=== PATIENT | female | born 1960 | race Caucasian/White ===

== ENCOUNTER 2022-11-22 08:36 | Outpatient (CLI) | payer MEDICARE, BC, SELFPAY | END 2022-11-22 08:37 | disposition home or self-care (01) | PROVIDERS: PCP Nurse Practitioner Family; Visit Provider Nurse Practitioner Family | DX: E78.5 Hyperlipidemia, unspecified (principal); M81.0 Age-related osteoporosis without current pathological fracture; J44.9 Chronic obstructive pulmonary disease, unspecified | CPT/HCPCS: 80053; 80061; 82306; 85025 ==

== ENCOUNTER 2023-01-28 12:53 | Outpatient (CLI) | payer MEDICARE, BC, SELFPAY ==
--- NOTE | 2023-01-28 13:00 | CRLHL7_ITS ---
For Patients: As a result of the Century Cures Act, medical imaging exams and procedure reports are released immediately into your electronic medical record. You may view this report before your referring provider. If you have questions, please contact your health care provider. INDICATION: Lumbar radiculopathy. TECHNIQUE: Multiplanar multisequence noncontrast MR images acquired through the lumbar spine. COMPARISON: Lumbar spine radiographs 01/15/2023. FINDINGS: The lumbar lordosis is maintained. Mild leftward lumbar curvature. Vertebral heights maintained. No acute fracture. No T1 hypointense marrow replacing lesions. Normal conus terminates at L1-2. T12-L1: Mild disc degeneration. Shallow posterior disc bulge. No spinal canal or neural foraminal narrowing. L1-2: Mild disc degeneration. Shallow posterior bulge. No spinal canal or neural foraminal narrowing. L2-3: No spinal canal or neural foraminal narrowing. L3-4: Mild disc degeneration. No spinal canal or neural foraminal narrowing. L4-5: Mild to moderate disc degeneration. Shallow posterior disc bulge. Superiorly migrated left foraminal/far lateral disc extrusion measuring 4 mm in short axis contacts the exiting left L4 nerve root. Mild facet arthropathy. No spinal canal narrowing. Mild left without right neural foraminal narrowing. L5-S1: Moderate disc degeneration. Minimal endplate edema. Annular fissure. Shallow posterior disc bulge. Mild facet arthropathy. No spinal canal or neural foraminal narrowing. T2 hyperintense lesion in the right kidney inferior pole, most typical for a small renal cyst. IMPRESSION: 1. Multilevel lumbar spondylosis without spinal canal or neural foraminal stenosis. 2. At L4-5, superiorly migrated left foraminal/far lateral disc extrusion contacts the exiting left L4 nerve root and mildly narrows the left neural foramen. Dictated by Luciano Lozano MD @ 01/28/2023 2:28:00 PM (Electronically Signed)
== END 2023-01-28 12:54 | disposition home or self-care (01) ==
LOC: MRI 12:56
PROVIDERS: PCP Nurse Practitioner Family; Visit Provider Nurse Practitioner Family
DX: M54.16 Radiculopathy, lumbar region (principal); M47.896 Other spondylosis, lumbar region; M51.26 Other intervertebral disc displacement, lumbar region
CPT/HCPCS: 72148

== ENCOUNTER 2023-04-10 14:07 | Outpatient (CLI) | payer MEDICARE, BC, SELFPAY ==
--- NOTE | 2023-04-10 14:30 | CRLHL7_ITS ---
For Patients: As a result of the Century Cures Act, medical imaging exams and procedure reports are released immediately into your electronic medical record. You may view this report before your referring provider. If you have questions, please contact your health care provider. DXA BONE MINERAL DENSITY STUDY Reason for exam: Osteoporosis. Current height (in): 60. Weight (lb): 108. Menopause age: 40. Ethnicity: White. 1. Have you had a previous hip or vertebral fracture? Yes. 2. Have you had any fractures during your adult life which did not result from significant trauma (e.g., auto accident)? Yes. 3. Did either of your parents have a hip fracture? No. 4. Do you smoke? No. 5. Have you ever taken Glucocorticoids? No. 6. Do you have rheumatoid arthritis? No. 7. Do you have secondary osteoporosis? No. 8. Do you drink 3 or more alcoholic drinks per day? No. 9. Are you being treated for osteoporosis? Yes. 10. Have you ever taken any of the following medications: Actonel, Evista, Fosamax, Miacalcin, Reclast, Boniva, Forteo, HRT (i.e., estrogen/hormone therapy), Protelos, Prolia, Vitamin D, Calcium, other ??? please specify. ANSWER: Yes, Fosamax, vitamin D, and calcium. 11. Do you have any of the following medical conditions: Anorexia or bulimia, asthma or emphysema, end stage renal disease, hyperparathyroidism, any seizure disorders, cancer, inflammatory bowel diseases, hysterectomy, other ??? please specify. ANSWER: Yes, asthma or emphysema and lupus. 12. What was your maximum height (inches)? 60. 13. Do you perform weight bearing exercise regularly? Yes. 14. Do you regularly consume dairy products? Yes. 15. Do you drink caffeinated beverages? Yes. If female: 16. At what age did your period start? 16. 17. Are you premenopausal? No. 18. How many full-term pregnancies have you had? 2. 19. Have you ever missed your period for more than 6 months in a row (not including or menopause)? No. TECHNIQUE: Bone mineral density study was performed using the [employer]. FINDINGS: The results of the study expressed as bone mineral density (BMD) are as follows: Lumbar spine L1 to L4: BMD: 0.679 g/cm2. T-score: -3.3. Z-score: -1.7 Neck Left: BMD: 0.426 g/cm2. T-score: -3.8. Z-score: -2.4 Right: BMD: 0.469 g/cm2. T-score: -3.4. Z-score: -2.0 Total Left: BMD: 0.492 g/cm2. T-score: -3.7. Z-score: -2.6 Right: BMD: 0.515 g/cm2. T-score: -3.5. Z-score: -2.4 IMPRESSION: Osteoporosis. Reginald Harper M.D. Diagnostic Radiologist [email or web address] richmond/Dictated by: Reginald Harper MD @ 04/10/2023 3:22:00 PM (Electronically Signed)
--- NOTE | 2023-04-10 15:00 | CRLHL7_ITS ---
For Patients: As a result of the Century Cures Act, medical imaging exams and procedure reports are released immediately into your electronic medical record. You may view this report before your referring provider. If you have questions, please contact your health care provider. BILATERAL SCREENING MAMMOGRAM WITH COMPUTER-AIDED DETECTION AND TOMOSYNTHESIS TECHNIQUE: CC and MLO views were obtained. These mammographic images have been obtained using full-field digital technique. These mammographic images were interpreted with the benefit of computer-aided detection. Breast Tomosynthesis was used in this interpretation. COMPARISON FILM: Outside images 08/18/20, 04/11/18. FINDINGS: There are scattered areas of fibroglandular density IMPRESSION: There is no radiographic evidence for malignancy. ASSESSMENT: BI-RADS Category 1: Negative RECOMMENDATION: Routine screening mammogram in 1 year. A lay language report of this examination will be provided to the patient. Reginald Harper M.D. Diagnostic Radiologist [email or web address] SLADE/Dictated by: Reginald Harper MD @ 04/12/2023 9:13:00 AM (Electronically Signed)
== END 2023-04-10 14:08 | disposition home or self-care (01) ==
LOC: RAD 14:08
PROVIDERS: PCP Nurse Practitioner Family; Visit Provider Nurse Practitioner Family
DX: Z12.31 Encounter for screening mammogram for malignant neoplasm of breast (principal); M81.0 Age-related osteoporosis without current pathological fracture
CPT/HCPCS: 77063; 77067; 77080

== ENCOUNTER 2023-08-30 12:45 | Outpatient (CLI) | payer MEDICARE, BC, SELFPAY ==
--- OUTSIDE RECORDS SUMMARY | 2023-08-30 12:54 | XMS_ITS | Clinical Summary ---
Author Name Unknown Organization [employer] Address [place], [place] [address] Care Team Providers Care Schedule Checker Name Role Phone [facility] [employer] [facility] Primary Care Provider + [facility] [place] Unavailable Allergies Active Allergy Reactions Criticality Noted Date Comments Warfarin Sodium Itching 05/02/2021 Hydroxychloroquine Itching 06/18/2021 Acetaminophen Hepatic Dysfunction 05/07/2012 Medications Medication Sig Dispensed Refills Start Date End Date Status Nebulizer Accessories For home use. Length of need: 99 1 Kit 0 05/12/2012 Active Nebulizer Nebulizer, neb kit, neb cup and mask. Medication: duoneb For home use. Length of need for Medicare patients: 99 1 Device 0 05/12/2012 Active albuterol-ipratropiu m (DUONEB) (2.5-0.5 mg) in 3 mL NEBULIZATION solution Inhale 1 Neb via a nebulizer 4 times daily. Active fluticasone propion-salmeteroL (Advair Diskus) 500-50 mcg/Dose diskus inhaler Inhale 1 Puff by mouth every 12 hours. Active albuterol HFA (PRO-AIR; VENTOLIN; PROVENTIL) 90 mcg/actuation inhaler Inhale 2 Puffs by mouth every 6 hours if needed for Shortness of Breath 1st choice. Active hydrOXYzine HCL (ATARAX) 25 mg tablet Take 25 mg by mouth 3 times daily if needed for Itching. Active triamcinolone (ARISTOCORT; KENALOG) 0.1 % cream Apply topically to affected area(s) 2 times daily if needed. For up to 2 weeks at a time. Active simvastatin (ZOCOR) 10 mg tablet Take 10 mg by mouth at bedtime. Active tiotropium (spiriva) 18 mcg inhalation capsule Inhale 18 mcg by mouth once daily in the afternoon. Using a SPRIVA HANDIHALER garcia the capsule, then by mouth breathe in the powder. Inhale twice from the same capsule for full dose. Active tiZANidine (ZANAFLEX) 4 mg capsule Take 8 mg by mouth at bedtime. Active albuterol (PROVENTIL) 0.083 % neb solutionIndications: COPD with acute exacerbation (HC) Inhale 3 mL (2.5 mg) via a nebulizer every 2 hours if needed for Shortness of Breath 2nd choice. 180 mL 05/03/2021 Active medication order composer Take 1 Capsule by mouth once daily. Osteo 7 Bone Support Formula supplement Active TURMERIC ORAL Take 1 Capsule by mouth once daily with evening meal. 1800 mg capsule Active cholecalciferol (Vitamin D) 1,000 unit capsule Take 1,000 units by mouth once daily. Active magnesium oxide,aspartate,citr 400 mg magnesium cap Take 1 Capsule by mouth once daily. Active guaiFENesin SR (Mucinex) 1,200 mg Ta12 Take 1,200 mg by mouth every 12 hours if needed for Expectoration. Active oxygen-air delivery systems (HOME OXYGEN)Indications:C hronic obstructive pulmonary disease, unspecified COPD type (HC) Oxygen for home use. Liters per minute: 2 L/min via nasal cannula. Frequency of use: Continuous with portability; Length of need: indefinitely. Requesting an oxygen tank. 1 Each 06/19/2021 Active predniSONE (DELTASONE) 20 mg tabletIndications:Pn eumonia of left upper lobe due to infectious organism Take 1 Tablet (20 mg) by mouth once daily with a meal. Take 2 tablets for 2 days then 1 tablet for 2 days. 6 Tablet 06/19/2021 Active oxygen-air delivery systems (HOME OXYGEN) 1 Each once daily if needed. 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 05/12/2021 Overview: On Xarelto Acute and chronic respiratory failure with hypox ia 05/02/2021 COPD with acute exacerbation 05/02/2021 Community acquired pneumonia of right upper lobe of lung 05/02/2021 Sepsis due to pneumonia 05/02/2021 Antiphospholipid antibody syndrome 11/22/2017 Age-related osteoporosis wit hout current pathological fracture 07/29/2017 Chronic low back pain 05/26/2015 Radicular low back pain 05/26/2015 COPD (chronic obstructive pulmonary disease) Systemic lupus erythematosus 05/16/2012 microscopic Hematuria 05/12/2012 Chronic low blood pressure Overview: per pt Resolved Problems Problem Noted Date Diagnosed Date Resolved Date Acute respiratory failure with hypercapnia 05/07/2012 05/23/2012 steroid induced hyperglycemia 05/07/2012 05/23/2012 Tobacco use 06/25/2013 acute exacerbation of COPD ( chronic obstructive pulmonary disease) 3 Immunizations Name Administration Dates Next Due Influenza RIV4 (Age 18+ Year s) PRESERV FREE 01/26/2021,02/01/2020,05/29/2019,2018 Influenza, IIV3 (Age >=3 years) 05/12/2012 Pneumococcal Poly,23-Valent (Pneumovax) 05/09/2018,05/12/2012 Tdap 07/16/2012 Zoster (Shingrix-RZV, recombinant) 03/10/2021, Family History Medical History Relation Name Comments Cancer-colon Brother 1 alive, older, c olon ca Heart Disease Brother 2 alive, ygr, [place] Diabetes Father dec age 50s jenny betes Stroke Father Unknown Maternal Grandfather Cancer-breast Maternal Grandmother ? age Unknown Maternal Grandmother Diabetes Mother alive, dm, leuk emia Stroke Paternal Grandfather Unknown Paternal Grandmother Good Health Son 1 Good Health Son 2 Relation Name Status Comments Brother 1 Alive Brother 2 Alive Father Maternal Grandfather Maternal Grandmother Mother Alive Paternal Grandfather Paternal Grandmother Alive Son 1 Alive Son 2 Alive Social History Tobacco Use Types Packs/Day Years Used Date Smoking Tobacco: Former Cigarettes Q uit: 05/03/2012 Smokeless Tobacco: Never Alcohol Use Standard Drinks/Week Comments Yes 0 (1 standard drink = 0.6 oz pur e alcohol) rarely PHQ-2 Answer Date Recorded PHQ-2 TOTAL SCORE 2 06/19/2021 Social Connections Answer Date Recorded Frequency of Communication with Friends and Fami ly Not on file 05/12/2021 Financial Resource Strain Answer Date R ecorded Difficulty of Paying Living Expenses Not on file 05/12/2021 Difficulty of Paying Living Expenses Not on file 05/12/2021 Sex and Gender Information Value Date Recorded Sex Assigned at Not on file Gender Identity Not on file Sexual Orientation Not on file Obstetrics History Para Term AB IAB SAB Ectopic Multiple Livin g Live Births 2 2 2 Date Outcome GA Total Labor Labor/2nd/3rd Weight Sex Delivery Anes PTL Rafia A1 A5 Name Cl in Para Vag Para Vag Last Filed Vital Signs Vital Sign Reading Time Taken Comments Blood Pressure 130/90 07/03/2021 1:10 PM HVAC TECH Pulse 80 07/03/2021 1:10 PM HVAC TECH Temperature 36.7 ??C (98 ??F) 07/03/2021 1:10 PM HVAC TECH Respiratory Rate 22 07/03/2021 1:10 PM HVAC TECH Oxygen Saturation 96% 07/03/2021 1:10 PM HVAC TECH Inhaled Oxygen Concentration - - Weight 50.3 kg (111 lb) 06/19/2021 11:00 AM HVAC TECH Height 152.4 cm (5') 06/19/2021 11:00 AM HVAC TECH Body Mass Index 21.68 06/19/2021 11:00 AM HVAC TECH Plan of Treatment Health Maintenance Due Date Last Done Comments Colonoscopy through age 75 1960 HIV for age 15-65 1975 Hepatitis C screening for age 18-79 1978 Pap test for age 21-65 1981 Mammogram for age 45-75 06/25/2014 06/25/2013 Lipids for age 45-75 07/16/2017 07/16/2012 BMI (ht and wt on same day) for age 18+ 06/19/2022 06/19/2021, 05/26/2015 Depression screening for age 12+ 06/21/2022 06/21/2021, 06/19/2021, 06/18/2021, Additional history exists Tetanus booster 07/16/2022 07/16/2012 COVID-19 vaccine series ( season) 2023 01/10/2021, 08/13/2020, 07/16/2020 Influenza for age 50-64 01/05/2024 01/27/20, 02/01/2020, 05/29/2019, Additional history exists Tdap Completed 07/16/2012 Pneumococcal series for age 6-64 Aged Out 05/09/2018, 05/12/2012 No longer eligibl e based on patient's age to complete this topic Zoster (shingles) series for age 50+ Completed 03/10/2021, 12/09/2020 Procedures Procedure Name Priority Date/Time Associated Diagnosis Comments XR MAMMO BILAT SCREEN FFDM (IA) Routine 06/25/2013 12:52 PM HVAC TECH Other screening mammogram LIPID PANEL W REFLEX MEASURED LDL Timed 07/16/2012 4:47 PM CDT Health care maintenance from Last 3 Months or Most Recently Relevant to Health Maintenance Results * XR MAMMO BILAT SCREEN FFDM (06/25/2013 12:52 PM HVAC TECH) Anatomical Region Laterality Modality BREASTS, Breast Left, Breast Right Bilateral Mammography Impressions 07/03/2013 4:02 PM HVAC TECH ??There is no radiographic evidence for malignancy. ??Recommend annual mammograms. A lay language report of this examination will be provided to the patient. MAMMOGRAM ASSESSMENT: ??ACR 1 Negative Narrative 07/03/2013 4:02 PM HVAC TECH XR MAMMO BILAT SCREEN FFDM [G0202.0] CLINICAL HISTORY: ??This is an asymptomatic 53 y.o. patient. INDICATION FOR EXAM: Mammogram Screening. TECHNIQUE: CC & MLO views were obtained. ??This digital study was evaluated with the assistance of Computer-Aided Detection. ?? COMPARISON FILM: Yes 03/06/06 OTHER FACILITY FINDINGS: ??Mammographically, the breast tissue has scattered fibroglandular densities (approximately 25% - 50% glandular). ??There are no dominant masses, suspicious micro calcifications or areas of architectural distortion. Procedure Note Lucas Hernandez MD - 07/03/2013 XR MAMMO BILAT SCREEN FFDM [G0202.0] CLINICAL HISTORY: This is an asymptomatic 53 y.o. patient. INDICATION FOR EXAM: Mammogram Screening. TECHNIQUE: CC & MLO views were obtained. This digital study was evaluatedwith the assistance of Computer-Aided Detection. COMPARISON FILM: Yes 03/06/06 OTHER FACILITY FINDINGS: Mammographically, the breast tissue has scatteredfibroglandular densities (approximately 25% - 50% glandular). There areno dominant masses, suspicious micro calcifications or areas ofarchitectural distortion. IMPRESSION: There is no radiographic evidence for malignancy. Recommendannual mammograms. A lay language report of this examination will be provided to the patient. MAMMOGRAM ASSESSMENT: ACR 1 Negative Lars Langford MD MAMMO * (ABNORMAL) LIPID PANEL W REFLEX MEASURED LDL (07/16/2012 4:47 PM CDT) CHOLESTEROL,TOTAL 232(H) 100 - 199 mg/dL [facility] TRIGLYCERIDES 91 <150 mg/dL [facility] HDL CHOLESTEROL 64 >40 mg/dL [facility] CHOL/HDL RATIO 3.63 <4.50 [facility] NON-HDL CHOLESTEROL 168 Undefined mg/dL [facility] LDL CHOLESTEROL 150(H) <131 mg/dL [facility] PATIENT STATUS Fasting [facility] Blood specimen (specimen) BLOOD SPECIMEN / Unknown 07/16/2012 4:47 PM CDT 07/16/2012 4:39 PM CDT Lars Langford MD CHEMISTRY [facility] [address] [place] [address] from Last 3 Months or Most Recently Relevant to Health Maintenance Advance Directives Documents on File Type Date Recorded Patient Senior Physician Expl anation Healthcare Directive 05/03/2021 021 * Full Code (Latest Code Status on File) Date Activated Date Inactivated Comments 06/14/2021 9:18 AM 06/15/2021 1:46 PM Question Answer Comments Code Status Discussion: Reviewed Preferences * Full Code Date Activated Date Inactivated Comments 06/13/2021 7:29 PM 06/14/2021 9:18 AM Question Answer Comments Code Status Discussion: Unable to Assess Preferences, Provider to review later * Full Code Date Activated Date Inactivated Comments 05/02/2021 7:34 PM 05/03/2021 4:06 PM Question Answer Comments Code Status Discussion: Reviewed Preferences * Full Code Date Activated Date Inactivated Comments 05/07/2012 10:10 PM 05/12/2012 7:13 PM Care Teams Schedule Checker Relationship Specialty Start Date End Date [facility] [address] [place] [address] PCP - General 01/20/20 [facility] [address], [place] [address] 06/16/21
--- OUTSIDE RECORDS SUMMARY | 2023-08-30 12:55 | XMS_ITS | Encounter Summary ---
Author Name Unknown Organization [facility] Address [address] [place] [address]. [place] [address] Care Team Providers Care Medical Physicist Name Role Phone Betty Gupta MD Unavailable [phone] Mehreen Toussaint NP Primary Care Provider Nilton Roach PA-C Unavailable [phone] Reason for Visit * Reason Onset Date Comments Fax 07/11/2023 Encounter Details Date Type Department Care Team (Late st Contact Info) Description 07/11/2023 Telephone [facility] [address] [phone] Jean Guerin MD [address] [place] [address] Fax Social History Tobacco Use Types Packs/Day Years Used Date Smoking Tobacco: Former Cigarettes 1 40 0 06/06/1979 - 06/06/2019 Smokeless Tobacco: Never Comments:Occasional Alcohol Use Standard Drinks/Week Comments No 0 (1 standard drink = 0.6 oz pur e alcohol) PHQ-2 Answer Date Recorded PHQ-2 Score 0 03/07/2023 Adolescent Education Answer Date Record ed Getting School Help Needed Not on file 01/25 Sex and Gender Information Value Date Recorded Sex Assigned at Female 04/23/2018 4:04 PM BONDED STRAND OPERATOR Gender Identity Female 04/23/2018 4:04 PM BONDED STRAND OPERATOR Sexual Orientation Straight 04/23/2018 4: 04 PM BONDED STRAND OPERATOR documented as of this encounter Miscellaneous Notes * Telephone Encounter - Sabina Kwan - 07/11/2023 2:43 PM CST Tubing set up kit order signed and faxed to [employer] at [phone] ED STRAND OPERATOR documented in this encounter Plan of Treatment Upcoming Encounters Date Type Department Care Team (Late st Contact Info) Description 09/13/2023 1:00 PM CDT Office Visit [facility] [place] [address] [facility] [facility] [place] [phone] Saroj Romeo MD [address] [facility] [place], [place] [address] 10/01/2023 2:00 PM CDT Virtual Visit [facility] [address] [place] [phone] Farzana Sabillon MD [address] [place] [address] [address] [place], [place] [address] 11/20/2023 11:00 AM CDT Office Visit [facility] [place] [address] [place] [phone] Jean Guerin MD [address] [place], [place] [id number] documented as of this encounter Visit Diagnoses Not on filedocumented in this encounter Additional Health Concerns Assessment Noted Time PHQ-9 Depression Total Score: 2 09/21/19 20 7:02 AM CDT documented as of this encounter Care Teams Medical Physicist Relationship Specialty Start Date End Date Mehreen Toussaint NP [address] [address] PCP - General 03/07/23 [place] [address] [place] [address] Assigned Rheumatology Provider 02/26/20 Nilton Roach PA-C [address] [facility] [address] [place] [address] Assigned PCP 05/30/23 documented as of this encounter
--- OUTSIDE RECORDS SUMMARY | 2023-08-30 12:55 | XMS_ITS | Clinical Summary ---
Author Name Unknown Organization [facility] Address [address] [place] [address] Care Team Providers Care Social Services Director Name Role Phone Betty Gupta MD Unavailable [phone] Mehreen Toussaint NP Primary Care Provider Nilton Medellin PA-C Unavailable [phone] Farzana Sabillon MD Unavailable [phone] Allergies Active Allergy Reactions Criticality Noted Date Comments Acetaminophen Other (See Comments) 05/07/2012 Patient states she gets very itchy and will not tolerate any acetaminophen product. Warfarin Hives,Itching 12/11/2017 No Clinical Screening - See Comments 05/19/[address] scan- caused itching reaction. Patient cannot recall what this was. Nelida Aragon LPN on 05/19/2019 at 2:53 PM Medications Medication Sig Dispensed Refills Start Date End Date Status MUCINEX 600 MG 12 hr tablet TAKE 2 TABLETS BY MOUTH TWICE A DAY FOR 20 DAYS. 0 02/20/2017 Active Calcium Citrate-Vitamin D (CITRACAL + D PO) Take 1 tablet by mouth 2 times daily Active albuterol (2.5 MG/3ML) 0.083% neb solutionIndications: Simple chronic bronchitis (H) INHALE 3 ML VIA NEBULIZER EVERY 6 HOURS NEEDED FOR WHEEZING. 360 mL 5 07/19/2017 Active rivaroxaban ANTICOAGULANT (XARELTO) 20 MG TABS tabletIndications:An tiphospholipid antibody syndrome (H24),Embolism and thrombosis (H) Take 1 tablet (20 mg) by mouth daily (with dinner) 30 tablet 11 06/14/2020 Active triamcinolone (KENALOG) 0.1 % external creamIndications:Ecz lizzette, unspecified type Apply topically 2 times daily For up to 2 weeks at a time 45 g 1 08/05/2020 Active tiZANidine (ZANAFLEX) 2 MG tabletIndications:Ch ronic bilateral low back pain with bilateral sciatica TAKE 1-2 TABLETS (2-4 MG) BY MOUTH 3 TIMES DAILY NEEDED FOR MUSCLE SPASMS 180 tablet 09/12/2020 Active tiotropium (SPIRIVA HANDIHALER) 18 MCG inhaled capsuleIndications:S imple chronic bronchitis (H) INHALE 1 CAPSULE (18 MCG) INTO THE LUNGS DAILY 90 capsule 1 01/26/2021 Active tiZANidine (ZANAFLEX) 4 MG capsuleIndications:C hronic bilateral low back pain with bilateral sciatica Take 1-2 capsules (4-8 mg) by mouth nightly as needed for muscle spasms 180 capsule 1 01/26/2021 Active budesonide-formotero l (SYMBICORT) 160-4.5 MCG/ACT InhalerIndications:S tage 4 very severe COPD by GOLD classification (H) Inhale 2 puffs into the lungs 2 times daily 10.2 g 11 09/01/2021 Active albuterol (PROVENTIL) (2.5 MG/3ML) 0.083% neb solutionIndications: COPD exacerbation (H) Take 1 vial (2.5 mg) by nebulization every 6 hours as needed for shortness of breath / dyspnea or wheezing 90 mL 12/21/2021 Active UNABLE TO FIND MEDICATION NAME: Tumeric Gummies Active diphenhydrAMINE (BENADRYL) 25 MG capsule Take 25 mg by mouth every 6 hours as needed for itching or allergies Takes at HS for itching Active ipratropium - albuterol 0.5 mg/2.5 mg/3 mL (DUONEB) 0.5-2.5 (3) MG/3ML neb solutionIndications: Simple chronic bronchitis (H) INHALE 1 VIAL VIA NEBULIZER FOUR TIMES DAILY 1080 mL 1 10/09/2022 Active budeson-glycopyrrol- formoterol (BREZTRI AEROSPHERE) 160-9-4.8 MCG/ACT AERO inhalerIndications:S imple chronic bronchitis (H) Inhale 2 puffs into the lungs 2 times daily 32.1 g 11 11/27/2022 Active albuterol (PROAIR HFA/PROVENTIL HFA/VENTOLIN HFA) 108 (90 Base) MCG/ACT inhalerIndications:S imple chronic bronchitis (H) INHALE 2 PUFFS ORAL EVERY 6 HOURS NEED FOR WHEEZE OR SHORTNESS OF BREATH. APPT NEEDED FOR REFILLS 8.5 g 12/18/2022 Active azithromycin (ZITHROMAX) 250 MG tabletIndications:St age 4 very severe COPD by GOLD classification (H) Take 1 tablet (250 mg) by mouth three times a week 36 tablet 11 01/07/2023 Active Belimumab 200 MG/ML SOAJIndications:Syst emic lupus erythematosus, organ or system involvement unspecified (H),Antiphospholipid syndrome (H24),Encounter for screening for other viral diseases Inject 200 mg Subcutaneous every 7 days Hold for signs of infection and seek medical attention. 4 mL 12 03/07/2023 Active tiotropium (SPIRIVA) 18 MCG inhaled capsuleIndications:S tage 4 very severe COPD by GOLD classification (H) Inhale 1 capsule (18 mcg) into the lungs daily 30 capsule 11 05/22/2023 Active budesonide-formotero l (SYMBICORT) 160-4.5 MCG/ACT InhalerIndications:S tage 4 very severe COPD by GOLD classification (H) INHALE 2 PUFFS INTO THE LUNGS TWICE DAILY 30.6 g 3 05/22/2023 Active Active Problems Problem Noted Date Diagnosed Date Cervical cancer screening 06/09/2019 Overview: ??Dx of Lupus, on immunosuppressant medication ?? 05/29/2019 NIL Pap, Neg HPV. Plan cotest in 3 years. Source for guideline: Journal of Lower Genital Tract Disease, Vol 23, # 2, August 2018 Closed fracture of proximal end of right humerus 08/07/2018 DDD (degenerative disc disease), lumbar 04/05/20 18 Long-term (current) use of anticoagulants [Z79.0 1] 11/22/2017 Embolism and thrombosis (H) [I74.9] 11/22/2017 Antiphospholipid antibody syndrome (H24) 018 Age-related osteoporosis wit hout current pathological fracture 07/29/2017 Acute respiratory failure with hypoxia 8 COPD exacerbation 07/10/2017 Sepsis 07/10/2017 Tobacco use 05/29/2017 Osteopenia of right shoulder 05/28/2017 Simple chronic bronchitis 01/04/2017 Chronic bilateral low back pain with bilateral s ciatica 01/04/2017 Systemic lupus erythematosus 01/04/2017 Joint pain SLE (systemic lupus erythematosus related syndro me) Resolved Problems Problem Noted Date Diagnosed Date Resolved Date Influenza B 07/10/2017 01/19/2019 Encounters Date Type Department Care Team Description 08/13/2023 11:30 AM CDT Virtual Visit [place] [address] [place] [phone] Mehreen Toussaint, Farzana Ring MD Age-related osteoporosis without current pathological fracture 08/13/2023 MyC Medical Advice [facility] [address] [facility] [place] [phone] Aranza Morales CMA 08/12/2023 11:00 AM CDT Lab [facility] [address] [place] [address] Systemic lupus erythematosus, organ or system involvement unspecified (H); Antiphospholipid syndrome (H24); Encounter for screening for other viral diseases 08/12/2023 Travel 07/16/2023 Telephone [place] [address] [place] [phone] Betty Gupta MD 07/11/2023 Telephone [facility] [address] [phone] Jean Guerin MD Fax 07/01/2023 MyC Medical Advice [place] [address] [place] [phone] Betty Gupta MD 06/14/2023 Telephone [facility] [address] [phone] Jean Guerin MD 06/13/2023 MyC Medical Advice [facility] [address] [phone] Jean Guerin MD 06/10/2023 12:30 PM FOREIGN AGENT Office Visit [facility] [address] 3rd [place] [phone] Jean Guerin MD Stage 4 very severe COPD by GOLD classification (H) 06/10/2023 Travel 06/07/2023 Orders Only [facility] [address] [phone] Marcelle Hopson RN Stage 4 very severe COPD by GOLD classification (H) (Primary Dx) 06/06/[address] [phone] Jean Guerin MD Call To Schedule Appointment 06/06/2023 Orders Only [facility] [address] [phone] Marcelle Hopson, RN Stage 4 very severe COPD by GOLD classification (H) (Primary Dx) 06/06/2023 Telephone [facility] [address] [phone] Marcelle Hopson, RN 06/06/2023 Telephone [facility] [address] [phone] Jean Guerin MD from Last 3 Months Immunizations Name Administration Dates Next Due COVID-19 Bivalent 18+ (Moderna) 05/02/2022 COVID-19 Monovalent 18+ (Moderna) 01/10/2021,02/2021,07/16/2020 COVID-19 Monovalent Booster 18+ (Moderna) 06/30/2021 Influenza (IIV3) PF 05/12/2012 Influenza Vaccine 18-64 (Flublok) 2020,02/01/2020,05/29/2019,2018 Influenza Vaccine 65+ (Fluzone HD) 02/20/2022 Pneumococcal 20 valent Conju gate (Prevnar 20) 02/20/2022 Pneumococcal 23 valent 05/09/2018,05/12/2012 TDAP Vaccine (Adacel) 07/16/2012 Zoster recombinant adjuvante d (SHINGRIX) 03/10/2021,12/09/2020 Family History Medical History Relation Comments Coronary Artery Disease Brother Diabetes Type 2 Father Kidney Disease Father Diabetes Mother Heart Failure Mother Leukemia Mother Relation Status Comments Brother Father Mother Social History Tobacco Use Types Packs/Day Years Used Date Smoking Tobacco: Former Cigarettes 1 40 0 06/06/1979 - 06/06/2019 Smokeless Tobacco: Never Tobacco Cessation:Counseling Given: Not Answered Comments:Occasional Alcohol Use Standard Drinks/Week Comments No 0 (1 standard drink = 0.6 oz pur e alcohol) PHQ-2 Answer Date Recorded PHQ-2 Score 0 08/13/2023 Adolescent Education Answer Date Record ed Getting School Help Needed Not on file 01/25 Sex and Gender Information Value Date Recorded Sex Assigned at Female 04/23/2018 4:04 PM FOREIGN AGENT Gender Identity Female 04/23/2018 4:04 PM FOREIGN AGENT Sexual Orientation Straight 04/23/2018 4: 04 PM FOREIGN AGENT Last Filed Vital Signs Vital Sign Reading Time Taken Comments Blood Pressure 121/76 05/22/2023 11:13 AM FOREIGN AGENT Pulse 124 05/22/2023 11:13 AM FOREIGN AGENT Temperature 36 ??C (96.8 ??F) 11/27/2022 4:06 PM CDT Respiratory Rate 17 05/22/2023 11:13 AM FOREIGN AGENT Oxygen Saturation 94% 05/22/2023 11:13 AM FOREIGN AGENT 3L Inhaled Oxygen Concentration - - Weight 49 kg (108 lb) 05/22/2023 11:13 AM FOREIGN AGENT Height 152.4 cm (5') 05/22/2023 11:13 AM FOREIGN AGENT Body Mass Index 21.09 05/22/2023 11:13 AM FOREIGN AGENT Plan of Treatment Upcoming Encounters Date Type Department Care Team (Late st Contact Info) Description 09/13/2023 1:00 PM CDT Office Visit [facility] [place] [address] [address] [place] [phone] Saroj Romeo MD [address] [facility] [address] [place], [place] [phone] 10/01/2023 2:00 PM CDT Virtual Visit [facility] [address] [place] [address] Farzana Sabillon MD [address] [place] [address] [address] [place], [place] [phone] 11/20/2023 11:00 AM CDT Office Visit [facility] [place] [address] [place] [phone] Jean Guerin MD [address] [place], [place] [phone] Health Maintenance Due Date Last Done Comments ADVANCE CARE PLANNING 1960 COPD ACTION PLAN [address] CT COLONOGRAPHY 1960 FLEX SIG 1960 URINE DRUG SCREEN 1960 sDNA (Cologuard) 1960 HIV SCREENING 1975 MEDICARE ANNUAL WELLNESS VISIT 04/22/2020 04/22/2019, 04/04/2018 RSV VACCINE ( & 60+) (1 - 1-dose 60+ series) 2020 FIT 06/26/2020 06/26/2019 ANNUAL REVIEW OF HM ORDERS 01/26/2022 01/26/2021 HPV TEST 05/29/2022 05/29/2019, 05/29/2019 PAP 05/29/2022 05/29/2019 DTAP/TDAP/TD IMMUNIZATION (2 - Td or Tdap) 07/16/2022 07/16/2012 MAMMO SCREENING 08/18/2022 08/18/2020, 11/2017, 05/06/2014, Additional history exists GLUCOSE 08/06/2023 08/05/2020, 04/05, 12/08/2017, Additional history exists LUNG CANCER SCREENING 12/21/2023 12/20/2022 , 06/13/2021, 05/02/2021, Additional history exists COLONOSCOPY 12/30/2024 12/31/2019, 12/05, 02/25/2006 COLORECTAL CANCER SCREENING 12/30/2024 LIPID 08/05/2025 08/05/2020, 04/05, 04/04/2018, Additional history exists HEPATITIS C SCREENING Completed 04/22/2019 ZOSTER IMMUNIZATION Completed 03/10/2021, Pneumococcal Vaccine: Pediatrics (0 to 5 Years) and At-Risk Patients (6 to 64 Years) Completed 02/20/2022, 05/09/2018, 05/12/2012 INFLUENZA VACCINE Completed 02/08/2023, , 01/26/2021, Additional history exists COVID-19 Vaccine Completed 03/15/2023, , 06/30/2021, Additional history exists SPIROMETRY Completed 06/10/2023, 09/2023, 06/30/2021, Additional history exists PHQ-2 (once per calendar year) Completed 08/13/2023, 03/07/2023, 11/27/2022, Additional history exists HPV IMMUNIZATION Aged Out No longer e ligible based on patient's age to complete this topic IPV IMMUNIZATION Aged Out No longer e ligible based on patient's age to complete this topic MENINGITIS IMMUNIZATION Aged Out No l onger eligible based on patient's age to complete this topic RSV MONOCLONAL ANTIBODY Aged Out No l onger eligible based on patient's age to complete this topic Procedures Procedure Name Priority Date/Time Associated Diagnosis Comments UA MICROSCOPIC WITH REFLEX TO CULTURE Routine 08/12/2023 10:50 AM CDT Systemic lupus erythematosus, organ or system involvement unspecified (H) Antiphospholipid syndrome (H24) Encounter for screening for other viral diseases ERYTHROCYTE SEDIMENTATION RATE AUTO Routine 08/12/2023 10:50 AM CDT Systemic lupus erythematosus, organ or system involvement unspecified (H) Antiphospholipid syndrome (H24) Encounter for screening for other viral diseases CRP INFLAMMATION Routine 08/12/2023 10:5 0 AM CDT Systemic lupus erythematosus, organ or system involvement unspecified (H) Antiphospholipid syndrome (H24) Encounter for screening for other viral diseases PROTEIN RANDOM URINE Routine 08/12/2023 10:50 AM CDT Systemic lupus erythematosus, organ or system involvement unspecified (H) Antiphospholipid syndrome (H24) Encounter for screening for other viral diseases ROUTINE UA WITH MICROSCOPIC REFLEX TO CULTURE Routine 08/12/2023 10:50 AM CDT Systemic lupus erythematosus, organ or system involvement unspecified (H) Antiphospholipid syndrome (H24) Encounter for screening for other viral diseases COMPLEMENT C4 Routine 08/12/2023 10:50 AM CDT Systemic lupus erythematosus, organ or system involvement unspecified (H) Antiphospholipid syndrome (H24) Encounter for screening for other viral diseases COMPLEMENT C3 Routine 08/12/2023 10:50 AM CDT Systemic lupus erythematosus, organ or system involvement unspecified (H) Antiphospholipid syndrome (H24) Encounter for screening for other viral diseases DNA DOUBLE STRANDED ANTIBODIES Routine 08/12/2023 10:50 AM CDT Systemic lupus erythematosus, organ or system involvement unspecified (H) Antiphospholipid syndrome (H24) Encounter for screening for other viral diseases CREATININE Routine 08/12/2023 10:50 AM CDT Systemic lupus erythematosus, organ or system involvement unspecified (H) Antiphospholipid syndrome (H24) Encounter for screening for other viral diseases ALBUMIN LEVEL Routine 08/12/2023 10:50 AM CDT Systemic lupus erythematosus, organ or system involvement unspecified (H) Antiphospholipid syndrome (H24) Encounter for screening for other viral diseases ALT Routine 08/12/2023 10:50 AM CDT Systemic lupus erythematosus, organ or system involvement unspecified (H) Antiphospholipid syndrome (H24) Encounter for screening for other viral diseases AST Routine 08/12/2023 10:50 AM CDT Systemic lupus erythematosus, organ or system involvement unspecified (H) Antiphospholipid syndrome (H24) Encounter for screening for other viral diseases CBC WITH PLATELETS Routine 08/12/2023 10 :50 AM CDT Systemic lupus erythematosus, organ or system involvement unspecified (H) Antiphospholipid syndrome (H24) Encounter for screening for other viral diseases IN PULMONARY STRESS TEST Routine 06/10/2023 2:32 PM FOREIGN AGENT Stage 4 very severe COPD by GOLD classification (H) PFT GENERAL LAB TESTING Routine 06/10/2023 2:03 PM FOREIGN AGENT Stage 4 very severe COPD by GOLD classification (H) 6 MINUTE WALK TEST Routine 06/10/2023 Stage 4 very severe COPD by GOLD classification (H) CT CHEST LUNG CANCER SCREEN LOW DOSE WITHOUT Routine 12/20/2022 12:51 PM CDT Personal history of tobacco use MA SCREENING BILATERAL W/ GASTON Routine 08/18/2020 9:45 AM CDT Visit for screening mammogram BASIC METABOLIC PANEL Routine 08/05/2020 8:55 AM CDT Stage 4 very severe COPD by GOLD classification (H) LIPID REFLEX TO DIRECT LDL PANEL Routine 08/05/2020 8:55 AM CDT Hyperlipidemia LDL goal <130 COLONOSCOPY Routine 12/31/2019 9:00 AM CDT FECAL COLORECTAL CANCER SCREEN FIT Routine 06/26/2019 7:00 AM FOREIGN AGENT Colon cancer screening HPV HIGH RISK TYPES DNA CERVICAL Routine 05/29/2019 3:28 PM FOREIGN AGENT Screening for malignant neoplasm of cervix PAP IMAGED THIN LAYER SCREEN Routine 05/29/2019 3:17 PM FOREIGN AGENT Screening for malignant neoplasm of cervix HEPATITIS C SCREEN REFLEX TO HCV RNA QUANT AND GENOTYPE Routine 04/22/2019 4:32 PM FOREIGN AGENT Need for hepatitis C screening test from Last 3 Months or Most Recently Relevant to Health Maintenance Results * UA Microscopic with Reflex to Culture (08/12/2023 10:50 AM CDT) RBC Urine None Seen 0-2 /HPF /HPF [facility] 08/12/2023 11:12 AM CDT [facility] WBC Urine None Seen 0-5 /HPF /HPF [facility] 08/12/2023 11:12 AM CDT [facility] Urine URINE SPECIMEN OBTAINED BY CLEAN CATCH PROCEDURE / Unknown Non-blood Collection / Unknown 08/12/2023 10:50 AM CDT 08/12/2023 11:01 AM CDT Narrative [facility] - 08/12/2023 11:12 AM CDT Urine Culture not indicated Betty Gupta MD LAB - URINE ORDERABL ES LABORATORY [facility] [address] [facility] (no room number, 1st floor of clinic) [place] [address], [facility] [phone] * (ABNORMAL) Routine UA with Micro Reflex to Culture (08/12/2023 10:50 AM CDT) Color Urine Yellow Colorless, Straw, Light Yellow, Yellow 08/12/2023 11:12 AM CDT [facility] Appearance Urine Clear Clear 08/12/19 11:12 AM CDT [facility] Glucose Urine Negative Negative mg/dL 08/12/2023 11:12 AM CDT [facility] Bilirubin Urine Negative Negative 11:12 AM CDT [facility] Ketones Urine Negative Negative mg/dL 08/12/2023 11:12 AM CDT [facility] Specific Dickinson Urine 1.020 1.003 - 1.035 08/12/2023 11:12 AM CDT LABORATORY Blood Urine Trace(A) Negative 08/12/2023 11:12 AM CDT LABORATORY pH Urine 5.5 5.0 - 7.0 08/12/2023 11:12 AM CDT [facility] Protein Albumin Urine Negative Negative mg/dL 08/12/2023 11:12 AM CDT [facility] Urobilinogen Urine 0.2 0.2, 1.0 E.U./dL 08/12/2023 11:12 AM CDT [facility] Nitrite Urine Negative Negative 08/12/2023 11:12 AM CDT [facility] Leukocyte Esterase Urine Negative Negative 08/12/2023 11:12 AM CDT LABORATORY Urine URINE SPECIMEN OBTAINED BY CLEAN CATCH PROCEDURE / Unknown Non-blood Collection / Unknown 08/12/2023 10:50 AM CDT 08/12/2023 11:01 AM CDT Betty Gupta MD LAB - URINE ORDERABL ES LABORATORY [facility] [address] [facility] (no room number, 1st floor of clinic) [place] [address], [facility] [phone] * Protein random urine (08/12/2023 10:50 AM CDT) Total Protein Urine mg/dL <6.0 mg/dL 08/13/2023 12:18 AM CDT [facility] Comment:The reference ranges have not been established in urine protein. The results should be integrated into the clinical context for interpretation. Total Protein Urine mg/mg Creat 08/13/2023 12:18 AM CDT [facility] Comment:Unable to calculate, urine creatinine or protein is outside the detectable limits. Creatinine Urine mg/dL 56.8 mg/dL 08/13/2023 12:18 AM CDT [facility] Comment:The reference ranges have not been established in urine creatinine. The results should be integrated into the clinical context for interpretation. Urine URINE SPECIMEN OBTAINED BY CLEAN CATCH PROCEDURE / Unknown Non-blood Collection / Unknown 08/12/2023 10:50 AM CDT 08/12/2023 11:01 AM CDT Betty Gupta MD LAB - URINE ORDERABL ES [facility] [place] [facility] [address], [address] [place] [address], [facility] * Erythrocyte sedimentation rate auto (08/12/2023 10:50 AM CDT) Erythrocyte Sedimentation Rate 22 0 - 30 mm/hr 08/12/2023 11:04 AM CDT [facility] Blood BLOOD SPECIMEN / Unknown Venipuncture / Unknown 08/12/2023 10:50 AM CDT 08/12/2023 10:50 AM CDT Betty Gupta MD LAB - BLOOD ORDERABL ES LABORATORY [facility] [id number] [place] [address] Lab (no room number, 1st floor [facility] [place] [address] [phone] * DNA ANTIBODY, NATV/2 STRAND (08/12/2023 10:50 AM CDT) DNA (ds) Antibody 0.8 <10.0 IU/mL 08/15/2023 9:55 AM CDT [facility] C[facility]PROT/ENDO Comment:Negative Blood BLOOD SPECIMEN / Unknown Venipuncture / Unknown 08/12/2023 10:50 AM CDT 08/12/2023 10:50 AM CDT Narrative [facility] - 08/15/2023 9:55 AM CDT Negative: ??Less than 10 Equivocal: 10-15 Positive: ??Greater than 15 Betty Gupta MD LAB - BLOOD ORDERABL ES [facility]/PROT/ENDO [facility]/Prot/Endo [address] [facility] [address], [address] [place], [place] [address] * CRP inflammation (08/12/2023 10:50 AM CDT) CRP Inflammation <3.00 <5.00 mg/L 08/13/19 12:19 AM CDT [facility] Blood BLOOD SPECIMEN / Unknown Venipuncture / Unknown 08/12/2023 10:50 AM CDT 08/12/2023 10:50 AM CDT Betty Gupta MD LAB - BLOOD ORDERABL ES LABORATORY [facility] [address] [facility], [address] * Creatinine (08/12/2023 10:50 AM CDT) Creatinine 0.65 0.51 - 0.95 mg/dL 08/13/2023 12:19 AM CDT [facility] GFR Estimate >90 >60 mL/min/1.73 m2 08/13/2023 12:19 AM CDT [facility] Blood BLOOD SPECIMEN / Unknown Venipuncture / Unknown 08/12/2023 10:50 AM CDT 08/12/2023 10:50 AM CDT Betty Gupta MD LAB - BLOOD ORDERABL ES Performing Organization Address City/[facility] Co de Phone Number LABORATORY [facility] [address] [place] [address], [address] * Complement C4 (08/12/2023 10:50 AM CDT) C4 Complement 21 13 - 39 mg/dL 08/13/2023 1:49 PM CDT [facility]/END[facility] Blood BLOOD SPECIMEN / Unknown Venipuncture / Unknown 08/12/2023 10:50 AM CDT 08/12/2023 10:50 AM CDT Betty Gupta MD LAB - BLOOD ORDERABL ES [facility] CORE/PROT/ENDO [facility] Core/Prot/Endo [address] [facility], [address] * Complement C3 (08/12/2023 10:50 AM CDT) C3 Complement 138 81 - 157 mg/dL 08/13/2023 1:49 PM CDT [facility]/PROT/ENDO Blood BLOOD SPECIMEN / Unknown Venipuncture / Unknown 08/12/2023 10:50 AM CDT 08/12/2023 10:50 AM CDT Betty Gupta MD LAB - BLOOD ORDERABL ES SPECIALTY CORE/PROT/ENDO [facility] Core/Prot/Endo [address] [facility], [address] * AST (08/12/2023 10:50 AM CDT) AST 16 0 - 45 U/L 08/13/2023 12:19 AM CDT [facility] Blood BLOOD SPECIMEN / Unknown Venipuncture / Unknown 08/12/2023 10:50 AM CDT 08/12/2023 10:50 AM CDT Betty Gupta MD LAB - BLOOD ORDERABL ES [facility] LABORATORY [facility] [place] [facility] [address] [facility], [address] * ALT (08/12/2023 10:50 AM CDT) ALT 19 0 - 50 U/L 08/13/2023 12:19 AM CDT [facility] Blood BLOOD SPECIMEN / Unknown Venipuncture / Unknown 08/12/2023 10:50 AM CDT 08/12/2023 10:50 AM CDT Betty Gupta MD LAB - BLOOD ORDERABL ES [facility] LAB[facility]ATORY [facility] [place] [facility] [address] [facility], [address] * Albumin level (08/12/2023 10:50 AM CDT) Pathologist [facility] Albumin 4.4 3.5 - 5.2 g/dL 08/13/2023 12:19 AM CDT [facility] Blood BLOOD SPECIMEN / Unknown Venipuncture / Unknown 08/12/2023 10:50 AM CDT 08/12/2023 10:50 AM CDT Betty Gupta MD LAB - BLOOD ORDERABL ES [facility] LABORATORY [facility] [place] [facility] [address] [facility], [address] * CBC with platelets (08/12/2023 10:50 AM CDT) Pathologist [facility] WBC Count 6.9 4.0 - 11.0 10e3/uL 08/12/2023 10:56 AM CDT [facility] RBC Count 4.13 3.80 - 5.20 10e6/uL 08/12/2023 10:56 AM CDT [facility] Hemoglobin 12.1 11.7 - 15.7 g/dL 08/12/2023 10:56 AM CDT [facility] Hematocrit 38.2 35.0 - 47.0 % 08/12/2023 10:56 AM CDT [facility] MCV 93 78 - 100 fL 08/12/2023 10:56 AM CDT [facility] MCH 29.3 26.5 - 33.0 pg 08/12/2023 10:56 AM CDT [facility] MCHC 31.7 31.5 - 36.5 g/dL 08/12/2023 10:56 AM CDT [facility] RDW 13.9 10.0 - 15.0 % 08/12/2023 10:56 AM CDT [facility] Platelet Count 403 150 - 450 10e3/uL 08/12/2023 10:56 AM CDT [facility] Blood BLOOD SPECIMEN / Unknown Venipuncture / Unknown 08/12/2023 10:50 AM CDT 08/12/2023 10:50 AM CDT Betty Gupta MD LAB - BLOOD ORDERABL ES LABORATORY [facility] [address] [facility] (no room number, 1st floor of clinic) [place] [address], [facility] [phone] * General PFT Lab (Please always keep checked) (06/10/2023 2:03 PM FOREIGN AGENT) FIO2-Pre 28.00 % BREEZE PFT 06/10/2023 2:03 PM FOREIGN AGENT Narrative BREEZE PFT - 06/13/2023 6:45 PM FOREIGN AGENT IMPRESSION: Hypoxemia with ambulation on room air. Six minute walk distance is reduced indicating a decrease in exercise tolerance. There is significant oxygen desaturation, without hypoxemia, during the six- minute walk done on supplemental oxygen at 2 L/m. Christine Razo MD ?This interpretation has been electronically signed: ??CHRISTINE RAZO 06/13/2023 ??06:28:31 PM? Jean Guerin MD PFT ORDERABL ES Performing Organization Address [facility]/ZIP Co de Phone Number LUIS PFT * 6 minute walk test (06/10/2023) 6 min walk (FT) 680 1,352 ft 6 Min Walk (M) 207 412 m Jean Guerin MD PFT ORDERABL ES * CT Chest Lung Cancer Scrn Low Dose wo (12/20/2022 12:51 PM CDT) Anatomical Region Laterality Modality Chest, SUBRAD CT BODY, UMP CT CHEST, RAD CT Computed Tomography Impressions 12/20/2022 1:30 PM CDT IMPRESSION: 1. ACR Assessment Category: ??Lung-RADS Category 2. Benign appearance or behavior. Recommendation: ??continue annual screening. . 2. Significant Incidental Finding(s): ??Category S: No. 3. Nodular focus in the posterior upper thoracic trachea (9 mm) may reflect small amount of adherent mucus, although not well characterized. This could be evaluated with direct visualization, otherwise attention on follow-up. Download the LungRADS Assessment Categories table at this site: http://www.acr.org/Quality-Safety/Resources/LungRADS ANT ARMSTRONG MD Narrative 12/20/2022 1:[address] CHEST LUNG CANCER SCREEN LOW DOSE WITHOUT CONTRAST December 20, 2022 12:51 PM HISTORY: Lung cancer screening. No chest CT for lung cancer screening in the last year. 50-80 years. >= 20 pack-year smoking history. Former smoker. Smoking quit date within the last 15 years. Personal history of tobacco use. TECHNIQUE: Scans obtained from the apices through the diaphragm without IV contrast. Low dose CT chest technique was utilized. Radiation dose for this scan was reduced using automated exposure control, adjustment of the mA and/or kV according to patient size, or iterative reconstruction technique. COMPARISON: CT chest 11/16/2019. FINDINGS: Lungs: Severe emphysema. No focal consolidation or pleural effusion. Similar scattered calcified pulmonary nodules. Biapical scarring. Similar right upper lobe nodular opacity measuring 6 mm (6/52). Previously described 4 mm right upper lobe nodular opacity has decreased measuring 2 mm, previously 4 mm. Apparently new small right upper lobe nodule measuring 3 mm (6/#41). Additional findings: ??No pleural or pericardial effusion. Normal caliber thoracic aorta. Mild atherosclerotic disease. Moderate coronary artery calcifications.Normal heart size. Adrenal glands unremarkable. Splenic granuloma. Remaining visualized upper abdomen unremarkable. Similar mild T6 compression deformity. No new aggressive osseous lesion. Small nodular focus within posterior upper thoracic trachea (9 mm; 2/6). Jean Guerin MD IMG CT ORDER SMOOTH * MA Screen Bilateral w/[place] (08/18/2020 9:45 AM CDT) Anatomical Region Laterality Modality Breast Bilateral Mammography Impressions 08/18/2020 11:25 AM CDT IMPRESSION: BI-RADS CATEGORY: 1 - ??Negative RECOMMENDED FOLLOW-UP: Annual Mammography. Exam results letter mailed to patient. JEAN LORENZ MD Narrative 08/18/2020 11:25 AM CDT SCREENING MAMMOGRAM, BILATERAL, DIGITAL w/CAD AND TOMOSYNTHESIS - 08/18/2020 9:45 AM BREAST SYMPTOMS: No current breast complaints. COMPARISON: ??04/11/2018, 06/25/2013. BREAST DENSITY: Heterogeneously dense. COMMENTS: No findings of suspicion for malignancy. Procedure Note Jean Lorenz MD - 08/18/2020 SCREENING MAMMOGRAM, BILATERAL, DIGITAL w/CAD AND TOMOSYNTHESIS - 08/18/2020 9:45 AM BREAST SYMPTOMS: No current breast complaints. COMPARISON: 04/11/2018, 06/25/2013. BREAST DENSITY: Heterogeneously dense. COMMENTS: No findings of suspicion for malignancy. IMPRESSION: BI-RADS CATEGORY: 1 - Negative RECOMMENDED FOLLOW-UP: Annual Mammography. Exam results letter mailed to patient. JEAN LORENZ MD Nilton Medellin PA-C IMG MAMMOGRAPHY ORDERABLES * Lipid panel reflex to direct LDL Fasting (08/05/2020 8:55 AM CDT) Cholesterol 180 <200 mg/dL 08/05/2020 1:07 PM CDT [facility] Triglycerides 85 <150 mg/dL 08/05/2020 1:07 PM CDT [facility] HDL Cholesterol 92 >49 mg/dL 1:10 PM CDT [facility] LDL Cholesterol Calculated 71 <100 mg/dL 08/05/2020 1:10 PM CDT [facility] Comment:Desirable: <100 mg/d l Non HDL Cholesterol 88 <130 mg/dL 08/05/2020 1:10 PM CDT [facility] Blood 08/05/2020 8:55 AM CDT 08/05/2020 8:56 AM CDT Nilton Medellin PA-C LAB - BLOOD ORD ERABLES [facility] [address] [place], [place] [address] [phone] * (ABNORMAL) Basic metabolic panel (08/05/2020 8:55 AM CDT) Sodium 140 133 - 144 mmol/L 08/05/2020 1:00 PM T [facility] Potassium 4.9 3.4 - 5.3 mmol/L 08/05/2020 1:00 PM T [facility] Chloride 109 94 - 109 mmol/L 08/05/2020 1:00 PM T [facility] Carbon Dioxide 29 20 - 32 mmol/L 08/05/2020 1:[address] [facility] Anion Gap 2(L) 3 - 14 mmol/L 08/05/2020 1:[address] [facility] Glucose 107(H) 70 - 99 mg/dL 08/05/2020 1:[address] [facility] Urea Nitrogen 10 7 - 30 mg/dL 08/05/2020 1:[address] [facility] Creatinine 0.61 0.52 - 1.04 mg/dL 08/05/2020 1:[address] [facility] GFR Estimate >90 >60 mL/min/{1. 73_m2} 08/05/2020 1:[address] [facility] Comment: Non GFR Calc Starting 04/22/2018, serum creatinine based estimated GFR (eGFR) will be calculated using the Chronic Kidney Disease Epidemiology Collaboration (CKD-EPI) equation. GFR Estimate If Black >90 >60 mL/min/{1. 73_m2} 08/05/2020 1:[address] [facility] Comment: GFR Calc Starting 04/22/2018, serum creatinine based estimated GFR (eGFR) will be calculated using the Chronic Kidney Disease Epidemiology Collaboration (CKD-EPI) equation. Calcium 9.5 8.5 - 10.1 mg/dL 08/05/2020 1:[address] [facility] 08/05/2020 8:55 AM CDT 08/05/2020 8:56 AM CDT Nilton Medellin PA-C LAB - BLOOD ORD ERABLES [facility] [address] [place], [place] [address], [facility] [phone] * COLONOSCOPY (12/31/2019 9:00 AM CDT) [facility] Signature COLONOSCOPY [facility] [address] [place] [address] [phone] ? Endoscopy Department Patient Name: Dusty Bello ?Procedure Date: 12/31/2019 9:00 AM ? Date of : 1960 ?Admit Type: Outpatient Age: 59 ? Room: Room 2 Gender: Female ?Note Status: Finalized Attending MD: Natasha Conteh MD ? Total Sedation Time: Procedure: ? Colonoscopy Indications: ? Family history of colon cancer in a first-degree ? relative before age 60 years Providers: ? Natasha Conteh MD Referring MD: ?Nilton Medellin Medicines: ? Monitored Anesthesia Care Complications: ? No immediate complications. Procedure: ? After obtaining informed consent, the colonoscope was ? passed under direct vision. Throughout the procedure, ? the patient's blood pressure, pulse, and oxygen ? saturations were monitored continuously. The Colonoscope ? was introduced through the anus and advanced to the ? cecum, identified by appendiceal orifice and ileocecal ? valve. The colonoscopy was performed without difficulty. ? The patient tolerated the procedure well. The quality of ? the bowel preparation was good. ? Findings: ? The perianal and digital rectal examinations were normal. Pertinent ? negatives include normal sphincter tone. ? Two sessile polyps were found in the rectum and cecum. The polyps were 2 ? to 3 mm in size. These polyps were removed with a piecemeal technique ? using a cold biopsy forceps. Resection and retrieval were complete. ? Verification of patient identification for the specimen was done by the ? physician, nurse and communications engineering technician using the patient's name, date and ? medical record number. Estimated blood loss was minimal. ? Non-bleeding external and internal hemorrhoids were found during ? retroflexion. The hemorrhoids were Grade II (internal hemorrhoids that ? prolapse but reduce spontaneously). ? Impression: ?- Two 2 to 3 mm polyps in the rectum and in the cecum, ? removed piecemeal using a cold biopsy forceps. Resected ? and retrieved. ? - Non-bleeding external and internal hemorrhoids. Recommendation: ?- Repeat colonoscopy in 5 years for surveillance. ? - Return to primary care physician PRN. ? Electronically Signed by Dr. Conteh Natasha Conteh MD 12/31/2019 9:35:16 AM I was physically present for the entire viewing portion of the exam.Natasha Conteh MD Number of Addenda: 0 Note Initiated On: 12/31/2019 9:00 AM RADIOLOGY RESULTS 12/31/2019 9:00 AM CDT Nilton Medellin PA-C PROCEDURES RADIOLOGY RESULTS * (ABNORMAL) Fecal colorectal cancer screen (FIT) (06/26/2019 7:00 AM FOREIGN AGENT) Occult Blood Scn FIT Positive(A ) NEG^Negati ve 06/29/2019 11:50 AM FOREIGN AGENT [facility] Stool specimen (specimen) 06/26/2019 7:00 AM FOREIGN AGENT 06/29/2019 10:28 AM FOREIGN AGENT Nilton Medellin PA-C LAB - STOOLS OR DERABLES Performing Organization Address [facility]/ZIP Co de Phone Number [facility] [address] [place] [address] * HPV High Risk Types DNA Cervical (05/29/2019 3:28 PM FOREIGN AGENT) HPV Source SurePath 05/29/2019 3:17 PM FOREIGN AGENT [facility] HPV 16 DNA Negative NEG^Nega tive 06/08/2019 9:24 AM FOREIGN AGENT [facility] HPV 18 DNA Negative NEG^Nega tive 06/08/2019 9:24 AM FOREIGN AGENT [facility] Other HR HPV Negative NEG^Nega tive 06/08/2019 9:24 AM FOREIGN AGENT [facility] Final Diagnosis This patient's sample is negative for HPV DNA. 06/08/2019 9:24 AM FOREIGN AGENT [facility] Comment: This test was developed and its performance characteristics determined by the [facility], Molecular Diagnostics Laboratory. It has not been cleared or approved by the FDA. The laboratory is regulated under CLIA as qualified to perform high-complexity testing. This test is used for clinical purposes. It should not be regarded as investigational or for research. (Note) METHODOLOGY: ??The Sal ajcklyn 4800 system uses automated extraction, simultaneous amplification of HPV (L1 region) and beta-globin, ?? followed by ??real time detection of fluorescent labeled HPV and beta globin using specific oligonucleotide probes . The test specifically identifies types HPV 16 DNA and HPV 18 DNA while concurrently detecting the rest of the high risk types (31, 33, 35, 39, 45, 51, 52, 56, 58, 59, 66 or 68). COMMENTS: ??This test is not intended for use as a screening device for women under age 30 with normal cervical cytology. ??Results should be correlated with cytologic and histologic findings. Close clinical followup is recommended. Specimen Description Cervical Cells 05/29/2019 3:17 PM FOREIGN AGENT [facility] Comment:[id number] Cervical Cells 05/29/2019 3: 28 PM FOREIGN AGENT 2019 8:27 AM FOREIGN AGENT Nilton Medellin PA-C LAB - BLOOD ORD ERABLES [facility] [address] [place] [address] [address] * Pap imaged thin layer screen with HPV - recommended age 30 - 65 years (select HPV order below) (05/29/2019 3:17 PM FOREIGN AGENT) PAP SEBASTIAN Hernández Report Patient Name: DUSTY BELLO MR#: [id number] Specimen #: [id number] Collected: 05/29/2019 Received: 06/02/2019 Reported: 06/04/2019 14:00 Ordering Phy(s): NILTON MEDELLIN For improved result formatting, select 'View Enhanced Report Format' under Linked Documents section. SPECIMEN/STAIN PROCESS: Pap imaged thin layer prep screening (Surepath, FocalPoint with guided screening) ? Pap-Cyto x 1, HPV ordered x 1 SOURCE: Cervical, endocervical Pap imaged thin layer prep screening (Surepath, FocalPoint with guided screening) SPECIMEN ADEQUACY: Satisfactory for evaluation. -Transformation zone component present. CYTOLOGIC INTERPRETATION: Negative for intraepithelial lesion or malignancy Electronically signed out by: DEANGELO Cruz (ASCP) CLINICAL HISTORY: Post Menopausal, Papanicolaou Test Limitations: ??Cervical cytology is a screening test with limited sensitivity; regular screening is critical for cancer prevention; Pap tests are primarily effective for the diagnosis/preventi on of squamous cell carcinoma, not adenocarcinomas or other cancers. COLLECTION SITE: Client: ??[facility] Location: [facility] (P) The technical component of this testing was completed at the [facility], with the professional component performed at the [facility] [employer] [facility], [address] [place] [phone] ([phone]) COPATH Cytologic material (specimen) 05/29/2019 3:17 PM FOREIGN AGENT 06/02/2019 3:05 PM FOREIGN AGENT Nilton Medellin PA-C LAB - OPTIME CL INICAL SPECIMEN Performing Organization Address [facility] Co de Phone Number COPATH * Hepatitis C Screen Reflex to HCV RNA Quant and Genotype (04/22/2019 4:32 PM FOREIGN AGENT) Hepatitis C Antibody Nonreactive NR^Nonre active 04/23/2019 9:09 AM FOREIGN AGENT [facility] Comment: Assay performance characteristics have not been established for newborns, infants, and children Blood specimen (specimen) 04/22/2019 4:32 PM FOREIGN AGENT 04/22/2019 4:33 PM FOREIGN AGENT Nilton Medellin PA-C LAB - BLOOD ORD ERABLES [facility] [address] [place] [address] from Last 3 Months or Most Recently Relevant to Health Maintenance Advance Directives For more information, please contact: [phone] * Full Code (Latest Code Status on File) Date Activated Date Inactivated Comments 07/12/2017 8:57 AM 07/18/2018 6:43 AM * Full Code Date Activated Date Inactivated Comments 07/10/2017 7:49 PM 07/12/2017 8:57 AM Care Teams Social Services Director Relationship Specialty Start Date End Date Mehreen Toussaint NP [facility] [address] [place] [address] PCP - General 03/07/23 [place] [address] [place] [address] Assigned Rheumatology Provider 02/26/20 Nilton Medellin PA-C [address] [facility] [address] [place] [address] Assigned PCP 05/30/23 Farzana Sabillon MD [address] [place], [place] [address] Assigned Endocrinology Provider 08/27/23
--- OUTSIDE RECORDS SUMMARY | 2023-08-30 12:55 | XMS_ITS | Encounter Summary ---
Author Name Unknown Organization [facility] Address [address] [place] [address]. [place] [address] Care Team Providers Care Sheet Rock Layer Name Role Phone Betty Gupta MD Unavailable Mehreen Toussaint NP Primary Care Provider Nilton Roach PA-C Unavailable Encounter Details Date Type Department Care Team (Late st Contact Info) Description 07/16/2023 Telephone [facility] [address] [address] [place] [id number] [place] [id number] Social History Tobacco Use Types Packs/Day Years [...] Sex Assigned at Female 04/23/2018 4:04 PM MASTER WELDER Gender Identity Female 04/23/2018 4:04 PM MASTER WELDER Sexual Orientation Straight 04/23/2018 4: 04 PM MASTER WELDER documented as of this encounter Miscellaneous Notes * Telephone Encounter - Marilyn Tello - 07/23/2023 1:26 PM CDT LVM for PT to call [phone] Gupta appt. * Telephone Encounter - Marilyn Tello - 07/16/2023 10:28 AM CDT discussed moving the Dr Gupta appt to Dr Romeo, as a new pt and in clinic. There are holds on Luci schedule, please use a new and ok to schedule cosme Sanders documented in this encounter Plan of Treatment Upcoming Encounters Date Type Department Care Team (Late st Contact Info) Description 09/13/2023 1:00 PM CDT Office Visit [facility] [address] [phone] Saroj Romeo MD [address] [place], [place] [address] 10/01/2023 2:00 PM CDT Virtual Visit [facility] [address] [facility] [address] [place] [phone] Farzana Sabillon MD [address] [place] [address] [address] [place], [place] [id number] 11/20/2023 11:00 AM CDT Office Visit [facility] [place] [address] [place] [address] Jean Guerin MD [address] [place], [place] [address] documented as of this encounter Visit Diagnoses Not on filedocumented in this encounter Additional Health Concerns Assessment Noted Time PHQ-9 Depression Total Score: 2 09/21/19 7:02 AM CDT documented as of this encounter Care Teams Sheet Rock Layer Relationship Specialty Start Date End Date Mehreen Toussaint NP [address] [address] PCP - General 03/07/23 [place] [address] [address] [place] [address] Assigned Rheumatology Provider 02/26/20 Nilton Roach PA-C [address] [place] [address] Assigned PCP 05/30/23 documented as of this encounter
--- OUTSIDE RECORDS SUMMARY | 2023-08-30 12:55 | XMS_ITS | Referral Summary ---
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 Name Role Phone Betty Gupta MD Unavailable [phone] Mehreen Toussaint NP Primary Care Provider Nilton Medellin PA-C Unavailable [phone] Farzana Sabillon MD Unavailable [phone] Encounters Date Type Department Care Team Description 08/13/2023 MyC Medical Advice [facility] [address] [place] [address] Aranza Morales CMA 08/13/2023 11:30 AM CDT Virtual Visit [facility] [address] [place] [address] Mehreen Toussaint, Farzana Ring MD Age-related osteoporosis without current pathological fracture 08/12/2023 Travel 08/12/2023 11:00 AM CDT Lab [facility] [address] [place] [address] Systemic lupus erythematosus, organ or system involvement unspecified (H); Antiphospholipid syndrome (H24); Encounter for screening for other viral diseases 07/16/2023 Telephone [facility] [address] [place] [address] Betty Gupta MD 07/11/[address] [facility] Lung Science [facility] [address] [phone] Jean Guerin MD Fax 07/01/2023 MyC Medical Advice [facility] Specialty [address] [phone] Betty Gupta MD 06/14/[address] [facility] Lung Science [facility] [address] [phone] Jean Guerin MD 06/13/[address] [facility] Lung Science [address] [phone] Jean Guerin MD 06/10/2023 Travel 06/10/2023 12:30 PM PACK MASTER Office Visit [facility] Pulmonary Function Testing [address] 3rd [place] [phone] Jean Guerin MD Stage 4 very severe COPD by GOLD classification (H) 06/07/2023 Orders Only [facility] Science [facility] [address] [phone] Marcelle Hopson RN Stage 4 very severe COPD by GOLD classification (H) (Primary Dx) 06/06/[address] [facility] Lung Science [facility] [address] [phone] Jean Guerin MD Call To Schedule Appointment 06/06/[address] [facility] Lung Science [address] [phone] Marcelle Hopson RN Stage 4 very severe COPD by GOLD classification (H) (Primary Dx) 06/06/[address] [facility] Lung Science and [address] [phone] Marcelle Hopson RN 06/06/2023 Telephone [facility] Lung Science [address] [address] Jean Guerin MD from Last 3 Months Allergies Active Allergy Reactions Criticality Noted Date [...] Date Resolved Date Influenza B 07/10/2017 01/19/2019 Immunizations Name Administration Dates Next Due COVID-19 Bivalent 18+ (Moderna) 05/02/2022 COVID-19 Monovalent 18+ (Moderna) 01/10/2021,02/2021,07/16/2020 COVID-19 Monovalent Booster 18+ (Moderna) 06/30/2021 Influenza (IIV3) PF 05/12/2012 Influenza Vaccine 18-64 (Flublok) 2020,02/01/2020,05/29/2019,2018 Influenza Vaccine 65+ (Fluzone HD) 02/20/2022 Pneumococcal 20 valent Conju gate (Prevnar 20) 02/20/2022 Pneumococcal 23 valent 05/09/2018,05/12/2012 TDAP Vaccine (Adacel) 07/16/2012 Zoster recombinant adjuvante d (SHINGRIX) 03/10/2021,12/09/2020 Social History Tobacco Use Types Packs/Day Years [...] Sex Assigned at Female 04/23/2018 4:04 PM PACK MASTER Gender Identity Female 04/23/2018 4:04 PM PACK MASTER Sexual Orientation Straight 04/23/2018 4: 04 PM PACK MASTER Last Filed Vital Signs Vital Sign Reading Time Taken Comments Blood Pressure 121/76 05/22/2023 11:13 AM PACK MASTER Pulse 124 05/22/2023 11:13 AM PACK MASTER Temperature 36 ??C (96.8 ??F) 11/27/2022 4:06 PM CDT Respiratory Rate 17 05/22/2023 11:13 AM PACK MASTER Oxygen Saturation 94% 05/22/2023 11:13 AM PACK MASTER 3L Inhaled Oxygen Concentration - - Weight 49 kg (108 lb) 05/22/2023 11:13 AM PACK MASTER Height 152.4 cm (5') 05/22/2023 11:13 AM PACK MASTER Body Mass Index 21.09 05/22/2023 11:13 AM PACK MASTER Plan of Treatment Upcoming Encounters Date Type Department Care Team (Late st Contact Info) Description 09/13/2023 1:00 PM CDT Office Visit [facility] [place] [address] [place] [phone] Saroj Romeo MD [address] [place], [place] [address] 10/01/2023 2:00 PM CDT Virtual Visit [facility] [address] [place] [phone] Farzana Sabillon MD [address] [place] [address] [address] [place], [place] [address] 11/20/2023 11:00 AM CDT Office Visit [facility] [place] [address] [place] [phone] Jean Guerin MD [address] [place] [address] Procedures Procedure Name Priority Date/Time Associated Diagnosis [...] Encounter for screening for other viral diseases [place] PULMONARY STRESS TEST Routine 06/10/2023 2:32 PM PACK MASTER Stage 4 very severe COPD by GOLD classification (H) PFT GENERAL LAB TESTING Routine 06/10/2023 2:03 PM PACK MASTER Stage 4 very severe COPD by GOLD [...] CANCER SCREEN FIT Routine 06/26/2019 7:00 AM PACK MASTER Colon cancer screening HPV HIGH RISK TYPES DNA CERVICAL Routine 05/29/2019 3:28 PM PACK MASTER Screening for malignant neoplasm of cervix PAP IMAGED THIN LAYER SCREEN Routine 05/29/2019 3:17 PM PACK MASTER Screening for malignant neoplasm of cervix HEPATITIS C SCREEN REFLEX TO HCV RNA QUANT AND GENOTYPE Routine 04/22/2019 4:32 PM PACK MASTER Need for hepatitis C screening test from [...] Gupta MD LAB - URINE ORDERABL ES [facility] [address] [facility] (no room number, 1st floor of clinic) [place] [address] [phone] * (ABNORMAL) Routine UA with Micro Reflex to Culture (08/12/2023 10:50 AM CDT) Color Urine Yellow Colorless, Straw, Light Yellow, Yellow 08/12/2023 11:12 AM CDT [facility] Appearance Urine Clear Clear 08/12/19 24 11:12 AM CDT [facility] Glucose Urine Negative Negative mg/dL 08/12/2023 11:12 AM CDT [facility] Bilirubin Urine Negative Negative 11:12 AM CDT [facility] Ketones Urine Negative Negative mg/dL 08/12/2023 11:12 AM CDT [facility] Specific [place] Urine 1.020 1.003 - 1.035 08/12/2023 11:12 AM CDT [facility] Blood Urine Trace(A) Negative 08/12/2023 11:12 AM CDT [facility] pH Urine 5.5 5.0 - 7.0 08/12/2023 11:12 AM CDT [facility] Protein Albumin Urine Negative Negative mg/dL 08/12/2023 11:12 AM CDT [facility] Urobilinogen Urine 0.2 0.2, 1.0 E.U./dL 08/12/2023 11:12 AM CDT [facility] Nitrite Urine Negative Negative 08/12/2023 11:12 AM CDT [facility] Leukocyte Esterase Urine Negative Negative 08/12/2023 11:12 AM CDT [facility] Urine URINE SPECIMEN OBTAINED BY CLEAN CATCH PROCEDURE / Unknown Non-blood Collection / Unknown 08/12/2023 10:50 AM CDT 08/12/2023 11:01 AM CDT Betty Gupta MD LAB - URINE ORDERABL ES [facility] [address] [facility] (no room number, 1st floor of [facility] [place] [address], [facility] [phone] * Protein random urine (08/12/2023 10:50 AM [...] LAB - URINE ORDERABL ES [facility] [address] [facility], [address] [place] [address], [facility] * Erythrocyte sedimentation rate auto (08/12/2023 10:50 AM CDT) Erythrocyte Sedimentation Rate 22 0 - 30 mm/hr 08/12/2023 11:04 AM CDT [facility] Blood BLOOD SPECIMEN / Unknown Venipuncture / Unknown 08/12/2023 10:50 AM CDT 08/12/2023 10:50 AM CDT Betty Gupta MD LAB - BLOOD ORDERABL ES LAB[facility]ATORY [facility] [address] [facility] (no room number, 1st floor of clinic) [place] [address], [facility] [phone] * DNA ANTIBODY, NATV/2 STRAND (08/12/2023 10:50 [...] LAB - BLOOD ORDERABL ES SPECIALTY CORE/PROT/ENDO Specialty Core/Prot/Endo [address] [facility] [address], [address] * CRP inflammation (08/12/2023 10:50 AM CDT) CRP Inflammation <3.00 <5.00 mg/L 08/13/19 12:19 AM CDT [facility] Blood BLOOD SPECIMEN / Unknown Venipuncture / Unknown 08/12/2023 10:50 AM CDT 08/12/2023 10:50 AM CDT Betty Gupta MD LAB - BLOOD ORDERABL ES [facility]ATORY [facility] [address] [facility] [address], [address] [id number] * Creatinine (08/12/2023 10:50 AM CDT) Creatinine 0.65 0.51 - 0.95 mg/dL 08/13/2023 12:19 AM CDT [facility] GFR Estimate >90 >60 mL/min/1.73 m2 08/13/2023 12:19 AM CDT [facility] Blood BLOOD SPECIMEN / Unknown Venipuncture / Unknown 08/12/2023 10:50 AM CDT 08/12/2023 10:50 AM CDT Betty Gupta MD LAB - BLOOD ORDERABL ES U LAB[facility]ATORY [facility] [address] [facility], [address] * Complement C4 (08/12/2023 10:50 AM CDT) C4 Complement 21 13 - 39 mg/dL 08/13/2023 1:49 PM CDT SPECIALTY CORE/PROT/ENDO Blood BLOOD SPECIMEN / Unknown Venipuncture / Unknown 08/12/2023 10:50 AM CDT 08/12/2023 10:50 AM CDT Betty Gupta MD LAB - BLOOD ORDERABL ES SPECIALTY CORE/PROT/ENDO Specialty Core/Prot/Endo [address] [facility] Building, [address] * Complement C3 (08/12/2023 10:50 AM CDT) C3 Complement 138 81 - 157 mg/dL 08/13/2023 1:49 PM CDT SPECIALTY CORE/PROT/ENDO Blood BLOOD SPECIMEN / Unknown Venipuncture / Unknown 08/12/2023 10:50 AM CDT 08/12/2023 10:50 AM CDT Betty Gupta MD LAB - BLOOD ORDERABL ES UM SPECIALTY CORE/PROT/ENDO Specialty Core/Prot/Endo [address] [facility] Building, [address] * AST (08/12/2023 10:50 AM CDT) AST 16 0 - 45 U/L 08/13/2023 12:19 AM CDT [facility] Blood BLOOD SPECIMEN / Unknown Venipuncture / Unknown 08/12/2023 10:50 AM CDT 08/12/2023 10:50 AM CDT Betty Gupta MD LAB - BLOOD ORDERABL ES U LABORATORY [facility] [address] [facility], [address] [id number] * ALT (08/12/2023 10:50 AM CDT) ALT 19 0 - 50 U/L 08/13/2023 12:19 AM CDT [facility] Blood BLOOD SPECIMEN / Unknown Venipuncture / Unknown 08/12/2023 10:50 AM CDT 08/12/2023 10:50 AM CDT Betty Gupta MD LAB - BLOOD ORDERABL ES Performing Organization Address City/[facility]/ZIP Co de Phone Number U LABORATORY [facility] [address] [facility], [address] [address] * Albumin level (08/12/2023 10:50 AM CDT) Albumin 4.4 3.5 - 5.2 g/dL 08/13/2023 12:19 AM CDT [facility] Blood BLOOD SPECIMEN / Unknown Venipuncture / Unknown 08/12/2023 10:50 AM CDT 08/12/2023 10:50 AM CDT Betty Gupta MD LAB - BLOOD ORDERABL ES U[facility]ATORY [facility] [address] [facility], [address] [place] [address], [facility] * CBC with platelets (08/12/2023 10:50 AM CDT) WBC Count 6.9 4.0 - 11.0 10e3/uL [...] Gupta MD LAB - BLOOD ORDERABL ES [facility] [address] [facility] (no room number, 1st floor of clinic) [place] [address], [facility] [phone] * General PFT Lab (Please always keep checked) (06/10/2023 2:03 PM PACK MASTER) FIO2-Pre 28.00 % BREEZE PFT 06/10/2023 2:03 PM PACK MASTER Narrative LUIS PFT - 06/13/2023 6:45 PM PACK MASTER IMPRESSION: Hypoxemia with ambulation on room air. Six minute walk distance is reduced indicating a decrease in exercise tolerance. There is significant oxygen desaturation, without hypoxemia, during the six- minute walk done on supplemental oxygen at 2 L/m. Christine Razo MD ?This interpretation has been electronically signed: ??CHRISTINE RAZO 06/13/2023 ??06:28:31 PM? Jean Guerin MD PFT ORDERABL ES LUIS PFT * 6 minute walk test [...] 180 <200 mg/dL 08/05/2020 1:[address] [facility] Triglycerides 85 <150 mg/dL 08/05/2020 1:[address] [facility] HDL Cholesterol 92 >49 mg/dL 1:[address] [facility] LDL Cholesterol Calculated 71 <100 mg/dL 08/05/2020 1:[address] [facility] Comment:Desirable: <100 mg/d l Non HDL Cholesterol 88 <130 mg/dL 08/05/2020 1:[address] [facility] Blood 08/05/2020 8:55 AM CDT 08/05/2020 8:56 AM CDT Nilton Medellin PA-C LAB - BLOOD ORD ERABLES [facility] [address] [place] [address], [facility] [phone] * (ABNORMAL) Basic metabolic panel (08/05/2020 8:55 AM CDT) Sodium 140 133 - 144 mmol/L 08/05/2020 1:[address] [facility] Potassium 4.9 3.4 - 5.3 mmol/L 08/05/2020 1:[address] [facility] Chloride 109 94 - 109 mmol/L 08/05/2020 1:[address] [facility] Carbon Dioxide 29 20 - 32 mmol/L 08/05/2020 1:[address] [facility] Anion Gap 2(L) 3 - 14 mmol/L 08/05/2020 1:[address] [facility] Glucose 107(H) 70 - 99 mg/dL 08/05/2020 1:[address] [facility] Urea Nitrogen 10 7 - 30 mg/dL 08/05/2020 1:[address] [facility] Creatinine 0.61 0.52 - 1.04 mg/dL 08/05/2020 1:[address] [facility] GFR Estimate >90 >60 mL/min/{1. 73_m2} 08/05/2020 1:[address] [facility] Comment: Non GFR Calc Starting 04/22/2018, serum creatinine based estimated GFR (eGFR) will be calculated using the Chronic Kidney Disease Epidemiology Collaboration (CKD-EPI) equation. GFR Estimate If Black >90 >60 mL/min/{1. 73_m2} 08/05/2020 1:[address] [facility] Comment: GFR Calc Starting 04/22/2018, serum creatinine based estimated GFR (eGFR) will be calculated using the Chronic Kidney Disease Epidemiology Collaboration (CKD-EPI) equation. Calcium 9.5 8.5 - 10.1 mg/dL 08/05/2020 1:[address] [facility] 08/05/2020 8:55 AM CDT 08/05/2020 8:56 AM CDT Nilton Medellin PA-C LAB - BLOOD ORD ERABLES [address] [place] [address], [facility] [phone] * COLONOSCOPY (12/31/2019 9:00 AM CDT) COLONOSCOPY [address] [place] [address] [phone] ? Endoscopy Department Patient Name: Dusty Bello [...] done by the ? physician, nurse and facilities technician using the patient's name, date and [...] colorectal cancer screen (FIT) (06/26/2019 7:00 AM PACK MASTER) Occult Blood Scn FIT Positive(A ) NEG^Negati ve 06/29/2019 11:50 AM PACK MASTER [facility] Stool specimen (specimen) 06/26/2019 7:00 AM PACK MASTER 06/29/2019 10:28 AM PACK MASTER Nilton Medellin PA-C LAB - STOOLS OR DERABLES [facility] [address] [place] [address] * HPV High Risk Types DNA Cervical (05/29/2019 3:28 PM PACK MASTER) Pathologist [facility] HPV Source [facility] 05/29/2019 3:17 PM PACK MASTER [facility] HPV 16 DNA Negative NEG^Nega tive 06/08/2019 9:24 AM PACK MASTER [facility] HPV 18 DNA Negative NEG^Nega tive 06/08/2019 9:24 AM PACK MASTER [facility] Other HR HPV Negative NEG^Nega tive 06/08/2019 9:24 AM PACK MASTER [facility] Final Diagnosis This patient's sample is negative for HPV DNA. 06/08/2019 9:24 AM PACK MASTER [facility] Comment: This test was developed and its performance characteristics determined by the [facility], Molecular Diagnostics Laboratory. It has not been cleared or approved by the FDA. The laboratory is regulated under CLIA as qualified to perform high-complexity testing. This test is used for clinical purposes. It should not be regarded as investigational or for research. (Note) METHODOLOGY: ??The Sal jacklyn 4800 system uses automated extraction, simultaneous amplification [...] Specimen Description Cervical Cells 05/29/2019 3:17 PM PACK MASTER [facility] Comment:[id number] Cervical Cells 05/29/2019 3: 28 PM PACK MASTER 2019 8:27 AM PACK MASTER Nilton Medellin PA-C LAB - BLOOD ORD ERABLES [facility] [address] [place] [address] [address] * Pap imaged thin layer screen with HPV - recommended age 30 - 65 years (select HPV order below) (05/29/2019 3:17 PM PACK MASTER) PAP SEBASTIAN Hernández Report Patient Name: DUSTY BELLO MR#: [id number] Specimen #: [id number] Collected: 05/29/2019 Received: 06/02/2019 Reported: 06/04/2019 14:00 [...] or other cancers. COLLECTION SITE: Client: ??[facility] Location: ERFP (P) The technical component of this testing [facility] with the professional component performed at the [facility], [address] [place] [address] ([phone]) COPATH Cytologic material (specimen) 05/29/2019 3:17 PM PACK MASTER 06/02/2019 3:05 PM PACK MASTER Nilton Medellin PA-C LAB - OPTIME CL INICAL SPECIMEN COPATH * Hepatitis C Screen Reflex to HCV RNA Quant and Genotype (04/22/2019 4:32 PM PACK MASTER) Hepatitis C Antibody Nonreactive NR^Nonre active 04/23/2019 9:09 AM PACK MASTER [facility] Comment: Assay performance characteristics have not been established for newborns, infants, and children Blood specimen (specimen) 04/22/2019 4:32 PM PACK MASTER 04/22/2019 4:33 PM PACK MASTER Nilton Medellin PA-C LAB - BLOOD ORD ERABLES [facility] [address] [place] [address] from Last 3 Months or Most Recently Relevant to Health Maintenance Advance Directives For more information, please contact: [phone] * Full Code (Latest Code Status on File) Date Activated Date Inactivated Comments 07/12/2017 8:57 AM 07/18/2018 6:43 AM * Full Code Date Activated Date Inactivated Comments 07/10/2017 7:49 PM 07/12/2017 8:57 AM Care Teams Ball Fringe Machine Operator Relationship Specialty Start Date End Date Mehreen Toussaint NP [address] [address] PCP - General 03/07/23 [place] [address] [place] [address] Assigned Rheumatology Provider 02/26/20 Nilton Medellin PA-C [address] [facility] [address] [place] [address] Assigned PCP 05/30/23 Farzana Sabillon MD [address] [facility] [address] [place] [address] Assigned Endocrinology Provider 08/27/23
--- OUTSIDE RECORDS SUMMARY | 2023-08-30 12:55 | XMS_ITS | Encounter Summary ---
Author Name Unknown Organization [facility] Address [address] [place] [address] Care Team Providers Care Cigar Machine Feeder Name Role Phone Betty Gupta MD Unavailable [phone] Mehreen Toussaint NP Primary Care Provider Nilton Roach PA-C Unavailable Reason for Visit * Reason Comments Consult * Consultation (Routine) - Pending Review Specialty Diagnoses / Procedures Referred By Contsapphire t Referred To Contact Endocrinology, Diabetes, and Metabolism Diagnoses Age-related osteoporosis without current pathological fracture Mehreen Toussaint NP [address] [address] Referral ID Status Reason Start Date Expiration Date V isits Requested Visits Authorized [id number] Pending Review 04/11/2023 04/10/2024 1 1 Encounter Details Date Type Department Care Team (Late st Contact Info) Description 08/13/2023 11:30 AM CDT [facility] [address] [facility] [address] [place] [address] Mehreen Toussaint NP [address] [address] Farzaan Sabillon MD [address] [place], [place] [address] Age-related osteoporosis without current pathological fracture Social History Tobacco Use Types Packs/Day Years [...] Sex Assigned at Female 04/23/2018 4:04 PM NUT PICKER Gender Identity Female 04/23/2018 4:04 PM NUT PICKER Sexual Orientation Straight 04/23/2018 4: 04 PM NUT PICKER documented as of this encounter Patient Instructions * Patient Instructions* Farzana Sabillon MD - 08/13/2023 11:30 AM CDT Images from the original note were not included. [facility] Dr Sabillon, Endocrinology Department [address] [place] [address] Appointment [phone] [place]: Saturday - Labs needed. Follow up in few weeks after that to discuss labs and medication options for osteoporosis. The pt was advised to Maintain an adequate calcium and vitamin D intake and to supplement vitamin D if needed to maintainserum levels of 25 hydroxy D (25 OH D) between 30-60 ng/ml. Limit alcohol intake to no more than 2 servings per day. Limit caffeine intake. Maintain an active lifestyle including weight-bearing exercises for at least 30 mins daily. Take measures to reduce the risk of falling. You should get 1000- 1200 mg/day calcium in divided doses of no more than 500 mg/dose. This INCLUDES what is in your food as well as what is in any supplements you may be taking. Vit D about 800-1000 IU/day ( unless you have vit D deficiency- in that case higher dose) Dietary sources of calcium:: These also contain vitamin D Milk 8 oz 300 mg calcium Yogurt 1 cup 400 mg calcium Hard cheese 1.5 oz 300 mg Cottage cheese 2 cup 300 mg [place] juice with Calcium 8 oz 300 mg Low fat dairy sources are recommended You should get 30 minutes of moderate weight bearing exercise on most days of the week . Weight bearing exercise includes such things as walking, jogging, hiking, dancing. You should also get Strength training 2 or more times/week in addition to other weight -being exercise. Strength training uses weight or resistance beyond that seen in everyday activities -(pilates, weight training with free weights, weight machines or resistance bands) Living with Osteoporosis: Preventing Fractures If you have osteoporosis, you can do a lot to reduce its effect on your life. Knowing how to prevent fractures and spinal curvature can help you live more comfortably and safely with this disease. Reducing your risk for fractures The most common fracture sites in people with osteoporosis are the wrist, spine, and hip. These fractures are often caused by accidents and falls. All fractures are painful and may limit what you abdulaziz. But hip fractures are very serious. They often need surgery, and it can take months to recover.To reduce your risk for fractures: Get regular exercise. Try walking, swimming, or weight training. Eat foods that are rich in calcium, or take calcium supplements. Make your home safe to help avoid accidents. Take extra precautions not to fall in risky areas, such as icy sidewalks. Understanding spinal fractures Your spine is made up of many bones called vertebrae. Osteoporosis can cause the vertebrae in your spine to collapse. As a result, your upper back may arch forward, creating a curvature. Spine fractures may also result from back strain and bad posture. You will also lose height. Your lower spine must then adjust to keep your body balanced. This can cause back pain. To prevent or lessen these spinal changes: Practice good posture. Use proper techniques if you need to lift heavy objects. Do back exercises to help your posture. Lie on your back when you have pain. Ask your healthcare provider about these and other ways to help your spine. [employer] last reviewed this educational content on 09/03/2017 ?? [id number] [employer]. All rights reserved. This information is not intended as a substitute for professional medical care. Always follow your healthcare professional's instructions. Living with Osteoporosis: Regular Exercise If you have osteoporosis, exercise is vital for your health. It can prevent bone fractures and spine changes. It will slow bone loss. Exercise will strengthen your body. It can also be fun. A varietyof exercises is best. See below for exercises that can help you. But before you start, talk with your healthcare provider to be sure these exercises are right for you. Resistance exercises. These build muscle strength and maintain bone mass. They also make you less prone to injury. Exercises include lifting small weights, doing push-ups and sit-ups, using elastic exercise bands, and using weight machines. Weight-bearing activities. These help your whole body. They also help you maintain bone mass. Activities include walking, dancing, and housework. Ofc-yvbjxw-hkkdvgy exercises. These help prevent back strain and pain. They do this by building thetrunk and leg muscles. Exercises that help with flexibility can prevent falls. Examples include swimming, water exercise, and stretching. Staying safe Here are tips to stay safe: Always check with your healthcare provider before starting any new exercise program. Use weights only as instructed. Stop any exercise that causes pain. [employer] last reviewed this educational content on 09/03/2017 ?? 1892-2031 [employer]. All rights reserved. This information is not intended as a substitute for professional medical care. Always follow your healthcare professional's instructions. Preventing Osteoporosis: Avoiding Bone Loss Certain factors can speed up bone loss or decrease bone growth. For example, alcohol, cigarettes, and certain medicines reduce bone mass. Some foods make it hard for your body to absorb calcium. Things to avoid Here are things to avoid to help prevent osteoporosis: Alcohol. This is toxic to bones. It is a major cause of bone loss. Heavy drinking can cause osteoporosis even if you have no other risk factors. Smoking. This reduces bone mass. Smoking may also interfere with estrogen levels and cause early menopause. Inactivity. Not being active makes your bones lose strength and become thinner. Over time, thin bones may break. Women who aren't active are at a high risk for osteoporosis. Certain medicines. Some medicines, such as cortisone, increase bone loss. They also decrease bone growth. Ask your healthcare provider about any side effects of your medicines, and how to prevent them. Protein-rich or salty foods. Eaten in large amounts, these foods may deplete calcium. Caffeine. This increases calcium loss. People who drink a lot of coffee, tea, or soda lose more calcium than those who don't. [employer] last reviewed this educational content on 09/03/2017 ?? [phone] [employer]. All rights reserved. This information is not intended as a substitute for professional medical care. Always follow your healthcare professional's instructions. Preventing Osteoporosis: Meeting Your Calcium Needs Your body needs calcium to build and repair bones. But it can't make calcium on its own. That's whyit's important to eat calcium-rich foods. Some foods are naturally rich in calcium. Others have calcium added (fortified). It's best to get calcium from the foods you eat. But if you can't get enough, you may want to take calcium supplements. To meet your daily calcium needs, try the foods listed below. Dairy Fish & beans Other sources Source Calcium (mg) per serving Source Calcium (mg) per serving Source Calcium (mg) per serving Low-fat yogurt, plain 415 mg/8 oz. Sardines, [place], canned, with bones 351 mg/3 oz. Oatmeal, instant, fortified 215 mg/1 cup Nonfat milk 302 mg/1 cup [place], sockeye, canned, with bones 239 mg/3 oz. Tofu made with calcium sulfate 204 mg/3 oz. Low-fat milk 297 mg/1 cup Soybeans, fresh, boiled 131 mg/1/2 cup Collards 179 mg/1/2 cup Hungarian cheese 272 mg/1 oz. White beans, cooked 81 mg/1/2 cup Hungarian muffin, whole wheat 175 mg/1 muffin Cheddar cheese 205 mg/1 oz. [place] beans, cooked 79 mg/1/2 cup Kale 90 mg/1/2 cup Ice cream strawberry 79 mg/1/2 cup [place], navel 56 mg/1 medium Note: Calcium levels may vary depending on brand and size. Daily calcium needs 14 to 18 years old: 1,300 mg 19 to 30 years old: 1,000 mg 31 to 50 years old: 1,000 mg 51 to 70 years old, women: 1,200 mg 51 to 70 years old, men: 1,000 mg or nursin to 18 years old: 1,300 mg, 19 to 50 years old: 1,000 mg Older than 70 (women and men): 1,200 mg Kimberlyn last reviewed this educational content on 09/03/2017 ?? [id number] [employer]. All rights reserved. This information is not intended as a substitute for professional medical care. Always follow your healthcare professional's instructions. documented in this encounter Progress Notes * Farzana Sabillon MD - 08/13/2023 11:30 AM CDT Images from the original note were not included. THIS IS A VIDEO VISIT: Phone call visit/virtual visit encounter: Name of patient: Keila Bello Date of encounter: 08/13/2023 Time of start of video visit: 11:27 Video started: 11:39 Video ended: 11:56 Provider location: working from home/ [facility] Patient location: patients home. Mode of transmission: [employer] video/ [employer] Verbal consent: obtained before starting visit. Pt is agreeable. The patient has been notified of following: This VIDEO visit will be conducted via a call between you and your physician/provider. We have found that certain health care needs can be provided without the need for a physical exam. This servicelets us provide the care you need with a short phone conversation. If a prescription is necessary we can send it directly to your pharmacy. If lab work is needed we can place an order for that and you can then stop by our lab to have the test done at a later time. With new updates with brennan virus patient might be billed as clinic visit. If during the course of the call the physician/provider feels a telephone visit is not appropriate,you will not be charged for this service. Past medical history, social history, family history, allergy and medications were reviewed and updated as appropriate. Reviewed pertinent labs, notes, imaging studies personally. Name: Keila Bello Date: 08/13/2023 Seen in consultation with Mehreen Toussaint NP for osteoporosis. HPI: Keila Bello is a 63 year old female who presents for the evaluation of osteoporosis. has a past medical history of Chronic low back pain, COPD (chronic obstructive pulmonary disease) (H), DVT (deep venous thrombosis) (H), Joint pain, and SLE (systemic lupus erythematosus related syndrome) (H). She is on Belimumab. Ho lupus, asthma. New diagnosis with DEXA 2018: IMPRESSION: Osteoporosis with high fracture risk. DEXA 04/2023( done at [facility]): Osteoporosis with lowest T score -3.8 at hip No comparison done. Mild T6 compression deformity noted on CT chest 12/2022. She does not recall any major trauma. GERD: No Dental health: OK. No major upcoming dental procedure. Kidney function: within normal limits. Previous treatment for osteopenia/osteoporosis: fosamax ( took it X 3 years ([id number]) and stoppedit 2 years back in 2020). she was having swallowing problem and GERD. Current treatment for Osteopenia/Osteoporosis: none Smoke:Yes: former smoker Family History:No Menstrual history/Birthing: s/p menopause HRT after menopause: No Fractures:Yes: shoulder fracture ( treated nonsurgically). 12/2022 CT showing verterbal fracture ?--Mild T6 compression deformity. Kidney stones: No GI Surgery:No Duration of therapy: as noted above Exercise:limited. She has herniated disc. Diet: 5-6 servings of dairy/day Ca/Vitamin D: No calcium supplements. Takes vit D supplement but not sure about the dose. Alcohol: social Eating Disorder: No Steroid Use: + inhalers. On prednisone on and off. PMH/PSH: Past Medical History: Diagnosis Date Chronic low back pain COPD (chronic obstructive pulmonary disease) (H) DVT (deep venous thrombosis) (H) Joint pain SLE (systemic lupus erythematosus related syndrome) (H) Past Surgical History: Procedure Laterality Date COLONOSCOPY N/A 12/31/2019 Procedure: Colonoscopy with polypectomy; Surgeon: Natasha Conteh MD; Location: [facility] XR SHOULDER SURGERY ZAIRA RIGHT XR WRIST SURGERY ZAIRA RIGHT Family Hx: Family History Problem Relation Age of Onset Diabetes Mother Heart Failure Mother Leukemia Mother Coronary Artery Disease Brother Kidney Disease Father Diabetes Type 2 Father Social Hx: Social History Socioeconomic History Marital status: Spouse name: Not on file Number of children: Not on file Years of education: Not on file Highest education level: Not on file Occupational History Not on file Tobacco Use Smoking status: Former Packs/day: 1.00 Years: 40.00 Additional pack years: 0.00 Total pack years: 40.00 Types: Cigarettes Quit date: 06/06/2019 Years since quittin.1 Smokeless tobacco: Never Tobacco comments: Occasional Vaping Use Vaping Use: Never used Substance and Sexual Activity Alcohol use: No Drug use: No Sexual activity: Yes Partners: Male Other Topics Concern Parent/sibling w/ CABG, [place] or angioplasty before 65F 55M? Not Asked Social History Narrative Not on file Social Determinants of Health Financial Resource Strain: Not on file Food Insecurity: Not on file Transportation Needs: Not on file Physical Activity: Not on file Stress: Not on file Social Connections: Not on file Interpersonal Safety: Not on file Housing Stability: Not on file MEDICATIONS: has a current medication list which includes the following prescription(s): albuterol, albuterol, albuterol, azithromycin, belimumab, budesonide-formoterol, calcium citrate-vitamin d, diphenhydramine, ipratropium - albuterol 0.5 mg/2.5 mg/3 ml, mucinex, rivaroxaban anticoagulant, spiriva handihaler, tiotropium, tizanidine, tizanidine, triamcinolone, UNABLE TO FIND, breztri aerosphere, and budesonide-formoterol. ROS ROS: 10 point ROS neg other than the symptoms noted above in the HPI. Physical Exam VS: There were no vitals taken for this visit. GENERAL: healthy, alert and no distress EYES: Eyes grossly normal to inspection, conjunctivae and sclerae normal ENT: no nose swelling, nasal discharge. Thyroid: no apparent thyroid nodules RESP: no audible wheeze, cough, or visible cyanosis. No visible retractions or increased work of breathing. Able to speak fully in complete sentences. ABDO: not evaluated. EXTREMITIES: no hand tremors. NEURO: Cranial nerves grossly intact, mentation intact and speech normal SKIN: No apparent skin lesions, rash or edema seen PSYCH: mentation appears normal, affect normal/bright, judgement and insight intact, normal speech and appearance well-groomed LABS: Calcium: Creatinine: Creatinine Date Value Ref Range Status 08/12/2023 0.65 0.51 - 0.95 mg/dL Final 08/05/2020 0.61 0.52 - 1.04 mg/dL Final TFTs: Lab Results Component Value Date TSH 0.43 12/20/2022 TSH 1.07 04/22/2019 PTH: Vitamin D: Vitamin D Deficiency Screening Results: No results found for: VITDT DEXA 04/2023: All pertinent notes, labs, and images personally reviewed by me. A/P Keila Bello is a 63 year old here for the evaluation of: Age-related osteoporosis: Comment: h/o vertebral fractures? DEXA 04/2023( done at [facility]): Osteoporosis with lowest T score -3.8 at hip No comparison done. Mild T6 compression deformity noted on CT chest 12/2022. She does not recall any major trauma. Plan: Discussed diagnosis, pathophysiology, management and treatment options of condition with pt. Labs needed. Follow up in few weeks after that to discuss labs and medication options for osteoporosis. Consider IV options in the setting of GI s/e on oral bisphosphonate. Plan: Vitamin D Deficiency, Calcium, Parathyroid Hormone Intact Risk factors for low bone density include personal history of fracture or family history, , advanced age, female, dementia, and poor health. Also smoking, low BMI, Estrogen deficiency, low Ca intake, and alcoholism. A prior history of vertebral fracture greatly increases the risk of subsequent fractures. A history of other medical diseases impacting on bone may also affect bone health. The pt was advised to Maintain an adequate calcium and vitamin D intake and to supplement vitamin D if needed to maintainserum levels of 25 hydroxy D (25 OH D) between 30-60 ng/ml. Limit alcohol intake to no more than 2 servings per day. Limit caffeine intake. Maintain an active lifestyle including weight-bearing exercises for at least 30 mins daily. Take measures to reduce the risk of falling. Discussed indications, risks and benefits of all medications prescribed, and answered questions to patient's satisfaction. The longitudinal plan of care for the diagnosis(es)/condition(s) as documented were addressed during this visit. Due to the added complexity in care, I will continue to support Keila in the subsequentmanagement and with ongoing continuity of care. All questions were answered. The patient indicates understanding of the above issues and agrees with the plan set forth. Follow-up: As noted in AVS Farzana Sabillon MD Endocrinology [facility] CC: Mehreen Tuossaint documented in this encounter Nursing Notes * GarfieldGabriellaby - 08/13/2023 11:30 AM CDT Is the patient currently in the state of [place]? YES Visit mode:VIDEO If the visit is dropped, the patient can be reconnected by: VIDEO VISIT: Text to cell phone: Telephone Information: Will anyone else be joining the visit? NO (If patient encounters technical issues they should call [phone] :[phone]) How would you like to obtain your AVS? MyChart Are changes needed to the allergy or medication list? No Are refills needed on medications prescribed by this physician? Reason for visit: Consult Lisset Merrill VVF documented in this encounter Plan of Treatment Upcoming Encounters Date Type Department Care Team (Late st Contact Info) Description 09/13/2023 1:00 PM CDT Office Visit [facility] [address] [place] [phone] Saroj Romeo MD [address] [place], [place] [address] 10/01/2023 2:00 PM CDT Virtual Visit [facility] [address] [facility] [address] [place] [phone] Farzana Sabillon MD [address] [id number] 11/20/2023 11:00 AM CDT Office Visit [facility] [address] [phone] Jean Guerin MD [address] [place] [address] Scheduled Orders Name Type Priority Associated Diagnoses Orde r Schedule Vitamin D Deficiency Lab Routine Age-related osteoporosis without current pathological fracture Expected: 08/14/2023, Expires: 08/12/2024 Calcium Lab Routine Age-related osteoporosis without current pathological fracture Expected: 08/14/2023, Expires: 08/12/2024 Parathyroid Hormone Intact Lab Routine Age-related osteoporosis without current pathological fracture Expected: 08/14/2023, Expires: 08/12/2024 documented as of this encounter Visit Diagnoses Diagnosis Age-related osteoporosis without current pathological fracture Senile osteoporosis documented in this encounter Additional Health Concerns Assessment Noted Time PHQ-9 Depression Total Score: 2 09/21/19 20 7:02 AM CDT documented as of this encounter Care Teams Cigar Machine Feeder Relationship Specialty Start Date End Date Mehreen Toussaint NP [address] [address] PCP - General 03/07/23 [place] [address] [place] [address] Assigned Rheumatology Provider 02/26/20 Nilton Roach PA-C [address] [place] [address] Assigned PCP 05/30/23 documented as of this encounter
--- OUTSIDE RECORDS SUMMARY | 2023-08-30 12:55 | XMS_ITS | Encounter Summary ---
Author Name Unknown Organization [facility] Address [address] [place] [address]. [place] [address] Care Team Providers Care Building Consultant Name Role Phone Betty Gupta MD Unavailable [phone] Mehreen Toussaint NP Primary Care Provider Nilton Roach PA-C Unavailable [phone] Encounter Details Date Type Department Care Team (Latest Contact Info) Description 08/12/2023 Travel Social History Tobacco Use Types Packs/Day Years [...] Sex Assigned at Female 04/23/2018 4:04 PM INDUSTRIAL RECRUITER Gender Identity Female 04/23/2018 4:04 PM INDUSTRIAL RECRUITER Sexual Orientation Straight 04/23/2018 4: 04 PM INDUSTRIAL RECRUITER documented as of this encounter Plan of Treatment Upcoming Encounters Date Type Department Care Team (Late st Contact Info) Description 09/13/2023 1:00 PM CDT Office Visit [facility] [address] [phone] Saroj Romeo MD [address] [place] [phone] 10/01/2023 2:00 PM CDT Virtual Visit [facility] [address] [place] [phone] Farzana Sabillon MD [address] [place] [address] 11/20/2023 11:00 AM CDT Office Visit [facility] [address] [phone] Jean Guerin MD [address] [facility] [place] [id number] documented as of this encounter Visit Diagnoses Not on filedocumented in this encounter Additional Health Concerns Assessment Noted Time PHQ-9 Depression Total Score: 2 09/21/19 20 7:02 AM CDT documented as of this encounter Care Teams Building Consultant Relationship Specialty Start Date End Date Mehreen Toussaint NP [address] [address] PCP - General 03/07/23 [place] [address] [place] [address] Assigned Rheumatology Provider 02/26/20 Nilton Roach PA-C [address] [facility] [address] [place], [place] [address] Assigned PCP 05/30/23 documented as of this encounter
--- OUTSIDE RECORDS SUMMARY | 2023-08-30 12:55 | XMS_ITS | Encounter Summary ---
Author Name Unknown Organization [place] Address [address] [place] [address] Care Team Providers Care Water Quality Assistant Name Role Phone Betty Gupta MD Unavailable [phone] Mehreen Tousasint NP Primary Care Provider Nilton Roach PA-C Unavailable [phone] Encounter Details Date Type Department Care Team (Late st Contact Info) Description 08/12/2023 11:00 AM CDT Lab [facility] [address] [place] [phone] Systemic lupus erythematosus, organ or system involvement unspecified (H); Antiphospholipid syndrome (H24); Encounter for screening for other viral diseases Social History Tobacco Use Types Packs/Day Years [...] Sex Assigned at Female 04/23/2018 4:04 PM MUD GRINDER Gender Identity Female 04/23/2018 4:04 PM MUD GRINDER Sexual Orientation Straight 04/23/2018 4: 04 PM MUD GRINDER documented as of this encounter Miscellaneous Notes * Result Encounter Note - Betty Gupta MD - 08/12/2023 11:00 AM CDT Normal monitoring labs - normal liver, kidney tests and cell counts. Urine analysis did not show any protein loss. Betty Gupta MD 08/14/2023 9:53 AM documented in this encounter Plan of Treatment Upcoming Encounters Date Type Department Care Team (Late st Contact Info) Description 09/13/2023 1:00 PM CDT Office Visit [facility] [address] [facility] [address] [place] [address] Saroj Romeo MD [address] [place], [place] [address] 10/01/2023 2:00 PM CDT Virtual Visit [facility] [address] [facility] [address] [place] [phone] Farzana Sabillon MD [address] 200 [place], [place] [address] 11/20/2023 11:00 AM CDT Office Visit [facility] [place] [address] [place] [phone] Jean Guerin MD [address] [place], [place] [address] documented as of this encounter Procedures Procedure Name Priority Date/Time Associated Diagnosis [...] Encounter for screening for other viral diseases documented in this encounter Results * UA Microscopic with Reflex to [...] Gupta MD LAB - URINE ORDERABL ES Performing Organization Address City/[facility]/ZIP Co de Phone Number LABORATORY [facility] [address] [facility] (no room number, 1st floor of clinic) [place] [address], [facility] [phone] * Erythrocyte sedimentation rate auto (08/12/2023 10:50 AM CDT) Erythrocyte Sedimentation Rate 22 0 - 30 mm/hr 08/12/2023 11:04 AM CDT LV LABORATORY Blood BLOOD SPECIMEN / Unknown Venipuncture / Unknown 08/12/2023 10:50 AM CDT 08/12/2023 10:50 AM CDT Betty Gupta MD LAB - BLOOD ORDERABL ES [facility] [address] [facility] (no room number, 1st floor of clinic) [place] [address], [facility] [phone] * CRP inflammation (08/12/2023 10:50 AM CDT) CRP Inflammation <3.00 <5.00 mg/L 08/13/19 12:19 AM CDT UU LABORATORY Blood BLOOD SPECIMEN / Unknown Venipuncture / Unknown 08/12/2023 10:50 AM CDT 08/12/2023 10:50 AM CDT Betty Gupta MD LAB - BLOOD ORDERABL ES Performing Organization Address City/[facility]/ZIP Co de Phone Number U LABORATORY [facility] [address] [facility], [address] [address] * Protein random urine (08/12/2023 10:50 AM CDT) Pathologist [facility] Total Protein Urine mg/dL <6.0 mg/dL 08/13/2023 [...] Gupta MD LAB - URINE ORDERABL ES U LABORATORY [facility] [address] [facility], [address] [phone] * (ABNORMAL) Routine UA with Micro Reflex to Culture (08/12/2023 10:50 AM CDT) Color Urine Yellow Colorless, Straw, Light Yellow, Yellow 08/12/2023 11:12 AM CDT LABORATORY Appearance Urine Clear Clear 08/12/19 11:12 AM CDT LV LABORATORY Glucose Urine Negative Negative mg/dL 08/12/2023 11:12 AM CDT LV LABORATORY Bilirubin Urine Negative Negative 11:12 AM CDT LV LABORATORY Ketones Urine Negative Negative mg/dL 08/12/2023 11:12 AM CDT LV LABORATORY Specific [place] Urine 1.020 1.003 - 1.035 08/12/2023 11:12 AM CDT LABORATORY Blood Urine Trace(A) Negative 08/12/2023 11:12 AM CDT LABORATORY pH Urine 5.5 5.0 - 7.0 08/12/2023 11:12 AM CDT LV LABORATORY Protein Albumin Urine Negative Negative mg/dL 08/12/2023 11:12 AM CDT LABORATORY Urobilinogen Urine 0.2 0.2, 1.0 E.U./dL 08/12/2023 11:12 AM CDT LV LABORATORY Nitrite Urine Negative Negative 08/12/2023 11:12 AM CDT LABORATORY Leukocyte Esterase Urine Negative Negative 08/12/2023 11:12 AM CDT LABORATORY Urine URINE SPECIMEN OBTAINED BY CLEAN CATCH PROCEDURE / Unknown Non-blood Collection / Unknown 08/12/2023 10:50 AM CDT 08/12/2023 11:01 AM CDT Betty Gupta MD LAB - URINE ORDERABL ES LABORATORY [facility] [address] [facility] (no room number, 1st floor of clinic) [place] [address], [facility] [phone] * Complement C4 (08/12/2023 10:50 AM CDT) C4 Complement 21 13 - 39 mg/dL 08/13/2023 1:49 PM CDT [facility] SPECIAL[facility] CORE/PROT/ENDO Blood BLOOD SPECIMEN / Unknown Venipuncture / Unknown 08/12/2023 10:50 AM CDT 08/12/2023 10:50 AM CDT Betty Gupta MD LAB - BLOOD ORDERABL ES [facility] CORE/PROT/ENDO [facility] Specialty Core/Prot/Endo [address] [facility] [address], Room [address] * Complement C3 (08/12/2023 10:50 AM CDT) C3 Complement 138 81 - 157 mg/dL 08/13/2023 1:49 PM CDT [facility] SPECIALTY CORE/PROT/ENDO Blood BLOOD SPECIMEN / Unknown Venipuncture / Unknown 08/12/2023 10:50 AM CDT 08/12/2023 10:50 AM CDT Betty Gupta MD LAB - BLOOD ORDERABL ES [facility] SPECIALTY CORE/PROT/ENDO Specialty Core/Prot/Endo [address] [facility] [address] [facility], Room [address] * DNA ANTIBODY, NATV/2 STRAND (08/12/2023 10:50 AM CDT) DNA (ds) Antibody 0.8 <10.0 IU/mL 08/15/2023 9:55 AM CDT [facility] CORE/PROT/ENDO Comment:Negative Blood BLOOD SPECIMEN / Unknown Venipuncture / Unknown 08/12/2023 10:50 AM CDT 08/12/2023 10:50 AM CDT Narrative [facility] SPECIAL[facility] CORE/PROT/ENDO - 08/15/2023 9:55 AM CDT Negative: ??Less than 10 Equivocal: 10-15 Positive: ??Greater than 15 Betty Gupta MD LAB - BLOOD ORDERABL ES [facility] SPECIALTY CORE/PROT/ENDO [facility] Specialty Core/Prot/Endo [address], [address] * Creatinine (08/12/2023 10:50 AM CDT) Creatinine 0.65 0.51 - 0.95 mg/dL 08/13/2023 12:19 AM CDT UU LABORATORY GFR Estimate >90 >60 mL/min/1.73 m2 08/13/2023 12:19 AM CDT UU LABORATORY Blood BLOOD SPECIMEN / Unknown Venipuncture / Unknown 08/12/2023 10:50 AM CDT 08/12/2023 10:50 AM CDT Betty Gupta MD LAB - BLOOD ORDERABL ES U LABORATORY [facility] [address] [facility], Room [address] * Albumin level (08/12/2023 10:50 AM CDT) Albumin 4.4 3.5 - 5.2 g/dL 08/13/2023 12:19 AM CDT UU LABORATORY Blood BLOOD SPECIMEN / Unknown Venipuncture / Unknown 08/12/2023 10:50 AM CDT 08/12/2023 10:50 AM CDT Betty Gupta MD LAB - BLOOD ORDERABL ES U LABORATORY [facility] [address] [facility], [address] * ALT (08/12/2023 10:50 AM CDT) ALT 19 0 - 50 U/L 08/13/2023 12:19 AM CDT UU LABORATORY Blood BLOOD SPECIMEN / Unknown Venipuncture / Unknown 08/12/2023 10:50 AM CDT 08/12/2023 10:50 AM CDT Betty Gupta MD LAB - BLOOD ORDERABL ES [facility] LABORATORY [facility] [address] [facility], [address] [id number] * AST (08/12/2023 10:50 AM CDT) Pathologist [facility] AST 16 0 - 45 U/L 08/13/2023 12:19 AM CDT UU LABORATORY Blood BLOOD SPECIMEN / Unknown Venipuncture / Unknown 08/12/2023 10:50 AM CDT 08/12/2023 10:50 AM CDT Betty Gupta MD LAB - BLOOD ORDERABL ES U[facility] LABORATORY [facility] [address] [facility], [address] [phone] * CBC with platelets (08/12/2023 10:50 AM CDT) Pathologist [facility] WBC Count 6.9 4.0 - 11.0 10e3/uL [...] MD LAB - BLOOD ORDERABL ES LABORATORY [facility] [address] [facility] (no room number, 1st floor of clinic) [place] [address], [facility] [phone] documented in this encounter Visit Diagnoses Diagnosis Systemic lupus erythematosus, organ or system involvement unspecified (H) Antiphospholipid syndrome (H24) Primary hypercoagulable state Encounter for screening for other viral diseases documented in this encounter Additional Health Concerns Assessment Noted Time PHQ-9 Depression Total Score: 2 09/21/19 20 7:02 AM CDT documented as of this encounter Care Teams Water Quality Assistant Relationship Specialty Start Date End Date Mehreen Toussaint NP [address] [address] PCP - General 03/07/23 [place] [address] [place] [address] Assigned Rheumatology Provider 02/26/20 Nilton Roach PA-C [address] [place] [address] Assigned PCP 05/30/23 documented as of this encounter
--- OUTSIDE RECORDS SUMMARY | 2023-08-30 12:55 | XMS_ITS | Encounter Summary ---
Author Name Unknown Organization [place] Address [address] [place] [address] Care Team Providers Care Paint Trimmer Pipe Bowls Name Role Phone Betty Gupta MD Unavailable [phone] Mehreen Toussaint NP Primary Care Provider [phone] Nilton Roach PA-C Unavailable [phone] Farzana Sabillon MD Unavailable [phone] Encounter Details Date Type Department Care Team (Late st Contact Info) Description 08/13/2023 MyC Medical Advice [facility] [address] [place] [address] Aranza Morales, ADMINISTRATIVE RESOURCES ASSOCIATE Social History Tobacco Use Types Packs/Day Years [...] Sex Assigned at Female 04/23/2018 4:04 PM KETTLE HAND Gender Identity Female 04/23/2018 4:04 PM KETTLE HAND Sexual Orientation Straight 04/23/2018 4: 04 PM KETTLE HAND documented as of this encounter Plan of Treatment Upcoming Encounters Date Type Department Care Team (Late st Contact Info) Description 09/13/2023 1:00 PM CDT [facility] [address] [facility] [address] [place] [phone] Saroj Romeo MD [address] [facility] [address] [place], [place] [address] 10/01/2023 2:00 PM CDT Virtual Visit [facility] [address] [place] [phone] Farzana Sabillon MD [address] [place], [place] [address] 11/20/2023 11:00 AM CDT Office Visit [facility] 909 [place] [phone] Jean Guerin MD 6401 [place] [address] documented as of this encounter Visit Diagnoses Not on filedocumented in this encounter Additional Health Concerns Assessment Noted Time PHQ-9 Depression Total Score: 2 09/21/19 20 7:02 AM CDT documented as of this encounter Care Teams Paint Trimmer Pipe Bowls Relationship Specialty Start Date End Date Mehreen Toussaint NP [address] [address] PCP - General 03/07/23 [place] [address] [place] [address] Assigned Rheumatology Provider 02/26/20 Nilton Roach PA-C [address] [facility] 100 [place] [address] Assigned PCP 05/30/23 Farzana Sabillon MD [address] [place] [address] 200 [place] [address] Assigned Endocrinology Provider 08/27/23 documented as of this encounter
--- OUTSIDE RECORDS SUMMARY | 2023-08-30 12:55 | XMS_ITS | Encounter Summary ---
Author Name Unknown Organization [place] Address [facility] [place] [address] Care Team Providers Care Park Guide Name Role Phone Betty Gputa MD Unavailable [phone] Mehreen Toussaint NP Primary Care Provider Nilton Roach PA-C Unavailable [phone] Farzana Sabillon MD Unavailable [phone] Encounter Details Date Type Department Care Team (Late st Contact Info) Description 07/01/2023 MyC Medical Advice [facility] [address] [place] [address] [place] [address] [place] [address] Social History Tobacco Use Types Packs/Day Years [...] Sex Assigned at Female 04/23/2018 4:04 PM CEMENT CRUSHER OPERATOR Gender Identity Female 04/23/2018 4:04 PM CEMENT CRUSHER OPERATOR Sexual Orientation Straight 04/23/2018 4: 04 PM CEMENT CRUSHER OPERATOR documented as of this encounter Plan of Treatment Upcoming Encounters Date Type Department Care Team (Late st Contact Info) Description 09/13/2023 1:00 PM CDT Office Visit [facility] [place] [address] [facility] [address] [place] [phone] Saroj Romeo MD [address] [place], [place] [address] 10/01/2023 2:00 PM CDT Virtual Visit [facility] [address] [place] [phone] Farzana Sabillon MD [address] 200 [place], [place] [address] 11/20/2023 11:00 AM CDT Office Visit [facility] [address] [place] [phone] Jean Guerin MD 6401 [place], [place] [address] documented as of this encounter Visit Diagnoses Not on filedocumented in this encounter Additional Health Concerns Assessment Noted Time PHQ-9 Depression Total Score: 2 09/21/19 20 7:02 AM CDT documented as of this encounter Care Teams Park Guide Relationship Specialty Start Date End Date Mehreen Toussaint NP [address] [address] PCP - General 03/07/23 [place] [address] [place] [address] Assigned Rheumatology Provider 02/26/20 Nilton Roach PA-C [address] [facility] 100 [place] [address] Assigned PCP 05/30/23 Farzana Sabillon MD [address] [facility] 200 [place] [address] Assigned Endocrinology Provider 08/27/23 documented as of this encounter
--- OUTSIDE RECORDS SUMMARY | 2023-08-30 12:56 | XMS_ITS | Encounter Summary ---
Author Name Unknown Organization [place] Address [address] [place] [address] Care Team Providers Care Financial Analyst Accountant Name Role Phone Betty Gupta MD Unavailable [phone] Keegan Mcdonald MD Unavailable [phone] Jean Guerin MD Unavailable [phone] Mehreen Toussaint NP Primary Care Provider Nilton Roach PA-C Unavailable Encounter Details Date Type Department Care Team (Late st Contact Info) Description 05/01/2023 [facility] [place] [facility] [address] [address] Citlalli Ramírez, RN Social History Tobacco Use Types Packs/Day Years [...] Sex Assigned at Female 04/23/2018 4:04 PM SUPERVISOR RECLAMATION Gender Identity Female 04/23/2018 4:04 PM SUPERVISOR RECLAMATION Sexual Orientation Straight 04/23/2018 4: 04 PM SUPERVISOR RECLAMATION documented as of this encounter Plan of Treatment Upcoming Encounters Date Type Department Care Team (Late st Contact Info) Description 09/13/2023 1:00 PM CDT Office Visit [facility] [place] [address] [facility] [address] [place] [phone] Saroj [place]o MD [address] [place], [place] [address] 10/01/2023 2:00 PM CDT Virtual Visit [facility] [address] [place] [phone] Farzana Sabillon MD [address] [place] [address] [address] [place], [place] [address] 11/20/2023 11:00 AM CDT Office Visit [facility] [place] 9[address] [place] [phone] Jean Guerin MD 6401 [place] [address] documented as of this encounter Visit Diagnoses Not on filedocumented in this encounter Additional Health Concerns Assessment Noted Time PHQ-9 Depression Total Score: 2 09/21/19 20 7:02 AM CDT documented as of this encounter Care Teams Financial Analyst Accountant Relationship Specialty Start Date End Date Mehreen Toussaint NP [address] [address] PCP - General 03/07/23 [place] [address] [place] [address] Assigned Rheumatology Provider 02/26/20 [place] [address] [place] [address] Assigned Pulmonology Provider 12/30/21 05/03/23 Jean Guerin MD [address] [place] [address] Assigned PCP 12/22/22 05/29/23 Nilton Roach PA-C [address] [place] [address] Assigned PCP 05/30/23 documented as of this encounter
--- OUTSIDE RECORDS SUMMARY | 2023-08-30 12:56 | XMS_ITS | Encounter Summary ---
Author Name Unknown Organization [place] Address [address] [place] [address] Care Team Providers Care Foster Care Therapist Name Role Phone Betty Gupta MD Unavailable [phone] Mehreen Toussaint NP Primary Care Provider [phone] Nilton Roach PA-C Unavailable [phone] Encounter Details Date Type Department Care Team (Late st Contact Info) Description 06/07/2023 Orders Only [facility] [address] [address] Marcelle Hopson RN Stage 4 very severe COPD by GOLD classification (H) (Primary Dx) Social History Tobacco Use Types Packs/Day Years [...] Sex Assigned at Female 04/23/2018 4:04 PM GRAPHIC ART DESIGNER Gender Identity Female 04/23/2018 4:04 PM GRAPHIC ART DESIGNER Sexual Orientation Straight 04/23/2018 4: 04 PM GRAPHIC ART DESIGNER documented as of this encounter Plan of Treatment Upcoming Encounters Date Type Department Care Team (Late st Contact Info) Description 09/13/2023 1:00 PM CDT Office Visit [facility] [address] [facility] [address] [place] [phone] Saroj Romeo MD [address] [place], [place] [address] 10/01/2023 2:00 PM CDT Virtual Visit [facility] [address] [place] [phone] Farzana Sabillon MD [address] [place] [address] 11/20/2023 11:00 AM CDT Office Visit [facility] 909 [place] [phone] Jean Guerin MD 6401 [place], [place] [address] Scheduled Orders Name Type Priority Associated Diagnoses Orde r Schedule Overnight oximetry study for DME - ONLY FOR DME Respiratory Care Routine Stage 4 very severe COPD by GOLD classification (H) Expected: 06/07/2023 (Approximate), Expires: 06/07/2024 documented as of this encounter Visit Diagnoses Diagnosis Stage 4 very severe COPD by GOLD classification (H)- Primary documented in this encounter Additional Health Concerns Assessment Noted Time PHQ-9 Depression Total Score: 2 09/21/19 7:02 AM CDT documented as of this encounter Care Teams Foster Care Therapist Relationship Specialty Start Date End Date Mehreen Toussaint NP [address] [address] PCP - General 03/07/23 [place] [address] [place] [address] Assigned Rheumatology Provider 02/26/20 Nilton Roach PA-C [address] [place] [address] Assigned PCP 05/30/23 documented as of this encounter
--- OUTSIDE RECORDS SUMMARY | 2023-08-30 12:56 | XMS_ITS | Encounter Summary ---
Author Name Unknown Organization [place] Address [address] [place] [address]. [place] [address] Care Team Providers Care Transformer Tester Name Role Phone Betty Gupta MD Unavailable [phone] Mehreen Toussaint NP Primary Care Provider Nilton Roach PA-C Unavailable [phone] Encounter Details Date Type Department Care Team (Latest Contact Info) Description 06/10/2023 Travel Social History Tobacco Use Types Packs/Day [...] Sex Assigned at Female 04/23/2018 4:04 PM WIDE LOAD ESCORT Gender Identity Female 04/23/2018 4:04 PM WIDE LOAD ESCORT Sexual Orientation Straight 04/23/2018 4: 04 PM WIDE LOAD ESCORT documented as of this encounter Plan of Treatment Upcoming Encounters Date Type Department Care Team (Late st Contact Info) Description 09/13/2023 1:00 PM CDT Office Visit [facility] [address] [address] Saroj Romeo MD [address] [place] [address] 10/01/2023 2:00 PM CDT Virtual Visit [facility] [address] [place] [phone] Farzana Sabillon MD [address] [place] [address] 11/20/2023 11:00 AM CDT Office Visit [facility] [address] [phone] Jean Guerin MD [address] [facility] [place] [address] documented as of this encounter Visit Diagnoses Not on filedocumented in this encounter Additional Health Concerns Assessment Noted Time PHQ-9 Depression Total Score: 2 09/21/19 20 7:02 AM CDT documented as of this encounter Care Teams Transformer Tester Relationship Specialty Start Date End Date Mehreen Toussaint NP [address] [address] PCP - General 03/07/23 [place] [address] [place] [address] Assigned Rheumatology Provider 02/26/20 Nilton Roach PA-C [address] [facility] 100 [place], [place] [address] Assigned PCP 05/30/23 documented as of this encounter
--- OUTSIDE RECORDS SUMMARY | 2023-08-30 12:56 | XMS_ITS | Encounter Summary ---
Author Name Unknown Organization [place] Address [address] [place] [address] Care Team Providers Care Ammonia Solution Preparer Name Role Phone Nilton Roach PA-C Primary Care Provider Nilton Roach PA-C Unavailable [phone] Betty Gupta MD Unavailable Keegan Mcdonald MD Unavailable [phone] Jean Guerin MD Unavailable [phone] Mehreen Toussaint NP Primary Care Provider [phone] Nilton Roach PA-C Unavailable [phone] Farzana Sabillon MD Unavailable [phone] Encounter Details Date Type Department Care Team (Late st Contact Info) Description 10/29/2022 MyC Medical Advice [address] [address] Faith Farnsworth, RN Social History Tobacco Use Types Packs/Day Years Used Date Smoking Tobacco: Former Cigarettes 1 40 0 06/06/1979 - 06/06/2019 Smokeless Tobacco: Never Comments:Occasional Alcohol Use Standard Drinks/Week Comments No 0 (1 standard drink = 0.6 oz pur e alcohol) PHQ-2 Answer Date Recorded PHQ-2 Score 0 10/27/2021 Sex and Gender Information Value Date Recorded Sex Assigned at Female 04/23/2018 4:04 PM STRIP CATCHER Gender Identity Female 04/23/2018 4:04 PM STRIP CATCHER Sexual Orientation Straight 04/23/2018 4: 04 PM STRIP CATCHER documented as of this encounter Plan of Treatment Upcoming Encounters Date Type Department Care Team (Late st Contact Info) Description 09/13/2023 1:00 PM CDT Office Visit [facility] [place] [address] [facility] [address] [place] [phone] Saroj Romeo MD [address] [place] [address] 10/01/2023 2:00 PM CDT Virtual Visit [facility] [address] [place] [phone] Farzana Sabillon MD [address] 200 [place] [address] 11/20/2023 11:00 AM CDT Office Visit [facility] [place] [address] [place] [phone] Jean Guerin MD 6401 [place] [address] documented as of this encounter Visit Diagnoses Not on filedocumented in this encounter Additional Health Concerns Assessment Noted Time PHQ-9 Depression Total Score: 2 09/21/19 20 7:02 AM CDT documented as of this encounter Care Teams Ammonia Solution Preparer Relationship Specialty Start Date End Date Nilton Roach PA-C [address] [facility] [address] [place] [address] PCP - General Physician Recovery Rn 01/02/17 03/06/23 Mehreen Toussaint NP [address] [address] PCP - General 03/07/23 Nilton Roach PA-C 290 [facility] 100 [place] [address] Assigned PCP 12/13/16 12/21/22 [place] [address] [place] [address] Assigned Rheumatology Provider 02/26/20 [place] [address] [place] [address] Assigned Pulmonology Provider 12/30/21 05/03/23 Jean Guerin MD [address] [facility] [place] [address] Assigned PCP 12/22/22 05/29/23 Nilton Roach PA-C 290 [facility] 100 [place] [address] Assigned PCP 05/30/23 Farzana Sabillon MD [address] [facility] 200 [place], [place] [address] Assigned Endocrinology Provider 08/27/23 documented as of this encounter
--- OUTSIDE RECORDS SUMMARY | 2023-08-30 12:56 | XMS_ITS | Encounter Summary ---
Author Name Unknown Organization [place] Address [address] [place] [address]. [place] [address] Care Team Providers Care Mutual Fund Manager Name Role Phone Betty Gupta MD Unavailable [phone] Mehreen Toussaint NP Primary Care Provider [phone] Nilton Roach PA-C Unavailable [phone] Encounter Details Date Type Department Care Team (Latest Contact Info) Description 06/10/2023 12:30 PM INSURANCE MARKETING SPECIALIST Office Visit [facility] Pulmonary Function Testing [address] [place] [address] Jean Guerin MD [address]73 [place], [place] [phone] Stage 4 very severe COPD by GOLD classification (H) Social History Tobacco Use Types Packs/Day Years [...] Sex Assigned at Female 04/23/2018 4:04 PM INSURANCE MARKETING SPECIALIST Gender Identity Female 04/23/2018 4:04 PM INSURANCE MARKETING SPECIALIST Sexual Orientation Straight 04/23/2018 4: 04 PM INSURANCE MARKETING SPECIALIST documented as of this encounter Progress Notes * Gabrielle Kimbrough - 06/10/2023 12:30 PM CST Six minute walk test done today. RANCE MARKETING SPECIALIST documented in this encounter Plan of Treatment Upcoming Encounters Date Type Department Care Team (Late st Contact Info) Description 09/13/2023 1:00 PM CDT Office Visit [facility] [place] [address] [facility] [address] [place] [phone] Saroj Romeo MD 420 [facility] [place], [place] [address] 10/01/2023 2:00 PM CDT Virtual Visit [facility] [address] [place] [address] [place] [address] Farzana Sabillon MD [address] [place] [address] 200 [place], [place] [address] 11/20/2023 11:00 AM CDT Office Visit [facility] [address] [phone] Jean Guerin MD 6401 [place], [place] [address] documented as of this encounter Procedures Procedure Name Priority Date/Time Associated Diagnosis Comments [place] PULMONARY STRESS TEST Routine 06/10/2023 2:32 PM INSURANCE MARKETING SPECIALIST Stage 4 very severe COPD by GOLD classification (H) PFT GENERAL LAB TESTING Routine 06/10/2023 2:03 PM INSURANCE MARKETING SPECIALIST Stage 4 very severe COPD by GOLD classification (H) 6 MINUTE WALK TEST Routine 06/10/2023 Stage 4 very severe COPD by GOLD classification (H) documented in this encounter Results * General PFT Lab (Please always keep checked) (06/10/2023 2:03 PM INSURANCE MARKETING SPECIALIST) FIO2-Pre 28.00 % BREEZE PFT 06/10/2023 2:03 PM INSURANCE MARKETING SPECIALIST Narrative LUIS PFT - 06/13/2023 6:45 PM INSURANCE MARKETING SPECIALIST IMPRESSION: Hypoxemia with ambulation on room air. Six minute walk distance is reduced indicating a decrease in exercise tolerance. There is significant oxygen desaturation, without hypoxemia, during the six- minute walk done on supplemental oxygen at 2 L/m. Jose G Peters MD ?This interpretation has been electronically signed: ??JOSE G PETERS 06/13/2023 ??06:28:31 PM? Jean Guerin MD PFT ORDERABL ES LUIS PFT * 6 minute walk test (06/10/2023) 6 min walk (FT) 680 1,352 ft 6 Min Walk (M) 207 412 m Jean Guerin MD PFT ORDERABL ES documented in this encounter Visit Diagnoses Diagnosis Stage 4 very severe COPD by GOLD classification (H) documented in this encounter Additional Health Concerns Assessment Noted Time PHQ-9 Depression Total Score: 2 09/21/19 20 7:02 AM CDT documented as of this encounter Care Teams Mutual Fund Manager Relationship Specialty Start Date End Date Mehreen Toussaint NP [address] [address] PCP - General 03/07/23 [place] [address] [place] [address] Assigned Rheumatology Provider 02/26/20 Nilton Roach PA-C [address] [place] [address] Assigned PCP 05/30/23 documented as of this encounter
--- OUTSIDE RECORDS SUMMARY | 2023-08-30 12:56 | XMS_ITS | Encounter Summary ---
Author Name Unknown Organization [place] Address [address] [place] [address]. [place] [address] Care Team Providers Care Software Development Manager Name Role Phone Nilton Roach PA-C Primary Care Provider Nilton Roach PA-C Unavailable [phone] Betty Gupta MD Unavailable Keegan Mcdonald MD Unavailable Jean Guerin MD Unavailable [phone] Mehreen Toussaint NP Primary Care Provider Nilton Roach PA-C Unavailable [phone] Farzana Sabillon MD Unavailable [phone] Encounter Details Date Type Department Care Team (Late st Contact Info) Description 05/25/2022 MyC Medical Advice [facility] [address] [place] [phone] Carol Lloyd Social History Tobacco Use Types Packs/Day Years Used Date Smoking Tobacco: Former Cigarettes 1 40 0 06/06/1979 - 06/06/2019 Smokeless Tobacco: Never Comments:Occasional Alcohol Use Standard Drinks/Week Comments No 0 (1 standard drink = 0.6 oz pur e alcohol) PHQ-2 Answer Date Recorded PHQ-2 Score 0 10/27/2021 Sex and Gender Information Value Date Recorded Sex Assigned at Female 04/23/2018 4:04 PM COOLING PIPE INSPECTOR Gender Identity Female 04/23/2018 4:04 PM COOLING PIPE INSPECTOR Sexual Orientation Straight 04/23/2018 4: 04 PM COOLING PIPE INSPECTOR COVID-19 Exposure Response Date Recorded In the last 10 days, have yo u been in contact with someone who was confirmed or suspected to have Coronavirus/COVID-19? No / Unsure 05/02/2022 10:29 AM COOLING PIPE INSPECTOR documented as of this encounter Miscellaneous Notes * Telephone Encounter - Corrie Guidry RMA - 05/30/2022 3:48 PM CST Benlysta Peterson form completed and faxed. GRETCHEN Fraser Email: [email or web address] - Rheumatology ING PIPE INSPECTOR documented in this encounter Plan of Treatment Upcoming Encounters Date Type Department Care Team (Late st Contact Info) Description 09/13/2023 1:00 PM CDT Office Visit [facility] [place] [address] [phone] Saroj Romeo MD 420 [place], [place] [phone] 10/01/2023 2:00 PM CDT Virtual Visit [facility] [address] [facility] [address] [place] [address] Farzana Sabillon MD [address] [place] [address] 200 [place], [place] [address] 11/20/2023 11:00 AM CDT Office Visit [facility] [place] 909 [place] [phone] Jean Guerin MD 6401 [place] [address] documented as of this encounter Visit Diagnoses Not on filedocumented in this encounter Additional Health Concerns Assessment Noted Time PHQ-9 Depression Total Score: 2 09/21/19 20 7:02 AM CDT documented as of this encounter Care Teams Software Development Manager Relationship Specialty Start Date End Date Nitlon Roach PA-C [address] [address] PCP - General Physician Inventory Planner 01/02/17 03/06/23 Mehreen Toussaint, GURJIT [address] [address] PCP - General 03/07/23 Nilton Roach PA-C [address] [address] Assigned PCP 12/13/16 12/21/22 [place] [address] [place] [address] Assigned Rheumatology Provider 02/26/20 [place] [address] [place] [address] Assigned Pulmonology Provider 12/30/21 05/03/23 Jean Guerin MD [address] [place] [address] Assigned PCP 12/22/22 05/29/23 Nilton Roach PA-C [address] [address] Assigned PCP 05/30/23 Farzana Sabillon MD [address] [facility] 200 [place] [address] Assigned Endocrinology Provider 08/27/23 documented as of this encounter
--- OUTSIDE RECORDS SUMMARY | 2023-08-30 12:56 | XMS_ITS | Encounter Summary ---
Author Name Unknown Organization [place] Address [address] [place] [address]. [place] [address] Care Team Providers Care Inward Toll Operator Name Role Phone Betty Gupta MD Unavailable [phone] Mehreen Toussaint NP Primary Care Provider Nilton Roach PA-C Unavailable [phone] Encounter Details Date Type Department Care Team (Late st Contact Info) Description 06/14/2023 Telephone [facility] [address] [address] Jean Guerin MD 6404 [place], [place] [address] Social History Tobacco Use Types Packs/Day Years [...] Sex Assigned at Female 04/23/2018 4:04 PM VP SITE Gender Identity Female 04/23/2018 4:04 PM VP SITE Sexual Orientation Straight 04/23/2018 4: 04 PM VP SITE documented as of this encounter Miscellaneous Notes * Telephone Encounter - Luiz Sandoval RT - 06/14/2023 1:36 PM CST Faxed cover sheet, demographic sheet, notes, 6MWT and signed order for home oxygen. Faxed to Tricia at [phone]. RT Perico SITE documented in this encounter Plan of Treatment Upcoming Encounters Date Type Department Care Team (Late st Contact Info) Description 09/13/2023 1:00 PM CDT Office Visit [facility] [address] [facility] [address] [place] [phone] Saroj Romeo MD [address] [facility] [place], [place] [address] 10/01/2023 2:00 PM CDT Virtual Visit [facility] [address] [place] [phone] Farzana Sabillon MD [address] [place] [address] [address] [place], [place] [address] 11/20/2023 11:00 AM CDT Office Visit [facility] [place] 909 [place] [phone] Jean Guerin MD 6401 [place] [address] documented as of this encounter Visit Diagnoses Not on filedocumented in this encounter Additional Health Concerns Assessment Noted Time PHQ-9 Depression Total Score: 2 09/21/19 20 7:02 AM CDT documented as of this encounter Care Teams Inward Toll Operator Relationship Specialty Start Date End Date Mehreen Toussaint NP [address] [address] PCP - General 03/07/23 [place] [address] [place] [address] Assigned Rheumatology Provider 02/26/20 Nilton Roach PA-C 290 [facility] 100 [place] [address] Assigned PCP 05/30/23 documented as of this encounter
--- OUTSIDE RECORDS SUMMARY | 2023-08-30 12:56 | XMS_ITS | Encounter Summary ---
Author Name Unknown Organization [place] Address [address] [place] [address]. [place] [address] Care Team Providers Care Electrodynamicist Name Role Phone Betty Gupta MD Unavailable [phone] Mehreen Toussaint NP Primary Care Provider [phone] Nilton Roach PA-C Unavailable [phone] Encounter Details Date Type Department Care Team (Late st Contact Info) Description 06/13/2023 [facility] Medical Advice [facility] [address] [address] Jean Guerin MD 6404 [place] [address] Social History Tobacco Use Types Packs/Day Years [...] Sex Assigned at Female 04/23/2018 4:04 PM TRUCK DRIVER Gender Identity Female 04/23/2018 4:04 PM TRUCK DRIVER Sexual Orientation Straight 04/23/2018 4: 04 PM TRUCK DRIVER documented as of this encounter Miscellaneous Notes * Telephone Encounter - Marcelle Hopson RN - 06/14/2023 10:[address] Guerin placed oxygen order and addended note. Manager Regional forwarded message to Luis Sandoval to get home oxygen set up for patient with [employer]. K DRIVER documented in this encounter Plan of Treatment Upcoming Encounters Date Type Department Care Team (Late st Contact Info) Description 09/13/2023 1:00 PM CDT Office Visit [facility] [address] [facility] [place] [phone] Saroj Romeo MD 420 [place], [place] [address] 10/01/2023 2:00 PM CDT Virtual Visit [facility] [address] [place] [address] [place] [phone] Farzana Sabillon MD [address] [place] [address] [address] [place], [place] [address] 11/20/2023 11:00 AM CDT Office Visit [facility] [place] 909 [place] [phone] Jean Guerin MD 6401 [place] [address] documented as of this encounter Visit Diagnoses Not on filedocumented in this encounter Additional Health Concerns Assessment Noted Time PHQ-9 Depression Total Score: 2 09/21/19 20 7:02 AM CDT documented as of this encounter Care Teams Electrodynamicist Relationship Specialty Start Date End Date Mehreen Toussaint NP [address] [address] PCP - General 11/2/23 [place] [address] [facility] [place] [address] Assigned Rheumatology Provider 02/26/20 Nilton Roach PA-C 290 [facility] 100 [place] [address] Assigned PCP 05/30/23 documented as of this encounter
--- OUTSIDE RECORDS SUMMARY | 2023-08-30 12:56 | XMS_ITS | Encounter Summary ---
Author Name Unknown Organization [place] Address [address] [place] [address] Care Team Providers Care Rock Worker Name Role Phone Betty Gupta MD Unavailable [phone] Mehreen Toussaint NP Primary Care Provider [phone] Nilton Roach PA-C Unavailable [phone] Encounter Details Date Type Department Care Team (Late st Contact Info) Description 06/06/2023 Orders Only [facility] [address] [address] Marcelle Hopson RN Stage 4 [...] Sex Assigned at Female 04/23/2018 4:04 PM CHRISTMAS TREE FARM WORKER Gender Identity Female 04/23/2018 4:04 PM CHRISTMAS TREE FARM WORKER Sexual Orientation Straight 04/23/2018 4: 04 PM CHRISTMAS TREE FARM WORKER documented as of this encounter Plan of Treatment Upcoming Encounters Date Type Department Care Team (Late st Contact Info) Description 09/13/2023 1:00 PM CDT Office Visit [facility] [address] [facility] [address] [place] [phone] Saroj Romeo MD [address] [place], [place] [address] 10/01/2023 2:00 PM CDT Virtual Visit [facility] [address] [place] [phone] Farzana Sabillon MD [address] [place], [place] [address] 11/20/2023 11:00 AM CDT Office Visit [facility] 909 [place] [address] Jean Guerin MD 6401 [place], [place] [address] documented as of this encounter Results * 6 minute walk test (06/10/2023) [facility] 6 min walk (FT) 680 1,352 ft [...] documented as of this encounter Care Teams Rock Worker Relationship Specialty Start Date End Date Mehreen Toussaint NP [address] [address] PCP - General 03/07/23 [place] [address] [place] [address] Assigned Rheumatology Provider 02/26/20 Nilton Roach PA-C [address] [place] [address], [place] [address] Assigned PCP 05/30/23 documented as of this encounter
--- OUTSIDE RECORDS SUMMARY | 2023-08-30 12:56 | XMS_ITS | Encounter Summary ---
Author Name Unknown Organization [place] Address [facility] [place] [address] Care Team Providers Care Animal Sticker Name Role Phone Betty Gupta MD Unavailable [phone] Keegan Mcdonald MD Unavailable Jean Guerin MD Unavailable [phone] Mehreen Toussaint NP Primary Care Provider Nilton Rocah PA-C Unavailable Farzana Sabillon MD Unavailable [phone] Reason for Visit * Reason Onset Date Comments Prior Auth - Medication 04/16/2023 PAP Abel bryant Encounter Details Date Type Department Care Team (Late st Contact Info) Description 04/16/2023 [facility] [address] [address] [place] [address] [place] [address] Prior Auth - Medication (PAP Renewal ) Social History Tobacco Use Types Packs/Day Years [...] Sex Assigned at Female 04/23/2018 4:04 PM SERVICE CONTROL OPERATOR Gender Identity Female 04/23/2018 4:04 PM SERVICE CONTROL OPERATOR Sexual Orientation Straight 04/23/2018 4: 04 PM SERVICE CONTROL OPERATOR documented as of this encounter Miscellaneous Notes * Telephone Encounter - Sandhya Kim - 05/08/2023 1:23 PM CST Spoke to Vicki they have the application and it is under review They will have a ETA by 05/20/2023 Yoseph Hutchinson, [facility] ICE CONTROL OPERATOR * Telephone Encounter - Lars Henning - 05/01/2023 5:42 PM CST Images from the original note were not included. Date: 05/01 Comments: Spoke to PT. Pt has not filled out their portion yet but will finish it tomorrow and sendback to Sandhya ICE CONTROL OPERATOR * Telephone Encounter - Sandhya Kim - 04/30/2023 11:16 AM CST Re faxed renewal application to clinic in [place] to complete Yoseph Hutchinson, [facility] ICE CONTROL OPERATOR * Telephone Encounter - Sandhya Kim - 04/22/2023 11:30 AM CST Marni Sanchez-- faxing this PAP application to you guys since Candy will be in [place] this week Bottom Precipitator Operator will fax pap application to FAX # [phone] [place] Thank you please review and get signatures -- you can fax directly to vicki please FAX [phone] Yoseph Hutchinson, [facility] [email or web address] ICE CONTROL OPERATOR * Telephone Encounter - Sandhya Kim - 04/19/2023 8:29 AM CST FREE DRUG APPLICATION INITIATED Medication: BENLYSTA Free Drug Program Name: Benlysta [place] Date Submitted: 04/19/2023 8:29 AM Phone #: [phone] Fax #: [phone] Additional Information: Bottom Precipitator Operator has sent application for MD to complete and fax to obdulialysta to Rns Yoseph Hutchinson, [facility] ICE CONTROL OPERATOR documented in this encounter Plan of Treatment Upcoming Encounters Date Type Department Care Team (Late st Contact Info) Description 09/13/2023 1:00 PM CDT Office Visit [facility] [address] [address] Saroj Romeo MD 420 [place] [address] 10/01/2023 2:00 PM CDT Virtual Visit [facility] [address] [place] [address] [place] [address] Farzana Sabillon MD [address] [place] [address] 11/20/2023 11:00 AM CDT Office Visit [facility] [address] [phone] Jean Guerin MD [address] [place] [address] documented as of this encounter Visit Diagnoses Not on filedocumented in this encounter Additional Health Concerns Assessment Noted Time PHQ-9 Depression Total Score: 2 09/21/19 20 7:02 AM CDT documented as of this encounter Care Teams Animal Sticker Relationship Specialty Start Date End Date Mehreen Toussaint NP [address] [address] PCP - General 03/07/23 [place] [address] [place] [address] Assigned Rheumatology Provider 02/26/20 [place] [address] [place] [address] Assigned Pulmonology Provider 12/30/21 05/03/23 Jean Guerin MD [address] [place] [address] Assigned PCP 12/22/22 05/29/23 Nilton Roach PA-C [address] [facility] [facility] 100 [place] [address] Assigned PCP 05/30/23 Farzana Sabillon MD [address] [facility] 200 [place] [address] Assigned Endocrinology Provider 08/27/23 documented as of this encounter
--- OUTSIDE RECORDS SUMMARY | 2023-08-30 12:56 | XMS_ITS | Encounter Summary ---
Author Name Unknown Organization [place] Address [facility] [place] [address] Care Team Providers Care Archivist Military History Name Role Phone Nilton Roach PA-C Primary Care Provider Nilton Roach PA-C Unavailable [phone] Betty Gupta MD Unavailable [phone] Gray Lora MD Unavailable Nik Bryan MD Unavailable Keegan Mcdonald MD Unavailable Keegan Mcdonald MD Unavailable Jean Guerin MD Unavailable [phone] Mehreen Toussaint NP Primary Care Provider Nilton Roach PA-C Unavailable Farzana Sabillon MD Unavailable [phone] Encounter Details Date Type Department Care Team (Late st Contact Info) Description 05/03/2021 [facility] Medical Advice [facility] [address] [address] [place] [address] [place] [address] Social History Tobacco Use Types Packs/Day Years Used Date Smoking Tobacco: Former Cigarettes 1 40 0 06/06/1979 - 06/06/2019 Smokeless Tobacco: Never Comments:Occasional Alcohol Use Standard Drinks/Week Comments No 0 (1 standard drink = 0.6 oz pur e alcohol) PHQ-2 Answer Date Recorded PHQ-2 Score 0 04/05/2021 Sex and Gender Information Value Date Recorded Sex Assigned at Female 04/23/2018 4:04 PM TEACHER ADULT EDUCATION Gender Identity Female 04/23/2018 4:04 PM TEACHER ADULT EDUCATION Sexual Orientation Straight 04/23/2018 4: 04 PM TEACHER ADULT EDUCATION COVID-19 Exposure Response Date Recorded In the last month, have you been in contact with someone who was confirmed or suspected to have Coronavirus / COVID-19? No / Unsure 04/05/2021 3:25 PM TEACHER ADULT EDUCATION documented as of this encounter Plan of Treatment Upcoming Encounters Date Type Department Care Team (Late st Contact Info) Description 09/13/2023 1:00 PM CDT Office Visit [address] [place] [phone] Saroj Romeo MD 420 [place], [place] [address] 10/01/2023 2:00 PM CDT Virtual Visit [facility] [address] [place] [phone] Farzana Sabillon MD [address] 200 [place], [place] [address] 11/20/2023 11:00 AM CDT Office Visit [facility] [address] [place] [address] Jean Guerin MD [address] [place], [place] [address] documented as of this encounter Visit Diagnoses Not on filedocumented in this encounter Additional Health Concerns Assessment Noted Time PHQ-9 Depression Total Score: 2 09/21/19 7:02 AM CDT documented as of this encounter Care Teams Archivist Military History Relationship Specialty Start Date End Date Nilton Roach PA-C [address] [place] [address] PCP - General Physician Brim Curler 01/02/17 03/06/23 Mehreen Toussaint NP [address] [address] PCP - General 03/07/23 Nilton Roach PA-C [address] [place] [address] Assigned PCP 12/13/16 12/21/22 [place] [address] [place] [address] Assigned Rheumatology Provider 02/26/20 Gray Lora MD [address] [place] [address] Assigned Pulmonology Provider 02/26/20 05/27/21 Nik Bryan MD 9 [place] [address] Assigned Cancer Care Provider 02/26/20 11/17/21 Keegan Mcdonald MD [address] [place] [place] [address] Assigned Pulmonology Provider 07/09/21 09/02/21 Keegan Mcdonald MD [address] [address] Assigned Pulmonology Provider 12/30/21 05/03/23 Jean Guerin MD [address]01 [place] [address] Assigned PCP 12/22/22 05/29/23 Nilton Roach PA-C 290 [facility] 100 [place] [address] Assigned PCP 05/30/23 Farzana Sabillon MD [address] [place] [address] 200 [place] [address] Assigned Endocrinology Provider 08/27/23 documented as of this encounter
--- OUTSIDE RECORDS SUMMARY | 2023-08-30 12:56 | XMS_ITS | Encounter Summary ---
Author Name Unknown Organization [place] Address [address] [place] [address] Care Team Providers Care Language Interpreter Name Role Phone Betty Gupta MD Unavailable Jean Guerin MD Unavailable [phone] Mehreen Toussaint NP Primary Care Provider [phone] Reason for Visit * Reason Comments RECHECK Return COPD Encounter Details Date Type Department Care Team (Latest Contact Info) Description 05/22/2023 11:30 AM COMMERCIAL MAKEUP ARTIST Office Visit [facility] [address] [address] Jean Guerin MD 4464 [facility] [place] [address] Stage 4 very severe COPD by GOLD [...] Sex Assigned at Female 04/23/2018 4:04 PM COMMERCIAL MAKEUP ARTIST Gender Identity Female 04/23/2018 4:04 PM COMMERCIAL MAKEUP ARTIST Sexual Orientation Straight 04/23/2018 4: 04 PM COMMERCIAL MAKEUP ARTIST documented as of this encounter Last Filed Vital Signs Vital Sign Reading Time Taken Comments Blood Pressure 121/76 05/22/2023 11:13 AM COMMERCIAL MAKEUP ARTIST Pulse 124 05/22/2023 11:13 AM COMMERCIAL MAKEUP ARTIST Temperature - - Respiratory Rate 17 05/22/2023 11:13 AM COMMERCIAL MAKEUP ARTIST Oxygen Saturation 94% 05/22/2023 11:13 AM COMMERCIAL MAKEUP ARTIST 3L Inhaled Oxygen Concentration - - Weight 49 kg (108 lb) 05/22/2023 11:13 AM COMMERCIAL MAKEUP ARTIST Height 152.4 cm (5') 05/22/2023 11:13 AM COMMERCIAL MAKEUP ARTIST Body Mass Index 21.09 05/22/2023 11:13 AM COMMERCIAL MAKEUP ARTIST documented in this encounter Progress Notes * Jean Guerin MD - 05/22/2023 11:30 AM CST Pulmonology Clinic Follow up Visit Keila Bello Date of : 1960 Age: [age] year old Date of Visit: 05/22/2023 Reason for Visit: Follow-up COPD Assessment and Plan: ## COPD ## Emphysema ## Chronic hypoxic respiratory failure on 3-4L oxygen ## 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 Was increased to breztri but feels that it doesn't work as well as symbicort and was expensive. Currently being treated with azithromycin 3 times per week and supplemental oxygen. ALANIS 11/2019 with 13 min less that 88% 6-minute walk 06/10/2023 with hypoxia on room air but no hypoxia on 2 L. -Replace Symbicort with breyna and spirvia -Refill albuterol -Given prednisone for home action plan -Continue oxygen, encouraged to use all the time including overnight ## Health maintenance -Vaccination COVID most recently 03/15/2023, influenza 02/08/2023, Pneumovax 2012 and 2018, Prevnar 2021 ## Lung cancer screening Normal screening CT on 12/20/2022 1. ACR Assessment Category: Lung-RADS Category 2. Benign appearance or behavior. Recommendation: continue annual screening. . 2. Significant Incidental Finding(s): Category S: No. 3. Nodular focus in the posterior upper thoracic trachea (9 mm) may reflect small amount of adherent mucus, although not well characterized. This could be evaluated with direct visualization, otherwise attention on follow-up. -Discussed with the patient, we will continue annual screening I certify that this patient, Keila Bello has been under my care (or a nurse practitioner or physican's orthotics prosthetics assistant working with me). This is the ukyy-nk-dikj encounter for oxygen medical necessity. At the time of this encounter supplemental oxygen is reasonable and necessary and is expected to improve the patient's condition in a home setting. Patient has continued oxygen desaturation due to COPD J44.9. If portability is ordered, is the patient mobile within the home? yes Return to clinic: 6 months I personally spent 31 minutes on the date of the encounter doing chart review, history and exam, documentation and further activities per the note. Jean Guerin M.D. Pulmonary & Critical Care Pager: Click Here to page History of Present Illness / Interval History: Keila Bello is a 62 year old female with H/O past tobacco use, COPD/emphysema, and lupus presents to Follow-up COPD. Last seen: 11/27/2022 At her last visit she was changed to Breztri, but feels it does not really work for her. She feels that her breathing has been worse since starting it. She will go back to Symbicort, however this is no longer available. She feels that her breathing is more difficult currently and that she is more congested with more difficulty in clearing her mucus. She recently got a humidifier which seems to be helping. She is using her oxygen when active, but not usually at rest. She is not using it overnight. Review of Systems: Review of Systems Constitutional: Negative for chills and fever. HENT: Positive for congestion. Respiratory: Positive for cough, sputum production, shortness of breath and wheezing. Negative for hemoptysis. Physical Examination: BP 121/76 Pulse (!) 124 Resp 17 Ht 1.524 m (5') Wt 49 kg (108 lb) SpO2 94% BMI 21.09 kg/m?? Physical Exam Vitals and nursing note reviewed. Constitutional: Appearance: Normal appearance. Cardiovascular: Rate and Rhythm: Normal rate and regular rhythm. Heart sounds: No murmur heard. Pulmonary: Effort: Pulmonary effort is normal. Comments: Lungs distant with no abnormalities Neurological: Mental Status: She is alert. Fingernails without clubbing Data: Six Min Walk 06/10/23 Desaturation on RA but not with 2L Lung cancer screening CT 12/20/2022 1. ACR Assessment Category: Lung-RADS Category 2. Benign appearance or behavior. Recommendation: continue annual screening. . 2. Significant Incidental Finding(s): Category S: No. 3. Nodular focus in the posterior upper thoracic trachea (9 mm) may reflect small amount of adherent mucus, although not well characterized. This could be evaluated with direct visualization, otherwise attention on follow-up. All studies listed here were independently reviewed and interpreted by me today. Medications: Current Outpatient Medications Medication albuterol (2.5 MG/3ML) 0.083% neb solution albuterol (PROAIR HFA/PROVENTIL HFA/VENTOLIN HFA) 108 (90 Base) MCG/ACT inhaler albuterol (PROVENTIL) (2.5 MG/3ML) 0.083% neb solution azithromycin (ZITHROMAX) 250 MG tablet Belimumab 200 MG/ML SOAJ yvxoriq-rnktmfzjxmx-uwxtnuipiw (BREZTRI AEROSPHERE) 160-9-4.8 MCG/ACT AERO inhaler budesonide-formoterol (SYMBICORT) 160-4.5 MCG/ACT Inhaler Calcium Citrate-Vitamin D (CITRACAL + D PO) diphenhydrAMINE (BENADRYL) 25 MG capsule ipratropium - albuterol 0.5 mg/2.5 mg/3 mL (DUONEB) 0.5-2.5 (3) MG/3ML neb solution MUCINEX 600 MG 12 hr tablet rivaroxaban ANTICOAGULANT (XARELTO) 20 MG TABS tablet tiotropium (SPIRIVA HANDIHALER) 18 MCG inhaled capsule tiZANidine (ZANAFLEX) 2 MG tablet tiZANidine (ZANAFLEX) 4 MG capsule triamcinolone (KENALOG) 0.1 % external cream UNABLE TO FIND No current facility-administered medications for this visit. The above note was dictated using voice recognition software and may include typographical errors. Please contact the author for any clarifications. ERCIAL MAKEUP ARTIST documented in this encounter Nursing Notes * Jarred Goins - 05/22/2023 11:30 AM CST Chief Complaint Patient presents with RECHECK Return COPD Medications reviewed and vital signs taken. Jarred Goins CMA ERCIAL MAKEUP ARTIST documented in this encounter Plan of Treatment Upcoming Encounters Date Type Department Care Team (Late st Contact Info) Description 09/13/2023 1:00 PM CDT Office Visit [facility] [address] [place] [phone] Saroj Romeo MD 420 [place], [place] [address] 10/01/2023 2:00 PM CDT Virtual Visit [facility] [address] [place] [phone] Farzana Sabillon MD [address] [place] [address] 200 [place], [place] [address] 11/20/2023 11:00 AM CDT Office Visit [facility] [address] [place] [phone] Jean Guerin MD 6401 [place] [address] documented as of this encounter Visit Diagnoses Diagnosis Stage 4 very severe COPD by GOLD classification (H)- Primary documented in this encounter Additional Health Concerns Assessment Noted Time PHQ-9 Depression Total Score: 2 09/21/19 20 7:02 AM CDT documented as of this encounter Care Teams Language Interpreter Relationship Specialty Start Date End Date Mehreen Toussaint NP [facility] [address] [place] [address] PCP - General 03/07/23 [place] [address] [place] [address] Assigned Rheumatology Provider 02/26/20 Jean Guerin MD [address] [facility] [address] Assigned PCP 12/22/22 05/29/23 documented as of this encounter
--- OUTSIDE RECORDS SUMMARY | 2023-08-30 12:56 | XMS_ITS | Encounter Summary ---
Author Name Unknown Organization [place] Address [address] [place] [address] Care Team Providers Care Radiology Aide Name Role Phone Nilton Roach PA-C Primary Care Provider Betty Gupta MD Unavailable [phone] Keegan Mcdonald MD Unavailable [phone] Jean Guerin MD Unavailable [phone] Mehreen Toussaint NP Primary Care Provider Nilton Roach PA-C Unavailable [phone] Farzana Sabillon MD Unavailable [phone] Encounter Details Date Type Department Care Team (Late st Contact Info) Description 02/14/2023 [facility] [address] [address] [facility] Social History Tobacco Use Types Packs/Day Years Used Date Smoking Tobacco: Former Cigarettes 1 40 0 06/06/1979 - 06/06/2019 Smokeless Tobacco: Never Comments:Occasional Alcohol Use Standard Drinks/Week Comments No 0 (1 standard drink = 0.6 oz pur e alcohol) PHQ-2 Answer Date Recorded PHQ-2 Score 0 11/27/2022 Adolescent Education Answer Date Record ed Getting School Help Needed Not on file 01/25 Sex and Gender Information Value Date Recorded Sex Assigned at Female 04/23/2018 4:04 PM MOHS SURGEON Gender Identity Female 04/23/2018 4:04 PM MOHS SURGEON Sexual Orientation Straight 04/23/2018 4: 04 PM MOHS SURGEON documented as of this encounter Plan of Treatment Upcoming Encounters Date Type Department Care Team (Late st Contact Info) Description 09/13/2023 1:00 PM CDT Office Visit [facility] [place] [address] [place] [phone] Saroj Romeo MD 420 [place], [place] [address] 10/01/2023 2:00 PM CDT Virtual Visit [facility] [address] [place] [phone] Farzana Sabillon MD [address] [place] [address] 200 [place], [place] [address] 11/20/2023 11:00 AM CDT Office Visit [facility] [place] [address] [place] [phone] Jaen Guerin MD 6401 [place] [address] documented as of this encounter Visit Diagnoses Not on filedocumented in this encounter Additional Health Concerns Assessment Noted Time PHQ-9 Depression Total Score: 2 09/21/19 20 7:02 AM CDT documented as of this encounter Care Teams Radiology Aide Relationship Specialty Start Date End Date Nilton Roach PA-C 290 [facility] 100 [place] [address] PCP - General Physician Laborer Heading 01/02/17 03/06/23 Mehreen Toussaint NP [address] [address] PCP - General 03/07/23 [place] [address] [place] [address] Assigned Rheumatology Provider 02/26/20 [place] [address] [place] [address] Assigned Pulmonology Provider 12/30/21 05/03/23 Jean Guerin MD 6401 [facility] [place] [address] Assigned PCP 12/22/22 05/29/23 Nilton Roach PA-C [address] [place] [address] [place] [address] Assigned PCP 05/30/23 Farzana Sabillon MD [address] [place] [address] [place], [place] [address] Assigned Endocrinology Provider 08/27/23 documented as of this encounter
--- OUTSIDE RECORDS SUMMARY | 2023-08-30 12:56 | XMS_ITS | Encounter Summary ---
Author Name Unknown Organization [place] Address [address] [place] [address]. [place] [address] Care Team Providers Care Ethanol Operator Name Role Phone Betty Gupta MD Unavailable [phone] Mehreen Toussaint NP Primary Care Provider Nilton Roach PA-C Unavailable [phone] Reason for Visit * Reason Onset Date Comments Call To Schedule Appointment 06/06/2023 Encounter Details Date Type Department Care Team (Late st Contact Info) Description 06/06/2023 Telephone [facility] [address] [address] Jean Guerin MD [address] [facility] [place] [place] [address] Call To Schedule Appointment Social History Tobacco Use Types Packs/Day Years [...] Assigned at Female 04/23/2018 4:04 PM SUPERVISOR MOTOR VEHICLE ASSEMBLY Gender Identity Female 04/23/2018 4:04 PM SUPERVISOR MOTOR VEHICLE ASSEMBLY Sexual Orientation Straight 04/23/2018 4: 04 PM SUPERVISOR MOTOR VEHICLE ASSEMBLY documented as of this encounter Miscellaneous Notes * Telephone Encounter - Sabina Kwan - 06/06/2023 3:17 PM CST Called patient to schedule 6MWT for insurance purposes. She is scheduled for 06/10 and aware of appt date/location. RVISOR MOTOR VEHICLE ASSEMBLY documented in this encounter Plan of Treatment Upcoming Encounters Date Type Department Care Team (Late st Contact Info) Description 09/13/2023 1:00 PM CDT Office Visit [facility] [address] [facility] [address] [place] [address] Saroj Romeo MD 420 [place], [place] [address] 10/01/2023 2:00 PM CDT Virtual Visit [facility] [address] [place] [phone] Farzana Sabillon MD [address] [place] [address] [place] [address] [place], [place] [address] 11/20/2023 11:00 AM CDT Office Visit [facility] [place] 9[address] [place] [phone] Jean Guerin MD [address]01 [place] [address] documented as of this encounter Visit Diagnoses Not on filedocumented in this encounter Additional Health Concerns Assessment Noted Time PHQ-9 Depression Total Score: 2 09/21/19 20 7:02 AM CDT documented as of this encounter Care Teams Ethanol Operator Relationship Specialty Start Date End Date Mehreen Toussaint NP [address] [address] PCP - General 11/2/23 [place] [address] [facility] [place] [address] Assigned Rheumatology Provider 02/26/20 Nilton Roach PA-C 290 [facility] 100 [place] [address] Assigned PCP 05/30/23 documented as of this encounter
--- OUTSIDE RECORDS SUMMARY | 2023-08-30 12:56 | XMS_ITS | Encounter Summary ---
Author Name Unknown Organization [place] Address [address] [place] [address]. [place] [address] Care Team Providers Care Field Contact Technician Name Role Phone Betty Gupta MD Unavailable [phone] Mehreen Toussaint NP Primary Care Provider Nilton Roach PA-C Unavailable [phone] Encounter Details Date Type Department Care Team (Late st Contact Info) Description 06/06/2023 Telephone [facility] [address] [address] Jean Guerin MD [address] [facility] [place], [place] [address] Social History Tobacco Use Types Packs/Day Years [...] Sex Assigned at Female 04/23/2018 4:04 PM OPEN HEARTH HELPER Gender Identity Female 04/23/2018 4:04 PM OPEN HEARTH HELPER Sexual Orientation Straight 04/23/2018 4: 04 PM OPEN HEARTH HELPER documented as of this encounter Miscellaneous Notes * Telephone Encounter - Kayleen Cedillo RN - 06/06/2023 11:49 AM CST BILLY Durb[place], called clinic stating that patient is no longer using [facility] O2 services and has returned equipment a few months back due to not living within service area. Patient does not have contract with [facility], and [facility] only billed 8 months out of the 36 billable months. Patient should be able to use any company for O2 and have it covered. [employer]- [phone], please call with any questions. -Rosalia RN HEARTH HELPER documented in this encounter Plan of Treatment Upcoming Encounters Date Type Department Care Team (Late st Contact Info) Description 09/13/2023 1:00 PM CDT Office Visit [facility] [place] [address] [place] [address] 200 [place] [phone] Saroj Romeo MD 420 [place], [place] [address] 10/01/2023 2:00 PM CDT Virtual Visit [facility] [address] [facility] [address] [place] [address] Farzana Sabillon MD [address] [place] [address] 200 [place], [place] [address] 11/20/2023 11:00 AM CDT Office Visit [facility] [place] 909 [place] [phone] Jean Guerin MD 3531 [place], [place] [address] documented as of this encounter Visit Diagnoses Not on filedocumented in this encounter Additional Health Concerns Assessment Noted Time PHQ-9 Depression Total Score: 2 09/21/19 20 7:02 AM CDT documented as of this encounter Care Teams Field Contact Technician Relationship Specialty Start Date End Date Mehreen Toussaint NP [address] [address] PCP - General 03/07/23 [place] [address] [place] [address] Assigned Rheumatology Provider 02/26/20 Nilton Roach PA-C [address] [place] [address] Assigned PCP 05/30/23 documented as of this encounter
--- OUTSIDE RECORDS SUMMARY | 2023-08-30 12:56 | XMS_ITS | Encounter Summary ---
Author Name Unknown Organization [place] Address [address] [place] [address] Care Team Providers Care Sleeve Tailor Name Role Phone Betty Gupta MD Unavailable [phone] Keegan Mcdonald MD Unavailable [phone] Jean Guerin MD Unavailable [phone] Mehreen Toussaint NP Primary Care Provider Nilton Roach PA-C Unavailable Farzana Sabillon MD Unavailable Encounter Details Date Type Department Care Team (Late st Contact Info) Description 04/19/2023 MyC Medical Advice [facility] [address] [place] [address] Sultana Kim Social History Tobacco Use Types Packs/Day Years [...] Sex Assigned at Female 04/23/2018 4:04 PM MAPPING PILOT Gender Identity Female 04/23/2018 4:04 PM MAPPING PILOT Sexual Orientation Straight 04/23/2018 4: 04 PM MAPPING PILOT documented as of this encounter Plan of Treatment Upcoming Encounters Date Type Department Care Team (Late st Contact Info) Description 09/13/2023 1:00 PM CDT Office Visit [facility] [place] [address] [facility] [address] [place] [phone] Saroj Romeo MD [address] [place], [place] [address] 10/01/2023 2:00 PM CDT Virtual Visit [facility] [address] [place] [phone] Farzana Sabillon MD [address] [place] [address] [address] [place], [place] [address] 11/20/2023 11:00 AM CDT Office Visit [facility] [address] [phone] Jean Guerin MD 6401 [place] [address] documented as of this encounter Visit Diagnoses Not on filedocumented in this encounter Additional Health Concerns Assessment Noted Time PHQ-9 Depression Total Score: 2 09/21/19 20 7:02 AM CDT documented as of this encounter Care Teams Sleeve Tailor Relationship Specialty Start Date End Date Mehreen Toussaint NP [address] [address] PCP - General 03/07/23 [place] [address] [place] [address] Assigned Rheumatology Provider 02/26/20 [place] [address] [place] [address] Assigned Pulmonology Provider 12/30/21 05/03/23 Jean Guerin MD [address] [place] [address] Assigned PCP 12/22/22 05/29/23 Nilton Roach PA-C [address] [place] [address] [place] [address] Assigned PCP 05/30/23 Farzana Sabillon MD [address] 200 [place] [address] Assigned Endocrinology Provider 08/27/23 documented as of this encounter
--- OUTSIDE RECORDS SUMMARY | 2023-08-30 12:56 | XMS_ITS | Encounter Summary ---
Author Name Unknown Organization [facility] Address [address] [place] [address] Care Team Providers Care Dental Scheduler Name Role Phone Nilton Roach PA-C Primary Care Provider Nilton Roach PA-C Unavailable [phone] Betty Gupta MD Unavailable Gray Lora MD Unavailable [phone] Nik Bryan MD Unavailable Keegan Mcdonald MD Unavailable [phone] Keegan Mcdonald MD Unavailable Jean Guerin MD Unavailable [phone] Mehreen Toussaint NP Primary Care Provider Nilton Roach PA-C Unavailable [phone] Farzana Sabillon MD Unavailable [phone] Encounter Details Date Type Department Care Team (Late st Contact Info) Description 05/11/2021 [facility] [address], [address] [place] [address] Chana Barker Social History Tobacco Use Types Packs/Day Years Used Date Smoking Tobacco: Former Cigarettes 1 40 0 06/06/1979 - 06/06/2019 Smokeless Tobacco: Never Comments:Occasional Alcohol Use Standard Drinks/Week Comments No 0 (1 standard drink = 0.6 oz pur e alcohol) PHQ-2 Answer Date Recorded PHQ-2 Score 0 04/05/2021 Sex and Gender Information Value Date Recorded Sex Assigned at Female 04/23/2018 4:04 PM GLASS MAKER Gender Identity Female 04/23/2018 4:04 PM GLASS MAKER Sexual Orientation Straight 04/23/2018 4: 04 PM GLASS MAKER documented as of this encounter Plan of Treatment Upcoming Encounters Date Type Department Care Team (Late st Contact Info) Description 09/13/2023 1:00 PM CDT Office Visit [facility] [place] [address] [facility] [address] [place] [phone] Saroj Romeo MD 420 [place], [place] 15[address] 10/01/2023 2:00 PM CDT Virtual Visit [facility] [address] [place] [phone] Farzana Sabillon MD [address] 200 [place], [place] [address] 11/20/2023 11:00 AM CDT Office Visit [facility] [place] 909 [place] [phone] Jean Guerin MD 6401 [place], [place] 199375 documented as of this encounter Visit Diagnoses Not on filedocumented in this encounter Additional Health Concerns Assessment Noted Time PHQ-9 Depression Total Score: 2 09/21/19 20 7:02 AM CDT documented as of this encounter Care Teams Dental Scheduler Relationship Specialty Start Date End Date Nilton Roach PA-C [address] [place], [place] 468520 PCP - General Physician Fagoter 01/02/17 03/06/23 Mehreen Toussaint NP [address] [address] PCP - General 03/07/23 Nilton Roach PA-C [address] [place] [address] 100 [place] [address] Assigned PCP 12/13/16 12/21/22 [place] [address] [place] [address] Assigned Rheumatology Provider 02/26/20 Gray Lora MD [address] [place] [address] Assigned Pulmonology Provider 02/26/20 05/27/21 Nik Bryan MD [address] [place] [address] 588285 Assigned Cancer Care Provider 02/26/20 11/17/21 Keegan Mcdonald MD [address] [place] 953415 Assigned Pulmonology Provider 07/09/21 09/02/21 Keegan Mcdonald MD [address] [place] 536765 Assigned Pulmonology Provider 12/30/21 05/03/23 Jean Guerin MD [address] [place] [address] Assigned PCP 12/22/22 05/29/23 Nilton Roach PA-C [address] [place] [address] Assigned PCP 05/30/23 Farzana Sabillon MD [address] [place], [place] [address] Assigned Endocrinology Provider 08/27/23 documented as of this encounter
--- OUTSIDE RECORDS SUMMARY | 2023-08-30 12:56 | XMS_ITS | Encounter Summary ---
Author Name Unknown Organization [facility] Address [address] [place] [address] Care Team Providers Care Music Publisher Name Role Phone Betty Gupta MD Unavailable Mehreen Toussaint NP Primary Care Provider [phone] Nilton Roach PA-C Unavailable [phone] Encounter Details Date Type Department Care Team (Late st Contact Info) Description 06/06/2023 Telephone [facility] [address] [address] Marcelle Hopson RN Social History Tobacco Use Types Packs/Day [...] Sex Assigned at Female 04/23/2018 4:04 PM CORK INSULATOR HELPER Gender Identity Female 04/23/2018 4:04 PM CORK INSULATOR HELPER Sexual Orientation Straight 04/23/2018 4: 04 PM CORK INSULATOR HELPER documented as of this encounter Miscellaneous Notes * Telephone Encounter - Marcelle Hopson RN - 06/06/2023 12:07 PM CORK INSULATOR HELPER Patient stated she had influenza after visit with Dr. Connor on 05/22. she had a prednisone burst from her PCP (40mg x 5 days). She is still not feeling well - but she is going to see her PCP today. Patient is having issues with her Inogen machine. Her source of oxygen is an Inogen that she purchased after she returned her home oxygen equipment to [facility] in 2019 after she moved out of range for them. She does not have anything set up with an oxygen company. Sap Security Consultant called [employer] - confirmed they will be able to supply her with oxygen with new testing, order, and addended note. Sap Security Consultant sent message to Dr. Connor to see if he would like to order [id number] as well as ALANIS mentioned in his clinic visit note. INSULATOR HELPER documented in this encounter Plan of Treatment Upcoming Encounters Date Type Department Care Team (Late st Contact Info) Description 09/13/2023 1:00 PM CDT Office Visit [facility] [address] [phone] Saroj Romeo MD 420 [place], [place] [address] 10/01/2023 2:00 PM CDT Virtual Visit [facility] [address] [facility] [address] [place] [phone] Farzana Sabillon MD [address] 200 [place], [place] [address] 11/20/2023 11:00 AM CDT Office Visit [facility] [place] 909 [place] [phone] Jean Guerin MD 6401 [place] [address] documented as of this encounter Visit Diagnoses Not on filedocumented in this encounter Additional Health Concerns Assessment Noted Time PHQ-9 Depression Total Score: 2 09/21/19 20 7:02 AM CDT documented as of this encounter Care Teams Music Publisher Relationship Specialty Start Date End Date Mehreen Toussaint NP [address] [address] PCP - General 03/07/23 [place] [address] [place] [address] Assigned Rheumatology Provider 02/26/20 Nilton Roach PA-C [address] [place] [address] Assigned PCP 05/30/23 documented as of this encounter
--- OUTSIDE RECORDS SUMMARY | 2023-08-30 12:56 | XMS_ITS | Encounter Summary ---
Author Name Unknown Organization [facility] Address [address] [place] [address]. [place] [address] Care Team Providers Care Hair Spring Cutter Name Role Phone Betty Gupta MD Unavailable Jean Guerin MD Unavailable [phone] Mehreen oTussaint NP Primary Care Provider Encounter Details Date Type Department Care Team (Latest Contact Info) Description 05/22/2023 Travel Social History Tobacco Use Types Packs/Day [...] Sex Assigned at Female 04/23/2018 4:04 PM BRICKMASON CONTRACTOR Gender Identity Female 04/23/2018 4:04 PM BRICKMASON CONTRACTOR Sexual Orientation Straight 04/23/2018 4: 04 PM BRICKMASON CONTRACTOR documented as of this encounter Plan of Treatment Upcoming Encounters Date Type Department Care Team (Late st Contact Info) Description 09/13/2023 1:00 PM CDT Office Visit [facility] [address] [address] Saroj Romeo MD [address] [place] [address] 715575 10/01/2023 2:00 PM CDT Virtual Visit [facility] [address] [place] [phone] Farzana Sabillon MD [address] [place] [address] 11/20/2023 11:00 AM CDT Office Visit [facility] [address] [phone] Jean Guerin MD [address] [place] [address] documented as of this encounter Visit Diagnoses Not on filedocumented in this encounter Additional Health Concerns Assessment Noted Time PHQ-9 Depression Total Score: 2 09/21/19 20 7:02 AM CDT documented as of this encounter Care Teams Hair Spring Cutter Relationship Specialty Start Date End Date Mehreen Toussaint NP [address] [address] PCP - General 03/07/23 [place] [address] [place] [address] Assigned Rheumatology Provider 02/26/20 Jean Guerin MD [address] [place] [address] Assigned PCP 12/22/22 05/29/23 documented as of this encounter
--- OUTSIDE RECORDS SUMMARY | 2023-08-30 12:56 | XMS_ITS | Encounter Summary ---
Author Name Unknown Organization [facility] Address [address] [place] [address] Care Team Providers Care Mine Safety Director Name Role Phone Betty Gupta MD Unavailable Jean Guerin MD Unavailable [phone] Mehreen Toussaint NP Primary Care Provider Reason for Visit * Reason Comments Medication Refill Encounter Details Date Type Department Care Team (Late st Contact Info) Description 05/22/2023 Refill [facility] [address] [address] Jean Guerin MD [address] [place] [address] Medication Refill Social History Tobacco Use Types Packs/Day Years [...] Sex Assigned at Female 04/23/2018 4:04 PM MECHANICAL SYSTEMS DESIGNER Gender Identity Female 04/23/2018 4:04 PM MECHANICAL SYSTEMS DESIGNER Sexual Orientation Straight 04/23/2018 4: 04 PM MECHANICAL SYSTEMS DESIGNER documented as of this encounter Plan of Treatment Upcoming Encounters Date Type Department Care Team (Late st Contact Info) Description 09/13/2023 1:00 PM CDT Office Visit [facility] [place] [address] [facility] [address] [place] [phone] Saroj Romeo MD [address] [place], [place] [address] 10/01/2023 2:00 PM CDT Virtual Visit [facility] [address] [place] [phone] Farzana Sabillon MD [address] [place] [address] [address] [place], [place] [address] 11/20/2023 11:00 AM CDT Office Visit [facility] [address] [phone] Jean Guerin MD 6401 [place] [address] documented as of this encounter Visit Diagnoses Diagnosis Stage 4 very severe COPD by GOLD classification (H) documented in this encounter Additional Health Concerns Assessment Noted Time PHQ-9 Depression Total Score: 2 09/21/19 20 7:02 AM CDT documented as of this encounter Care Teams Mine Safety Director Relationship Specialty Start Date End Date Mehreen Toussaint NP [address] [address] PCP - General 03/07/23 [place] [address] [place] [address] Assigned Rheumatology Provider 02/26/20 Jean Guerin MD [address] [place], [place] [address] Assigned PCP 12/22/22 05/29/23 documented as of this encounter
--- OUTSIDE RECORDS SUMMARY | 2023-08-30 12:57 | XMS_ITS | Encounter Summary ---
Author Name Unknown Organization [facility] Address [address] [place] [address] Care Team Providers Care Cell Room Operator Name Role Phone Nilton Roach PA-C Primary Care Provider Nilton Roach PA-C Unavailable Betty Gupta MD Unavailable Gray Lora MD Unavailable [phone] Nik Bryan MD Unavailable Keegan Mcdonald MD Unavailable [phone] Keegan Mcdonald MD Unavailable Jean Guerin MD Unavailable Mehreen Toussaint NP Primary Care Provider Nilton Roach PA-C Unavailable Farzana Sabillon MD Unavailable [phone] Reason for Visit * Reason Onset Date Comments Immunization 01/17/2021 Encounter Details Date Type Department Care Team (Late st Contact Info) Description 01/17/2021 [facility] Adv[facility] [address] [facility] [address] [place] [phone] Nilton Roach PA-C [address] [place] [address] Immunization Social History Tobacco Use Types Packs/Day Years Used Date Smoking Tobacco: Former Cigarettes 1 40 0 06/06/1979 - 06/06/2019 Smokeless Tobacco: Never Comments:Occasional Alcohol Use Standard Drinks/Week Comments No 0 (1 standard drink = 0.6 oz pur e alcohol) PHQ-2 Answer Date Recorded PHQ-2 Score 0 12/07/2020 Sex and Gender Information Value Date Recorded Sex Assigned at Female 04/23/2018 4:04 PM SENIOR MANAGER Gender Identity Female 04/23/2018 4:04 PM SENIOR MANAGER Sexual Orientation Straight 04/23/2018 4: 04 PM SENIOR MANAGER COVID-19 Exposure Response Date Recorded In the last month, have you been in contact with someone who was confirmed or suspected to have Coronavirus / COVID-19? No / Unsure 01/10/2021 12:59 PM CDT documented as of this encounter Plan of Treatment Upcoming Encounters Date Type Department Care Team (Late st Contact Info) Description 09/13/2023 1:00 PM CDT Office Visit [facility] [address] [phone] Saroj Romeo MD 420 [place], [place] [address] 10/01/2023 2:00 PM CDT Virtual Visit [facility] [address] [place] [phone] Farzana Sabillon MD [address] [place] [address] 200 [place], [place] [address] 11/20/2023 11:00 AM CDT Office Visit [facility] [place] 909 [place] [address] Jean Guerin MD 6401 [place] [address] documented as of this encounter Visit Diagnoses Not on filedocumented in this encounter Additional Health Concerns Assessment Noted Time PHQ-9 Depression Total Score: 2 09/21/19 20 7:02 AM CDT documented as of this encounter Care Teams Cell Room Operator Relationship Specialty Start Date End Date Nilton Roach PA-C [address] [place] [address] PCP - General Physician Efficiency Clerk 01/02/17 03/06/23 Mehreen Toussaint, GURJIT [address] [address] PCP - General 03/07/23 Nilton Roach PA-C [address] [place] [address] Assigned PCP 12/13/16 12/21/22 [place] [address] [place] [address] Assigned Rheumatology Provider 02/26/20 Gray Lora MD [address] [place] [address]105 Assigned Pulmonology Provider 02/26/20 05/27/21 Nik Bryan MD [address] [place] [address] 656465 Assigned Cancer Care Provider 02/26/20 11/17/21 Keegan Mcdonald MD [address] [facility] [place] [address] Assigned Pulmonology Provider 07/09/21 09/02/21 Keegan Mcdonald MD [address] [place] [address] Assigned Pulmonology Provider 12/30/21 05/03/23 Jean Guerin MD [address] [place] [address] Assigned PCP 12/22/22 05/29/23 Nilton Roach PA-C [address] [facility] 100 [place] [address] Assigned PCP 05/30/23 Farzana Sabillon MD [address] 200 [place] [address] Assigned Endocrinology Provider 08/27/23 documented as of this encounter
--- OUTSIDE RECORDS SUMMARY | 2023-08-30 12:57 | XMS_ITS | Encounter Summary ---
Author Name Unknown Organization [facility] Address [address] [place] [address] Care Team Providers Care Fitness Instructor Name Role Phone Nilton Roach PA-C Primary Care Provider Nilton Roach PA-C Unavailable [phone] Nilton Roach PA-C Unavailable [phone] Betty Gupta MD Unavailable [phone] Gray Lora MD Unavailable [phone] Reginald Wen MD Unavailable [phone] Nik Bryan MD Unavailable Tracie Godinez MD Unavailable + [phone] Reginald Wen MD Unavailable [phone] Keegan Mcdonald MD Unavailable [phone] Keegan Mcdonald MD Unavailable [phone] Jean Guerin MD Unavailable [phone] Mehreen Toussaint NP Primary Care Provider Nilton Roach PA-C Unavailable [phone] Farzana Sabillon MD Unavailable [phone] Encounter Details Date Type Department Care Team (Late st Contact Info) Description 01/13/2018 [facility] Medical Advice [facility] Scheduling [address] [place], [place] [phone] EnriquesofiaSanderMilagro Greta Social History Tobacco Use Types Packs/Day Years Used Date Smoking Tobacco: Some Days Cigarettes Smokeless Tobacco: Never Comments:Occasional Alcohol Use Standard Drinks/Week Comments No 0 (1 standard drink = 0.6 oz pur e alcohol) Sex and Gender Information Value Date Recorded Sex Assigned at Female 04/23/2018 4:04 PM DUMPER Gender Identity Female 04/23/2018 4:04 PM DUMPER Sexual Orientation Straight 04/23/2018 4: 04 PM DUMPER documented as of this encounter Plan of Treatment Upcoming Encounters Date Type Department Care Team (Late st Contact Info) Description 09/13/2023 1:00 PM CDT Office Visit [facility] [place] [address] [facility] [address] [place] [phone] Saroj Romeo MD 420 [place], [place] [address] 10/01/2023 2:00 PM CDT Virtual Visit [facility] [address] [place] [phone] Farzana Sabillon MD [address] [place] [address] 200 [place], [place] [address] 11/20/2023 11:00 AM CDT Office Visit [facility] [address] [phone] Jean Guerin MD 6401 [place] [address] documented as of this encounter Visit Diagnoses Not on filedocumented in this encounter Additional Health Concerns Infection Onset Date Last Indicated Resolved Time Rule Out COVID-19 09/12/2020 09/12/2020 09/13/2020 5:31 PM CDT Assessment Noted Time PHQ-9 Depression Total Score: 3 12/14/19 18 2:01 PM CDT documented as of this encounter Care Teams Fitness Instructor Relationship Specialty Start Date End Date Nilton Roach PA-C [address] [address] PCP - General Physician Agriculture Intern 01/02/17 03/06/23 Nilton Roach PA-C [address] [place] [address] PCP - Assigned PCP 12/13/16 07/08/18 Mehreen Toussaint NP [address] [address] PCP - General 03/07/23 Nilton Roach PA-C [address] [place] [address] Assigned PCP 12/13/16 12/21/22 [place] [address] [facility] [place] [address] Assigned Rheumatology Provider 02/26/20 Gray Lora MD [address] [place] [address] Assigned Pulmonology Provider 02/26/20 05/27/21 Reginald Wen MD [address] [place] [address] [place] [address] Assigned Musculoskeletal Provider 05/29/20 07/19/20 Nik Bryan MD [address] [place] [address] Assigned Cancer Care Provider 02/26/20 11/17/21 Tracie Godinez MD 290 [facility] 100 [place] [address] Assigned Musculoskeletal Provider 05/22/20 05/28/20 Reginald Wen MD [address] [facility] [address] Assigned Musculoskeletal Provider 02/26/20 05/21/20 Keegan Mcdonald MD [address] [place] [address] Assigned Pulmonology Provider 07/09/21 09/02/21 Keegan Mcdonald MD [address] [place] [address] Assigned Pulmonology Provider 12/30/21 05/03/23 Jean Guerin MD [address] [place] [address] Assigned PCP 12/22/22 05/29/23 Nilton Roach PA-C [address] [place] [address] Assigned PCP 05/30/23 Farzana Sabillon MD [address] [facility] 200 [place], [place] [address] Assigned Endocrinology Provider 08/27/23 documented as of this encounter
--- OUTSIDE RECORDS SUMMARY | 2023-08-30 12:57 | XMS_ITS | Encounter Summary ---
Author Name Unknown Organization [facility] Address [address] [place] [address] Care Team Providers Care Inbound Customer Service Agent Name Role Phone Nilton Roach PA-C Primary Care Provider Nilton Roach PA-C Unavailable [phone] Nilton Roach PA-C Unavailable +[phone] Betty Gupta MD Unavailable Gray Lora MD Unavailable +[phone] Reginald Wen MD Unavailable +[phone] Nik Bryan MD Unavailable Tracie Godinez MD Unavailable + [phone] Reginald Wen MD Unavailable +[phone] Keegan Mcdonald MD Unavailable +[phone] Keegan Mcdonald MD Unavailable +[phone] Jean Guerin MD Unavailable + [phone] Mehreen Toussaint NP Primary Care Provider [phone] Nilton Roach PA-C Unavailable +[phone] Farzana Sabillon MD Unavailable +[phone] Reason for Visit * Reason Comments Medication Refill Encounter Details Date Type Department Care Team (Late st Contact Info) Description 03/17/2018 Refill [facility] [address] [place] [address] [place] [address] [place], [place] [address] Medication Refill Social History Tobacco Use Types Packs/Day Years Used Date Smoking Tobacco: Some Days Cigarettes Smokeless Tobacco: Never Comments:Occasional Alcohol Use Standard Drinks/Week Comments No 0 (1 standard drink = 0.6 oz pur e alcohol) Sex and Gender Information Value Date Recorded Sex Assigned at Female 04/23/2018 4:04 PM CANE STRIPPER Gender Identity Female 04/23/2018 4:04 PM CANE STRIPPER Sexual Orientation Straight 04/23/2018 4: 04 PM CANE STRIPPER documented as of this encounter Miscellaneous Notes * Telephone Encounter - Adrianne Garner RN - 03/18/2018 10:06 AM CANE STRIPPER Faxed refill request from: [facility] Medication requested: Plaquenil Prescription Written: 11/18/17, discontinued on 12/08/17 for allergic response Last qty: 60, one refill Pt's last office visit: 02/21/18 Next scheduled office visit: 05/21/18 Last ophthalmology visit: Per last note If she will be continued on Plaquenil 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 Called and left message for patient asking her to call back and confirm she is taking the Plaquenil. DBaALISE garrison ?? WBC Date Value Ref Range Status 12/08/2017 6.8 4.0 - 11.0 10e9/L Final RBC Count Date Value Ref Range Status 12/08/2017 4.85 3.8 - 5.2 10e12/L Final Hemoglobin Date Value Ref Range Status 12/08/2017 14.3 11.7 - 15.7 g/dL Final Hematocrit Date Value Ref Range Status 12/08/2017 43.8 35.0 - 47.0 % Final MCV Date Value Ref Range Status 12/08/2017 90 78 - 100 fl Final MCH Date Value Ref Range Status 12/08/2017 29.5 26.5 - 33.0 pg Final MCHC Date Value Ref Range Status 12/08/2017 32.6 31.5 - 36.5 g/dL Final RDW Date Value Ref Range Status 12/08/2017 13.5 10.0 - 15.0 % Final Platelet Count Date Value Ref Range Status 12/08/2017 278 150 - 450 10e9/L Final AST Date Value Ref Range Status 07/10/2017 20 0 - 45 U/L Final ALT Date Value Ref Range Status 07/10/2017 24 0 - 50 U/L Final Creatinine Date Value Ref Range Status 12/08/2017 0.74 0.52 - 1.04 mg/dL Final Albumin Date Value Ref Range Status 07/10/2017 3.7 3.4 - 5.0 g/dL Final STRIPPER documented in this encounter Plan of Treatment Upcoming Encounters Date Type Department Care Team (Late st Contact Info) Description 09/13/2023 1:00 PM CDT Office Visit [facility] [address] [phone] Saroj Romeo MD 420 [place], [place] [address] 10/01/2023 2:00 PM CDT Virtual Visit [facility] [address] [facility] [address] [place] [phone] Farzana Sabillon MD [address] 200 [place], [place] [address] 11/20/2023 11:00 AM CDT Office Visit [facility] [place] 909 [place] [phone] Jean Guerin MD 6401 [place] [address] documented as of this encounter Visit Diagnoses Diagnosis Systemic lupus erythematosus, unspecified SLE type, unspecified organ involvement status (H) documented in this encounter Additional Health Concerns Infection Onset Date Last Indicated Resolved Time Rule Out COVID-19 09/12/2020 09/12/2020 09/13/2020 5:31 PM CDT Assessment Noted Time PHQ-9 Depression Total Score: 3 12/14/19 18 2:01 PM CDT documented as of this encounter Care Teams Inbound Customer Service Agent Relationship Specialty Start Date End Date Nilton Roach PA-C [address] [address] PCP - General Physician Button Puncher 01/02/17 03/06/23 Nilton Roach PA-C [address] [address] PCP - Assigned PCP 12/13/16 07/08/18 Mehreen Toussaint NP [address] [address] PCP - General 03/07/23 Nilton Roach PA-C [address] [address] Assigned PCP 12/13/16 12/21/22 [place] [address] [facility] [place] [address] Assigned Rheumatology Provider 02/26/20 Gray Lora MD 909 [place], [place] [address] Assigned Pulmonology Provider 02/26/20 05/27/21 Reginald Wen MD 4000 [place] [address] Assigned Musculoskeletal Provider 05/29/20 07/19/20 Nik Bryan MD 909 [place] [address] Assigned Cancer Care Provider 02/26/20 11/17/21 Tracie Godinez MD [address] [address] Assigned Musculoskeletal Provider 05/22/20 05/28/20 Reginald Wen MD 4000 [place] [address] Assigned Musculoskeletal Provider 02/26/20 05/21/20 Keegan Mcdonald MD [address] [place] [address] Assigned Pulmonology Provider 07/09/21 09/02/21 Keegan Mcdonald MD [address] [place] [address] Assigned Pulmonology Provider 12/30/21 05/03/23 Jean Guerin MD 6401 [facility] [place] [address] Assigned PCP 12/22/22 05/29/23 Nilton Roach PA-C 290 [facility] 100 [place], [place] [address]60 Assigned PCP 05/30/23 Farzana Sabillon MD [address] [facility] 200 [place], [place] [address] Assigned Endocrinology Provider 08/27/23 documented as of this encounter
--- OUTSIDE RECORDS SUMMARY | 2023-08-30 12:57 | XMS_ITS | Encounter Summary ---
Author Name Unknown Organization [facility] Address [address] [place] [address] Care Team Providers Care Calender Wind Up Helper Name Role Phone Nilton Roach PA-C Primary Care Provider Nilton Roach PA-C Unavailable [phone] Betty Gupta MD Unavailable [phone] Gray Lora MD Unavailable +[phone] Reginald Wen MD Unavailable +[phone] Nik Bryan MD Unavailable Tracie Godinez MD Unavailable + [phone] Reginald Wen MD Unavailable +[phone] Keegan Mcdonald MD Unavailable [phone] Keegan Mcdonald MD Unavailable +[phone] Jean Guerin MD Unavailable + [phone] Mehreen Toussaint NP Primary Care Provider Nilton Roach PA-C Unavailable +[phone] Farzana Sabillon MD Unavailable +[phone] Reason for Visit * Reason Comments Medication Refill Encounter Details Date Type Department Care Team (Late st Contact Info) Description 01/12/[address] [place] [address] Nilton Roach PA-C [address] [place] [address] Medication Refill Social History Tobacco Use Types Packs/Day Years Used Date Smoking Tobacco: Former Cigarettes 1 40 0 06/06/1979 - 06/06/2019 Smokeless Tobacco: Never Comments:Occasional Alcohol Use Standard Drinks/Week Comments No 0 (1 standard drink = 0.6 oz pur e alcohol) PHQ-2 Answer Date Recorded PHQ-2 Score 0 05/14/2018 Sex and Gender Information Value Date Recorded Sex Assigned at Female 04/23/2018 4:04 PM FOREIGN FOOD SPECIALTY COOK Gender Identity Female 04/23/2018 4:04 PM FOREIGN FOOD SPECIALTY COOK Sexual Orientation Straight 04/23/2018 4: 04 PM FOREIGN FOOD SPECIALTY COOK COVID-19 Exposure Response Date Recorded In the last month, have you been in contact with someone who was confirmed or suspected to have Coronavirus / COVID-19? No / Unsure 12/31/2019 7:44 AM CDT documented as of this encounter Miscellaneous Notes * Telephone Encounter - Alex Mcgraw RN - 01/12/2020 7:30 PM CDT Pending Prescriptions: Disp Refills tiZANidine (ZANAFLEX) 2 MG tablet [Pharmac*180 ta*5 Sig: TAKE 1-2 TABS BY MOUTH 3 TIMES DAILY NEEDED FOR MUSCLE SPASMS Routing refill request to provider for review/approval because: Drug not on the [facility] refill protocol documented in this encounter Plan of Treatment Upcoming Encounters Date Type Department Care Team (Late st Contact Info) Description 09/13/2023 1:00 PM CDT Office Visit [facility] [address] 200 [place] [address] Saroj Romeo MD 420 [place] [address] 10/01/2023 2:00 PM CDT Virtual Visit [place] [address] [place] [phone] Farzana Sabillon MD [address] [facility] 200 [place] [address] 11/20/2023 11:00 AM CDT Office Visit [facility] and [address] [phone] Jean Guerin MD 6401 [facility] [place] [address] documented as of this encounter Visit Diagnoses Diagnosis Chronic bilateral low back pain with bilateral sciatica documented in this encounter Additional Health Concerns Infection Onset Date Last Indicated Resolved Time Rule Out COVID-19 09/12/2020 09/12/2020 09/13/2020 5:31 PM CDT Assessment Noted Time PHQ-9 Depression Total Score: 2 09/21/19 7:02 AM CDT documented as of this encounter Care Teams Calender Wind Up Helper Relationship Specialty Start Date End Date Nilton Roach PA-C [address] [place] [address] PCP - General Physician Dat Instructor 01/02/17 03/06/23 Mehreen Toussaint NP [address] [address] PCP - General 03/07/23 Nilton Roach PA-C [address] [place] [address] Assigned PCP 12/13/16 12/21/22 [place] [address] [facility] [address] Assigned Rheumatology Provider 02/26/20 Gray Lora MD [address] [place] [address] Assigned Pulmonology Provider 02/26/20 05/27/21 Reginald Wen MD 4000 [place] [address] Assigned Musculoskeletal Provider 05/29/20 07/19/20 Nik Bryan MD [address] [place] [address] Assigned Cancer Care Provider 02/26/20 11/17/21 Tracie Godinez MD [address] [place] [address] Assigned Musculoskeletal Provider 05/22/20 05/28/20 Reginald Wen MD [address] [place] [address] Assigned Musculoskeletal Provider 02/26/20 05/21/20 Keegan Mcdonald MD [address] [place] [address]85 Assigned Pulmonology Provider 07/09/21 09/02/21 Keegan Mcdonald MD [address] [place] [address] Assigned Pulmonology Provider 12/30/21 05/03/23 Jean Guerin MD [address] [place] [address] Assigned PCP 12/22/22 05/29/23 Nilton oRach PA-C 290 [facility] 100 [place], [place] [address] Assigned PCP 05/30/23 Farzana Sabillon MD [address] 200 [place], [place] [address] Assigned Endocrinology Provider 08/27/23 documented as of this encounter
--- OUTSIDE RECORDS SUMMARY | 2023-08-30 12:57 | XMS_ITS | Encounter Summary ---
Author Name Unknown Organization [facility] Address [address] [place] [address] Care Team Providers Care Inspector Set Up And Lay Out Name Role Phone Nilton Roach PA-C Primary Care Provider Nilton Roach PA-C Unavailable [phone] Betty Gupta MD Unavailable +[phone] Gray Lora MD Unavailable +[phone] Reginald Wen MD Unavailable +[phone] Nik Bryan MD Unavailable Tracie Godinez MD Unavailable + [phone] Reginald Wen MD Unavailable +[phone] Keegan Mcdonald MD Unavailable [phone] Keegan Mcdonald MD Unavailable [phone] Jean Guerin MD Unavailable + [phone] Mehreen Toussaint NP Primary Care Provider Nilton Roach PA-C Unavailable [phone] Farzana Sabillon MD Unavailable +[phone] Encounter Details Date Type Department Care Team (Late st Contact Info) Description 05/17/[address] [address] Nelida Aragon, CNC MACHINE SETTER Social History Tobacco Use Types Packs/Day Years Used Date Smoking Tobacco: Former Cigarettes 1 40 0 06/06/1979 - 06/06/2019 Smokeless Tobacco: Never Comments:Occasional Alcohol Use Standard Drinks/Week Comments No 0 (1 standard drink = 0.6 oz pur e alcohol) PHQ-2 Answer Date Recorded PHQ-2 Score 0 05/14/2018 Sex and Gender Information Value Date Recorded Sex Assigned at Female 04/23/2018 4:04 PM WIRE CUTTER Gender Identity Female 04/23/2018 4:04 PM WIRE CUTTER Sexual Orientation Straight 04/23/2018 4: 04 PM WIRE CUTTER documented as of this encounter Plan of Treatment Upcoming Encounters Date Type Department Care Team (Late st Contact Info) Description 09/13/2023 1:00 PM CDT Office Visit [facility] [place] [address] [place] [address] 200 [place] [phone] Saroj Romeo MD 420 [place], [place] [address] 10/01/2023 2:00 PM CDT Virtual Visit [facility] [address] [facility] [address] [place] [address] Farzana Sabillon MD [address] 200 [place], [place] [address] 11/20/2023 11:00 AM CDT Office Visit [facility] [address] [phone] Jean Guerin MD 6401 [place] [address] documented as of this encounter Visit Diagnoses Not on filedocumented in this encounter Additional Health Concerns Infection Onset Date Last Indicated Resolved Time Rule Out COVID-19 09/12/2020 09/12/2020 09/13/2020 5:31 PM CDT Assessment Noted Time PHQ-9 Depression Total Score: 2 09/21/19 7:02 AM CDT documented as of this encounter Care Teams Inspector Set Up And Lay Out Relationship Specialty Start Date End Date Nilton Roach PA-C [address] [address] PCP - General Physician Studio Model 01/02/17 03/06/23 Mehreen Toussaint NP [address] [address] PCP - General 03/07/23 Nilton Roach PA-C [address] [place] [address] Assigned PCP 12/13/16 12/21/22 [place] [address] [place] [address] Assigned Rheumatology Provider 02/26/20 Gray Lora MD [address] [place] [address] Assigned Pulmonology Provider 02/26/20 05/27/21 Reginald Wen MD [address] [place] [address] Assigned Musculoskeletal Provider 05/29/20 07/19/20 Nik Bryan MD [address] [place] [address] Assigned Cancer Care Provider 02/26/20 11/17/21 Tracie Godinez MD [address] [facility] 100 [place] [address] Assigned Musculoskeletal Provider 05/22/20 05/28/20 Reginald Wen MD [address] [place] [address] Assigned Musculoskeletal Provider 02/26/20 05/21/20 Keegan Mcdonald MD [address] [place] [address] Assigned Pulmonology Provider 07/09/21 09/02/21 Keegan Mcdonald MD [address] [place] [address] Assigned Pulmonology Provider 12/30/21 05/03/23 Jean Guerin MD 6401 [facility] [place] [address] Assigned PCP 12/22/22 05/29/23 Nilton Roach PA-C 290 [facility] 100 [place] [address] Assigned PCP 05/30/23 Farzana Sabillon MD [address] 200 [place] [address] Assigned Endocrinology Provider 08/27/23 documented as of this encounter
--- OUTSIDE RECORDS SUMMARY | 2023-08-30 12:57 | XMS_ITS | Encounter Summary ---
Author Name Unknown Organization [facility] Address [address] [place] [address] Care Team Providers Care Coronary Care Unit Nurse Name Role Phone Nilton Roach PA-C Primary Care Provider Nilton Roach PA-C Unavailable [phone] Nilton Roach PA-C Unavailable [phone] Betty Gupta MD Unavailable Grya Lora MD Unavailable +[phone] Reginald Wen MD Unavailable +[phone] Nik Bryan MD Unavailable Tracie Godinez MD Unavailable + [phone] Reginald Wen MD Unavailable +[phone] Keegan Mcdonald MD Unavailable +[phone] Keegan Mcdonald MD Unavailable +[phone] Jean Guerin MD Unavailable + [phone] Mehreen Toussaint NP Primary Care Provider [phone] Nilton Roach PA-C Unavailable [phone] Farzana Sabillon MD Unavailable +[phone] Reason for Visit * Reason Onset Date Comments Refill Request 10/13/2017 Ipratropium Encounter Details Date Type Department Care Team (Late st Contact Info) Description 10/13/2017 MyC Refill [facility] [address] [facility] [place] [address] Robin Espinal MD Refill Request (Ipratropium) Social History Tobacco Use Types Packs/Day Years Used Date Smoking Tobacco: Some Days Cigarettes Smokeless Tobacco: Never Comments:Occasional Alcohol Use Standard Drinks/Week Comments No 0 (1 standard drink = 0.6 oz pur e alcohol) Sex and Gender Information Value Date Recorded Sex Assigned at Female 04/23/2018 4:04 PM FILM CRITIC Gender Identity Female 04/23/2018 4:04 PM FILM CRITIC Sexual Orientation Straight 04/23/2018 4: 04 PM FILM CRITIC documented as of this encounter Miscellaneous Notes * Telephone Encounter - Sandi Garcia RN - 10/14/2017 2:20 PM CDT Ipratropium Prescription approved per [facility] Refill Protocol. Sandi Garcia RN, BSN * Telephone Encounter - Hortensia Hardy MA - 10/14/2017 8:03 AM CDTMessage from MyChart: Original authorizing provider: MD Keila Prater would like a refill of the following medications: ipratropium - albuterol 0.5 mg/2.5 mg/3 mL (DUONEB) 0.5-2.5 (3) MG/3ML neb solution [Robin Espinal MD] Preferred pharmacy: [facility] [address] [place] [facility] [address] [place] Comment: Medication renewals requested in this message routed to other providers: albuterol (PROAIR HFA/PROVENTIL HFA/VENTOLIN HFA) 108 (90 BASE) MCG/ACT Inhaler [Nilton Roach PA-C] documented in this encounter Plan of Treatment Upcoming Encounters Date Type Department Care Team (Late Contact Info) Description 09/13/2023 1:00 PM CDT Office Visit [facility] [place] [address] [facility] [address] [place] [phone] Saroj Romeo MD [address] [place] [address] 10/01/2023 2:00 PM CDT Virtual Visit [facility] [address] [place] [phone] Farzana Sabillon MD [address] 200 [place] [address] 11/20/2023 11:00 AM CDT Office Visit [facility] 909 [place] [phone] Jean Guerin MD 6401 [place] [address] documented as of this encounter Visit Diagnoses Diagnosis COPD exacerbation (H) Obstructive chronic bronchitis with exacerbation documented in this encounter Additional Health Concerns Infection Onset Date Last Indicated Resolved Time Rule Out COVID-19 09/12/2020 09/12/2020 09/13/2020 5:31 PM CDT documented as of this encounter Care Teams Coronary Care Unit Nurse Relationship Specialty Start Date End Date Nilton Roach PA-C [address] [address] PCP - General Physician Shuttleless Loom Weaver 01/02/17 03/06/23 Nilton Roach PA-C [address] [address] PCP - Assigned PCP 12/13/16 07/08/18 Mehreen Toussaint NP [address] [place] [address] PCP - General 03/07/23 Nilton Roach PA-C [address] [address] Assigned PCP 12/13/16 12/21/22 [place] [address] 99 [place] [address] Assigned Rheumatology Provider 02/26/20 Gray Lora MD [address] [place] [address] Assigned Pulmonology Provider 02/26/20 05/27/21 Reginald Wen MD 4000 [place], [place] [address] Assigned Musculoskeletal Provider 05/29/20 07/19/20 Nik Bryan MD [address] [place] [address] Assigned Cancer Care Provider 02/26/20 11/17/21 Tracie Godinez MD [address] [address] Assigned Musculoskeletal Provider 05/22/20 05/28/20 Reginald Wen MD 4000 [place], [place] [address] Assigned Musculoskeletal Provider 02/26/20 05/21/20 Keegan Mcdonald MD [address]01 [place] [address] Assigned Pulmonology Provider 07/09/21 09/02/21 Keegan Mcdonald MD [address] [place] [address] Assigned Pulmonology Provider 12/30/21 05/03/23 Jean Guerin MD [address] [place] [address] Assigned PCP 12/22/22 05/29/23 Nilton Roach PA-C [address] [place] [address] 100 [place] [address] Assigned PCP 05/30/23 Farzana Sabillon MD [address] 200 [place] [address] Assigned Endocrinology Provider 08/27/23 documented as of this encounter
--- OUTSIDE RECORDS SUMMARY | 2023-08-30 12:57 | XMS_ITS | Encounter Summary ---
Author Name Unknown Organization [facility] Address [address] [place] [address] Care Team Providers Care Middle School Science Teacher Name Role Phone Nilton Roach PA-C Primary Care Provider Nilton Roach PA-C Unavailable +[phone] Betty Gupta MD Unavailable [phone] Gray Lora MD Unavailable [phone] Nik Bryan MD Unavailable Keegan Mcdonald MD Unavailable [phone] Keegan Mcdonald MD Unavailable Jean Guerin MD Unavailable +[phone] Mehreen Toussaint NP Primary Care Provider [phone] Nilton Roach PA-C Unavailable [phone] Farzana Sabillon MD Unavailable +[phone] Encounter Details Date Type Department Care Team (Late st Contact Info) Description 08/14/2020 Documentation Only INTERFACED REPORT Unknown, Provider Social History Tobacco Use Types Packs/Day Years Used Date Smoking Tobacco: Former Cigarettes 1 40 0 06/06/1979 - 06/06/2019 Smokeless Tobacco: Never Comments:Occasional Alcohol Use Standard Drinks/Week Comments No 0 (1 standard drink = 0.6 oz pur e alcohol) PHQ-2 Answer Date Recorded PHQ-2 Score 0 08/05/2020 Sex and Gender Information Value Date Recorded Sex Assigned at Female 04/23/2018 4:04 PM CONTRACT TECHNICIAN Gender Identity Female 04/23/2018 4:04 PM CONTRACT TECHNICIAN Sexual Orientation Straight 04/23/2018 4: 04 PM CONTRACT TECHNICIAN COVID-19 Exposure Response Date Recorded In the last month, have you been in contact with someone who was confirmed or suspected to have Coronavirus / COVID-19? No / Unsure 08/05/2020 8:05 AM CDT documented as of this encounter Plan of Treatment Upcoming Encounters Date Type Department Care Team (Late st Contact Info) Description 09/13/2023 1:00 PM CDT Office Visit [facility] [place] [address] [facility] [address] [place] [phone] Saroj Romeo MD 420 [facility] [place], [place] [address] 10/01/2023 2:00 PM CDT Virtual Visit [facility] [address] [place] [phone] Farzana Sabillon MD [address] [place] [address] 200 [place], [place] [address] 11/20/2023 11:00 AM CDT Office Visit [facility] [place] 909 [place] [phone] Jean Guerin MD 6401 [place] [address] documented as of this encounter Visit Diagnoses Not on filedocumented in this encounter Additional Health Concerns Infection Onset Date Last Indicated Resolved Time Rule Out COVID-19 09/12/2020 09/12/2020 09/13/2020 5:31 PM CDT Assessment Noted Time PHQ-9 Depression Total Score: 2 09/21/19 20 7:02 AM CDT documented as of this encounter Care Teams Middle School Science Teacher Relationship Specialty Start Date End Date Nilton Roach PA-C [address] [place] [address] PCP - General Physician Functional Support Analyst 01/02/17 03/06/23 Mehreen Toussaint NP [address] [address] PCP - General 03/07/23 Nilton Roach PA-C [address] [place] [address] Assigned PCP 12/13/16 12/21/22 [place] [address] [place] [address] Assigned Rheumatology Provider 02/26/20 Gray Lora MD 9 [place], [place] [address] Assigned Pulmonology Provider 02/26/20 05/27/21 Nik Bryan MD 9 [place], [place] [address] Assigned Cancer Care Provider 02/26/20 11/17/21 Keegan Mcdonald MD [address] [place] [address] Assigned Pulmonology Provider 07/09/21 09/02/21 Keegan Mcdonald MD [address] [place] [address] Assigned Pulmonology Provider 12/30/21 05/03/23 Jean Guerin MD [address]01 [place] [address] Assigned PCP 12/22/22 05/29/23 Nilton Roach PA-C [address] [place] [address] Assigned PCP 05/30/23 Farzana Sabillon MD [address] [place] [address] Assigned Endocrinology Provider 08/27/23 documented as of this encounter
--- OUTSIDE RECORDS SUMMARY | 2023-08-30 12:57 | XMS_ITS | Encounter Summary ---
Author Name Unknown Organization [facility] Address [address] [place] [address] Care Team Providers Care Volunteer Firefighter Name Role Phone Nilton Roach PA-C Primary Care Provider Nilton Roach PA-C Unavailable [phone] Betty Gupta MD Unavailable +[phone] Gray Lora MD Unavailable +[phone] Reginald Wen MD Unavailable [phone] Nik Bryan MD Unavailable Tracie Godinez MD Unavailable + [phone] Reginald Wen MD Unavailable +[phone] Keegan Mcdonald MD Unavailable +[phone] Keegan Mcdonald MD Unavailable +[phone] Jean Guerin MD Unavailable + [phone] Mehreen Toussaint NP Primary Care Provider Nilton Roach PA-C Unavailable +[phone] Farzana Sabillon MD Unavailable +[phone] Encounter Details Date Type Department Care Team (Late st Contact Info) Description 08/17/2019 [facility] [address] [place] [address] Nilton Roach PA-C 290 [facility] 100 [place], [place] 7[address] Social History Tobacco Use Types Packs/Day Years Used Date Smoking Tobacco: Some Days Cigarettes 1 40 Smokeless Tobacco: Never Comments:Occasional Alcohol Use Standard Drinks/Week Comments No 0 (1 standard drink = 0.6 oz pur e alcohol) PHQ-2 Answer Date Recorded PHQ-2 Score 0 05/14/2018 Sex and Gender Information Value Date Recorded Sex Assigned at Female 04/23/2018 4:04 PM SHEET METAL MECHANIC Gender Identity Female 04/23/2018 4:04 PM SHEET METAL MECHANIC Sexual Orientation Straight 04/23/2018 4: 04 PM SHEET METAL MECHANIC COVID-19 Exposure Response Date Recorded In the last month, have you been in contact with someone who was confirmed or suspected to have Coronavirus / COVID-19? No / Unsure 08/07/2019 11:10 AM CDT documented as of this encounter Plan of Treatment Upcoming Encounters Date Type Department Care Team (Late st Contact Info) Description 09/13/2023 1:00 PM CDT Office Visit [facility] [address] [phone] Saroj Romeo MD 420 [place], [place] [address] 10/01/2023 2:00 PM CDT Virtual Visit [facility] [address] [place] [phone] Farzana Sabillon MD [address] 200 [place], [place] [address] 11/20/2023 11:00 AM CDT Office Visit [facility] [place] 909 [place] [phone] Jean Guerin MD 6401 [place], [place] [address] documented as of this encounter Visit Diagnoses Not on filedocumented in this encounter Additional Health Concerns Infection Onset Date Last Indicated Resolved Time Rule Out COVID-19 09/12/2020 09/12/2020 09/13/2020 5:31 PM CDT Assessment Noted Time PHQ-9 Depression Total Score: 1 05/30/19 20 7:03 AM SHEET METAL MECHANIC documented as of this encounter Care Teams Volunteer Firefighter Relationship Specialty Start Date End Date Nilton Roach PA-C [address] [place] [address] PCP - General Physician Cargo Service Supervisor 01/02/17 03/06/23 Mehreen Toussaint NP [address] [address] PCP - General 03/07/23 Nilton Roach PA-C [address] [address] Assigned PCP 12/13/16 12/21/22 [place] [address] [place] [address] Assigned Rheumatology Provider 02/26/20 Gray Lora MD 909 [place] [address] Assigned Pulmonology Provider 02/26/20 05/27/21 Reginald Wen MD [address] [place] [address] Assigned Musculoskeletal Provider 05/29/20 07/19/20 Nik Bryan MD 909 [place] [address] Assigned Cancer Care Provider 02/26/20 11/17/21 Tracie Godinez MD [address] [facility] [address] 100 [place] [address] Assigned Musculoskeletal Provider 05/22/20 05/28/20 Reginald Wen MD [address] [facility], [place] [address] Assigned Musculoskeletal Provider 02/26/20 05/21/20 Keegan Mcdonald MD [address] [place] [address] Assigned Pulmonology Provider 07/09/21 09/02/21 Keegan Mcdonald MD [address] [place] [address] Assigned Pulmonology Provider 12/30/21 05/03/23 Jean Guerin MD [address] [place] [address] Assigned PCP 12/22/22 05/29/23 Nilton Roach PA-C [address] [facility] 100 [place] [address] Assigned PCP 05/30/23 Farzana Sabillon MD [address] 200 [place] [address] Assigned Endocrinology Provider 08/27/23 documented as of this encounter
--- OUTSIDE RECORDS SUMMARY | 2023-08-30 12:57 | XMS_ITS | Encounter Summary ---
Author Name Unknown Organization [facility] Address [address] [place] [address]. [place] [address] Care Team Providers Care Meter Tester Polyphase Name Role Phone Nilton Roach PA-C Primary Care Provider Nilton Roach PA-C Unavailable Betty Gupta MD Unavailable [phone] Gray Lora MD Unavailable [phone] Nik Bryan MD Unavailable Keegan Mcdonald MD Unavailable [phone] Keegan Mcdonald MD Unavailable +[phone] Jean Guerin MD Unavailable Mehreen Toussaint NP Primary Care Provider Nilton Roach PA-C Unavailable [phone] Farzana Sabillon MD Unavailable +[phone] Reason for Referral * Consultation (Routine) - Closed Specialty Diagnoses / Procedures Referred By Ramsey arias Referred To Contact Ophthalmology Diagnoses Long-[place] [address] [place] [address] Mg Oph [address] [place] [phone] Referral ID Status Reason Start Date Expiration Date Visits Re quested Visits Authorized [id number] Closed 10/18/2020 10/18/2021 1 1 Question Answer Referral Type: Optometry/Ophthalmology Reason for Referral: Other My Clinical Question Is: Plaquenil toxicity screening Preferred Locations: [facility] Scheduling Instructions: [facility] will call you to coordinate your care as prescribed by the provider. If you don? t hear from a field marketing representative within 2 business days, please call the number listed above. Comments Please be aware that coverage of these services is subject to the terms and limitations of your health insurance plan. Call member services at your health plan with any benefit or coverage questions. [facility] will call you to coordinate your care as prescribed by the provider. If you don? t hear from a field marketing representative within 2 business days, please call the number listed above. Encounter Details Date Type Department Care Team (Late Contact Info) Description 10/18/2020 [facility] [address] [phone] Betty Gupta MD [address] [place] [address] Long-term use of Plaquenil (Primary Dx) Social History Tobacco Use Types Packs/Day Years Used Date Smoking Tobacco: Former Cigarettes 1 40 0 06/06/1979 - 06/06/2019 Smokeless Tobacco: Never Comments:Occasional Alcohol Use Standard Drinks/Week Comments No 0 (1 standard drink = 0.6 oz pur e alcohol) PHQ-2 Answer Date Recorded PHQ-2 Score 0 08/05/2020 Sex and Gender Information Value Date Recorded Sex Assigned at Female 04/23/2018 4:04 PM DIE STORAGE WORKER Gender Identity Female 04/23/2018 4:04 PM DIE STORAGE WORKER Sexual Orientation Straight 04/23/2018 4: 04 PM DIE STORAGE WORKER documented as of this encounter Plan of Treatment Upcoming Encounters Date Type Department Care Team (Late Contact Info) Description 09/13/2023 1:00 PM CDT Office Visit [facility] [address] [address] Saroj Romeo MD [address] [place] [address] 10/01/2023 2:00 PM CDT Virtual Visit [facility] [address] [place] [phone] Farzana Sabillon MD [address] [address] 200 [place] [address] 11/20/2023 11:00 AM CDT Office Visit [facility] 909 [place] [phone] Jean Guerin MD [address] [place] [address] Scheduled Referrals Name Type Priority Associated Diagnoses Orde r Schedule EYE ADULT REFERRAL Referral Routine Long-term use of Plaquenil Expected: 10/18/2020, Expires: 10/18/2021 documented as of this encounter Visit Diagnoses Diagnosis Long-term use of Plaquenil- Primary documented in this encounter Additional Health Concerns Assessment Noted Time PHQ-9 Depression Total Score: 2 09/21/19 20 7:02 AM CDT documented as of this encounter Care Teams Meter Tester Polyphase Relationship Specialty Start Date End Date Nilton Roach PA-C 290 [facility] 100 [place] [address] PCP - General Physician Tab Cutter 01/02/17 03/06/23 Mehreen Toussaint NP [address] [address] PCP - General 03/07/23 Nilton Roach PA-C 290 [facility] 100 [place] [address] Assigned PCP 12/13/16 12/21/22 [place] [address] [place] [address] Assigned Rheumatology Provider 02/26/20 Gray Lora MD [address] [place] [address] Assigned Pulmonology Provider 02/26/20 05/27/21 Nik Bryan MD [address] [place] [address] Assigned Cancer Care Provider 02/26/20 11/17/21 Keegan Mcdonald MD [address] [place] [address] Assigned Pulmonology Provider 07/09/21 09/02/21 Keegan Mcdonald MD [address] [place] [address] Assigned Pulmonology Provider 12/30/21 05/03/23 Jean Guerin MD [address] [place] [address] Assigned PCP 12/22/22 05/29/23 Nilton Roach PA-C 290 [facility] 100 [place] [address] Assigned PCP 05/30/23 Farzana Sabillon MD [address] [place] 200 [place] [address] Assigned Endocrinology Provider 08/27/23 documented as of this encounter
--- OUTSIDE RECORDS SUMMARY | 2023-08-30 12:57 | XMS_ITS | Encounter Summary ---
Author Name Unknown Organization [facility] Address [address] [place] [address] Care Team Providers Care Cooper Helper Name Role Phone Nilton Roach PA-C Primary Care Provider Nilton Roach PA-C Unavailable [phone] Nilton Roach PA-C Unavailable [phone] Betty Gupta MD Unavailable Gray Lora MD Unavailable +[phone] Reginald Wen MD Unavailable +[phone] Nik Bryan MD Unavailable Tracie Godinez MD Unavailable + [phone] Reginald Wen MD Unavailable +[phone] Keegan Mcdonald MD Unavailable +[phone] Keegan Mcdonald MD Unavailable +[phone] Jean Guerin MD Unavailable + [phone] Mehreen Toussaint NP Primary Care Provider Nilton Roach PA-C Unavailable [phone] Farzana Sabillon MD Unavailable +[phone] Reason for Visit * Reason Comments Medication Refill Duoneb Encounter Details Date Type Department Care Team (Late st Contact Info) Description 04/24/2018 Refill [facility] 290 [facility] [address] [place] [phone] Nilton Roach PA-C 290 [facility] [address] 100 [place] [address] Medication Refill (Duoneb) Social History Tobacco Use Types Packs/Day Years Used Date Smoking Tobacco: Former Cigarettes Smokeless Tobacco: Never Comments:Occasional Alcohol Use Standard Drinks/Week Comments No 0 (1 standard drink = 0.6 oz pur e alcohol) Sex and Gender Information Value Date Recorded Sex Assigned at Female 04/23/2018 4:04 PM CONTENT ENGINEER Gender Identity Female 04/23/2018 4:04 PM CONTENT ENGINEER Sexual Orientation Straight 04/23/2018 4: 04 PM CONTENT ENGINEER documented as of this encounter Miscellaneous Notes * Telephone Encounter - Nilton Roach PA-C - 04/24/2018 5:21 PM CONTENT ENGINEER Refills sent. Nilton Roach PA-C ENT ENGINEER * Telephone Encounter - Sandi Garcia RN - 04/24/2018 1:54 PM CST Duoneb Routing refill request to provider for review/approval because: Prescribed for Acute bronchitis and COPD exacerbation Sandi Garcia RN, BSN ENT ENGINEER documented in this encounter Plan of Treatment Upcoming Encounters Date Type Department Care Team (Late st Contact Info) Description 09/13/2023 1:00 PM CDT Office Visit [facility] [address] [place] [address] Saroj Romeo MD [address] [place] [address] 10/01/2023 2:00 PM CDT Virtual Visit [place] [address] [place] [phone] Farzana Sabillon MD [address] [facility] 200 [place] [address] 11/20/2023 11:00 AM CDT Office Visit [facility] [address] [phone] Jean Guerin MD [address] [place] [address] documented as of this encounter Visit Diagnoses Diagnosis Simple chronic bronchitis (H)- Primary Simple chronic bronchitis documented in this encounter Additional Health Concerns Infection Onset Date Last Indicated Resolved Time Rule Out COVID-19 09/12/2020 09/12/2020 09/13/2020 5:31 PM CDT Assessment Noted Time PHQ-9 Depression Total Score: 3 12/14/19 18 2:01 PM CDT documented as of this encounter Care Teams Cooper Helper Relationship Specialty Start Date End Date Nilton Roach PA-C [address] [address] PCP - General Physician Import/Export Agent 01/02/17 03/06/23 Nilton Roach PA-C [address] [address] PCP - Assigned PCP 12/13/16 07/08/18 Mehreen Toussaint NP [address] [address] PCP - General 03/07/23 Nilton Roach PA-C [address] [address] Assigned PCP 12/13/16 12/21/22 [place] [address] 99 [place] [address] Assigned Rheumatology Provider 02/26/20 Gray Lora MD [address] [place] [address] Assigned Pulmonology Provider 02/26/20 05/27/21 Reginald Wen MD 4000 [place], [place] [address]461 Assigned Musculoskeletal Provider 05/29/20 07/19/20 Nik Bryan MD [address] [place] [address] Assigned Cancer Care Provider 02/26/20 11/17/21 Tracie Godinez MD [address] [place] [address] Assigned Musculoskeletal Provider 05/22/20 05/28/20 Reginald Wen MD 4000 [place], [place] 6[address]241 Assigned Musculoskeletal Provider 02/26/20 05/21/20 Keegan Mcdonald MD [address] [place] [address] Assigned Pulmonology Provider 07/09/21 09/02/21 Keegan Mcdonald MD [address] [place] [address] Assigned Pulmonology Provider 12/30/21 05/03/23 Jean Guerin MD [address] [place] [address] Assigned PCP 12/22/22 05/29/23 Nilton Roach PA-C [address] 100 [place] [address] Assigned PCP 05/30/23 Farzana Sabillon MD [address] 200 [place], [place] [address] Assigned Endocrinology Provider 08/27/23 documented as of this encounter
--- OUTSIDE RECORDS SUMMARY | 2023-08-30 12:57 | XMS_ITS | Encounter Summary ---
Author Name Unknown Organization [facility] Address [address] [place] [address] Care Team Providers Care On Line Csr Name Role Phone Nilton Roach PA-C Primary Care Provider Nilton Roach PA-C Unavailable [phone] Nilton Roach PA-C Unavailable [phone] Betty Gupta MD Unavailable Gray Lora MD Unavailable +[phone] Reginald Wen MD Unavailable [phone] Nik Bryan MD Unavailable Tracie Godinez MD Unavailable + [phone] Reginald Wen MD Unavailable +[phone] Keegan Mcdonald MD Unavailable [phone] Keegan Mcdonald MD Unavailable [phone] Jean Guerin MD Unavailable + [phone] Mehreen Toussaint NP Primary Care Provider Nilton Roach PA-C Unavailable +[phone] Farzana Sabillon MD Unavailable +[phone] Encounter Details Date Type Department Care Team (Late st Contact Info) Description 09/23/2017 [facility] [address] [place] [phone] Crispin [facility] Social History Tobacco Use Types Packs/Day Years Used Date Smoking Tobacco: Some Days Cigarettes Smokeless Tobacco: Never Comments:Occasional Alcohol Use Standard Drinks/Week Comments No 0 (1 standard drink = 0.6 oz pur e alcohol) Sex and Gender Information Value Date Recorded Sex Assigned at Female 04/23/2018 4:04 PM TENTER FRAME BACK TENDER Gender Identity Female 04/23/2018 4:04 PM TENTER FRAME BACK TENDER Sexual Orientation Straight 04/23/2018 4: 04 PM TENTER FRAME BACK TENDER documented as of this encounter Plan of Treatment Upcoming Encounters Date Type Department Care Team (Late st Contact Info) Description 09/13/2023 1:00 PM CDT Office Visit [facility] [place] [address] [facility] [address] [place] [phone] Saroj Romeo MD 420 [place], [place] [address] 10/01/2023 2:00 PM CDT Virtual Visit [facility] [address] [place] [phone] Farzana Sabillon MD [address] [place] [address] [address] [place], [place] [address] 11/20/2023 11:00 AM CDT Office Visit [facility] [place] [address] [place] [phone] Jean Guerin MD 6401 [place], [place] [address] documented as of this encounter Visit Diagnoses Not on filedocumented in this encounter Additional Health Concerns Infection Onset Date Last Indicated Resolved Time Rule Out COVID-19 09/12/2020 09/12/2020 09/13/2020 5:31 PM CDT documented as of this encounter Care Teams On Line Csr Relationship Specialty Start Date End Date Nilton Roach PA-C [address] [address] PCP - General Physician Breakfast Hostess 01/02/17 03/06/23 Nilton Roach PA-C [address] [address] PCP - Assigned PCP 12/13/16 07/08/18 Mehreen Toussaint, GURJIT [address] [address] PCP - General 03/07/23 Nilton Roach PA-C [address] [address] Assigned PCP 12/13/16 12/21/22 [place] [address] [facility] [place], [place] [address] Assigned Rheumatology Provider 02/26/20 Gray Lora MD [address] [place] [address] 519765 Assigned Pulmonology Provider 02/26/20 05/27/21 Reginald Wen MD [address] [place], [place] [address] Assigned Musculoskeletal Provider 05/29/20 07/19/20 Nik Bryan MD [address] [place] [address] 672525 Assigned Cancer Care Provider 02/26/20 11/17/21 Tracie Godinez MD [address] [facility] [facility] 100 [place] [address] Assigned Musculoskeletal Provider 05/22/20 05/28/20 Reginald Wen MD 4000 [place], [place] [address]171 Assigned Musculoskeletal Provider 02/26/20 05/21/20 Keegan Mcdonald MD [address] [place] 221805 Assigned Pulmonology Provider 07/09/21 09/02/21 Keegan Mcdonald MD [address] [place] 219945 Assigned Pulmonology Provider 12/30/21 05/03/23 Jean Guerin MD [address] [place] [address] Assigned PCP 12/22/22 05/29/23 Nilton Roach PA-C 290 [facility] 100 [place] [address] Assigned PCP 05/30/23 Farzana Sabillon MD [address] [facility] 200 [place], [place] [address] Assigned Endocrinology Provider 08/27/23 documented as of this encounter
--- OUTSIDE RECORDS SUMMARY | 2023-08-30 12:57 | XMS_ITS | Encounter Summary ---
Author Name Unknown Organization [facility] Address [address] [place] [address] Care Team Providers Care Congressional Assistant Name Role Phone Nilton Roach PA-C Primary Care Provider Nilton Roach PA-C Unavailable [phone] Betty Gupta MD Unavailable [phone] Gray Lora MD Unavailable [phone] Reginald Wen MD Unavailable +[phone] Nik Bryan MD Unavailable Tracie Godinez MD Unavailable + [phone] Reginald Wen MD Unavailable +[phone] Keegan Mcdonald MD Unavailable +[phone] Keegan Mcdonald MD Unavailable [phone] Jean Guerin MD Unavailable + [phone] Mehreen Toussaint NP Primary Care Provider [phone] Nilton Roach PA-C Unavailable [phone] Farzana Sabillon MD Unavailable +[phone] Encounter Details Date Type Department Care Team (Late st Contact Info) Description 05/03/[address] [address] Chana Gillette CMA Social History Tobacco Use Types Packs/Day Years Used Date Smoking Tobacco: Former Cigarettes 1 40 0 06/06/1979 - 06/06/2019 Smokeless Tobacco: Never Comments:Occasional Alcohol Use Standard Drinks/Week Comments No 0 (1 standard drink = 0.6 oz pur e alcohol) PHQ-2 Answer Date Recorded PHQ-2 Score 0 05/14/2018 Sex and Gender Information Value Date Recorded Sex Assigned at Female 04/23/2018 4:04 PM SURG TECH Gender Identity Female 04/23/2018 4:04 PM SURG TECH Sexual Orientation Straight 04/23/2018 4: 04 PM SURG TECH documented as of this encounter Plan of Treatment Upcoming Encounters Date Type Department Care Team (Late st Contact Info) Description 09/13/2023 1:00 PM CDT Office Visit [facility] [place] 6525 [facility] 200 [place] [phone] Saroj Romeo MD 420 [place], [place] [address] 10/01/2023 2:00 PM CDT Virtual Visit [facility] [address] [facility] [address] [place] [phone] Farzana Sabillon MD [address] [place] [address] 200 [place], [place] [address] 11/20/2023 11:00 AM CDT Office Visit [facility] [address] [phone] Jean Guerin MD 6401 [place], [place] 0[address] documented as of this encounter Visit Diagnoses Not on filedocumented in this encounter Additional Health Concerns Infection Onset Date Last Indicated Resolved Time Rule Out COVID-19 09/12/2020 09/12/2020 09/13/2020 5:31 PM CDT Assessment Noted Time PHQ-9 Depression Total Score: 2 09/21/19 20 7:02 AM CDT documented as of this encounter Care Teams Congressional Assistant Relationship Specialty Start Date End Date Nilton Roach PA-C [address] [address] PCP - General Physician Cryogenics Engineer 01/02/17 03/06/23 Mehreen Toussaint NP [address] [address] PCP - General 03/07/23 Nilton Roach PA-C [address] [place] [address] Assigned PCP 12/13/16 12/21/22 [place] [address] [place] [address] Assigned Rheumatology Provider 02/26/20 Gray Lora MD [address] [place] [address] Assigned Pulmonology Provider 02/26/20 05/27/21 Reginald Wen MD [address] [place] [address] Assigned Musculoskeletal Provider 05/29/20 07/19/20 Nik Bryan MD [address] [place] [address] Assigned Cancer Care Provider 02/26/20 11/17/21 Tracie Godinez MD 290 [facility] 100 [place] [address] Assigned Musculoskeletal Provider 05/22/20 05/28/20 Reginald Wen MD 4000 [place] [address] Assigned Musculoskeletal Provider 02/26/20 05/21/20 Keegan Mcdonald MD [address] [place] [address] Assigned Pulmonology Provider 07/09/21 09/02/21 Keegan Mcdonald MD [address] [place] [address] Assigned Pulmonology Provider 12/30/21 05/03/23 Jean Guerin MD [address]01 [place] [address] Assigned PCP 12/22/22 05/29/23 Nilton Roach PA-C 290 [facility] 100 [place] [address] Assigned PCP 05/30/23 Farzana Sabillon MD [address] [facility] 200 [place] [address] Assigned Endocrinology Provider 08/27/23 documented as of this encounter
--- OUTSIDE RECORDS SUMMARY | 2023-08-30 12:57 | XMS_ITS | Encounter Summary ---
Author Name Unknown Organization [facility] Address [address] [place] [id number] Care Team Providers Care Wire Twister Name Role Phone Nilton Roach PA-C Primary Care Provider Nilton Roach PA-C Unavailable [phone] Betty Gupta MD Unavailable Gray Lora MD Unavailable [phone] Nik Bryan MD Unavailable Keegan Mcdonald MD Unavailable Keegan Mcdonald MD Unavailable [phone] Jean Guerin MD Unavailable [phone] Mehreen Toussaint NP Primary Care Provider [phone] Nilton Roach PA-C Unavailable [phone] Farzana Sabillon MD Unavailable [phone] Encounter Details Date Type Department Care Team (Late st Contact Info) Description 11/11/2020 MyC Medical Advice [address] [address] Liliane Toro, [facility] Social History Tobacco Use Types Packs/Day Years Used Date Smoking Tobacco: Former Cigarettes 1 40 0 06/06/1979 - 06/06/2019 Smokeless Tobacco: Never Comments:Occasional Alcohol Use Standard Drinks/Week Comments No 0 (1 standard drink = 0.6 oz pur e alcohol) PHQ-2 Answer Date Recorded PHQ-2 Score 0 08/05/2020 Sex and Gender Information Value Date Recorded Sex Assigned at Female 04/23/2018 4:04 PM RUBY ENGINEER Gender Identity Female 04/23/2018 4:04 PM RUBY ENGINEER Sexual Orientation Straight 04/23/2018 4: 04 PM RUBY ENGINEER documented as of this encounter Plan of Treatment Upcoming Encounters Date Type Department Care Team (Late st Contact Info) Description 09/13/2023 1:00 PM CDT Office Visit [facility] [place] [address] [facility] [address] [place] [phone] Saroj Romeo MD [address] [place], [place] [address] 10/01/2023 2:00 PM CDT Virtual Visit [facility] [address] [place] [phone] Farzana Sabillon MD [address] [address] [place], [place] [address] 11/20/2023 11:00 AM CDT Office Visit [facility] [place] [address] [place] [phone] Jean Guerin MD [address] [place], [place] [address] documented as of this encounter Visit Diagnoses Not on filedocumented in this encounter Additional Health Concerns Assessment Noted Time PHQ-9 Depression Total Score: 2 09/21/19 20 7:02 AM CDT documented as of this encounter Care Teams Wire Twister Relationship Specialty Start Date End Date Nilton Roach PA-C [address] [place], [place] [address] PCP - General Physician Regional Sales Director 01/02/17 03/06/23 Mehreen Toussaint NP [address] [address] PCP - General 03/07/23 Nilton Roach PA-C [address] [place] [address] [address] [place] [address] Assigned PCP 12/13/16 12/21/22 [place] [address] [facility] [place] [address] Assigned Rheumatology Provider 02/26/20 Gray Lora MD [address] [place] [address] Assigned Pulmonology Provider 02/26/20 05/27/21 Nik Bryan MD [address] [place] [address] Assigned Cancer Care Provider 02/26/20 11/17/21 Keegan Mcdonald MD [address] [address] Assigned Pulmonology Provider 07/09/21 09/02/21 Keegan Mcdonald MD [address] [address] Assigned Pulmonology Provider 12/30/21 05/03/23 Jean Guerin MD [address] [address] Assigned PCP 12/22/22 05/29/23 Nilton Roach PA-C [address] [place] [address] Assigned PCP 05/30/23 Farzana Sabillon MD [address] [place] [address] Assigned Endocrinology Provider 08/27/23 documented as of this encounter
== END 2023-08-30 12:46 | disposition home or self-care (01) ==
PROVIDERS: PCP Nurse Practitioner Family; Visit Provider Nurse Practitioner Family
DX: R00.2 Palpitations (principal); R07.9 Chest pain, unspecified; Z13.29 Encounter for screening for other suspected endocrine disorder
CPT/HCPCS: 84443; 84484; 85025

== ENCOUNTER 2023-09-18 10:24 | Outpatient (CLI) | payer MEDICARE, BC, SELFPAY ==
--- OUTSIDE RECORDS SUMMARY | 2023-09-18 10:27 | XMS_ITS | Encounter Summary ---
Author Name Unknown Organization [facility] Address [address] [place] [address]. [place] [address] Care Team Providers Care Senior Benefits Analyst Name Role Phone Betty Gupta MD Unavailable [phone] Mehreen Toussaint NP Primary Care Provider Nilton Roach PA-C Unavailable Farzana Sabillon MD Unavailable [phone] Reason for Visit * Reason Comments Flare Encounter Details Date Type Department Care Team (Late st Contact Info) Description 09/13/2023 1:00 PM CDT Office Visit [facility] [address] [address] Saroj Romeo MD [address] [place] [address] Systemic lupus erythematosus, organ or system involvement unspecified (H) (Primary Dx) Social History Tobacco Use [...] Sex Assigned at Female 04/23/2018 4:04 PM SAMPLE WORKER Gender Identity Female 04/23/2018 4:04 PM SAMPLE WORKER Sexual Orientation Straight 04/23/2018 4: 04 PM SAMPLE WORKER documented as of this encounter Last Filed Vital Signs Vital Sign Reading Time Taken Comments Blood Pressure 117/79 09/13/2023 12:55 PM CDT Pulse 106 09/13/2023 12:55 PM CDT Temperature - - Respiratory Rate - - Oxygen Saturation 95% 09/13/2023 12:55 PM CDT Inhaled Oxygen Concentration - - Weight 52.2 kg (115 lb) 09/13/2023 12:55 PM CDT Height - - Body Mass Index 22.46 05/22/2023 11:13 AM SAMPLE WORKER documented in this encounter Patient Instructions * Patient Instructions* Saroj Romeo MD - 09/13/2023 1:00 PM CDT Blood test every 3-6 months Follow up video visit in 3 months documented in this encounter Progress Notes * Saroj Romeo MD - 09/13/2023 1:00 PM CDT Follow-up visit for SLE. Previously she was a patient of Dr. Gupta. Adelaida is 63 years old and she has SLE and used to be on Benlysta but controlled her disease. However, every time she takes the Benlysta subcutaneously she has a reaction within a day or 2 causing more respiratory symptoms. She has stopped Benlysta for this reason and she wonders whether there is another medication she can take instead. In the past he has tried hydroxychloroquine but that caused th e severe itch and possibly a rash. She also was on azathioprine that caused pneumonia. She was not able to tolerate methotrexate. Since she is off the Benlysta she has some lupus symptoms recurring including oral/nasal mucosal sores, joint pain, skin rashes and itch. 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 In addition she has a diagnosis of antiphospholipid syndrome and she is on chronic anticoagulation with Xarelto. For her COPD she is taking now azithromycin daily and she has been on this for a year. Past medical history Systemic lupus erythematosus COPD, oxygen dependent Lumbar degenerative disc disease Physical examination Joint examination shows no active synovitis in the hands wrist elbows or shoulders. Lung auscultation: Reduced breath sounds. Heart: Normal S1-S2 but distant sounds. No murmur There is no malar rash. No skin rash. There is no ankle edema and no synovitis in the ankles and feet I reviewed the blood tests done in August 2023 and they were essentially all normal. Impression/plan 1. Based on her story and her exam and blood test, her SLE is not very active currently. 2. Perhaps restarting the Plaquenil would be the better option, but unfortunately there is an interaction with azithromycin causing QT C prolongation. Therefore, I cannot give her a prescription for Plaquenil at this time. 3. Benlysta is on hold right now because every time she takes Benlysta as she has chest tightness and difficulty breathing with pleurisy type pain. 4. I have ordered standard lab test to be done every 3 months 5. She will check with pulmonary medicine to see if they can give her another antibiotic that does not interact with Plaquenil. 6. Follow-up visit by video in 3 months time and reconsider the options. I spent 30 minutes face to face with the patient, with 20 minutes on counseling and coordination ofcare. documented in this encounter Nursing Notes * Laura Gibson RN - 09/13/2023 1:[address] Gupta patient. Wants to discuss Benlysta. Laura Gibson RN documented in this encounter Plan of Treatment Upcoming Encounters Date Type Department Care Team (Late st Contact Info) Description 10/01/2023 2:00 PM CDT Virtual Visit [facility] [address] [place] [address] Farzana Sabillon MD [address] [place] [address] 11/20/2023 11:00 AM CDT Office Visit [facility] [place] [address] [place] [address] Jean Guerin MD [address] [place] [address] 12/05/2023 11:[address] [facility] [address] [place] [address] 12/12/2023 11:00 AM CDT Virtual Visit [facility] [address] [facility] [address] [place] [phone] Saroj Romeo MD [address] [place] [address] Scheduled Orders Name Type Priority Associated Diagnoses Orde r Schedule CBC with platelets differential Lab Panel Routine Systemic lupus erythematosus, organ or system involvement unspecified (H) every 3 months for 12 Occurrences starting 09/13/2023 until 09/12/2024 Comprehensive metabolic panel Lab Routine Systemic lupus erythematosus, organ or system involvement unspecified (H) every 3 months for 12 Occurrences starting 09/13/2023 until 09/12/2024 Complement C3 Lab Routine Systemic lupus erythematosus, organ or system involvement unspecified (H) every 3 months for 12 Occurrences starting 09/13/2023 until 09/12/2024 Complement C4 Lab Routine Systemic lupus erythematosus, organ or system involvement unspecified (H) every 3 months for 12 Occurrences starting 09/13/2023 until 09/12/2024 ESR Lab Routine Systemic lupus erythematosus, organ or system involvement unspecified (H) every 3 months for 12 Occurrences starting 09/13/2023 until 09/12/2024 CRP inflammation Lab Routine Systemic lupus erythematosus, organ or system involvement unspecified (H) every 3 months for 12 Occurrences starting 09/13/2023 until 09/12/2024 documented as of this encounter Visit Diagnoses Diagnosis Systemic lupus erythematosus, organ or system involvement unspecified (H)- Primary documented in this encounter Additional Health Concerns Assessment Noted Time PHQ-9 Depression Total Score: 2 09/21/19 20 7:02 AM CDT documented as of this encounter Care Teams Senior Benefits Analyst Relationship Specialty Start Date End Date Mehreen Toussaint NP [facility] [address] [place] [address] PCP - General 03/07/23 [place] [address] [place] [address] Assigned Rheumatology Provider 02/26/20 Nilton Roach PA-C [address] [facility] [address] [place] [address] Assigned PCP 05/30/23 Farzana Sabillon MD [address] [place] [address] Assigned Endocrinology Provider 08/27/23 documented as of this encounter
--- OUTSIDE RECORDS SUMMARY | 2023-09-18 10:27 | XMS_ITS | Clinical Summary ---
Author Name Unknown Organization [facility] Address [address] [place] [address] Care Team Providers Care Parliamentary Counsel Name Role Phone Betty Gupta MD Unavailable [phone] Mehreen Toussaint NP Primary Care Provider Nilton Medellin PA-C Unavailable [phone] Farzana Sabillon MD Unavailable [phone] Allergies Active Allergy Reactions Criticality Noted Date [...] medical attention. 4 mL 12 03/07/2023 Active Additional Information Patient not taking.Reported on 09/13/2023 tiotropium (SPIRIVA) 18 MCG inhaled capsuleIndications:S tage [...] Encounters Date Type Department Care Team Description 09/13/2023 1:00 PM CDT Office Visit [address] [place] [address] Saroj Romeo MD Systemic lupus erythematosus, organ or system involvement unspecified (H) (Primary Dx) 09/13/2023 11:[address] [facility] [address] [place] [address] Age-related osteoporosis without current pathological fracture 09/13/2023 Travel 09/12/2023 Travel 08/13/2023 11:30 AM CDT Virtual Visit [place] [address] [place] [phone] Mehreen Toussaint, Farzana Ring MD Age-related osteoporosis without current pathological fracture 08/13/2023 MyC Medical Advice [facility] [address] [place] [phone] Aranza Morales CMA 08/12/2023 11:[address] [facility] [address] [place] [phone] Systemic lupus erythematosus, organ or system involvement unspecified (H); Antiphospholipid syndrome (H24); Encounter for screening for other viral diseases 08/12/2023 Travel 07/16/2023 Telephone [facility] [address] [facility] [address] [place] [phone] Betty Gupta MD 07/11/2023 Telephone [facility] [address] [phone] Jean Guerin MD Fax 07/01/2023 MyC Medical Advice [facility] [address] [facility] [address] [place] [phone] Betty Gupta MD from Last 3 Months Immunizations Name [...] Sex Assigned at Female 04/23/2018 4:04 PM WINDOW REPAIRER Gender Identity Female 04/23/2018 4:04 PM WINDOW REPAIRER Sexual Orientation Straight 04/23/2018 4: 04 PM WINDOW REPAIRER Last Filed Vital Signs Vital Sign Reading Time Taken Comments Blood Pressure 117/79 09/13/2023 12:55 PM CDT Pulse 106 09/13/2023 12:55 PM CDT Temperature 36 ??C (96.8 ??F) 11/27/2022 4:06 PM CDT Respiratory Rate 17 05/22/2023 11:13 AM WINDOW REPAIRER Oxygen Saturation 95% 09/13/2023 12:55 PM CDT Inhaled Oxygen Concentration - - Weight 52.2 kg (115 lb) 09/13/2023 12:55 PM CDT Height 152.4 cm (5') 05/22/2023 11:13 AM WINDOW REPAIRER Body Mass Index 22.46 05/22/2023 11:13 AM WINDOW REPAIRER Plan of Treatment Upcoming Encounters Date Type Department Care Team (Late st Contact Info) Description 10/01/2023 2:00 PM CDT Virtual Visit [facility] [address] [place] [phone] Farzana Sabillon MD [address] [place] [address] [address] [place], [place] [address] 11/20/2023 11:00 AM CDT Office Visit [facility] [address] [phone] Jean Guerin MD [address] [place] [address] 12/05/2023 11:[address] [facility] [address] [place] [phone] 12/12/2023 11:00 AM CDT Virtual Visit [facility] [address] [facility] [address] [place] [phone] Saroj Romeo MD [address] [place] [address] Health Maintenance Due Date Last Done Comments [...] Procedure Name Priority Date/Time Associated Diagnosis Comments PARATHYROID HORMONE INTACT Routine 09/13/2023 11:26 AM CDT Age-related osteoporosis without current pathological fracture CALCIUM Routine 09/13/2023 11:26 AM CDT Age-related osteoporosis without current pathological fracture VITAMIN D DEFICIENCY SCREENING Routine 09/13/2023 11:26 AM CDT Age-related osteoporosis without current pathological fracture UA MICROSCOPIC WITH REFLEX TO CULTURE Routine [...] Encounter for screening for other viral diseases PFT GENERAL LAB TESTING Routine 06/10/2023 2:03 PM WINDOW REPAIRER Stage 4 very severe COPD by GOLD [...] CANCER SCREEN FIT Routine 06/26/2019 7:00 AM WINDOW REPAIRER Colon cancer screening HPV HIGH RISK TYPES DNA CERVICAL Routine 05/29/2019 3:28 PM WINDOW REPAIRER Screening for malignant neoplasm of cervix PAP IMAGED THIN LAYER SCREEN Routine 05/29/2019 3:17 PM WINDOW REPAIRER Screening for malignant neoplasm of cervix HEPATITIS C SCREEN REFLEX TO HCV RNA QUANT AND GENOTYPE Routine 04/22/2019 4:32 PM WINDOW REPAIRER Need for hepatitis C screening test from Last 3 Months or Most Recently Relevant to Health Maintenance Results * (ABNORMAL) Vitamin D Deficiency (09/13/2023 11:26 AM CDT) Vitamin D, Total (25-Hydroxy) 51(H) 20 - 50 ng/mL 09/14/2023 5:54 PM CDT [facility] Comment:indicates supplement ation, with increased risk of hypercalciuria Blood BLOOD SPECIMEN / Unknown Venipuncture / Unknown 09/13/2023 11:26 AM CDT 09/13/2023 11:26 AM CDT Narrative [facility] - 09/14/2023 5:54 PM CDT Season, race, dietary intake, and treatment affect the concentration of 26-wcnmhpt-Xtjrljx D. Values may decrease during winter months and increase during summer months. Vitamin D determination is routinely performed by an immunoassay specific for 25 hydroxyvitamin D3. ??If an individual is on vitamin D2(ergocalciferol) supplementation, please specify 25 OH vitamin D2 and D3 level determination by LCMSMS test VITD23. Farzana Sabillon MD LAB - BLOOD ORDER [facility] [address] [facility], [address] * Parathyroid Hormone Intact (09/13/2023 11:26 AM CDT) Parathyroid Hormone Intact 30 15 - 65 pg/mL 09/14/2023 5:45 PM CDT [facility] Blood BLOOD SPECIMEN / Unknown Venipuncture / Unknown 09/13/2023 11:26 AM CDT 09/13/2023 11:26 AM CDT Narrative [facility] - 09/14/2023 5:45 PM CDT This result was obtained with the Sal Elecsys PTH STAT assay. This reference range differs from PTH assays used in other [facility] laboratories. Farzana Sabillon MD LAB - BLOOD ORDER SMOOTH Performing Organization Address City/[facility]/ZIP Co de Phone Number LABORATORY [facility] [address] [facility], [address] * Calcium (09/13/2023 11:26 AM CDT) Calcium 9.9 8.8 - 10.2 mg/dL 09/14/2023 5:54 PM CDT [facility] Blood BLOOD SPECIMEN / Unknown Venipuncture / Unknown 09/13/2023 11:26 AM CDT 09/13/2023 11:26 AM CDT Farzana Sabillon MD LAB - BLOOD ORDER SMOOTH [facility] [place] [facility] [address] [facility], [address] [place] [address], [facility] * UA Microscopic with Reflex to Culture [...] MD LAB - URINE ORDERABL ES LABORATORY [facility] [address] [facility] (no room number, 1st floor of clinic) [place] [address], [facility] [phone] * (ABNORMAL) Routine UA with Micro Reflex [...] 08/12/2023 11:12 AM CDT [facility] Specific [place] Urine 1.020 1.003 - 1.035 08/12/2023 11:12 [...] LAB - URINE ORDERABL ES LV LABORATORY [facility] [address] [facility] (no room number, 1st floor of [facility] [place] [address], [facility] [phone] * Protein random urine (08/12/2023 10:50 AM [...] LAB - URINE ORDERABL ES [facility] [place] [facility] [address] [facility] [address], [address] [place] [address] * Erythrocyte sedimentation rate auto (08/12/2023 10:50 AM CDT) Erythrocyte Sedimentation Rate 22 0 - 30 mm/hr 08/12/2023 11:04 AM CDT [facility] Blood BLOOD SPECIMEN / Unknown Venipuncture / Unknown 08/12/2023 10:50 AM CDT 08/12/2023 10:50 AM CDT Betty Gupta MD LAB - BLOOD ORDERABL ES LV LAB[facility] [address] [facility] (no room number, 1st floor of [facility] [place] [address] [phone] * DNA ANTIBODY, NATV/2 STRAND (08/12/2023 10:50 AM CDT) Pathologist [facility] DNA (ds) Antibody 0.8 <10.0 IU/mL 08/15/2023 [...] [facility] SPECIAL[facility] CORE/PROT/ENDO [facility] Core/Prot/Endo [address] [facility] [address], [address] [place], [place] [address] * CRP inflammation (08/12/2023 10:50 AM CDT) CRP Inflammation <3.00 <5.00 mg/L 08/13/19 12:19 AM CDT [facility] Blood BLOOD SPECIMEN / Unknown Venipuncture / Unknown 08/12/2023 10:50 AM CDT 08/12/2023 10:50 AM CDT Betty Gupta MD LAB - BLOOD ORDERABL ES [facility] [place] [facility] [address] [facility], [address] * Creatinine (08/12/2023 10:50 AM CDT) Creatinine 0.65 0.51 - 0.95 mg/dL 08/13/2023 12:19 AM CDT [facility] GFR Estimate >90 >60 mL/min/1.73 m2 08/13/2023 12:19 AM CDT [facility] Blood BLOOD SPECIMEN / Unknown Venipuncture / Unknown 08/12/2023 10:50 AM CDT 08/12/2023 10:50 AM CDT Betty Gupta MD LAB - BLOOD ORDERABL ES [facility] [place] [facility] [address] [facility], [address] * Complement C4 (08/12/2023 10:50 AM CDT) C4 Complement 21 13 - 39 mg/dL 08/13/2023 1:49 PM CDT [facility] CORE/PROT/ENDO Blood BLOOD SPECIMEN / Unknown Venipuncture / Unknown 08/12/2023 10:50 AM CDT 08/12/2023 10:50 AM CDT Betty Gupta MD LAB - BLOOD ORDERABL ES [facility] SPECIALTY CORE/PROT/ENDO [facility] Special[facility] Core/Prot/Endo [address] [facility] Building, [address] * Complement C3 (08/12/2023 10:50 AM CDT) C3 Complement 138 81 - 157 mg/dL 08/13/2023 1:49 PM CDT [facility] SPECIAL[facility] CORE/PROT/ENDO Blood BLOOD SPECIMEN / Unknown Venipuncture / Unknown 08/12/2023 10:50 AM CDT 08/12/2023 10:50 AM CDT Betty Gupta MD LAB - BLOOD ORDERABL ES [facility] SPECIALTY CORE/PROT/ENDO [facility] Special[facility] Core/Prot/Endo [address] [facility], [address] * AST (08/12/2023 10:50 AM CDT) AST 16 0 - 45 U/L 08/13/2023 12:19 AM CDT [facility] Blood BLOOD SPECIMEN / Unknown Venipuncture / Unknown 08/12/2023 10:50 AM CDT 08/12/2023 10:50 AM CDT Betty Gupta MD LAB - BLOOD ORDERABL ES [facility] [place] [facility] [address] [facility], [address] * ALT (08/12/2023 10:50 AM CDT) ALT 19 0 - 50 U/L 08/13/2023 12:19 AM CDT [facility] Blood BLOOD SPECIMEN / Unknown Venipuncture / Unknown 08/12/2023 10:50 AM CDT 08/12/2023 10:50 AM CDT Betty Gupta MD LAB - BLOOD ORDERABL ES [facility] [place] [facility] [address] [facility], [address] * Albumin level (08/12/2023 10:50 AM CDT) Albumin 4.4 3.5 - 5.2 g/dL 08/13/2023 12:19 AM CDT [facility] Blood BLOOD SPECIMEN / Unknown Venipuncture / Unknown 08/12/2023 10:50 AM CDT 08/12/2023 10:50 AM CDT Betty Gupta MD LAB - BLOOD ORDERABL ES [facility] [place] [facility] [address] [facility], [address] [place] [address] * CBC with platelets (08/12/2023 10:50 AM [...] LAB - BLOOD ORDERABL ES LV LABORATORY [facility] [address] [facility] (no room number, [facility]st [facility] [place] [address], [facility] [phone] * General PFT Lab (Please always keep checked) (06/10/2023 2:03 PM WINDOW REPAIRER) FIO2-Pre 28.00 % [facility] PFT 06/10/2023 2:03 PM WINDOW REPAIRER Narrative [facility] PFT - 06/13/2023 6:45 PM WINDOW REPAIRER IMPRESSION: Hypoxemia with ambulation on room air. Six minute walk distance is reduced indicating a decrease in exercise tolerance. There is significant oxygen desaturation, without hypoxemia, during the six- minute walk done on supplemental oxygen at 2 L/m. Christine Razo MD ?This interpretation has been electronically signed: ??CHRISTINE RAZO 06/13/2023 ??06:28:31 PM? Jean Guerin MD PFT ORDERABL ES LUIS PFT * CT Chest Lung Cancer Scrn Low [...] 180 <200 mg/dL 08/05/2020 1:07 PM CDT [facility] Triglycerides 85 <150 mg/dL 08/05/2020 1:07 PM CDT [facility] HDL Cholesterol 92 >49 mg/dL 1:10 PM CDT [facility] LDL Cholesterol Calculated 71 <100 mg/dL 08/05/2020 1:10 PM CDT [facility] Comment:Desirable: <100 mg/d l Non HDL Cholesterol 88 <130 mg/dL 08/05/2020 1:10 PM CDT [facility] Blood 08/05/2020 8:55 AM CDT 08/05/2020 8:56 AM CDT Nilton Medellin PA-C LAB - BLOOD ORD ERABLES [facility] [address] [place] [address], [facility] [phone] * (ABNORMAL) Basic metabolic panel (08/05/2020 8:55 AM CDT) Sodium 140 133 - 144 mmol/L 08/05/2020 1:00 PM CDT [facility] Potassium 4.9 3.4 - 5.3 mmol/L 08/05/2020 1:00 PM CDT [facility] Chloride 109 94 - 109 mmol/L 08/05/2020 1:00 PM CDT [facility] Carbon Dioxide 29 20 - 32 mmol/L 08/05/2020 1:07 PM CDT [facility] Anion Gap 2(L) 3 - 14 mmol/L 08/05/2020 1:07 PM CDT [facility] Glucose 107(H) 70 - 99 mg/dL 08/05/2020 1:07 PM CDT [facility] Urea Nitrogen 10 7 - 30 mg/dL 08/05/2020 1:07 PM CDT [facility] Creatinine 0.61 0.52 - 1.04 mg/dL 08/05/2020 1:07 PM CDT [facility] GFR Estimate >90 >60 mL/min/{1. 73_m2} 08/05/2020 1:07 PM CDT [facility] Comment: Non GFR Calc Starting 04/22/2018, serum creatinine based estimated GFR (eGFR) will be calculated using the Chronic Kidney Disease Epidemiology Collaboration (CKD-EPI) equation. GFR Estimate If Black >90 >60 mL/min/{1. 73_m2} 08/05/2020 1:07 PM CDT [facility] Comment: GFR Calc Starting 04/22/2018, serum creatinine based estimated GFR (eGFR) will be calculated using the Chronic Kidney Disease Epidemiology Collaboration (CKD-EPI) equation. Calcium 9.5 8.5 - 10.1 mg/dL 08/05/2020 1:07 PM CDT [facility] 08/05/2020 8:55 AM CDT 08/05/2020 8:56 AM CDT Nilton Medellin PA-C LAB - BLOOD ORD ERABLES [address] [place] [address], [facility] [phone] * COLONOSCOPY (12/31/2019 9:00 AM CDT) COLONOSCOPY [address] [place], [place] [address] [phone] ? Endoscopy Department Patient Name: Dusty Bello [...] done by the ? physician, nurse and patient care technician instructor using the patient's name, date and ? [...] colorectal cancer screen (FIT) (06/26/2019 7:00 AM WINDOW REPAIRER) Occult Blood Scn FIT Positive(A ) NEG^Negati ve 06/29/2019 11:50 AM WINDOW REPAIRER [facility] Stool specimen (specimen) 06/26/2019 7:00 AM WINDOW REPAIRER 06/29/2019 10:28 AM WINDOW REPAIRER Nilton Medellin PA-C LAB - STOOLS OR DERABLES [facility] [address] [place] [address] * HPV High Risk Types DNA Cervical (05/29/2019 3:28 PM WINDOW REPAIRER) HPV Source [facility] 05/29/2019 3:17 PM WINDOW REPAIRER [facility] HPV 16 DNA Negative NEG^Nega tive 06/08/2019 9:24 AM WINDOW REPAIRER [facility] HPV 18 DNA Negative NEG^Nega tive 06/08/2019 9:24 AM WINDOW REPAIRER [facility] Other HR HPV Negative NEG^Nega tive 06/08/2019 9:24 AM WINDOW REPAIRER [facility] Final Diagnosis This patient's sample is negative for HPV DNA. 06/08/2019 9:24 AM WINDOW REPAIRER [facility] Comment: This test was developed and its performance characteristics determined by the [facility], Molecular Diagnostics Laboratory. It has not been [...] Specimen Description Cervical Cells 05/29/2019 3:17 PM WINDOW REPAIRER [facility] Comment:[id number] Cervical Cells 05/29/2019 3: 28 PM WINDOW REPAIRER 2019 8:27 AM WINDOW REPAIRER Nilton Medellin PA-C LAB - BLOOD ORD ERABLES [facility] [address] [place] [address] [address] * Pap imaged thin layer screen with HPV - recommended age 30 - 65 years (select HPV order below) (05/29/2019 3:17 PM WINDOW REPAIRER) PAP SEBASTIAN Hernández Report Patient Name: DUSTY BELLO MR#: [id number] Specimen #: [id number] Collected: 05/29/2019 Received: 06/02/2019 Reported: 06/04/2019 14:00 [...] or other cancers. COLLECTION SITE: Client: ??[facility] Location: ERFP (P) The technical component of this testing was completed at the [facility], with the professional component performed at the [facility], [address] [place] [address] ([phone]) [facility] Cytologic material (specimen) 05/29/2019 3:17 PM WINDOW REPAIRER 06/02/2019 3:05 PM WINDOW REPAIRER Nilton Medellin PA-C LAB - OPTIME CL INICAL SPECIMEN [facility] * Hepatitis C Screen Reflex to HCV RNA Quant and Genotype (04/22/2019 4:32 PM WINDOW REPAIRER) Hepatitis C Antibody Nonreactive NR^Nonre active 04/23/2019 9:09 AM WINDOW REPAIRER [facility] Comment: Assay performance characteristics have not been established for newborns, infants, and children Blood specimen (specimen) 04/22/2019 4:32 PM WINDOW REPAIRER 04/22/2019 4:33 PM WINDOW REPAIRER Nilton Medellin PA-C LAB - BLOOD ORD ERABLES [facility] [address] [place] [address] from Last 3 Months or Most Recently Relevant to Health Maintenance Advance Directives For more information, please contact: [phone] * Full Code (Latest Code Status on File) Date Activated Date Inactivated Comments 07/12/2017 8:57 AM 07/18/2018 6:43 AM * Full Code Date Activated Date Inactivated Comments 07/10/2017 7:49 PM 07/12/2017 8:57 AM Care Teams Parliamentary Counsel Relationship Specialty Start Date End Date Mehreen Toussaint NP [address] [address] PCP - General 03/07/23 [place] [address] [place] [address] Assigned Rheumatology Provider 02/26/20 Nilton Medellin PA-C [address] [place] [address] Assigned PCP 05/30/23 Farzana Sabillon MD [address] [place], [place] [address] Assigned Endocrinology Provider 08/27/23
--- OUTSIDE RECORDS SUMMARY | 2023-09-18 10:27 | XMS_ITS | Clinical Summary ---
Author Name Unknown Organization [email or web address] [facility] Address [place], [place] [address] Care Team Providers Care Outsole Compressor Name Role Phone [facility] Primary Care Provider + [facility] [place] Unavailable Allergies Active Allergy Reactions Criticality Noted [...] ca Heart Disease Brother 2 alive, ygr, [place] Diabetes Father dec age 50s jenny betes [...] Comments Blood Pressure 130/90 07/03/2021 1:10 PM METAL DRILL PRESS OPERATOR Pulse 80 07/03/2021 1:10 PM METAL DRILL PRESS OPERATOR Temperature 36.7 ??C (98 ??F) 07/03/2021 1:10 PM METAL DRILL PRESS OPERATOR Respiratory Rate 22 07/03/2021 1:10 PM METAL DRILL PRESS OPERATOR Oxygen Saturation 96% 07/03/2021 1:10 PM METAL DRILL PRESS OPERATOR Inhaled Oxygen Concentration - - Weight 50.3 kg (111 lb) 06/19/2021 11:00 AM METAL DRILL PRESS OPERATOR Height 152.4 cm (5') 06/19/2021 11:00 AM METAL DRILL PRESS OPERATOR Body Mass Index 21.68 06/19/2021 11:00 AM METAL DRILL PRESS OPERATOR Plan of Treatment Health Maintenance Due Date [...] SCREEN FFDM (IA) Routine 06/25/2013 12:52 PM METAL DRILL PRESS OPERATOR Other screening mammogram LIPID PANEL W REFLEX MEASURED LDL Timed 07/16/2012 4:47 PM CDT Health care maintenance from Last 3 Months or Most Recently Relevant to Health Maintenance Results * XR MAMMO BILAT SCREEN FFDM (06/25/2013 12:52 PM METAL DRILL PRESS OPERATOR) Anatomical Region Laterality Modality BREASTS, Breast Left, Breast Right Bilateral Mammography Impressions 07/03/2013 4:02 PM METAL DRILL PRESS OPERATOR ??There is no radiographic evidence for malignancy. ??Recommend annual mammograms. A lay language report of this examination will be provided to the patient. MAMMOGRAM ASSESSMENT: ??ACR 1 Negative Narrative 07/03/2013 4:02 PM METAL DRILL PRESS OPERATOR XR MAMMO BILAT SCREEN FFDM [G0202.0] CLINICAL [...] CDT) CHOLESTEROL,TOTAL 232(H) 100 - 199 mg/dL [facility] TRIGLYCERIDES 91 <150 mg/dL [facility] HDL CHOLESTEROL 64 >40 mg/dL [facility] CHOL/HDL RATIO 3.63 <4.50 [facility] NON-HDL CHOLESTEROL 168 Undefined mg/dL [facility] LDL CHOLESTEROL 150(H) <131 mg/dL [facility] PATIENT STATUS Fasting [facility] Blood specimen (specimen) BLOOD SPECIMEN / Unknown 07/16/2012 4:47 PM CDT 07/16/2012 4:39 PM CDT Lars Langford MD CHEMISTRY [facility] [address] [place] [address] from Last 3 Months or Most Recently Relevant to Health Maintenance Advance Directives Documents on File Type Date Recorded Patient Carrot Tier Expl anation Healthcare Directive 05/03/2021 021 * [...] 10:10 PM 05/12/2012 7:13 PM Care Teams Outsole Compressor Relationship Specialty Start Date End Date [facility] [address] [place] [address] PCP - General 01/20/20 [facility] [address], [place] [address] 06/16/21
--- OUTSIDE RECORDS SUMMARY | 2023-09-18 10:27 | XMS_ITS | Encounter Summary ---
Author Name Unknown Organization [place] Address [address] [place] [address] Care Team Providers Care Incident Response Engineer Name Role Phone Betty Gupta MD Unavailable [phone] Mehreen Toussaint NP Primary Care Provider Nilton Roach PA-C Unavailable [phone] Farzana Sabillon MD Unavailable [phone] Encounter Details Date Type Department Care Team (Latest Contact Info) Description 09/12/2023 Travel Social History Tobacco Use Types Packs/Day [...] Sex Assigned at Female 04/23/2018 4:04 PM HRIS MANAGER Gender Identity Female 04/23/2018 4:04 PM HRIS MANAGER Sexual Orientation Straight 04/23/2018 4: 04 PM HRIS MANAGER documented as of this encounter Plan of Treatment Upcoming Encounters Date Type Department Care Team (Late st Contact Info) Description 10/01/2023 2:00 PM CDT Virtual Visit [facility] [address] [place] [address] Farzana Sabillon MD [address] [place] [address] 11/20/2023 11:00 AM CDT Office Visit [facility] [place] [address] [place] [phone] Jean Guerin MD [address] [place] [address] 12/05/2023 11:00 AM CDT Lab [facility] [address] [place] [phone] 12/12/2023 11:00 AM CDT Virtual Visit [facility] [address] [facility] [address] [place] [phone] Saroj Romeo MD [address] [place], [place] [address] documented as of this encounter Visit Diagnoses Not on filedocumented in this encounter Additional Health Concerns Assessment Noted Time PHQ-9 Depression Total Score: 2 09/21/19 20 7:02 AM CDT documented as of this encounter Care Teams Incident Response Engineer Relationship Specialty Start Date End Date Mehreen Toussaitn NP [address] [address] PCP - General 03/07/23 [place] [address] [place] [address] Assigned Rheumatology Provider 02/26/20 Nilton Roach PA-C [address] [facility] [address] [place] [address] Assigned PCP 05/30/23 Farzana Sabillon MD [address] [facility] [address] [place] [address] Assigned Endocrinology Provider 08/27/23 documented as of this encounter
--- OUTSIDE RECORDS SUMMARY | 2023-09-18 10:27 | XMS_ITS | Encounter Summary ---
Author Name Unknown Organization [facility] Address [address] [place] [id number] Care Team Providers Care Elementary Assistant Teacher Name Role Phone Betty Gupta MD Unavailable [phone] Mehreen Toussaint NP Primary Care Provider Nilton Roach PA-C Unavailable [phone] Farzana Sabillon MD Unavailable [phone] Encounter Details Date Type Department Care Team (Late st Contact Info) Description 08/13/2023 MyC Medical Advice [facility] [address] [place] [address] Aranza Morales, SPACECRAFT SYSTEMS ENGINEER Social History Tobacco Use Types Packs/Day Years [...] Sex Assigned at Female 04/23/2018 4:04 PM FRUIT OR NUT FARM WORKER Gender Identity Female 04/23/2018 4:04 PM FRUIT OR NUT FARM WORKER Sexual Orientation Straight 04/23/2018 4: 04 PM FRUIT OR NUT FARM WORKER documented as of this encounter Plan of Treatment Upcoming Encounters Date Type Department Care Team (Late st Contact Info) Description 10/01/2023 2:00 PM CDT Virtual Visit [facility] [address] [place] [phone] Farzana Sabillon MD [address] [place] [address] [address] [place] [address] 11/20/2023 11:00 AM CDT Office Visit [facility] [place] [address] [place] [phone] Jean Guerin MD [address] [place] [address] 12/05/2023 11:00 AM CDT Lab [facility] [address] [place] [phone] 12/12/2023 11:00 AM CDT Virtual Visit [facility] [address] [phone] Saroj Romeo MD [address] [place], [place] [phone] documented as of this encounter Visit Diagnoses Not on filedocumented in this encounter Additional Health Concerns Assessment Noted Time PHQ-9 Depression Total Score: 2 09/21/19 20 7:02 AM CDT documented as of this encounter Care Teams Elementary Assistant Teacher Relationship Specialty Start Date End Date Mehreen Toussaint NP [address] [address] PCP - General 03/07/23 [place] [address] [place] [address] Assigned Rheumatology Provider 02/26/20 Nilton Roach PA-C [address] [place] [address] Assigned PCP 05/30/23 Farzana Sabillon MD [address] [place] [address] Assigned Endocrinology Provider 08/27/23 documented as of this encounter
--- OUTSIDE RECORDS SUMMARY | 2023-09-18 10:27 | XMS_ITS | Encounter Summary ---
Author Name Unknown Organization [facility] Address [address] [place] [address] Care Team Providers Care Bariatric Surgeon Name Role Phone Betty Gupta MD Unavailable [phone] Mehreen Toussaint NP Primary Care Provider Nilton Roach PA-C Unavailable [phone] Farzana Sabillon MD Unavailable [phone] Encounter Details Date Type Department Care Team (Late st Contact Info) Description 09/13/2023 11:30 AM CDT Lab [address] [phone] Age-related osteoporosis without current pathological fracture Social [...] Sex Assigned at Female 04/23/2018 4:04 PM SIGN DESIGNER Gender Identity Female 04/23/2018 4:04 PM SIGN DESIGNER Sexual Orientation Straight 04/23/2018 4: 04 PM SIGN DESIGNER documented as of this encounter Plan of Treatment Upcoming Encounters Date Type Department Care Team (Late st Contact Info) Description 10/01/2023 2:[address] PM CDT Virtual Visit [facility] [address] [place] [phone] Farzana Sabillon MD [address] [place] [address] [address] [place] [address] 11/20/2023 11:00 AM CDT Office Visit [facility] [address] [phone] Jean Guerin MD [address] [place] [address] 12/05/2023 11:00 AM CDT Lab [facility] [address] [place] [phone] 12/12/2023 11:00 AM CDT Virtual Visit [address] [phone] Saroj Romeo MD [address] [place], [place] [phone] documented as of this encounter Procedures Procedure Name Priority Date/Time Associated Diagnosis Comments VITAMIN D DEFICIENCY SCREENING Routine 09/13/2023 11:26 AM CDT Age-related osteoporosis without current pathological fracture PARATHYROID HORMONE INTACT Routine 09/13/2023 11:26 AM CDT Age-related osteoporosis without current pathological fracture CALCIUM Routine 09/13/2023 11:26 AM CDT Age-related osteoporosis without current pathological fracture documented in this encounter Results * Parathyroid Hormone Intact (09/13/2023 11:26 AM CDT) Parathyroid Hormone Intact 30 15 - 65 pg/mL 09/14/2023 5:45 PM CDT [facility] Blood BLOOD SPECIMEN / Unknown Venipuncture / Unknown 09/13/2023 11:26 AM CDT 09/13/2023 11:26 AM CDT Narrative [facility] - 09/14/2023 5:45 PM CDT This result was obtained with the Sal Elecsys PTH STAT assay. This reference range differs from PTH assays used in other [facility] laboratories. Farzana Sabillon MD LAB - BLOOD ORDER [facility] [address] [facility], [address] * Calcium (09/13/2023 11:26 AM CDT) Pathologist [facility] Calcium 9.9 8.8 - 10.2 mg/dL 09/14/2023 5:54 PM CDT [facility] Blood BLOOD SPECIMEN / Unknown Venipuncture / Unknown 09/13/2023 11:26 AM CDT 09/13/2023 11:26 AM CDT Farzana Sabillon MD LAB - BLOOD ORDER SMOOTH Performing Organization Address City/[facility]/ZIP Co de Phone Number LABORATORY [facility] [address] [facility], [address] * (ABNORMAL) Vitamin D Deficiency (09/13/2023 11:26 [...] intake, and treatment affect the concentration of 48-nhckupe-Hzqebzo D. Values may decrease during winter months and increase during summer months. Vitamin D determination is routinely performed by an immunoassay specific for 25 hydroxyvitamin D3. ??If an individual is on vitamin D2(ergocalciferol) supplementation, please specify 25 OH vitamin D2 and D3 level determination by LCMSMS test VITD23. Farzana Sabillon MD LAB - BLOOD ORDER SMOOTH [facility] [address] [facility], [address] [place] [phone], [facility] documented in this encounter Visit Diagnoses Diagnosis Age-related osteoporosis without current pathological fracture Senile osteoporosis documented in this encounter Additional Health Concerns Assessment Noted Time PHQ-9 Depression Total Score: 2 09/21/19 20 7:02 AM CDT documented as of this encounter Care Teams Bariatric Surgeon Relationship Specialty Start Date End Date Mehreen Toussaint NP [address] [address] PCP - General 03/07/23 [place] [address] [place] [address] Assigned Rheumatology Provider 02/26/20 Nilton Roach PA-C [address] [place] [address] Assigned PCP 05/30/23 Farzana Sabillon MD [address] [place] [address] Assigned Endocrinology Provider 08/27/23 documented as of this encounter
--- OUTSIDE RECORDS SUMMARY | 2023-09-18 10:27 | XMS_ITS | Referral Summary ---
Author Name Unknown Organization [place] Address [address] [place] [address] Care Team Providers Care Poolroom/Poolhall Manager Name Role Phone Betty Gupta MD Unavailable [phone] Mehreen Toussaint NP Primary Care Provider Nilton Medellin PA-C Unavailable [phone] Farzana Sabillon MD Unavailable [phone] Encounters Date Type Department Care Team Description 09/13/2023 Travel 09/13/2023 11:30 AM CDT Lab [facility] [address] [place] [address] Age-related osteoporosis without current pathological fracture 09/13/2023 1:00 PM CDT Office Visit [facility] [address] [place] [phone] Saroj Romeo MD Systemic lupus erythematosus, organ or system involvement unspecified (H) (Primary Dx) 09/12/2023 Travel 08/13/2023 MyC Medical Advice [facility] [address] [place] [address] Aranza Morales CMA 08/13/2023 11:30 AM CDT Virtual Visit [facility] [address] [place] [address] Mehreen Toussaint, Farzana Ring MD Age-related osteoporosis without current pathological fracture 08/12/2023 Travel 08/12/2023 11:00 AM CDT Lab [facility] [address] [place] [address] Systemic lupus erythematosus, organ or system involvement unspecified (H); Antiphospholipid syndrome (H24); Encounter for screening for other viral diseases 07/16/[address] [phone] Betty Gupta MD 07/11/2023 Telephone [facility] and [address] [address] Jean Guerin MD Fax 07/01/2023 MyC Medical Advice [address] [phone] Betty Gupta MD from Last 3 Months Allergies Active [...] Sex Assigned at Female 04/23/2018 4:04 PM UX VISUAL DESIGNER Gender Identity Female 04/23/2018 4:04 PM UX VISUAL DESIGNER Sexual Orientation Straight 04/23/2018 4: 04 PM UX VISUAL DESIGNER Last Filed Vital Signs Vital Sign Reading Time Taken Comments Blood Pressure 117/79 09/13/2023 12:55 PM CDT Pulse 106 09/13/2023 12:55 PM CDT Temperature 36 ??C (96.8 ??F) 11/27/2022 4:06 PM CDT Respiratory Rate 17 05/22/2023 11:13 AM UX VISUAL DESIGNER Oxygen Saturation 95% 09/13/2023 12:55 PM CDT Inhaled Oxygen Concentration - - Weight 52.2 kg (115 lb) 09/13/2023 12:55 PM CDT Height 152.4 cm (5') 05/22/2023 11:13 AM UX VISUAL DESIGNER Body Mass Index 22.46 05/22/2023 11:13 AM UX VISUAL DESIGNER Plan of Treatment Upcoming Encounters Date Type Department Care Team (Late st Contact Info) Description 10/01/2023 2:00 PM CDT Virtual Visit [facility] [address] [facility] [address] [place] [phone] Farzana Sabillon MD [address] [address] 11/20/2023 11:00 AM CDT Office Visit [facility] [address] [place] [phone] Jean Guerin MD [address] [place] [address] 12/05/2023 11:00 AM CDT Lab [facility] [address] [place] [address] 12/12/2023 11:00 AM CDT Virtual Visit [facility] [address] [phone] Saroj Romeo MD [address] [place], [place] [phone] Procedures Procedure Name Priority Date/Time Associated Diagnosis [...] GENERAL LAB TESTING Routine 06/10/2023 2:03 PM UX VISUAL DESIGNER Stage 4 very severe COPD by GOLD [...] CANCER SCREEN FIT Routine 06/26/2019 7:00 AM UX VISUAL DESIGNER Colon cancer screening HPV HIGH RISK TYPES DNA CERVICAL Routine 05/29/2019 3:28 PM UX VISUAL DESIGNER Screening for malignant neoplasm of cervix PAP IMAGED THIN LAYER SCREEN Routine 05/29/2019 3:17 PM UX VISUAL DESIGNER Screening for malignant neoplasm of cervix HEPATITIS C SCREEN REFLEX TO HCV RNA QUANT AND GENOTYPE Routine 04/22/2019 4:32 PM UX VISUAL DESIGNER Need for hepatitis C screening test from [...] intake, and treatment affect the concentration of 16-cqfaych-Qzhqoit D. Values may decrease during winter months and increase during summer months. Vitamin D determination is routinely performed by an immunoassay specific for 25 hydroxyvitamin D3. ??If an individual is on vitamin D2(ergocalciferol) supplementation, please specify 25 OH vitamin D2 and D3 level determination by LCMSMS test VITD23. Farzana Sabillon MD LAB - BLOOD ORDER SMOOTH [facility] LABORAT[facility] Core Lab [address] [facility] [address], [address] * Parathyroid Hormone Intact (09/13/2023 11:26 [...] differs from PTH assays used in other [facility] laboratories. Farzana Sabillon MD LAB - BLOOD ORDER SMOOTH U LABORATORY [facility] Lab [address] [facility], [address] * Calcium (09/13/2023 11:26 AM CDT) Pathologist [facility] Calcium 9.9 8.8 - 10.2 mg/dL 09/14/2023 5:54 PM CDT UU LABORATORY Blood BLOOD SPECIMEN / Unknown Venipuncture / Unknown 09/13/2023 11:26 AM CDT 09/13/2023 11:26 AM CDT Farzana Sabillon MD LAB - BLOOD ORDER SMOOTH U LABORATORY [facility] Core Lab [address] [facility], [address] * UA Microscopic with Reflex to Culture (08/12/2023 10:50 AM CDT) Pathologist [facility] RBC Urine None Seen 0-2 /HPF /HPF [...] MD LAB - URINE ORDERABL ES LABORATORY [facility] [address] [facility] Lab (no room number, 1st floor of clinic) [place] [address] [phone] * (ABNORMAL) Routine UA with Micro Reflex to Culture (08/12/2023 10:50 AM CDT) Color Urine Yellow Colorless, Straw, Light Yellow, Yellow 08/12/2023 11:12 AM CDT LABORATORY Appearance Urine Clear Clear 08/12/19 24 11:12 AM CDT LABORATORY Glucose Urine Negative Negative mg/dL 08/12/2023 11:12 AM CDT LABORATORY Bilirubin Urine Negative Negative 11:12 AM CDT LABORATORY Ketones Urine Negative Negative mg/dL 08/12/2023 11:12 AM CDT LABORATORY Specific [place] Urine 1.020 1.003 - 1.035 08/12/2023 11:12 AM CDT LABORATORY Blood Urine Trace(A) Negative 08/12/2023 11:12 AM CDT LABORATORY pH Urine 5.5 5.0 - 7.0 08/12/2023 11:12 AM CDT LABORATORY Protein Albumin Urine Negative Negative mg/dL 08/12/2023 11:12 AM CDT LABORATORY Urobilinogen Urine 0.2 0.2, 1.0 E.U./dL 08/12/2023 11:12 AM CDT LABORATORY Nitrite Urine Negative Negative 08/12/2023 11:12 AM CDT LV LABORATORY Leukocyte Esterase Urine Negative Negative 08/12/2023 11:12 AM CDT LABORATORY Urine URINE SPECIMEN OBTAINED BY CLEAN CATCH PROCEDURE / Unknown Non-blood Collection / Unknown 08/12/2023 10:50 AM CDT 08/12/2023 11:01 AM CDT Betty Gupta MD LAB - URINE ORDERABL ES LV LABORATORY [facility] [address] [facility] Lab (no room number, 1st floor of clinic) [place] [address], [facility] [phone] * Protein random urine (08/12/2023 10:50 AM [...] LAB - URINE ORDERABL ES UU LABORATORY [facility] Core Lab [address] [facility], [address] [place] [address] * Erythrocyte sedimentation rate auto (08/12/2023 10:50 AM CDT) Erythrocyte Sedimentation Rate 22 0 - 30 mm/hr 08/12/2023 11:04 AM CDT LV LABORATORY Blood BLOOD SPECIMEN / Unknown Venipuncture / Unknown 08/12/2023 10:50 AM CDT 08/12/2023 10:50 AM CDT Betty Gupta MD LAB - BLOOD ORDERABL ES [facility] [address] [facility] Lab (no room number, 1st floor of clinic) [place] [address] [phone] * DNA ANTIBODY, NATV/2 STRAND (08/12/2023 10:50 AM CDT) DNA (ds) Antibody 0.8 <10.0 IU/mL 08/15/2023 9:55 AM CDT SPECIALTY CORE/PROT/ENDO Comment:Negative Blood BLOOD SPECIMEN / Unknown Venipuncture / Unknown 08/12/2023 10:50 AM CDT 08/12/2023 10:50 AM CDT Narrative SPECIALTY CORE/PROT/ENDO - 08/15/2023 9:55 AM CDT Negative: ??Less than 10 Equivocal: 10-15 Positive: ??Greater than 15 Betty Gupta MD LAB - BLOOD ORDERABL ES SPECIALTY CORE/PROT/ENDO Specialty Core/Prot/Endo [address] [facility], Room [address] * CRP inflammation (08/12/2023 10:50 AM CDT) CRP Inflammation <3.00 <5.00 mg/L 08/13/19 12:19 AM CDT UU LABORATORY Blood BLOOD SPECIMEN / Unknown Venipuncture / Unknown 08/12/2023 10:50 AM CDT 08/12/2023 10:50 AM CDT Betty Gupta MD LAB - BLOOD ORDERABL ES UU LABORATORY [facility] Core Lab [address] [facility] Building, [address] * Creatinine (08/12/2023 10:50 AM CDT) Creatinine 0.65 0.51 - 0.95 mg/dL 08/13/2023 12:19 AM CDT UU LABORATORY GFR Estimate >90 >60 mL/min/1.73 m2 08/13/2023 12:19 AM CDT UU LABORATORY Blood BLOOD SPECIMEN / Unknown Venipuncture / Unknown 08/12/2023 10:50 AM CDT 08/12/2023 10:50 AM CDT Betty Gupta MD LAB - BLOOD ORDERABL ES UU LABORATORY [facility] Core Lab 500 [facility] [address] Building, [address] * Complement C4 (08/12/2023 10:50 AM CDT) C4 Complement 21 13 - 39 mg/dL 08/13/2023 1:49 PM CDT UM SPECIALTY CORE/PROT/ENDO Blood BLOOD SPECIMEN / Unknown Venipuncture / Unknown 08/12/2023 10:50 AM CDT 08/12/2023 10:50 AM CDT Betty Gupta MD LAB - BLOOD ORDERABL ES UM SPECIALTY CORE/PROT/ENDO Specialty Core/Prot/Endo [address] [facility], [address] * Complement C3 (08/12/2023 10:50 AM CDT) C3 Complement 138 81 - 157 mg/dL 08/13/2023 1:49 PM CDT UM SPECIALTY CORE/PROT/ENDO Blood BLOOD SPECIMEN / Unknown Venipuncture / Unknown 08/12/2023 10:50 AM CDT 08/12/2023 10:50 AM CDT Betty Gupta MD LAB - BLOOD ORDERABL ES UM SPECIALTY CORE/PROT/ENDO UM Specialty Core/Prot/Endo 500 [facility] Unit Building, Room [address] * AST (08/12/2023 10:50 AM CDT) AST 16 0 - 45 U/L 08/13/2023 12:19 AM CDT UU LABORATORY Blood BLOOD SPECIMEN / Unknown Venipuncture / Unknown 08/12/2023 10:50 AM CDT 08/12/2023 10:50 AM CDT Betty Gupta MD LAB - BLOOD ORDERABL ES U LABORATORY [facility] [address] [facility], [address] * ALT (08/12/2023 10:50 AM CDT) ALT 19 0 - 50 U/L 08/13/2023 12:19 AM CDT UU LABORATORY Blood BLOOD SPECIMEN / Unknown Venipuncture / Unknown 08/12/2023 10:50 AM CDT 08/12/2023 10:50 AM CDT Betty Gupta MD LAB - BLOOD ORDERABL ES LABORATORY [facility] Lab [address] [facility], [address] * Albumin level (08/12/2023 10:50 AM CDT) Albumin 4.4 3.5 - 5.2 g/dL 08/13/2023 12:19 AM CDT UU LABORATORY Blood BLOOD SPECIMEN / Unknown Venipuncture / Unknown 08/12/2023 10:50 AM CDT 08/12/2023 10:50 AM CDT Betty Gupta MD LAB - BLOOD ORDERABL ES U LABORATORY [facility] [address] [facility], [address] [phone] [place] [address] * CBC with platelets (08/12/2023 10:50 AM [...] LAB - BLOOD ORDERABL ES LV LABORATORY [facility] [address] [facility] Lab (no room number, 1st floor of clinic) [place] [address] [phone] * General PFT Lab (Please always keep checked) (06/10/2023 2:03 PM UX VISUAL DESIGNER) FIO2-Pre 28.00 % BREEZE PFT 06/10/2023 2:03 PM UX VISUAL DESIGNER Narrative BREEZE PFT - 06/13/2023 6:45 PM UX VISUAL DESIGNER IMPRESSION: Hypoxemia with ambulation on room air. [...] trachea (9 mm; 2/6). Jean Guerin MD [facility] CT ORDER SMOOTH * MA Screen Bilateral [...] patient. JEAN LORENZ MD Nilton Medellin PA-C IM MAMMOGRAPHY ORDERABLES * Lipid panel reflex to direct LDL Fasting (08/05/2020 8:55 AM CDT) Cholesterol 180 <200 mg/dL 08/05/2020 1:[address] [facility] Triglycerides 85 <150 mg/dL 08/05/2020 1:[address] [facility] HDL Cholesterol 92 >49 mg/dL 1:[address] [facility] LDL Cholesterol Calculated 71 <100 mg/dL 08/05/2020 1:[address] [facility] Comment:Desirable: <100 mg/d l Non HDL Cholesterol 88 <130 mg/dL 08/05/2020 1:[address] [facility] Blood 08/05/2020 8:55 AM CDT 08/05/2020 8:56 AM CDT Nilton Medellin PA-C LAB - BLOOD ORD ERABLES [facility] [address] [place] [address], [facility] [phone] * (ABNORMAL) Basic metabolic panel (08/05/2020 8:55 AM CDT) Sodium 140 133 - 144 mmol/L 08/05/2020 1:[address] [facility] Potassium 4.9 3.4 - 5.3 mmol/L 08/05/2020 1:[address] [facility] Chloride 109 94 - 109 mmol/L 08/05/2020 1:[address] [facility] Carbon Dioxide 29 20 - 32 mmol/L 08/05/2020 1:[address] [facility] Anion Gap 2(L) 3 - 14 mmol/L 08/05/2020 1:[address] [facility] Glucose 107(H) 70 - 99 mg/dL 08/05/2020 1:[address] [facility] Urea Nitrogen 10 7 - 30 mg/dL 08/05/2020 1:[address] [facility] Creatinine 0.61 0.52 - 1.04 mg/dL 08/05/2020 1:[address] [facility] GFR Estimate >90 >60 mL/min/{1. 73_m2} 08/05/2020 1:[address] [facility] Comment: Non GFR Calc Starting 04/22/2018, serum creatinine based estimated GFR (eGFR) will be calculated using the Chronic Kidney Disease Epidemiology Collaboration (CKD-EPI) equation. GFR Estimate If Black >90 >60 mL/min/{1. 73_m2} 08/05/2020 1:[address] [facility] Comment: GFR Calc Starting 04/22/2018, serum creatinine based estimated GFR (eGFR) will be calculated using the Chronic Kidney Disease Epidemiology Collaboration (CKD-EPI) equation. Calcium 9.5 8.5 - 10.1 mg/dL 08/05/2020 1:[address] [facility] 08/05/2020 8:55 AM CDT 08/05/2020 8:56 AM CDT Nilton Medellin PA-C LAB - BLOOD ORD ERABLES [address] [place] [address], [facility] [phone] * COLONOSCOPY (12/31/2019 9:00 AM CDT) COLONOSCOPY [address] [address] [phone] ? Endoscopy Department Patient Name: Dusty Bello [...] done by the ? physician, nurse and remediation technician using the patient's name, date and [...] 9:00 AM CDT Nilton Medellin PA-C PROCEDURES Performing Organization Address [facility]/ZIP Co de Phone Number RADIOLOGY RESULTS * (ABNORMAL) Fecal colorectal cancer screen (FIT) (06/26/2019 7:00 AM UX VISUAL DESIGNER) Occult Blood Scn FIT Positive(A ) NEG^Negati ve 06/29/2019 11:50 AM UX VISUAL DESIGNER [facility] Stool specimen (specimen) 06/26/2019 7:00 AM UX VISUAL DESIGNER 06/29/2019 10:28 AM UX VISUAL DESIGNER Nilton Medellin PA-C LAB - STOOLS OR DERABLES Performing Organization Address City/[facility]/ZIP Co de Phone Number [facility] [address] [place] [address] * HPV High Risk Types DNA Cervical (05/29/2019 3:28 PM UX VISUAL DESIGNER) HPV Source [facility] 05/29/2019 3:17 PM UX VISUAL DESIGNER [facility] HPV 16 DNA Negative NEG^Nega tive 06/08/2019 9:24 AM UX VISUAL DESIGNER [facility] HPV 18 DNA Negative NEG^Nega tive 06/08/2019 9:24 AM UX VISUAL DESIGNER [facility] Other HR HPV Negative NEG^Nega tive 06/08/2019 9:24 AM UX VISUAL DESIGNER [facility] Final Diagnosis This patient's sample is negative for HPV DNA. 06/08/2019 9:24 AM UX VISUAL DESIGNER [facility] Comment: This test was developed and its performance characteristics determined by the [facility], Molecular Diagnostics Laboratory. It has not been [...] Specimen Description Cervical Cells 05/29/2019 3:17 PM UX VISUAL DESIGNER [facility] Comment:[id number] Cervical Cells 05/29/2019 3: 28 PM UX VISUAL DESIGNER 2019 8:27 AM UX VISUAL DESIGNER Nilton Medellin PA-C LAB - BLOOD ORD ERABLES [facility] [address] [place] [address] [facility] [address] [place] [address] * Pap imaged thin layer screen with HPV - recommended age 30 - 65 years (select HPV order below) (05/29/2019 3:17 PM UX VISUAL DESIGNER) PAP SEBASTIAN Hernández Report Patient Name: DUSTY BELLO MR#: [id number] Specimen #: [id number] Collected: 05/29/2019 Received: 06/02/2019 Reported: 06/04/2019 14:00 [...] adenocarcinomas or other cancers. COLLECTION SITE: Client: ??[facility] Location: [facility] (P) The technical component of this testing was completed at the [facility], with the professional component performed at the [facility], [address] [place] [phone] ([phone]) KIZZY Cytologic material (specimen) 05/29/2019 3:17 PM UX VISUAL DESIGNER 06/02/2019 3:05 PM UX VISUAL DESIGNER [facility] - [facility] INICAL SPECIMEN [facility] * Hepatitis C Screen Reflex to HCV RNA Quant and Genotype (04/22/2019 4:32 PM UX VISUAL DESIGNER) Hepatitis C Antibody Nonreactive NR^Nonre active 04/23/2019 9:09 AM UX VISUAL DESIGNER [facility] Comment: Assay performance characteristics have not been established for newborns, infants, and children Blood specimen (specimen) 04/22/2019 4:32 PM UX VISUAL DESIGNER 04/22/2019 4:33 PM UX VISUAL DESIGNER Nilton Medellin PA-C LAB - BLOOD ORD ERABLES [facility] [address] [place] [address] from Last 3 Months or Most Recently Relevant to Health Maintenance Advance Directives For more information, please contact: [phone] * Full Code (Latest Code Status on File) Date Activated Date Inactivated Comments 07/12/2017 8:57 AM 07/18/2018 6:43 AM * Full Code Date Activated Date Inactivated Comments 07/10/2017 7:49 PM 07/12/2017 8:57 AM Care Teams Poolroom/Poolhall Manager Relationship Specialty Start Date End Date Mehreen Toussaint NP [facility] [address] [place] [address] PCP - General 03/07/23 [place] [address] [place] [address] Assigned Rheumatology Provider 02/26/20 Nilton Medellin PA-C [address] [facility] [address] [place] [address] Assigned PCP 05/30/23 Farzana Sabillon MD [address] [address] [place] [address] Assigned Endocrinology Provider 08/27/23
--- OUTSIDE RECORDS SUMMARY | 2023-09-18 10:27 | XMS_ITS | Encounter Summary ---
Author Name Unknown Organization [place] Address [address] [place] [address] Care Team Providers Care Inflatable Buildings Laminator Name Role Phone Betty Gupta MD Unavailable [phone] Mehreen Toussaint NP Primary Care Provider Nilton Roach PA-C Unavailable Farzana Sabillon MD Unavailable [phone] Encounter Details Date Type Department Care Team (Latest Contact Info) Description 09/13/2023 Travel Social History Tobacco Use Types Packs/Day [...] Sex Assigned at Female 04/23/2018 4:04 PM GLUE DRIER OPERATOR Gender Identity Female 04/23/2018 4:04 PM GLUE DRIER OPERATOR Sexual Orientation Straight 04/23/2018 4: 04 PM GLUE DRIER OPERATOR documented as of this encounter Plan of Treatment Upcoming Encounters Date Type Department Care Team (Late st Contact Info) Description 10/01/2023 2:00 PM CDT Virtual Visit [facility] [address] [place] [address] Farzana Sabillon MD [address] [place] [address] [place] [address] 11/20/2023 11:00 AM CDT Office Visit [facility] [place] [address] [place] [phone] Jean Guerin MD [address] [place] [address] 12/05/2023 11:00 AM CDT Lab [facility] [address] [place] [phone] 12/12/2023 11:00 AM CDT Virtual Visit [facility] [address] [facility] 200 [place] [phone] Saroj Romeo MD [address] [place], [place] [phone] documented as of this encounter Visit Diagnoses Not on filedocumented in this encounter Additional Health Concerns Assessment Noted Time PHQ-9 Depression Total Score: 2 09/21/19 20 7:02 AM CDT documented as of this encounter Care Teams Inflatable Buildings Laminator Relationship Specialty Start Date End Date Mehreen Toussaint NP [address] [address] PCP - General 03/07/23 [place] [address] [place] [address] Assigned Rheumatology Provider 02/26/20 Nilton Roach PA-C [address] [facility] 100 [place] [address] Assigned PCP 05/30/23 Farzana Sabillon MD [address] [facility] [address] [place] [address] Assigned Endocrinology Provider 08/27/23 documented as of this encounter
--- OUTSIDE RECORDS SUMMARY | 2023-09-18 10:28 | XMS_ITS | Encounter Summary ---
Author Name Unknown Organization [facility] Address [address] [place] [address] Care Team Providers Care Digital Product Specialist Name Role Phone Betty Gupta MD Unavailable [phone] Mehreen Toussaint NP Primary Care Provider Nilton Roach PA-C Unavailable [phone] Reason for Visit * Reason Comments Consult * Consultation (Routine) - Pending Review Specialty Diagnoses / Procedures Referred By Contsapphire t Referred To Contact Endocrinology, Diabetes, and Metabolism Diagnoses Age-related osteoporosis without current pathological fracture Mehrene Toussaint NP [address] [address] Referral ID Status Reason Start Date Expiration Date V isits Requested Visits Authorized [id number] Pending Review 04/11/2023 04/10/2024 1 1 Encounter Details Date Type Department Care Team (Late st Contact Info) Description 08/13/2023 11:30 AM CDT Virtual Visit [facility] [address] [facility] [address] [place] [address] Mehreen Toussaint NP [address] [address] Farzana Sabillon MD [address] [place], [place] [address] Age-related osteoporosis without current pathological fracture Social [...] Sex Assigned at Female 04/23/2018 4:04 PM DICE PERSON Gender Identity Female 04/23/2018 4:04 PM DICE PERSON Sexual Orientation Straight 04/23/2018 4: 04 PM DICE PERSON documented as of this encounter Patient Instructions * Patient Instructions* Farzana Sabillon MD - 08/13/2023 11:30 AM CDT Images from the original note were not included. [facility] Dr Sabillon, Endocrinology Department [address] [place] [address] Appointment [phone] Peel: Saturday - Labs needed. Follow up in [...] mg Cottage cheese 2 cup 300 mg [place] juice with Calcium 8 oz 300 mg [...] and other ways to help your spine. [employer] last reviewed this educational content on 09/03/2017 ?? [phone] The [employer], [employer]. All rights reserved. This information is not [...] mass. Activities include walking, dancing, and housework. Mek-sxksnv-qtfifry exercises. These help prevent back strain and pain. They do this by building thetrunk and leg muscles. Exercises that help with flexibility can prevent falls. Examples include swimming, water exercise, and stretching. Staying safe Here are tips to stay safe: Always check with your healthcare provider before starting any new exercise program. Use weights only as instructed. Stop any exercise that causes pain. [employer] last reviewed this educational content on 09/03/2017 ?? [phone] The [employer]. All rights reserved. This information is not [...] lose more calcium than those who don't. [employer] last reviewed this educational content on 09/03/2017 ?? [phone] The [employer]. All rights reserved. This information is not [...] Low-fat yogurt, plain 415 mg/8 oz. Sardines, [place], canned, with bones 351 mg/3 oz. Oatmeal, instant, fortified 215 mg/1 cup Nonfat milk 302 mg/1 cup [place], sockeye, canned, with bones 239 mg/3 oz. Tofu made with calcium sulfate 204 mg/3 oz. Low-fat milk 297 mg/1 cup Soybeans, fresh, boiled 131 mg/1/2 cup Collards 179 mg/1/2 cup Ghanaian cheese 272 mg/1 oz. White beans, cooked 81 mg/1/2 cup East Timorese muffin, whole wheat 175 mg/1 muffin Cheddar cheese 205 mg/1 oz. [place] beans, cooked 79 mg/1/2 cup Kale 90 mg/1/2 cup Ice cream strawberry 79 mg/1/2 cup [place], navel 56 mg/1 medium Note: Calcium levels [...] reviewed this educational content on 09/03/2017 ?? [phone] The [employer]. All rights reserved. This information is not [...] ended: 11:56 Provider location: working from home/ [facility] Patient location: patients home. Mode of transmission: [facility] video/ [employer] Verbal consent: obtained before starting visit. Pt [...] high fracture risk. DEXA 04/2023( done at [facility]): Osteoporosis with lowest T score -3.8 at hip No comparison done. Mild T6 compression deformity noted on CT chest 12/2022. She does not recall any major trauma. GERD: No Dental health: OK. No major upcoming dental procedure. Kidney function: within normal limits. Previous treatment for osteopenia/osteoporosis: fosamax ( took it X 3 years (5113-0255) and stoppedit 2 years back in 2020). [...] Male Other Topics Concern Parent/sibling w/ CABG, [place] or angioplasty before 65F 55M? Not Asked [...] h/o vertebral fractures? DEXA 04/2023( done at [facility]): Osteoporosis with lowest T score -3.8 at [...] noted in AVS Farzana Sabillon MD Endocrinology [facility] CC: Mehreen Toussaint documented in this encounter Nursing Notes * GarfieldGabriellaby - 08/13/2023 11:30 AM CDT Is the patient currently in the state of [place]? YES Visit mode:VIDEO If the visit is dropped, the patient can be reconnected by: VIDEO VISIT: Text to cell phone: Telephone Information: Will anyone else be joining the visit? NO (If patient encounters technical issues they should call [phone] :[phone]) How would you like to obtain your AVS? MyChart Are changes needed to the allergy or medication list? No Are refills needed on medications prescribed by this physician? Reason for visit: Consult Lisset Merrill VVF documented in this encounter Plan of Treatment Upcoming Encounters Date Type Department Care Team (Late st Contact Info) Description 10/01/2023 2:00 PM CDT Virtual Visit [facility] [address] [facility] [address] [place] [phone] Farzana Sabillon MD [address] [id number] 11/20/2023 11:00 AM CDT Office Visit [facility] [address] [phone] Jean Guerin MD 6401 [place] [address] 12/05/2023 11:00 AM CDT Lab [facility] [address] [place] [address] 12/12/2023 11:00 AM CDT Virtual Visit [facility] [address] [phone] Saroj Romeo MD 420 [place], [place] [address] documented as of this encounter Results * Parathyroid Hormone Intact (09/13/2023 11:26 AM CDT) Pathologist [facility] Parathyroid Hormone Intact 30 15 - 65 [...] MD LAB - BLOOD ORDER [facility] [place] [facility] [address] [facility] * Calcium (09/13/2023 11:26 AM CDT) [facility] Calcium 9.9 8.8 - 10.2 mg/dL 09/14/2023 5:54 PM CDT [facility] Blood BLOOD SPECIMEN / Unknown Venipuncture / Unknown 09/13/2023 11:26 AM CDT 09/13/2023 11:26 AM CDT Farzana Sabillon MD LAB - BLOOD [facility] * (ABNORMAL) Vitamin D Deficiency (09/13/2023 11:26 AM CDT) Pathologist [facility] Vitamin D, Total (25-Hydroxy) 51(H) 20 - 50 ng/mL 09/14/2023 5:54 PM CDT [facility] Comment:indicates supplement ation, with increased risk of hypercalciuria Blood BLOOD SPECIMEN / Unknown Venipuncture / Unknown 09/13/2023 11:26 AM CDT 09/13/2023 11:26 AM CDT Narrative [facility] - 09/14/2023 5:54 PM CDT Season, race, dietary intake, and treatment affect the concentration of 70-sjxgwsv-Xliaoxr D. Values may decrease during winter months and increase during summer months. Vitamin D determination is routinely performed by an immunoassay specific for 25 hydroxyvitamin D3. ??If an individual is on vitamin D2(ergocalciferol) supplementation, please specify 25 OH vitamin D2 and D3 level determination by LCMSMS test VITD23. Farzana Sabillon MD LAB - BLOOD ORDER [facility] [address] [facility] [place] [address] documented in this encounter Visit Diagnoses Diagnosis Age-related osteoporosis without current pathological fracture Senile osteoporosis documented in this encounter Additional Health Concerns Assessment Noted Time PHQ-9 Depression Total Score: 2 09/21/19 7:02 AM CDT documented as of this encounter Care Teams Digital Product Specialist Relationship Specialty Start Date End Date Mehreen Toussaint NP [address] [address] PCP - General 03/07/23 [place] [address] [place] [address] Assigned Rheumatology Provider 02/26/20 Nilton Roach PA-C [address] [place] [address] Assigned PCP 05/30/23 documented as of this encounter
--- OUTSIDE RECORDS SUMMARY | 2023-09-18 10:28 | XMS_ITS | Encounter Summary ---
Author Name Unknown Organization [place] Address [address] [place] [address]. [place] [address] Care Team Providers Care Yarn Worker Name Role Phone Betty Gupta MD Unavailable Mehreen Toussaint NP Primary Care Provider Nilton Roach PA-C Unavailable [phone] Encounter Details Date Type Department Care Team (Latest Contact Info) Description 06/10/2023 12:30 PM BACTERIOLOGIST DAIRY Office Visit [facility] Pulmonary Function Testing [address] [place] [address] Jean Guerin MD [address] [place], [place] [phone] Stage 4 very severe COPD by GOLD [...] Sex Assigned at Female 04/23/2018 4:04 PM BACTERIOLOGIST DAIRY Gender Identity Female 04/23/2018 4:04 PM BACTERIOLOGIST DAIRY Sexual Orientation Straight 04/23/2018 4: 04 PM BACTERIOLOGIST DAIRY documented as of this encounter Progress Notes * Gabrielle Kimbrough - 06/10/2023 12:30 PM CST Six minute walk test done today. ERIOLOGIST DAIRY documented in this encounter Plan of Treatment Upcoming Encounters Date Type Department Care Team (Late st Contact Info) Description 10/01/2023 2:00 PM CDT Virtual Visit [facility] [address] [place] [phone] Farzana Sabillon MD [address] [address] [place], [place] [address] 11/20/2023 11:00 AM CDT Office Visit [facility] [address] [phone] Jean Guerin MD 6401 [place] [address] 12/05/2023 11:00 AM CDT Lab [facility] [address] [place] [phone] 12/12/2023 11:00 AM CDT Virtual Visit [facility] [address] [phone] Saroj Romeo MD 420 [place] [address] documented as of this encounter Procedures Procedure Name Priority Date/Time Associated Diagnosis Comments [place] PULMONARY STRESS TEST Routine 06/10/2023 2:32 PM BACTERIOLOGIST DAIRY Stage 4 very severe COPD by GOLD classification (H) PFT GENERAL LAB TESTING Routine 06/10/2023 2:03 PM BACTERIOLOGIST DAIRY Stage 4 very severe COPD by GOLD classification (H) 6 MINUTE WALK TEST Routine 06/10/2023 Stage 4 very severe COPD by GOLD classification (H) documented in this encounter Results * General PFT Lab (Please always keep checked) (06/10/2023 2:03 PM BACTERIOLOGIST DAIRY) FIO2-Pre 28.00 % BREEZE PFT 06/10/2023 2:03 PM BACTERIOLOGIST DAIRY Narrative BREEZE PFT - 06/13/2023 6:45 PM BACTERIOLOGIST DAIRY IMPRESSION: Hypoxemia with ambulation on room air. Six minute walk distance is reduced indicating a decrease in exercise tolerance. There is significant oxygen desaturation, without hypoxemia, during the six- minute walk done on supplemental oxygen at 2 L/m. Jose G Peters MD ?This interpretation has been electronically signed: ??JOSE G PETERS 06/13/2023 ??06:28:31 PM? Jaen Guerin MD PFT ORDERABL ES LUIS PFT [...] documented as of this encounter Care Teams Yarn Worker Relationship Specialty Start Date End Date Mehreen Toussaint NP [address] [address] PCP - General 03/07/23 [place] [address] [place] [address] Assigned Rheumatology Provider 02/26/20 Nilton Roach PA-C [address] [place] [address] Assigned PCP 05/30/23 documented as of this encounter
--- OUTSIDE RECORDS SUMMARY | 2023-09-18 10:28 | XMS_ITS | Encounter Summary ---
Author Name Unknown Organization [place] Address [address] [place] [address]. [place] [address] Care Team Providers Care Floor Surfacer Name Role Phone Nilton Roach PA-C Primary Care Provider Nilton Roach PA-C Unavailable [phone] Betty Gupta MD Unavailable Keegan Mcdonald MD Unavailable [phone] Jean Guerin MD Unavailable [phone] Mehreen Toussaint NP Primary Care Provider Nilton Roach PA-C Unavailable [phone] Farzana Sabillon MD Unavailable [phone] Encounter Details Date Type Department Care Team (Late st Contact Info) Description 05/25/2022 MyC Medical Advice [facility] [address] [place] [phone] Carol Lloyd Social History Tobacco Use Types Packs/Day Years Used Date Smoking Tobacco: Former Cigarettes 1 40 0 06/06/1979 - 06/06/2019 Smokeless Tobacco: Never Comments:Occasional Alcohol Use Standard Drinks/Week Comments No 0 (1 standard drink = 0.6 oz pur e alcohol) PHQ-2 Answer Date Recorded PHQ-2 Score 0 10/27/2021 Sex and Gender Information Value Date Recorded Sex Assigned at Female 04/23/2018 4:04 PM BOWLING PIN REFINISHER Gender Identity Female 04/23/2018 4:04 PM BOWLING PIN REFINISHER Sexual Orientation Straight 04/23/2018 4: 04 PM BOWLING PIN REFINISHER COVID-19 Exposure Response Date Recorded In the last 10 days, have yo u been in contact with someone who was confirmed or suspected to have Coronavirus/COVID-19? No / Unsure 05/02/2022 10:29 AM BOWLING PIN REFINISHER documented as of this encounter Miscellaneous Notes * Telephone Encounter - Corrie Guidry RMA - 05/30/2022 3:48 PM CST Benlysta [place] form completed and faxed. GRETCHEN Fraser Email: [email or web address] - Rheumatology ING PIN REFINISHER documented in this encounter Plan of Treatment Upcoming Encounters Date Type Department Care Team (Late st Contact Info) Description 10/01/2023 2:00 PM CDT Virtual Visit [facility] [address] [facility] [address] [place] [phone] Farzana Sabillon MD [address] [place], [place] [address] 11/20/2023 11:00 AM CDT Office Visit [facility] [address] [phone] Jean Guerin MD [address] [place] [address] 12/05/2023 11:[address] [facility] [address] [place] [phone] 12/12/2023 11:00 AM CDT Virtual Visit [facility] [address] [facility] [address] [place] [phone] Saroj Romeo MD [address] [place] [address] documented as of this encounter Visit Diagnoses Not on filedocumented in this encounter Additional Health Concerns Assessment Noted Time PHQ-9 Depression Total Score: 2 09/21/19 20 7:02 AM CDT documented as of this encounter Care Teams Floor Surfacer Relationship Specialty Start Date End Date Nilton Roach PA-C [address] [place] [address] PCP - General Physician Binder Sorter 01/02/17 03/06/23 Mehreen Toussaint NP [address] [address] PCP - General 03/07/23 Nilton Roach PA-C [address] [place] [address] Assigned PCP 12/13/16 12/21/22 [place] [address] [place] [address] Assigned Rheumatology Provider 02/26/20 [place] [address] [place] [address] Assigned Pulmonology Provider 12/30/21 05/03/23 Jean Guerin MD [address] [place] [address] Assigned PCP 12/22/22 05/29/23 Nilton Roach PA-C [address] [place] [address] Assigned PCP 05/30/23 Farzana Sabillon MD [address] [place] [address] 200 [place] [address] Assigned Endocrinology Provider 08/27/23 documented as of this encounter
--- OUTSIDE RECORDS SUMMARY | 2023-09-18 10:28 | XMS_ITS | Encounter Summary ---
Author Name Unknown Organization [facility] Address [address] [place] [address] Care Team Providers Care Retrofit Installer Name Role Phone Nilton Roach PA-C Primary Care Provider Betty Gupta MD Unavailable Keegan Mcdonald MD Unavailable [phone] Jean Guerin MD Unavailable [phone] Mehreen Toussaint NP Primary Care Provider Nilton Roach PA-C Unavailable [phone] Farzana Sabillon MD Unavailable [phone] Encounter Details Date Type Department Care Team (Late st Contact Info) Description 02/14/2023 [facility] [address] [phone] [facility] Social History Tobacco Use Types Packs/Day [...] FILM CRITIC documented as of this encounter Plan of Treatment Upcoming Encounters Date Type Department Care Team (Late st Contact Info) Description 10/01/2023 2:00 PM CDT Virtual Visit [facility] [address] [place] [phone] Farzana Sabillon MD [address] [facility] [address] [place], [place] [address] 11/20/2023 11:00 AM CDT Office Visit [facility] [address] [phone] Jean Guerin MD [address]01 [place] [address] 12/05/2023 11:00 AM CDT Lab [facility] [address] [place] [address] 12/12/2023 11:00 AM CDT Virtual Visit [facility] [address] [phone] Saroj Romeo MD 420 [place], [place] [address] documented as of this encounter Visit Diagnoses Not on filedocumented in this encounter Additional Health Concerns Assessment Noted Time PHQ-9 Depression Total Score: 2 09/21/19 20 7:02 AM CDT documented as of this encounter Care Teams Retrofit Installer Relationship Specialty Start Date End Date Nilton Roach PA-C [address] [facility] 100 [place] [address] PCP - General Physician Outdoor Studies Professor 01/02/17 03/06/23 Mehreen Toussaint NP [facility] [address] [place] [address] PCP - General 03/07/23 [place] [address] [place] [address] Assigned Rheumatology Provider 02/26/20 [place] [address] [facility] [place] [address] Assigned Pulmonology Provider 12/30/21 05/03/23 Jean Guerin MD [address] [place] [address] Assigned PCP 12/22/22 05/29/23 Nilton Roach PA-C [address] [place] [address] Assigned PCP 05/30/23 Farzana Sabillon MD [address] [place] [address] Assigned Endocrinology Provider 08/27/23 documented as of this encounter
--- OUTSIDE RECORDS SUMMARY | 2023-09-18 10:28 | XMS_ITS | Encounter Summary ---
Author Name Unknown Organization [place] Address [address] [place] [address] Care Team Providers Care Fountain Pen Nibs Inspector Name Role Phone Betty Gupta MD Unavailable [phone] Mehreen Toussaint NP Primary Care Provider Nilton Roach PA-C Unavailable [phone] Encounter Details Date Type Department Care Team (Late st Contact Info) Description 08/12/2023 11:00 AM CDT Lab [facility] [address] [place] [address] Systemic lupus erythematosus, organ or system [...] Sex Assigned at Female 04/23/2018 4:04 PM SERVER ASSISTANT Gender Identity Female 04/23/2018 4:04 PM SERVER ASSISTANT Sexual Orientation Straight 04/23/2018 4: 04 PM SERVER ASSISTANT documented as of this encounter Miscellaneous Notes [...] Description 10/01/2023 2:00 PM CDT Virtual Visit [facility] [address] [place] [phone] Farzana Sabillon MD [address] [place] [address] 200 [place], [place] [address] 11/20/2023 11:00 AM CDT Office Visit [facility] for [facility] and Health [address] [phone] Jean Guerin MD [address]01 [place] [address] 12/05/2023 11:00 AM CDT Lab [facility] [address] [place] [address] 12/12/2023 11:00 AM CDT Virtual Visit [facility] [address] [place] [phone] Saroj Romeo MD 420 [place], [place] [address] documented as of this encounter Procedures Procedure [...] AM CDT 08/12/2023 11:01 AM CDT Narrative LABORATORY - 08/12/2023 11:12 AM CDT Urine Culture not indicated Betty Gupta MD LAB - URINE ORDERABL ES LABORATORY [facility] Lab [address] [facility] Lab (no room number, 1st floor of clinic) [place] [address], [facility] [phone] * Erythrocyte sedimentation rate auto (08/12/2023 10:50 AM CDT) Erythrocyte Sedimentation Rate 22 0 - 30 mm/hr 08/12/2023 11:04 AM CDT LV LABORATORY Blood BLOOD SPECIMEN / Unknown Venipuncture / Unknown 08/12/2023 10:50 AM CDT 08/12/2023 10:50 AM CDT Betty Gupta MD LAB - BLOOD ORDERABL ES [facility] Lab [address] [facility] Lab (no room number, 1st floor of clinic) [place] [address], [facility] [phone] * CRP inflammation (08/12/2023 10:50 AM CDT) CRP Inflammation <3.00 <5.00 mg/L 08/13/19 12:19 AM CDT UU LABORATORY Blood BLOOD SPECIMEN / Unknown Venipuncture / Unknown 08/12/2023 10:50 AM CDT 08/12/2023 10:50 AM CDT Betty Gupta MD LAB - BLOOD ORDERABL ES UU LABORATORY [facility] [place] [facility] [address] [facility], Room [address] [place] [address] * Protein random urine (08/12/2023 10:50 [...] LAB - URINE ORDERABL ES UU LABORATORY [facility] [place] [facility] [address] [facility], Room [address] [place] [address], [facility] * (ABNORMAL) Routine UA with [...] 08/12/2023 11:12 AM CDT LV LABORATORY Specific [place] Urine 1.020 1.003 - 1.035 08/12/2023 11:12 [...] LAB - URINE ORDERABL ES LV LABORATORY [facility] Lab [address] [facility] Lab (no room number, 1st floor of clinic) [place] [address], [facility] [phone] * Complement C4 (08/12/2023 10:50 AM CDT) C4 Complement 21 13 - 39 mg/dL 08/13/2023 1:49 PM CDT [facility] SPECIALTY CORE/PROT/ENDO Blood BLOOD SPECIMEN / Unknown Venipuncture / Unknown 08/12/2023 10:50 AM CDT 08/12/2023 10:50 AM CDT Betty Gupta MD LAB - BLOOD ORDERABL ES UM SPECIALTY CORE/PROT/ENDO Specialty Core/Prot/Endo [address] [facility], Room [address] * Complement C3 (08/12/2023 10:50 AM CDT) C3 Complement 138 81 - 157 mg/dL 08/13/2023 1:49 PM CDT SPECIALTY CORE/PROT/ENDO Blood BLOOD SPECIMEN / Unknown Venipuncture / Unknown 08/12/2023 10:50 AM CDT 08/12/2023 10:50 AM CDT Betty Gupta MD LAB - BLOOD ORDERABL ES Performing Organization Address City/[facility] Co de Phone Number SPECIALTY CORE/PROT/ENDO Specialty Core/Prot/Endo [address] [facility], [address] * DNA ANTIBODY, NATV/2 STRAND (08/12/2023 [...] ES UM SPECIALTY CORE/PROT/ENDO Specialty Core/Prot/Endo [address] [facility], [address] * Creatinine (08/12/2023 10:50 AM CDT) Creatinine 0.65 0.51 - 0.95 mg/dL 08/13/2023 12:19 AM CDT UU LABORATORY GFR Estimate >90 >60 mL/min/1.73 m2 08/13/2023 12:19 AM CDT UU LABORATORY Blood BLOOD SPECIMEN / Unknown Venipuncture / Unknown 08/12/2023 10:50 AM CDT 08/12/2023 10:50 AM CDT Betty Gupta MD LAB - BLOOD ORDERABL ES UU LABORATORY [facility] Core Lab [address] [facility], Room [address] [place] [address] * Albumin level (08/12/2023 10:50 AM CDT) Albumin 4.4 3.5 - 5.2 g/dL 08/13/2023 12:19 AM CDT UU LABORATORY Blood BLOOD SPECIMEN / Unknown Venipuncture / Unknown 08/12/2023 10:50 AM CDT 08/12/2023 10:50 AM CDT Betty Gupta MD LAB - BLOOD ORDERABL ES UU LABORATORY [facility] [place] [facility] [address] [facility], [address] * ALT (08/12/2023 10:50 AM CDT) ALT 19 0 - 50 U/L 08/13/2023 12:19 AM CDT UU LABORATORY Blood BLOOD SPECIMEN / Unknown Venipuncture / Unknown 08/12/2023 10:50 AM CDT 08/12/2023 10:50 AM CDT Betty Gupta MD LAB - BLOOD ORDERABL ES UU LABORATORY [facility] [place] [facility] [address] [facility], [address] * AST (08/12/2023 10:50 AM CDT) Pathologist [facility] AST 16 0 - 45 U/L 08/13/2023 12:19 AM CDT UU LABORATORY Blood BLOOD SPECIMEN / Unknown Venipuncture / Unknown 08/12/2023 10:50 AM CDT 08/12/2023 10:50 AM CDT Betty Gupta MD LAB - BLOOD ORDERABL ES UU LABORATORY [facility] [place] [facility] [address] [facility], [address] * CBC with platelets (08/12/2023 10:50 AM CDT) Pathologist [facility] WBC Count 6.9 4.0 - 11.0 10e3/uL [...] LAB - BLOOD ORDERABL ES LV LABORATORY [facility] Lab [address] [facility] Lab (no room number, 1st floor of clinic) [place] [address], [facility] [phone] documented in this encounter Visit Diagnoses Diagnosis Systemic lupus erythematosus, organ or system involvement unspecified (H) Antiphospholipid syndrome (H24) Primary hypercoagulable state Encounter for screening for other viral diseases documented in this encounter Additional Health Concerns Assessment Noted Time PHQ-9 Depression Total Score: 2 09/21/19 20 7:02 AM CDT documented as of this encounter Care Teams Fountain Pen Nibs Inspector Relationship Specialty Start Date End Date Mehreen Toussaint NP [address] [address] PCP - General 03/07/23 [place] [address] [place] [address] Assigned Rheumatology Provider 02/26/20 Nilton Roach PA-C [address] [place] [address] Assigned PCP 05/30/23 documented as of this encounter
--- OUTSIDE RECORDS SUMMARY | 2023-09-18 10:28 | XMS_ITS | Encounter Summary ---
Author Name Unknown Organization [facility] Address [address] [place] [address]. [place] [address] Care Team Providers Care Despatching And Receiving Clerk Name Role Phone Betty Gupta MD Unavailable Mehreen Toussaint NP Primary Care Provider Nilton Roach PA-C Unavailable Encounter Details Date Type Department Care Team (Late st Contact Info) Description 07/16/2023 Telephone [facility] [address] [address] [place] [address] [place] [address]679 Social History Tobacco Use Types Packs/Day Years [...] Sex Assigned at Female 04/23/2018 4:04 PM BATHHOUSE ATTENDANT Gender Identity Female 04/23/2018 4:04 PM BATHHOUSE ATTENDANT Sexual Orientation Straight 04/23/2018 4: 04 PM BATHHOUSE ATTENDANT documented as of this encounter Miscellaneous Notes * Telephone Encounter - Marilyn Tello - 07/23/2023 1:26 PM CDT M for PT to call [phone] the [address] Gupta appt. * [...] Visit [facility] [address] [facility] 200 [place] [phone] Farzana Sabillon MD [address] [place] [address] 200 [place], [place] [address] 11/20/2023 11:00 AM CDT Office Visit [facility] [place] [address] [place] [phone] Jean Guerin MD 6401 [place] [address] 12/05/2023 11:00 AM CDT Lab [facility] [address] [place] [address] 12/12/2023 11:00 AM CDT Virtual Visit [facility] [place] [address] [place] [phone] Saroj Romeo MD 420 [place], [place] [address] documented as of this encounter Visit Diagnoses Not on filedocumented in this encounter Additional Health Concerns Assessment Noted Time PHQ-9 Depression Total Score: 2 09/21/19 20 7:02 AM CDT documented as of this encounter Care Teams Despatching And Receiving Clerk Relationship Specialty Start Date End Date Mehreen Toussaint NP [address] [address] PCP - General 03/07/23 [place] [address] [place] [address] Assigned Rheumatology Provider 02/26/20 Nilton Roach PA-C [address] [place] [address] 100 [place] [address] Assigned PCP 05/30/23 documented as of this encounter
--- OUTSIDE RECORDS SUMMARY | 2023-09-18 10:28 | XMS_ITS | Encounter Summary ---
Author Name Unknown Organization [place] Address [address] [place] [address]. [place] [address] Care Team Providers Care Booking Police Officer Name Role Phone Betty Gupta MD Unavailable [phone] Mehreen Toussaint NP Primary Care Provider Nilton Roach PA-C Unavailable [phone] Encounter Details Date Type Department Care Team (Late st Contact Info) Description 06/14/2023 Telephone [facility] for [facility] Clinic [address] [address] Jean Guerin MD 6400 [place] [address] Social History Tobacco Use Types Packs/Day Years [...] Sex Assigned at Female 04/23/2018 4:04 PM DENTAL APPLIANCE FIXER Gender Identity Female 04/23/2018 4:04 PM DENTAL APPLIANCE FIXER Sexual Orientation Straight 04/23/2018 4: 04 PM DENTAL APPLIANCE FIXER documented as of this encounter Miscellaneous Notes * Telephone Encounter - Luiz Sandoval RT - 06/14/2023 1:36 PM CST Faxed cover sheet, demographic sheet, notes, 6MWT and signed order for home oxygen. Faxed to Tricia at [phone]. RT [place] APPLIANCE FIXER documented in this encounter Plan of Treatment Upcoming Encounters Date Type Department Care Team (Late st Contact Info) Description 10/01/2023 2:00 PM CDT Virtual Visit [facility] [address] [facility] [address] [place] [phone] Farzana Sabillon MD [address] [place] [address] 200 [place] [address] 11/20/2023 11:00 AM CDT Office Visit [facility] for [facility] Health [address] [phone] Jean Guerin MD 6401 [place] [address] 12/05/2023 11:00 AM CDT Lab [facility] [address] [place] [phone] 12/12/2023 11:00 AM CDT Virtual Visit [facility] [place] [address] [place] [phone] Saroj Romeo MD 420 [place], [place] [address] documented as of this encounter Visit Diagnoses Not on filedocumented in this encounter Additional Health Concerns Assessment Noted Time PHQ-9 Depression Total Score: 2 09/21/19 20 7:02 AM CDT documented as of this encounter Care Teams Booking Police Officer Relationship Specialty Start Date End Date Mehreen Toussaint NP [facility] 225 [place] [address] PCP - General 03/07/23 [place] [address] [facility] [place] [address] Assigned Rheumatology Provider 02/26/20 Nilton Roach PA-C 290 [facility] 100 [place] [address] Assigned PCP 05/30/23 documented as of this encounter
--- OUTSIDE RECORDS SUMMARY | 2023-09-18 10:28 | XMS_ITS | Encounter Summary ---
Author Name Unknown Organization [facility] Address [address] [place] [address] Care Team Providers Care Pest Technician Name Role Phone Nilton Roach PA-C Primary Care Provider Nilton Roach PA-C Unavailable [phone] Betty Gupta MD Unavailable [phone] Gray Lora MD Unavailable [phone] Nik Bryan MD Unavailable Keegan Mcdonald MD Unavailable Keegan Mcdonald MD Unavailable Jean Guerin MD Unavailable [phone] Mehreen Toussaint NP Primary Care Provider Nilton Roach PA-C Unavailable [phone] Farzana Sabillon MD Unavailable [phone] Encounter Details Date Type Department Care Team (Late st Contact Info) Description 05/11/2021 [facility] Medical Advice [address], [address] [place] [address] Chana Barekr Social History Tobacco Use Types Packs/Day Years Used Date Smoking Tobacco: Former Cigarettes 1 40 0 06/06/1979 - 06/06/2019 Smokeless Tobacco: Never Comments:Occasional Alcohol Use Standard Drinks/Week Comments No 0 (1 standard drink = 0.6 oz pur e alcohol) PHQ-2 Answer Date Recorded PHQ-2 Score 0 04/05/2021 Sex and Gender Information Value Date Recorded Sex Assigned at Female 04/23/2018 4:04 PM HUMAN RESOURCES ADVISOR Gender Identity Female 04/23/2018 4:04 PM HUMAN RESOURCES ADVISOR Sexual Orientation Straight 04/23/2018 4: 04 PM HUMAN RESOURCES ADVISOR documented as of this encounter Plan of Treatment Upcoming Encounters Date Type Department Care Team (Late st Contact Info) Description 10/01/2023 2:00 PM CDT Virtual Visit [facility] [address] [place] [phone] Farzana Sabillon MD [address] [place] [address] 200 [place], [place] [address] 11/20/2023 11:00 AM CDT Office Visit [facility] for [facility] Science [facility] Health Clinic [address] [phone] Jean Guerin MD [address] [place] [address] 12/05/2023 11:00 AM CDT Lab [facility] [address] [place] [phone] 12/12/2023 11:00 AM CDT Virtual Visit [facility] [place] [address] [phone] Saroj Romeo MD 420 [place], [place] [address] documented as of this encounter Visit Diagnoses Not on filedocumented in this encounter Additional Health Concerns Assessment Noted Time PHQ-9 Depression Total Score: 2 09/21/19 20 7:02 AM CDT documented as of this encounter Care Teams Pest Technician Relationship Specialty Start Date End Date Nilton Roach PA-C [address] [place] [address] PCP - General Physician Soil Chemist 01/02/17 03/06/23 Mehreen Toussaint NP [address] [address] PCP - General 03/07/23 Nilton Roach PA-C [address] [place] [address] Assigned PCP 12/13/16 12/21/22 [place] [address] [place] [address] Assigned Rheumatology Provider 02/26/20 Gray Lora MD [address] [place] [address] Assigned Pulmonology Provider 02/26/20 05/27/21 Nik Bryan MD [address] [place] [address]27745 Assigned Cancer Care Provider 02/26/20 11/17/21 Keegan Mcdonald MD [address] [place] [address] Assigned Pulmonology Provider 07/09/21 09/02/21 Keegan Mcdonald MD [address] [place] [address]22[address] Assigned Pulmonology Provider 12/30/21 05/03/23 Jean Guerin MD [address]01 [place] [address] Assigned PCP 12/22/22 05/29/23 Nilton Roach PA-C [address] [facility] 100 [place] [address] Assigned PCP 05/30/23 Farzana Sabillon MD [address] [facility] 200 [place] [address] Assigned Endocrinology Provider 08/27/23 documented as of this encounter
--- OUTSIDE RECORDS SUMMARY | 2023-09-18 10:28 | XMS_ITS | Encounter Summary ---
Author Name Unknown Organization [place] Address [address] [place] [address] Care Team Providers Care Desk Sergeant Name Role Phone Betty Gupta MD Unavailable Keegan Mcdonald MD Unavailable Jean Guerin MD Unavailable [phone] Mehreen Toussaint NP Primary Care Provider [phone] Nilton Roach PA-C Unavailable Farzana Sabillon MD Unavailable Encounter Details Date Type Department Care Team (Late st Contact Info) Description 04/19/2023 MyC Medical Advice [facility] [address] [place] [phone] Sultana Kim Social History Tobacco Use [...] Sex Assigned at Female 04/23/2018 4:04 PM SHIPPING & RECEIVING LEAD Gender Identity Female 04/23/2018 4:04 PM SHIPPING & RECEIVING LEAD Sexual Orientation Straight 04/23/2018 4: 04 PM SHIPPING & RECEIVING LEAD documented as of this encounter Plan of Treatment Upcoming Encounters Date Type Department Care Team (Late st Contact Info) Description 10/01/2023 2:00 PM CDT Virtual Visit [facility] [address] [place] [phone] Farzana Sabillon MD [address] [place] 200 [place] [address] 11/20/2023 11:00 AM CDT Office Visit [facility] for [facility] Health [facility] 909 [place] [phone] Jean Guerin MD 6401 [place] [address] 12/05/2023 11:00 AM CDT Lab [facility] [address] [place] [phone] 12/12/2023 11:00 AM CDT Virtual Visit [facility] 65[address] [facility] 200 [place] [phone] Saroj Romeo MD 420 [place], [place] [address] documented as of this encounter Visit Diagnoses Not on filedocumented in this encounter Additional Health Concerns Assessment Noted Time PHQ-9 Depression Total Score: 2 09/21/19 20 7:02 AM CDT documented as of this encounter Care Teams Desk Sergeant Relationship Specialty Start Date End Date Mehreen Toussaint NP [address] [address] PCP - General 03/07/23 [place] [address] [place] [address] Assigned Rheumatology Provider 02/26/20 [place] [address] [facility] [place] [address] Assigned Pulmonology Provider 12/30/21 05/03/23 Jean Guerin MD [address] [facility] [place] [address] Assigned PCP 12/22/22 05/29/23 Nilton Roach PA-C [address] [facility] 100 [place], [place] [address] Assigned PCP 05/30/23 Farzana Sabillon MD [address] [facility] 200 [place], [place] [address] Assigned Endocrinology Provider 08/27/23 documented as of this encounter
--- OUTSIDE RECORDS SUMMARY | 2023-09-18 10:28 | XMS_ITS | Encounter Summary ---
Author Name Unknown Organization [place] Address [address] [place] [address] Care Team Providers Care Billing And Quality Technician Name Role Phone Nilton Roach PA-C Primary Care Provider Nilton Roach PA-C Unavailable [phone] Betty Gupta MD Unavailable Keegan Mcdonald MD Unavailable [phone] Jean Guerin MD Unavailable [phone] Mehreen Toussaint NP Primary Care Provider Nilton Roach PA-C Unavailable [phone] Farzana Sabillon MD Unavailable [phone] Encounter Details Date Type Department Care Team (Late st Contact Info) Description 10/29/2022 MyC Medical Advice [address] [address] Faith Farnsworth, RN Social History [...] Sex Assigned at Female 04/23/2018 4:04 PM FUR GLAZER Gender Identity Female 04/23/2018 4:04 PM FUR GLAZER Sexual Orientation Straight 04/23/2018 4: 04 PM FUR GLAZER documented as of this encounter Plan of Treatment Upcoming Encounters Date Type Department Care Team (Late st Contact Info) Description 10/01/2023 2:00 PM CDT Virtual Visit [facility] [address] [place] [phone] Farzana Sabillon MD [address] 200 [place], [place] [address] 11/20/2023 11:00 AM CDT Office Visit [facility] for [facility] Health [address] [phone] Jean Guerin MD 6401 [place] [address] 12/05/2023 11:00 AM CDT Lab [facility] [address] [place] [address] 12/12/2023 11:00 AM CDT Virtual Visit [facility] [place] [address] [phone] Saroj Romeo MD 420 [place], [place] [phone] documented as of this encounter Visit Diagnoses Not on filedocumented in this encounter Additional Health Concerns Assessment Noted Time PHQ-9 Depression Total Score: 2 09/21/19 20 7:02 AM CDT documented as of this encounter Care Teams Billing And Quality Technician Relationship Specialty Start Date End Date Nilton Roach PA-C [address] [place] [address] [address] [place] [address] PCP - General Physician Paid Intern 01/02/17 03/06/23 Mehreen Toussaint NP [facility] 225 [place] [address] PCP - General 03/07/23 Nilton Roach PA-C [address] [facility] 100 [place] [address] Assigned PCP 12/13/16 12/21/22 [place] [address] [place] [address] Assigned Rheumatology Provider 02/26/20 [place] [address] [place] [address] Assigned Pulmonology Provider 12/30/21 05/03/23 Jean Guerin MD [address] [facility] [place] [address] Assigned PCP 12/22/22 05/29/23 Nilton Roach PA-C 290 [facility] [address] [place] [address] Assigned PCP 05/30/23 Farzana Sabillon MD [address] [place] 200 [place] [address] Assigned Endocrinology Provider 08/27/23 documented as of this encounter
--- OUTSIDE RECORDS SUMMARY | 2023-09-18 10:28 | XMS_ITS | Encounter Summary ---
Author Name Unknown Organization [place] Address [address] [place] [address]. [place] [address] Care Team Providers Care Hogshead Press Operator Name Role Phone Nilton Roach PA-C Primary Care Provider Nilton Roach PA-C Unavailable Betty Gupta MD Unavailable [phone] Gray Lora MD Unavailable Nik Bryan MD Unavailable Keegan Mcdonald MD Unavailable Keegan Mcdonald MD Unavailable Jean Guerin MD Unavailable [phone] Mehreen Toussaint NP Primary Care Provider [phone] Nilton Roach PA-C Unavailable Farzana Sabillon MD Unavailable Encounter Details Date Type Department Care Team (Late st Contact Info) Description 05/03/2021 [facility] [address] [address] [place] [address] [place] [address] Social History Tobacco Use Types Packs/Day Years Used Date Smoking Tobacco: Former Cigarettes 1 40 0 06/06/1979 - 06/06/2019 Smokeless Tobacco: Never Comments:Occasional Alcohol Use Standard Drinks/Week Comments No 0 (1 standard drink = 0.6 oz pur e alcohol) PHQ-2 Answer Date Recorded PHQ-2 Score 0 04/05/2021 Sex and Gender Information Value Date Recorded Sex Assigned at Female 04/23/2018 4:04 PM SHEETER HELPER Gender Identity Female 04/23/2018 4:04 PM SHEETER HELPER Sexual Orientation Straight 04/23/2018 4: 04 PM SHEETER HELPER COVID-19 Exposure Response Date Recorded In the last month, have you been in contact with someone who was confirmed or suspected to have Coronavirus / COVID-19? No / Unsure 04/05/2021 3:25 PM SHEETER HELPER documented as of this encounter Plan of Treatment Upcoming Encounters Date Type Department Care Team (Late st Contact Info) Description 10/01/2023 2:00 PM CDT Virtual Visit [facility] [address] [place] [phone] Farzana Sabillon MD [address] 200 [place], [place] [address] 11/20/2023 11:00 AM CDT Office Visit [facility] [place] [address] [place] [phone] [place] [address] [place] [address] 12/05/2023 11:00 AM CDT Lab [facility] [address] [place] [address] 12/12/2023 11:00 AM CDT Virtual Visit [facility] [place] 6525 [facility] 200 [place] [address] Saroj Romeo MD 420 [place], [place] [phone] documented as of this encounter Visit Diagnoses Not on filedocumented in this encounter Additional Health Concerns Assessment Noted Time PHQ-9 Depression Total Score: 2 09/21/19 20 7:02 AM CDT documented as of this encounter Care Teams Hogshead Press Operator Relationship Specialty Start Date End Date Nilton Roach PA-C [address] [address] PCP - General Physician Tooth Inspector 01/02/17 03/06/23 Mehreen Toussaint NP [address] [address] PCP - General 03/07/23 Nilton Roach PA-C [address] [place] [address] Assigned PCP 12/13/16 12/21/22 [place] [address] [facility] [place], [place] [address] Assigned Rheumatology Provider 02/26/20 Gray Lora MD [address] [place] [address] Assigned Pulmonology Provider 02/26/20 05/27/21 Nik Bryan MD [address] [place] [address] Assigned Cancer Care Provider 02/26/20 11/17/21 Keegan Mcdonald MD 6401 [facility] [place] [facility] [place] 63[address] Assigned Pulmonology Provider 07/09/21 09/02/21 Keegan Mcdonald MD [address] [place] [place] [address] Assigned Pulmonology Provider 12/30/21 05/03/23 Jean Guerin MD [address] [address] Assigned PCP 12/22/22 05/29/23 Nilton Roach PA-C 290 [facility] [address] [place] [address] Assigned PCP 05/30/23 Farzana Sabillon MD [address] [place], [place] [address] Assigned Endocrinology Provider 08/27/23 documented as of this encounter
--- OUTSIDE RECORDS SUMMARY | 2023-09-18 10:28 | XMS_ITS | Encounter Summary ---
Author Name Unknown Organization [place] Address [address] [place] [address] Care Team Providers Care Public Speaking Coach Name Role Phone Betty Gupta MD Unavailable [phone] Mehreen Toussaint NP Primary Care Provider Nilton [...] Sex Assigned at Female 04/23/2018 4:04 PM CRIMINAL ANALYST Gender Identity Female 04/23/2018 4:04 PM CRIMINAL ANALYST Sexual Orientation Straight 04/23/2018 4: 04 PM CRIMINAL ANALYST documented as of this encounter Plan of Treatment Upcoming Encounters Date Type Department Care Team (Late st Contact Info) Description 10/01/2023 2:00 PM CDT Virtual Visit [facility] [address] [place] [address] Farzana Sabillon MD [address] [place] [address] 11/20/2023 11:00 AM CDT Office Visit [facility] [place] 909 [place] [phone] Jean Guerin MD 6401 [place] [address] 12/05/2023 11:00 AM CDT Lab [facility] [address] [place] [address] 12/12/2023 11:00 AM CDT Virtual Visit [facility] 6525 [facility] 200 [place] [phone] Saroj Romeo MD 420 [place], [place] [address] documented as of this encounter Visit Diagnoses Not on filedocumented in this encounter Additional Health Concerns Assessment Noted Time PHQ-9 Depression Total Score: 2 09/21/19 20 7:02 AM CDT documented as of this encounter Care Teams Public Speaking Coach Relationship Specialty Start Date End Date Mehreen Toussaint NP [address] [address] PCP - General 03/07/23 [place] [address] [place] [address] Assigned Rheumatology Provider 02/26/20 Nilton Roach PA-C [address] [address] Assigned PCP 05/30/23 documented as of this encounter
--- OUTSIDE RECORDS SUMMARY | 2023-09-18 10:28 | XMS_ITS | Encounter Summary ---
Author Name Unknown Organization [place] Address [address] [place] [address]. [place] [address] Care Team Providers Care Qa Reviewer Name Role Phone Betty Gupta MD Unavailable Mehreen Toussaint NP Primary Care Provider [phone] Nilton Roach PA-C Unavailable [phone] Reason for Visit * Reason Onset Date Comments Fax 07/11/2023 Encounter Details Date Type Department Care Team (Late st Contact Info) Description 07/11/2023 Telephone [facility] [address] [address] Jean Guerin MD [address] [place] [address] Fax Social History Tobacco Use Types Packs/Day [...] Sex Assigned at Female 04/23/2018 4:04 PM CARBON BRUSH MAKER Gender Identity Female 04/23/2018 4:04 PM CARBON BRUSH MAKER Sexual Orientation Straight 04/23/2018 4: 04 PM CARBON BRUSH MAKER documented as of this encounter Miscellaneous Notes * Telephone Encounter - Sabina Kwan - 07/11/2023 2:43 PM CST Tubing set up kit order signed and faxed to [employer] at [phone] ON BRUSH MAKER documented in this encounter Plan of Treatment Upcoming Encounters Date Type Department Care Team (Late st Contact Info) Description 10/01/2023 2:00 PM CDT Virtual Visit [facility] [address] [place] [phone] Farzana Sabillon MD [address] 200 [place] [address] 11/20/2023 11:00 AM CDT Office Visit [facility] [address] [phone] Jean Guerin MD 6401 [place] [address] 12/05/2023 11:00 AM CDT Lab [facility] [address] [place] [phone] 12/12/2023 11:00 AM CDT Virtual Visit [facility] [place] 6525 [facility] 200 [place] [phone] Saroj Romeo MD 420 [place], [place] [address] documented as of this encounter Visit Diagnoses Not on filedocumented in this encounter Additional Health Concerns Assessment Noted Time PHQ-9 Depression Total Score: 2 09/21/19 20 7:02 AM CDT documented as of this encounter Care Teams Qa Reviewer Relationship Specialty Start Date End Date Mehreen Toussaint NP [address] [address] PCP - General 03/07/23 [place] [address] [place] [address] Assigned Rheumatology Provider 02/26/20 Nilton Roach PA-C [address] [place] [address] 100 [place] [address] Assigned PCP 05/30/23 documented as of this encounter
--- OUTSIDE RECORDS SUMMARY | 2023-09-18 10:28 | XMS_ITS | Encounter Summary ---
Author Name Unknown Organization [place] Address [address] [place] [address]. [place] [address] Care Team Providers Care Tariff Compiling Clerk Name Role Phone Betty Gupta MD Unavailable Mehreen Toussaint NP Primary Care Provider Nilton Roach PA-C Unavailable [phone] Encounter Details Date Type Department Care Team (Late st Contact Info) Description 06/13/2023 [facility] [place] [facility] [address] [address] Jean Guerin MD 6405 [place] [address] Social History Tobacco Use Types Packs/Day Years [...] Sex Assigned at Female 04/23/2018 4:04 PM SALES ADVISOR Gender Identity Female 04/23/2018 4:04 PM SALES ADVISOR Sexual Orientation Straight 04/23/2018 4: 04 PM SALES ADVISOR documented as of this encounter Miscellaneous Notes * Telephone Encounter - Marcelle Hopsno RN - 06/14/2023 10:[address] Guerin placed oxygen order and addended note. Bicycle Repairer forwarded message to Luis Sandoval to get home oxygen set up for patient with [employer]. S ADVISOR documented in this encounter Plan of Treatment Upcoming Encounters Date Type Department Care Team (Late st Contact Info) Description 10/01/2023 2:00 PM CDT Virtual Visit [facility] [address] [facility] [address] [place] [phone] Farzana Sabillon MD [address] [place] [address] 200 [place] [address] 11/20/2023 11:00 AM CDT Office Visit [facility] [address] [phone] Jean Guerin MD 6401 [place] [address] 12/05/2023 11:00 AM CDT Lab [facility] [address] [place] [address] 12/12/2023 11:00 AM CDT Virtual Visit [facility] [place] [address] [phone] Saroj Romeo MD 420 [place], [place] [address] documented as of this encounter Visit Diagnoses Not on filedocumented in this encounter Additional Health Concerns Assessment Noted Time PHQ-9 Depression Total Score: 2 09/21/19 20 7:02 AM CDT documented as of this encounter Care Teams Tariff Compiling Clerk Relationship Specialty Start Date End Date Mehreen Toussaint NP [facility] 225 [place] [address] PCP - General 03/07/23 [place] [address] [place] [address] Assigned Rheumatology Provider 02/26/20 Nilton Roach PA-C 290 [facility] 100 [place] [address] Assigned PCP 05/30/23 documented as of this encounter
--- OUTSIDE RECORDS SUMMARY | 2023-09-18 10:28 | XMS_ITS | Encounter Summary ---
Author Name Unknown Organization [place] Address [address] [place] [address] Care Team Providers Care Software Integration Developer Name Role Phone Betty Gupta MD Unavailable [phone] Mehreen Toussaint NP Primary Care Provider Nilton Roach PA-C Unavailable [phone] Encounter Details Date Type Department Care Team [...] Sex Assigned at Female 04/23/2018 4:04 PM TRACK RIDER Gender Identity Female 04/23/2018 4:04 PM TRACK RIDER Sexual Orientation Straight 04/23/2018 4: 04 PM TRACK RIDER documented as of this encounter Plan of Treatment Upcoming Encounters Date Type Department Care Team (Late st Contact Info) Description 10/01/2023 2:00 PM CDT Virtual Visit [facility] [address] [place] [address] Farzana Sabillon MD [address] [place] [address] 11/20/2023 11:00 AM CDT Office Visit [facility] [place] 909 [place] [phone] Jean Guerin MD 6401 [place] [address] 12/05/2023 11:00 AM CDT Lab [facility] [address] [place] [address] 12/12/2023 11:00 AM CDT Virtual Visit [facility] 6525 [facility] 200 [place] [phone] Saroj Romeo MD 420 [place], [place] [address] documented as of this encounter Visit Diagnoses Not on filedocumented in this encounter Additional Health Concerns Assessment Noted Time PHQ-9 Depression Total Score: 2 09/21/19 20 7:02 AM CDT documented as of this encounter Care Teams Software Integration Developer Relationship Specialty Start Date End Date Mehreen Toussaint NP [address] [address] PCP - General 03/07/23 [place] [address] [place] [address] Assigned Rheumatology Provider 02/26/20 Nilton Roach PA-C [address] [address] Assigned PCP 05/30/23 documented as of this encounter
--- OUTSIDE RECORDS SUMMARY | 2023-09-18 10:28 | XMS_ITS | Encounter Summary ---
Author Name Unknown Organization [place] Address [facility] [place] [address] Care Team Providers Care Rn Clinical Documentation Name Role Phone Betty Gupta MD Unavailable Mehreen Toussaint NP Primary Care Provider Nilton Roach PA-C Unavailable [phone] Farzana Sabillon MD Unavailable [phone] Encounter Details Date Type Department Care Team (Late st Contact Info) Description 07/01/2023 [facility] Medical Advice [facility] [address] 200 [place] [address] [place] [address] [place] [address] Social History Tobacco Use Types [...] Sex Assigned at Female 04/23/2018 4:04 PM PUBLIC HEALTH POLICY ANALYST Gender Identity Female 04/23/2018 4:04 PM PUBLIC HEALTH POLICY ANALYST Sexual Orientation Straight 04/23/2018 4: 04 PM PUBLIC HEALTH POLICY ANALYST documented as of this encounter Plan of Treatment Upcoming Encounters Date Type Department Care Team (Late st Contact Info) Description 10/01/2023 2:00 PM CDT Virtual Visit [facility] [address] [place] [phone] Farzana Sabillon MD [address] [place] [address] 11/20/2023 11:00 AM CDT Office Visit [facility] and [address] [phone] Jean Guerin MD 6401 [place] [address] 12/05/2023 11:00 AM CDT Lab [facility] [address] [place] [address] 12/12/2023 11:00 AM CDT Virtual Visit [facility] [place] [address] [phone] Saroj Romeo MD 420 [place], [place] [address] documented as of this encounter Visit Diagnoses Not on filedocumented in this encounter Additional Health Concerns Assessment Noted Time PHQ-9 Depression Total Score: 2 09/21/19 20 7:02 AM CDT documented as of this encounter Care Teams Rn Clinical Documentation Relationship Specialty Start Date End Date Mehreen Toussaint NP [address] [address] PCP - General 03/07/23 [place] [address] [place], [place] [address] [address] Assigned Rheumatology Provider 02/26/20 Nilton Roach PA-C [address] [facility] 100 [place] [address] Assigned PCP 05/30/23 Farzana Sabillon MD [address] 200 [place], [place] [address] Assigned Endocrinology Provider 08/27/23 documented as of this encounter
--- OUTSIDE RECORDS SUMMARY | 2023-09-18 10:28 | XMS_ITS | Encounter Summary ---
Author Name Unknown Organization [place] Address [facility] [place] [address] Care Team Providers Care Substation Engineer Name Role Phone Betty Gupta MD Unavailable Keegan Mcdonald MD Unavailable Jean Guerin MD Unavailable [phone] Mehreen Toussaint NP Primary Care Provider Nilton Roach PA-C Unavailable [phone] Farzana Sabillon MD Unavailable Reason for Visit * Reason Onset Date Comments Prior Auth - Medication 04/16/2023 PAP Abel bryant Encounter Details Date Type Department Care Team (Late st Contact Info) Description 04/16/2023 [facility] [place] [place] Medical Advice [facility] [address] [address] [place] [address] [place] [address] Prior Auth - Medication (PAP [...] Sex Assigned at Female 04/23/2018 4:04 PM SEED SPECIALIST Gender Identity Female 04/23/2018 4:04 PM SEED SPECIALIST Sexual Orientation Straight 04/23/2018 4: 04 PM SEED SPECIALIST documented as of this encounter Miscellaneous Notes * Telephone Encounter - Sandhya Kim - 05/08/2023 1:23 PM CST Spoke to Vicki they have the application and it is under review They will have a ETA by 05/20/2023 Yoseph Hutchinson, [facility] SPECIAL[facility] * Telephone Encounter - Lars Henning - 05/01/2023 5:42 PM CST Images from the original note were not included. Date: 05/01 Comments: Spoke to PT. Pt has not filled out their portion yet but will finish it tomorrow and sendback to Sandhya SPECIALIST * Telephone Encounter - Sandhya Kim - 04/30/2023 11:16 AM CST Re faxed renewal application to clinic in [place] to complete Yoseph Hutchinson, [facility] * Telephone Encounter - Sandhya Kim - 04/22/2023 11:30 AM CST Marni Sanchez-- faxing this PAP application to you guys since Candy will be in [place] this week Certified Personal Trainer will fax pap application to FAX # [phone] ISSA Thank you please review and get signatures -- you can fax directly to vicki please FAX [phone] Yoseph Hutchinson, [facility] [email or web address] SPECIALIST * Telephone Encounter - Sandhya Kim - 04/19/2023 8:29 AM CST FREE DRUG APPLICATION INITIATED Medication: BENLYSTA Free Drug Program Name: Benlysta [place] Date Submitted: 04/19/2023 8:29 AM Phone #: [phone] Fax #: [phone] Additional Information: Certified Personal Trainer has sent application for MD to complete and fax to obdulialysta to Rns Yoseph Hutchinson, [facility] Special[facility] Pharmacy [facility] [email or web address] SPECIALIST documented in this encounter Plan of Treatment Upcoming Encounters Date Type Department Care Team (Late st Contact Info) Description 10/01/2023 2:00 PM CDT Virtual Visit [facility] [address] [place] [address] Farzana Sabillon MD [address] [place] [address] 11/20/2023 11:00 AM CDT Office Visit [facility] [address] [address] Jean Guerin MD [address] [place] [address] 12/05/2023 11:00 AM CDT Lab [facility] [address] [place] [address] 12/12/2023 11:00 AM CDT Virtual Visit [facility] 6525 [facility] [address] [place] [phone] Saroj Romeo MD 420 [place], [place] [address] documented as of this encounter Visit Diagnoses Not on filedocumented in this encounter Additional Health Concerns Assessment Noted Time PHQ-9 Depression Total Score: 2 09/21/19 20 7:02 AM CDT documented as of this encounter Care Teams Substation Engineer Relationship Specialty Start Date End Date Mehreen Toussaint NP [address] [address] PCP - General 03/07/23 [place] [address] [place] [address] Assigned Rheumatology Provider 02/26/20 [place] [address] [place] [address] Assigned Pulmonology Provider 12/30/21 05/03/23 Jean Guerin MD [address] [place] [address] Assigned PCP 12/22/22 05/29/23 Nilton Roach PA-C [address] [place] [address] Assigned PCP 05/30/23 Farzana Sabillon MD [address] [facility] [facility] 200 [place] [address] Assigned Endocrinology Provider 08/27/23 documented as of this encounter
--- OUTSIDE RECORDS SUMMARY | 2023-09-18 10:29 | XMS_ITS | Encounter Summary ---
Author Name Unknown Organization [facility] Address [address] [place] [address] Care Team Providers Care Framing Carpenter Name Role Phone Nilton Roach PA-C Primary Care Provider Nilton Roach PA-C Unavailable [phone] Nilton Roach PA-C Unavailable +[phone] Betty Gupta MD Unavailable Gray Lora MD Unavailable +[phone] Reginald Wen MD Unavailable +[phone] Nik Bryan MD Unavailable Tracie Godinez MD Unavailable + [phone] Reginald Wen MD Unavailable +[phone] Keegan Mcdonald MD Unavailable +[phone] Keegan Mcdonald MD Unavailable +[phone] Jean Guerin MD Unavailable + [phone] Mehreen Toussaint NP Primary Care Provider Nilton Roach PA-C Unavailable +[phone] Farzana Sabillon MD Unavailable +[phone] Reason for Visit * Reason Onset Date Comments Refill Request 10/13/2017 Ipratropium Encounter Details Date Type Department Care Team (Late st Contact Info) Description 10/13/2017 MyC Refill [facility] Emergency Dept [address] [facility] [place] [address] Robin Espinal MD Refill Request (Ipratropium) Social History Tobacco Use Types Packs/Day Years Used Date Smoking Tobacco: Some Days Cigarettes Smokeless Tobacco: Never Comments:Occasional Alcohol Use Standard Drinks/Week Comments No 0 (1 standard drink = 0.6 oz pur e alcohol) Sex and Gender Information Value Date Recorded Sex Assigned at Female 04/23/2018 4:04 PM DENTAL HYGIENE TEACHER Gender Identity Female 04/23/2018 4:04 PM DENTAL HYGIENE TEACHER Sexual Orientation Straight 04/23/2018 4: 04 PM DENTAL HYGIENE TEACHER documented as of this encounter Miscellaneous Notes * Telephone Encounter - Sandi Garcia RN - 10/14/2017 2:20 PM CDT Ipratropium Prescription approved per [facility] Refill Protocol. Sandi Garcia RN, BSN * Telephone Encounter - Hortensia Hardy MA - 10/14/2017 8:03 AM CDTMessage from MyChart: Original authorizing provider: MD Keila Prater would like a refill of the following medications: ipratropium - albuterol 0.5 mg/2.5 mg/3 mL (DUONEB) 0.5-2.5 (3) MG/3ML neb solution [Robin Espinal MD] Preferred pharmacy: [facility] [id number] [facility] [address] [place] Comment: Medication renewals requested in this message routed to other providers: albuterol (PROAIR HFA/PROVENTIL HFA/VENTOLIN HFA) 108 (90 BASE) MCG/ACT Inhaler [Nilton Roach PA-C] documented in this encounter Plan of Treatment Upcoming Encounters Date Type Department Care Team (Late Contact Info) Description 10/01/2023 2:00 PM CDT Virtual Visit [facility] [address] [place] [phone] Farzana Sabillon MD [address] 200 [place] [address] 11/20/2023 11:00 AM CDT Office Visit [facility] [address] [phone] Jean Guerin MD 6401 [place] [address] 12/05/2023 11:00 AM CDT Lab [facility] [address] [place] [phone] 12/12/2023 11:00 AM CDT Virtual Visit [facility] [address] [place] [phone] Saroj Romeo MD 420 [place], [place] [address] documented as of this encounter Visit Diagnoses Diagnosis COPD exacerbation (H) Obstructive chronic bronchitis with exacerbation documented in this encounter Additional Health Concerns Infection Onset Date Last Indicated Resolved Time Rule Out COVID-19 09/12/2020 09/12/2020 09/13/2020 5:31 PM CDT documented as of this encounter Care Teams Framing Carpenter Relationship Specialty Start Date End Date Nilton Roach PA-C [address] [address] PCP - General Physician Jailer Chief 01/02/17 03/06/23 Nilton Roach PA-C 290 [facility] 100 [place] [address] PCP - Assigned PCP 12/13/16 07/08/18 Mehreen Toussaint NP [address] [address] PCP - General 03/07/23 Nilton Roach PA-C [address] [address] Assigned PCP 12/13/16 12/21/22 [place] [address] [place], [place] [address] Assigned Rheumatology Provider 02/26/20 Gray Lora MD [address] [place] [address] Assigned Pulmonology Provider 02/26/20 05/27/21 Reginald Wen MD [address] [place] [address] Assigned Musculoskeletal Provider 05/29/20 07/19/20 Nik Bryan MD [address] [place] [address] Assigned Cancer Care Provider 02/26/20 11/17/21 Tracie Godinez MD [address] [place] [address] Assigned Musculoskeletal Provider 05/22/20 05/28/20 Reginald Wen MD [address] [place] [address] Assigned Musculoskeletal Provider 02/26/20 05/21/20 Keegan Mcdonald MD [address] [place] [address] Assigned Pulmonology Provider 07/09/21 09/02/21 Keegan Mcdonald MD [address] [place] [address] Assigned Pulmonology Provider 12/30/21 05/03/23 Jean Guerin MD [address] [place] [address] Assigned PCP 12/22/22 05/29/23 Nilton Roach PA-C [address] [place] [address] 100 [place] [address] Assigned PCP 05/30/23 Farzana Sabillon MD [address] 200 [place], [place] [address] Assigned Endocrinology Provider 08/27/23 documented as of this encounter
--- OUTSIDE RECORDS SUMMARY | 2023-09-18 10:29 | XMS_ITS | Encounter Summary ---
Author Name Unknown Organization [facility] Address [address] [place] [address] Care Team Providers Care Windows Systems Engineer Name Role Phone Nilton Roach PA-C Primary Care Provider Nilton Roach PA-C Unavailable [phone] Betty Gupta MD Unavailable +[phone] Gray Lora MD Unavailable +[phone] Reginald Wen MD Unavailable +[phone] Nik Bryan MD Unavailable Tracie Godinez MD Unavailable + [phone] Reginald Wen MD Unavailable +[phone] Keegan Mcdonald MD Unavailable +[phone] Keegan Mcdonald MD Unavailable +[phone] Jean Guerin MD Unavailable + [phone] Mehreen Toussaint NP Primary Care Provider [phone] Nilton Roach PA-C Unavailable +[phone] Farzana Sabillon MD Unavailable +[phone] Encounter Details Date Type Department Care Team (Late st Contact Info) Description 05/03/[address] [address] Chana Gillette CMA Social History [...] Sex Assigned at Female 04/23/2018 4:04 PM PRODUCTION LEADER Gender Identity Female 04/23/2018 4:04 PM PRODUCTION LEADER Sexual Orientation Straight 04/23/2018 4: 04 PM PRODUCTION LEADER documented as of this encounter Plan of Treatment Upcoming Encounters Date Type Department Care Team (Late st Contact Info) Description 10/01/2023 2:00 PM CDT Virtual Visit [facility] [address] [facility] [address] [place] [phone] Farzana Sabillon MD [address] 200 [place], [place] [address] 11/20/2023 11:00 AM CDT Office [facility] [address] [phone] Jean Guerin MD 6401 [place] [address] 12/05/2023 11:00 AM CDT Lab [facility] Laboratory [address] [place] [address] 12/12/2023 11:00 AM CDT Virtual Visit [facility] [place] [address] [phone] Saroj Romeo MD 420 [place], [place] [address] documented as of this encounter Visit Diagnoses Not on filedocumented in this encounter Additional Health Concerns Infection Onset Date Last Indicated Resolved Time Rule Out COVID-19 09/12/2020 09/12/2020 09/13/2020 5:31 PM CDT Assessment Noted Time PHQ-9 Depression Total Score: 2 09/21/19 20 7:02 AM CDT documented as of this encounter Care Teams Windows Systems Engineer Relationship Specialty Start Date End Date Nilton Roach PA-C [address] [address] PCP - General Physician Corporate Safety Manager 01/02/17 03/06/23 Mehreen Toussaint NP [address] [address] PCP - General 03/07/23 Nilton Roach PA-C [address] [place] [address] Assigned PCP 12/13/16 12/21/22 [place] [address] [facility] [place] [address] Assigned Rheumatology Provider 02/26/20 Gray Lora MD [address] [place] [address]17135 Assigned Pulmonology Provider 02/26/20 05/27/21 Reginald Wen MD [address] [place], [place] [address] Assigned Musculoskeletal Provider 05/29/20 07/19/20 Nik Bryan MD [address] [place] [address] 532975 Assigned Cancer Care Provider 02/26/20 11/17/21 Tracie Godinez MD 290 [facility] 100 [place] [address] Assigned Musculoskeletal Provider 05/22/20 05/28/20 Reginald Wen MD 4000 [place] [address] Assigned Musculoskeletal Provider 02/26/20 05/21/20 Keegan Mcdonald MD 6401 [place] [address] Assigned Pulmonology Provider 07/09/21 09/02/21 Keegan Mcdonald MD [address]01 [place] [address] Assigned Pulmonology Provider 12/30/21 05/03/23 Jean Guerin MD [address]01 [place] [address] Assigned PCP 12/22/22 05/29/23 Nilton Roach PA-C [address] [place] [address] Assigned PCP 05/30/23 Farzana Sabillon MD [address] [facility] 200 [place], [place] 2338[address] Assigned Endocrinology Provider 08/27/23 documented as of this encounter
--- OUTSIDE RECORDS SUMMARY | 2023-09-18 10:29 | XMS_ITS | Encounter Summary ---
Author Name Unknown Organization [place] Address [address] [place] [address] Care Team Providers Care Fisher Weir Name Role Phone Nilton Roach PA-C Primary Care Provider Nilton Roach PA-C Unavailable [phone] Nilton Roach PA-C Unavailable +[phone] Betty Gupta MD Unavailable Gray Lora MD Unavailable +[phone] Reginald Wen MD Unavailable +[phone] Nik Bryan MD Unavailable Tracie Godinez MD Unavailable + [phone] Reginald Wen MD Unavailable +[phone] Keegan Mcdonald MD Unavailable +[phone] Keegan Mcdonald MD Unavailable +[phone] Jean Guerin MD Unavailable + [phone] Mehreen Toussaint NP Primary Care Provider Nilton Roach PA-C Unavailable +[phone] Farzana Sabillon MD Unavailable +[phone] Encounter Details Date Type Department Care Team (Late st Contact Info) Description 09/23/2017 [facility] [address] [place] [phone] Crispin [place] Social History Tobacco Use Types Packs/Day Years Used Date Smoking Tobacco: Some Days Cigarettes Smokeless Tobacco: Never Comments:Occasional Alcohol Use Standard Drinks/Week Comments No 0 (1 standard drink = 0.6 oz pur e alcohol) Sex and Gender Information Value Date Recorded Sex Assigned at Female 04/23/2018 4:04 PM FACILITY OPERATIONS MANAGER Gender Identity Female 04/23/2018 4:04 PM FACILITY OPERATIONS MANAGER Sexual Orientation Straight 04/23/2018 4: 04 PM FACILITY OPERATIONS MANAGER documented as of this encounter Plan of Treatment Upcoming Encounters Date Type Department Care Team (Late st Contact Info) Description 10/01/2023 2:00 PM CDT Virtual Visit [facility] [address] [place] [address] [place] [phone] Farzana Sabillon MD [address] [place] [address] 200 [place], [place] [address] 11/20/2023 11:00 AM CDT Office Visit [facility] [address] [phone] Jean Guerin MD 6401 [place] [address] 12/05/2023 11:00 AM CDT Lab [facility] [address] [place] [address] 12/12/2023 11:00 AM CDT Virtual Visit [facility] [place] [address] [phone] Saroj Romeo MD 420 [place], [place] 80[address] documented as of this encounter Visit Diagnoses Not on filedocumented in this encounter Additional Health Concerns Infection Onset Date Last Indicated Resolved Time Rule Out COVID-19 09/12/2020 09/12/2020 09/13/2020 5:31 PM CDT documented as of this encounter Care Teams Fisher Weir Relationship Specialty Start Date End Date Nilton Roach PA-C [address] [address] PCP - General Physician Hand Frame Surgical Elastic Knitter 01/02/17 03/06/23 Nilton Roach PA-C [address] [address] PCP - Assigned PCP 12/13/16 07/08/18 Mehreen Toussaint NP [address] [address] PCP - General 03/07/23 Nilton Roach PA-C [address] [address] Assigned PCP 12/13/16 12/21/22 [place] [address] [place] [address] Assigned Rheumatology Provider 02/26/20 Gray Lora MD 909 [place] [address] Assigned Pulmonology Provider 02/26/20 05/27/21 Reginald Wen MD [address] [place] [address] Assigned Musculoskeletal Provider 05/29/20 07/19/20 Nik Bryan MD 909 [place] [address] Assigned Cancer Care Provider 02/26/20 11/17/21 Tracie Godinez MD [address] [place] [place] [address] Assigned Musculoskeletal Provider 05/22/20 05/28/20 Reginald Wen MD [address] [facility], [place] [address] Assigned Musculoskeletal Provider 02/26/20 05/21/20 Keegan Mcdonald MD [address] [place] [address] Assigned Pulmonology Provider 07/09/21 09/02/21 Keegan Mcdonald MD [address] [place] [address] Assigned Pulmonology Provider 12/30/21 05/03/23 Jean Guerin MD [address] [place] [address] Assigned PCP 12/22/22 05/29/23 Nilton Roach PA-C [address] [facility] [place] 100 [place] [address] Assigned PCP 05/30/23 Farzana Sabillon MD [address] [place] 200 [place] [address] Assigned Endocrinology Provider 08/27/23 documented as of this encounter
--- OUTSIDE RECORDS SUMMARY | 2023-09-18 10:29 | XMS_ITS | Encounter Summary ---
Author Name Unknown Organization [place] Address [address] [place] [address] Care Team Providers Care Transition Mgr Name Role Phone Nilton Roach PA-C Primary Care Provider Nilton Roach PA-C Unavailable [phone] Nilton Roach PA-C Unavailable +[phone] Betty Gupta MD Unavailable [phone] Gray Lora MD Unavailable +[phone] Reginald Wen MD Unavailable +[phone] Nik Bryan MD Unavailable Tracie Godinez MD Unavailable + [phone] Reginald Wen MD Unavailable +[phone] eKegan Mcdonald MD Unavailable +[phone] Keegan Mcdonald MD Unavailable +[phone] Jean Guerin MD Unavailable + [phone] Mehreen Toussaint NP Primary Care Provider Nilton Roach PA-C Unavailable +[phone] Farzana Sabillon MD Unavailable +[phone] Encounter Details Date Type Department Care Team (Late st Contact Info) Description 01/13/2018 MyC Medical Advice [facility] Scheduling [address] [place], [place] [phone] Milagro Tanner Social History Tobacco Use Types Packs/Day Years Used Date Smoking Tobacco: Some Days Cigarettes Smokeless Tobacco: Never Comments:Occasional Alcohol Use Standard Drinks/Week Comments No 0 (1 standard drink = 0.6 oz pur e alcohol) Sex and Gender Information Value Date Recorded Sex Assigned at Female 04/23/2018 4:04 PM RESIDENT CARE SUPERVISOR Gender Identity Female 04/23/2018 4:04 PM RESIDENT CARE SUPERVISOR Sexual Orientation Straight 04/23/2018 4: 04 PM RESIDENT CARE SUPERVISOR documented as of this encounter Plan of Treatment Upcoming Encounters Date Type Department Care Team (Late st Contact Info) Description 10/01/2023 2:00 PM CDT Virtual Visit [facility] [address] [place] [phone] Farzana Sabillon MD [address] [place] [address] 200 [place], [place] [address] 11/20/2023 11:00 AM CDT Office Visit [facility] [place] 909 [place] [phone] Jean Guerin MD 6401 [place] [address] 12/05/2023 11:[address] [facility] [address] [place] [phone] 12/12/2023 11:00 AM CDT Virtual Visit [facility] [place] [address] [phone] Saroj Romeo MD 420 [place], [place] 2085[address] documented as of this encounter Visit Diagnoses Not on filedocumented in this encounter Additional Health Concerns Infection Onset Date Last Indicated Resolved Time Rule Out COVID-19 09/12/2020 09/12/2020 09/13/2020 5:31 PM CDT Assessment Noted Time PHQ-9 Depression Total Score: 3 12/14/19 18 2:01 PM CDT documented as of this encounter Care Teams Transition Mgr Relationship Specialty Start Date End Date Nilton Roach PA-C [address] [address] PCP - General Physician Billboard Erector 01/02/17 03/06/23 Nilton Roach PA-C [address] [address] PCP - Assigned PCP 12/13/16 07/08/18 Mehreen Toussaint NP [address] [address] PCP - General 03/07/23 Nilton Roach PA-C [address] [address] Assigned PCP 12/13/16 12/21/22 [place] [address] [place] [address] Assigned Rheumatology Provider 02/26/20 Gray Lora MD 909 [place], [place] 995515 Assigned Pulmonology Provider 02/26/20 05/27/21 Reginald Wen MD [address] [place] [address] Assigned Musculoskeletal Provider 05/29/20 07/19/20 Nik Bryan MD 909 [place], [place] 289915 Assigned Cancer Care Provider 02/26/20 11/17/21 Tracie Godinez MD [address] [facility] 100 [place], [place] 44[address] Assigned Musculoskeletal Provider 05/22/20 05/28/20 Reginald Wen MD [address] [place] [address] 985421 Assigned Musculoskeletal Provider 02/26/20 05/21/20 Keegan Mcdonald MD [address] [facility] [place] [address] Assigned Pulmonology Provider 07/09/21 09/02/21 Keegan Mcdonald MD 6401 [facility] [place] [address] Assigned Pulmonology Provider 12/30/21 05/03/23 Jean Guerin MD [address] [facility] [place] [address] Assigned PCP 12/22/22 05/29/23 Nilton Roach PA-C [address] [facility] 100 [place], [place] [address]31[address] Assigned PCP 05/30/23 Farzana Sabillon MD [address] [place], [place] [address] Assigned Endocrinology Provider 08/27/23 documented as of this encounter
--- OUTSIDE RECORDS SUMMARY | 2023-09-18 10:29 | XMS_ITS | Encounter Summary ---
Author Name Unknown Organization [place] Address [address] [place] [address] Care Team Providers Care Agriculture Laborer Name Role Phone Nilton Roach PA-C Primary Care Provider Nilton Roach PA-C Unavailable [phone] Betty Gupta MD Unavailable +[phone] Gray Lora MD Unavailable +[phone] Reginald Wen MD Unavailable +[phone] Nik Bryan MD Unavailable Tracie Godinez MD Unavailable + [phone] Reginald Wen MD Unavailable +[phone] Keegan Mcdonald MD Unavailable +[phone] Keegan Mcdonald MD Unavailable +[phone] Jean Guerin MD Unavailable + [phone] Mehreen Toussaint NP Primary Care Provider Nilton Roach PA-C Unavailable +[phone] Farzana Sabillon MD Unavailable +[phone] Reason for Visit * Reason Comments Medication Refill Encounter Details Date Type Department Care Team (Late st Contact Info) Description 01/12/[address] [place] [phone] Nilton Roach PA-C [address] [place] [address] Medication Refill Social History Tobacco Use Types Packs/Day Years Used Date Smoking Tobacco: Former Cigarettes 1 40 0 06/06/1979 - 06/06/2019 Smokeless Tobacco: Never Comments:Occasional Alcohol Use Standard Drinks/Week Comments No 0 (1 standard drink = 0.6 oz pur e alcohol) PHQ-2 Answer Date Recorded PHQ-2 Score 0 05/14/2018 Sex and Gender Information Value Date Recorded Sex Assigned at Female 04/23/2018 4:04 PM MEDICAL DELIVERY DRIVER Gender Identity Female 04/23/2018 4:04 PM MEDICAL DELIVERY DRIVER Sexual Orientation Straight 04/23/2018 4: 04 PM MEDICAL DELIVERY DRIVER COVID-19 Exposure Response Date Recorded In the [...] Description 10/01/2023 2:00 PM CDT Virtual Visit [facility] [address] [place] [address] Farzana Sabillon MD [address] [place] [address] 11/20/2023 11:00 AM CDT Office Visit [facility] [place] 909 [place] [phone] Jean Guerin MD 6401 [facility] [place] [address] 12/05/2023 11:00 AM CDT Lab [facility] Laboratory [address] [place] [phone] 12/12/2023 11:00 AM CDT Virtual Visit [facility] [place] 6525 [facility] 200 [place] [phone] Saroj Romeo MD 420 [place] [address] documented as of this encounter Visit Diagnoses Diagnosis Chronic bilateral low back pain with bilateral sciatica documented in this encounter Additional Health Concerns Infection Onset Date Last Indicated Resolved Time Rule Out COVID-19 09/12/2020 09/12/2020 09/13/2020 5:31 PM CDT Assessment Noted Time PHQ-9 Depression Total Score: 2 09/21/19 20 7:02 AM CDT documented as of this encounter Care Teams Agriculture Laborer Relationship Specialty Start Date End Date Nilton Roach PA-C [address] [place] [address] PCP - General Physician Metal Flow Coordinator 01/02/17 03/06/23 Mehreen Toussaint NP [address] [address] PCP - General 03/07/23 Nilton Roach PA-C [address] [place] [address] Assigned PCP 12/13/16 12/21/22 [place] [address] [place] [address] Assigned Rheumatology Provider 02/26/20 Gray Lora MD [address] [place] [address] Assigned Pulmonology Provider 02/26/20 05/27/21 Reginald Wen MD 4000 [place], [place] 366441 Assigned Musculoskeletal Provider 05/29/20 07/19/20 Nik Bryan MD [address] [place] [address] 272225 Assigned Cancer Care Provider 02/26/20 11/17/21 Tracie Godinez MD [address] [place] [address] 825480 Assigned Musculoskeletal Provider 05/22/20 05/28/20 Reginald Wen MD 4000 [place], [place] [address]221 Assigned Musculoskeletal Provider 02/26/20 05/21/20 Keegan Mcdonald MD [address] [place] [address] Assigned Pulmonology Provider 07/09/21 09/02/21 Keeagn Mcdonald MD [address] [place] [address]54275 Assigned Pulmonology Provider 12/30/21 05/03/23 Jean Guerin MD 6401 [place] [address] Assigned PCP 12/22/22 05/29/23 Nilton Roach PA-C [address] [place] [address] Assigned PCP 05/30/23 Farzana Sabillon MD [address] [place] 200 [place], [place] [address] Assigned Endocrinology Provider 08/27/23 documented as of this encounter
--- OUTSIDE RECORDS SUMMARY | 2023-09-18 10:29 | XMS_ITS | Encounter Summary ---
Author Name Unknown Organization [facility] Address [address] [place] [address] Care Team Providers Care Sciences Dean Name Role Phone Nilton Roach PA-C Primary Care Provider Nilton Roach PA-C Unavailable +[phone] Betty Gupta MD Unavailable +[phone] Gray Lora MD Unavailable +[phone] Reginald Wen MD Unavailable +[phone] Nik Bryan MD Unavailable Tracie Godinez MD Unavailable + [phone] Reginald Wen MD Unavailable +[phone] Keegan Mcdonald MD Unavailable +[phone] Keegan Mcdonald MD Unavailable +[phone] Jean Guerin MD Unavailable + [phone] Mehreen Toussaint NP Primary Care Provider Nilton Roach PA-C Unavailable +[phone] Farzana Sabillon MD Unavailable +[phone] Encounter Details Date Type Department Care Team (Late st Contact Info) Description 05/17/[address] [address] Nelida Aragon, JEAN-CLAUDE Social History Tobacco Use Types Packs/Day Years Used Date Smoking Tobacco: Former Cigarettes 1 40 0 06/06/1979 - 06/06/2019 Smokeless Tobacco: Never Comments:Occasional Alcohol Use Standard Drinks/Week Comments No 0 (1 standard drink = 0.6 oz pur e alcohol) PHQ-2 Answer Date Recorded PHQ-2 Score 0 05/14/2018 Sex and Gender Information Value Date Recorded Sex Assigned at Female 04/23/2018 4:04 PM PIGEON FANCIER Gender Identity Female 04/23/2018 4:04 PM PIGEON FANCIER Sexual Orientation Straight 04/23/2018 4: 04 PM PIGEON FANCIER documented as of this encounter Plan of Treatment Upcoming Encounters Date Type Department Care Team (Late st Contact Info) Description 10/01/2023 2:00 PM CDT Virtual Visit [facility] [address] [facility] [address] [place] [phone] Farzana Sabillon MD [address] 200 [place], [place] [address] 11/20/2023 11:00 AM CDT Office Visit [facility] [address] [address] Jean Guerin MD 6401 [place] [address] 12/05/2023 11:00 AM CDT Lab [facility] [address] [place] [address] 12/12/2023 11:00 AM CDT Virtual Visit [facility] [place] [address] [phone] Saroj Romeo MD 420 [place], [place] [address] documented as of this encounter Visit Diagnoses Not on filedocumented in this encounter Additional Health Concerns Infection Onset Date Last Indicated Resolved Time Rule Out COVID-19 09/12/2020 09/12/2020 09/13/2020 5:31 PM CDT Assessment Noted Time PHQ-9 Depression Total Score: 2 09/21/19 20 7:02 AM CDT documented as of this encounter Care Teams Sciences Dean Relationship Specialty Start Date End Date Nilton Roach PA-C [address] [place] [address] PCP - General Physician Concrete Rod Buster 01/02/17 03/06/23 Mehreen Toussaint NP [address] [address] PCP - General 03/07/23 Nilton Roach PA-C [address] [place] [address] Assigned PCP 12/13/16 12/21/22 [place] [address] [facility] [place] [address] Assigned Rheumatology Provider 02/26/20 Gray Lora MD [address] [place] [address] Assigned Pulmonology Provider 02/26/20 05/27/21 Reginald Wen MD 4000 [place], [place] 742041 Assigned Musculoskeletal Provider 05/29/20 07/19/20 Nik Bryan MD [address] [place] [address] 430865 Assigned Cancer Care Provider 02/26/20 11/17/21 Tracie Godinez MD [address] [facility] 100 [place] [address] Assigned Musculoskeletal Provider 05/22/20 05/28/20 Reginald Wen MD 4000 [place] [address] Assigned Musculoskeletal Provider 02/26/20 05/21/20 Keegan Mcdonald MD [address] [place] [address] Assigned Pulmonology Provider 07/09/21 09/02/21 Keegan Mcdonald MD [address] [place] [address] Assigned Pulmonology Provider 12/30/21 05/03/23 Jean Guerin MD [address]01 [place] [address] Assigned PCP 12/22/22 05/29/23 Nilton Roach PA-C 290 [facility] 100 [place] [address] Assigned PCP 05/30/23 Farzana Sabillon MD [address] [facility] 200 [place], [place] [address] Assigned Endocrinology Provider 08/27/23 documented as of this encounter
--- OUTSIDE RECORDS SUMMARY | 2023-09-18 10:29 | XMS_ITS | Encounter Summary ---
Author Name Unknown Organization [facility] Address [address] [place] [address] Care Team Providers Care Director Treasurer Name Role Phone Nilton Roach PA-C Primary Care Provider Nilton Roach PA-C Unavailable [phone] Betty Gupta MD Unavailable +[phone] Gray Lora MD Unavailable +[phone] Reginald Wen MD Unavailable +[phone] Nik Bryan MD Unavailable Tracie Godinez MD Unavailable + [phone] Reginald Wen MD Unavailable +[phone] Keegan Mcdonald MD Unavailable +[phone] Keegan Mcdonald MD Unavailable +[phone] Jean Guerin MD Unavailable + [phone] Mehreen Toussaint NP Primary Care Provider [phone] Nilton Roach PA-C Unavailable +[phone] Farzana Sabillon MD Unavailable +[phone] Encounter Details Date Type Department Care Team (Late st Contact Info) Description 08/17/2019 [facility] [address] [place] [address] Nilton Roach PA-C [address] [facility] 100 [place] [address] Social History Tobacco Use Types Packs/Day Years Used Date Smoking Tobacco: Some Days Cigarettes 1 40 Smokeless Tobacco: Never Comments:Occasional Alcohol Use Standard Drinks/Week Comments No 0 (1 standard drink = 0.6 oz pur e alcohol) PHQ-2 Answer Date Recorded PHQ-2 Score 0 05/14/2018 Sex and Gender Information Value Date Recorded Sex Assigned at Female 04/23/2018 4:04 PM MANUFACTURING ENGINEER PAINT Gender Identity Female 04/23/2018 4:04 PM MANUFACTURING ENGINEER PAINT Sexual Orientation Straight 04/23/2018 4: 04 PM MANUFACTURING ENGINEER PAINT COVID-19 Exposure Response Date Recorded In the last month, have you been in contact with someone who was confirmed or suspected to have Coronavirus / COVID-19? No / Unsure 08/07/2019 11:10 AM CDT documented as of this encounter Plan of Treatment Upcoming Encounters Date Type Department Care Team (Late st Contact Info) Description 10/01/2023 2:00 PM CDT Virtual Visit [facility] [address] [facility] [address] [place] [address] Farzana Sabillon MD [address] [facility] [facility] 200 [place] [address] 11/20/2023 11:00 AM CDT Office Visit [facility] [address] [address] Jean Guerin MD 6401 [facility] [place] [address] 12/05/2023 11:[address] [facility] [address] [place] [phone] 12/12/2023 11:00 AM CDT Virtual Visit [address] 200 [place] [phone] Saroj Romeo MD 420 [place], [place] 488015 documented as of this encounter Visit Diagnoses Not on filedocumented in this encounter Additional Health Concerns Infection Onset Date Last Indicated Resolved Time Rule Out COVID-19 09/12/2020 09/12/2020 09/13/2020 5:31 PM CDT Assessment Noted Time PHQ-9 Depression Total Score: 1 05/30/19 7:03 AM MANUFACTURING ENGINEER PAINT documented as of this encounter Care Teams Director Treasurer Relationship Specialty Start Date End Date Nilton Roach PA-C [address] [place] [address] PCP - General Physician Chief Legal Officer 01/02/17 03/06/23 Mehreen Toussaint NP [address] [address] PCP - General 03/07/23 Nilton Roach PA-C [address] [place] [address] Assigned PCP 12/13/16 12/21/22 [place] [address] [place] [address] Assigned Rheumatology Provider 02/26/20 Gray Lora MD [address] [place] [address] Assigned Pulmonology Provider 02/26/20 05/27/21 Reginald Wen MD 4000 [place] [address] Assigned Musculoskeletal Provider 05/29/20 07/19/20 Nik Bryan MD 909 [place] [address] Assigned Cancer Care Provider 02/26/20 11/17/21 Tracie Godinez MD [address] [address] Assigned Musculoskeletal Provider 05/22/20 05/28/20 Reginald Wen MD [address] [place] [address] Assigned Musculoskeletal Provider 02/26/20 05/21/20 Keegan Mcdonald MD [address] [place] [address] Assigned Pulmonology Provider 07/09/21 09/02/21 Keegan Mcdonald MD [address] [place] [address] Assigned Pulmonology Provider 12/30/21 05/03/23 Jean Gurein MD 6401 [facility] [place] [address] Assigned PCP 12/22/22 05/29/23 Nilton Roach PA-C 290 [facility] 100 [place], [place] [address] Assigned PCP 05/30/23 Farzana Sabillon MD [address] [facility] 200 [place], [place] [address] Assigned Endocrinology Provider 08/27/23 documented as of this encounter
--- OUTSIDE RECORDS SUMMARY | 2023-09-18 10:29 | XMS_ITS | Encounter Summary ---
Author Name Unknown Organization [facility] Address [address] [place] [address] Care Team Providers Care Coal Chemist Name Role Phone Nilton Roach PA-C Primary Care Provider Nilton Roach PA-C Unavailable [phone] Nilton Roach PA-C Unavailable +[phone] Betty Gupta MD Unavailable Gray Lora MD Unavailable +[phone] Reginald Wen MD Unavailable +[phone] Nik Bryan MD Unavailable Tracie Godinez MD Unavailable + [phone] Reginald Wen MD Unavailable +[phone] Keegan Mcdonald MD Unavailable +[phone] Keegan Mcdonald MD Unavailable [phone] Jean Guerin MD Unavailable + [phone] Mehreen Toussaint NP Primary Care Provider Nilton Roach PA-C Unavailable +[phone] Farzana Sabillon MD Unavailable +[phone] Reason for Visit * Reason Comments Medication Refill Duoneb Encounter Details Date Type Department Care Team (Late st Contact Info) Description 04/24/2018 Refill [facility] [address] [facility] [address] [place] [address] Nilton Roach PA-C 290 [facility] 100 [place] [address] Medication Refill (Duoneb) Social History Tobacco Use Types Packs/Day Years Used Date Smoking Tobacco: Former Cigarettes Smokeless Tobacco: Never Comments:Occasional Alcohol Use Standard Drinks/Week Comments No 0 (1 standard drink = 0.6 oz pur e alcohol) Sex and Gender Information Value Date Recorded Sex Assigned at Female 04/23/2018 4:04 PM BAGGAGE PORTER Gender Identity Female 04/23/2018 4:04 PM BAGGAGE PORTER Sexual Orientation Straight 04/23/2018 4: 04 PM BAGGAGE PORTER documented as of this encounter Miscellaneous Notes * Telephone Encounter - Nilton Roach PA-C - 04/24/2018 5:21 PM BAGGAGE PORTER Refills sent. Nilton Roach PA-C AGE PORTER * Telephone Encounter - Sandi Garcia RN - 04/24/2018 1:54 PM CST Duoneb Routing refill request to provider for review/approval because: Prescribed for Acute bronchitis and COPD exacerbation Sandi Garcia RN, BSN AGE PORTER documented in this encounter Plan of Treatment Upcoming Encounters Date Type Department Care Team (Late st Contact Info) Description 10/01/2023 2:00 PM CDT Virtual Visit [facility] [address] [facility] 200 [place] [phone] Farzana Sabillon MD [address] [facility] 200 [place] [address] 11/20/2023 11:00 AM CDT Office Visit [facility] [address] [place] [address] Jean Guerin MD 6401 [facility] [place] [address] 12/05/2023 11:00 AM CDT Lab [facility] [address] [place] [phone] 12/12/2023 11:00 AM CDT Virtual Visit [facility] [address] [facility] [address] [place] [phone] Saroj Romeo MD 420 [place], [place] [address] documented as of this encounter Visit Diagnoses Diagnosis Simple chronic bronchitis (H)- Primary Simple chronic bronchitis documented in this encounter Additional Health Concerns Infection Onset Date Last Indicated Resolved Time Rule Out COVID-19 09/12/2020 09/12/2020 09/13/2020 5:31 PM CDT Assessment Noted Time PHQ-9 Depression Total Score: 3 12/14/19 18 2:01 PM CDT documented as of this encounter Care Teams Coal Chemist Relationship Specialty Start Date End Date Nilton Roach PA-C [address] [address] PCP - General Physician Biodiesel Production Associate 01/02/17 03/06/23 Nilton Roach PA-C [address] [address] PCP - Assigned PCP 12/13/16 07/08/18 Mehreen Toussaint NP [address] [address] PCP - General 03/07/23 Nilton Roach PA-C [address] [address] Assigned PCP 12/13/16 12/21/22 [place] [address] [place] [address] Assigned Rheumatology Provider 02/26/20 Gray Lora MD [address] [place] [address] 852425 Assigned Pulmonology Provider 02/26/20 05/27/21 Reginald Wen MD 4000 [place], [place] [address] Assigned Musculoskeletal Provider 05/29/20 07/19/20 Nik Bryan MD [address] [place] [address] Assigned Cancer Care Provider 02/26/20 11/17/21 Tracie Godinez MD [address] [address] Assigned Musculoskeletal Provider 05/22/20 05/28/20 Reginald Wen MD 4000 [place], [place] [address] Assigned Musculoskeletal Provider 02/26/20 05/21/20 Keegan Mcdonald MD 6401 [facility] [place] [address] Assigned Pulmonology Provider 07/09/21 09/02/21 Keegan Mcdonald MD [address] [place] [address] Assigned Pulmonology Provider 12/30/21 05/03/23 Jean Guerin MD [address] [place] [address] Assigned PCP 12/22/22 05/29/23 Nilton Roach PA-C [address] [facility] 100 [place], [place] [address] Assigned PCP 05/30/23 Farzana Sabillon MD [address] [facility] 200 [place] [address] Assigned Endocrinology Provider 08/27/23 documented as of this encounter
--- OUTSIDE RECORDS SUMMARY | 2023-09-18 10:29 | XMS_ITS | Encounter Summary ---
Author Name Unknown Organization [facility] Address [address] [place] [address] Care Team Providers Care Fisher Seal Name Role Phone Nilton Roach PA-C Primary Care Provider Nilton Roach PA-C Unavailable [phone] Betty Gupta MD Unavailable Gray Lora MD Unavailable +[phone] Nik Bryan MD Unavailable Keegan Mcdonald MD Unavailable [phone] Keegan Mcdonald MD Unavailable Jean Guerin MD Unavailable [phone] Mehreen Toussaint NP Primary Care Provider Nilton Roach PA-C Unavailable [phone] Farzana Sabillon MD Unavailable +[phone] Encounter Details Date Type Department Care Team (Late st Contact Info) Description 11/11/2020 [facility] Medical Advice [address] [address] Liliane Toro, [facility] Social History Tobacco Use Types Packs/Day Years Used Date Smoking Tobacco: Former Cigarettes 1 40 0 06/06/1979 - 06/06/2019 Smokeless Tobacco: Never Comments:Occasional Alcohol Use Standard Drinks/Week Comments No 0 (1 standard drink = 0.6 oz pur e alcohol) PHQ-2 Answer Date Recorded PHQ-2 Score 0 08/05/2020 Sex and Gender Information Value Date Recorded Sex Assigned at Female 04/23/2018 4:04 PM SHELL PRESS OPERATOR Gender Identity Female 04/23/2018 4:04 PM SHELL PRESS OPERATOR Sexual Orientation Straight 04/23/2018 4: 04 PM SHELL PRESS OPERATOR documented as of this encounter Plan of Treatment Upcoming Encounters Date Type Department Care Team (Late st Contact Info) Description 10/01/2023 2:00 PM CDT Virtual Visit [facility] [address] [place] [phone] Farzana Sabillon MD [address] [facility] 200 [place], [place] [address] 11/20/2023 11:00 AM CDT Office Visit [facility] [address] [phone] Jean Guerin MD 6401 [place] [address] 12/05/2023 11:00 AM CDT Lab [facility] [address] [place] [phone] 12/12/2023 11:00 AM CDT Virtual Visit [facility] [address] [phone] Saroj Romeo MD 420 [place], [place] [address] documented as of this encounter Visit Diagnoses Not on filedocumented in this encounter Additional Health Concerns Assessment Noted Time PHQ-9 Depression Total Score: 2 09/21/19 20 7:02 AM CDT documented as of this encounter Care Teams Fisher Seal Relationship Specialty Start Date End Date Nilton Roach PA-C [address] [place] [address] PCP - General Physician Full Stack Software Engineer 01/02/17 03/06/23 Mehreen Toussaint NP [address] [address] PCP - General 03/07/23 Nilton Roach PA-C [address] [place] [address] Assigned PCP 12/13/16 12/21/22 [place] [address] [place] [address] Assigned Rheumatology Provider 02/26/20 Gray Lora MD [address] [place] [address] 6[address]95 Assigned Pulmonology Provider 02/26/20 05/27/21 Nik Bryan MD [address] [place] [address] 764945 Assigned Cancer Care Provider 02/26/20 11/17/21 Keegan Mcdonald MD [address] [place] 1469[address] Assigned Pulmonology Provider 07/09/21 09/02/21 Keegan Mcdonald MD [address] [place] 820535 Assigned Pulmonology Provider 12/30/21 05/03/23 Jean Guerin MD [address] [place] [address] Assigned PCP 12/22/22 05/29/23 Nilton Roach PA-C [address] [facility] 100 [place] [address] Assigned PCP 05/30/23 Farzana Sabillon MD [address] [facility] 200 [place] [address] Assigned Endocrinology Provider 08/27/23 documented as of this encounter
--- OUTSIDE RECORDS SUMMARY | 2023-09-18 10:29 | XMS_ITS | Encounter Summary ---
Author Name Unknown Organization [facility] Address [address] [place] [address] Care Team Providers Care Log Chipper Name Role Phone Nilton Roach PA-C Primary Care Provider Nilton Roach PA-C Unavailable +[phone] Betty Gupta MD Unavailable [phone] Gray Lora MD Unavailable [phone] Nik Bryan MD Unavailable Keegan Mcdonald MD Unavailable Keegan Mcdonald MD Unavailable Jean uGerin MD Unavailable +- [phone] Mehreen Toussaint NP Primary Care Provider [phone] Nilton Roach PA-C Unavailable [phone] Farzana Sabillon MD Unavailable +[phone] Encounter Details Date Type Department Care Team [...] Sex Assigned at Female 04/23/2018 4:04 PM INVESTMENT BANKING ASSOCIATE Gender Identity Female 04/23/2018 4:04 PM INVESTMENT BANKING ASSOCIATE Sexual Orientation Straight 04/23/2018 4: 04 PM INVESTMENT BANKING ASSOCIATE COVID-19 Exposure Response Date Recorded In the last month, have you been in contact with someone who was confirmed or suspected to have Coronavirus / COVID-19? No / Unsure 08/05/2020 8:05 AM CDT documented as of this encounter Plan of Treatment Upcoming Encounters Date Type Department Care Team (Late st Contact Info) Description 10/01/2023 2:00 PM CDT Virtual Visit [facility] [address] [facility] 200 [place] [phone] Farzana Sabillon MD [address] [place] [address] 200 [place] [address] 11/20/2023 11:00 AM CDT Office Visit [facility] [address] [phone] Jean Guerin MD 6401 [place] [address] 12/05/2023 11:00 AM CDT Lab [facility] [address] [place] [address] 12/12/2023 11:00 AM CDT Virtual Visit [facility] [place] [address] [phone] Saroj Romeo MD 420 [place], [place] [address] documented as of this encounter Visit Diagnoses Not on filedocumented in this encounter Additional Health Concerns Infection Onset Date Last Indicated Resolved Time Rule Out COVID-19 09/12/2020 09/12/2020 09/13/2020 5:31 PM CDT Assessment Noted Time PHQ-9 Depression Total Score: 2 09/21/19 20 7:02 AM CDT documented as of this encounter Care Teams Log Chipper Relationship Specialty Start Date End Date Nilton Roach PA-C [address] [place] [address] PCP - General Physician Elastic Attacher Overlock 01/02/17 03/06/23 Mehreen Toussaint NP [address] [address] PCP - General 03/07/23 Nilton Roach PA-C [address] [place] [address] Assigned PCP 12/13/16 12/21/22 [place] [address] [place] [address] Assigned Rheumatology Provider 02/26/20 Gray Lora MD [address] [place] [address] Assigned Pulmonology Provider 02/26/20 05/27/21 Nik Bryan MD 909 [place] [address] Assigned Cancer Care Provider 02/26/20 11/17/21 Keegan Mcdonald MD [address] [address] Assigned Pulmonology Provider 07/09/21 09/02/21 Keegan Mcdonald MD [address] [address] Assigned Pulmonology Provider 12/30/21 05/03/23 Jean Guerin MD [address] [address] Assigned PCP 12/22/22 05/29/23 Nilton Roach PA-C 290 [facility] 100 [place] [address] Assigned PCP 05/30/23 Farzana Sabillon MD [address] 200 [place] [address] Assigned Endocrinology Provider 08/27/23 documented as of this encounter
--- OUTSIDE RECORDS SUMMARY | 2023-09-18 10:29 | XMS_ITS | Encounter Summary ---
Author Name Unknown Organization [facility] Address [address] [place] [address] Care Team Providers Care Branch Associate Teller Name Role Phone Nilton Roach PA-C Primary Care Provider Nilton Roach PA-C Unavailable [phone] Betty Gupta MD Unavailable Gray Lora MD Unavailable [phone] Nik Bryan MD Unavailable Keegan Mcdonald MD Unavailable [phone] Keegan Mcdonald MD Unavailable Jean Guerin MD Unavailable Mehreen Toussaint NP Primary Care Provider [phone] Nilton Roach PA-C Unavailable Farzana Sabillon MD Unavailable [phone] Reason for Visit * Reason Onset Date Comments Immunization 01/17/2021 Encounter Details Date Type Department Care Team (Late st Contact Info) Description 01/17/2021 [facility] [place] [facility] [address] [facility] [address] [place] [phone] Nilton Roach PA-C [address] [place], [place] [id number] Immunization Social History Tobacco Use Types Packs/Day Years Used Date Smoking Tobacco: Former Cigarettes 1 40 0 06/06/1979 - 06/06/2019 Smokeless Tobacco: Never Comments:Occasional Alcohol Use Standard Drinks/Week Comments No 0 (1 standard drink = 0.6 oz pur e alcohol) PHQ-2 Answer Date Recorded PHQ-2 Score 0 12/07/2020 Sex and Gender Information Value Date Recorded Sex Assigned at Female 04/23/2018 4:04 PM SHIP'S SURVEYOR Gender Identity Female 04/23/2018 4:04 PM SHIP'S SURVEYOR Sexual Orientation Straight 04/23/2018 4: 04 PM SHIP'S SURVEYOR COVID-19 Exposure Response Date Recorded In the last month, have you been in contact with someone who was confirmed or suspected to have Coronavirus / COVID-19? No / Unsure 01/10/2021 12:59 PM CDT documented as of this encounter Plan of Treatment Upcoming Encounters Date Type Department Care Team (Late st Contact Info) Description 10/01/2023 2:00 PM CDT Virtual Visit [facility] [address] [place] [phone] Farzana Sabillon MD [address] [place], [place] [address] 11/20/2023 11:00 AM CDT Office Visit [facility] [address] [address] Jean Guerin MD 9445 [place] [address] 12/05/2023 11:00 AM CDT Lab [facility] [address] [place] [address] 12/12/2023 11:00 AM CDT Virtual Visit [facility] [address] [phone] Saroj Romeo MD [address] [place] [address] documented as of this encounter Visit Diagnoses Not on filedocumented in this encounter Additional Health Concerns Assessment Noted Time PHQ-9 Depression Total Score: 2 09/21/19 20 7:02 AM CDT documented as of this encounter Care Teams Branch Associate Teller Relationship Specialty Start Date End Date Nilton Roach PA-C [address] [place] [address] PCP - General Physician Racing Manager 01/02/17 03/06/23 Mehreen Toussaint NP [address] [address] PCP - General 03/07/23 Nilton Roach PA-C [address] [place] [address] Assigned PCP 12/13/16 12/21/22 [place] [address] [address] [place] [address] Assigned Rheumatology Provider 02/26/20 Gray Lora MD [address] [place] [address] Assigned Pulmonology Provider 02/26/20 05/27/21 Nik Bryan MD [address] [place] [address] Assigned Cancer Care Provider 02/26/20 11/17/21 Keegan Mcdonald MD [address] [place] [address] [address] Assigned Pulmonology Provider 07/09/21 09/02/21 Keegan Mcdonald MD [address] [place] [address] [address] Assigned Pulmonology Provider 12/30/21 05/03/23 Jean Guerin MD [address] [place] [address] [address] Assigned PCP 12/22/22 05/29/23 Nilton Roach PA-C [address] [place] [address] 100 [place] [address] Assigned PCP 05/30/23 Farzana Sabillon MD [address] [place] [address] 200 [place] [address] Assigned Endocrinology Provider 08/27/23 documented as of this encounter
--- OUTSIDE RECORDS SUMMARY | 2023-09-18 10:29 | XMS_ITS | Encounter Summary ---
Author Name Unknown Organization [facility] Address [address] [place] [address] Care Team Providers Care Buyer Internship Name Role Phone Nilton Roach PA-C Primary Care Provider Nilton Roach PA-C Unavailable [phone] Nilton Roach PA-C Unavailable [phone] Betty Gupta MD Unavailable Gray Lora MD Unavailable [phone] Reginald Wen MD Unavailable [phone] Nik Bryan MD Unavailable Tracie Godinez MD Unavailable + [phone] Reginald Wen MD Unavailable [phone] Keegan Mcdonald MD Unavailable [phone] Keegan Mcdonald MD Unavailable [phone] Jean Guerin MD Unavailable + [phone] Mehreen Toussaint NP Primary Care Provider [phone] Nilton Roach PA-C Unavailable [phone] Farzana Sabillon MD Unavailable [phone] Reason for Visit * Reason Comments Medication Refill Encounter Details Date Type Department Care Team (Late st Contact Info) Description 03/17/2018 Refill [facility] [address] [place] [address] [place] [address] [place], [place] [address] Medication Refill Social History Tobacco Use Types Packs/Day Years Used Date Smoking Tobacco: Some Days Cigarettes Smokeless Tobacco: Never Comments:Occasional Alcohol Use Standard Drinks/Week Comments No 0 (1 standard drink = 0.6 oz pur e alcohol) Sex and Gender Information Value Date Recorded Sex Assigned at Female 04/23/2018 4:04 PM BUSINESS MANAGEMENT PROFESSOR Gender Identity Female 04/23/2018 4:04 PM BUSINESS MANAGEMENT PROFESSOR Sexual Orientation Straight 04/23/2018 4: 04 PM BUSINESS MANAGEMENT PROFESSOR documented as of this encounter Miscellaneous Notes * Telephone Encounter - Adrianne Garner RN - 03/18/2018 10:06 AM BUSINESS MANAGEMENT PROFESSOR Faxed refill request from: [facility] Medication requested: Plaquenil Prescription Written: 11/18/17, discontinued on 12/08/17 for allergic response Last qty: 60, one refill Pt's last office visit: 02/21/18 Next scheduled office visit: 05/21/18 Last ophthalmology visit: Per last note If she will be continued on Plaquenil 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 will 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 in 3 - [...] 07/10/2017 3.7 3.4 - 5.0 g/dL Final NESS MANAGEMENT PROFESSOR documented in this encounter Plan of Treatment Upcoming Encounters Date Type Department Care Team (Late st Contact Info) Description 10/01/2023 2:00 PM CDT Virtual Visit [facility] [address] [facility] [address] [place] [phone] Farzana Sabillon MD [address] [place] [address] 200 [place], [place] [address] 11/20/2023 11:00 AM CDT Office Visit [facility] [address] [phone] Jean Guerin MD [address] [facility] [place] [address] 12/05/2023 11:00 AM CDT Lab [facility] [address] [place] [address] 12/12/2023 11:00 AM CDT Virtual Visit [facility] [place] [address] [facility] 200 [place] [phone] Saroj Romeo MD 420 [place], [place] [address] documented as of this encounter Visit Diagnoses Diagnosis Systemic lupus erythematosus, unspecified SLE type, unspecified organ involvement status (H) documented in this encounter Additional Health Concerns Infection Onset Date Last Indicated Resolved Time Rule Out COVID-19 09/12/2020 09/12/2020 09/13/2020 5:31 PM CDT Assessment Noted Time PHQ-9 Depression Total Score: 3 12/14/19 18 2:01 PM CDT documented as of this encounter Care Teams Buyer Internship Relationship Specialty Start Date End Date Nilton Roach PA-C [address] [address] PCP - General Physician Feed Grinder 01/02/17 03/06/23 Nilton Roach PA-C [address] [place] [address] PCP - Assigned PCP 12/13/16 07/08/18 Mehreen Toussaint NP [address] [address] PCP - General 03/07/23 Nilton Roach PA-C [address] [place] [address] Assigned PCP 12/13/16 12/21/22 [place] [address] [place] [address] Assigned Rheumatology Provider 02/26/20 Gray Lora MD [address] [place] [address] Assigned Pulmonology Provider 02/26/20 05/27/21 Reginald Wen MD [address] [place], [place] [address] Assigned Musculoskeletal Provider 05/29/20 07/19/20 Nik Bryan MD [address] [place] [address] Assigned Cancer Care Provider 02/26/20 11/17/21 Tracie Godinez MD [address] 5845[address] Assigned Musculoskeletal Provider 05/22/20 05/28/20 Reginald Wen MD [address] [place] [address] Assigned Musculoskeletal Provider 02/26/20 05/21/20 Keegan Mcdonald MD [address] [place] [address] Assigned Pulmonology Provider 07/09/21 09/02/21 Keegan Mcdonald MD [address] [place] [address] Assigned Pulmonology Provider 12/30/21 05/03/23 Jean Guerin MD [address] [place] [address] Assigned PCP 12/22/22 05/29/23 Nilton Roach PA-C [address] 1705[address] Assigned PCP 05/30/23 Farzana Sabillon MD [address] [facility] 200 [place] [address] Assigned Endocrinology Provider 08/27/23 documented as of this encounter
--- OUTSIDE RECORDS SUMMARY | 2023-09-18 10:29 | XMS_ITS | Encounter Summary ---
Author Name Unknown Organization [facility] Address [address] [place] [address]. [place] [address] Care Team Providers Care Back Tender Fourdrinier Name Role Phone Nilton Roach PA-C Primary Care Provider Nilton Roach PA-C Unavailable Betty Gupta MD Unavailable Gray Lora MD Unavailable [phone] Nik Bryan MD Unavailable Keegan Mcdonald MD Unavailable Keegan Mcdonald MD Unavailable Jean Guerin MD Unavailable Mehreen Toussaint NP Primary Care Provider Nilton Roach PA-C Unavailable Farzana Sabillon MD Unavailable [phone] Reason for Referral * Consultation (Routine) - Closed Specialty Diagnoses / Procedures Referred By Ramsey arias Referred To Contact Ophthalmology Diagnoses Long-[place] [address] [place] [address] Mg Oph [address] [place] [address] Referral ID Status Reason Start Date Expiration Date Visits Re quested Visits Authorized [id number] Closed 10/18/2020 10/18/2021 1 1 Question Answer Referral Type: Optometry/Ophthalmology Reason for Referral: Other My Clinical Question Is: Plaquenil toxicity screening Preferred Locations: [facility] Clinic [facility] Scheduling Instructions: [facility] will call you to coordinate your care as prescribed by the provider. If you don? t hear from a franchise sales representative within 2 business days, please call the number listed above. Comments Please be aware that coverage of these services is subject to the terms and limitations of your health insurance plan. Call member services at your health plan with any benefit or coverage questions. [facility] will call you to coordinate your care as prescribed by the provider. If you don? t hear from a franchise sales representative within 2 business days, please call the number listed above. Encounter Details Date Type Department Care Team (Late Contact Info) Description 10/18/2020 [facility] Medical Advice [address] [address] Betty Gupta MD [address] [place] [address] Long-term use of Plaquenil (Primary Dx) [...] Sex Assigned at Female 04/23/2018 4:04 PM VOCATIONAL SCHOOL TEACHER Gender Identity Female 04/23/2018 4:04 PM VOCATIONAL SCHOOL TEACHER Sexual Orientation Straight 04/23/2018 4: 04 PM VOCATIONAL SCHOOL TEACHER documented as of this encounter Plan of Treatment Upcoming Encounters Date Type Department Care Team (Late Contact Info) Description 10/01/2023 2:00 PM CDT Virtual Visit [facility] [address] [place] [address] Farzana Sabillon MD [address] [facility] 200 [place] [address] 11/20/2023 11:00 AM CDT Office Visit [facility] [place] 909 [place] [phone] Jean Guerin MD 6401 [place] [address] 12/05/2023 11:00 AM CDT Lab [facility] [address] [place] [phone] 12/12/2023 11:00 AM CDT Virtual Visit [facility] [place] [address] [phone] Saroj Romeo MD 420 [place] [address] Scheduled Referrals Name Type Priority Associated Diagnoses Orde r Schedule EYE ADULT REFERRAL Referral Routine Long-term use of Plaquenil Expected: 10/18/2020, Expires: 10/18/2021 documented as of this encounter Visit Diagnoses Diagnosis Long-term use of Plaquenil- Primary documented in this encounter Additional Health Concerns Assessment Noted Time PHQ-9 Depression Total Score: 2 09/21/19 20 7:02 AM CDT documented as of this encounter Care Teams Back Tender Fourdrinier Relationship Specialty Start Date End Date Nilton Roach PA-C [address] [facility] 100 [place] [address] PCP - General Physician Concrete Pipe Maker 01/02/17 03/06/23 Mehreen Toussaint NP [address] [address] PCP - General 03/07/23 Nilton Roach PA-C [address] [place] [address] Assigned PCP 12/13/16 12/21/22 [place] [address] [place] [address] Assigned Rheumatology Provider 02/26/20 Gray Lora MD [address] [place] [address] Assigned Pulmonology Provider 02/26/20 05/27/21 Nik Bryan MD [address] [place] [address] Assigned Cancer Care Provider 02/26/20 11/17/21 Keegan Mcdonald MD [address] [place] [address] Assigned Pulmonology Provider 07/09/21 09/02/21 Keegan Mcdonald MD [address] [place] [address] [address] Assigned Pulmonology Provider 12/30/21 05/03/23 Jean Guerin MD [address] [place] [address] [address] Assigned PCP 12/22/22 05/29/23 Nilton Roach PA-C [address] [place] [address] Assigned PCP 05/30/23 Farzana Sabillon MD [address] [place] [address] 200 [place] [address] Assigned Endocrinology Provider 08/27/23 documented as of this encounter
== END 2023-09-18 10:25 | disposition home or self-care (01) ==
LOC: RAD 10:24
PROVIDERS: PCP Nurse Practitioner Family; Visit Provider Nurse Practitioner Family
DX: R07.9 Chest pain, unspecified (principal); R00.2 Palpitations
CPT/HCPCS: 93306

== ENCOUNTER 2024-08-12 20:12 | Inpatient (IN) | payer MEDICARE, BC, SELFPAY ==
[2024-08-12] VITALS (23 sets, daily range): BP systolic 95–153; BP diastolic 63–93; PULSE 97–120; RESP 11–32; TEMP 36.7; O2SAT 84–99; BMI 20.8
--- OUTSIDE RECORDS SUMMARY | 2024-08-12 20:14 | XMS_ITS | Encounter Summary ---
Author Organization [facility] Address [address] [place] [address]. [place] [address] Care Team Providers Care Pack Master Name Role Phone Betty Gupta MD Unavailable [phone] Keegan Mcdonald MD Unavailable Jean Guerin MD Unavailable [phone] Mehreen Toussaint NP Primary Care Provider Nilton Roach PA-C Unavailable Farzana Sablilon MD Unavailable Saroj Romeo MD Unavailable [facility] center[facility] olive[facility] MD Unavailable [phone] Sobia Domingo MD Unavailable Carleen Garcia Unavailable [phone] Kimberlee Logan [facility] Unavailable Unavailable Kimberlee Logan [facility] Unavailable Unavailable Reason for Visit * Reason Onset Date Comments Prior Auth - Medication 04/16/2023 JACKELIN bryant Encounter Details Date Type Department Care Team (Late st Contact Info) Description 04/16/2023 [facility] [address] [address] [place] [address] [place] [address] Prior Auth - Medication (PAP [...] School Help Needed Not on file 01/25 Comments No Sex and Gender Information Value Date Recorded Sex Assigned at Female 04/23/2018 4:04 PM HAND ENGRAVER Legal Sex Female 9:39 AM HAND ENGRAVER Gender Identity Female 04/23/2018 4:04 PM HAND ENGRAVER Sexual Orientation Straight 04/23/2018 4: 04 PM HAND ENGRAVER documented as of this encounter Miscellaneous Notes * Telephone Encounter - Sandhya Kim - 05/08/2023 1:23 PM CST Spoke to Vicki they have the application and it is under review They will have a ETA by 05/20/2023 Yoseph Hutchinson, [facility] Special[facility] Pharmacy Clinic Liaison [facility] [email or web address] ENGRAVER * Telephone Encounter - Lars Henning - 05/01/2023 5:42 PM CST Images from the original note were not included. Date: 05/01 Comments: Spoke to PT. Pt has not filled out their portion yet but will finish it tomorrow and sendback to Sandhya ENGRAVER * Telephone Encounter - Sandhya Kim - 04/30/2023 11:16 AM CST Re faxed renewal application to clinic in [place] to complete Yoseph Hutchinson, [facility] Special[facility] Pharmacy Clinic [facility] [email or web address] ENGRAVER * Telephone Encounter - Sandhya Kim - 04/22/2023 11:30 AM CST Marni Brandti-- faxing this PAP application to you guys since Candy will be in [place] this week [facility] will fax pap application to FAX # [phone] ISANTI Thank you please review and get signatures -- you can fax directly to vicki please FAX [phone] Yoseph Hutchinson, [facility] Special[facility] Clinic [facility] [email or web address] ENGRAVER * Telephone Encounter - Sandhya Kim - 04/19/2023 8:29 AM CST FREE DRUG APPLICATION INITIATED Medication: BENLYSTA Free Drug Program Name: Benlysta Isabella Date Submitted: 04/19/2023 8:29 AM Phone #: [phone] Fax #: [phone] Additional Information: [facility] Teacher has sent application for MD to complete and fax to [email or web address] to Rns Yoseph Hutchinson, [facility] Special[facility] Clinic [facility] [email or web address] ENGRAVER documented in this encounter Plan of Treatment Upcoming Encounters Date Type Department Care Team (Late st Contact Info) Description 10/05/2024 1:00 PM CDT Virtual Visit [facility] [address] [place] [phone] Farzana Sabillon MD [address] [place] [address] 10/06/2024 1:00 PM CDT Office Visit [facility] [place] 909 [place] [phone] Jean Guerin MD [address] [place] [address] 12/25/2024 10:30 AM CDT Office Visit [facility] [address] [facility] [address] [place] [phone] Sobia Domingo MD [address] [facility] 215 [place], [place] [address] documented as of this encounter Visit Diagnoses Not on filedocumented in this encounter Additional Health Concerns Assessment Noted Time PHQ-9 Depression Total Score: 2 09/21/19 20 7:02 AM CDT documented as of this encounter Care Teams Pack Master Relationship Specialty Start Date End Date Mehreen Toussaint NP [facility] [address] [place] [address] PCP - General 03/07/23 [place] [address] [place] [address] Assigned Rheumatology Provider 02/26/20 03/27/24 [place] [address] [place] [address] Assigned Pulmonology Provider 12/30/21 05/03/23 Jean Guerin MD [address] [place] [address] Assigned PCP 12/22/22 05/29/23 Nilton Roach PA-C [address] [place] [address] Assigned PCP 05/30/23 02/25/24 Farzana Sabillon MD [address] [place] [address] Assigned Endocrinology Provider 08/27/23 [place] [address] [place] [address] Assigned Rheumatology Provider 03/28/24 06/27/24 Jean Guerin MD [address] [place] [address] Critical Care 06/12/24 Sobia Domingo MD [address] [place] [address] Assigned Rheumatology Provider 06/28/24 Carleen Garcia EP [facility] [address] [place] [address] Cardiac Rehabilitation Therapist 06/30/24 Kimberlee Logan [facility] Pharmacist Pharmacist 07/01/24 Kimberlee Logan [facility] Assigned MTM Pharmacist 07/26/24 documented as of this encounter
--- OUTSIDE RECORDS SUMMARY | 2024-08-12 20:14 | XMS_ITS | Encounter Summary ---
Author Organization [place] Address [address] [place] [address] Care Team Providers Care Channel Opener Outsoles Name Role Phone Mehreen Toussaint NP Primary Care Provider Farzana Sabillon MD Unavailable [phone] Jean Guerin MD Unavailable + [phone] Sobia Domingo MD Unavailable Carleen Garcia Unavailable [phone] Reason for Visit * Rehab Therapy Cardiac Therapy (Routine: Next available opening) - Authorized Specialty Diagnoses / Procedures Referred By Ramsey arias Referred To Contact CARDIAC REHAB Diagnoses Stage 4 very severe COPD by GOLD classification (H) [address] [address] Phone: tel: Referral ID Status Reason Start Date Expiration Date V isits Requested Visits Authorized [id number] Authorized 06/26/2024 05/05/2025 72 72 Encounter Details Date Type Department Care Team (Latest Contact Info) Description 06/30/2024 1:59 PM PATTERNMAKER APPRENTICE METAL - 06/30/2024 11:59 PM PATTERNMAKER APPRENTICE METAL Hospital Encounter [facility] [address] [place] [address] Jean Guerin MD [address] [id number] 2, Rh Pulmonary Rehab Discharge Disposition: Home or Self Care Social History Tobacco Use Types Packs/Day Years Used Date Smoking Tobacco: Former Cigarettes 1.5 38.1 0 05/08/1974 - 06/06/2012 Smokeless Tobacco: Never Comments:Occasional Alcohol Use Standard Drinks/Week Comments No 0 (1 standard drink = 0.6 oz pur e alcohol) PHQ-2 Answer Date Recorded PHQ-2 Score 1 06/17/2024 Adolescent Education Answer Date Record ed Getting School Help Needed Not on file 01/25 Comments No Sex and Gender Information Value Date Recorded Sex Assigned at Female 04/23/2018 4:04 PM PATTERNMAKER APPRENTICE METAL Legal Sex Female 9:39 AM PATTERNMAKER APPRENTICE METAL Gender Identity Female 04/23/2018 4:04 PM PATTERNMAKER APPRENTICE METAL Sexual Orientation Straight 04/23/2018 4: 04 PM PATTERNMAKER APPRENTICE METAL documented as of this encounter Medications at Time of Discharge albuterol (PROAIR HFA/PROVENTIL HFA/VENTOLIN HFA) 108 (90 Base) MCG/ACT inhalerIndications: Simple chronic bronchitis (H) INHALE 2 PUFFS BY MOUTH EVERY 6 HOURS NEEDED FOR WHEEZING OR SHORTNESS OF BREATH 18 g 5 5 azithromycin (ZITHROMAX) 250 MG tabletIndications:S tage 4 very severe COPD by GOLD classification (H) Take 1 tablet (250 mg) by mouth three times a week. 36 tablet 11 5 diphenhydrAMINE (BENADRYL) 25 MG capsule Take 25 mg by mouth every 6 hours as needed for itching or allergies Takes at HS for itching ipratropium - albuterol 0.5 mg/2.5 mg/3 mL (DUONEB) 0.5-2.5 (3) MG/3ML neb solutionIndications :Simple chronic bronchitis (H) INHALE 1 VIAL VIA NEBULIZER FOUR TIMES DAILY 1080 mL 1 5 mometasone-formoter ol (DULERA) 200-5 MCG/ACT inhalerIndications: Stage 4 very severe COPD by GOLD classification (H) Inhale 2 puffs into the lungs 2 times daily. 13 g 11 5 MUCINEX 600 MG 12 hr tablet TAKE 2 TABLETS BY MOUTH TWICE A DAY FOR 20 DAYS. 0 7 rivaroxaban ANTICOAGULANT (XARELTO) 20 MG TABS tabletIndications:A ntiphospholipid antibody syndrome,Embolism and thrombosis (H) Take 1 tablet (20 mg) by mouth daily (with dinner) 30 tablet 11 1 tiotropium (SPIRIVA) 18 MCG inhaled capsuleIndications: Stage 4 very severe COPD by GOLD classification (H) Inhale 1 capsule (18 mcg) into the lungs daily. 30 capsule 11 5 tiZANidine (ZANAFLEX) 2 MG tabletIndications:C hronic bilateral low back pain with bilateral sciatica TAKE 1-2 TABLETS (2-4 MG) BY MOUTH 3 TIMES DAILY NEEDED FOR MUSCLE SPASMS 180 tablet 1 tiZANidine (ZANAFLEX) 4 MG capsuleIndications: Chronic bilateral low back pain with bilateral sciatica Take 1-2 capsules (4-8 mg) by mouth nightly as needed for muscle spasms 180 capsule 1 1 triamcinolone (KENALOG) 0.1 % external creamIndications:Ec zema, unspecified type Apply topically 2 times daily For up to 2 weeks at a time 45 g 1 1 Belimumab 200 MG/ML SOAJIndications:Sys temic lupus erythematosus, organ or system involvement unspecified (H),Antiphospholipi d syndrome,Encounter for screening for other viral diseases Inject 200 mg Subcutaneous every 7 days Hold for signs of infection and seek medical attention. 4 mL 12 3 07/01/19 25 Calcium Citrate-Vitamin D (CITRACAL + D PO) Take 1 tablet by mouth 2 times daily 07/01/19 25 UNABLE TO FIND MEDICATION NAME: Tumeric Gummies 07/01/19 25 documented as of this encounter Plan of Treatment Upcoming Encounters Date Type Department Care Team (Late st Contact Info) Description 10/05/2024 1:00 PM CDT Virtual Visit [facility] [address] [place] [address] Farzana Sabillon MD [address] [place], [place] [address] 10/06/2024 1:00 PM CDT Office Visit [facility] [address] [phone] Jean Guerin MD [address] [place] [address] 12/25/2024 10:30 AM CDT Office Visit [facility] [place] [address] [facility] 200 [place] [phone] Sobia Domingo MD [address] [facility] 215 [place], [place] [address] documented as of this encounter Visit Diagnoses Not on filedocumented in this encounter Additional Health Concerns Assessment Noted Time PHQ-9 Depression Total Score: 2 09/21/19 20 7:02 AM CDT documented as of this encounter Care Teams Channel Opener Outsoles Relationship Specialty Start Date End Date Mehreen Toussaint NP [facility] 225 [place] [address] PCP - General 03/07/23 Farzana Sabiloln MD [address] [facility] 200 [place] [address] Assigned Endocrinology Provider 08/27/23 Jean Guerin MD [address] [place] [address] Critical Care 06/12/24 Sobia Domingo MD [address] [place] [address] Assigned Rheumatology Provider 06/28/24 Carleen Garcia EP [facility] [address] [address] Cardiac Rehabilitation Therapist 06/30/24 documented as of this encounter
--- OUTSIDE RECORDS SUMMARY | 2024-08-12 20:14 | XMS_ITS | Encounter Summary ---
Author Organization [place] Address [address] [place] [address] Care Team Providers Care Product Support Specialist Name Role Phone Mehreen Toussaint NP Primary Care Provider Farzana Sabillon MD Unavailable [phone] Jean Guerin MD Unavailable + [phone] Sobia Domingo MD Unavailable Carleen Garcia Unavailable [phone] Kimberlee Logan [facility] Unavailable Unavailable Encounter Details Date Type Department Care Team (Latest Contact Info) Description 07/06/2024 Travel Social History Tobacco Use Types Packs/Day [...] Sex Assigned at Female 04/23/2018 4:04 PM BROOD STATION MANAGER Legal Sex Female 9:39 AM BROOD STATION MANAGER Gender Identity Female 04/23/2018 4:04 PM BROOD STATION MANAGER Sexual Orientation Straight 04/23/2018 4: 04 PM BROOD STATION MANAGER documented as of this encounter Plan of Treatment Upcoming Encounters Date Type Department Care Team ( st Contact Info) Description 10/05/2024 1:00 PM CDT Virtual Visit [facility] [address] [place] [phone] Farzana Sabillon MD [address] [place] [address] 10/06/2024 1:00 PM CDT Office Visit [facility] [address] [phone] Jean Guerin MD [address] [place] [address] 12/25/2024 10:30 AM CDT Office Visit [address] [phone] Sobia Domingo MD [address] [address] documented as of this encounter Visit Diagnoses Not on filedocumented in this encounter Additional Health Concerns Assessment Noted Time PHQ-9 Depression Total Score: 2 09/21/19 20 7:02 AM CDT documented as of this encounter Care Teams Product Support Specialist Relationship Specialty Start Date End Date Mehreen Toussaint NP [address] [address] PCP - General 03/07/23 Farzana Sabillon MD [address] [place] [address] Assigned Endocrinology Provider 08/27/23 Jean Guerin MD [address] [place] [address] Critical Care 06/12/24 Sobia Domingo MD [address] [address] Assigned Rheumatology Provider 06/28/24 Carleen Garcia EP [facility] [address] [facility] [place], [place] [address] Cardiac Rehabilitation Therapist 06/30/24 Kimberlee Logan [facility] Pharmacist Pharmacist 07/01/24 documented as of this encounter
--- OUTSIDE RECORDS SUMMARY | 2024-08-12 20:14 | XMS_ITS | Encounter Summary ---
Author Organization [place] Address [address] [place] [address] Care Team Providers Care Search Engine Optimization Consultant Name Role Phone Nilton Roach PA-C Primary Care Provider Nilton Roach PA-C Unavailable [phone] Betty Gupta MD Unavailable [phone] Gray Lora MD Unavailable [phone] Reginald Wen MD Unavailable +[phone] Nik Bryan MD Unavailable Tracie Godinez MD Unavailable + [phone] Reginald Wen MD Unavailable +[phone] Keegan Mcdonald MD Unavailable +[phone] Keegan Mcdonald MD Unavailable +[phone] Jean Guerin MD Unavailable + [phone] Mehreen Toussaint NP Primary Care Provider Nilton Roach PA-C Unavailable [phone] Farzana Sabillon MD Unavailable +[phone] Saroj Romeo MD Unavailable Jean Guerin MD Unavailable + [phone] Sobia Domingo MD Unavailable Carleen Garcia Unavailable Kimberlee Logan [facility] Unavailable Unavailable Kimberlee Logan [facility] Unavailable Unavailable Reason for Visit * Reason Comments Medication Refill Encounter Details Date Type Department Care Team (Late Contact Info) Description 01/12/2020 Refill [facility] [address] [facility] [address] [place] [phone] Nilton Roach PA-C [address] [facility] [address] [place], [place] [id number] Medication Refill Social History Tobacco Use Types Packs/Day Years Used Date Smoking Tobacco: Former Cigarettes 1 40 0 06/06/1979 - 06/06/2019 Smokeless Tobacco: Never Comments:Occasional Alcohol Use Standard Drinks/Week Comments No 0 (1 standard drink = 0.6 oz pur e alcohol) PHQ-2 Answer Date Recorded PHQ-2 Score 0 05/14/2018 Comments No Sex and Gender Information Value Date Recorded Sex Assigned at Female 04/23/2018 4:04 PM TECHNOLOGIST INFECTIOUS DISEASE Legal Sex Female 9:39 AM TECHNOLOGIST INFECTIOUS DISEASE Gender Identity Female 04/23/2018 4:04 PM TECHNOLOGIST INFECTIOUS DISEASE Sexual Orientation Straight 04/23/2018 4: 04 PM TECHNOLOGIST INFECTIOUS DISEASE COVID-19 Exposure Response Date Recorded In the last month, have you been in contact with someone who was confirmed or suspected to have Coronavirus / COVID-19? No / Unsure 12/31/2019 7:44 AM CDT documented as of this encounter Miscellaneous Notes * Telephone Encounter - Aelx Mcgraw RN - 01/12/2020 7:30 PM CDT Pending Prescriptions: Disp Refills tiZANidine (ZANAFLEX) 2 MG tablet [Pharmac*180 ta*5 Sig: TAKE 1-2 TABS BY MOUTH 3 TIMES DAILY NEEDED FOR MUSCLE SPASMS Routing refill request to provider for review/approval because: Drug not on the G refill protocol documented in this encounter Plan of Treatment Upcoming Encounters Date Type Department Care Team (Late Contact Info) Description 10/05/2024 1:00 PM CDT Virtual Visit [facility] [address] [place] [phone] Farzana Sabillon MD [address] [place] [address] 10/06/2024 1:00 PM CDT Office Visit [facility] [address] [phone] Jean Guerin MD [address] [place], [place] [address] 12/25/2024 10:30 AM CDT Office Visit [facility] [address] [facility] 200 [place] [phone] Sobia Domingo MD 606 [address] 215 [place] [address] documented as of this encounter Visit Diagnoses Diagnosis Chronic bilateral low back pain with bilateral sciatica documented in this encounter Additional Health Concerns Infection Onset Date Last Indicated Resolved Time Rule Out COVID-19 09/12/2020 09/12/2020 09/13/2020 5:31 PM CDT Assessment Noted Time PHQ-9 Depression Total Score: 2 09/21/19 20 7:02 AM CDT documented as of this encounter Care Teams Search Engine Optimization Consultant Relationship Specialty Start Date End Date Nilton Roach PA-C [address] [facility] [address] [place] [address] PCP - General Physician Roving Frame Tender 01/02/17 03/06/23 Mehreen Toussaint NP [address] [address] PCP - General 03/07/23 Nilton Roach PA-C [address] [address] Assigned PCP 12/13/16 12/21/22 [place] [address] [place], [place] [address] Assigned Rheumatology Provider 02/26/20 03/27/24 Gray Lora MD [address] [place] [address] Assigned Pulmonology Provider 02/26/20 05/27/21 Reginald Wen MD 4000 [place], [place] [address] Assigned Musculoskeletal Provider 05/29/20 07/19/20 Nik Bryan MD [address] [place] [address] Assigned Cancer Care Provider 02/26/20 11/17/21 Tracie Godinez MD [address] [address] Assigned Musculoskeletal Provider 05/22/20 05/28/20 Reginald Wne MD 4000 [place], [place] 4[address] Assigned Musculoskeletal Provider 02/26/20 05/21/20 Keegan Mcdonald MD [address] [facility] [place] [address] Assigned Pulmonology Provider 07/09/21 09/02/21 Keegan Mcdonald MD [address] [address] Assigned Pulmonology Provider 12/30/21 05/03/23 Jean Guerin MD [address] [address] Assigned PCP 12/22/22 05/29/23 Nilton Roach PA-C [address] [place], [place] [address] Assigned PCP 05/30/23 02/25/24 Farzana Sabillon MD [address] [place], [place] [address] Assigned Endocrinology Provider 08/27/23 [place] [address] [place], [place] [address] Assigned Rheumatology Provider 03/28/24 06/27/24 Jean Guerin MD [address] [address] Critical Care 06/12/24 Sobia Domingo MD [address] [place] [address] Assigned Rheumatology Provider 06/28/24 Carleen Garcia EP [facility] [address] [address] Cardiac Rehabilitation Therapist 06/30/24 Kimberlee Logan RPH Pharmacist Pharmacist 07/01/24 Kimberlee Logan RPH Assigned MTM Pharmacist 07/26/24 documented as of this encounter
--- OUTSIDE RECORDS SUMMARY | 2024-08-12 20:14 | XMS_ITS | Encounter Summary ---
Author Organization [place] Address [address] [place] [address] Care Team Providers Care Roving Frame Tender Name Role Phone Nilton Roach PA-C Primary Care Provider Nilton Roach PA-C Unavailable [phone] Betty Gupta MD Unavailable [phone] Gray Lora MD Unavailable [phone] Nik Bryan MD Unavailable Keegan Mcdonald MD Unavailable Keegan Mcdonald MD Unavailable [phone] Jean Guerin MD Unavailable + [phone] Mehreen Toussaint NP Primary Care Provider Nilton Roach PA-C Unavailable [phone] Farzana Sabillon MD Unavailable [phone] Saroj Romeo MD Unavailable Jean Guerin MD Unavailable + [phone] Sobia Domingo MD Unavailable Carleen Garcia Unavailable [phone] Kimberlee Logan [facility] Unavailable Unavailable Kimberlee Logan RP Unavailable Unavailable Encounter Details Date Type Department [...] Answer Date Recorded PHQ-2 Score 0 08/05/2020 Comments No Sex and Gender Information Value Date Recorded Sex Assigned at Female 04/23/2018 4:04 PM SALES COMMUNICATIONS MANAGER Legal Sex Female 9:39 AM SALES COMMUNICATIONS MANAGER Gender Identity Female 04/23/2018 4:04 PM SALES COMMUNICATIONS MANAGER Sexual Orientation Straight 04/23/2018 4: 04 PM SALES COMMUNICATIONS MANAGER COVID-19 Exposure Response Date Recorded In the last month, have you been in contact with someone who was confirmed or suspected to have Coronavirus / COVID-19? No / Unsure 08/05/2020 8:05 AM CDT documented as of this encounter Plan of Treatment Upcoming Encounters Date Type Department Care Team (Late st Contact Info) Description 10/05/2024 1:00 PM CDT Virtual Visit [facility] [address] [facility] [address] [place] [phone] Farzana Sabillon MD [address] 200 [place], [place] [address] 10/06/2024 1:00 PM CDT Office Visit [facility] [address] [phone] Jean Guerin MD 6401 [place], [place] [address] 12/25/2024 10:30 AM CDT Office Visit [facility] [place] [address] [place] [address] [address] [place] [phone] Sobia Domingo MD 606 [address] 215 [place], [place] [address] documented as of this encounter Visit Diagnoses Not on filedocumented in this encounter Additional Health Concerns Infection Onset Date Last Indicated Resolved Time Rule Out COVID-19 09/12/2020 09/12/2020 09/13/2020 5:31 PM CDT Assessment Noted Time PHQ-9 Depression Total Score: 2 09/21/19 7:02 AM CDT documented as of this encounter Care Teams Roving Frame Tender Relationship Specialty Start Date End Date Nilton Roach PA-C [address] [place] [address] PCP - General Physician Filter Worker 01/02/17 03/06/23 Mehreen Toussaint NP [address] [address] PCP - General 03/07/23 Nilton Roach PA-C [address] [place] [address] Assigned PCP 12/13/16 12/21/22 [place] [address] [place] [address] Assigned Rheumatology Provider 02/26/20 03/27/24 Gray Lora MD [address] [place] [address] Assigned Pulmonology Provider 02/26/20 05/27/21 Nik Bryan MD [address] [place] [address] Assigned Cancer Care Provider 02/26/20 11/17/21 Keegan Mcdonald MD [address] [place] [address] Assigned Pulmonology Provider 07/09/21 09/02/21 Keegan Mcdonald MD [address] [place] [address] Assigned Pulmonology Provider 12/30/21 05/03/23 Jean Guerin MD [address] [place] [address] Assigned PCP 12/22/22 05/29/23 Nilton Roach PA-C [address] [place] [address] Assigned PCP 05/30/23 02/25/24 Farzana Sabillon MD [address] [place], [place] [address] Assigned Endocrinology Provider 08/27/[address] [place] [address] [place] [address] Assigned Rheumatology Provider 03/28/24 06/27/24 Jean Guerin MD [address] [place] [address] Critical Care 06/12/24 Sobia Domingo MD [address] [place] [address] Assigned Rheumatology Provider 06/28/24 Carleen Garcia EP [facility] [address] [place], [place] [address] Cardiac Rehabilitation Therapist 06/30/24 Kimberlee Logan RP Pharmacist Pharmacist 07/01/24 Kimberlee Logan RP Assigned MTM Pharmacist 07/26/24 documented as of this encounter
--- OUTSIDE RECORDS SUMMARY | 2024-08-12 20:14 | XMS_ITS | Encounter Summary ---
Author Organization [place] Address [address] [place] [address] Care Team Providers Care Formula Room Worker Name Role Phone Nilton Roach PA-C Primary Care Provider Nilton Roach PA-C Unavailable [phone] Betty Gupta MD Unavailable [phone] Gray Lora MD Unavailable [phone] Reginald Wen MD Unavailable +[phone] Nik Bryan MD Unavailable Tracie Godinez MD Unavailable + [phone] Reginald Wen MD Unavailable +[phone] Keegan Mcdonald MD Unavailable +[phone] Keegan Mcdonald MD Unavailable [phone] Jean Guerin MD Unavailable + [phone] Mehreen Toussaint NP Primary Care Provider Nilton Roach PA-C Unavailable +[phone] Farzana Sabillon MD Unavailable +[phone] Saroj Romeo MD Unavailable Jean Guerin MD Unavailable + [phone] Sobia Domingo MD Unavailable Carleen Garcia EP Unavailable Kimberlee Logan [facility] Unavailable Unavailable DesmondJdn Antonio [facility] Unavailable Unavailable Encounter Details Date Type Department Care Team (Late st Contact Info) Description 05/03/2020 MyC Medical Advice [facility] [place] [address] [address] [place] [address] Chana Gillette CMA Social History Tobacco [...] Sex Assigned at Female 04/23/2018 4:04 PM BILLIARD PLAYER Legal Sex Female 9:39 AM BILLIARD PLAYER Gender Identity Female 04/23/2018 4:04 PM BILLIARD PLAYER Sexual Orientation Straight 04/23/2018 4: 04 PM BILLIARD PLAYER documented as of this encounter Plan of Treatment Upcoming Encounters Date Type Department Care Team (Late st Contact Info) Description 10/05/2024 1:00 PM CDT Virtual Visit [facility] [address] [facility] [address] [place] [phone] Farzana Sabillon MD [address] [place] [address] 200 [place], [place] [address] 10/06/2024 1:00 PM CDT Office Visit [facility] [address] [address] Jean Guerin MD [address] [address] 12/25/2024 10:30 AM CDT Office Visit [facility] [address] 200 [place] [phone] Sobia Domingo MD [address] [address] documented as of this encounter Visit Diagnoses Not on filedocumented in this encounter Additional Health Concerns Infection Onset Date Last Indicated Resolved Time Rule Out COVID-19 09/12/2020 09/12/2020 09/13/2020 5:31 PM CDT Assessment Noted Time PHQ-9 Depression Total Score: 2 09/21/19 7:02 AM CDT documented as of this encounter Care Teams Formula Room Worker Relationship Specialty Start Date End Date Nilton Roach PA-C [address] [place] [address] PCP - General Physician Supervisor Cutting And Boning 01/02/17 03/06/23 Mehreen Toussaint NP [address] [address] PCP - General 03/07/23 Nilton Roach PA-C [address] [place] [address] Assigned PCP 12/13/16 12/21/22 [place] [address] [place] [address] Assigned Rheumatology Provider 02/26/20 03/27/24 Gray Lora MD 909 [place] [address] Assigned Pulmonology Provider 02/26/20 05/27/21 Reginald Wen MD [address] [facility] [place] [address] Assigned Musculoskeletal Provider 05/29/20 07/19/20 Nik Bryan MD 909 [place] [address] Assigned Cancer Care Provider 02/26/20 11/17/21 Tracie Godinez MD [address] [address] Assigned Musculoskeletal Provider 05/22/20 05/28/20 Reginald Wen MD 4000 [place] [address] Assigned Musculoskeletal Provider 02/26/20 05/21/20 Keegan Mcdonald MD [address] [place] [address] Assigned Pulmonology Provider 07/09/21 09/02/21 Keegan Mcdonald MD [address] [place] [address] Assigned Pulmonology Provider 12/30/21 05/03/23 Jean Guerin MD [address] [place] [address] Assigned PCP 12/22/22 05/29/23 Nilton Roach PA-C [address] [address] Assigned PCP 05/30/23 02/25/24 Farzana Sabillon MD [address] 200 [place] [address] Assigned Endocrinology Provider 08/27/23 [place] [address] [place] [address] Assigned Rheumatology Provider 03/28/24 06/27/24 Jean Guerin MD [address] [facility] [place] [address] Critical Care 06/12/24 Sobia Domingo MD [address] [address] Assigned Rheumatology Provider 06/28/24 Carleen Garcia EP [facility] [address] [place] [address] Cardiac Rehabilitation Therapist 06/30/24 Kimberlee Logan RP Pharmacist Pharmacist 07/01/24 Kimberlee Logan RPH Assigned MTM Pharmacist 07/26/24 documented as of this encounter
--- OUTSIDE RECORDS SUMMARY | 2024-08-12 20:14 | XMS_ITS | Encounter Summary ---
Author Organization [facility] Address [address] [place] [address] Care Team Providers Care Vocational Rehabilitation Technician Name Role Phone Mehreen Toussaint NP Primary Care Provider Farzana Sabillon MD Unavailable [phone] Jean Guerin MD Unavailable + [phone] Sobia Domingo MD Unavailable Carleen Garcia Unavailable [phone] Encounter Details Date Type Department Care Team (Latest Contact Info) Description 06/30/2024 Travel Social History Tobacco Use Types Packs/Day [...] Sex Assigned at Female 04/23/2018 4:04 PM FIRST AID TEACHER Legal Sex Female 9:39 AM FIRST AID TEACHER Gender Identity Female 04/23/2018 4:04 PM FIRST AID TEACHER Sexual Orientation Straight 04/23/2018 4: 04 PM FIRST AID TEACHER documented as of this encounter Plan of Treatment Upcoming Encounters Date Type Department Care Team ( st Contact Info) Description 10/05/2024 1:00 PM CDT Virtual Visit [facility] [address] [place] [address] Farzana Sabillon MD [address] [place] [address] 10/06/2024 1:00 PM CDT Office Visit [facility] [address] [phone] Jean Guerin MD [address] [place] [address] 12/25/2024 10:30 AM CDT Office Visit [facility] [address] [facility] [address] [place] [phone] Sobia Domingo MD [address] [address] documented as of this encounter Visit Diagnoses Not on filedocumented in this encounter Additional Health Concerns Assessment Noted Time PHQ-9 Depression Total Score: 2 09/21/19 20 7:02 AM CDT documented as of this encounter Care Teams Vocational Rehabilitation Technician Relationship Specialty Start Date End Date Mehreen Toussaint NP [address] [address] PCP - General 03/07/23 Farzana Sabillon MD [address] [place] [address] Assigned Endocrinology Provider 08/27/23 Jean Guerin MD [address] [place] [address] Critical Care 06/12/24 Sobia Domingo MD [address] [address] Assigned Rheumatology Provider 06/28/24 Carleen Garcia EP [facility] [address] [facility] [place] [address] Cardiac Rehabilitation Therapist 06/30/24 documented as of this encounter
--- OUTSIDE RECORDS SUMMARY | 2024-08-12 20:14 | XMS_ITS ---
Author Organization [facility] Address [address] [place] [address] [address] [place] [address] Care Team Providers Care Landscape Nurseryman Name Role Phone Mehreen Toussaint Primary Care Provider Unavaila Jareth Davidson Unavailable [phone] REASON FOR VISIT pre/post-op call Encounters Encounter Location Date Provider Diagnosis [facility] [address] [place] [address] [address] [place] [address] 07/05/2023 Jareth Higgins Plan Of Treatment No Information Progress Notes * Jeanna GONZALEZB: (63 yo F)Acc No.[id number]:07/05/2023 Patient: Keila Christianson :1960 A ge:63 Y S ex:Female Phone: Address:[address] [place] [address] * true * Date: Generated for Mian montano/Jayson/eTransmitting on: 0 08/12/2024 08:14 PM CDT
--- OUTSIDE RECORDS SUMMARY | 2024-08-12 20:14 | XMS_ITS | Encounter Summary ---
Author Organization [facility] Address [address] [place] [address] Care Team Providers Care Driver Salesman Name Role Phone Nilton Roach PA-C Primary Care Provider Betty Gupta MD Unavailable Keegan Mcdonald MD Unavailable Jean Guerin MD Unavailable [phone] Mehreen Toussaint NP Primary Care Provider Nilton Roach PA-C Unavailable Farzana Sabillon MD Unavailable [phone] Saroj Romeo MD Unavailable Jean Guerin MD Unavailable [phone] Sobia Domingo MD Unavailable Carleen Garcia Unavailable [phone] Kimberlee Logan [facility] Unavailable Unavailable Kimberlee Logan [facility] Unavailable Unavailable Encounter Details Date Type Department Care Team (Late st Contact Info) Description 02/14/2023 [facility] [address] [address] Lucila Roa Social History Tobacco Use Types Packs/Day Years [...] Sex Assigned at Female 04/23/2018 4:04 PM EMPLOYEE WELLNESS/FITNESS COORDINATOR Legal Sex Female 9:39 AM EMPLOYEE WELLNESS/FITNESS COORDINATOR Gender Identity Female 04/23/2018 4:04 PM EMPLOYEE WELLNESS/FITNESS COORDINATOR Sexual Orientation Straight 04/23/2018 4: 04 PM EMPLOYEE WELLNESS/FITNESS COORDINATOR documented as of this encounter Plan of Treatment Upcoming Encounters Date Type Department Care Team (Late st Contact Info) Description 10/05/2024 1:00 PM CDT Virtual Visit [facility] [address] [facility] [address] [place] [phone] Farzana Sabillon MD [address] [facility] 200 [place], [place] [address] 10/06/2024 1:00 PM CDT Office Visit [facility] [address] [address] Jean Guerin MD 6404 [place] [address] 12/25/2024 10:30 AM CDT Office Visit [facility] [address] 200 [place] [address] Sobia Domingo MD [address] [place] [address] 215 [place], [place] [address] documented as of this encounter Visit Diagnoses Not on filedocumented in this encounter Additional Health Concerns Assessment Noted Time PHQ-9 Depression Total Score: 2 09/21/19 20 7:02 AM CDT documented as of this encounter Care Teams Driver Salesman Relationship Specialty Start Date End Date Nilton Roach PA-C [address] [facility] 100 [place] [address] PCP - General Physician Lumber Driver 01/02/17 03/06/23 Mehreen Toussaint NP [address] [address] PCP - General 03/07/23 [place] [address] [facility] [place] [address] Assigned Rheumatology Provider 02/26/20 03/27/24 [place] [address] [place] [address] Assigned Pulmonology Provider 12/30/21 05/03/23 Jean Guerin MD [address] [facility] [place] [address] Assigned PCP 12/22/22 05/29/23 Nilton Roach PA-C [address] [place] [address] Assigned PCP 05/30/23 02/25/24 Farzana Sabillon MD [address] [facility] 200 [place], [place] [address] Assigned Endocrinology Provider 08/27/23 [place] [address] [place] [address] Assigned Rheumatology Provider 03/28/24 06/27/24 Jean Guerin MD [address] [place] [address] Critical Care 06/12/24 Sobia Domingo MD [address], [place] [address] Assigned Rheumatology Provider 06/28/24 Carleen Garcia EP [facility] [address] [address] Cardiac Rehabilitation Therapist 06/30/24 Kimberlee Logan [facility] Pharmacist Pharmacist 07/01/24 Kimberlee Logan RP Assigned MTM Pharmacist 07/26/24 documented as of this encounter
--- OUTSIDE RECORDS SUMMARY | 2024-08-12 20:14 | XMS_ITS | Encounter Summary ---
Author Organization [facility] Address [address] [place] [address]. [place] [address] Care Team Providers Care Sales Operations Specialist Name Role Phone Betty Gupta MD Unavailable [phone] Mehreen Toussaint NP Primary Care Provider [phone] Nilton Roach PA-C Unavailable Farzana Sabillon MD Unavailable Saroj Romeo MD Unavailable Jean Guerin MD Unavailable [phone] Sobia Domingo MD Unavailable Carleen Garcia Unavailable [phone] Kimberlee Logan [facility] Unavailable Unavailable Kimberlee Logan [facility] Unavailable Unavailable Encounter Details Date Type Department Care Team (Late st Contact Info) Description 07/01/2023 [facility] Medical Advice [facility] [address] [place] [address] [place] [address] [place] [address] Social History Tobacco Use Types [...] Sex Assigned at Female 04/23/2018 4:04 PM CORPORATE RESPONSIBILITY OFFICER Legal Sex Female 9:39 AM CORPORATE RESPONSIBILITY OFFICER Gender Identity Female 04/23/2018 4:04 PM CORPORATE RESPONSIBILITY OFFICER Sexual Orientation Straight 04/23/2018 4: 04 PM CORPORATE RESPONSIBILITY OFFICER documented as of this encounter Plan of Treatment Upcoming Encounters Date Type Department Care Team (Late st Contact Info) Description 10/05/2024 1:00 PM CDT Virtual Visit [facility] [address] [place] [address] [place] [phone] Farzana Sabillon MD [address] [place] [address] 200 [place], [place] [address] 10/06/2024 1:00 PM CDT Office Visit [facility] [address] [phone] Jean Guerin MD 0681 [place], [place] [address] 12/25/2024 10:30 AM CDT Office Visit [facility] [address] 200 [place] [phone] Sobia Domingo MD [address] [place] [address] 215 [place], [place] [address] documented as of this encounter Visit Diagnoses Not on filedocumented in this encounter Additional Health Concerns Assessment Noted Time PHQ-9 Depression Total Score: 2 09/21/19 20 7:02 AM CDT documented as of this encounter Care Teams Sales Operations Specialist Relationship Specialty Start Date End Date Mehreen Toussaint NP [facility] 225 [place] [address] PCP - General 03/07/23 [place] [address] [place] [address] Assigned Rheumatology Provider 02/26/20 03/27/24 Nilton Roach PA-C [address] [place] [address] Assigned PCP 05/30/23 02/25/24 Farzana Sabillon MD [address] [place] [address] Assigned Endocrinology Provider 08/27/23 [place] [address] [place] [address] Assigned Rheumatology Provider 03/28/24 06/27/24 Jean Guerin MD [address] [place] [address] Critical Care 06/12/24 Sobia Domingo MD [address] [facility] 215 [place] [address] Assigned Rheumatology Provider 06/28/24 Carleen Garcia EP [facility] [address] [place] [address] Cardiac Rehabilitation Therapist 06/30/24 Kimberlee Loagn [facility] Pharmacist Pharmacist 07/01/24 Kimberlee Logan [facility] Assigned MTM Pharmacist 07/26/24 documented as of this encounter
--- OUTSIDE RECORDS SUMMARY | 2024-08-12 20:14 | XMS_ITS | Encounter Summary ---
Author Organization [facility] Address [address] [place] [address] Care Team Providers Care Senior Major Gifts Officer Name Role Phone Nilton Roach PA-C Primary Care Provider iNlton Roach PA-C Unavailable [phone] Betty Gupta MD Unavailable [phone] Gray Lora MD Unavailable [phone] Reginald Wen MD Unavailable [phone] Nik Bryan MD Unavailable Tracie Godinez MD Unavailable + [phone] Reginald Wen MD Unavailable [phone] Keegan Mcdonald MD Unavailable [phone] Keegan Mcdonald MD Unavailable [phone] Jean Guerin MD Unavailable + [phone] Mehreen Toussaint NP Primary Care Provider Nilton Roach PA-C Unavailable [phone] Farzana Sabillon MD Unavailable [phone] Saroj Romeo MD Unavailable Jean Guerin MD Unavailable + [phone] Sobia Domingo MD Unavailable Carleen Garcia EP Unavailable Jd Logann Antonio [facility] Unavailable Unavailable DesmondJdn Antonio [facility] Unavailable Unavailable Encounter Details Date Type Department Care Team (Late st Contact Info) Description 05/17/2020 [facility] Medical Advice [facility] [address] [place] [address] Nelida Aragon, MANAGER SWITCH Social History Tobacco Use Types Packs/Day Years [...] Assigned at Female 04/23/2018 4:04 PM SUPERVISOR TRAVEL TRAILER Legal Sex Female 9:39 AM SUPERVISOR TRAVEL TRAILER Gender Identity Female 04/23/2018 4:04 PM SUPERVISOR TRAVEL TRAILER Sexual Orientation Straight 04/23/2018 4: 04 PM SUPERVISOR TRAVEL TRAILER documented as of this encounter Plan of Treatment Upcoming Encounters Date Type Department Care Team (Late st Contact Info) Description 10/05/2024 1:00 PM CDT Virtual Visit [place] [address] [facility] [address] [place] [address] Farzana Sabillon MD [address] [place] [address] 200 [place] [address] 10/06/2024 1:00 PM CDT Office Visit [facility] [address] [address] Jean Guerin MD [address] [place] [address] 12/25/2024 10:30 AM CDT Office Visit [facility] [address] [phone] Sobia Domingo MD [address] [address] documented as of this encounter Visit Diagnoses Not on filedocumented in this encounter Additional Health Concerns Infection Onset Date Last Indicated Resolved Time Rule Out COVID-19 09/12/2020 09/12/2020 09/13/2020 5:31 PM CDT Assessment Noted Time PHQ-9 Depression Total Score: 2 09/21/19 7:02 AM CDT documented as of this encounter Care Teams Senior Major Gifts Officer Relationship Specialty Start Date End Date Nilton Roach PA-C [address] [place] [address] PCP - General Physician Animal Control Officer 01/02/17 03/06/23 Mehreen Toussaint NP [address] [address] PCP - General 03/07/23 Nilton Roach PA-C [address] [place] [address] Assigned PCP 12/13/16 12/21/22 [place] [address] [place] [address] Assigned Rheumatology Provider 02/26/20 03/27/24 Gray Lora MD [address] [place] [address] Assigned Pulmonology Provider 02/26/20 05/27/21 Reginald Wen MD [address] [place] [address] Assigned Musculoskeletal Provider 05/29/20 07/19/20 Nik Bryan MD [address] [place] [address] Assigned Cancer Care Provider 02/26/20 11/17/21 Tracie Godinez MD [address] [place] [address] Assigned Musculoskeletal Provider 05/22/20 05/28/20 Reginald Wen MD [address] [place] [address] Assigned Musculoskeletal Provider 02/26/20 05/21/20 Keegan Mcdonald MD [address] [place] [address] Assigned Pulmonology Provider 07/09/21 09/02/21 Keegan Mcdonald MD [address] [place] [address] Assigned Pulmonology Provider 12/30/21 05/03/23 Jean Guerin MD [address] [place] [address] Assigned PCP 12/22/22 05/29/23 Nilton Roach PA-C [address] [place] [address] Assigned PCP 05/30/23 02/25/24 Farzana Sabillon MD [address] 200 [place] [address] Assigned Endocrinology Provider 08/27/23 [place] [address] [place] [address] Assigned Rheumatology Provider 03/28/24 06/27/24 Jean Guerin MD [address] [place] [address] Critical Care 06/12/24 Sobia Domingo MD [address] [facility] 215 [place] [address] Assigned Rheumatology Provider 06/28/24 Carleen Garcia EP [facility] [address] [place] [address] Cardiac Rehabilitation Therapist 06/30/24 Kimberlee Logan RP Pharmacist Pharmacist 07/01/24 Kimberlee Logan RPH Assigned MTM Pharmacist 07/26/24 documented as of this encounter
--- OUTSIDE RECORDS SUMMARY | 2024-08-12 20:14 | XMS_ITS | Encounter Summary ---
Author Organization [facility] Address [address] [place] [address] Care Team Providers Care Stripper Soft Plastic Name Role Phone Mehreen Toussaint NP Primary Care Provider [phone] Farzana Sabillon MD Unavailable [phone] Jean Guerin MD Unavailable [phone] Sobia Domingo MD Unavailable Encounter Details Date Type Department Care Team (Latest Contact Info) Description 06/29/2024 Travel Social History Tobacco Use Types Packs/Day [...] Sex Assigned at Female 04/23/2018 4:04 PM DATA ENTRY ASSISTANT Legal Sex Female 9:39 AM DATA ENTRY ASSISTANT Gender Identity Female 04/23/2018 4:04 PM DATA ENTRY ASSISTANT Sexual Orientation Straight 04/23/2018 4: 04 PM DATA ENTRY ASSISTANT documented as of this encounter Plan of Treatment Upcoming Encounters Date Type Department Care Team (Late st Contact Info) Description 10/05/2024 1:00 PM CDT Virtual Visit [facility] [address] [place] [address] Farzana Sabillon MD [address] [place] [address] 10/06/2024 1:00 PM CDT Office Visit [facility] [address] [phone] Jean Guerin MD [address] [place] [address] 12/25/2024 10:30 AM CDT Office Visit [facility] [address] [facility] 200 [place] [address] Sobia Domingo MD [address] [address] documented as of this encounter Visit Diagnoses Not on filedocumented in this encounter Additional Health Concerns Assessment Noted Time PHQ-9 Depression Total Score: 2 09/21/19 20 7:02 AM CDT documented as of this encounter Care Teams Stripper Soft Plastic Relationship Specialty Start Date End Date Mehreen Toussaint NP [address] [address] PCP - General 03/07/23 Farzana Sabillon MD [address] [place] [address] Assigned Endocrinology Provider 08/27/23 Jean Guerin MD [address] [place] [address] Critical Care 06/12/24 Sobia Domingo MD [address] [address] Assigned Rheumatology Provider 06/28/24 documented as of this encounter
--- OUTSIDE RECORDS SUMMARY | 2024-08-12 20:14 | XMS_ITS ---
Author Organization [facility] Address [address] [place] [address] 200 [place] [address] Care Team Providers Care Trolley Car Overhauler Name Role Phone Mehreen Toussaint Primary Care Provider Unavaila Jareth Davidson Unavailable [phone] Dov Yi Unavailable [phone] REASON FOR VISIT 4 Week Follow Up Medications Medication SIG (Take, Route, Frequency, Duration) Notes Start Date End Date Status Xarelto 20 MG 1 tablet with food O rally Once a day Active Azithromycin 250 MG as directed Orally t hree times a week Active Nortriptyline HCl 10 MG 1 capsule Orally At bedtime for 30 days Active Simvastatin 10 MG 2 tablets in the chiki charo Orally Once a day Active tiZANidine HCl 2 MG 1 tablet as needed O rally Three times a day Active Spiriva HandiHaler 18 MCG 1 capsule by i nhaling the contents of the capsule using the HandiHaler device Inhalation Once a day Active Symbicort 160-4.5 MCG/ACT 2 puffs Inhala tion Twice a day Active Albuterol Active tiZANidine HCl 4 MG 1 tablet as needed O rally once a day Active Encounters Encounter Location Date Provider Diagnosis [facility] [address] [facility] [address] [place] [address] 07/30/2023 Dov Yi Plan Of Treatment No Information Progress Notes * Jeanna GONZALEZB: (64 yo F)Acc No.[id number]:07/30/2023 Progress Notes Patient: Keila LI Provider: Roxanne Yi PA-C :1960 A ge:63 Y S ex:Female Date:07/30/2023 Phone: Address:[address] [place] [address] Gustavo on, [id number] Pcp:Mehreen Toussaint Subjective: * Chief Complaints: * 1 . 4 Week Follow Up. * Medical History: * Medications: T aking Nortriptyline HCl 10 MG Capsule 1 capsule Orally At bedtime , Taking Simvastatin 10 MG Tablet 2 tablets in the evening Orally Once a day , Taking tiZANidine HCl 2 MG Tablet 1 tablet as needed Orally Three times a day , Taking tiZANidine HCl 4 MG Tablet 1 tablet as needed Orally once a day , Taking Spiriva HandiHaler 18 MCG Capsule 1 capsule by inhaling the contents of the capsule using the HandiHaler device Inhalation Once a day , Taking Symbicort 160-4.5 MCG/ACT Aerosol 2 puffs Inhalation Twice a day , Taking Albuterol , Taking Xarelto 20 MG Tablet 1 tablet with food Orally Once a day , Taking Azithromycin 250 MG Tablet as directed Orally three times a week Objective: * Vitals: Assessment: Plan: * Treatment: * Billing Information: * Visit Code: * Procedure Codes: * Electronic signature of Donn Yi PA-C on 08/12/2024 at 08:14 PM CDT Sign off status: Pending * Provider: Roxanne Yi PA-C Date: 0 07/30/2023 Generated for Mian montano/Jayson/Isma on: 0 08/12/2024 08:14 PM CDT
--- OUTSIDE RECORDS SUMMARY | 2024-08-12 20:14 | XMS_ITS | Encounter Summary ---
Author Organization [facility] Address [address] [place] [address] Care Team Providers Care Rn Bariatric Name Role Phone Betty Gupta MD Unavailable Keegan Mcdonald MD Unavailable [phone] Jean Guerin MD Unavailable [phone] Mehreen Toussaint NP Primary Care Provider Nilton Roach PA-C Unavailable [phone] Farzana Sabillon MD Unavailable Saroj Romeo MD Unavailable Jean Guerin MD Unavailable [phone] Sobia Domingo MD Unavailable Carleen Garcia Unavailable Kimberlee Logan [facility] Unavailable Unavailable Kimberlee Logan [facility] Unavailable Unavailable Encounter Details Date Type Department Care Team (Late st Contact Info) Description 04/19/2023 [facility] [address] [place] [address] Sultana Kim Social History Tobacco Use [...] Sex Assigned at Female 04/23/2018 4:04 PM GARNETTER Legal Sex Female 9:39 AM GARNETTER Gender Identity Female 04/23/2018 4:04 PM GARNETTER Sexual Orientation Straight 04/23/2018 4: 04 PM GARNETTER documented as of this encounter Plan of Treatment Upcoming Encounters Date Type Department Care Team (Late st Contact Info) Description 10/05/2024 1:00 PM CDT Virtual Visit [facility] [address] [place] [phone] Farzana Sabillon MD [address] [place] [address] 200 [place], [place] [address] 10/06/2024 1:00 PM CDT Office Visit [facility] [address] [phone] Jena Guerin MD [address] [place], [place] [address] 12/25/2024 10:30 AM CDT Office Visit [facility] [address] 200 [place] [phone] Sobia Domingo MD [address] [place] [address] 215 [place], [place] [address] documented as of this encounter Visit Diagnoses Not on filedocumented in this encounter Additional Health Concerns Assessment Noted Time PHQ-9 Depression Total Score: 2 09/21/19 20 7:02 AM CDT documented as of this encounter Care Teams Rn Bariatric Relationship Specialty Start Date End Date Mehreen Toussaint NP [facility] 225 [place] [address] PCP - General 03/07/23 [place] [address] [place] [address] Assigned Rheumatology Provider 02/26/20 03/27/24 [place] [address] [place] [address] Assigned Pulmonology Provider 12/30/21 05/03/23 Jean Guerin MD [address] [place] [address] Assigned PCP 12/22/22 05/29/23 Nilton Roach PA-C [address] [facility] 100 [place] [address] Assigned PCP 05/30/23 02/25/24 Farzana Sabillon MD [address] [place] [address] Assigned Endocrinology Provider 08/27/23 [place] [address] [place] [address] Assigned Rheumatology Provider 03/28/24 06/27/24 Jean Guerin MD [address] [place] [address] Critical Care 06/12/24 Sobia Domingo MD [address] [place] [address] Assigned Rheumatology Provider 06/28/24 Carleen Garcia EP [facility] [address] [address] Cardiac Rehabilitation Therapist 06/30/24 Kimberlee Logan RP Pharmacist Pharmacist 07/01/24 Kimberlee Logan RPH Assigned MTM Pharmacist 07/26/24 documented as of this encounter
--- OUTSIDE RECORDS SUMMARY | 2024-08-12 20:14 | XMS_ITS | Encounter Summary ---
Author Organization [place] Address [address] [place] [address] Care Team Providers Care General Production Manager Name Role Phone Mehreen Toussaint NP Primary Care Provider [phone] Farzana Sabillon MD Unavailable [phone] Jean Guerin MD Unavailable [phone] Sobia Domingo MD Unavailable Carleen Garcia Unavailable [phone] Kimberlee Logan [facility] Unavailable Unavailable Kimberlee Logan [facility] Unavailable Unavailable Encounter Details Date Type Department Care Team (Late st Contact Info) Description 07/06/2024 [facility] [address] [address] Carol Lloyd Social History Tobacco Use Types [...] Sex Assigned at Female 04/23/2018 4:04 PM SUSTAINABILITY CONSULTANT Legal Sex Female 9:39 AM SUSTAINABILITY CONSULTANT Gender Identity Female 04/23/2018 4:04 PM SUSTAINABILITY CONSULTANT Sexual Orientation Straight 04/23/2018 4: 04 PM SUSTAINABILITY CONSULTANT documented as of this encounter Plan of Treatment Upcoming Encounters Date Type Department Care Team (Late st Contact Info) Description 10/05/2024 1:00 PM CDT [facility] [address] [place] [phone] Farzana Sabillon MD [address] [place], [place] [address] 10/06/2024 1:00 PM CDT Office Visit [facility] [address] [phone] Jean Guerin MD 6401 [place] [address] 12/25/2024 10:30 AM CDT Office Visit [facility] [address] [phone] Sobia Domingo MD [address] [place] [address] 215 [place], [place] [address] documented as of this encounter Visit Diagnoses Not on filedocumented in this encounter Additional Health Concerns Assessment Noted Time PHQ-9 Depression Total Score: 2 09/21/19 20 7:02 AM CDT documented as of this encounter Care Teams General Production Manager Relationship Specialty Start Date End Date Mehreen Toussaint NP [facility] 225 [place] [address] PCP - General 03/07/23 Farzana Sabillon MD [address] [place] [address] Assigned Endocrinology Provider 08/27/23 Jean Guerin MD [address] [address] Critical Care 06/12/24 Sobia Domingo MD [address] [place] [address] Assigned Rheumatology Provider 06/28/24 Carleen Garcia EP [facility] [address] [address] Cardiac Rehabilitation Therapist 06/30/24 Kimberlee Logan [facility] Pharmacist Pharmacist 07/01/24 Kimberlee Logan [facility] Assigned MTM Pharmacist 07/26/24 documented as of this encounter
--- OUTSIDE RECORDS SUMMARY | 2024-08-12 20:14 | XMS_ITS | Encounter Summary ---
Author Organization [place] Address [facility] [place] [address] Care Team Providers Care Nanoscience Technician Name Role Phone Mehreen Toussaint NP Primary Care Provider Farzana Sabillon MD Unavailable [phone] Jean Guerin MD Unavailable [phone] Sobia Domingo MD Unavailable Carleen Garcia Unavailable Kimberlee Logan [facility] Unavailable Unavailable Reason for Visit * Reason Onset Date Comments Prior Auth - Medication 07/02/2024 Benlysta Encounter Details Date Type Department Care Team (Late st Contact Info) Description 07/02/2024 Telephone [facility] [address] 200 [place] [address] Sobia Domingo MD [address] [place] [address] Prior Auth - Medication (Benlysta) Social History Tobacco Use Types Packs/Day Years [...] Sex Assigned at Female 04/23/2018 4:04 PM ADMINISTRATIVE OFFICE SPECIALIST Legal Sex Female 9:39 AM ADMINISTRATIVE OFFICE SPECIALIST Gender Identity Female 04/23/2018 4:04 PM ADMINISTRATIVE OFFICE SPECIALIST Sexual Orientation Straight 04/23/2018 4: 04 PM ADMINISTRATIVE OFFICE SPECIALIST documented as of this encounter Miscellaneous Notes * Telephone Encounter - Carol Lloyd - 07/07/2024 9:33 AM CST She is okay with the total cost, no M3P or FPAP needed NISTRATIVE OFFICE SPECIALIST * Telephone Encounter - Carol Lloyd - 07/06/2024 4:01 PM CST Prior Authorization Approval Medication: BENLYSTA 200 MG/ML [place] SOAJ Authorization Effective Date: 07/06/2024 Authorization Expiration Date: 07/03/2025 Approved Dose/Quantity: 4 Reference #: [id number] Insurance Company: Medicare Blue - Expected CoPay: $ CoPay Card Available: No Financial Assistance Needed: reached out to pt Which Pharmacy is filling the prescription: [facility] [place] [id number] [employer] [facility] Pharmacy Notified: yes Patient Notified: yes NISTRATIVE OFFICE SPECIALIST * Telephone Encounter - Carol Lloyd - 07/02/2024 4:14 PM CST PA Initiation Medication: BENLYSTA 200 MG/ML [place] SOAJ Insurance Company: Medicare Blue - Pharmacy Filling the Rx: [facility] - [address] Filling Pharmacy Phone: Filling Pharmacy Fax: Start Date: 07/02/2024 BXPYUXAK NISTRATIVE OFFICE SPECIALIST documented in this encounter Plan of Treatment Upcoming Encounters Date Type Department Care Team (Late st Contact Info) Description 10/05/2024 1:00 PM CDT Virtual Visit [facility] [address] [place] [phone] Farzana Sabillon MD [address] [place] [address] 10/06/2024 1:00 PM CDT Office Visit [facility] and [address] [phone] Jean Guerin MD [address] [place] [address] 12/25/2024 10:30 AM CDT Office Visit [address] [phone] Sobia Domingo MD 606 24[facility] 215 [place], [place] [address] documented as of this encounter Visit Diagnoses Not on filedocumented in this encounter Additional Health Concerns Assessment Noted Time PHQ-9 Depression Total Score: 2 09/21/19 20 7:02 AM CDT documented as of this encounter Care Teams Nanoscience Technician Relationship Specialty Start Date End Date Mehreen Toussaint NP [facility] 225 [place] [address] PCP - General 03/07/23 Farzana Sabillon MD [address] [place] [address] Assigned Endocrinology Provider 08/27/23 Jean Guerin MD [address] [address] Critical Care 06/12/24 Sobia Domingo MD [address] [facility] 215 [place] [address] Assigned Rheumatology Provider 06/28/24 Carleen Garcia EP [facility] [address] [address] Cardiac Rehabilitation Therapist 06/30/24 Kimberlee Logan [facility] Pharmacist Pharmacist 07/01/24 documented as of this encounter
--- OUTSIDE RECORDS SUMMARY | 2024-08-12 20:14 | XMS_ITS | Encounter Summary ---
Author Organization [place] Address [address] [place] [address] Care Team Providers Care Automatic Hemmer Name Role Phone Mehreen Toussaint NP Primary Care Provider Farzana Sabillon MD Unavailable [phone] Jean Guerin MD Unavailable + [phone] Sobia Domingo MD Unavailable Carleen Garcia Unavailable [phone] Kimberlee Logan [facility] Unavailable Unavailable Reason for Visit * Med Therapy Management (Routine: Next available opening) - Closed Specialty Diagnoses / Procedures Referred By Contsapphire t Referred To Contact Pharmacist Diagnoses Systemic lupus erythematosus, organ or system involvement unspecified (H) Sobia Domingo MD [address] [place] [address] Phone: tel: fax: Referral ID Status Reason Start Date Expiration Date Visits Re quested Visits Authorized [id number] Closed 06/26/2024 06/26/2025 1 1 Encounter Details Date Type Department Care Team (Latest Contact Info) Description 07/01/2024 2:30 PM TALENT SOURCING SPECIALIST Virtual Visit [facility] Rheumatology [facility] 909 [facility] 3rd [place] [address] Sobia Domingo MD [address] [place] [address] Kimberlee Logan RPH Systemic lupus erythematosus, unspecified SLE type, unspecified organ involvement status (H) (Primary Dx) Social History Tobacco Use [...] Sex Assigned at Female 04/23/2018 4:04 PM TALENT SOURCING SPECIALIST Legal Sex Female 9:39 AM TALENT SOURCING SPECIALIST Gender Identity Female 04/23/2018 4:04 PM TALENT SOURCING SPECIALIST Sexual Orientation Straight 04/23/2018 4: 04 PM TALENT SOURCING SPECIALIST documented as of this encounter Patient Instructions * Patient Instructions* Kimberlee Logan RPH - 07/01/2024 2:30 PM TALENT SOURCING SPECIALIST Recommendations from today's MTM visit: Once approved, restart Benlysta 200 mg under the skin weekly. Report infection, planned surgery, and/or disease flare to the rheumatology department. If PAP is required our liaisons will help you sign up for this. Continue to limit ibuprofen use given Xarelto. Continue turmeric gummies if finding benefit. Follow-up: 3 months after restart. Sees thickener operator 12/25/24. Needs CMR at follow up, relatively brief discussion today. It was great speaking with you today. I value your experience and would be very thankful for your time in providing feedback in our clinic survey. In the next few days, you may receive an email or text message from [employer] with a link to a survey related to your ???clinical pharmacist. To schedule another MTM appointment, please call the clinic directly or you may call the MTM scheduling line at [phone]. My Clinical Pharmacist's contact information: Please feel free to contact me with any questions or concerns you have. Kimberlee Logan, PharmD Medication Therapy Management Pharmacist [facility] NT SOURCING SPECIALIST documented in this encounter Progress Notes * Kimberlee Logan, [facility] - 07/01/2024 2:30 PM CST Medication Therapy Management (MTM) Encounter ASSESSMENT: Medication Adherence/Access: Monitor adherence, previously stopped Benlysta following an infection and did not restart. Note required PAP when last on Benlysta. Systemic lupus erythematosus: Patient reporting worsening joint pain and fatigue off Benlysta for > 12 months, previously worked well for her. Would benefit from restarting. Brief education provided today as she did not have any specific questions. PLAN: Once approved, restart Benlysta 200 mg under the skin weekly. Report infection, planned surgery, and/or disease flare to the rheumatology department. If PAP is required our liaisons will help you sign up for this. Continue to limit ibuprofen use given Xarelto. Continue turmeric gummies if finding benefit. Follow-up: 3 months after restart. Sees thickener operator 12/25/24. Needs CMR at follow up, relatively brief discussion today. SUBJECTIVE/OBJECTIVE: Keila Bello is a 64 year old female called for an initial visit. She was referred to me from Sobia Domingo MD. Reason for visit: Benlysta restart. Allergies/ADRs: Reviewed in chart Past Medical History: Reviewed in chart Tobacco: She reports that she quit smoking about 12 years ago. Her smoking use included cigarettes.She started smoking about 50 years ago. She has a 57.1 pack- year smoking history. She has never used smokeless tobacco. Alcohol: not assessed today Medication Adherence/Access: Previously stopped Benlysta following influenza infection and did not restart, see details below. Systemic lupus erythematosus: Turmeric gummies Ibuprofen 200 mg occasionally as needed Previously tried: hydroxychloroquine (itching), azathioprine (COPD worsening, fatigue) Per provider note, has pain in knuckles of left hand, fatigue, shortness of breath, and sores in nose. Other typical flare symptoms for her include peeling of skin on her ears and rash on cheeks. Waspreviously on Benlysta but has been on off it since last June, had influenza and resulting shortness of breath so held it and never restarted. She says she was previously on Benlysta PAP and wants to do this again. Does not take Tylenol, takes ibuprofen very infrequently due to being on Xarelto. Today's Vitals: There were no vitals taken for this visit. I spent 20 minutes with this patient today. All changes were made via collaborative practice agreement with Sobia Domingo. A copy of the visit note was provided to the patient's provider(s). A summary of these recommendations was sent via [employer]. Kimberlee Logan, PharmD Medication Therapy Management Pharmacist [facility] Telemedicine Visit Details Type of service: Telephone visit Start Time: 1430 End Time: 1450 Medication Therapy Recommendations SLE (systemic lupus erythematosus related syndrome) (H) 1 Current Medication: belimumab (BENLYSTA) subcutaneous injection (prefilled autoinjector) Current Medication Sig: Inject 1 mL (200 mg) subcutaneously every 7 days. Hold for signs of infection and seek medical attention. Rationale: Does not understand instructions - Adherence - Adherence Recommendation: Provide Adherence Intervention - Patient did not know to restart Benlysta followinginfection Status: Patient Agreed - Adherence/Education Identified Date: 07/01/2024 Completed Date: 07/01/2024 Electronically signed by Kimberlee Logan [facility] at 07/01/2024 3:25 PM TALENT SOURCING SPECIALIST documented in this encounter Plan of Treatment Upcoming Encounters Date Type Department Care Team (Late st Contact Info) Description 10/05/2024 1:00 PM CDT Virtual Visit [facility] [address] [place] [address] Farzana Sabillon MD [address] [place], [place] [address] 10/06/2024 1:00 PM CDT Office Visit [facility] [address] [address] Jean Guerin MD [address] [address] 12/25/2024 10:30 AM CDT Office Visit [facility] 6525 [facility] 200 [place] [phone] Sobia Domingo MD [address] [facility] 215 [place] [address] documented as of this encounter Visit Diagnoses Diagnosis Systemic lupus erythematosus, unspecified SLE type, unspecified organ involvement status (H)- Primary documented in this encounter Additional Health Concerns Assessment Noted Time PHQ-9 Depression Total Score: 2 09/21/19 20 7:02 AM CDT documented as of this encounter Care Teams Automatic Hemmer Relationship Specialty Start Date End Date Mehreen Toussaint NP [address] [address] PCP - General 03/07/23 Farzana Sabillon MD [address] [facility] 200 [place] [address] Assigned Endocrinology Provider 08/27/23 Jean Guerin MD [address] [place] [id number] Critical Care 06/12/24 Sobia Domingo MD [address] [facility] 215 [place] [address] Assigned Rheumatology Provider 06/28/24 Carleen Garcia EP [facility] [address] [facility] [id number] Cardiac Rehabilitation Therapist 06/30/24 Kimberlee Logan, [facility] Pharmacist Pharmacist 07/01/24 documented as of this encounter
--- OUTSIDE RECORDS SUMMARY | 2024-08-12 20:15 | XMS_ITS | Encounter Summary ---
Author Organization [place] Address [address] [place] [address] Care Team Providers Care Fashion Show Director Name Role Phone Mehreen Toussaint NP Primary Care Provider Farzana Sabillon MD Unavailable [phone] Jean Guerin MD Unavailable + [phone] Sobia Domingo MD Unavailable Carleen Garcia Unavailable [phone] Kimberlee Logan [facility] Unavailable Unavailable Encounter Details Date Type Department Care Team (Latest Contact Info) Description 07/10/2024 Travel Social History Tobacco Use Types Packs/Day [...] Sex Assigned at Female 04/23/2018 4:04 PM ICE DELIVERY DRIVER Legal Sex Female 9:39 AM ICE DELIVERY DRIVER Gender Identity Female 04/23/2018 4:04 PM ICE DELIVERY DRIVER Sexual Orientation Straight 04/23/2018 4: 04 PM ICE DELIVERY DRIVER documented as of this encounter Plan of Treatment Upcoming Encounters Date Type Department Care Team ( st Contact Info) Description 10/05/2024 1:00 PM CDT Virtual Visit [facility] [address] [place] [phone] Farzana Sabillon MD [address] [place] [address] 10/06/2024 1:00 PM CDT Office Visit [facility] [address] [phone] Jean Guerin MD [address] [place] [address] 12/25/2024 10:30 AM CDT Office Visit [address] [phone] Sobia Domingo MD [address] [address] documented as of this encounter Visit Diagnoses Not on filedocumented in this encounter Additional Health Concerns Assessment Noted Time PHQ-9 Depression Total Score: 2 09/21/19 20 7:02 AM CDT documented as of this encounter Care Teams Fashion Show Director Relationship Specialty Start Date End Date Mehreen Toussaint NP [address] [address] PCP - General 03/07/23 Farzana Sabillon MD [address] [place] [address] Assigned Endocrinology Provider 08/27/23 Jean Guerin MD [address] [place] [address] Critical Care 06/12/24 Sobia Domingo MD [address] [facility] [address] [address] Assigned Rheumatology Provider 06/28/24 Carleen Garcia EP [facility] 6401 [facility] [place], [place] [address] Cardiac Rehabilitation Therapist 06/30/24 Kimberlee Logan [facility] Pharmacist Pharmacist 07/01/24 documented as of this encounter
--- OUTSIDE RECORDS SUMMARY | 2024-08-12 20:15 | XMS_ITS | Encounter Summary ---
Author Organization [place] Address [address] [place] [address] Care Team Providers Care Dance Master Name Role Phone Mehreen Toussaint NP Primary Care Provider Farzana Sabillon MD Unavailable [phone] eJan Guerin MD Unavailable + [phone] Sobia Domingo MD Unavailable Carleen Garcia Unavailable [phone] Kimberlee Logan [facility] Unavailable Unavailable Kimberlee Logan [facility] Unavailable Unavailable Encounter Details Date Type Department Care Team (Latest Contact Info) Description 07/27/2024 Travel Social History Tobacco Use Types Packs/Day [...] Sex Assigned at Female 04/23/2018 4:04 PM DIGITAL PROJECT MANAGER Legal Sex Female 9:39 AM DIGITAL PROJECT MANAGER Gender Identity Female 04/23/2018 4:04 PM DIGITAL PROJECT MANAGER Sexual Orientation Straight 04/23/2018 4: 04 PM DIGITAL PROJECT MANAGER documented as of this encounter Plan of Treatment Upcoming Encounters Date Type Department Care Team (Late st Contact Info) Description 10/05/2024 1:00 PM CDT Virtual Visit [facility] [address] [place] [phone] Farzana Sabillon MD [address] [facility] 200 [place] [address] 10/06/2024 1:00 PM CDT Office Visit [facility] [address] [phone] Jean Guerin MD [address] [place] [address] 12/25/2024 10:30 AM CDT Office Visit [address] [phone] Sobia Domingo MD [address] [place], [place] [address]E [facility] 215 [place], [place] [address] documented as of this encounter Visit Diagnoses Not on filedocumented in this encounter Additional Health Concerns Assessment Noted Time PHQ-9 Depression Total Score: 2 09/21/19 20 7:02 AM CDT documented as of this encounter Care Teams Dance Master Relationship Specialty Start Date End Date Mehreen Toussaint NP [address] [address] PCP - General 03/07/23 Farzana Sabillon MD [address] [place] [address] Assigned Endocrinology Provider 08/27/23 Jean Guerin MD [address] [place] [address] Critical Care 06/12/24 Sobia Domingo MD 606 [facility] [address] [address] Assigned Rheumatology Provider 06/28/[address] [facility] [address] [facility] [place] [address] Cardiac Rehabilitation Therapist 06/30/24 Kimberlee Logan RP Pharmacist Pharmacist 07/01/24 Kimberlee Logan RPH Assigned MTM Pharmacist 07/26/24 documented as of this encounter
--- OUTSIDE RECORDS SUMMARY | 2024-08-12 20:15 | XMS_ITS | Encounter Summary ---
Author Organization [place] Address [address] [place] [address] Care Team Providers Care Traveling Repair Accountant Name Role Phone Mehreen Toussaint NP Primary Care Provider Farzana Sabillon MD Unavailable [phone] Jean Guerin MD Unavailable + [phone] Sobia Domingo MD Unavailable Carleen Garcia Unavailable [phone] Kimberlee Logan [facility] Unavailable Unavailable Kimberlee Logan [facility] Unavailable Unavailable Encounter Details Date Type Department Care Team (Latest Contact Info) Description 08/06/2024 Travel Social History Tobacco Use Types Packs/Day [...] Sex Assigned at Female 04/23/2018 4:04 PM ELECTRO TECH Legal Sex Female 9:39 AM ELECTRO TECH Gender Identity Female 04/23/2018 4:04 PM ELECTRO TECH Sexual Orientation Straight 04/23/2018 4: 04 PM ELECTRO TECH documented as of this encounter Plan of Treatment Upcoming Encounters Date Type Department Care Team (Late st Contact Info) Description 10/05/2024 1:00 PM CDT Virtual Visit [facility] [address] [place] [phone] Farzana Sabillon MD [address] [facility] 200 [place] [address] 10/06/2024 1:00 PM CDT Office Visit [facility] [address] [phone] Jean Guerin MD [address] [place] [address] 12/25/2024 10:30 AM CDT Office Visit [address] [phone] Sobia Domingo MD [address] [place], [place] [address]E [facility] 215 [place], [place] [address] documented as of this encounter Visit Diagnoses Not on filedocumented in this encounter Additional Health Concerns Assessment Noted Time PHQ-9 Depression Total Score: 2 09/21/19 20 7:02 AM CDT documented as of this encounter Care Teams Traveling Repair Accountant Relationship Specialty Start Date End Date Mehreen Toussaint NP [address] [address] PCP - General 03/07/23 Farzana Sabillon MD [address] [place] [address] Assigned Endocrinology Provider 08/27/23 Jean Guerin MD [address] [place] [address] Critical Care 06/12/24 Sobia Domingo MD 606 [facility] [address] [address] Assigned Rheumatology Provider 06/28/24 Carleen Garcia EP [facility] [address] [address] Cardiac Rehabilitation Therapist 06/30/24 Kimberlee Logna RP Pharmacist Pharmacist 07/01/24 Kimberlee Logan RPH Assigned MTM Pharmacist 07/26/24 documented as of this encounter
--- OUTSIDE RECORDS SUMMARY | 2024-08-12 20:15 | XMS_ITS | Encounter Summary ---
Author Organization [place] Address [address] [place] [address] Care Team Providers Care Auto Finance Sales Rep Name Role Phone Mehreen Toussaint NP Primary Care Provider Farzana Sabillon MD Unavailable [phone] Jean Guerin MD Unavailable + [phone] Sobia Domingo MD Unavailable Carleen Garcia Unavailable [phone] Kimberlee Logan [facility] Unavailable Unavailable Reason for Visit * Rehab Therapy Cardiac Therapy (Routine: Next available opening) - Authorized Specialty Diagnoses / Procedures Referred By Contac t Referred To Contact CARDIAC REHAB Diagnoses Stage 4 very severe COPD by GOLD classification (H) [address] [address] Phone: tel: Referral ID Status Reason Start Date Expiration Date V isits Requested Visits Authorized [id number] Authorized 06/26/2024 05/05/2025 72 72 Encounter Details Date Type Department Care Team (Latest Contact Info) Description 07/14/2024 10:17 AM CDT - 07/14/2024 11:59 PM CDT Hospital Encounter [facility] Cardiac and Pulmonary Rehabilitation [address] [place] [address] Jean Guerin MD [address] [id number] 1, Rh Pulmonary Rehab Discharge Disposition: Home or [...] Sex Assigned at Female 04/23/2018 4:04 PM GANG HEMSTITCHING MACHINE OPERATOR Legal Sex Female 9:39 AM GANG HEMSTITCHING MACHINE OPERATOR Gender Identity Female 04/23/2018 4:04 PM GANG HEMSTITCHING MACHINE OPERATOR Sexual Orientation Straight 04/23/2018 4: 04 PM GANG HEMSTITCHING MACHINE OPERATOR documented as of this encounter Medications at [...] times a week. 36 tablet 11 5 belimumab (BENLYSTA) subcutaneous injection (prefilled autoinjector)Indica tions:Systemic lupus erythematosus, unspecified SLE type, unspecified organ involvement status (H) Inject 1 mL (200 mg) subcutaneously every 7 days. Hold for signs of infection and seek medical attention. 4 mL 3 5 diphenhydrAMINE (BENADRYL) 25 MG capsule Take [...] at a time 45 g 1 1 TURMERIC PO Take by mouth daily. documented as of this encounter Plan of Treatment Upcoming Encounters Date Type Department Care Team (Late st Contact Info) Description 10/05/2024 1:00 PM CDT Virtual Visit [facility] [address] [place] [address] Farzana Sabillon MD [address] [facility] 200 [place] [address] 10/06/2024 1:00 PM CDT Office Visit [facility] [address] [address] Jean Guerin MD [address] [place] [place] [address] 12/25/2024 10:30 AM CDT Office Visit [facility] [address] [facility] 200 [place] [phone] Sobia Domingo MD [address] [facility] 215 [place], [place] [address] documented as of this encounter Visit Diagnoses Not on filedocumented in this encounter Additional Health Concerns Assessment Noted Time PHQ-9 Depression Total Score: 2 09/21/19 20 7:02 AM CDT documented as of this encounter Care Teams Auto Finance Sales Rep Relationship Specialty Start Date End Date Mehreen Toussaint NP [facility] 225 [place] [address] PCP - General 03/07/23 Farzana Sabillon MD [address] [facility] 200 [place] [address] Assigned Endocrinology Provider 08/27/23 Jean Guerin MD [address] [place] [place] [address] Critical Care 06/12/24 Sobia Domingo MD [address] [place] [address] Assigned Rheumatology Provider 06/28/24 Carleen Garcia EP [facility] [address] [address] Cardiac Rehabilitation Therapist 06/30/24 Kimberlee Logan [facility] Pharmacist Pharmacist 07/01/24 documented as of this encounter
--- OUTSIDE RECORDS SUMMARY | 2024-08-12 20:15 | XMS_ITS | Encounter Summary ---
Author Organization [place] Address [address] [place] [address] Care Team Providers Care Clinical Specialty Rep Name Role Phone Mehreen Toussaint NP Primary Care Provider Farzana Sabillon MD Unavailable [phone] Jean Guerin MD Unavailable + [phone] Sobia Domingo MD Unavailable Carleen Garcia Unavailable [phone] Kimberlee Logan [facility] Unavailable Unavailable Reason for Visit * Rehab Therapy Cardiac Therapy (Routine: Next available opening) - Authorized Specialty Diagnoses / Procedures Referred By Contac t Referred To Contact CARDIAC REHAB Diagnoses Stage 4 very severe COPD by GOLD classification (H) [address] [address] Phone: tel: Referral ID Status Reason Start Date Expiration Date V isits Requested Visits Authorized [id number] Authorized 06/26/2024 05/05/2025 72 72 Encounter Details Date Type Department Care Team (Latest Contact Info) Description 07/07/2024 12:45 PM SURVEILLANCE OBSERVER - 07/07/2024 11:59 PM SURVEILLANCE OBSERVER Hospital [facility] Cardiac and Pulmonary Rehabilitation [address] [phone] Jean Guerin MD [address] [address] 1, Rh Pulmonary Rehab Discharge Disposition: Home [...] Sex Assigned at Female 04/23/2018 4:04 PM SURVEILLANCE OBSERVER Legal Sex Female 9:39 AM SURVEILLANCE OBSERVER Gender Identity Female 04/23/2018 4:04 PM SURVEILLANCE OBSERVER Sexual Orientation Straight 04/23/2018 4: 04 PM SURVEILLANCE OBSERVER documented as of this encounter Medications at [...] Hospital [address] [place] [address] Farzana Sabillon MD [address] [place] [address] 200 [place] [address] 10/06/2024 1:00 PM CDT Office Visit [facility] for [facility] and Health [address] [phone] Jean Guerin MD [address] [place] [address] 12/25/2024 10:30 AM CDT Office Visit [facility] [address]25 [facility] 200 [place] [phone] Sobia Domingo MD [address] [facility] 215 [place], [place] [address] documented as of this encounter Visit Diagnoses Not on filedocumented in this encounter Additional Health Concerns Assessment Noted Time PHQ-9 Depression Total Score: 2 09/21/19 20 7:02 AM CDT documented as of this encounter Care Teams Clinical Specialty Rep Relationship Specialty Start Date End Date Mehreen Toussaint NP [facility] 225 [place] [address] PCP - General 03/07/23 Farzana Sabillon MD [address] [facility] 200 [place] [address] Assigned Endocrinology Provider 08/27/23 Jean Guerin MD [address] [place] [address] Critical Care 06/12/24 Sobia Domingo MD [address] [place], [place] [address] Assigned Rheumatology Provider 06/28/24 Carleen Garcia EP [facility] [address] [address] Cardiac Rehabilitation Therapist 06/30/24 Kimberlee Logan [facility] Pharmacist Pharmacist 07/01/24 documented as of this encounter
--- OUTSIDE RECORDS SUMMARY | 2024-08-12 20:15 | XMS_ITS | Encounter Summary ---
Author Organization [place] Address [address] [place] [address] Care Team Providers Care Clinical Reimbursement Specialist Name Role Phone Nilton Roach PA-C Primary Care Provider Nilton Roach PA-C Unavailable [phone] Nilton Roach PA-C Unavailable [phone] Betty Gupta MD Unavailable [phone] Gray Lora MD Unavailable +[phone] Reginald Wen MD Unavailable +[phone] Nik Bryan MD Unavailable Tracie Godinez MD Unavailable + [phone] Reginald Wen MD Unavailable +[phone] Keegan Mcdonald MD Unavailable +[phone] Keegan Mcdonald MD Unavailable [phone] Jean Guerin MD Unavailable + [phone] Mehreen Toussaint NP Primary Care Provider Nilton Roach PA-C Unavailable [phone] Farzana Sabillon MD Unavailable +[phone] Saroj Romeo MD Unavailable Jean Guerin MD Unavailable [phone] Sobia Domingo MD Unavailable Carleen Garcia KP Unavailable [phone] DesmondKimberlee [facility] Unavailable Unavailable Kimberlee Logan [facility] Unavailable Unavailable Reason for Visit * Reason Comments Medication Refill Duoneb Encounter Details Date Type Department Care Team (Late Contact Info) Description 04/24/2018 Refill [facility] [address] [facility] [address] [place] [phone] Nilton Roach PA-C [address] [facility] [address] [place] [address] Medication Refill (Duoneb) Social History Tobacco Use Types Packs/Day Years Used Date Smoking Tobacco: Former Cigarettes Smokeless Tobacco: Never Comments:Occasional Alcohol Use Standard Drinks/Week Comments No 0 (1 standard drink = 0.6 oz pur e alcohol) Comments No Sex and Gender Information Value Date Recorded Sex Assigned at Female 04/23/2018 4:04 PM DEVELOPMENT AND PLANNING ENGINEER Legal Sex Female 9:39 AM DEVELOPMENT AND PLANNING ENGINEER Gender Identity Female 04/23/2018 4:04 PM DEVELOPMENT AND PLANNING ENGINEER Sexual Orientation Straight 04/23/2018 4: 04 PM DEVELOPMENT AND PLANNING ENGINEER documented as of this encounter Miscellaneous Notes * Telephone Encounter - Nilton Roach PA-C - 04/24/2018 5:21 PM DEVELOPMENT AND PLANNING ENGINEER Refills sent. Nilton Roach PA-C LOPMENT AND PLANNING ENGINEER * Telephone Encounter - Sandi Garcia RN - 04/24/2018 1:54 PM CST Duoneb Routing refill request to provider for review/approval because: Prescribed for Acute bronchitis and COPD exacerbation Sandi Garcia RN, BSN LOPMENT AND PLANNING ENGINEER documented in this encounter Plan of Treatment Upcoming Encounters Date Type Department Care Team ([facility] Contact Info) Description 10/05/2024 1:00 PM CDT Virtual Visit [facility] [address] [place] [phone] Farzana Sabillon MD [address] 200 [place] [address] 10/06/2024 1:00 PM CDT Office Visit [facility] [address] [phone] Jean Guerin MD [address] [place], [place] [address] 12/25/2024 10:30 AM CDT Office Visit [facility] [address] [facility] [address] [place] [phone] Sobia Domingo MD [address] [facility] 215 [place] [address] documented as of this encounter Visit Diagnoses Diagnosis Simple chronic bronchitis (H)- Primary Simple chronic bronchitis documented in this encounter Additional Health Concerns Infection Onset Date Last Indicated Resolved Time Rule Out COVID-19 09/12/2020 09/12/2020 09/13/2020 5:31 PM CDT Assessment Noted Time PHQ-9 Depression Total Score: 3 12/14/19 18 2:01 PM CDT documented as of this encounter Care Teams Clinical Reimbursement Specialist Relationship Specialty Start Date End Date Nilton Roach PA-C [address] [facility] 100 [place] [address] PCP - General Physician Production Mechanic 01/02/17 03/06/23 Nilton Roach PA-C [address] [place] [address] PCP - Assigned PCP 12/13/16 07/08/18 Mehreen Toussaint NP [address] [address] PCP - General 03/07/23 Nilton Roach PA-C [address] [address] Assigned PCP 12/13/16 12/21/22 [place] [address] [address] [place] [address] Assigned Rheumatology Provider 02/26/20 03/27/24 Gray Lora MD [address] [place] [address] Assigned Pulmonology Provider 02/26/20 05/27/21 Reginald Wen MD 4000 [place], [place] [address] Assigned Musculoskeletal Provider 05/29/20 07/19/20 Nik Bryan MD [address] [place] [address] Assigned Cancer Care Provider 02/26/20 11/17/21 Tracie Godinez MD [address] [address] Assigned Musculoskeletal Provider 05/22/20 05/28/20 Reginald Wen MD [address] [place], [place] [address] Assigned Musculoskeletal Provider 02/26/20 05/21/20 Keegan Mcdonald MD [address] [place] [address] Assigned Pulmonology Provider 07/09/21 09/02/21 Keegan Mcdonald MD [address] [place] [address] Assigned Pulmonology Provider 12/30/21 05/03/23 Jean Guerin MD [address] [place] [address] Assigned PCP 12/22/22 05/29/23 Nilton Roach PA-C [address] [place] [address] Assigned PCP 05/30/23 02/25/24 Farzana Sabillon MD [address] 200 [place], [place] [address] Assigned Endocrinology Provider 08/27/23 [place] [address] [facility] [place] [address] Assigned Rheumatology Provider 03/28/24 06/27/24 Jean Guerin MD [address] [place] [address] Critical Care 06/12/24 Sobia Domingo MD [address] [place] [address] Assigned Rheumatology Provider 06/28/24 Carleen Garcia EP [facility] [address] [address] Cardiac Rehabilitation Therapist 06/30/24 Kimbrelee Logan RP Pharmacist Pharmacist 07/01/24 Kimberlee Logan RP Assigned MTM Pharmacist 07/26/24 documented as of this encounter
--- OUTSIDE RECORDS SUMMARY | 2024-08-12 20:15 | XMS_ITS | Encounter Summary ---
Author Organization [place] Address [address] [place] [address] Care Team Providers Care Cell Manager Name Role Phone Nilton Roach PA-C Primary Care Provider Nilton Roach PA-C Unavailable [phone] Betty Gupta MD Unavailable [phone] Keegan Mcdonald MD Unavailable [phone] Jean Guerin MD Unavailable Mehreen Toussaint NP Primary Care Provider Nilton Roach PA-C Unavailable [phone] Farzana Sabillon MD Unavailable +[phone] Saroj Romeo MD Unavailable Jean Guerin MD Unavailable + [phone] Sobia Domingo MD Unavailable Carleen Garcia Unavailable [phone] Kimberlee Logan [facility] Unavailable Unavailable Kimberlee Logan [facility] Unavailable Unavailable Encounter Details Date Type Department Care Team (Late st Contact Info) Description 10/29/2022 MyC Medical Advice [address] [address] Faith Farnsworth, RN Social History Tobacco Use Types Packs/Day Years Used Date Smoking Tobacco: Former Cigarettes 1 40 0 06/06/1979 - 06/06/2019 Smokeless Tobacco: Never Comments:Occasional Alcohol Use Standard Drinks/Week Comments No 0 (1 standard drink = 0.6 oz pur e alcohol) PHQ-2 Answer Date Recorded PHQ-2 Score 0 10/27/2021 Comments No Sex and Gender Information Value Date Recorded Sex Assigned at Female 04/23/2018 4:04 PM CARE TRAINER Legal Sex Female 9:39 AM CARE TRAINER Gender Identity Female 04/23/2018 4:04 PM CARE TRAINER Sexual Orientation Straight 04/23/2018 4: 04 PM CARE TRAINER documented as of this encounter Plan of Treatment Upcoming Encounters Date Type Department Care Team (Late st Contact Info) Description 10/05/2024 1:00 PM CDT Virtual Visit [facility] [address] [facility] [address] [place] [phone] Farzana Sabillon MD [address] [facility] 200 [place], [place] [address] 10/06/2024 1:00 PM CDT Office Visit [facility] [address] [address] Jena Guerin MD 6402 [place] [address] 12/25/2024 10:30 AM CDT Office Visit [facility] [address] 200 [place] [phone] Sobia Domingo MD [address] [place] [address] 215 [place], [place] [phone] documented as of this encounter Visit Diagnoses Not on filedocumented in this encounter Additional Health Concerns Assessment Noted Time PHQ-9 Depression Total Score: 2 09/21/19 20 7:02 AM CDT documented as of this encounter Care Teams Cell Manager Relationship Specialty Start Date End Date Nilton Roach PA-C [address] [facility] 100 [place] [address] PCP - General Physician Block Feeder 01/02/17 03/06/23 Mehreen Toussaint NP [address] [address] PCP - General 03/07/23 Nilton Roach PA-C [address] [facility] 100 [place] [address] Assigned PCP 12/13/16 12/21/22 [place] [address] [place] [address] Assigned Rheumatology Provider 02/26/20 03/27/24 [place] [address] [facility] [address] Assigned Pulmonology Provider 12/30/21 05/03/23 Jean Guerin MD [address] [facility] [address] Assigned PCP 12/22/22 05/29/23 Nilton Roach PA-C [address] [facility] 100 [place] [address] Assigned PCP 05/30/23 02/25/24 Farzana Sabillon MD [address] 200 [place] [address] Assigned Endocrinology Provider 08/27/23 [place] [address] [place] [address] Assigned Rheumatology Provider 03/28/24 06/27/24 Jean Guerin MD [address] [place] [place] [address] Critical Care 06/12/24 Sobia Domingo MD [address] [place] [address] Assigned Rheumatology Provider 06/28/24 Carleen Garcia EP [facility] [address] [address] Cardiac Rehabilitation Therapist 06/30/24 Kimberlee Logan RP Pharmacist Pharmacist 07/01/24 Kimberlee Logan RPH Assigned MTM Pharmacist 07/26/24 documented as of this encounter
--- OUTSIDE RECORDS SUMMARY | 2024-08-12 20:15 | XMS_ITS | Encounter Summary ---
Author Organization [place] Address [address] [place] [address] Care Team Providers Care Lieutenant Governor Name Role Phone Mehreen Toussaint NP Primary Care Provider Farzana Sabillon MD Unavailable [phone] Jean Guerin MD Unavailable + [phone] Sobia Domingo MD Unavailable Carleen Garcia Unavailable [phone] Kimberlee Logan [facility] Unavailable Unavailable Kimberlee Logan [facility] Unavailable Unavailable Encounter Details Date Type Department Care Team (Latest Contact Info) Description 07/30/2024 Travel Social History Tobacco Use Types Packs/Day [...] Sex Assigned at Female 04/23/2018 4:04 PM LABORATORY CUREMAN Legal Sex Female 9:39 AM LABORATORY CUREMAN Gender Identity Female 04/23/2018 4:04 PM LABORATORY CUREMAN Sexual Orientation Straight 04/23/2018 4: 04 PM LABORATORY CUREMAN documented as of this encounter Plan of Treatment Upcoming Encounters Date Type Department Care Team (Late st Contact Info) Description 10/05/2024 1:00 PM CDT Virtual Visit [facility] [address] [place] [phone] Farzana Sabillon MD [address] [facility] 200 [place] [address] 10/06/2024 1:00 PM CDT Office Visit [facility] for [facility] [address] [phone] Jean Guerin MD [address] [place] [address] 12/25/2024 10:30 AM CDT Office Visit [address] [phone] Sobia Domingo MD [address] [place], [place] [address]E [facility] 215 [place], [place] [address] documented as of this encounter Visit Diagnoses Not on filedocumented in this encounter Additional Health Concerns Assessment Noted Time PHQ-9 Depression Total Score: 2 09/21/19 20 7:02 AM CDT documented as of this encounter Care Teams Lieutenant Governor Relationship Specialty Start Date End Date Mehreen Toussaint NP [address] [address] PCP - General 03/07/23 Farzana Sabillon MD [address] [place] [address] Assigned Endocrinology Provider 08/27/23 Jean Guerin MD [address] [place] [address] Critical Care 06/12/24 Sobia Domingo MD [address] [facility] [address] [address] Assigned Rheumatology Provider 06/28/24 Carleen Garcia EP [facility] [address] [place] [address] Cardiac Rehabilitation Therapist 06/30/24 Kimberlee Logan RP Pharmacist Pharmacist 07/01/24 Kimberlee Logan RPH Assigned MTM Pharmacist 07/26/24 documented as of this encounter
--- OUTSIDE RECORDS SUMMARY | 2024-08-12 20:15 | XMS_ITS | Encounter Summary ---
Author Organization [place] Address [address] [place] [address] Care Team Providers Care Bench Lathe Operator Name Role Phone Mehreen Toussaint NP Primary Care Provider Farzana Sabillon MD Unavailable [phone] Jena Guerin MD Unavailable + [phone] Sobia Domingo MD Unavailable Carleen Garcia Unavailable [phone] Kimberlee Logan [facility] Unavailable Unavailable Encounter Details Date Type Department Care Team (Latest Contact Info) Description 07/07/2024 Travel Social History Tobacco Use Types Packs/Day [...] Sex Assigned at Female 04/23/2018 4:04 PM JAMMER HOOKER Legal Sex Female 9:39 AM JAMMER HOOKER Gender Identity Female 04/23/2018 4:04 PM JAMMER HOOKER Sexual Orientation Straight 04/23/2018 4: 04 PM JAMMER HOOKER documented as of this encounter Plan of Treatment Upcoming Encounters Date Type Department Care Team ( st Contact Info) Description 10/05/2024 1:00 PM CDT Virtual Visit [facility] [address] [place] [phone] Farzana Sabillon MD [address] 200 [place] [address] 10/06/2024 1:00 PM CDT Office Visit [facility] for Lung Science and Health [address] [phone] Jean Guerin MD [address] [place] [address] 12/25/2024 10:30 AM CDT Office Visit [address] [phone] Sobia Domingo MD [address] [address] documented as of this encounter Visit Diagnoses Not on filedocumented in this encounter Additional Health Concerns Assessment Noted Time PHQ-9 Depression Total Score: 2 09/21/19 20 7:02 AM CDT documented as of this encounter Care Teams Bench Lathe Operator Relationship Specialty Start Date End Date Mehreen Toussaint NP [address] [address] PCP - General 03/07/23 Farzana Sabillon MD [address] 200 [place] [address] Assigned Endocrinology Provider 08/27/23 Jean Guerin MD [address] [place] [address] Critical Care 06/12/24 Sobia Domingo MD [address] [address] Assigned Rheumatology Provider 06/28/24 Carleen Garcia EP [facility] 6401 [facility] [place], [place] [address] Cardiac Rehabilitation Therapist 06/30/24 Kimberlee Logan [facility] Pharmacist Pharmacist 07/01/24 documented as of this encounter
--- OUTSIDE RECORDS SUMMARY | 2024-08-12 20:15 | XMS_ITS | Encounter Summary ---
Author Organization [facility] Address [address] [place] [address]. [place] [address] Care Team Providers Care Liner Machine Operator Name Role Phone Nilton Roach PA-C Primary Care Provider Nilton Roach PA-C Unavailable [phone] Betty Gupta MD Unavailable Keegan Mcdonald MD Unavailable Jean Guerin MD Unavailable Mehreen Toussaint NP Primary Care Provider [phone] Nilton Roach PA-C Unavailable Farzana Sabillon MD Unavailable [phone] Saroj Romeo MD Unavailable Jean Guerin MD Unavailable Sobia Domingo MD Unavailable Carleen Garcia Unavailable [phone] Kimberlee Logan [facility] Unavailable Unavailable Kimberlee Logan RP Unavailable Unavailable Encounter Details Date Type Department Care Team (Late st Contact Info) Description 05/25/2022 MyC Medical Advice [facility] [address] [place] [address] Carol Lloyd Social History Tobacco Use Types [...] Sex Assigned at Female 04/23/2018 4:04 PM MANAGER REPORT Legal Sex Female 9:39 AM MANAGER REPORT Gender Identity Female 04/23/2018 4:04 PM MANAGER REPORT Sexual Orientation Straight 04/23/2018 4: 04 PM MANAGER REPORT COVID-19 Exposure Response Date Recorded In the last 10 days, have yo u been in contact with someone who was confirmed or suspected to have Coronavirus/COVID-19? No / Unsure 05/02/2022 10:29 AM MANAGER REPORT documented as of this encounter Miscellaneous Notes * Telephone Encounter - Corrie Guidry RMA - 05/30/2022 3:48 PM CST [email or web address] [place] form completed and faxed. GRETCHEN Fraser Email: [email or web address] - Rheumatology GER REPORT documented in this encounter Plan of Treatment Upcoming Encounters Date Type Department Care Team (Late st Contact Info) Description 10/05/2024 1:00 PM CDT Virtual Visit [facility] [address] [place] [address] Farzana Sabillon MD [address] [place], [place] [address] 10/06/2024 1:00 PM CDT Office Visit [facility] [address] [address] Jean Guerin MD [address] [address] 12/25/2024 10:30 AM CDT Office Visit [facility] [place] [address] [place] [address] [address] [place] [phone] Sobia Domingo MD [address] [place] [address] documented as of this encounter Visit Diagnoses Not on filedocumented in this encounter Additional Health Concerns Assessment Noted Time PHQ-9 Depression Total Score: 2 09/21/19 20 7:02 AM CDT documented as of this encounter Care Teams Liner Machine Operator Relationship Specialty Start Date End Date Nilton Roach PA-C [address] [address] PCP - General Physician A And P Technician 01/02/17 03/06/23 Mehreen Toussaint NP [address] [address] PCP - General 03/07/23 Nilton Roach PA-C [address] [address] Assigned PCP 12/13/16 12/21/22 [place] [address] [place] [address] Assigned Rheumatology Provider 02/26/20 03/27/24 [place] [address] [place] [address] Assigned Pulmonology Provider 12/30/21 05/03/23 Jean Guerin MD [address] [place] [address] Assigned PCP 12/22/22 05/29/23 Nilton Roach PA-C [address] [place] [address] Assigned PCP 05/30/23 02/25/24 Farzana Sabillon MD [address] [place] [address] Assigned Endocrinology Provider 08/27/23 [place] [address] [place] [address] Assigned Rheumatology Provider 03/28/24 06/27/24 Jean Guerin MD [address] [place] [address] Critical Care 06/12/24 Sobia Domingo MD [address] [place] [address] Assigned Rheumatology Provider 06/28/24 Carleen Garcia [facility] [address] [place] [address] Cardiac Rehabilitation Therapist 06/30/24 Kimberlee Logan RP Pharmacist Pharmacist 07/01/24 Kimberlee Logan RPH Assigned MTM Pharmacist 07/26/24 documented as of this encounter
--- OUTSIDE RECORDS SUMMARY | 2024-08-12 20:15 | XMS_ITS | Encounter Summary ---
Author Organization [facility] Address [address] [place] [address] Care Team Providers Care Biology Faculty Member Name Role Phone Mehreen Toussaint NP Primary Care Provider Farzana Sabillon MD Unavailable [phone] Jean Guerin MD Unavailable + [phone] Sobia Domingo MD Unavailable Carleen Garcia Unavailable [phone] DesmondKimberlee balbuena [facility] Unavailable Unavailable DesmondKimberlee [facility] Unavailable Unavailable Reason for Visit * Rehab Therapy Cardiac Therapy (Routine: Next available opening) - Authorized Specialty Diagnoses / Procedures Referred By Contac t Referred To Contact CARDIAC REHAB Diagnoses Stage 4 very severe COPD by GOLD classification (H) [facility] [address] [place] [phone] Phone: tel: Referral ID Status Reason Start Date Expiration Date V isits Requested Visits Authorized [id number] Authorized 06/26/2024 05/05/2025 72 72 Encounter Details Date Type Department Care Team (Latest Contact Info) Description 07/30/2024 10:29 AM CDT - 07/30/2024 11:59 PM CDT Hospital Encounter [facility] [address] [place] [address] Jean Guerin MD [address] [address] 1, Rh Pulmonary Rehab Discharge Disposition: Home [...] Sex Assigned at Female 04/23/2018 4:04 PM SEAT TRIMMER Legal Sex Female 9:39 AM SEAT TRIMMER Gender Identity Female 04/23/2018 4:04 PM SEAT TRIMMER Sexual Orientation Straight 04/23/2018 4: 04 PM SEAT TRIMMER documented as of this encounter Medications at Time of Discharge albuterol (PROAIR HFA/PROVENTIL HFA/VENTOLIN HFA) 108 (90 Base) MCG/ACT inhalerIndications: Simple chronic bronchitis (H) INHALE 2 PUFFS BY MOUTH EVERY 6 HOURS NEEDED FOR WHEEZING OR SHORTNESS OF BREATH 18 g 5 5 azithromycin (ZITHROMAX) 250 MG tabletIndications:Anay ramos 4 very severe COPD by GOLD classification [...] Hospital [address] [place] [address] Farzana Sabillon MD [address] [facility] [address] [place] [address] 10/06/2024 1:00 PM CDT Office Visit [facility] [address] [address] Jean Guerin MD [address] [place] [address] 12/25/2024 10:30 AM CDT Office Visit [facility] [place] [address] [facility] [address] [place] [phone] Sobia Domingo MD [address] [place], [place] [address] documented as of this encounter Visit Diagnoses Not on filedocumented in this encounter Additional Health Concerns Assessment Noted Time PHQ-9 Depression Total Score: 2 09/21/19 20 7:02 AM CDT documented as of this encounter Care Teams Biology Faculty Member Relationship Specialty Start Date End Date Mehreen Toussaint NP [facility] [address] [place] [address] PCP - General 03/07/23 Farzana Sabillon MD [address] [facility] [address] [place] [address] Assigned Endocrinology Provider 08/27/23 Jean Guerin MD [address] [place] [address] Critical Care 06/12/24 Sobia Domingo MD [address] [place] [address] Assigned Rheumatology Provider 06/28/24 Carleen Garcia EP [facility] [address] [place] [address] Cardiac Rehabilitation Therapist 06/30/24 Kimberlee Logan RPH Pharmacist Pharmacist 07/01/24 Kimberlee Logan RPH Assigned MTM Pharmacist 07/26/24 documented as of this encounter
--- OUTSIDE RECORDS SUMMARY | 2024-08-12 20:15 | XMS_ITS | Encounter Summary ---
Author Organization [facility] Address [address] [place] [address] Care Team Providers Care Customer Records Division Supervisor Name Role Phone Mehreen Toussaint NP Primary Care Provider Farzana Sabillon MD Unavailable [phone] Jean Guerin MD Unavailable + [phone] Sobia Domingo MD Unavailable Carleen Garcia Unavailable [phone] Kimberlee Logan [facility] Unavailable Unavailable Encounter Details Date Type Department Care Team (Latest Contact Info) Description 07/14/2024 Travel Social History Tobacco Use Types Packs/Day [...] Sex Assigned at Female 04/23/2018 4:04 PM NUCLEAR FUELS RECLAMATION ENGINEER Legal Sex Female 9:39 AM NUCLEAR FUELS RECLAMATION ENGINEER Gender Identity Female 04/23/2018 4:04 PM NUCLEAR FUELS RECLAMATION ENGINEER Sexual Orientation Straight 04/23/2018 4: 04 PM NUCLEAR FUELS RECLAMATION ENGINEER documented as of this encounter Plan of Treatment Upcoming Encounters Date Type Department Care Team ( st Contact Info) Description 10/05/2024 1:00 PM CDT Virtual Visit [facility] [address] [place] [phone] Farzana Sabillon MD [address] [place] [address] 10/06/2024 1:00 PM CDT Office Visit [facility] [address] [phone] Jean Guerin MD [address] [place] [address] 12/25/2024 10:30 AM CDT Office Visit [address] [phone] Sobia Domingo MD [address] [address] documented as of this encounter Visit Diagnoses Not on filedocumented in this encounter Additional Health Concerns Assessment Noted Time PHQ-9 Depression Total Score: 2 09/21/19 20 7:02 AM CDT documented as of this encounter Care Teams Customer Records Division Supervisor Relationship Specialty Start Date End Date Mehreen Toussaint NP [address] [address] PCP - General 03/07/23 Farzana Sabillon MD [address] [place] [address] Assigned Endocrinology Provider 08/27/23 Jean Guerin MD [address] [place] [address] Critical Care 06/12/24 Sobia Domingo MD [address] [facility] [address] [address] Assigned Rheumatology Provider 06/28/24 Carleen Garcia EP [facility] [address] [facility] [place], [place] [address] Cardiac Rehabilitation Therapist 06/30/24 Kimberlee Logan [facility] Pharmacist Pharmacist 07/01/24 documented as of this encounter
--- OUTSIDE RECORDS SUMMARY | 2024-08-12 20:15 | XMS_ITS | Clinical Summary ---
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 Active albuterol, conc: 2.5mg/3mL, (PROVENTIL, VENTOLIN) 2.5 mg /3 mL (0.083 %) Inhl nebulizer solutionIndicatio ns:COPD with exacerbation (HCC) Inhale 3 mL (2.5 mg) every 6 (six) hours as needed for Wheezing. 1 Box 7 Active simvastatin (ZOCOR) 10 mg oral tablet Take 10 mg by mouth at bedtime. Active fluticasone 250 mcg-salmeterol 50 mcg (ADVAIR) 250-50 mcg/dose Inhl DsDv diskus inhaler Inhale 1 puff twice a day. Active albuterol-ipratro pium, conc: 3-0.5mg/3mL, (DUO-NEB) Inhl nebulizer solution Nebulize 1 ampule every 4 (four) hours as needed. Active rivaroxaban (XARELTO) 20 mg oral tablet Take 20 mg by mouth once a day with evening meal. Active hydroxychloroquin e (PLAQUENIL) 200 mg oral tablet Take 200 mg by mouth once daily. Active tiZANidine (ZANAFLEX) 2 mg oral tablet Take 2-4 mg by mouth three times a day as needed. Active predniSONE (DELTASONE) 10 mg oral Tab Take 4 tabs daily x 3 days,then 3 tabs daily x 3 days,then 2 tabs daily x 3 days,then 1 tab daily x 3 days,then one half-tab daily x 2 days. 31 tablet 0 Active Active Problems Problem Noted Date Diagnosed Date Respiratory failure 06/27/2019 Social History Tobacco Use Types Packs/Day Years Used Date Smoking Tobacco: Former Smokeless Tobacco: Never Alcohol Use Standard Drinks/Week Comments Yes 0 (1 standard drink = 0.6 oz pur e alcohol) AUDIT-C Answer Date Recorded Q1: How often do you have a drink containing alc ohol? Monthly or less 06/27/2019 Average Number of Drinks Not on file 020 Frequency of Binge Drinking Not on file 06/07 Comments Unknown Sex and Gender Information Value Date Recorded Sex Assigned at Not on file Legal Sex Female 3:04 PM CDT Gender Identity Not on file Sexual Orientation Not on file Last Filed Vital Signs Vital Sign Reading Time Taken Comments Blood Pressure 131/80 06/30/2019 2:47 PM INDUSTRIAL RELATIONS REPRESENTATIVE Pulse 102 06/30/2019 2:49 PM INDUSTRIAL RELATIONS REPRESENTATIVE Temperature 36.7 C (98 F) 06/30/2019 2:49 PM INDUSTRIAL RELATIONS REPRESENTATIVE Respiratory Rate 16 06/30/2019 2:49 PM INDUSTRIAL RELATIONS REPRESENTATIVE Oxygen Saturation 91% 06/30/2019 2:49 PM INDUSTRIAL RELATIONS REPRESENTATIVE Inhaled Oxygen Concentration - - Weight 44.1 kg (97 lb 4.8 oz) 06/30/2019 6:00 AM INDUSTRIAL RELATIONS REPRESENTATIVE Height 152.4 cm (5') 06/27/2019 5:45 AM INDUSTRIAL RELATIONS REPRESENTATIVE Body Mass Index 19 06/27/2019 5:45 AM INDUSTRIAL RELATIONS REPRESENTATIVE Plan of Treatment Health Maintenance Due Date Last Done Comments Colonoscopy 1960 Hepatitis C Screening 1960 Mammogram Screening 1960 Pap Smear 1960 Anxiety Screening (ANDRÉS-2) 1961 Depression Assessment (PHQ-2) 1961 Zoster Vaccine (1 of 2) 2010 Pneumococcal 50+ Years (2 of 2 - PCV) 05/09/201908/2018, 05/12/2012 Pneumococcal Vaccine (2 of 2 - PCV) 05/09/201905/09, 05/12/2012 RSV Vaccines (1 - Risk 60-74 years 1-dose series) 2020 Yearly Review of HCD 06/26/2020 06/27/2019 Adult Tetanus Booster 07/16/2022 07/16/2012 COVID-19 Vaccine ( - 2023- season) 2024 Influenza Vaccine (Season Ended) 2025 Insurance [facility] [employer] [facility] Advance Directives For more information, please contact: [phone] * Full Code (Latest Code Status on File) Date Activated Date Inactivated Comments 06/27/2019 6:20 AM 06/30/2019 10:48 PM Question Answer Comments How was code status determined? 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
--- OUTSIDE RECORDS SUMMARY | 2024-08-12 20:15 | XMS_ITS | Clinical Summary ---
Author Organization [facility] Address [address] [place] [id number] Care Team Providers [employer] Clerk Name Role Phone Mehreen Toussaint NP Primary Care Provider Farzana Sabillon MD Unavailable [phone] Jean Guerin MD Unavailable + [phone] Sobia Domingo MD Unavailable Carleen Garcia Unavailable [phone] DesmondKimberlee balbuena [facility] Unavailable Unavailable DesmondKimberlee [facility] Unavailable Unavailable Allergies Active Allergy Reactions Criticality Noted Date Comments Acetaminophen Other (See Comments) 05/07/2012 Patient states she gets very itchy and will not tolerate any acetaminophen product. Warfarin Hives,Itching 12/11/2017 No Clinical Screening - See Comments 05/19/[address] scan- caused itching reaction. Patient cannot recall what this was. Nelida Aragon LPN on 05/19/2019 at 2:53 PM Medications MUCINEX 600 MG 12 hr tablet TAKE 2 TABLETS BY MOUTH TWICE A DAY FOR 20 DAYS. 0 02/21/20 17 Active rivaroxaban ANTICOAGULANT (XARELTO) 20 MG TABS tabletIndications: Antiphospholipid antibody syndrome,Embolism and thrombosis (H) Take 1 tablet (20 mg) by mouth daily (with dinner) 30 tablet 11 06/14/19 21 Active triamcinolone (KENALOG) 0.1 % external creamIndications:E czema, unspecified type Apply topically 2 times daily For up to 2 weeks at a time 45 g 1 08/06/19 21 Active tiZANidine (ZANAFLEX) 2 MG tabletIndications: Chronic bilateral low back pain with bilateral sciatica TAKE 1-2 TABLETS (2-4 MG) BY MOUTH 3 TIMES DAILY NEEDED FOR MUSCLE SPASMS 180 tablet 09/13/19 21 Active tiZANidine (ZANAFLEX) 4 MG capsuleIndications :Chronic bilateral low back pain with bilateral sciatica Take 1-2 capsules (4-8 mg) by mouth nightly as needed for muscle spasms 180 capsule 1 01/27/20 21 Active diphenhydrAMINE (BENADRYL) 25 MG capsule Take 25 mg by mouth every 6 hours as needed for itching or allergies Takes at HS for itching Active mometasone-formote rol (DULERA) 200-5 MCG/ACT inhalerIndications :Stage 4 very severe COPD by GOLD classification (H) Inhale 2 puffs into the lungs 2 times daily. 13 g 06/17/19 25 Active tiotropium (SPIRIVA) 18 MCG inhaled capsuleIndications :Stage 4 very severe COPD by GOLD classification (H) Inhale 1 capsule (18 mcg) into the lungs daily. 30 capsule 06/17/19 25 Active albuterol (PROAIR HFA/PROVENTIL HFA/VENTOLIN HFA) 108 (90 Base) MCG/ACT inhalerIndications :Simple chronic bronchitis (H) INHALE 2 PUFFS BY MOUTH EVERY 6 HOURS NEEDED FOR WHEEZING OR SHORTNESS OF BREATH 18 g 5 06/17/19 25 Active ipratropium - albuterol 0.5 mg/2.5 mg/3 mL (DUONEB) 0.5-2.5 (3) MG/3ML neb solutionIndication s:Simple chronic bronchitis (H) INHALE 1 VIAL VIA NEBULIZER FOUR TIMES DAILY 1080 mL 06/17/19 25 Active azithromycin (ZITHROMAX) 250 MG tabletIndications: Stage 4 very severe COPD by GOLD classification (H) Take 1 tablet (250 mg) by mouth three times a week. 36 tablet 06/17/19 25 Active belimumab (BENLYSTA) subcutaneous injection (prefilled autoinjector)Indic ations:Systemic lupus erythematosus, unspecified SLE type, unspecified organ involvement status (H) Inject 1 mL (200 mg) subcutaneously every 7 days. Hold for signs of infection and seek medical attention. 4 mL 3 07/01/19 25 Active TURMERIC PO Take by mouth daily. Active Active Problems Problem Noted Date Diagnosed Date Cervical cancer screening 06/09/2019 Overview (06/09/2019): Dx of Lupus, on immunosuppressant medication 05/29/2019 NIL Pap, Neg HPV. Plan cotest in 3 years. Source for guideline: Journal of Lower Genital Tract Disease, Vol 23, # 2, August 2018 Closed fracture of proximal end of right humerus 08/07/2018 DDD (degenerative disc disease), lumbar 04/05/20 18 Long-term (current) use of anticoagulants [Z79.0 1] 11/22/2017 Embolism and thrombosis (H) [I74.9] 11/22/2017 Antiphospholipid antibody syndrome 11/22/2017 Age-related osteoporosis wit [...] Encounters Date Type Department Care Team Description 08/06/2024 Travel 07/30/2024 10:29 AM CDT - 07/30/2024 11:59 PM CDT Hospital Encounter [facility] [address] [place] [phone] Jean Guerin MD 1, Pulmonary Rehab Discharge Disposition: Home or Self Care 07/30/2024 Travel 07/28/2024 10:18 AM CDT - 07/28/2024 11:59 PM CDT Hospital Encounter [facility] [address] [place] [phone] Jean Guerin MD 1, Rh Pulmonary Rehab Discharge Disposition: Home or Self Care 07/28/2024 Travel 07/27/2024 Travel 07/14/2024 10:17 AM CDT - 07/14/2024 11:59 PM CDT Hospital Encounter [facility] [address] [place] [phone] Jena Guerin MD 1, Rh Pulmonary Rehab Discharge Disposition: Home or Self Care 07/14/2024 Travel 07/10/2024 Travel 07/07/2024 12:45 PM INCLINED RAILWAY OPERATOR - 07/07/2024 11:59 PM INCLINED RAILWAY OPERATOR Hospital Encounter [facility] Card[facility] Pulmonary Rehabilitation [address] [place] [phone] Jean Guerin MD 1, Rh Pulmonary Rehab Discharge Disposition: Home or Self Care 07/07/2024 Travel 07/06/2024 MyC Medical Advice [facility] [address] [place] [phone] Carol Lloyd 07/06/2024 Travel 07/02/[address] [facility] [address] [phone] Sobia Domingo MD Prior Auth - Medication (Benlysta) 07/01/2024 2:30 PM INCLINED RAILWAY OPERATOR Virtual Visit [facility] Rheumatology [address] [place] [address] Sobia Domingo MD DesmondKimberlee balbuena M, [facility] Systemic lupus erythematosus, unspecified SLE type, unspecified organ involvement status (H) (Primary Dx) 06/30/2024 1:59 PM INCLINED RAILWAY OPERATOR - 06/30/2024 11:59 PM INCLINED RAILWAY OPERATOR Hospital Encounter [facility] [address] [place] [phone] Jean Guerin MD 2, Rh Pulmonary Rehab Discharge Disposition: Home or Self Care 06/30/2024 Travel 06/29/2024 Travel 06/26/2024 11:30 AM INCLINED RAILWAY OPERATOR Lab [facility] [address] [place] [phone] Systemic lupus erythematosus, organ or system involvement unspecified (H); Antiphospholipid syndrome; Long-term use of high-risk medication; Hypocomplementemia (H) 06/26/2024 10:30 AM INCLINED RAILWAY OPERATOR Office Visit [facility] Special[facility] [address] [place] [phone] Sobia Domingo MD Systemic lupus erythematosus, organ or system involvement unspecified (H) (Primary Dx); Antiphospholipid syndrome; Long-term use of high-risk medication; Hypocomplementemia (H) 06/26/2024 Travel 06/24/[address] [facility] [address] [phone] Saroj Romeo MD Appointment 06/17/2024 8:30 AM INCLINED RAILWAY OPERATOR Office Visit [facility] [address] [phone] Jean Guerin MD Stage 4 very severe COPD by GOLD classification (H); Simple chronic bronchitis (H) 06/17/2024 Travel 06/16/2024 Travel 06/08/2024 Travel from Last 3 Months Immunizations Name Administration Dates Next Due COVID-19 Bivalent 18+ (Moderna) 05/02/2022 COVID-19 Monovalent 18+ (Moderna) 01/10/2021,02/2021,07/16/2020 COVID-19 Monovalent Booster 18+ (Moderna) 06/30/2021 Influenza (IIV3) PF 05/12/2012 Influenza Vaccine 18-64 (Flublok) 2020,02/01/2020,05/29/2019,2018 Influenza Vaccine 65+ (Fluzone HD) 02/20/2022 Pneumococcal 20 valent Conju gate (Prevnar 20) 02/20/2022 Pneumococcal 23 valent 05/09/2018,05/12/2012 TDAP Vaccine (Adacel) 07/16/2012 Zoster recombinant adjuvante d (Shingrix) 03/10/2021,12/09/2020 Family History Medical History Relation Comments Coronary Artery Disease Brother Diabetes Type 2 Father Kidney Disease Father Diabetes Mother Heart Failure Mother Leukemia Mother Relation Status Comments Brother Father Mother Social History Tobacco Use Types Packs/Day Years Used Date Smoking Tobacco: Former Cigarettes 1.5 38.1 0 05/08/1974 - 06/06/2012 Smokeless Tobacco: Never Tobacco Cessation:Counseling Given: Not Answered Comments:Occasional Alcohol Use Standard Drinks/Week Comments No 0 (1 standard drink = 0.6 oz pur e alcohol) PHQ-2 Answer Date Recorded PHQ-2 Score 1 06/17/2024 Adolescent Education Answer Date Record ed Getting School Help Needed Not on file 01/25 Comments No Sex and Gender Information Value Date Recorded Sex Assigned at Female 04/23/2018 4:04 PM INCLINED RAILWAY OPERATOR Legal Sex Female 9:39 AM INCLINED RAILWAY OPERATOR Gender Identity Female 04/23/2018 4:04 PM INCLINED RAILWAY OPERATOR Sexual Orientation Straight 04/23/2018 4: 04 PM INCLINED RAILWAY OPERATOR Last Filed Vital Signs Vital Sign Reading Time Taken Comments Blood Pressure 146/88 06/26/2024 10:05 AM INCLINED RAILWAY OPERATOR Pulse 114 06/26/2024 10:04 AM INCLINED RAILWAY OPERATOR Temperature 37.1 C (98.7 F) 10/22/2023 2:00 PM CDT Respiratory Rate 24 06/26/2024 10:04 AM INCLINED RAILWAY OPERATOR Oxygen Saturation 96% 06/26/2024 10:04 AM INCLINED RAILWAY OPERATOR Inhaled Oxygen Concentration - - Weight 52.6 kg (116 lb) 06/26/2024 10:04 AM INCLINED RAILWAY OPERATOR Height 152.4 cm (5') 10/22/2023 2:00 PM CDT Body Mass Index 22.65 10/22/2023 2:00 PM CDT Plan of Treatment Upcoming Encounters Date Type Department Care Team (Late st Contact Info) Description 10/05/2024 1:00 PM CDT Virtual Visit [facility] [address] [place] [phone] Farzana Sabillon MD [address] [place] [address] 10/06/2024 1:00 PM CDT Office Visit [facility] [place] [address] [place] [phone] Jean Guerin MD [address] [place] [phone] 12/25/2024 10:30 AM CDT Office Visit [facility] [place] [address] [facility] [address] [place] [phone] Sobia Domingo MD [address] [facility] [address] [place] [address] Health Maintenance Due Date Last Done Comments ADVANCE CARE PLANNING 1960 COPD ACTION PLAN 1960 CT COLONOGRAPHY 1960 FLEX SIG 1960 URINE DRUG SCREEN 1960 sDNA (Cologuard) 1960 MENINGITIS IMMUNIZATION (1 - Risk 2-dose series) 1962 HIV SCREENING 1975 MEDICARE ANNUAL WELLNESS VISIT 04/22/2020 04/22/2019, 04/04/2018 RSV VACCINE (1 - Risk 60-74 years 1-dose series) 2020 FIT 06/26/2020 06/26/2019 ANNUAL REVIEW OF HM ORDERS 01/26/2022 01/26/2021 HPV TEST 05/29/2022 05/29/2019 PAP 05/29/2022 05/29/2019 MAMMO SCREENING 08/18/2022 08/18/2020, 12/0 11/2017, 05/06/2014, Additional history exists DIABETES SCREENING 08/06/2023 08/05/2020, 0 08/05/2020, 07/13/2019, Additional history exists COVID-19 Vaccine ( season) 2024 03/15/2023, 05/02/2022, 06/30/2021, Additional history exists LUNG CANCER SCREENING 12/23/2024 12/24/2023 , 12/20/2022, 06/13/2021, Additional history exists COLONOSCOPY 12/30/2024 12/31/2019, 12/05, 02/25/2006 COLORECTAL CANCER SCREENING 12/30/2024 LIPID 08/05/2025 08/05/2020, 04/05, 04/04/2018, Additional history exists DTAP/TDAP/TD IMMUNIZATION (3 - Td or Tdap) 06/23/2034 06/23/2024, 07/16/2012 HEPATITIS C SCREENING Completed 04/22/2019 ZOSTER IMMUNIZATION Completed 03/10/2021, Pneumococcal Vaccine: 50+ Years Completed 02/20/2022, 05/09/2018, 05/12/2012 SPIROMETRY Completed 06/10/2023, 09/2023, 06/30/2021, Additional history exists INFLUENZA VACCINE Completed 02/06/2024, , 02/20/2022, Additional history exists PHQ-2 (once per calendar year) Completed 06/17/2024, 08/13/2023, 03/07/2023, Additional history exists HPV IMMUNIZATION Aged Out No longer e ligible based on patient's age to complete this topic Procedures Procedure Name Priority Date/Time Associated Diagnosis Comments PROTEIN RANDOM URINE Routine 06/26/2024 11:32 AM INCLINED RAILWAY OPERATOR Systemic lupus erythematosus, organ or system involvement unspecified (H) Antiphospholipid syndrome Long-term use of high-risk medication Hypocomplementemia (H) CBC WITH PLATELETS & DIFFERENTIAL Routine 06/26/2024 11:28 AM INCLINED RAILWAY OPERATOR Systemic lupus erythematosus, organ or system involvement unspecified (H) Antiphospholipid syndrome Long-term use of high-risk medication Hypocomplementemia (H) CBC WITH PLATELETS AND DIFFERENTIAL Routine 06/26/2024 11:28 AM INCLINED RAILWAY OPERATOR Systemic lupus erythematosus, organ or system involvement unspecified (H) Antiphospholipid syndrome Long-term use of high-risk medication Hypocomplementemia (H) DNA DOUBLE STRANDED ANTIBODIES Routine 06/26/2024 11:28 AM INCLINED RAILWAY OPERATOR Systemic lupus erythematosus, organ or system involvement unspecified (H) Antiphospholipid syndrome Long-term use of high-risk medication Hypocomplementemia (H) COMPLEMENT C4 Routine 06/26/2024 11:28 AM INCLINED RAILWAY OPERATOR Systemic lupus erythematosus, organ or system involvement unspecified (H) Antiphospholipid syndrome Long-term use of high-risk medication Hypocomplementemia (H) COMPLEMENT C3 Routine 06/26/2024 11:28 AM INCLINED RAILWAY OPERATOR Systemic lupus erythematosus, organ or system involvement unspecified (H) Antiphospholipid syndrome Long-term use of high-risk medication Hypocomplementemia (H) CRP INFLAMMATION Routine 06/26/2024 11:2 8 AM INCLINED RAILWAY OPERATOR Systemic lupus erythematosus, organ or system involvement unspecified (H) Antiphospholipid syndrome Long-term use of high-risk medication Hypocomplementemia (H) ALT Routine 06/26/2024 11:28 AM INCLINED RAILWAY OPERATOR Systemic lupus erythematosus, organ or system involvement unspecified (H) Antiphospholipid syndrome Long-term use of high-risk medication Hypocomplementemia (H) AST Routine 06/26/2024 11:28 AM INCLINED RAILWAY OPERATOR Systemic lupus erythematosus, organ or system involvement unspecified (H) Antiphospholipid syndrome Long-term use of high-risk medication Hypocomplementemia (H) CREATININE Routine 06/26/2024 11:28 AM INCLINED RAILWAY OPERATOR Systemic lupus erythematosus, organ or system involvement unspecified (H) Antiphospholipid syndrome Long-term use of high-risk medication Hypocomplementemia (H) CT CHEST LUNG CANCER SCREEN LOW DOSE WITHOUT Routine 12/24/2023 11:44 AM CDT Personal history of tobacco use PFT GENERAL LAB TESTING Routine 06/10/2023 2:03 PM INCLINED RAILWAY OPERATOR Stage 4 very severe COPD by GOLD classification (H) MA SCREENING BILATERAL W/ GASTON Routine 08/18/2020 9:45 AM CDT Visit for screening mammogram BASIC METABOLIC PANEL Routine 08/05/2020 8:55 AM CDT Stage 4 very severe COPD by GOLD classification (H) LIPID REFLEX TO DIRECT LDL PANEL Routine 08/05/2020 8:55 AM CDT Hyperlipidemia LDL goal <130 COLONOSCOPY Routine 12/31/2019 9:00 AM CDT FECAL COLORECTAL CANCER SCREEN FIT Routine 06/26/2019 7:00 AM INCLINED RAILWAY OPERATOR Colon cancer screening HPV HIGH RISK TYPES DNA CERVICAL Routine 05/29/2019 3:28 PM INCLINED RAILWAY OPERATOR Screening for malignant neoplasm of cervix PAP IMAGED THIN LAYER SCREEN Routine 05/29/2019 3:17 PM INCLINED RAILWAY OPERATOR Screening for malignant neoplasm of cervix HEPATITIS C SCREEN REFLEX TO HCV RNA QUANT AND GENOTYPE Routine 04/22/2019 4:32 PM INCLINED RAILWAY OPERATOR Need for hepatitis C screening test from Last 3 Months or Most Recently Relevant to Health Maintenance Results * Protein random urine (06/26/2024 11:32 AM INCLINED RAILWAY OPERATOR) Total Protein Urine mg/dL 6.7 mg/dL 06/26/2024 9:01 PM INCLINED RAILWAY OPERATOR [facility] Comment:The reference ranges have not been established in urine protein. The results should be integrated into the clinical context for interpretation. Total Protein Urine mg/mg Creat 0.17 0.00 - 0.20 mg/mg Cr 06/26/2024 9:01 PM INCLINED RAILWAY OPERATOR [facility] Creatinine Urine mg/dL 40.1 mg/dL 06/26/2024 9:01 PM INCLINED RAILWAY OPERATOR [facility] Comment:The reference ranges have not been established in urine creatinine. The results should be integrated into the clinical context for interpretation. Urine URINE SPECIMEN OBTAINED BY CLEAN CATCH PROCEDURE / Unknown Non-blood Collection / Unknown 06/26/2024 11:32 AM INCLINED RAILWAY OPERATOR 06/26/2024 11:32 AM INCLINED RAILWAY OPERATOR us Sobia Domingo MD LAB - URINE ORDERABLES Final Res ult [facility] [address] [facility], [address] [place] [address] * CBC with platelets and differential (06/26/2024 11:28 AM INCLINED RAILWAY OPERATOR) WBC Count 8.2 4.0 - 11.0 10e3/uL 06/26/2024 11:31 AM INCLINED RAILWAY OPERATOR [facility] RBC Count 4.36 3.80 - 5.20 10e6/uL 06/26/2024 11:31 AM INCLINED RAILWAY OPERATOR [facility] Hemoglobin 12.6 11.7 - 15.7 g/dL 06/26/2024 11:31 AM INCLINED RAILWAY OPERATOR [facility] Hematocrit 39.7 35.0 - 47.0 % 06/26/2024 11:31 AM INCLINED RAILWAY OPERATOR [facility] MCV 91 78 - 100 fL 06/26/2024 11:31 AM INCLINED RAILWAY OPERATOR [facility] MCH 28.9 26.5 - 33.0 pg 06/26/2024 11:31 AM INCLINED RAILWAY OPERATOR [facility] MCHC 31.7 31.5 - 36.5 g/dL 06/26/2024 11:31 AM INCLINED RAILWAY OPERATOR [facility] RDW 12.9 10.0 - 15.0 % 06/26/2024 11:31 AM INCLINED RAILWAY OPERATOR [facility] Platelet Count 239 150 - 450 10e3/uL 06/26/2024 11:31 AM INCLINED RAILWAY OPERATOR [facility] % Neutrophils 75 % 06/26/2024 11:31 AM INCLINED RAILWAY OPERATOR [facility] % Lymphocytes 13 % 06/26/2024 11:31 AM INCLINED RAILWAY OPERATOR [facility] % Monocytes 11 % 06/26/2024 11:31 AM INCLINED RAILWAY OPERATOR [facility] % Eosinophils 1 % 06/26/2024 11:31 AM INCLINED RAILWAY OPERATOR [facility] % Basophils 1 % 06/26/2024 11:31 AM INCLINED RAILWAY OPERATOR [facility] % Immature Granulocytes 0 % 06/26/2024 11:31 AM INCLINED RAILWAY OPERATOR [facility] Absolute Neutrophils 6.1 1.6 - 8.3 10e3/uL 06/26/2024 11:31 AM INCLINED RAILWAY OPERATOR [facility] Absolute Lymphocytes 1.1 0.8 - 5.3 10e3/uL 06/26/2024 11:31 AM INCLINED RAILWAY OPERATOR [facility] Absolute Monocytes 0.9 0.0 - 1.3 10e3/uL 06/26/2024 11:31 AM INCLINED RAILWAY OPERATOR [facility] Absolute Eosinophils 0.1 0.0 - 0.7 10e3/uL 06/26/2024 11:31 AM INCLINED RAILWAY OPERATOR [facility] Absolute Basophils 0.0 0.0 - 0.2 10e3/uL 06/26/2024 11:31 AM INCLINED RAILWAY OPERATOR [facility] Absolute Immature Granulocytes 0.0 <=0.4 10e3/uL 06/26/2024 11:31 AM INCLINED RAILWAY OPERATOR [facility] Blood BLOOD SPECIMEN / Unknown Venipuncture / Unknown 06/26/2024 11:28 AM INCLINED RAILWAY OPERATOR 06/26/2024 11:28 AM INCLINED RAILWAY OPERATOR us Sobia Domingo MD LAB - BLOOD ORDERABLES Final Res ult [facility]ORATORY [facility] [address] [facility] (no room number, 1st floor of clinic) [place] [address] * DNA double stranded antibodies (06/26/2024 11:28 AM INCLINED RAILWAY OPERATOR) DNA (ds) Antibody 1.0 <10.0 IU/mL 06/29/2024 12:47 PM INCLINED RAILWAY OPERATOR [facility] Comment:Negative Blood BLOOD SPECIMEN / Unknown Venipuncture / Unknown 06/26/2024 11:28 AM INCLINED RAILWAY OPERATOR 06/26/2024 11:28 AM INCLINED RAILWAY OPERATOR Narrative [facility]END[facility] - 06/29/2024 12:47 PM INCLINED RAILWAY OPERATOR Negative: Less than 10 Equivocal: 10-15 Positive: Greater than 15 us Sobia Domingo MD LAB - BLOOD ORDERABLES Final Res ult [facility]Prot[facility]Endo [address] [facility] [address], [address] * CRP inflammation (06/26/2024 11:28 AM INCLINED RAILWAY OPERATOR) CRP Inflammation <3.00 <5.00 mg/L 06/26/19 9:30 PM INCLINED RAILWAY OPERATOR [facility] Blood BLOOD SPECIMEN / Unknown Venipuncture / Unknown 06/26/2024 11:28 AM INCLINED RAILWAY OPERATOR 06/26/2024 11:28 AM INCLINED RAILWAY OPERATOR Sobia Domingo MD LAB - BLOOD ORDERABLES Final Res ult [facility] [address] [facility], [address] * Creatinine (06/26/2024 11:28 AM INCLINED RAILWAY OPERATOR) Creatinine 0.56 0.51 - 0.95 mg/dL 06/26/2024 9:30 PM INCLINED RAILWAY OPERATOR [facility] GFR Estimate >90 >60 mL/min/1.7 3m2 06/26/2024 9:30 PM INCLINED RAILWAY OPERATOR [facility] Comment:eGFR calculated us2020 CKD-EPI equation. Blood BLOOD SPECIMEN / Unknown Venipuncture / Unknown 06/26/2024 11:28 AM INCLINED RAILWAY OPERATOR 06/26/2024 11:28 AM INCLINED RAILWAY OPERATOR us Sobia Domingo MD LAB - BLOOD ORDERABLES Final Res ult [facility] [address] [facility], [address] * C4 (06/26/2024 11:28 AM INCLINED RAILWAY OPERATOR) C4 Complement 24 13 - 39 mg/dL 06/29/2024 9:41 AM INCLINED RAILWAY OPERATOR [facility] Blood BLOOD SPECIMEN / Unknown Venipuncture / Unknown 06/26/2024 11:28 AM INCLINED RAILWAY OPERATOR 06/26/2024 11:28 AM INCLINED RAILWAY OPERATOR Sobia Domingo MD LAB - BLOOD ORDERABLES Final Res ult [facility]Prot[facility]Endo [address] [facility], [address] * C3 (06/26/2024 11:28 AM INCLINED RAILWAY OPERATOR) C3 Complement 150 81 - 157 mg/dL 06/29/2024 9:41 AM INCLINED RAILWAY OPERATOR [facility] Blood BLOOD SPECIMEN / Unknown Venipuncture / Unknown 06/26/2024 11:28 AM INCLINED RAILWAY OPERATOR 06/26/2024 11:28 AM INCLINED RAILWAY OPERATOR us Sobia Domingo MD LAB - BLOOD ORDERABLES Final Res ult [facility]PROT/ENDO [facility]/Prot/Endo [address] [facility], [address] * AST (06/26/2024 11:28 AM INCLINED RAILWAY OPERATOR) AST 20 0 - 45 U/L 06/26/2024 9:3 0 PM INCLINED RAILWAY OPERATOR [facility] Blood BLOOD SPECIMEN / Unknown Venipuncture / Unknown 06/26/2024 11:28 AM INCLINED RAILWAY OPERATOR 06/26/2024 11:28 AM INCLINED RAILWAY OPERATOR us Sobia Domingo MD LAB - BLOOD ORDERABLES Final Res ult [facility] [address] [facility], [address] [place] [address] * ALT (06/26/2024 11:28 AM INCLINED RAILWAY OPERATOR) ALT 22 0 - 50 U/L 06/26/2024 9:3 0 PM INCLINED RAILWAY OPERATOR [facility] Blood BLOOD SPECIMEN / Unknown Venipuncture / Unknown 06/26/2024 11:28 AM INCLINED RAILWAY OPERATOR 06/26/2024 11:28 AM INCLINED RAILWAY OPERATOR us Sobia Domingo MD LAB - BLOOD ORDERABLES Final Res ult [facility] [address] [facility], [address] * CT Chest Lung Cancer Scrn Low Dose wo (12/24/2023 11:44 AM CDT) Anatomical Region Laterality Modality Chest, SUBRAD CT BODY, UMP CT CHEST, RAD CT Computed Tomography Impressions 12/24/2023 3:52 PM CDT IMPRESSION: 1. ACR Assessment Category: Lung-RADS Category 2. Benign appearance or behavior. Recommendation: Continue annual screening, if clinically relevant (please order exam code IMG [id number]). 2. Significant Incidental Finding(s): Category S: Yes. Moderate coronary artery calcifications. Download the LungRADS Assessment Categories table at this site: http://www.acr.org/Quality-Safety/Resources/LungRADS LAURA GRIFFIN MD SYSTEM ID: [id number] Narrative 12/24/2023 3:[address] CHEST LUNG CANCER SCREEN LOW DOSE WITHOUT CONTRAST 12/24/2023 11:44 AM HISTORY: Lung cancer screening. No chest CT for lung cancer screening in the last year. 50-80 years; >= 20 pack-year smoking history. Former smoker; smoking quit date within the last 15 years. Personal history of tobacco use. TECHNIQUE: Scans obtained from the apices through the diaphragm without IV contrast. Low dose CT chest technique was utilized. Radiation dose for this scan was reduced using automated exposure control, adjustment of the mA and/or kV according to patient size, or iterative reconstruction technique. COMPARISON: CT 12/20/2022. FINDINGS: Lungs: Emphysema. No acute consolidation or effusion. Stable 5 mm solid nodule right upper lobe, series 6 image 40. The previously noted new nodule at the right upper lobe is not currently seen. Calcified granulomas again noted. No new worrisome airspace disease. Additional findings: No adenopathy or acute mediastinal abnormality. Benign calcified lymph nodes noted. Moderate coronary artery calcifications. us Jean Guerin MD [facility] [place] [facility] ORDERABLES Ed ited Result - Final * General PFT Lab (Please always keep checked) (06/10/2023 2:03 PM INCLINED RAILWAY OPERATOR) FIO2-Pre 28.00 % BREEZE PFT 06/10/2023 2:03 PM INCLINED RAILWAY OPERATOR Narrative BREEZE PFT - 06/13/2023 6:45 PM INCLINED RAILWAY OPERATOR IMPRESSION: Hypoxemia with ambulation on room air. Six minute walk distance is reduced indicating a decrease in exercise tolerance. There is significant oxygen desaturation, without hypoxemia, during the six- minute walk done on supplemental oxygen at 2 L/m. Christine Razo MD This interpretation has been electronically signed: CHRISTINE RAZO 06/13/2023 06:28:31 PM us Jean Guerin MD PFT ORDERABLES Makenzie l Result LUIS PFT * MA Screen Bilateral w/Gaston (08/18/2020 9:45 AM CDT) Anatomical Region Laterality Modality Breast Bilateral Mammography Impressions 08/18/2020 11:25 AM CDT IMPRESSION: BI-RADS CATEGORY: 1 - Negative RECOMMENDED [...] letter mailed to patient. JEAN LORENZ MD us Nilton Medellin PA-C IMG MAMMOGRAPHY ORDERAB LES Final Result * Lipid panel reflex to direct LDL Fasting (08/05/2020 8:55 AM CDT) Cholesterol 180 <200 mg/dL 08/05/2020 1:07 PM CDT [facility] Triglycerides 85 <150 mg/dL 08/05/2020 1:07 PM CDT [facility] HDL Cholesterol 92 >49 mg/dL 1:10 PM T [facility] LDL Cholesterol Calculated 71 <100 mg/dL 08/05/2020 1:10 PM T [facility] Comment:Desirable: <100 mg/d l Non HDL Cholesterol 88 <130 mg/dL 08/05/2020 1:10 PM T [facility] Blood 08/05/2020 8:55 AM CDT 08/05/2020 8:56 AM CDT us Nilton Medellin PA-C LAB - BLOOD ORDERABLES Final Result [facility] [address] [place] [address], [facility] [phone] * (ABNORMAL) Basic metabolic panel (08/05/2020 8:55 AM CDT) Sodium 140 133 - 144 mmol/L 08/05/2020 1:00 PM [facility] Potassium 4.9 3.4 - 5.3 mmol/L 08/05/2020 1:00 PM [facility] Chloride 109 94 - 109 mmol/L 08/05/2020 1:00 PM [facility] Carbon Dioxide 29 20 - 32 mmol/L 08/05/2020 1:07 PM [facility] Anion Gap 2(L) 3 - 14 mmol/L 08/05/2020 1:07 PM [facility] Glucose 107(H) 70 - 99 mg/dL 08/05/2020 1:07 PM [facility] Urea Nitrogen 10 7 - 30 mg/dL 08/05/2020 1:07 PM [facility] Creatinine 0.61 0.52 - 1.04 mg/dL 08/05/2020 1:07 PM [facility] GFR Estimate >90 >60 mL/min/{1. 73_m2} 08/05/2020 1:07 PM CDT [facility] Comment: Non GFR Calc Starting 04/22/2018, serum creatinine based estimated GFR (eGFR) will be calculated using the Chronic Kidney Disease Epidemiology Collaboration (CKD-EPI) equation. GFR Estimate If Black >90 >60 mL/min/{1. 73_m2} 08/05/2020 1:07 PM CDT [facility] Comment: GFR Calc Starting 04/22/2018, serum creatinine based estimated GFR (eGFR) will be calculated using the Chronic Kidney Disease Epidemiology Collaboration (CKD-EPI) equation. Calcium 9.5 8.5 - 10.1 mg/dL 08/05/2020 1:07 PM CDT [facility] 08/05/2020 8:55 AM CDT 08/05/2020 8:56 AM CDT us Nilton Medellin PA-C LAB - BLOOD ORDERABLES Final Result Performing Organization Address City/State/[facility] Co de Phone Number [address] [address], [facility] [phone] * COLONOSCOPY (12/31/2019 9:00 AM CDT) COLONOSCOPY [address] [address] [phone] Endoscopy Department Patient Name: Dusty Bello Procedure Date: 12/31/2019 9:00 AM Date of : 1960 Admit Type: Outpatient Age: 59 Room: Room 2 Gender: Female Note Status: Finalized Attending MD: Natasha Conteh MD Total Sedation Time: Procedure: Colonoscopy Indications: Family history of colon cancer in a first-degree relative before age 60 years Providers: Natasha Conteh MD Referring MD: Nilton Medellin Medicines: Monitored Anesthesia Care Complications: No immediate complications. Procedure: After obtaining informed consent, the colonoscope was passed under direct vision. Throughout the procedure, the patient's blood pressure, pulse, and oxygen saturations were monitored continuously. The Colonoscope was introduced through the anus and advanced to the cecum, identified by appendiceal orifice and ileocecal valve. The colonoscopy was performed without difficulty. The patient tolerated the procedure well. The quality of the bowel preparation was good. Findings: The perianal and digital rectal examinations were normal. Pertinent negatives include normal sphincter tone. Two sessile polyps were found in the rectum and cecum. The polyps were 2 to 3 mm in size. These polyps were removed with a piecemeal technique using a cold biopsy forceps. Resection and retrieval were complete. Verification of patient identification for the specimen was done by the physician, nurse and glass technician/installer using the patient's name, date and medical record number. Estimated blood loss was minimal. Non-bleeding external and internal hemorrhoids were found during retroflexion. The hemorrhoids were Grade II (internal hemorrhoids that prolapse but reduce spontaneously). Impression: - Two 2 to 3 mm polyps in the rectum and in the cecum, removed piecemeal using a cold biopsy forceps. Resected and retrieved. - Non-bleeding external and internal hemorrhoids. Recommendation: - Repeat colonoscopy in 5 years for surveillance. - Return to primary care physician PRN. Electronically Signed by Dr. Conteh DominguezLizzie Conteh MD 12/31/2019 9:35:16 AM I was physically present for the entire viewing portion of the exam.[facility] MD Yady Number of Addenda: 0 Note Initiated On: 12/31/2019 9:00 AM RADIOLOGY RESULTS 12/31/2019 9:00 AM CDT Nilton Medellin PA-C PROCEDURES Final R esult RADIOLOGY RESULTS * (ABNORMAL) Fecal colorectal cancer screen (FIT) (06/26/2019 7:00 AM INCLINED RAILWAY OPERATOR) Occult Blood Scn FIT Positive(A ) NEG^Negati ve 06/29/2019 11:50 AM INCLINED RAILWAY OPERATOR [facility] Stool specimen (specimen) 06/26/2019 7:00 AM INCLINED RAILWAY OPERATOR 06/29/2019 10:28 AM INCLINED RAILWAY OPERATOR Nilton Medellin PA-C LAB - STOOLS ORDERABLES Final Result Performing Organization Address City/[facility]/ZIP Co de Phone Number [facility] [address] [place] [address] * HPV High Risk Types DNA Cervical (05/29/2019 3:28 PM INCLINED RAILWAY OPERATOR) HPV Source SurePath 05/29/2019 3:17 PM INCLINED RAILWAY OPERATOR [facility] HPV 16 DNA Negative NEG^Nega tive 06/08/2019 9:24 AM INCLINED RAILWAY OPERATOR [facility] HPV 18 DNA Negative NEG^Nega tive 06/08/2019 9:24 AM INCLINED RAILWAY OPERATOR [facility] Other HR HPV Negative NEG^Nega tive 06/08/2019 9:24 AM INCLINED RAILWAY OPERATOR [facility] Final Diagnosis This patient's sample is negative for HPV DNA. 06/08/2019 9:24 AM INCLINED RAILWAY OPERATOR [facility] Comment: This test was developed and its performance characteristics determined by the [facility], [facility] Diagn[facility] Laboratory. It has not been cleared or approved by the FDA. The laboratory is regulated under CLIA as qualified to perform high-complexity testing. This test is used for clinical purposes. It should not be regarded as investigational or for research. (Note) METHODOLOGY: The Sal jacklyn 4800 system uses automated extraction, simultaneous amplification of HPV (L1 region) and beta-globin, followed by real time detection of fluorescent labeled HPV and beta globin using specific oligonucleotide probes . The test specifically identifies types HPV 16 DNA and HPV 18 DNA while concurrently detecting the rest of the high risk types (31, 33, 35, 39, 45, 51, 52, 56, 58, 59, 66 or 68). COMMENTS: This test is not intended for use as a screening device for women under age 30 with normal cervical cytology. Results should be correlated with cytologic and histologic findings. Close clinical followup is recommended. Specimen Description Cervical Cells 05/29/2019 3:17 PM INCLINED RAILWAY OPERATOR [facility] Comment:[id number] Cervical Cells 05/29/2019 3: 28 PM INCLINED RAILWAY OPERATOR 2019 8:27 AM INCLINED RAILWAY OPERATOR us Nilton Medellin PA-C LAB - BLOOD ORDERABLES Final Result [facility] [address] [place] [address] [address] * Pap imaged thin layer screen with HPV - recommended age 30 - 65 years (select HPV order below) (05/29/2019 3:17 PM INCLINED RAILWAY OPERATOR) PAP SEBASTIAN Hernández Report Patient Name: DUSTY BELLO MR#: [id number] Specimen #: [id number] Collected: 05/29/2019 Received: 06/02/2019 Reported: 06/04/2019 14:00 Ordering Phy(s): NILTON MEDELLIN For improved result formatting, select 'View Enhanced Report Format' under Linked Documents section. SPECIMEN/STAIN PROCESS: Pap imaged thin layer prep screening (Surepath, FocalPoint with guided screening) Pap-Cyto x 1, HPV ordered x 1 SOURCE: Cervical, endocervical Pap imaged thin layer prep screening (Surepath, FocalPoint with guided screening) SPECIMEN ADEQUACY: Satisfactory for evaluation. -Transformation zone component present. CYTOLOGIC INTERPRETATION: Negative for intraepithelial lesion or malignancy Electronically signed out by: DEANGELO Cruz (ASCP) CLINICAL HISTORY: Post Menopausal, Papanicolaou Test Limitations: Cervical cytology is a screening test with limited sensitivity; regular screening is critical for cancer prevention; Pap tests are primarily effective for the diagnosis/preventi on of squamous cell carcinoma, not adenocarcinomas or other cancers. COLLECTION SITE: Client: [facility] Location: [facility] (P) The [facility] component of [facility], with the professional component performed at the [facility], [address] [place] [phone] ([phone]) [facility] Cytologic material (specimen) 05/29/2019 3:17 PM INCLINED RAILWAY OPERATOR 06/02/2019 3:05 PM INCLINED RAILWAY OPERATOR Nilton Medellin PA-C LAB - OPTIME CLINICAL [facility] Final Result Performing Organization Address City/[facility]/ZIP Co de Phone Number [facility] * Hepatitis C Screen Reflex to HCV RNA Quant and Genotype (04/22/2019 4:32 PM INCLINED RAILWAY OPERATOR) Hepatitis C Antibody Nonreactive NR^Nonre active 04/23/2019 9:09 AM INCLINED RAILWAY OPERATOR [facility] Comment: Assay performance characteristics have not been established for newborns, infants, and children Blood specimen (specimen) 04/22/2019 4:32 PM INCLINED RAILWAY OPERATOR 04/22/2019 4:33 PM INCLINED RAILWAY OPERATOR Nilton Medellin PA-C LAB - BLOOD ORDERABLES Final Result [address] [address] from Last 3 Months or Most Recently Relevant to Health Maintenance Insurance [facility] [place] BLUE MEDICARE [facility] [place] BLUE MEDICARE * Guarantor: Dusty Bello Account Type Relation to Patient Date of Phone Billing Address Medication Therapy Self [address] [place] [id number] [facility] Advance Directives For more information, please contact: [phone] * Full Code (Latest Code Status on File) Date Activated Date Inactivated Comments 07/12/2017 8:57 AM 07/18/2018 6:43 AM * Full Code Date Activated Date Inactivated Comments 07/10/2017 7:49 PM 07/12/2017 8:57 AM Care Teams Natural Foods Clerk Relationship Specialty Start Date End Date Mehreen Toussaint NP [facility] [address] [place] [address] PCP - General 03/07/23 Farzana Sabillon MD [address] [facility] [address] [place] [address] Assigned Endocrinology Provider 08/27/23 Jean Guerin MD [address] [facility] [place] [place] [address] Critical Care 06/12/24 Sobia Domingo MD [address] [address] [place] [address] Assigned Rheumatology Provider 06/28/24 Carleen Garcia EP [facility] [address] [place] [address] Cardiac Rehabilitation Therapist 06/30/24 Kimberlee Logan RP Pharmacist Pharmacist 07/01/24 Kimberlee Logan RPH Assigned MTM Pharmacist 07/26/24
--- OUTSIDE RECORDS SUMMARY | 2024-08-12 20:15 | XMS_ITS | Clinical Summary ---
Author Organization [employer] [facility] Address [address] [place] [address] Care Team Providers Care Metal Cnc Operator Name Role Phone [facility] Primary Care Provider + [facility] [place] Unavailable [phone] Allergies Active Allergy Reactions Criticality Noted Date Comments Warfarin Sodium Itching 05/02/2021 Hydroxychloroquine Itching 06/18/2021 Acetaminophen Hepatic Dysfunction 05/07/2012 Medications Nebulizer Accessories For home use. Length of need: 99 1 Kit 0 3 Active Nebulizer Nebulizer, neb kit, neb cup and mask. Medication: duoneb For home use. Length of need for Medicare patients: 99 1 Device 0 3 Active albuterol-ipratro pium (DUONEB) (2.5-0.5 mg) in 3 mL NEBULIZATION solution Inhale 1 Neb via a nebulizer 4 times daily. Active fluticasone propion-salmetero L (Advair Diskus) 500-50 mcg/Dose diskus inhaler Inhale [...] bedtime. Active albuterol (PROVENTIL) 0.083 % neb solutionIndicatio ns:COPD with acute exacerbation (HC) Inhale 3 mL (2.5 mg) via a nebulizer every 2 hours if needed for Shortness of Breath 2nd choice. 180 mL 05/03/2021 1:15 PM CONTAINER REPAIRER 1 Active medication order composer Take 1 Capsule by mouth once daily. Osteo 7 Bone Support Formula supplement Active TURMERIC ORAL Take 1 Capsule by mouth once daily with evening meal. 1800 mg capsule Active cholecalciferol (Vitamin D) 1,000 unit capsule Take 1,000 units by mouth once daily. Active magnesium oxide,aspartate,c itr 400 mg magnesium cap Take 1 Capsule by mouth once daily. Active guaiFENesin SR (Mucinex) 1,200 mg Ta12 Take 1,200 mg by mouth every 12 hours if needed for Expectoration. Active oxygen-air delivery systems (HOME OXYGEN)Indication s:Chronic obstructive pulmonary disease, unspecified COPD type (HC) Oxygen for home use. Liters per minute: 2 L/min via nasal cannula. Frequency of use: Continuous with portability; Length of need: indefinitely. Requesting an oxygen tank. 1 Each 2 Active predniSONE (DELTASONE) 20 mg tabletIndications :Pneumonia of left upper lobe due to infectious organism Take 1 Tablet (20 mg) by mouth once daily with a meal. Take 2 tablets for 2 days then 1 tablet for 2 days. 6 Tablet 2 Active oxygen-air delivery systems (HOME OXYGEN) 1 Each once daily if needed. 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 Overview (05/12/2021): On Xarelto Acute and chronic respiratory failure [...] microscopic Hematuria 05/12/2012 Chronic low blood pressure Overview (05/08/2012): per pt Resolved Problems Problem Noted Date Diagnosed Date Resolved Date Acute respiratory failure with hypercapnia 05/07/2012 05/23/2012 steroid induced hyperglycemia 05/07/2012 05/23/2012 Tobacco use 06/25/2013 acute exacerbation of COPD ( chronic obstructive pulmonary disease) 3 Immunizations Immunization Administration Dates Next Due Influenza RIV4 (Age 18+ Year s) PRESERV FREE 01/26/2021,02/01/2020,05/29/2019,2018 Influenza, IIV3 (Age >=3 years) 05/12/2012 Pneumococcal Poly,23-Valent (Pneumovax) 05/09/2018,05/12/2012 Tdap 07/16/2012 Zoster (Shingrix-RZV, recombinant) 03/10/2021, Family History Medical History Relation Name Comments Cancer-colon Brother 1 alive, older, c olon ca Heart Disease Brother 2 alive, ygr, [place] Diabetes Father dec age 50s jenny betes [...] Paying Living Expenses Not on file 05/12/2021 Comments No Sex and Gender Information Value Date Recorded Sex Assigned at Not on file Legal Sex Female 8:44 AM CONTAINER REPAIRER Gender Identity Not on file Sexual Orientation Not on file Obstetrics History Para Term AB IAB SAB Ectopic Multiple Livin g Live Births 2 2 2 Date Outcome GA Total Labor Labor/2nd/3rd Weight Sex Type Anes PTL Rafia A1 A5 Name Clin Para Vag Para Vag Last Filed Vital Signs Vital Sign Reading Time Taken Comments Blood Pressure 130/90 07/03/2021 1:10 PM CONTAINER REPAIRER Pulse 80 07/03/2021 1:10 PM CONTAINER REPAIRER Temperature 36.7 C (98 F) 07/03/2021 1:10 PM CONTAINER REPAIRER Respiratory Rate 22 07/03/2021 1:10 PM CONTAINER REPAIRER Oxygen Saturation 96% 07/03/2021 1:10 PM CONTAINER REPAIRER Inhaled Oxygen Concentration - - Weight 50.3 kg (111 lb) 06/19/2021 11:00 AM CONTAINER REPAIRER Height 152.4 cm (5') 06/19/2021 11:00 AM CONTAINER REPAIRER Body Mass Index 21.68 06/19/2021 11:00 AM CONTAINER REPAIRER Plan of Treatment Health Maintenance Due Date Last Done Comments Colonoscopy through age 75 1960 HIV for age 15-65 1975 Hepatitis C screening for ag e 18-79 1978 Pap test for age 21-65 1981 Mammogram for age 45-75 06/25/2014 06/25/2013 Lipids for age 45-75 07/16/2017 07/16/2012 Pneumococcal series for age 50+ (2 of 2 - PCV) 05/09/2019 05/09/2018, 05/12/2012 RSV vaccine for adults or (1 - Risk 60-74 years 1-dose series) 2020 BMI (ht and wt on same day) for age 18+ 06/19/2022 06/19/2021, 05/26/2015 Depression screening for age 12+ 06/21/2022 06/21/2021, 06/19/2021, 06/18/2021, Additional history exists Tetanus booster 07/16/2022 07/16/2012 COVID-19 vaccine series ( season) 2024 03/15/2023, 05/02/2022, 06/30/2021, Additional history exists Influenza Vaccine (Season Ended) 2025 01/26/2021, 02/01/2020, 05/29/2019, Additional history exists Tdap Completed 07/16/2012 Zoster (shingles) series for age 50+ Completed 03/10/2021, 12/09/2020 Procedures Procedure Name Priority Date/Time Associated Diagnosis Comments XR MAMMO BILAT SCREEN FFDM (IA) Routine 06/25/2013 12:52 PM CONTAINER REPAIRER Other screening mammogram LIPID PANEL W REFLEX MEASURED LDL Timed 07/16/2012 4:47 PM CDT Health care maintenance from Last 3 Months or Most Recently Relevant to Health Maintenance Results * XR MAMMO BILAT SCREEN FFDM (06/25/2013 12:52 PM CONTAINER REPAIRER) Anatomical Region Laterality Modality BREASTS, Breast Left, Breast Right Bilateral Mammography Impressions 07/03/2013 4:02 PM CONTAINER REPAIRER There is no radiographic evidence for malignancy. Recommend annual mammograms. A lay language report of this examination will be provided to the patient. MAMMOGRAM ASSESSMENT: ACR 1 Negative Narrative 07/03/2013 4:02 PM CONTAINER REPAIRER XR MAMMO BILAT SCREEN FFDM [G0202.0] CLINICAL HISTORY: This is an asymptomatic 53 y.o. patient. INDICATION FOR EXAM: Mammogram Screening. TECHNIQUE: CC & MLO views were obtained. This digital study was evaluated with the assistance of Computer-Aided Detection. COMPARISON FILM: Yes 03/06/06 OTHER FACILITY FINDINGS: Mammographically, the breast tissue has scattered fibroglandular densities (approximately 25% - 50% glandular). There are no dominant masses, suspicious micro calcifications [...] ACR 1 Negative Lars Langford MD MAMMO Final Result * (ABNORMAL) LIPID PANEL W REFLEX MEASURED LDL (07/16/2012 4:47 PM CDT) CHOLESTEROL,TOTAL 232(H) 100 - 199 mg/dL [facility] TRIGLYCERIDES 91 <150 mg/dL [facility] HDL CHOLESTEROL 64 >40 mg/dL [facility] CHOL/HDL RATIO 3.63 <4.50 [facility] NON-HDL CHOLESTEROL 168 Undefined mg/dL [facility] LDL CHOLESTEROL 150(H) <131 mg/dL [facility] PATIENT STATUS Fasting [facility] Blood specimen (specimen) BLOOD SPECIMEN / Unknown 07/16/2012 4:47 PM CDT 07/16/2012 4:39 PM CDT Lars Langford MD CHEMISTRY Final Result [facility] [address] [place] [address] from Last 3 Months or Most Recently Relevant to Health Maintenance Insurance [facility] MEDIC[facility] PART A HB ONLY Advance Directives Documents on File Type Date Recorded Patient Cement Gun Operator Expl anation Healthcare Directive 05/03/2021 021 * [...] 10:10 PM 05/12/2012 7:13 PM Care Teams Metal Cnc Operator Relationship Specialty Start Date End Date [facility] [address] [place] [address] PCP - General 01/20/20 [facility] [address] [address] 06/16/21
--- OUTSIDE RECORDS SUMMARY | 2024-08-12 20:15 | XMS_ITS ---
Author Organization [facility] Address [address] [place] [address] [address] [place] [address] Care Team Providers Care Salon Manager Name Role Phone Mehreen Toussaint Primary Care Provider Unavaila Jareth Davidson Unavailable [phone] REASON FOR VISIT * Local * Bilateral L4-L5 TFE With Alternate Steroid (Used Kenalog Last Time) Encounters Encounter Location Date Provider Diagnosis [address] [facility] [address] [facility] [address] [place] [address] 07/09/2023 Jareth Higgins Radiculopathy, lumbar region M54.16 Assessments Encounter Date Diagnosis (ICD Code) Assessment Notes Treatment Notes Treatment Clinical Notes Section Notes 07/09/2023 Radiculopathy, lumbar region (ICD-10 - M54.16) Plan Of Treatment No Information Progress Notes * Kamini GONZALEZTanishaB: (63 yo F)Acc No.[id number]:07/09/2023 Patient: Keila Christianson Provider: Manuel Higgins M.D. :1960 A ge:63 Y S ex:Female Date:07/09/2023 Phone: Address:[address] [place], [place] [id number] Pcp:Mehreen Toussaint * Billing Information: * Visit Code: * Procedure Codes: 85080 Transforaminal L or S single. Modifiers: 50 A4649 IV Starter Kit. A4616 IV Tubing. J7120 Lactate Ringers 1000 ml. A4556 EKG Pads-Electrodes. A4615 O2 Nasal Cannula. A4209 5 cc - 19 cc gauge syringe. A4930 Gloves, size 8. A4215 [place] only Sterile any size each. A4550 Spinal Support Tray. S0020 Bupivicaine 0.5% mg/ml. J1030 Depo-Medrol 40mg/ml. Units: 2.00. J2704 Propofol 10 mg/ml. Q9967 Omnipaque 300 mgl/mL. Units: 3.00. * ONAL FACILITIES MANAGER Sign off status: Completed true * Provider: Manuel Higgins M.D. Date: 0 07/09/2023 Generated for Mian montano/Jayson/Tiburcioitting on: 0 08/12/2024 08:15 PM CDT
--- OUTSIDE RECORDS SUMMARY | 2024-08-12 20:15 | XMS_ITS | Encounter Summary ---
Author Organization [facility] Address [address] [place] [address] Care Team Providers Care Electricity Trading Analyst Name Role Phone Mehreen Toussaint NP Primary Care Provider [phone] Farzana Sabillon MD Unavailable +[phone] Jean Guerin MD Unavailable + [phone] Sobia Domingo MD Unavailable Carleen Garcia Unavailable +[phone] Kimberlee Logan [facility] Unavailable Unavailable Kimberlee Logan [facility] Unavailable Unavailable Encounter Details Date Type Department Care Team (Latest Contact Info) Description 07/28/2024 Travel Social History Tobacco Use Types Packs/Day [...] Sex Assigned at Female 04/23/2018 4:04 PM INTERIOR DESIGN ASSISTANT Legal Sex Female 9:39 AM INTERIOR DESIGN ASSISTANT Gender Identity Female 04/23/2018 4:04 PM INTERIOR DESIGN ASSISTANT Sexual Orientation Straight 04/23/2018 4: 04 PM INTERIOR DESIGN ASSISTANT documented as of this encounter Plan of Treatment Upcoming Encounters Date Type Department Care Team (Late st Contact Info) Description 10/05/2024 1:00 PM CDT Virtual Visit [facility] [address] [place] [phone] Farzana Sabillon MD [address] [facility] 200 [place] [address] 10/06/2024 1:00 PM CDT Office Visit [facility] [address] [phone] Jean Guerin MD [address] [place] [address] 12/25/2024 10:30 AM CDT Office Visit [address] [phone] Sobia Domingo MD [address] [place], [place] [address] 215 [place], [place] [address] documented as of this encounter Visit Diagnoses Not on filedocumented in this encounter Additional Health Concerns Assessment Noted Time PHQ-9 Depression Total Score: 2 09/21/19 20 7:02 AM CDT documented as of this encounter Care Teams Electricity Trading Analyst Relationship Specialty Start Date End Date Mehreen Toussaint NP [address] [address] PCP - General 03/07/23 Farzana Sabillon MD [address] [place] [place] [address] Assigned Endocrinology Provider 08/27/23 Jean Guerin MD [address] [place] [address] Critical Care 06/12/24 Sobia Domingo MD [address] [facility] [address] [address] Assigned Rheumatology Provider 06/28/24 Carleen Garcia EP [facility] [address] [facility] [address] Cardiac Rehabilitation Therapist 06/30/24 Kimberlee Logan RP Pharmacist Pharmacist 07/01/24 Kimberlee Logan RPH Assigned MTM Pharmacist 07/26/24 documented as of this encounter
--- OUTSIDE RECORDS SUMMARY | 2024-08-12 20:15 | XMS_ITS | Encounter Summary ---
Author Organization [facility] Address [address] [place] [address] Care Team Providers Care Assistant Chief Of Police Name Role Phone Mehreen Toussaint NP Primary Care Provider Farzana Sabillon MD Unavailable +[phone] Jean Guerin MD Unavailable + [phone] Sobia Domingo MD Unavailable Carleen Garcia Unavailable [phone] DesmondKimberlee balbuena [facility] Unavailable Unavailable DesmondKimberlee [facility] Unavailable Unavailable Reason for Visit * Rehab Therapy Cardiac Therapy (Routine: Next available opening) - Authorized Specialty Diagnoses / Procedures Referred By Contac t Referred To Contact CARDIAC REHAB Diagnoses Stage 4 very severe COPD by GOLD classification (H) [facility] [address] [place] [address] Phone: tel: Referral ID Status Reason Start Date Expiration Date V isits Requested Visits Authorized [id number] Authorized 06/26/2024 05/05/2025 72 72 Encounter Details Date Type Department Care Team (Latest Contact Info) Description 07/28/2024 10:18 AM CDT - 07/28/2024 11:59 PM CDT Hospital Encounter [facility] [address] [place] [address] Jean Guerin MD [address] [place] [address] 1, Rh Pulmonary Rehab Discharge Disposition: Home [...] Sex Assigned at Female 04/23/2018 4:04 PM QUICK SKETCH ARTIST Legal Sex Female 9:39 AM QUICK SKETCH ARTIST Gender Identity Female 04/23/2018 4:04 PM QUICK SKETCH ARTIST Sexual Orientation Straight 04/23/2018 4: 04 PM QUICK SKETCH ARTIST documented as of this encounter Medications at [...] Description 10/05/2024 1:00 PM CDT Virtual Visit [facility] [address] [place] [address] Farzana Sabillon MD [address] [facility] [facility] 200 [place] [address] 10/06/2024 1:00 PM CDT Office Visit [facility] [address] [phone] Jean Guerin MD [address] [place] [address] 12/25/2024 10:30 AM CDT Office Visit [facility] [place] 65[address] [facility] 200 [place] [phone] Sobia Domingo MD [address] [place] [place], [place] [address] documented as of this encounter Visit Diagnoses Not on filedocumented in this encounter Additional Health Concerns Assessment Noted Time PHQ-9 Depression Total Score: 2 09/21/19 20 7:02 AM CDT documented as of this encounter Care Teams Assistant Chief Of Police Relationship Specialty Start Date End Date Mehreen Toussaint NP [facility] 225 [place] [address] PCP - General 03/07/23 Farzana Sabillon MD [address] [facility] [facility] 200 [place] [address] Assigned Endocrinology Provider 08/27/23 Jean Guerin MD [address] [place] [address] Critical Care 06/12/24 Sobia Domingo MD [address] [place] [place] [address] Assigned Rheumatology Provider 06/28/24 Carleen Garcia EP [facility] [address] [place] [address] Cardiac Rehabilitation Therapist 06/30/24 Kimberlee Logan RPH Pharmacist Pharmacist 07/01/24 Kimberlee Logan RPH Assigned MTM Pharmacist 07/26/24 documented as of this encounter
--- OUTSIDE RECORDS SUMMARY | 2024-08-12 20:16 | XMS_ITS | Encounter Summary ---
Author Organization [facility] [place] Address [address] [place] [address] Care Team Providers Care Rivet Bucker Name Role Phone Nilton Roach PA-C Primary Care Provider Nilton Roach PA-C Unavailable [phone] Betty Gupta MD Unavailable +[phone] Gray Lora MD Unavailable [phone] Reginald Wen MD Unavailable +[phone] Nik Bryan MD Unavailable Tracie Godinez MD Unavailable + [phone] Reginald Wen MD Unavailable +[phone] Keegan Mcdonald MD Unavailable +[phone] Keegan Mcdonald MD Unavailable +[phone] Jean Guerin MD Unavailable + [phone] Mehreen Toussaint NP Primary Care Provider Nilton Roach PA-C Unavailable +[phone] Farzana Sabillon MD Unavailable +[phone] Saroj Romeo MD Unavailable Jean Guerin MD Unavailable + [phone] Sobia Domingo MD Unavailable Carleen Garcia EP Unavailable Kimberlee Logan [facility] Unavailable Unavailable Kimberlee Logan [facility] Unavailable Unavailable Encounter Details Date Type Department Care Team (Late Contact Info) Description 08/17/2019 MyC Medical Advice [facility] 290 [facility] 100 [place] [phone] Nilton Roach PA-C 290 [facility] 100 [place], [place] [address] Social History Tobacco Use Types Packs/Day Years Used Date Smoking Tobacco: Some Days Cigarettes 1 40 Smokeless Tobacco: Never Comments:Occasional Alcohol Use Standard Drinks/Week Comments No 0 (1 standard drink = 0.6 oz pur e alcohol) PHQ-2 Answer Date Recorded PHQ-2 Score 0 05/14/2018 Comments No Sex and Gender Information Value Date Recorded Sex Assigned at Female 04/23/2018 4:04 PM PROPELLER LAYOUT WORKER Legal Sex Female 9:39 AM PROPELLER LAYOUT WORKER Gender Identity Female 04/23/2018 4:04 PM PROPELLER LAYOUT WORKER Sexual Orientation Straight 04/23/2018 4 :04 PM PROPELLER LAYOUT WORKER COVID-19 Exposure Response Date Recorded In the last month, have you been in contact with someone who was confirmed or suspected to have Coronavirus / COVID-19? No / Unsure 08/07/2019 11:10 AM CDT documented as of this encounter Plan of Treatment Upcoming Encounters Date Type Department Care Team ([facility] Contact Info) Description 10/05/2024 1:00 PM CDT Virtual Visit [facility] [address] [place] [address] Farzana Sabillon MD [address] [facility] 200 [place], [place] [address] 10/06/2024 1:00 PM CDT Office [facility] [address] [address] Jean Guerin MD [address] [place] [address] 12/25/2024 10:30 AM CDT Office Visit [facility] [place] [address] [facility] [address] [place] [phone] Sobia Domingo MD [address] [facility] 215 [place] [address] documented as of this encounter Visit Diagnoses Not on filedocumented in this encounter Additional Health Concerns Infection Onset Date Last Indicated Resolved Time Rule Out COVID-19 09/12/2020 09/12/2020 09/13/2020 5:31 PM CDT Assessment Noted Time PHQ-9 Depression Total Score: 1 05/30/19 20 7:03 AM PROPELLER LAYOUT WORKER documented as of this encounter Care Teams Rivet Bucker Relationship Specialty Start Date End Date Nilton Roach PA-C [address] [place] [address] PCP - General Physician Product Safety Manager 01/02/17 03/06/23 Mehreen Toussaint NP [address] [address] PCP - General 03/07/23 Nilton Roach PA-C [address] [place] [address] Assigned PCP 12/13/16 12/21/22 [place] [address] [place] [address] Assigned Rheumatology Provider 02/26/20 03/27/24 Gray Lora MD 125 [place] [address] Assigned Pulmonology Provider 02/26/20 05/27/21 Reginald Wen MD 4000 [place] [address] Assigned Musculoskeletal Provider 05/29/20 07/19/20 Nik Bryan MD [address] [place] [address] Assigned Cancer Care Provider 02/26/20 11/17/21 Tracie Godinez MD [address] [address] Assigned Musculoskeletal Provider 05/22/20 05/28/20 Reginald Wen MD [address] [place] [address] Assigned Musculoskeletal Provider 02/26/20 05/21/20 Keegan Mcdonald MD [address] [place] [address] Assigned Pulmonology Provider 07/09/21 09/02/21 Keegan Mcdonald MD [address] [place] [address] Assigned Pulmonology Provider 12/30/21 05/03/23 Jean Guerin MD [address] [place] [address] Assigned PCP 12/22/22 05/29/23 Nilton Roach PA-C [address] [place] [address] Assigned PCP 05/30/23 02/25/24 Farzana Sabillon MD [address] [place] [address] Assigned Endocrinology Provider 08/27/23 [place] [address] [place] [address] Assigned Rheumatology Provider 03/28/24 06/27/24 Jean Guerin MD [address] [facility] [place] [address] Critical Care 06/12/24 Sobia Domingo MD [address] [place] [place] [address] Assigned Rheumatology Provider 06/28/24 Carleen Garcia EP [facility] [address] [place] [address] Cardiac Rehabilitation Therapist 06/30/24 Kimberlee Logan [facility] Pharmacist Pharmacist 07/01/24 Kimberlee Logan RPH Assigned MTM Pharmacist 07/26/24 documented as of this encounter
--- OUTSIDE RECORDS SUMMARY | 2024-08-12 20:16 | XMS_ITS | Encounter Summary ---
Author Organization [facility] Address [address] [place] [address] Care Team Providers Care Certified Detention Deputy Name Role Phone Nilton Roach PA-C Primary Care Provider Nilton Roach PA-C Unavailable [phone] Nilton Roach PA-C Unavailable +[phone] Betty Gupta MD Unavailable +[phone] Gray Lora MD Unavailable +[phone] Reginald Wen MD Unavailable +[phone] Nik Bryan MD Unavailable Tracie Godinez MD Unavailable + [phone] Reginald Wen MD Unavailable +[phone] Keegan Mcdonald MD Unavailable +[phone] Keegan Mcdonald MD Unavailable +[phone] Jean Guerin MD Unavailable + [phone] Mehreen Toussaint NP Primary Care Provider [phone] Nilton Roach PA-C Unavailable +[phone] Farzana Sabillon MD Unavailable +[phone] Saroj Romeo MD Unavailable Jean Guerin MD Unavailable [phone] Sobia Domingo MD Unavailable Carleen Garcia Unavailable Kimberlee Logan [facility] Unavailable Unavailable Kimberlee Logan [facility] Unavailable Unavailable Encounter Details Date Type Department Care Team (Late st Contact Info) Description 01/13/2018 [facility] Medical Advice [facility] Scheduling [address] [place] [phone] Milagro Tanner Social History Tobacco Use Types Packs/Day Years Used Date Smoking Tobacco: Some Days Cigarettes Smokeless Tobacco: Never Comments:Occasional Alcohol Use Standard Drinks/Week Comments No 0 (1 standard drink = 0.6 oz pur e alcohol) Comments No Sex and Gender Information Value Date Recorded Sex Assigned at Female 04/23/2018 4:04 PM CHEMISTRY ASSOCIATE Legal Sex Female 9:39 AM CHEMISTRY ASSOCIATE Gender Identity Female 04/23/2018 4:04 PM CHEMISTRY ASSOCIATE Sexual Orientation Straight 04/23/2018 4: 04 PM CHEMISTRY ASSOCIATE documented as of this encounter Plan of Treatment Upcoming Encounters Date Type Department Care Team (Late st Contact Info) Description 10/05/2024 1:00 PM CDT Virtual Visit [facility] [address] [facility] [address] [place] [phone] Farzana Sabillon MD [address] [place] [address] 10/06/2024 1:00 PM CDT Office Visit [facility] [address] [phone] Jean Guerin MD [address] [facility] [place] [address] 12/25/2024 10:30 AM CDT Office Visit [facility] [address] [place] [phone] Sobia Domingo MD [address] [facility] 215 [place] [address] documented as of this encounter Visit Diagnoses Not on filedocumented in this encounter Additional Health Concerns Infection Onset Date Last Indicated Resolved Time Rule Out COVID-19 09/12/2020 09/12/2020 09/13/2020 5:31 PM CDT Assessment Noted Time PHQ-9 Depression Total Score: 3 12/14/19 18 2:01 PM CDT documented as of this encounter Care Teams Certified Detention Deputy Relationship Specialty Start Date End Date Nilton Roach PA-C [address] [address] PCP - General Physician General Production Worker 01/02/17 03/06/23 Nilton Roach PA-C [address] [address] PCP - Assigned PCP 12/13/16 07/08/18 Mehreen Toussaint NP [address] [address] PCP - General 03/07/23 Nilton Roach PA-C [address] [place] [address] Assigned PCP 12/13/16 12/21/22 [place] [address] [place] [address] Assigned Rheumatology Provider 02/26/20 03/27/24 Gray Lora MD 909 [place] [address] Assigned Pulmonology Provider 02/26/20 05/27/21 Reginald Wen MD 4000 [place], [place] [address] Assigned Musculoskeletal Provider 05/29/20 07/19/20 Nik Bryan MD [address] [place] [address] Assigned Cancer Care Provider 02/26/20 11/17/21 Tracie Godinez MD [address] [address] Assigned Musculoskeletal Provider 05/22/20 05/28/20 Reginald Wen MD 4000 [place] [address] Assigned Musculoskeletal Provider 02/26/20 05/21/20 Keegan Mcdonald MD [address] [place] [address] Assigned Pulmonology Provider 07/09/21 09/02/21 Keegan Mcdonald MD [address] [place] [address] Assigned Pulmonology Provider 12/30/21 05/03/23 Jean Guerin MD [address] [place] [address] Assigned PCP 12/22/22 05/29/23 Nilton Roach PA-C [address] [address] Assigned PCP 05/30/23 02/25/24 Farzana Sabillon MD [address] [place], [place] [address] Assigned Endocrinology Provider 08/27/23 [place] [address] [facility] [place] [place] [address] Assigned Rheumatology Provider 03/28/24 06/27/24 Jean Guerin MD [address] [facility] [address] [place] [address] Critical Care 06/12/24 Sobia Domingo MD [address] [place] [address] Assigned Rheumatology Provider 06/28/24 Carleen Garcia EP [facility] [address] [facility] [place] [address] Cardiac Rehabilitation Therapist 06/30/24 Kimberlee Logan RP Pharmacist Pharmacist 07/01/24 Kimberlee Logan RPH Assigned MTM Pharmacist 07/26/24 documented as of this encounter
--- OUTSIDE RECORDS SUMMARY | 2024-08-12 20:16 | XMS_ITS | Encounter Summary ---
Author Organization [facility] Address [address] [place] [address] Care Team Providers Care Nursing Care Attendant Name Role Phone Nilton Roach PA-C Primary Care Provider Nilton Roach PA-C Unavailable [phone] Nilton Roach PA-C Unavailable +[phone] Betty Gupta MD Unavailable +[phone] Gray Lora MD Unavailable +[phone] Reginald Wen MD Unavailable +[phone] Nik Bryan MD Unavailable Tracie Godinez MD Unavailable + [phone] Reginald Wen MD Unavailable +[phone] Keegan Mcdonald MD Unavailable +[phone] Keegan Mcdonald MD Unavailable +[phone] Jean Guerin MD Unavailable + [phone] Mehreen Toussaint NP Primary Care Provider Nilton Roach PA-C Unavailable +[phone] Farzana Sabillon MD Unavailable +[phone] Saroj Romeo MD Unavailable eJan Guerin MD Unavailable + [phone] Sobia Domingo MD Unavailable Carleen Garcia KP Unavailable +[phone] Kimberlee Logan [facility] Unavailable Unavailable DesmondKimberlee balbuena [facility] Unavailable Unavailable Encounter Details Date Type Department Care Team (Late st Contact Info) Description 09/23/[address] [facility] [address] [place] [address] [facility] Social History Tobacco Use Types Packs/Day Years Used Date Smoking Tobacco: Some Days Cigarettes Smokeless Tobacco: Never Comments:Occasional Alcohol Use Standard Drinks/Week Comments No 0 (1 standard drink = 0.6 oz pur e alcohol) Comments No Sex and Gender Information Value Date Recorded Sex Assigned at Female 04/23/2018 4:04 PM FOOD CHECKERS AND CASHIERS SUPERVISOR Legal Sex Female 9:39 AM FOOD CHECKERS AND CASHIERS SUPERVISOR Gender Identity Female 04/23/2018 4:04 PM FOOD CHECKERS AND CASHIERS SUPERVISOR Sexual Orientation Straight 04/23/2018 4: 04 PM FOOD CHECKERS AND CASHIERS SUPERVISOR documented as of this encounter Plan of Treatment Upcoming Encounters Date Type Department Care Team (Late st Contact Info) Description 10/05/2024 1:00 PM CDT Virtual Visit [facility] [address] [place] [phone] Farzana Sabillon MD [address] [place], [place] [address] 10/06/2024 1:00 PM CDT Office Visit [facility] [address] [phone] Jean Guerin MD [address] [place] [address] 12/25/2024 10:30 AM CDT Office Visit [facility] [address] 200 [place] [phone] Sobia Domingo MD [address] [place] [address] documented as of this encounter Visit Diagnoses Not on filedocumented in this encounter Additional Health Concerns Infection Onset Date Last Indicated Resolved Time Rule Out COVID-19 09/12/2020 09/12/2020 09/13/2020 5:31 PM CDT documented as of this encounter Care Teams Nursing Care Attendant Relationship Specialty Start Date End Date Nilton Roach PA-C [address] [address] PCP - General Physician Nursing Clerk 01/02/17 03/06/23 Nilton Roach PA-C [address] [address] PCP - Assigned PCP 12/13/16 07/08/18 Mehreen Toussaint NP [address] [address] PCP - General 03/07/23 Nilton Roach PA-C [address] [address] Assigned PCP 12/13/16 12/21/22 [place] [address] [place] [address] Assigned Rheumatology Provider 02/26/20 03/27/24 Gray Lora MD 909 [place] [address] Assigned Pulmonology Provider 02/26/20 05/27/21 Reginald Wen MD 4000 [place], [place] [address] Assigned Musculoskeletal Provider 05/29/20 07/19/20 Nik Bryan MD 909 [place], [place] [address] Assigned Cancer Care Provider 02/26/20 11/17/21 Tracie Godinez MD [address] [address] Assigned Musculoskeletal Provider 05/22/20 05/28/20 Reginald Wen MD 4000 [place] [address] Assigned Musculoskeletal Provider 02/26/20 05/21/20 Keegan Mcdonald MD [address] [place], [place] [address] Assigned Pulmonology Provider 07/09/21 09/02/21 Keegan Mcdonald MD [address] [place], [place] [address] Assigned Pulmonology Provider 12/30/21 05/03/23 Jean Guerin MD [address] [place] [address] Assigned PCP 12/22/22 05/29/23 Nilton Roach PA-C [address], [place] [address] Assigned PCP 05/30/23 02/25/24 Farzana Sabillon MD [address] [place], [place] [address] Assigned Endocrinology Provider 08/27/23 [place] [address] [place] [address] Assigned Rheumatology Provider 03/28/24 06/27/24 Jean Guerin MD [address] [place] [address] Critical Care 06/12/24 Sobia Domingo MD [address] [place] [address] Assigned Rheumatology Provider 06/28/24 Carleen Garcia EP [facility] [address] [place] [address] Cardiac Rehabilitation Therapist 06/30/24 Kimberlee Logan RP Pharmacist Pharmacist 07/01/24 Kimberlee Logan RP Assigned MTM Pharmacist 07/26/24 documented as of this encounter
--- OUTSIDE RECORDS SUMMARY | 2024-08-12 20:16 | XMS_ITS | Encounter Summary ---
Author Organization [facility] Address [address] [place] [address] Care Team Providers Care Balloon Dipper Name Role Phone Nilton Roach PA-C Primary Care Provider Nilton Roach PA-C Unavailable [phone] Nilton Roach PA-C Unavailable [phone] Betty Gupta MD Unavailable +[phone] Gray Lora MD Unavailable +[phone] Reginald Wen MD Unavailable +[phone] Nik Bryan MD Unavailable Tracie Godinez MD Unavailable + [phone] Reginald Wen MD Unavailable +[phone] Keegan Mcdonald MD Unavailable +[phone] Keegan Mcdonald MD Unavailable +[phone] Jean Guerin MD Unavailable + [phone] Mehreen Toussaint NP Primary Care Provider [phone] Nilton Roach PA-C Unavailable +[phone] Farzana Sabillon MD Unavailable +[phone] Saroj Romeo MD Unavailable Jean Guerin MD Unavailable + [phone] Sobia Domingo MD Unavailable Carleen Garcia KP Unavailable +[phone] DesmondKimberlee balbuena [facility] Unavailable Unavailable DesmondKimberlee balbuena [facility] Unavailable Unavailable Reason for Visit * Reason Comments Medication Refill Encounter Details Date Type Department Care Team (Late st Contact Info) Description 03/17/2018 Refill [facility] [address] [place] [address] [place] [address] [place] [address] Medication Refill Social History Tobacco Use Types Packs/Day Years Used Date Smoking Tobacco: Some Days Cigarettes Smokeless Tobacco: Never Comments:Occasional Alcohol Use Standard Drinks/Week Comments No 0 (1 standard drink = 0.6 oz pur e alcohol) Comments No Sex and Gender Information Value Date Recorded Sex Assigned at Female 04/23/2018 4:04 PM SENSITOMETRIST Legal Sex Female 9:39 AM SENSITOMETRIST Gender Identity Female 04/23/2018 4:04 PM SENSITOMETRIST Sexual Orientation Straight 04/23/2018 4: 04 PM SENSITOMETRIST documented as of this encounter Miscellaneous Notes * Telephone Encounter - Adrianne Garner RN - 03/18/2018 10:06 AM SENSITOMETRIST Faxed refill request [facility] Medication requested: Plaquenil Prescription Written: 11/18/17, discontinued on 12/08/17 for allergic response Last qty: 60, one refill Pt's last office visit: 02/21/18 Next scheduled office visit: 05/21/18 Last ophthalmology visit: Per last note If she will be continued on Plaquenil long term acute care registered nurse will do eye exam in 3 - [...] 07/10/2017 3.7 3.4 - 5.0 g/dL Final ITOMETRIST documented in this encounter Plan of Treatment Upcoming Encounters Date Type Department Care Team (Late st Contact Info) Description 10/05/2024 1:00 PM CDT Virtual Visit [facility] [address] [facility] [address] [place] [address] Farzana Sabillon MD [address] [place], [place] [address] 10/06/2024 1:00 PM CDT Office Visit [facility] [address] [address] Jean Guerin MD [address] [place] [address]39[address] 12/25/2024 10:30 AM CDT Office Visit [facility] [address] [place] [phone] Sobia Domingo MD [address] [facility] 215 [place] [address] documented as of this encounter Visit Diagnoses Diagnosis Systemic lupus erythematosus, unspecified SLE type, unspecified organ involvement status (H) documented in this encounter Additional Health Concerns Infection Onset Date Last Indicated Resolved Time Rule Out COVID-19 09/12/2020 09/12/2020 09/13/2020 5:31 PM CDT Assessment Noted Time PHQ-9 Depression Total Score: 3 12/14/19 18 2:01 PM CDT documented as of this encounter Care Teams Balloon Dipper Relationship Specialty Start Date End Date Nilton Roach PA-C [address] [address] PCP - General Physician Compressor Repairer 01/02/17 03/06/23 Nilton Roach PA-C [address] [address] PCP - Assigned PCP 12/13/16 07/08/18 Mehreen Toussaint NP [address] [address] PCP - General 03/07/23 Nilton Roach PA-C [address] [address] Assigned PCP 12/13/16 12/21/22 [place] [address] [place] [address] Assigned Rheumatology Provider 02/26/20 03/27/24 Gray Lora MD [address] [place] [address] Assigned Pulmonology Provider 02/26/20 05/27/21 Reginald Wen MD [address] [place] [address] Assigned Musculoskeletal Provider 05/29/20 07/19/20 Nik Bryan MD [address] [place] [address] Assigned Cancer Care Provider 02/26/20 11/17/21 Tracie Godinez MD [address] [place] [address] Assigned Musculoskeletal Provider 05/22/20 05/28/20 Reginald Wen MD [address] [place] [address] Assigned Musculoskeletal Provider 02/26/20 05/21/20 Keegan Mcdonald MD [address] [place] [address] Assigned Pulmonology Provider 07/09/21 09/02/21 Keegan Mcdonald MD [address] [place] 34[address]45 Assigned Pulmonology Provider 12/30/21 05/03/23 Jean Guerin MD [address] [place] [address] Assigned PCP 12/22/22 05/29/23 Nilton Roach PA-C [address] [place] [address] Assigned PCP 05/30/23 02/25/24 Farzana Sabillon MD [address] [place] [address] Assigned Endocrinology Provider 08/27/23 [place] [address] [place] [address] Assigned Rheumatology Provider 03/28/24 06/27/24 Jean Guerin MD [address] [facility] [address] Critical Care 06/12/24 Sobia Domingo MD [address] [place] [address] Assigned Rheumatology Provider 06/28/24 Carleen Garcia EP [facility] [address] [place] [address] Cardiac Rehabilitation Therapist 06/30/24 Kimberlee Logan RPH Pharmacist Pharmacist 07/01/24 Kimberlee Logan RPH Assigned MTM Pharmacist 07/26/24 documented as of this encounter
--- OUTSIDE RECORDS SUMMARY | 2024-08-12 20:16 | XMS_ITS | Encounter Summary ---
Author Organization [facility] Address [address] [place] [address] Care Team Providers Care Cured Meats Supervisor Name Role Phone Nilton Roach PA-C Primary Care Provider Nilton Roach PA-C Unavailable [phone] Nilton Roach PA-C Unavailable [phone] Betty Gupta MD Unavailable [phone] Gray Lora MD Unavailable +[phone] Reginald Wen MD Unavailable +[phone] Nik Bryan MD Unavailable Tracie Godinez MD Unavailable + [phone] Reginald Wen MD Unavailable +[phone] Keegan Mcdonald MD Unavailable [phone] Keegan Mcdonald MD Unavailable +[phone] Jean Guerin MD Unavailable + [phone] Mehreen Toussaint NP Primary Care Provider Nilton Roach PA-C Unavailable +[phone] Farzana Sabillon MD Unavailable +[phone] Saroj Romeo MD Unavailable Jean Guerin MD Unavailable + [phone] Sobia Domingo MD Unavailable Carleen Garcia EP Unavailable DesmondKimberlee balbuena [facility] Unavailable Unavailable DesmondKimberlee balbuena [facility] Unavailable Unavailable Reason for Visit * Reason Onset Date Comments Refill Request 10/13/2017 Ipratropium Encounter Details Date Type Department Care Team (Late st Contact Info) Description 10/13/2017 MyC Refill [facility] Emergency Dept [address] [place] [phone] Robin Espinal MD [address] [place] [address] Refill Request (Ipratropium) Social History Tobacco Use Types Packs/Day Years Used Date Smoking Tobacco: Some Days Cigarettes Smokeless Tobacco: Never Comments:Occasional Alcohol Use Standard Drinks/Week Comments No 0 (1 standard drink = 0.6 oz pur e alcohol) Comments No Sex and Gender Information Value Date Recorded Sex Assigned at Female 04/23/2018 4:04 PM TIE MILL OPERATOR Legal Sex Female 9:39 AM TIE MILL OPERATOR Gender Identity Female 04/23/2018 4:04 PM TIE MILL OPERATOR Sexual Orientation Straight 04/23/2018 4: 04 PM TIE MILL OPERATOR documented as of this encounter Miscellaneous Notes * Telephone Encounter - Sandi Garcia RN - 10/14/2017 2:20 PM CDT Ipratropium Prescription approved per [facility] Refill Protocol. Sandi Garcia RN, BSN * Telephone Encounter - Hortensia Hardy MA - 10/14/2017 8:03 AM CDTMessage from [facility]: Original authorizing provider: MD Keila Prater would like a refill of the following medications: ipratropium - albuterol 0.5 mg/2.5 mg/3 mL (DUONEB) 0.5-2.5 (3) MG/3ML neb solution [Robin Espinal MD] Preferred pharmacy: [facility] [id number] [facility] [address] [place] Comment: Medication renewals requested in this message routed to other providers: albuterol (PROAIR HFA/PROVENTIL HFA/VENTOLIN HFA) 108 (90 BASE) MCG/ACT Inhaler [Nilton Roach PA-C] documented in this encounter Plan of Treatment Upcoming Encounters Date Type Department Care Team (Late st Contact Info) Description 10/05/2024 1:00 PM CDT Virtual Visit [facility] [address] [facility] [address] [place] [address] Farzana Sabillon MD [address] [place], [place] [address] 10/06/2024 1:00 PM CDT Office Visit [facility] [address] [address] Jean Guerin MD 0825 [place] [address] 12/25/2024 10:30 AM CDT Office Visit [facility] [address] 200 [place] [phone] Sobia Domingo MD [address] [address] [place], [place] [address] documented as of this encounter Visit Diagnoses Diagnosis COPD exacerbation (H) Obstructive chronic bronchitis with exacerbation documented in this encounter Additional Health Concerns Infection Onset Date Last Indicated Resolved Time Rule Out COVID-19 09/12/2020 09/12/2020 09/13/2020 5:31 PM CDT documented as of this encounter Care Teams Cured Meats Supervisor Relationship Specialty Start Date End Date Nilton Roach PA-C [address] [address] PCP - General Physician Retail Salesperson 01/02/17 03/06/23 Nilton Roach PA-C [address] [address] PCP - Assigned PCP 12/13/16 07/08/18 Mehreen Toussaint, GURJIT [address] [address] PCP - General 03/07/23 Nilton Roach PA-C [address] [address] Assigned PCP 12/13/16 12/21/22 [place] [address] [facility] [place] [address] Assigned Rheumatology Provider 02/26/20 03/27/24 Gray Lora MD [address] [place] [address]57[address] Assigned Pulmonology Provider 02/26/20 05/27/21 Reginald Wen MD [address] [place], [place] [address] Assigned Musculoskeletal Provider 05/29/20 07/19/20 Nik Bryan MD [address] [place] [address] 438785 Assigned Cancer Care Provider 02/26/20 11/17/21 Tracie Godinez MD [address] [facility] 100 [place] [address] Assigned Musculoskeletal Provider 05/22/20 05/28/20 Reginald Wen MD 4000 [place], [place] [address] Assigned Musculoskeletal Provider 02/26/20 05/21/20 Keegan Mcdonald MD [address] [place] [address] Assigned Pulmonology Provider 07/09/21 09/02/21 Keegan Mcdonald MD [address] [place] [address]25 Assigned Pulmonology Provider 12/30/21 05/03/23 Jean Guerin MD [address] [facility] [place] [address] Assigned PCP 12/22/22 05/29/23 Nilton Roach PA-C [address] [address] Assigned PCP 05/30/23 02/25/24 Farzana Sabillon MD [address] [place], [place] [address] Assigned Endocrinology Provider 08/27/23 [place] [address] [place] [address] Assigned Rheumatology Provider 03/28/24 06/27/24 Jean Guerin MD [address] [place] [place] [address] Critical Care 06/12/24 Sobia Domingo MD [address] [place] [address] Assigned Rheumatology Provider 06/28/24 Carleen Garcia EP [facility] [address] [place] [place] [address] Cardiac Rehabilitation Therapist 06/30/24 Kimberlee Logan [facility] Pharmacist Pharmacist 07/01/24 Kimberlee Logan [facility] Assigned MTM Pharmacist 07/26/24 documented as of this encounter
--- OUTSIDE RECORDS SUMMARY | 2024-08-12 20:16 | XMS_ITS | Encounter Summary ---
Author Organization [facility] Address [address] [place] [address] Care Team Providers Care Hr Advisor Name Role Phone Betty Gupta MD Unavailable [phone] Mehreen Toussaint NP Primary Care Provider Nilton Roach PA-C Unavailable +[phone] Farzana Sabillon MD Unavailable [phone] Saroj Romeo MD Unavailable Jean Guerin MD Unavailable +- [phone] Sobia Domingo MD Unavailable Carleen Garcia Unavailable +[phone] Kimberlee Logan [facility] Unavailable Unavailable Kimberlee Logan [facility] Unavailable Unavailable Encounter Details Date Type Department Care Team (Late st Contact Info) Description 10/01/2023 MyC Medical Advice [facility] [address] [place] [address] Aranza Morales, MADAN Social History Tobacco Use Types Packs/Day Years [...] Sex Assigned at Female 04/23/2018 4:04 PM ASTRONOMY DEPARTMENT CHAIR Legal Sex Female 9:39 AM ASTRONOMY DEPARTMENT CHAIR Gender Identity Female 04/23/2018 4:04 PM ASTRONOMY DEPARTMENT CHAIR Sexual Orientation Straight 04/23/2018 4: 04 PM ASTRONOMY DEPARTMENT CHAIR documented as of this encounter Plan of Treatment Upcoming Encounters Date Type Department Care Team (Late st Contact Info) Description 10/05/2024 1:00 PM CDT Virtual Visit [facility] [address] [place] [phone] Farzana Sabillon MD [address] 200 [place], [place] [address] 10/06/2024 1:00 PM CDT Office Visit [facility] [address] [phone] Jean Guerin MD 6401 [place] [address] 12/25/2024 10:30 AM CDT Office Visit [facility] [address] [phone] Sobia Domingo MD 606 [address] 215 [place], [place] [address] documented as of this encounter Visit Diagnoses Not on filedocumented in this encounter Additional Health Concerns Assessment Noted Time PHQ-9 Depression Total Score: 2 09/21/19 20 7:02 AM CDT documented as of this encounter Care Teams Hr Advisor Relationship Specialty Start Date End Date Mehreen Toussaint NP [address] [address] PCP - General 03/07/23 [place] [address] [place] [address] Assigned Rheumatology Provider 02/26/20 03/27/24 Nilton Roach PA-C [address] [place] [address] Assigned PCP 05/30/23 02/25/24 Farzana Sabillon MD [address] [place] [address] Assigned Endocrinology Provider 08/27/23 [place] [address] [place] [address] Assigned Rheumatology Provider 03/28/24 06/27/24 Jean Guerin MD [address] [place] [address] Critical Care 06/12/24 Sobia Domingo MD [address] [place] [address] Assigned Rheumatology Provider 06/28/24 Carleen Garcia EP [facility] [address] [address] Cardiac Rehabilitation Therapist 06/30/24 Kimberlee Logan RP Pharmacist Pharmacist 07/01/24 Kimberlee Logan RPH Assigned MTM Pharmacist 07/26/24 documented as of this encounter
--- OUTSIDE RECORDS SUMMARY | 2024-08-12 20:16 | XMS_ITS | Encounter Summary ---
Author Organization [facility] Address [address] [place] [address] Care Team Providers Care Plodding Machine Operator Name Role Phone Nilton Roach PA-C Primary Care Provider Nilton Roach PA-C Unavailable [phone] Betty Gupta MD Unavailable [phone] Gray Lora MD Unavailable +[phone] Nik Bryan MD Unavailable Keegan Mcdonald MD Unavailable +[phone] Keegan Mcdonald MD Unavailable +[phone] Jean Guerin MD Unavailable + [phone] Mehreen Toussaint NP Primary Care Provider Nilton Roach PA-C Unavailable +[phone] Farzana Sabillon MD Unavailable +[phone] Saroj Romeo MD Unavailable Jean Guerin MD Unavailable + [phone] Sobia Domingo MD Unavailable Carleen Garcia Unavailable +[phone] Kimberlee Logan [facility] Unavailable Unavailable Kimberlee Logan RP Unavailable Unavailable Encounter Details Date Type Department Care Team (Late st Contact Info) Description 11/11/2020 MyC Medical Advice [address] [phone] Liliane Toro, [facility] Social History Tobacco Use Types Packs/Day Years Used Date Smoking Tobacco: Former Cigarettes 1 40 0 06/06/1979 - 06/06/2019 Smokeless Tobacco: Never Comments:Occasional Alcohol Use Standard Drinks/Week Comments No 0 (1 standard drink = 0.6 oz pur e alcohol) PHQ-2 Answer Date Recorded PHQ-2 Score 0 08/05/2020 Comments No Sex and Gender Information Value Date Recorded Sex Assigned at Female 04/23/2018 4:04 PM INFORMATICS PHYSICIAN Legal Sex Female 9:39 AM INFORMATICS PHYSICIAN Gender Identity Female 04/23/2018 4:04 PM INFORMATICS PHYSICIAN Sexual Orientation Straight 04/23/2018 4: 04 PM INFORMATICS PHYSICIAN documented as of this encounter Plan of Treatment Upcoming Encounters Date Type Department Care Team (Late st Contact Info) Description 10/05/2024 1:00 PM CDT Virtual Visit [facility] [address] [facility] [address] [place] [phone] Farzana Sabillon MD [address] [facility] 200 [place], [place] [address] 10/06/2024 1:00 PM CDT Office Visit [facility] [address] [phone] Jean Guerin MD 6401 [place] [address] 12/25/2024 10:30 AM CDT Office Visit [facility] [place] 65[address] [facility] 200 [place] [phone] Soiba Domingo MD 606 [address] 215 [place], [place] [address] documented as of this encounter Visit Diagnoses Not on filedocumented in this encounter Additional Health Concerns Assessment Noted Time PHQ-9 Depression Total Score: 2 09/21/19 20 7:02 AM CDT documented as of this encounter Care Teams Plodding Machine Operator Relationship Specialty Start Date End Date Nilton Roach PA-C [address] [place] [address] PCP - General Physician Debrander 01/02/17 03/06/23 Mehreen Toussaint NP [address] [address] PCP - General 03/07/23 Nilton Roach PA-C [address] [address] Assigned PCP 12/13/16 12/21/22 [place] [address] [place] [address] Assigned Rheumatology Provider 02/26/20 03/27/24 Gray Lora MD [address] [place] [address] Assigned Pulmonology Provider 02/26/20 05/27/21 Nik Bryan MD 909 [place], [place] 4667[address] Assigned Cancer Care Provider 02/26/20 11/17/21 Keegan Mcdonald MD 6401 [place] [address] Assigned Pulmonology Provider 07/09/21 09/02/21 Keegan Mcdonald MD [address] [place] [address] Assigned Pulmonology Provider 12/30/21 05/03/23 Jean Guerin MD [address] [place] [address] Assigned PCP 12/22/22 05/29/23 Nilton Roach PA-C [address] [place], [place] [address] Assigned PCP 05/30/23 02/25/24 Farzana Sabillon MD [address] [place], [place] [address] Assigned Endocrinology Provider 08/27/23 [place] [address] [place] [address] Assigned Rheumatology Provider 03/28/24 06/27/24 Jean Guerin MD [address] [place] [address] Critical Care 06/12/24 Sobia Domingo MD [address] [place] [address] Assigned Rheumatology Provider 06/28/24 Carleen Garcia EP [facility] [address] [place] [address] Cardiac Rehabilitation Therapist 06/30/24 Kimberlee Logan RPH Pharmacist Pharmacist 07/01/24 Kimberlee Logan RPH Assigned MTM Pharmacist 07/26/24 documented as of this encounter
--- OUTSIDE RECORDS SUMMARY | 2024-08-12 20:16 | XMS_ITS | Encounter Summary ---
Author Organization [facility] Address [address] [place] [address] Care Team Providers Care Cart Attendant Name Role Phone Nilton Roach PA-C Primary Care Provider Nilton Roach PA-C Unavailable [phone] Betty Gupta MD Unavailable +[phone] Gray Lora MD Unavailable [phone] Nik Bryan MD Unavailable Keegan Mcdonald MD Unavailable Keegan Mcdonald MD Unavailable +[phone] Jean Guerin MD Unavailable + [phone] Mehreen Toussaint NP Primary Care Provider Nilton Roach PA-C Unavailable +[phone] Farzana Sabillon MD Unavailable +[phone] Saroj Romeo MD Unavailable Jean Guerin MD Unavailable + [phone] Sobia Domingo MD Unavailable Carleen Garcia Unavailable +[phone] Kimberlee Logan [facility] Unavailable Unavailable Kimberlee Logan RP Unavailable Unavailable Encounter Details Date Type Department Care Team (Late st Contact Info) Description 05/03/2021 MyC Medical Advice [facility] [place] [id number] [facility] 200 [place] [address] [place] [address] [place] [address] Social History Tobacco Use Types Packs/Day Years Used Date Smoking Tobacco: Former Cigarettes 1 40 0 06/06/1979 - 06/06/2019 Smokeless Tobacco: Never Comments:Occasional Alcohol Use Standard Drinks/Week Comments No 0 (1 standard drink = 0.6 oz pur e alcohol) PHQ-2 Answer Date Recorded PHQ-2 Score 0 04/05/2021 Comments No Sex and Gender Information Value Date Recorded Sex Assigned at Female 04/23/2018 4:04 PM JEWELRY BENCH MOLDER Legal Sex Female 9:39 AM JEWELRY BENCH MOLDER Gender Identity Female 04/23/2018 4:04 PM JEWELRY BENCH MOLDER Sexual Orientation Straight 04/23/2018 4: 04 PM JEWELRY BENCH MOLDER COVID-19 Exposure Response Date Recorded In the last month, have you been in contact with someone who was confirmed or suspected to have Coronavirus / COVID-19? No / Unsure 04/05/2021 3:25 PM JEWELRY BENCH MOLDER documented as of this encounter Plan of Treatment Upcoming Encounters Date Type Department Care Team (Late Contact Info) Description 10/05/2024 1:00 PM CDT Virtual Visit [facility] [address] [facility] [address] [place] [address] Farzana Sabillon MD [address] [facility] [address] [place], [place] [address] 10/06/2024 1:00 PM CDT Office [facility] [address] [address] Jean Guerin MD 6401 [place], [place] [address] 12/25/2024 10:30 AM CDT Office Visit [facility] [address] [place] [address] [address] [place] [phone] Sobia Domingo MD [address] [address] documented as of this encounter Visit Diagnoses Not on filedocumented in this encounter Additional Health Concerns Assessment Noted Time PHQ-9 Depression Total Score: 2 09/21/19 20 7:02 AM CDT documented as of this encounter Care Teams Cart Attendant Relationship Specialty Start Date End Date Nilton Roach PA-C [address] [place] [address] PCP - General Physician Instructional Resource Teacher 01/02/17 03/06/23 Mehreen Toussaint NP [address] [address] PCP - General 03/07/23 Nilton Roach PA-C [address] [place] [address] Assigned PCP 12/13/16 12/21/22 [place] [address] [place] [address] Assigned Rheumatology Provider 02/26/20 03/27/24 Gray Lora MD [address] [place] [address] Assigned Pulmonology Provider 02/26/20 05/27/21 Nik Bryan MD [address] [place] [address] Assigned Cancer Care Provider 02/26/20 11/17/21 Keegan Mcdonald MD [address] [place] [address] Assigned Pulmonology Provider 07/09/21 09/02/21 Keegan Mcdonald MD [address] [place] [address] Assigned Pulmonology Provider 12/30/21 05/03/23 Jean Guerin MD [address] [place] [address] Assigned PCP 12/22/22 05/29/23 Nilton Roach PA-C [address] [place] [address] Assigned PCP 05/30/23 02/25/24 Farzana Sabillon MD [address] [place] [address] Assigned Endocrinology Provider 08/27/23 [place] [address] [place] [address] Assigned Rheumatology Provider 03/28/24 06/27/24 Jean Guerin MD [address] [place] [address] Critical Care 06/12/24 Sobia Domingo MD [address] [place] [address] Assigned Rheumatology Provider 06/28/24 Carleen Garcia EP [place] [address] [address] Cardiac Rehabilitation Therapist 06/30/24 Kimberlee Logan RP Pharmacist Pharmacist 07/01/24 Kimberlee Logan RPH Assigned MTM Pharmacist 07/26/24 documented as of this encounter
--- OUTSIDE RECORDS SUMMARY | 2024-08-12 20:16 | XMS_ITS | Patient Health Record ---
Author Organization [facility] Address [address] [place] [address] [address] [place] [address] Care Team Providers Care Lamp Decorator Name Role Phone ToussaintMehreen Primary Care Provider Unavaila tyrese HendricksoneJareth Unavailable [phone] Allergies Allergen (clinical drug ingredient) Drug/Non Drug Allergy documented on EMR Reaction Allergy Type Onset Date Status acetaminophen Tylenol Unknown Drug Allergy Act ernie warfarin Warfarin Unknown Drug Allergy Active Reason For Referral No Information Medications Medication SIG (Take, Route, Frequency, Duration) Notes Start Date End Date Status Spiriva HandiHaler 18 MCG 1 capsule by i nhaling the contents of the capsule using the HandiHaler device Inhalation Once a day Active Symbicort 160-4.5 MCG/ACT 2 puffs Inhala tion Twice a day Active Albuterol Active Xarelto 20 MG 1 tablet with food [...] O rally Three times a day Active tiZANidine HCl 4 MG 1 tablet as needed O rally once a day Active Social History Tobacco Use: Social History Observation Description Date Details (start date - stop date) Never Smoker NA - NA Tobacco Use/Smoking: Question Answer Notes Are you a nonsmoker Alcohol Screen Question Answer Notes Did you have a drink containing alcohol in the p ast year? No Points 0 Interpretation Negative Problems Problem Type SNOMED Code ICD Code Onset Dates Problem Status W/U Status Risk Notes Problem Chronic pain (66983473) Other chronic pain (G89.29) Active confirmed Problem Lumbar radiculopathy (512446357) Radiculopath y, lumbar region (M54.16) Active confirmed Plan Of Treatment No Information Insurance Providers Payer Name Payer Address Payer Phone Subscriber Number Group Number Insured Name Patient Relationship to Insured Coverage Start Date Coverage End Date Medicare Part B [employer] [address] [place] [phone] [id number] Keila Tate Self - patient is the insured [facility] [address] [address] [place] [address] [id number] Keila Tate Self - patient is the insured Medical (General) History Medical History History ICD Code asthma COPD frequent infections hepatitis B migraine headaches osteoporosis lupus hx of pulmonary embolism Surgical History Surgery Date(Month/Year) Left knee arthroplasty Left/Right wrist surgery Hospitalization History Reason Date(Month/Year) surgical reasons
--- OUTSIDE RECORDS SUMMARY | 2024-08-12 20:16 | XMS_ITS | Referral Summary ---
Author Organization [facility] Address [address] [place] [address] Care Team Providers Care Social Contact Worker Name Role Phone Nilton Roach Primary Care Provider [phone] Allergies Active Allergy Reactions Criticality Noted Date [...] Comments Blood Pressure 131/80 06/30/2019 2:47 PM DIGITAL ASSET SPECIALIST Pulse 102 06/30/2019 2:49 PM DIGITAL ASSET SPECIALIST Temperature 36.7 C (98 F) 06/30/2019 2:49 PM DIGITAL ASSET SPECIALIST Respiratory Rate 16 06/30/2019 2:49 PM DIGITAL ASSET SPECIALIST Oxygen Saturation 91% 06/30/2019 2:49 PM DIGITAL ASSET SPECIALIST Inhaled Oxygen Concentration - - Weight 44.1 kg (97 lb 4.8 oz) 06/30/2019 6:00 AM DIGITAL ASSET SPECIALIST Height 152.4 cm (5') 06/27/2019 5:45 AM DIGITAL ASSET SPECIALIST Body Mass Index 19 06/27/2019 5:45 AM DIGITAL ASSET SPECIALIST Plan of Treatment Not on file Insurance [facility] [employer] [facility] Advance Directives For more information, please contact: [phone] * Full Code (Latest Code Status on File) Date Activated Date Inactivated Comments 06/27/2019 6:20 AM 06/30/2019 10:48 PM Question Answer Comments How was code status determined? Patient Care Teams Social Contact Worker Relationship Specialty Start Date End Date Nilton Roach PA [address] [place] [address] [address] [place] [address] PCP - General 02/20/17
--- OUTSIDE RECORDS SUMMARY | 2024-08-12 20:16 | XMS_ITS | Encounter Summary ---
Author Organization [facility] Address [address] [place] [address] Care Team Providers Care Pond Worker Name Role Phone Betty Gupta MD Unavailable [phone] Mehreen Toussaint NP Primary Care Provider Nilton Roach PA-C Unavailable [phone] Farzana Sabillon MD Unavailable [phone] Saroj Romeo MD Unavailable Jean Guerin MD Unavailable +- [phone] Sobia Domingo MD Unavailable Carleen Garcia Unavailable [phone] Kimberlee Logan [facility] Unavailable Unavailable Kimberlee Logan [facility] Unavailable Unavailable Encounter Details Date Type Department Care Team (Late st Contact Info) Description 08/13/2023 MyC Medical Advice [facility] [address] [place] [address] Aranza Morales, MADAN Social History [...] Assigned at Female 04/23/2018 4:04 PM MANAGER HUMAN CAPITAL Legal Sex Female 9:39 AM MANAGER HUMAN CAPITAL Gender Identity Female 04/23/2018 4:04 PM MANAGER HUMAN CAPITAL Sexual Orientation Straight 04/23/2018 4: 04 PM MANAGER HUMAN CAPITAL documented as of this encounter Plan of Treatment Upcoming Encounters Date Type Department Care Team (Late st Contact Info) Description 10/05/2024 1:00 PM CDT Virtual Visit [facility] [address] [place] [address] [place] [phone] Farzana Sabillon MD [address] [facility] [address] [place], [place] [address] 10/06/2024 1:00 PM CDT Office Visit [facility] [address] [phone] Jean Guerin MD [address] [place] [address] 12/25/2024 10:30 AM CDT Office Visit [facility] [address] [phone] Sobia Domingo MD 606 [facility] 215 [place], [place] [address] documented as of this encounter Visit Diagnoses Not on filedocumented in this encounter Additional Health Concerns Assessment Noted Time PHQ-9 Depression Total Score: 2 09/21/19 20 7:02 AM CDT documented as of this encounter Care Teams Pond Worker Relationship Specialty Start Date End Date Mehreen Toussaint NP [address] [address] PCP - General 03/07/23 [place] [address] [place] [address] Assigned Rheumatology Provider 02/26/20 03/27/24 Nilton Roach PA-C [address] [place] [address] Assigned PCP 05/30/23 02/25/24 Farzana Sabillon MD [address] [place], [place] [address] Assigned Endocrinology Provider 08/27/23 [place] [address] [place] [address] Assigned Rheumatology Provider 03/28/24 06/27/24 Jean Guerin MD [address] [place] [address] Critical Care 06/12/24 Sobia Domingo MD [address] [place] [address] Assigned Rheumatology Provider 06/28/24 Carleen Garcia [facility] [address] [place] [address] Cardiac Rehabilitation Therapist 06/30/24 Kimberlee Logan RP Pharmacist Pharmacist 07/01/24 Kimberlee Logan RPH Assigned MTM Pharmacist 07/26/24 documented as of this encounter
--- OUTSIDE RECORDS SUMMARY | 2024-08-12 20:16 | XMS_ITS | Encounter Summary ---
Author Organization [facility] Address [address] [place] [address] Care Team Providers Care Broke Beater Operator Name Role Phone Nilton Roach PA-C Primary Care Provider Nilton Roach PA-C Unavailable [phone] Betty Gupta MD Unavailable [phone] Gray Lora MD Unavailable [phone] Nik Bryan MD Unavailable Keegan Mcdonald MD Unavailable Keegan Mcdonald MD Unavailable [phone] Jean Guerin MD Unavailable + [phone] Mehreen Toussaint NP Primary Care Provider [phone] Nilton Roach PA-C Unavailable [phone] Farzana Sabillon MD Unavailable [phone] Saroj Romeo MD Unavailable Jean Guerin MD Unavailable + [phone] Sobia Domingo MD Unavailable Carleen Garcia Unavailable [phone] Kimberlee Logan [facility] Unavailable Unavailable Kimberlee Logan RP Unavailable Unavailable Encounter Details Date Type Department Care Team (Late st Contact Info) Description 05/11/2021 MyC Medical Advice [facility] [address] [facility], [address] [place] [phone] Chana Barker Social History Tobacco Use Types [...] Sex Assigned at Female 04/23/2018 4:04 PM MAILROOM COURIER Legal Sex Female 9:39 AM MAILROOM COURIER Gender Identity Female 04/23/2018 4:04 PM MAILROOM COURIER Sexual Orientation Straight 04/23/2018 4: 04 PM MAILROOM COURIER documented as of this encounter Plan of Treatment Upcoming Encounters Date Type Department Care Team (Late st Contact Info) Description 10/05/2024 1:00 PM CDT Virtual Visit [facility] [address] [place] [phone] Farzana Sabillon MD [address] [facility] 200 [place], [place] [address] 10/06/2024 1:00 PM CDT Office Visit [facility] [address] [phone] Jean Guerin MD 6401 [place] [address] 12/25/2024 10:30 AM CDT Office Visit [facility] [place] [address] [place] [address] [address] [place] [phone] Sobia Domingo MD [address] [place] [address] 215 [place], [place] [address] documented as of this encounter Visit Diagnoses Not on filedocumented in this encounter Additional Health Concerns Assessment Noted Time PHQ-9 Depression Total Score: 2 09/21/19 20 7:02 AM CDT documented as of this encounter Care Teams Broke Beater Operator Relationship Specialty Start Date End Date Nilton Roach PA-C [address] [address] PCP - General Physician Office Administration 01/02/17 03/06/23 Mehreen Toussaint NP [address] [address] PCP - General 03/07/23 Nilton Roach PA-C [address] [address] Assigned PCP 12/13/16 12/21/22 [place] [address] [facility] [place] [address] Assigned Rheumatology Provider 02/26/20 03/27/24 Gray Lora MD [address] [place] [address] Assigned Pulmonology Provider 02/26/20 05/27/21 Nik Bryan MD [address] [place], [place] [address] Assigned Cancer Care Provider 02/26/20 11/17/21 Keegan Mcdonald MD [address] [place] [address] Assigned Pulmonology Provider 07/09/21 09/02/21 Keegan Mcdonald MD [address] [place] [address] Assigned Pulmonology Provider 12/30/21 05/03/23 Jean Guerin MD [address] [place] [address] Assigned PCP 12/22/22 05/29/23 Nilton Roach PA-C [address] [place], [place] [address] Assigned PCP 05/30/23 02/25/24 Farzana Sabillon MD [address] [place], [place] [address] Assigned Endocrinology Provider 08/27/23 [place] [address] [place] [address] Assigned Rheumatology Provider 03/28/24 06/27/24 Jean Guerin MD [address] [place] [address] Critical Care 06/12/24 Sobia Domingo MD [address] [place] [address] Assigned Rheumatology Provider 06/28/24 Carleen Garcia EP [facility] [address] [place] [address] Cardiac Rehabilitation Therapist 06/30/24 Kimberlee Logan RPH Pharmacist Pharmacist 07/01/24 Kimberlee Logan RPH Assigned MTM Pharmacist 07/26/24 documented as of this encounter
--- OUTSIDE RECORDS SUMMARY | 2024-08-12 20:16 | XMS_ITS | Encounter Summary ---
Author Organization [facility] Address [address] [place] [address] Care Team Providers Care Adult Parole Officer Name Role Phone Nilton Roach PA-C Primary Care Provider Nilton Roach PA-C Unavailable [phone] Betty Gupta MD Unavailable [phone] Gray Lora MD Unavailable [phone] Nik Bryan MD Unavailable Keegan Mcdonald MD Unavailable [phone] Keegan Mcdonald MD Unavailable [phone] Jean Guerin MD Unavailable + [phone] Mehreen Toussaint NP Primary Care Provider [phone] Nilton Roach PA-C Unavailable [phone] Farzana Sabillon MD Unavailable [phone] Saroj Romeo MD Unavailable Jean Guerin MD Unavailable + [phone] Sobia Domingo MD Unavailable Carleen Garcia Unavailable [phone] Kimberlee Logan RP Unavailable Unavailable Kimberlee Logan RP Unavailable Unavailable Reason for Visit * Reason Onset Date Comments Immunization 01/17/2021 Encounter Details Date Type Department Care Team (Late Contact Info) Description 01/17/2021 MyC Medical Advice [facility] 290 [facility] [address] [place] [phone] Nilton Roach PA-C [address] [facility] [address] [place] [address] Immunization Social History Tobacco Use Types Packs/Day Years Used Date Smoking Tobacco: Former Cigarettes 1 40 0 06/06/1979 - 06/06/2019 Smokeless Tobacco: Never Comments:Occasional Alcohol Use Standard Drinks/Week Comments No 0 (1 standard drink = 0.6 oz pur e alcohol) PHQ-2 Answer Date Recorded PHQ-2 Score 0 12/07/2020 Comments No Sex and Gender Information Value Date Recorded Sex Assigned at Female 04/23/2018 4:04 PM PROPERTY ACCOUNTANT Legal Sex Female 9:39 AM PROPERTY ACCOUNTANT Gender Identity Female 04/23/2018 4:04 PM PROPERTY ACCOUNTANT Sexual Orientation Straight 04/23/2018 4: 04 PM PROPERTY ACCOUNTANT COVID-19 Exposure Response Date Recorded In the last month, have you been in contact with someone who was confirmed or suspected to have Coronavirus / COVID-19? No / Unsure 01/10/2021 12:59 PM CDT documented as of this encounter Plan of Treatment Upcoming Encounters Date Type Department Care Team (Late Contact Info) Description 10/05/2024 1:00 PM CDT Virtual Visit [facility] [address] [place] [address] Farzana Sabillon MD [address] [facility] 200 [place], [place] [address] 10/06/2024 1:00 PM CDT Office Visit [facility] [address] [address] Jean Guerin MD [address] [place] [address] 12/25/2024 10:30 AM CDT Office Visit [address] [place] [phone] Sobia Domingo MD [address] [facility] 215 [place] [address] documented as of this encounter Visit Diagnoses Not on filedocumented in this encounter Additional Health Concerns Assessment Noted Time PHQ-9 Depression Total Score: 2 09/21/19 7:02 AM CDT documented as of this encounter Care Teams Adult Parole Officer Relationship Specialty Start Date End Date Nilton Roach PA-C [address] [place] [address] PCP - General Physician Division Sales Manager 01/02/17 03/06/23 Mehreen Toussaint NP [address] [address] PCP - General 03/07/23 Nilton Roach PA-C [address] [place] [address] Assigned PCP 12/13/16 12/21/22 [place] [address] [place] [address] Assigned Rheumatology Provider 02/26/20 03/27/24 Gray Lora MD [address] [place] [address] Assigned Pulmonology Provider 02/26/20 05/27/21 Nik Bryan MD [address]09 [place] [address] Assigned Cancer Care Provider 02/26/20 11/17/21 Keegan Mcdonald MD [address] [place] [address] Assigned Pulmonology Provider 07/09/21 09/02/21 Keegan Mcdonald MD [address] [place] [address] Assigned Pulmonology Provider 12/30/21 05/03/23 Jean Guerin MD [address] [place] [address] Assigned PCP 12/22/22 05/29/23 Nilton Roach PA-C [address] [facility] [address] [place] [address] Assigned PCP 05/30/23 02/25/24 Farzana Sabillon MD [address] [place] [address] 200 [place] [address] Assigned Endocrinology Provider 08/27/23 [place] [address] [place] [address] Assigned Rheumatology Provider 03/28/24 06/27/24 eJan Guerin MD [address] [place] [address] Critical Care 06/12/24 Sobia Domingo MD [address] [address] Assigned Rheumatology Provider 06/28/24 Carleen Garcia EP [facility] 6401 [facility] [place] [address] Cardiac Rehabilitation Therapist 06/30/24 Kimberlee Logan RP Pharmacist Pharmacist 07/01/24 Kimberlee Logan RPH Assigned MTM Pharmacist 07/26/24 documented as of this encounter
--- OUTSIDE RECORDS SUMMARY | 2024-08-12 20:16 | XMS_ITS | Encounter Summary ---
Author Organization [facility] Address [address] [place] [address] Care Team Providers Care Apparel Designer Name Role Phone Nilton Roach PA-C Primary Care Provider Nilton Roach PA-C Unavailable [phone] Betty Gupta MD Unavailable [phone] Gray Lora MD Unavailable [phone] Nik Bryan MD Unavailable Keegan Mcdonald MD Unavailable +[phone] Keegan Mcdonald MD Unavailable [phone] Jean Guerin MD Unavailable + [phone] Mehreen Toussaint NP Primary Care Provider Nilton Roach PA-C Unavailable +[phone] Farzana Sabillon MD Unavailable +[phone] Saroj Romeo MD Unavailable Jean Guerin MD Unavailable + [phone] Sobia Domingo MD Unavailable Carleen Garcia Unavailable [phone] Kimberlee Logan [facility] Unavailable Unavailable Kimberlee Logan [facility] Unavailable Unavailable Reason for Referral * Consultation (Routine) - Closed Specialty Diagnoses / Procedures Referred By Contac t Referred To Contact Ophthalmology Diagnoses Long-term use of Plaquenil Betty Gupta MD [address] [place] [address] Phone: tel: fax: [address] [address] Phone: tel: Referral ID Status Reason Start Date Expiration Date Visits Re quested Visits Authorized [id number] Closed 10/18/2020 10/18/2021 1 1 Question Answer Referral Type: Optometry/Ophthalmology Reason for Referral: Other My Clinical Question Is: Plaquenil toxicity screening Preferred Locations: [facility] Scheduling Instructions: [facility] will call you to coordinate your care as prescribed by the provider. If you don t hear from a fulfillment representative within 2 business days, please call the number listed above. Comments Please be aware that coverage of these services is subject to the terms and limitations of your health insurance plan. Call member services at your health plan with any benefit or coverage questions. [facility] will call you to coordinate your care as prescribed by the provider. If you don t hear from a fulfillment representative within 2 business days, please call the number listed above. Encounter Details Date Type Department Care Team (Late st Contact Info) Description 10/18/2020 MyC Medical Advice [address] [address] Betty Gupta MD [address] [place] [address] Long-term use of Plaquenil (Primary Dx) [...] Sex Assigned at Female 04/23/2018 4:04 PM PSYCHOLOGIST PRIVATE PRACTICE Legal Sex Female 9:39 AM PSYCHOLOGIST PRIVATE PRACTICE Gender Identity Female 04/23/2018 4:04 PM PSYCHOLOGIST PRIVATE PRACTICE Sexual Orientation Straight 04/23/2018 4: 04 PM PSYCHOLOGIST PRIVATE PRACTICE documented as of this encounter Plan of Treatment Upcoming Encounters Date Type Department Care Team (Late st Contact Info) Description 10/05/2024 1:00 PM CDT Virtual Visit [facility] [address] [place] [phone] Farzana Sabillon MD [address] [facility] 200 [place], [place] [address] 10/06/2024 1:00 PM CDT Office Visit [facility] [address] [phone] Jean Guerin MD 6401 [place] [address] 12/25/2024 10:30 AM CDT Office Visit [address] [phone] Sobia Domingo MD 606 [facility] 215 [place], [place] [address] Scheduled Referrals Name Type Priority Associated Diagnoses Orde r Schedule EYE ADULT REFERRAL Referral Routine Long-term use of Plaquenil Expected: 10/18/2020, Expires: 10/18/2021 documented as of this encounter Visit Diagnoses Diagnosis Long-term use of Plaquenil- Primary documented in this encounter Additional Health Concerns Assessment Noted Time PHQ-9 Depression Total Score: 2 09/21/19 20 7:02 AM CDT documented as of this encounter Care Teams Apparel Designer Relationship Specialty Start Date End Date Nilton Roach PA-C [address] [place] [address] PCP - General Physician Trick Rodeo Rider 01/02/17 03/06/23 Mehreen Toussaint NP [address] [address] PCP - General 03/07/23 Nilton Roach PA-C [address] [place] [address] Assigned PCP 12/13/16 12/21/22 [place] [address] [place] [address] Assigned Rheumatology Provider 02/26/20 03/27/24 Gray Lora MD 9 [place], [place] [address] Assigned Pulmonology Provider 02/26/20 05/27/21 Nik Bryan MD 9 [place], [place] [address] Assigned Cancer Care Provider 02/26/20 11/17/21 Keegan Mcdonald MD [address] [place] [address] Assigned Pulmonology Provider 07/09/21 09/02/21 Keegan Mcdonald MD [address] [place] [address] Assigned Pulmonology Provider 12/30/21 05/03/23 Jean Guerin MD [address] [place] [address] Assigned PCP 12/22/22 05/29/23 Nilton Roach PA-C [address] [place] [address] Assigned PCP 05/30/23 02/25/24 Farzana Sabillon MD [address] [place] [address] Assigned Endocrinology Provider 08/27/23 [place] [address] [place] [address] Assigned Rheumatology Provider 03/28/24 06/27/24 Jean Guerin MD [address] [place] [address] Critical Care 06/12/24 Sobia Domingo MD [address] [place] [address] Assigned Rheumatology Provider 06/28/24 Carleen Garcia EP [facility] [address] [place] [address] Cardiac Rehabilitation Therapist 06/30/24 Kimberlee Logan [facility] Pharmacist Pharmacist 07/01/24 Kimberlee Logan [facility] Assigned MTM Pharmacist 07/26/24 documented as of this encounter
--- NOTE | 2024-08-12 20:24 | CRLHL7_ITS ---
For Patients: As a result of the Cures Act, medical imaging exams and procedure reports are released immediately into your electronic medical record. You may view this report before your referring provider. If you have questions, please contact your health care provider. INDICATION: Chronic obstructive pulmonary disease, hypoxia TECHNIQUE: Chest radiograph 1 view COMPARISON: 06/02/2024 FINDINGS: Mediastinum: Calcified right hilar lymph nodes are noted without change. The heart silhouette is normal in size and morphology. Lung: Ill-defined airspace infiltrates are present in the right lower lung zone which may be due to pneumonia or aspiration. Severe pulmonary emphysema with pulmonary granulomas are noted without change. No sign of pleural effusion seen. No pneumothorax is identified. Bone and Soft tissue: Unremarkable for age. IMPRESSION: 1. Ill-defined airspace infiltrates are present in the right lower lung zone which may be due to pneumonia or aspiration. Dictated by Iraj Locke MD @ 08/12/2024 9:30:08 PM Dictated by: Iraj Locke MD @ 08/12/2024 21:30:21 (Electronically Signed)
--- NOTE | 2024-08-12 20:24 | ED.GENADULT ---
HPI - General Adult General Time Seen by Provider: 20:24 Date Seen: 08/12/24 Chief complaint: Shortness of Breath/Dyspnea Stated complaint: right chest pain/weak, cannot breathe Time Seen by Provider: 08/12/24 20:24 Source: patient and RN notes reviewed Mode of arrival: ambulatory Limitations: no limitations History of Present Illness HPI narrative: I was asked by nursing staff to see this 64-year-old female on arrival. Patient has known COPD and has been having increased symptoms since yesterday. She last used her DuoNeb about 6:00 p.m.. She has been coughing, short of breath. No chest pain, no edema, no fevers or chills. She has a history of smoking, is not actively smoking any longer. Her oxygenation was in the 50s with a good waveform. Nursing staff is working to establish an IV, we will be ordering another DuoNeb, IV Solu-Medrol, we will be considering moving to BiPAP immediately. Have discussed with patient and she does state if her breathing did get bad enough that she would require intubation that she would have us do this. She does however tell me that they usually just use the mask on her and that is enough. We have not hospitalized her here. She does have a history of a DVT and pulmonary embolism, is chronically anticoagulated on Xarelto. It appears that she has a history of antiphospholipid syndrome. Does have home oxygen and has been having to increase it today due to symptoms. Related Data Home Medications ?Medication ?Instructions ?Recorded ?Confirmed cholecalciferol (vitamin D3) 125 125 mcg PO HS 11/15/23 08/13/24 mcg (5,000 unit) capsule vitamin B comp and C no.3 15 mg-10 1 cap PO HS 06/02/24 08/13/24 mg-50 mg-5 mg-300 mg capsule (B Complex Plus Vitamin C) azithromycin 250 mg tablet 250 mg PO 3XW 08/13/24 08/13/24 belimumab 200 mg/mL subcutaneous 200 mg subcut Q7D 08/13/24 08/13/24 auto-injector (Benlysta) calcium carbonate (Oyster Shell 500 mg PO HS 08/13/24 08/13/24 Calcium) ipratropium 0.5 mg-albuterol 3 mg 3 ml inhalation QID PRN 08/13/24 08/13/24 (2.5 mg base)/3 mL nebulization soln magnesium oxide 400 mg PO HS 08/13/24 08/13/24 mometasone-formoterol HFA 200 2 puff inhalation BID 08/13/24 08/13/24 mcg-5 mcg/actuation aerosol inhaler (Dulera) rivaroxaban 20 mg tablet (Xarelto) 20 mg PO HS 08/13/24 08/13/24 simvastatin 10 mg tablet 10 mg PO HS 08/13/24 08/13/24 tiotropium bromide 18 mcg capsule 1 cap inhalation DAILY 08/13/24 08/13/24 with inhalation device (Spiriva with HandiHaler) tizanidine 2 mg tablet 2 mg PO TID PRN for low back pain 08/13/24 08/13/24 tizanidine 4 mg tablet 4 mg PO HS muscle spasticity 08/13/24 08/13/24 triamcinolone acetonide 0.1 % 1 applic topical BID PRN 08/13/24 08/13/24 topical cream turmeric 400 mg capsule 400 mg PO HS 08/13/24 08/13/24 Previous Rx's ?Medication ?Instructions ?Recorded albuterol sulfate 90 mcg/actuation 2 puff inhalation Q4-6H PRN 05/27/23 aerosol inhaler shortness of breath or wheezing 30 days #8.5 grams Allergies Allergy/AdvReac Type Severity Reaction Status Date / Time acetaminophen (From Tylenol) Allergy Hives Verified 08/13/24 11:43 warfarin (From Coumadin) Allergy Hives Verified 08/13/24 05:35 Review of Systems Status of ROS: Reports: 6 or more systems reviewed and unremarkable except as noted in History and below [facility] Medical History (Updated 08/14/24 @ 10:42 by Kaylin Hu MD) Palpitations ?R00.2 - Palpitations (ICD-10) Lupus ?M32.9 - Systemic lupus erythematosus, unspecified (ICD-10) SVT (supraventricular tachycardia) ?I47.10 - Supraventricular tachycardia, unspecified (ICD-10) Thoracic back pain ?M54.6 - Pain in thoracic spine (ICD-10) Anti-phospholipid syndrome ?D68.61 - Antiphospholipid syndrome (ICD-10) Asthma ?J45.909 - Unspecified asthma, uncomplicated (ICD-10) Lumbar degenerative disc disease ?M51.36 - Other intervertebral disc degeneration, lumbar region (ICD-10) COPD (chronic obstructive pulmonary disease) ?J44.9 - Chronic obstructive pulmonary disease, unspecified (ICD-10) Chronic low back pain ?M54.50 - Low back pain, unspecified (ICD-10) ?G89.29 - Other chronic pain (ICD-10) Left hip pain ?M25.552 - Pain in left hip (ICD-10) Lumbar back pain with radiculopathy affecting left lower extremity ?M54.16 - Radiculopathy, lumbar region (ICD-10) Dyslipidemia ?E78.5 - Hyperlipidemia, unspecified (ICD-10) Productive cough ?R05.8 - Other specified cough (ICD-10) Osteoporosis ?M81.0 - Age-related osteoporosis without current pathological fracture (ICD-10) History of stress test ?Z92.89 - Personal history of other medical treatment (ICD-10) Polyarthralgia ?M25.50 - Pain in unspecified joint (ICD-10) Seasonal allergies ?J30.2 - Other seasonal allergic rhinitis (ICD-10) Lung nodules ?R91.8 - Other nonspecific abnormal finding of lung field (ICD-10) Hx pulmonary embolism ?Z86.711 - Personal history of pulmonary embolism (ICD-10) History of positive PPD ?Z92.89 - Personal history of other medical treatment (ICD-10) Surgical History History of colonoscopy ?Z98.890 - Other specified postprocedural states (ICD-10) History of tubal ligation ?Z98.51 - Tubal ligation status (ICD-10) History of orthopedic surgery ?Z98.890 - Other specified postprocedural states (ICD-10) Family History Mother Diabetes Heart failure Leukemia Brother Coronary artery disease Father Kidney disease Diabetes Social History (Updated 08/13/24 @ 11:47 by Kaylin Hu MD) Narrative: , 2 children, no formal exercise Former smoker, no concerning ETOH or drug use, requests Full Code status. What is your current living situation?: I presently have a place to live Problems where you live: no known problems Problems where you live details: none In the past 12 months, utilities in danger of being shut off: no In past 12 months, lack of transportation kept you from medical appts, meetings, work, or getting things needed for daily living: no In the past 12 mos, have been you worried that your food would run out before you had money to buy more?: never true In the past 12 mos, the food you bought just didn't last and you didn't have money to buy more?: never true Highest level of school completed/degree received: Associate degree: occupational, technical, vocational program Smoking Status: Former smoker Do you use any of these nicotine containing products: None Second hand tobacco smoke exposure: No How often do you have a drink containing alcohol: never How often do you have six or more drinks on one occasion: Never AUDIT-C Alcohol total score: 0 Non-prescribed substance use: denies use Caffeine: Yes How often does anyone, including family, friends and others, physically hurt you: never How often does anyone, including family, friends and others, insult or talk down to you: never How often does anyone, including family, friends and others, threaten you with harm: never How often does anyone, including family, friends and others, scream or curse at you: never service: No Exam Const: Vital Signs, click to edit/add: Vital Signs - 24 hr 08/12/24 20:22 08/12/24 20:38 08/12/24 20:39 Temperature 98.1 F Pulse Rate 120 H 118 H Pulse Rate [Pulse Oximeter] 114 H Respiratory Rate 32 H Blood Pressure 95/78 Blood Pressure [Ri ght Upper Arm] 153/82 H Pulse Oximetry 84 L 94 96 Oxygen Delivery Me thod Nasal Cannula Oxygen Flow Rate 4 08/12/24 20:42 08/12/24 20:43 08/12/24 20:44 Temperature Pulse Rate 118 H Pulse Rate [Pulse Oximeter] Respiratory Rate Blood Pressure 123/63 Blood Pressure [Ri ght Upper Arm] Pulse Oximetry 97 96 96 Oxygen Delivery Me thod OxyMask Oxygen Flow Rate 08/12/24 20:45 08/12/24 21:00 08/12/24 21:01 Temperature Pulse Rate 119 H 114 H 114 H Pulse Rate [Pulse Oximeter] Respiratory Rate Blood Pressure 120/81 Blood Pressure [Ri ght Upper Arm] Pulse Oximetry 97 99 99 Oxygen Delivery Me thod Oxygen Flow Rate 08/12/24 21:15 08/12/24 21:21 08/12/24 21:30 Temperature Pulse Rate 105 H 103 H 101 H Pulse Rate [Pulse Oximeter] Respiratory Rate 23 20 22 Blood Pressure 112/69 Blood Pressure [Ri ght Upper Arm] Pulse Oximetry 97 98 99 Oxygen Delivery Me thod Oxygen Flow Rate 08/12/24 21:41 08/12/24 21:45 08/12/24 22:00 Temperature Pulse Rate 102 H 101 H 103 H Pulse Rate [Pulse Oximeter] Respiratory Rate 15 11 L Blood Pressure 108/64 Blood Pressure [Ri ght Upper Arm] Pulse Oximetry 99 98 96 Oxygen Delivery Me thod Oxygen Flow Rate 08/12/24 22:01 08/12/24 22:15 08/12/24 22:21 Temperature Pulse Rate 102 H 100 98 Pulse Rate [Pulse Oximeter] Respiratory Rate 26 H 19 16 Blood Pressure 121/74 105/66 Blood Pressure [Ri ght Upper Arm] Pulse Oximetry 95 97 96 Oxygen Delivery Me thod Oxygen Flow Rate 08/12/24 22:30 08/12/24 22:41 08/12/24 22:45 Temperature Pulse Rate 97 99 99 Pulse Rate [Pulse Oximeter] Respiratory Rate 21 17 16 Blood Pressure 113/68 Blood Pressure [Ri ght Upper Arm] Pulse Oximetry 96 95 95 Oxygen Delivery Me thod Oxygen Flow Rate 08/12/24 23:02 08/12/24 23:31 08/13/24 00:01 Temperature Pulse Rate 98 97 99 Pulse Rate [Pulse Oximeter] Respiratory Rate 18 14 11 L Blood Pressure 119/78 115/93 H 116/62 Blood Pressure [Ri ght Upper Arm] Pulse Oximetry 96 97 96 Oxygen Delivery Me thod Oxygen Flow Rate Patient is initially lema and ashen appearing, very dyspneic, able to speak a few words at a time between breathing. Definitely using accessory muscles, paradoxical abdominal movement. Voice is not hoarse, sclera clear, conjugate gaze. Lips bluish discoloration. Neck is supple, no adenopathy noted. Poor air entry on inspiration or expiration, definite prolonged expiratory phase. Heart sounds are distant, tachycardic, do not appreciate a murmur. She has no lower extremity edema. She was given a DuoNeb as we are placing IV, getting monitors on. After the DuoNeb she was feeling a bit better. She did have nasal cannula oxygen on on arrival, did switch her to an OxyMask and she was stating she was breathing better. Will see what her venous blood gas is but need to watch for CO2 retention and CO2 narcosis potentially. I do not have any documented history on her recently, she does not seem to have recent hospitalizations with us. If her venous blood gas is looking okay, continue with OxyMask as long as she is continuing to improve. Her coloration looks better, she has more pinkish color to her face now. She did get 125 mg IV Solu-Medrol. We will be getting a portable chest x-ray in full complement of labs. Documenting provider has reviewed patient's vital signs: yes Course Course ED Course: See HPI for her initial stabilization. Consideration for her COPD exacerbation includes cardiac complications, viral and bacterial infections. Reevaluation(s) Time of Reevaluation #1: 21:01 Reevaluation #1: Reviewed with patient that I am concerned about pneumonia on her chest x-ray. She does take azithromycin 3 times weekly. She was last on doxycycline 100 mg twice a day for 14 days on 06/09/2024. Time of Reevaluation #2: 00:30 Reevaluation #2: Patient will be boarding in the ED. Given the severity of her COPD and the prominence of her pneumonia on chest x-ray, believe she warrants observation and ensuring stability prior to discharge to home. There are no beds available, she will board in the ED overnight and they believe they will be able to take her in the morning. She is back down close to her oxygen requirements at home but do think it is prudent to observe her. Vital Signs Vital signs: Initial Vital Signs Temperature 98.1 F 08/12/24 20:22 Temperature Source Temporal Artery Scan 08/12/24 20:22 Pulse Rate 114 H 08/12/24 20:22 Respiratory Rate 32 H 08/12/24 20:22 Blood Pressure 153/82 H 08/12/24 20:22 Blood Pressure Mean 105 08/12/24 20:22 Pulse Oximetry 84 L 08/12/24 20:22 Oxygen Delivery Method Nasal Cannula 08/12/24 20:22 Oxygen Flow Rate 4 08/12/24 20:22 Vital Signs Temperature 98.1 F 08/12/24 20:22 Pulse Rate 114 H 08/12/24 20:22 Respiratory Rate 32 H 08/12/24 20:22 Blood Pressure 153/82 H 08/12/24 20:22 Pulse Oximetry 84 L 08/12/24 20:22 Oxygen Delivery Method Nasal Cannula 08/12/24 20:22 Oxygen Flow Rate 4 08/12/24 20:22 Temperature 98.6 F 08/14/24 11:00 Pulse Rate 92 08/14/24 11:00 Respiratory Rate 18 08/14/24 11:00 Blood Pressure 117/69 08/14/24 11:00 Pulse Oximetry 95 08/14/24 11:00 Oxygen Delivery Method Nasal Cannula 08/14/24 11:00 Oxygen Flow Rate 1.5 08/14/24 11:00 Medications Administered Medications: Generic Name Dose Route Start Last Admin Trade Name Freq PRN Reason Stop Dose Admin Albuterol 2.5 mg 08/13/24 11:32 08/14/24 10:17 Albuterol Sulfate 2.5 Mg/3 Ml Vial.Neb NEB 2.5 mg Q1H PRN Administration Albuterol/Ipratropium 1 neb 08/13/24 11:13 08/14/24 06:20 Iprat-Albut 0.5-2.5 Mg/3 Ml Neb IH 1 neb QID PRN Administration Doxycycline Hyclate 100 mg 08/13/24 21:00 08/14/24 09:23 Doxycycline Hyclate 100 Mg PO 100 mg BID MARY BETH Administration Guaifenesin 1,200 mg 08/13/24 12:00 08/14/24 09:23 Guaifenesin 600 Mg Tab.Er.12h PO 1,200 mg BID MARY BETH Administration Ceftriaxone Sodium 1 gm/ 100 mls @ 200 mls/hr 08/13/24 21:00 08/14/24 06:22 Sodium Chloride IVPB Infused Q24H MARY BETH Infusion Mometasone- 2 puff 08/13/24 21:00 08/14/24 10:24 Formoterol [Dulera] IH Not Given 200-5 Mcg/Actuation BID MARY BETH Hfa Omeprazole 20 mg 08/14/24 07:00 08/14/24 06:20 Omeprazole [address] PO 20 mg DAILY@0700 MARY BETH Administration Prednisone 40 mg 08/14/24 08:00 08/14/24 08:07 Prednisone 20 Mg Tablet PO 40 mg DAILYWM MARY BETH Administration Rivaroxaban 20 mg 08/13/24 21:00 08/13/24 20:53 Rivaroxaban 10 Mg Tablet PO 20 mg HS MARY BETH Administration Simvastatin 10 mg 08/13/24 21:00 08/13/24 20:52 Simvastatin 10 Mg Tablet PO 10 mg HS MARY BETH Administration Sodium Chloride 5 ml 08/13/24 21:00 08/14/24 09:23 Sodium Chloride 0.9 % (Flush) 10 Ml Syringe IVF 5 ml BID MARY BETH Administration Tizanidine HCl 4 mg 08/13/24 21:00 08/13/24 20:52 Tizanidine Hcl 4 Mg Tablet PO 4 mg HS MARY BETH Administration Discontinued Medications Generic Name Dose Route Start Last Admin Trade Name Freq PRN Reason Stop Dose Admin Albuterol 2.5 mg 08/13/24 11:25 08/13/24 11:35 Albuterol Sulfate 2.5 Mg/3 Ml Vial.Neb NEB 2.5 mg Q4H PRN Administration Albuterol/Ipratropium 1 neb 08/12/24 21:15 08/12/24 22:04 Iprat-Albut 0.5-2.5 Mg/3 Ml Neb 08/12/24 21:16 1 neb ONCE ONE Administration Albuterol/Ipratropium 1 neb 08/13/24 05:42 08/13/24 05:44 Iprat-Albut 0.5-2.5 Mg/3 Ml Neb 08/13/24 05:43 1 neb ONCE ONE Administration Doxycycline Hyclate 100 mg 08/12/24 21:39 08/12/24 22:04 Doxycycline Hyclate 100 Mg PO 08/12/24 21:40 100 mg ONCE ONE Administration Ceftriaxone Sodium 1 gm/ 100 mls @ 200 mls/hr 08/12/24 21:39 08/12/24 23:42 Sodium Chloride IVPB 08/12/24 21:40 Infused ONCE ONE Infusion Methylprednisolone Sodium Succinate 125 mg 08/12/24 21:15 08/12/24 22:04 Methylprednisolone Sod Succ 62.5 Mg/Ml (125) IVP 08/12/24 21:16 125 mg ONCE ONE Administration Prednisone 60 mg 08/13/24 08:55 08/13/24 09:05 Prednisone 20 Mg Tablet PO 08/13/24 08:56 60 mg ONCE ONE Administration Medical Decision Making Lab Data Lab results reviewed: Yes I reviewed the patient's lab results Labs: Lab Results 08/12/24 Range/Units 20:20 WBC 16.19 H (4.50-11.00) K/uL RBC 4.21 (4.00-5.20) m/uL Hgb 11.8 L (12.0-16.0) gm/dL Hct 37.4 (33.0-51.0) % MCV 89 (80-100) fL MCH 28 (26-34) pg MCHC 32 (32-36) gm/dL RDW Coeff of Maria D 13.0 (11.5-15.5) % Plt Count 420 (140-440) K/uL Neut % (Auto) 82.4 H (42.0-72.0) % Lymph % (Auto) 6.2 L (20-44) % [place] % (Auto) 10.3 (0.0-11.0) % Eos % (Auto) 0.7 (0.0-7.0) % Baso % (Auto) 0.2 (0.0-3.0) % Neut # (Auto) 13.30 H (1.7-7.0) K/uL Lymph # (Auto) 1.00 (0.90-2.90) K/uL [place] # (Auto) 1.70 H (0.00-0.90) K/UL Eos # (Auto) 0.10 (0.00-0.50) K/uL Baso # (Auto) 0.00 (0.00-0.30) K/uL Abs Immat Gran (auto) 0.00 (0.00-0.30) K/uL Imm/Tot Granulo (auto) 0.2 % VBG pH 7.364 (7.32-7.43) VBG pCO2 48 (40-50) mmHG VBG pO2 36.3 (25-47) mmHG VBG HCO3 27 (21-28) mmol/L Sodium 137 (135-149) mmol/L Potassium 4.2 (3.6-5.1) mmol/L Chloride 100 (96-114) mmol/L Carbon Dioxide 26 (20-32) mmol/L Anion Gap 11 (7-15) mEq/L BUN 10 (7-30) mg/dL Creatinine 0.5 (0.5-1.5) mg/dL Estimated Creat Clear 42.89 Estimated GFR 105 ml/min Glucose 118 H (60-115) mg/dL Lactate 1.6 (0.5-1.9) mmol/L Calcium 9.4 (8.4-10.6) mg/dL Magnesium 2.0 (1.5-2.6) mg/dL Total Bilirubin 0.7 (0.1-1.5) mg/dL Direct Bilirubin 0.4 (0.0-0.5) mg/dL AST 37 H (12-35) U/L ALT 46 H (4-35) U/L Alkaline Phosphatase 82 (40-150) U/L Troponin I < 0.01 (0.01-0.04) ng/mL C-Reactive Protein 18.2 H (0.5-1.0) mg/dL NT-Pro-B Natriuret Pep 106 pg/mL Total Protein 7.7 (6.0-8.3) g/dL Albumin 4.4 (3.3-5.0) g/dL Procalcitonin 0.10 (<0.50) ng/mL SARS-CoV-2 (PCR) Negative SARS-CoV-2 (Negative) Influenza Type A (PCR) Negative PCR FLU A (Negative) Influenza Type B (PCR) Negative PCR FLU B (Negative) RSV (PCR) Negative PCR RSV (Negative) Imaging Data Chest x-ray: Attestation: I have reviewed the pertinent imaging results. My impression: ML right-sided infiltrate on my preliminary review of this chest x-ray. Radiologist's impression: Patient: DUSTY GONZALEZ Facility:?[facility] Patient ID:?[id number] Site Patient ID:?[id number]. Site :?[id number] Study:?XRay-Chest PORTABLE-08/12/2024 9:11:07 PM Ordering Physician:?Mervat Rice Final Report: INDICATION: Chronic obstructive pulmonary disease, hypoxia TECHNIQUE: Chest radiograph 1 view COMPARISON: 06/02/2024 FINDINGS: Mediastinum: Calcified right hilar lymph nodes are noted without change. The heart silhouette is normal in size and morphology. Lung: Ill-defined airspace infiltrates are present in the right lower lung zone which may be due to pneumonia or aspiration. Severe pulmonary emphysema with pulmonary granulomas are noted without change. No sign of pleural effusion seen. No pneumothorax is identified. Bone and Soft tissue: Unremarkable for age. IMPRESSION: 1. Ill-defined airspace infiltrates are present in the right lower lung zone which may be due to pneumonia or aspiration. Dictated by Iraj Locke MD @ 08/12/2024 9:30:08 PM Dictated by: Iraj Locke MD @ 08/12/2024 21:30:21 (Electronic Signature) ECG Data Attestation: I personally reviewed and interpreted this ECG as follows: (Sinus tachycardia, 110 beats per minute. Some artifact but no definitive ischemic change.) Prior ECG tracings: available for review Discharge Plan Discharge Clinical Impression: COPD (chronic obstructive pulmonary disease) Qualifiers: COPD type: unspecified COPD Qualified Code(s): J44.9 - Chronic obstructive pulmonary disease, unspecified Community acquired pneumonia Qualifiers: Laterality: right Lung location: lower lobe of lung Qualified Code(s): J18.9 - Pneumonia, unspecified organism Patient Disposition: Admitted As Observation Condition: Guarded
[2024-08-12 20:32] LABS: HCO3 VBG 27 mmol/L (21-28); Lactate* 1.6 mmol/L (0.5-1.9); PCO2 VBG 48 mmHG (40-50); PO2 VBG 36.3 mmHG (25-47); pH VBG 7.364 (7.32-7.43)
[2024-08-12 20:33] LABS: Basophils Percent Auto 0.2 % (0.0-3.0); Eosinophils Percent Auto 0.7 % (0.0-7.0); Hematocrit 37.4 % (33.0-51.0); Hemoglobin* 11.8 gm/dL (12.0-16.0); Immature Granulocytes Pct Auto 0.2 %; Lymphocytes Percent Auto 6.2 % (20-44); Mean Corpuscular HGB Conc 32 gm/dL (32-36); Mean Corpuscular Hemoglobin 28 pg (26-34); Mean Corpuscular Volume 89 fL (80-100); Monocytes Percent Auto 10.3 % (0.0-11.0); Neutrophils Percent Auto 82.4 % (42.0-72.0); Platelet Count* 420 K/uL (140-440); Red Blood Count 4.21 m/uL (4.00-5.20); White Blood Count* 16.19 K/uL (4.50-11.00)
[2024-08-12 20:34] LABS: Slide Review Reflex No
[2024-08-12 20:48] LABS: Albumin* 4.4 g/dL (3.3-5.0); Chloride* 100 mmol/L (96-114); Sodium* 137 mmol/L (135-149)
[2024-08-12 20:49] LABS: Potassium* 4.2 mmol/L (3.6-5.1)
[2024-08-12 20:51] LABS: Alanine Aminotransferase* 46 U/L (4-35); Alkaline Phosphatase* 82 U/L (40-150); Anion Gap 11 mEq/L (7-15); Aspartate Amino Transferase* 37 U/L (12-35); Bilirubin Direct* 0.4 mg/dL (0.0-0.5); Bilirubin Total* 0.7 mg/dL (0.1-1.5); Blood Urea Nitrogen* 10 mg/dL (7-30); Carbon Dioxide* 26 mmol/L (20-32); Creatinine* 0.5 mg/dL (0.5-1.5); Est. Creatinine Clearance* 42.89; Estimated Glomerular Filt Rate 105 ml/min; Total Protein* 7.7 g/dL (6.0-8.3)
[2024-08-12 20:52] LABS: Calcium* 9.4 mg/dL (8.4-10.6); Glucose* 118 mg/dL (60-115)
--- OUTSIDE RECORDS SUMMARY | 2024-08-12 21:02 | XMS_ITS | Encounter Summary ---
Author Organization [facility] Address [address] [place] [address] Care Team Providers Care Business Intelligence Developer Name Role Phone Nilton Roach PA-C Primary Care Provider Nilton Roach PA-C Unavailable [phone] Betty Gupta MD Unavailable Keegan Mcdonald MD Unavailable [phone] Jean Guerin MD Unavailable Mehreen Toussaint NP Primary Care Provider Nilton Roach PA-C Unavailable [phone] Farzana Sabillon MD Unavailable [phone] Saroj Romeo MD Unavailable Jean Guerin MD Unavailable + [phone] Sobia Domingo MD Unavailable Carleen Garcia Unavailable [phone] Kimberlee Logan [facility] Unavailable Unavailable Kimberlee Logan [facility] Unavailable Unavailable Encounter Details Date Type Department Care Team (Late st Contact Info) Description 10/29/2022 MyC Medical Advice [address] [address] Faith Farnsworth, RN Social History [...] Sex Assigned at Female 04/23/2018 4:04 PM CATERING MANAGER Legal Sex Female 9:39 AM CATERING MANAGER Gender Identity Female 04/23/2018 4:04 PM CATERING MANAGER Sexual Orientation Straight 04/23/2018 4: 04 PM CATERING MANAGER documented as of this encounter Plan of Treatment Upcoming Encounters Date Type Department Care Team (Late st Contact Info) Description 10/05/2024 1:00 PM CDT Virtual Visit [facility] [address] [facility] [address] [place] [phone] Farzana Sabillon MD [address] [facility] [address] [place], [place] [id number] 10/06/2024 1:00 PM CDT Office Visit [facility] [address] [address] Jaen Guerin MD [address] [place] [address] 12/25/2024 10:30 AM CDT Office Visit [facility] [address] [place] [phone] Sobia Domingo MD [address] [place] [address] [address] [place], [place] [id number] documented as of this encounter Visit Diagnoses Not on filedocumented in this encounter Additional Health Concerns Assessment Noted Time PHQ-9 Depression Total Score: 2 09/21/19 20 7:02 AM CDT documented as of this encounter Care Teams Business Intelligence Developer Relationship Specialty Start Date End Date Nilton Roach PA-C [address] [facility] [address] [place] [address] PCP - General Physician Integration Specialist 01/02/17 03/06/23 Mehreen Toussaint NP [address] [address] PCP - General 03/07/23 Nilton Roach PA-C [address] [facility] [address] [place] [address] Assigned PCP 12/13/16 12/21/22 [place] [address] [place] [address] Assigned Rheumatology Provider 02/26/20 03/27/24 [place] [address] [facility] [address] Assigned Pulmonology Provider 12/30/21 05/03/23 Jean Guerin MD [address] [facility] [place] [address] Assigned PCP 12/22/22 05/29/23 Nilton Roach PA-C [address] [facility] [address] [place] [address] Assigned PCP 05/30/23 02/25/24 Farzana Sabillon MD [address] [place] [place] [address] Assigned Endocrinology Provider 08/27/23 [place] [address] [place] [address] Assigned Rheumatology Provider 03/28/24 06/27/24 Jean Guerin MD [address] [place] [address] Critical Care 06/12/24 Sobia Domingo MD [address] [place] [place] [address] Assigned Rheumatology Provider 06/28/24 Carleen Garcia EP [facility] [address] [place] [address] Cardiac Rehabilitation Therapist 06/30/24 Kimberlee Logan RP Pharmacist Pharmacist 07/01/24 Kimberlee Logan RPH Assigned MTM Pharmacist 07/26/24 documented as of this encounter
--- OUTSIDE RECORDS SUMMARY | 2024-08-12 21:02 | XMS_ITS | Encounter Summary ---
Author Organization [place] Address [address] [place] [address] Care Team Providers Care Experimental Machining Lab Manager Name Role Phone Nilton Roach PA-C Primary Care Provider Betty Gupta MD Unavailable [phone] Keegan Mcdonald MD Unavailable [phone] Jean Guerin MD Unavailable [phone] Mehreen Toussaint NP Primary Care Provider Nilton Roach PA-C Unavailable Farzana Sabillon MD Unavailable [phone] Saroj Romeo MD Unavailable Jean Guerin MD Unavailable [phone] Sobia Domingo MD Unavailable Carleen Garcia Unavailable [phone] Kimberlee Logan [facility] Unavailable Unavailable Kimberlee Logan [facility] Unavailable Unavailable Encounter Details Date Type Department Care Team (Late st Contact Info) Description 02/14/2023 [facility] [address] [address] Lucila Roa Social History Tobacco [...] Sex Assigned at Female 04/23/2018 4:04 PM MINE SAFETY ENGINEER Legal Sex Female 9:39 AM MINE SAFETY ENGINEER Gender Identity Female 04/23/2018 4:04 PM MINE SAFETY ENGINEER Sexual Orientation Straight 04/23/2018 4: 04 PM MINE SAFETY ENGINEER documented as of this encounter Plan of Treatment Upcoming Encounters Date Type Department Care Team (Late st Contact Info) Description 10/05/2024 1:00 PM CDT Virtual Visit [facility] [address] [facility] [address] [place] [address] Farzana Sabillon MD [address] [facility] 200 [place], [place] [address] 10/06/2024 1:00 PM CDT Office Visit [facility] [address] [address] Jean Guerin MD 640 [place] [address] 12/25/2024 10:30 AM CDT Office Visit [facility] [address] 200 [place] [address] Sobia Domingo MD [address] [place] [address] 215 [place], [place] [address] documented as of this encounter Visit Diagnoses Not on filedocumented in this encounter Additional Health Concerns Assessment Noted Time PHQ-9 Depression Total Score: 2 09/21/19 20 7:02 AM CDT documented as of this encounter Care Teams Experimental Machining Lab Manager Relationship Specialty Start Date End Date Nilton Roach PA-C [address] [facility] 100 [place] [address] PCP - General Physician Director Shopper Marketing 01/02/17 03/06/23 Mehreen Toussaint NP [address] [address] PCP - General 03/07/23 [place] [address] [facility] [place] [address] Assigned Rheumatology Provider 02/26/20 03/27/24 [place] [address] [place] [address] Assigned Pulmonology Provider 12/30/21 05/03/23 Jean Guerin MD [address] [place] [address] Assigned PCP 12/22/22 05/29/23 Nilton Roach PA-C [address] [place] [address] Assigned PCP 05/30/23 02/25/24 Farzana Sabillon MD [address] [facility] 200 [place], [place] [address] Assigned Endocrinology Provider 08/27/23 [place] [address] [place] [address] Assigned Rheumatology Provider 03/28/24 06/27/24 Jean Guerin MD [address] [address] Critical Care 06/12/24 Sobia Domingo MD [address], [place] [address] Assigned Rheumatology Provider 06/28/24 Carleen Garcia EP [facility] [address] [address] Cardiac Rehabilitation Therapist 06/30/24 Kimberlee Logan [facility] Pharmacist Pharmacist 07/01/24 Kimberlee Logan RP Assigned MTM Pharmacist 07/26/24 documented as of this encounter
--- OUTSIDE RECORDS SUMMARY | 2024-08-12 21:02 | XMS_ITS | Encounter Summary ---
Author Organization [place] Address [address] [place] [address]. [place] [address] Care Team Providers Care Novelty Twister Operator Name Role Phone Betty Gupta MD Unavailable Keegan Mcdonald MD Unavailable [phone] Jean Guerin MD Unavailable [phone] Mehreen Toussaint NP Primary Care Provider Nilton Roach PA-C Unavailable [phone] Farzana Sabillon MD Unavailable Saroj Romeo MD Unavailable [facility] charlotteJean oliveira MD Unavailable [phone] Sobia Domingo MD Unavailable Carleen Garcia Unavailable [phone] Kimberlee Logan [facility] Unavailable Unavailable Kimberlee Logan [facility] Unavailable Unavailable Reason for Visit * Reason Onset Date Comments Prior Auth - Medication 04/16/2023 JACKELIN bryant Encounter Details Date Type Department Care Team (Late st Contact Info) Description 04/16/2023 [facility] [address] [address] [place] [address] [place] [address] Prior Auth - Medication (PAP [...] Sex Assigned at Female 04/23/2018 4:04 PM DEVULCANIZER HEAD Legal Sex Female 9:39 AM DEVULCANIZER HEAD Gender Identity Female 04/23/2018 4:04 PM DEVULCANIZER HEAD Sexual Orientation Straight 04/23/2018 4: 04 PM DEVULCANIZER HEAD documented as of this encounter Miscellaneous Notes * Telephone Encounter - Sandhya Kim - 05/08/2023 1:23 PM CST Spoke to Vicki they have the application and it is under review They will have a ETA by 05/20/2023 Yoseph Hutchinson, [facility] Liaison [facility] [email or web address] LCANIZER HEAD * Telephone Encounter - Lars Henning - 05/01/2023 5:42 PM CST Images from the original note were not included. Date: 05/01 Comments: Spoke to PT. Pt has not filled out their portion yet but will finish it tomorrow and sendback to Sandhya LCANIZER HEAD * Telephone Encounter - Sandhya Kim - 04/30/2023 11:16 AM CST Re faxed renewal application to clinic in [place] to complete Yoseph Hutchinson, [facility] [email or web address] LCANIZER HEAD * Telephone Encounter - Sandhya Kim - 04/22/2023 11:30 AM CST Marni Brandti-- faxing this PAP application to you guys since Candy will be in [place] this week Silo Man will fax pap application to FAX # [phone] [place] Thank you please review and get signatures -- you can fax directly to vicki please FAX [phone] Yoseph Hutchinson, [facility] [email or web address] LCANIZER HEAD * Telephone Encounter - Sandhya Kim - 04/19/2023 8:29 AM CST FREE DRUG APPLICATION INITIATED Medication: BENLYSTA Free Drug Program Name: Benlysta [place] Date Submitted: 04/19/2023 8:29 AM Phone #: [phone] Fax #: [phone] Additional Information: Silo Man has sent application for MD to complete and fax to [email or web address] to Rns Yoseph Hutchinson, [facility] [email or web address] LCANIZER HEAD documented in this encounter Plan of Treatment Upcoming Encounters Date Type Department Care Team (Late st Contact Info) Description 10/05/2024 1:00 PM CDT Virtual Visit [facility] [address] [place] [phone] Farzana Sabillon MD [address] [place] 200 [place] [address] 10/06/2024 1:00 PM CDT Office Visit [facility] [place] [address] [place] [address] Jean Guerin MD [address] [place] [address] 12/25/2024 10:30 AM CDT Office Visit [facility] [address] [facility] [address] [place] [address] Sobia Domingo MD [address] [facility] 215 [place], [place] [address] documented as of this encounter Visit Diagnoses Not on filedocumented in this encounter Additional Health Concerns Assessment Noted Time PHQ-9 Depression Total Score: 2 09/21/19 20 7:02 AM CDT documented as of this encounter Care Teams Novelty Twister Operator Relationship Specialty Start Date End Date Mehreen Toussaint NP [facility] [address] [place] [address] PCP - General 03/07/23 [place] [address] [place] [address] Assigned Rheumatology Provider 02/26/20 03/27/24 [place] [address] [place] [address] Assigned Pulmonology Provider 12/30/21 05/03/23 Jean Guerin MD [address] [place] [address] Assigned PCP 12/22/22 05/29/23 Nilton Roach PA-C [address] [place] [place] [address] Assigned PCP 05/30/23 02/25/24 Farzana Sabillon MD [address] [place] 200 [place] [address] Assigned Endocrinology Provider 08/27/23 [place] [address] [place] [address] Assigned Rheumatology Provider 03/28/24 06/27/24 Jean Guerin MD [address] [place] [address] Critical Care 06/12/24 Sobia Domingo MD [address] [place] [address] [place] [address] Assigned Rheumatology Provider 06/28/24 Carleen Garcia EP [facility] [address] [place] [address] Cardiac Rehabilitation Therapist 06/30/24 Kimberlee Logan [facility] Pharmacist Pharmacist 07/01/24 Kimberlee Logan [facility] Assigned MTM Pharmacist 07/26/24 documented as of this encounter
--- OUTSIDE RECORDS SUMMARY | 2024-08-12 21:02 | XMS_ITS | Encounter Summary ---
Author Organization [place] Address [address] [place] [address] Care Team Providers Care Home Health Manager Name Role Phone Mehreen Toussaint NP Primary Care Provider Farzana Sabillon MD Unavailable [phone] Jean Guerin MD Unavailable + [phone] Sobia Domingo MD Unavailable Carleen Garcia Unavailable [phone] Reason for Visit * Rehab Therapy Cardiac Therapy (Routine: Next available opening) - Authorized Specialty Diagnoses / Procedures Referred By Ramsey arias Referred To Contact CARDIAC REHAB Diagnoses Stage 4 very severe COPD by GOLD classification (H) [address] [address] Phone: tel: Referral ID Status Reason Start Date Expiration Date V isits Requested Visits Authorized [id number] Authorized 06/26/2024 05/05/2025 72 72 Encounter Details Date Type Department Care Team (Latest Contact Info) Description 06/30/2024 1:59 PM IRON PELLET TESTER - 06/30/2024 11:59 PM IRON PELLET TESTER Hospital Encounter [facility] [address] [place] [address] Jean Guerin MD [address] [address] 2, Rh Pulmonary Rehab Discharge Disposition: Home [...] Sex Assigned at Female 04/23/2018 4:04 PM IRON PELLET TESTER Legal Sex Female 9:39 AM IRON PELLET TESTER Gender Identity Female 04/23/2018 4:04 PM IRON PELLET TESTER Sexual Orientation Straight 04/23/2018 4: 04 PM IRON PELLET TESTER documented as of this encounter Medications at [...] Description 10/05/2024 1:00 PM CDT Virtual Visit [facility] [address] [place] [address] Farzana Sabillon MD [address] [place] [place], [place] [address] 10/06/2024 1:00 PM CDT Office Visit [facility] [address] [phone] Jean Guerin MD [address] [place] [address] 12/25/2024 10:30 AM CDT Office Visit [facility] [place] [address] [facility] 200 [place] [address] Sobia Domingo MD [address] [facility] 215 [place], [place] [address] documented as of this encounter Visit Diagnoses Not on filedocumented in this encounter Additional Health Concerns Assessment Noted Time PHQ-9 Depression Total Score: 2 09/21/19 20 7:02 AM CDT documented as of this encounter Care Teams Home Health Manager Relationship Specialty Start Date End Date Mehreen Toussaint NP [facility] 225 [place] [address] PCP - General 03/07/23 Frazana Sabillon MD [address] [facility] 200 [place] [address] Assigned Endocrinology Provider 08/27/23 Jean Guerin MD [address] [place] [address] Critical Care 06/12/24 Sobia Domingo MD [address] [place] 215 [place] [address] Assigned Rheumatology Provider 06/28/24 Carleen Garcia EP [facility] [address] [address] Cardiac Rehabilitation Therapist 06/30/24 documented as of this encounter
--- OUTSIDE RECORDS SUMMARY | 2024-08-12 21:02 | XMS_ITS | Encounter Summary ---
Author Organization [place] Address [address] [place] [address] Care Team Providers Care Telephone Maintainer Name Role Phone Nilton Roach PA-C Primary Care Provider Nilton Roach PA-C Unavailable [phone] Betty Gupta MD Unavailable [phone] Gray Lora MD Unavailable [phone] Reginald Wen MD Unavailable [phone] Nik Bryan MD Unavailable Tracie Godinez MD Unavailable + [phone] Reginald Wen MD Unavailable [phone] Keegan Mcdonald MD Unavailable [phone] Keegan Mcdonald MD Unavailable [phone] Jean Guerin MD Unavailable + [phone] Mehreen Toussaint NP Primary Care Provider [phone] Nilton Roach PA-C Unavailable [phone] Farzana Sabillon MD Unavailable [phone] Saroj Romeo MD Unavailable Jean Guerin MD Unavailable + [phone] Sobia Domingo MD Unavailable Carleen Garcia EP Unavailable Jd Logann Antonio [facility] Unavailable Unavailable DesmondJdn Antonio [facility] Unavailable Unavailable Encounter Details Date Type Department Care Team (Late st Contact Info) Description 05/17/2020 MyC Medical Advice [facility] [address] [place] [address] Nelida Aragon, GRINDER SET UP OPERATOR SURFACE Social History Tobacco Use Types Packs/Day Years Used Date Smoking Tobacco: Former Cigarettes 1 40 0 06/06/1979 - 06/06/2019 Smokeless Tobacco: Never Comments:Occasional Alcohol Use Standard Drinks/Week Comments No 0 (1 standard drink = 0.6 oz pur e alcohol) PHQ-2 Answer Date Recorded PHQ-2 Score 0 05/14/2018 Comments No Sex and Gender Information Value Date Recorded Sex Assigned at Female 04/23/2018 4:04 PM ASSEMBLER CHASSIS Legal Sex Female 9:39 AM ASSEMBLER CHASSIS Gender Identity Female 04/23/2018 4:04 PM ASSEMBLER CHASSIS Sexual Orientation Straight 04/23/2018 4: 04 PM ASSEMBLER CHASSIS documented as of this encounter Plan of Treatment Upcoming Encounters Date Type Department Care Team (Late st Contact Info) Description 10/05/2024 1:00 PM CDT Virtual Visit [place] [address] [facility] [address] [place] [address] Farzana Sabillon MD [address] [place] [address] 200 [place] [address] 10/06/2024 1:00 PM CDT Office Visit [facility] [address] [address] Jean Guerin MD [address] [place] [address] 12/25/2024 10:30 AM CDT Office Visit [facility] [address] [phone] Sobia Domingo MD [address] [address] documented as of this encounter Visit Diagnoses Not on filedocumented in this encounter Additional Health Concerns Infection Onset Date Last Indicated Resolved Time Rule Out COVID-19 09/12/2020 09/12/2020 09/13/2020 5:31 PM CDT Assessment Noted Time PHQ-9 Depression Total Score: 2 09/21/19 7:02 AM CDT documented as of this encounter Care Teams Telephone Maintainer Relationship Specialty Start Date End Date Nilton Roach PA-C [address] [place] [address] PCP - General Physician Sintering Press Operator 01/02/17 03/06/23 Mehreen Toussaint NP [address] [address] PCP - General 03/07/23 Nilton Roach PA-C [address] [place] [address] Assigned PCP 12/13/16 12/21/22 [place] [address] [place] [address] Assigned Rheumatology Provider 02/26/20 03/27/24 Gray Lora MD 909 [place] [address] Assigned Pulmonology Provider 02/26/20 05/27/21 Reginald Wen MD [address] [place] [address] Assigned Musculoskeletal Provider 05/29/20 07/19/20 Nik Bryan MD 909 [place] [address] Assigned Cancer Care Provider 02/26/20 11/17/21 Tracie Godinez MD [address] [place] [address] Assigned Musculoskeletal Provider 05/22/20 05/28/20 Reginald Wen MD [address] [place] [address] Assigned Musculoskeletal Provider 02/26/20 05/21/20 Keegan Mcdonald MD [address] [place] [address] Assigned Pulmonology Provider 07/09/21 09/02/21 Keegan Mcdonald MD [address] [place] [address] Assigned Pulmonology Provider 12/30/21 05/03/23 Jean Guerin MD [address] [place] [address] Assigned PCP 12/22/22 05/29/23 Nilton Roach PA-C [address] [place] [address] Assigned PCP 05/30/23 02/25/24 Farzana Sabillon MD [address] 200 [place] [address] Assigned Endocrinology Provider 08/27/23 [place] [address] [place] [address] Assigned Rheumatology Provider 03/28/24 06/27/24 Jean Guerin MD [address] [facility] [place] [place] [address] Critical Care 06/12/24 Sobia Domingo MD [address] [facility] 215 [place] [address] Assigned Rheumatology Provider 06/28/24 Carleen Garcia EP [facility] [address] [facility] [place] [place] [address] Cardiac Rehabilitation Therapist 06/30/24 Kimberlee Logan RP Pharmacist Pharmacist 07/01/24 Kimberlee Logan RPH Assigned MTM Pharmacist 07/26/24 documented as of this encounter
--- OUTSIDE RECORDS SUMMARY | 2024-08-12 21:02 | XMS_ITS | Encounter Summary ---
Author Organization [place] Address [address] [place] [address] Care Team Providers Care Income Tax Manager Name Role Phone Nilton Roach PA-C Primary Care Provider Nilton Roach PA-C Unavailable [phone] Betty Gupta MD Unavailable [phone] Gray Lora MD Unavailable [phone] Reginald Wen MD Unavailable [phone] Nik Bryan MD Unavailable Tracie Godinez MD Unavailable + [phone] Reginald Wen MD Unavailable +[phone] Keegan Mcdonald MD Unavailable [phone] Keegan Mcdonald MD Unavailable [phone] Jean Guerin MD Unavailable + [phone] Mehreen Toussaint NP Primary Care Provider Nilton Roach PA-C Unavailable [phone] Farzana Sabillon MD Unavailable +[phone] Saroj Romeo MD Unavailable Jean Guerin MD Unavailable + [phone] Sobia Domingo MD Unavailable Carleen Garcia Unavailable Kimberlee Logan [facility] Unavailable Unavailable Kimberlee Logan [facility] Unavailable Unavailable Reason for Visit * Reason Comments Medication Refill Encounter Details Date Type Department Care Team (Late Contact Info) Description 01/12/2020 Refill [facility] [address] [facility] [address] [place] [phone] Nilton Roach PA-C 290 [facility] [address] [place], [place] [id number] Medication Refill Social History Tobacco Use Types [...] Sex Assigned at Female 04/23/2018 4:04 PM COMPUTER SUPPORT TECHNICIAN Legal Sex Female 9:39 AM COMPUTER SUPPORT TECHNICIAN Gender Identity Female 04/23/2018 4:04 PM COMPUTER SUPPORT TECHNICIAN Sexual Orientation Straight 04/23/2018 4: 04 PM COMPUTER SUPPORT TECHNICIAN COVID-19 Exposure Response Date Recorded In [...] Description 10/05/2024 1:00 PM CDT Virtual Visit [facility] [address] [place] [phone] Farzana Sabillon MD [address] [place] [address] 10/06/2024 1:00 PM CDT Office Visit [facility] [address] [phone] Jean Guerin MD 6400 [place], [place] [address] 12/25/2024 10:30 AM CDT Office Visit [facility] [address] [facility] 200 [place] [address] Sobia Domingo MD [address] [facility] 215 [place] [address] documented as of this encounter Visit Diagnoses Diagnosis Chronic bilateral low back pain with bilateral sciatica documented in this encounter Additional Health Concerns Infection Onset Date Last Indicated Resolved Time Rule Out COVID-19 09/12/2020 09/12/2020 09/13/2020 5:31 PM CDT Assessment Noted Time PHQ-9 Depression Total Score: 2 09/21/19 20 7:02 AM CDT documented as of this encounter Care Teams Income Tax Manager Relationship Specialty Start Date End Date Nilton Roach PA-C [address] [facility] [address] [place] [address] PCP - General Physician Acoustical Material Worker 01/02/17 03/06/23 Mehreen Toussaint NP [address] [address] PCP - General 03/07/23 Nilton Roach PA-C [address] [address] Assigned PCP 12/13/16 12/21/22 [place] [address] [place], [place] [address] Assigned Rheumatology Provider 02/26/20 03/27/24 Gray Lora MD [address] [place] [address] Assigned Pulmonology Provider 02/26/20 05/27/21 Reginald Wen MD 4000 [place], [place] [address] Assigned Musculoskeletal Provider 05/29/20 07/19/20 Nik Bryan MD [address] [place] [address] Assigned Cancer Care Provider 02/26/20 11/17/21 Tracie Godinez MD [address] [address] Assigned Musculoskeletal Provider 05/22/20 05/28/20 Reginald Wen MD 4000 [place], [place] [address] Assigned Musculoskeletal Provider 02/26/20 05/21/20 Keegan Mcdonald MD [address] [facility] [place] [address] Assigned Pulmonology Provider 07/09/21 09/02/21 Keegan Mcdonald MD [address] [address] Assigned Pulmonology Provider 12/30/21 05/03/23 Jean Guerin MD [address] [address] Assigned PCP 12/22/22 05/29/23 Nilton Roach PA-C [address] [place], [place] [address] Assigned PCP 05/30/23 02/25/24 Farzana Sabillon MD [address] [place], [place] [address] Assigned Endocrinology Provider 08/27/23 [place] [address] [place], [place] [address] Assigned Rheumatology Provider 03/28/24 06/27/24 Jean Guerin MD [address] [address] Critical Care 06/12/24 Sobia Domingo MD [address] [place] [address] Assigned Rheumatology Provider 06/28/24 Carleen Garcia EP [facility] [address] [address] Cardiac Rehabilitation Therapist 06/30/24 Kimberlee Logan RPH Pharmacist Pharmacist 07/01/24 Kimberlee Logan RPH Assigned MTM Pharmacist 07/26/24 documented as of this encounter
--- OUTSIDE RECORDS SUMMARY | 2024-08-12 21:02 | XMS_ITS | Encounter Summary ---
Author Organization [place] Address [address] [place] [address] Care Team Providers Care Adult Nurse Practitioner Name Role Phone Mehreen Toussaint NP Primary Care Provider Farzana Sabillon MD Unavailable [phone] Jean Guerin MD Unavailable + [phone] Sobia Domingo MD Unavailable Carleen Garcia Unavailable [phone] Encounter Details Date Type Department Care Team [...] Sex Assigned at Female 04/23/2018 4:04 PM FURNACE PROCESS SUPERVISOR Legal Sex Female 9:39 AM FURNACE PROCESS SUPERVISOR Gender Identity Female 04/23/2018 4:04 PM FURNACE PROCESS SUPERVISOR Sexual Orientation Straight 04/23/2018 4: 04 PM FURNACE PROCESS SUPERVISOR documented as of this encounter Plan of Treatment Upcoming Encounters Date Type Department Care Team ( st Contact Info) Description 10/05/2024 1:00 PM CDT Virtual Visit [facility] [address] [place] [address] Farzana Sabillon MD [address] [place] [address] 10/06/2024 1:00 PM CDT Office Visit [facility] [address] [phone] Jean Guerin MD [address] [place] [address] 12/25/2024 10:30 AM CDT Office Visit [facility] [address] [facility] [address] [place] [phone] Sobia Domingo MD [address] [facility] [address] [address] documented as of this encounter Visit Diagnoses Not on filedocumented in this encounter Additional Health Concerns Assessment Noted Time PHQ-9 Depression Total Score: 2 09/21/19 20 7:02 AM CDT documented as of this encounter Care Teams Adult Nurse Practitioner Relationship Specialty Start Date End Date Mehreen Toussaint NP [address] [address] PCP - General 03/07/23 Farzana Sabillon MD [address] [place] [address] Assigned Endocrinology Provider 08/27/23 Jean Guerin MD [address] [place] [address] Critical Care 06/12/24 Sobia Domingo MD [address] [address] Assigned Rheumatology Provider 06/28/24 Carleen Garcia EP [facility] [address] [facility] [place] [place] [address] Cardiac Rehabilitation Therapist 06/30/24 documented as of this encounter
--- OUTSIDE RECORDS SUMMARY | 2024-08-12 21:02 | XMS_ITS | Encounter Summary ---
Author Organization [place] Address [address] [place] [address]. [place] [address] Care Team Providers Care Plasma Table Operator Name Role Phone Nilton Roach PA-C Primary Care Provider Nilton Roach PA-C Unavailable [phone] Betty Gupta MD Unavailable [phone] Keegan Mcdonald MD Unavailable [phone] Jean Guerin MD Unavailable Mehreen Toussaint NP Primary Care Provider Nilton Roach PA-C Unavailable Farzana Sabillon MD Unavailable [phone] Saroj Romeo MD Unavailable Jean Guerin MD Unavailable Sobia Domingo MD Unavailable Carleen Garcia Unavailable [phone] Kimberlee Logan [facility] Unavailable Unavailable Kimberlee Logan RP Unavailable Unavailable Encounter Details Date Type Department Care Team (Late st Contact Info) Description 05/25/2022 MyC [facility] [address] [place] [address] Carol Lloyd Social History Tobacco [...] Sex Assigned at Female 04/23/2018 4:04 PM SCIENTIST Legal Sex Female 9:39 AM SCIENTIST Gender Identity Female 04/23/2018 4:04 PM SCIENTIST Sexual Orientation Straight 04/23/2018 4: 04 PM SCIENTIST COVID-19 Exposure Response Date Recorded In the last 10 days, have yo u been in contact with someone who was confirmed or suspected to have Coronavirus/COVID-19? No / Unsure 05/02/2022 10:29 AM SCIENTIST documented as of this encounter Miscellaneous Notes * Telephone Encounter - Corrie Guidry RMA - 05/30/2022 3:48 PM CST [employer] form completed and faxed. GRETCHEN Fraser Email: [email or web address] - Rheumatology NTIST documented in this encounter Plan of Treatment Upcoming Encounters Date Type Department Care Team (Late st Contact Info) Description 10/05/2024 1:00 PM CDT Virtual Visit [facility] [address] [place] [address] Farzana Sabillon MD [address] [place], [place] [address] 10/06/2024 1:00 PM CDT Office Visit [facility] [address] [address] Jean Guerin MD [address] [place] [address] 12/25/2024 10:30 AM CDT Office Visit [facility] [place] [address] [place] [address] 200 [place] [phone] Sobia Domingo MD [address] [place] [address] documented as of this encounter Visit Diagnoses Not on filedocumented in this encounter Additional Health Concerns Assessment Noted Time PHQ-9 Depression Total Score: 2 09/21/19 20 7:02 AM CDT documented as of this encounter Care Teams Plasma Table Operator Relationship Specialty Start Date End Date Nilton Roach PA-C [address] [address] PCP - General Physician Mixer Operator Tablets 01/02/17 03/06/23 Mehreen Toussaint NP [address] [address] PCP - General 03/07/23 Nilton Roach PA-C [address] [address] Assigned PCP 12/13/16 12/21/22 [place] [address] [place] [address] Assigned Rheumatology Provider 02/26/20 03/27/24 [place] [address] [place] [address] Assigned Pulmonology Provider 12/30/21 05/03/23 Jean Guerin MD [address] [place] [address] Assigned PCP 12/22/22 05/29/23 Nilton Roach PA-C [address] [place] [address] Assigned PCP 05/30/23 02/25/24 Farzana Sabillon MD [address] [place] [address] Assigned Endocrinology Provider 08/27/23 [place] [address] [place] [address] Assigned Rheumatology Provider 03/28/24 06/27/24 Jean Guerin MD [address] [place] [address] Critical Care 06/12/24 Sobia Domingo MD [address] [place] [address] Assigned Rheumatology Provider 06/28/24 Carleen Garcia EP [facility] [address] [place] [address] Cardiac Rehabilitation Therapist 06/30/24 Kimberlee Logan RP Pharmacist Pharmacist 07/01/24 Kimberlee Logan RPH Assigned MTM Pharmacist 07/26/24 documented as of this encounter
--- OUTSIDE RECORDS SUMMARY | 2024-08-12 21:02 | XMS_ITS | Encounter Summary ---
Author Organization [place] Address [address] [place] [address] Care Team Providers Care Melter Supervisor Name Role Phone Mehreen Toussaint NP Primary Care Provider [phone] Farzana Sabillon MD Unavailable [phone] Jean Guerin MD Unavailable + [phone] Sobia Domingo MD Unavailable Carleen Garcia Unavailable [phone] Kimberlee Logan [facility] Unavailable Unavailable Encounter Details Date Type [...] Sex Assigned at Female 04/23/2018 4:04 PM EQUIPMENT MAINT TECH Legal Sex Female 9:39 AM EQUIPMENT MAINT TECH Gender Identity Female 04/23/2018 4:04 PM EQUIPMENT MAINT TECH Sexual Orientation Straight 04/23/2018 4: 04 PM EQUIPMENT MAINT TECH documented as of this encounter Plan of Treatment Upcoming Encounters Date Type Department Care Team ( st Contact Info) Description 10/05/2024 1:00 PM CDT Virtual Visit [facility] [address] [place] [phone] Farzana Sabillon MD [address] [place] [address] 10/06/2024 1:00 PM CDT Office Visit [facility] [address] [phone] Jean Guerin MD [address] [place] [address] 12/25/2024 10:30 AM CDT Office Visit [address] [phone] Sobia Domingo MD [address] [address] documented as of this encounter Visit Diagnoses Not on filedocumented in this encounter Additional Health Concerns Assessment Noted Time PHQ-9 Depression Total Score: 2 09/21/19 20 7:02 AM CDT documented as of this encounter Care Teams Melter Supervisor Relationship Specialty Start Date End Date Mehreen Toussaint NP [address] [address] PCP - General 03/07/23 Farzana Sabillon MD [address] [place] [address] Assigned Endocrinology Provider 08/27/23 Jean Guerin MD [address] [place] [address] Critical Care 06/12/24 Sobia Domingo MD [address] [facility] [address] [address] Assigned Rheumatology Provider 06/28/24 Carleen Garcia EP [facility] [address] [facility] [place], [place] [address] Cardiac Rehabilitation Therapist 06/30/24 Kimberlee Logan [facility] Pharmacist Pharmacist 07/01/24 documented as of this encounter
--- OUTSIDE RECORDS SUMMARY | 2024-08-12 21:02 | XMS_ITS | Encounter Summary ---
Author Organization [place] Address [address] [place] [address] Care Team Providers Care Almond Blancher Operator Name Role Phone Nilton Roach PA-C Primary Care Provider Nilton Roach PA-C Unavailable [phone] Betty Gupta MD Unavailable [phone] Gray Lora MD Unavailable [phone] Nik Bryan MD Unavailable Keegan Mcdonald MD Unavailable Keegan Mcdonald MD Unavailable [phone] Jean Guerin MD Unavailable + [phone] Mehreen Toussaint NP Primary Care Provider Nilton Roach PA-C Unavailable [phone] Farzana Sabillon MD Unavailable [phone] Saroj Romeo MD Unavailable Jean Guerin MD Unavailable + [phone] Sobia Domingo MD Unavailable Carleen Garcia Unavailable [phone] Kimberlee Logan [facility] Unavailable Unavailable Kimberlee Logan RP Unavailable Unavailable [...] Assigned at Female 04/23/2018 4:04 PM FOOD AND NUTRITION SUPERVISOR Legal Sex Female 9:39 AM FOOD AND NUTRITION SUPERVISOR Gender Identity Female 04/23/2018 4:04 PM FOOD AND NUTRITION SUPERVISOR Sexual Orientation Straight 04/23/2018 4: 04 PM FOOD AND NUTRITION SUPERVISOR COVID-19 Exposure Response Date Recorded In the last month, have you been in contact with someone who was confirmed or suspected to have Coronavirus / COVID-19? No / Unsure 08/05/2020 8:05 AM CDT documented as of this encounter Plan of Treatment Upcoming Encounters Date Type Department Care Team (Late st Contact Info) Description 10/05/2024 1:00 PM CDT Virtual Visit [facility] [address] [place] [phone] Farzana Sabillon MD [address] [facility] [address] [place], [place] [address] 10/06/2024 1:00 PM CDT Office Visit [facility] [address] [phone] Jean Guerin MD 6401 [place], [place] [address] 12/25/2024 10:30 AM CDT Office Visit [facility] [address] [place] [address] [address] [place] [phone] Sobia Domingo MD 606 [address] 215 [place], [place] [address] documented as of this encounter Visit Diagnoses Not on filedocumented in this encounter Additional Health Concerns Infection Onset Date Last Indicated Resolved Time Rule Out COVID-19 09/12/2020 09/12/2020 09/13/2020 5:31 PM CDT Assessment Noted Time PHQ-9 Depression Total Score: 2 09/21/19 7:02 AM CDT documented as of this encounter Care Teams Almond Blancher Operator Relationship Specialty Start Date End Date Nilton Roach PA-C [address] [place] [address] PCP - General Physician Kiln Hand 01/02/17 03/06/23 Mehreen Toussaint NP [address] [address] PCP - General 03/07/23 Nilton Roach PA-C [address] [place] [address] Assigned PCP 12/13/16 12/21/22 [place] [address] [place] [address] Assigned Rheumatology Provider 02/26/20 03/27/24 Gray Lora MD [address] [place] [address] Assigned Pulmonology Provider 02/26/20 05/27/21 Nik Bryan MD [address] [place] [address] Assigned Cancer Care Provider 02/26/20 11/17/21 Keegan Mcdonald MD [address] [place] [address] Assigned Pulmonology Provider 07/09/21 09/02/21 Keegan Mcdonald MD [address] [place] [address] Assigned Pulmonology Provider 12/30/21 05/03/23 Jean Guerin MD [address] [place] [address] Assigned PCP 12/22/22 05/29/23 Nilton Roach PA-C [address] [place] [address] Assigned PCP 05/30/23 02/25/24 Farzana Sabillon MD [address] [place], [place] [address] Assigned Endocrinology Provider 08/27/23 [place] [address] [place] [address] Assigned Rheumatology Provider 03/28/24 06/27/24 Jean Guerin MD [address] [place] [address] Critical Care 06/12/24 Sobia Domingo MD [address] [place] [address] Assigned Rheumatology Provider 06/28/24 Carleen Garcia EP [facility] [address] [place] [address] Cardiac Rehabilitation Therapist 06/30/24 Kimberlee Logan RP Pharmacist Pharmacist 07/01/24 Kimberlee Logan RP Assigned MTM Pharmacist 07/26/24 documented as of this encounter
--- OUTSIDE RECORDS SUMMARY | 2024-08-12 21:02 | XMS_ITS | Encounter Summary ---
Author Organization [place] Address [address] [place] [address] Care Team Providers Care Service Line Bus Cleaner Name Role Phone Mehreen Toussaint NP Primary Care Provider [phone] Farzana Sabillon MD Unavailable [phone] Jean Guerin MD Unavailable [phone] Sobia Domingo MD Unavailable Carleen Garcia Unavailable [phone] Kimberlee Logan [facility] Unavailable Unavailable Kimberlee Logan [facility] Unavailable Unavailable Encounter Details Date Type Department Care Team (Late st Contact Info) Description 07/06/2024 [facility]C [facility] [address] [address] Carol Lloyd Social History Tobacco [...] Sex Assigned at Female 04/23/2018 4:04 PM DIETICIAN Legal Sex Female 9:39 AM DIETICIAN Gender Identity Female 04/23/2018 4:04 PM DIETICIAN Sexual Orientation Straight 04/23/2018 4: 04 PM DIETICIAN documented as of this encounter Plan of Treatment Upcoming Encounters Date Type Department Care Team (Late st Contact Info) Description 10/05/2024 1:00 PM CDT Virtual Visit [facility] [address] [place] [phone] Farzana Sabillon MD [address] [place], [place] [address] 10/06/2024 1:00 PM CDT Office Visit [facility] [address] [phone] Jean Guerin MD 6401 [place] [address] 12/25/2024 10:30 AM CDT Office Visit [facility] [address] [phone] Sobia Domingo MD [address] [place] [address] 215 [place], [place] [address] documented as of this encounter Visit Diagnoses Not on filedocumented in this encounter Additional Health Concerns Assessment Noted Time PHQ-9 Depression Total Score: 2 09/21/19 20 7:02 AM CDT documented as of this encounter Care Teams Service Line Bus Cleaner Relationship Specialty Start Date End Date Mehreen Toussaint NP [facility] 225 [place] [address] PCP - General 03/07/23 Farzana Sabillon MD [address] [place] [address] Assigned Endocrinology Provider 08/27/23 Jean Guerin MD [address] [place] [address] Critical Care 06/12/24 Sobia Domingo MD [address] [place] [address] Assigned Rheumatology Provider 06/28/24 Carleen Garcia EP [facility] [address] [place] [address] [address] Cardiac Rehabilitation Therapist 06/30/24 Kimberlee Logan [facility] Pharmacist Pharmacist 07/01/24 Kimberlee Logan [facility] Assigned MTM Pharmacist 07/26/24 documented as of this encounter
--- OUTSIDE RECORDS SUMMARY | 2024-08-12 21:02 | XMS_ITS | Encounter Summary ---
Author Organization [place] Address [address] [place] [address]. [place] [address] Care Team Providers Care Customer Support Agent Name Role Phone Betty Gupta MD Unavailable [phone] Mehreen Toussaint NP Primary Care Provider Nilton Roach PA-C Unavailable Farzana Sabillon MD Unavailable Saroj Romeo MD Unavailable Jean Guerin MD Unavailable [phone] Sobia Domingo MD Unavailable Carleen Garcia Unavailable [phone] Kimberlee Logan [facility] Unavailable Unavailable Kimberlee Logan [facility] Unavailable Unavailable Encounter Details Date Type Department Care Team (Late st Contact Info) Description 07/01/2023 [facility] Medical Advice [facility] [address] 200 [place] [address] [place] [address] [place] [address] Social History Tobacco Use Types [...] Sex Assigned at Female 04/23/2018 4:04 PM WARD ATTENDANT Legal Sex Female 9:39 AM WARD ATTENDANT Gender Identity Female 04/23/2018 4:04 PM WARD ATTENDANT Sexual Orientation Straight 04/23/2018 4: 04 PM WARD ATTENDANT documented as of this encounter Plan of Treatment Upcoming Encounters Date Type Department Care Team (Late st Contact Info) Description 10/05/2024 1:00 PM CDT Virtual Visit [facility] [address] [place] [phone] Farzana Sabillon MD [address] [place] [address] 200 [place], [place] [address] 10/06/2024 1:00 PM CDT Office Visit [facility] [address] [phone] Jean Guerin MD 0[address] [place], [place] [address] 12/25/2024 10:30 AM CDT Office Visit [facility] [address] 200 [place] [address] Sobia Domingo MD [address] [place] [address] 215 [place], [place] [address] documented as of this encounter Visit Diagnoses Not on filedocumented in this encounter Additional Health Concerns Assessment Noted Time PHQ-9 Depression Total Score: 2 09/21/19 20 7:02 AM CDT documented as of this encounter Care Teams Customer Support Agent Relationship Specialty Start Date End Date Mehreen Toussaint NP [facility] 225 [place] [address] PCP - General 03/07/23 [place] [address] [place] [address] Assigned Rheumatology Provider 02/26/20 03/27/24 Nilton Roach PA-C [address] [place] [address] Assigned PCP 05/30/23 02/25/24 Farzana Sabillon MD [address] [place] [address] Assigned Endocrinology Provider 08/27/23 [place] [address] [place] [address] Assigned Rheumatology Provider 03/28/24 06/27/24 Jean Guerin MD [address] [place] [address] Critical Care 06/12/24 Sobia Domingo MD [address] [facility] 215 [place] [address] Assigned Rheumatology Provider 06/28/24 Carleen Garcia EP [facility] [address] [place] [address] Cardiac Rehabilitation Therapist 06/30/24 Kimberlee Logan [facility] Pharmacist Pharmacist 07/01/24 Kimberlee Logan [facility] Assigned MTM Pharmacist 07/26/24 documented as of this encounter
--- OUTSIDE RECORDS SUMMARY | 2024-08-12 21:02 | XMS_ITS | Encounter Summary ---
Author Organization [place] Address [address] [place] [address] Care Team Providers Care Community Relations Liaison Name Role Phone Betty Gupta MD Unavailable Keegan Mcdonald MD Unavailable [phone] Jean Guerin MD Unavailable [phone] Mehreen Toussaint NP Primary Care Provider Nilton Roach PA-C Unavailable Farzana Sabillon MD Unavailable Saroj Romeo MD Unavailable Jean Guerin MD Unavailable [phone] Sobia Domingo MD Unavailable Carleen Garcia Unavailable [phone] Kimberlee Logan [facility] Unavailable Unavailable Kimberlee Logan [facility] Unavailable Unavailable Encounter Details Date Type Department Care Team (Late st Contact Info) Description 04/19/2023 [facility] Medical Advice [facility] [address] [place] [address] Sultana Kim Social History Tobacco Use [...] Sex Assigned at Female 04/23/2018 4:04 PM PAPER BALING MACHINE OPERATOR Legal Sex Female 9:39 AM PAPER BALING MACHINE OPERATOR Gender Identity Female 04/23/2018 4:04 PM PAPER BALING MACHINE OPERATOR Sexual Orientation Straight 04/23/2018 4: 04 PM PAPER BALING MACHINE OPERATOR documented as of this encounter Plan of Treatment Upcoming Encounters Date Type Department Care Team (Late st Contact Info) Description 10/05/2024 1:00 PM CDT Virtual Visit [facility] [address] [place] [phone] Farzana Sabillon MD [address] [place] [address] 200 [place], [place] [address] 10/06/2024 1:00 PM CDT Office Visit [facility] [address] [phone] Jean Guerin MD 55[address] [place], [place] [address] 12/25/2024 10:30 AM CDT Office Visit [facility] [address] 200 [place] [phone] Sobia Domingo MD [address] [place] [address] 215 [place], [place] [address] documented as of this encounter Visit Diagnoses Not on filedocumented in this encounter Additional Health Concerns Assessment Noted Time PHQ-9 Depression Total Score: 2 09/21/19 20 7:02 AM CDT documented as of this encounter Care Teams Community Relations Liaison Relationship Specialty Start Date End Date Mehreen Toussaint NP [facility] 225 [place] [address] PCP - General 03/07/23 [place] [address] [place] [address] Assigned Rheumatology Provider 02/26/20 03/27/24 [place] [address] [place] [address] Assigned Pulmonology Provider 12/30/21 05/03/23 Jean Guerin MD [address] [place] [address] Assigned PCP 12/22/22 05/29/23 Nilton Roach PA-C [address] [facility] 100 [place] [address] Assigned PCP 05/30/23 02/25/24 Farzana Sabillon MD [address] [place] [address] Assigned Endocrinology Provider 08/27/23 [place] [address] [place] [address] Assigned Rheumatology Provider 03/28/24 06/27/24 Jean Guerin MD [address] [place] [address] Critical Care 06/12/24 Sobia Domingo MD [address] [place] [address] Assigned Rheumatology Provider 06/28/24 Carleen Garcia EP [facility] [address] [place] [address] Cardiac Rehabilitation Therapist 06/30/24 Kimberlee Logan RP Pharmacist Pharmacist 07/01/24 Kimberlee Logan RPH Assigned MTM Pharmacist 07/26/24 documented as of this encounter
--- OUTSIDE RECORDS SUMMARY | 2024-08-12 21:02 | XMS_ITS | Encounter Summary ---
Author Organization [place] Address [address] [place] [address] Care Team Providers Care Dragline Engineer Name Role Phone Mehreen Toussaint NP Primary Care Provider Farzana Sabillon MD Unavailable [phone] Jean Guerin MD Unavailable + [phone] Sobia Domingo MD Unavailable Carleen Garcia Unavailable [phone] Kimberlee Logan [facility] Unavailable Unavailable Reason for Visit * Med Therapy Management (Routine: Next available opening) - Closed Specialty Diagnoses / Procedures Referred By Contsapphire t Referred To Contact Pharmacist Diagnoses Systemic lupus erythematosus, organ or system involvement unspecified (H) Sobia Domingo MD [address] [place] [address] Phone: tel: fax: Referral ID Status Reason Start Date Expiration Date Visits Re quested Visits Authorized [id number] Closed 06/26/2024 06/26/2025 1 1 Encounter Details Date Type Department Care Team (Latest Contact Info) Description 07/01/2024 2:30 PM VEST MAKER Virtual Visit [facility] Rheumatology [facility] [address] [facility] [address] [place] [address] Sobia Domingo MD [address] [place] [address] Kimberlee Logan RPH Systemic lupus [...] Sex Assigned at Female 04/23/2018 4:04 PM VEST MAKER Legal Sex Female 9:39 AM VEST MAKER Gender Identity Female 04/23/2018 4:04 PM VEST MAKER Sexual Orientation Straight 04/23/2018 4: 04 PM VEST MAKER documented as of this encounter Patient Instructions * Patient Instructions* Kimberlee Logan RPH - 07/01/2024 2:30 PM VEST MAKER Recommendations from today's MTM visit: Once approved, restart Benlysta 200 mg under the skin weekly. Report infection, planned surgery, and/or disease flare to the rheumatology department. If PAP is required our liaisons will help you sign up for this. Continue to limit ibuprofen use given Xarelto. Continue turmeric gummies if finding benefit. Follow-up: 3 months after restart. Sees grapple crew leader 12/25/24. Needs CMR at follow up, relatively brief discussion today. It was great speaking with you today. I value your experience and would be very thankful for your time in providing feedback in our clinic survey. In the next few days, you may receive an email or text message from [employer] with a link to a survey related to your ???clinical pharmacist. To schedule another MTM appointment, please call the clinic directly or you may call the MTM scheduling line at [phone]. My Clinical Pharmacist's contact information: Please feel free to contact me with any questions or concerns you have. Kimberlee Logan, PharmD Medication Therapy Management Pharmacist [facility] Rheumatology Clinic MAKER documented in this encounter Progress Notes * Kimberlee Logan, [facility] - 07/01/2024 2:30 PM CST Medication Therapy [...] benefit. Follow-up: 3 months after restart. Sees grapple crew leader 12/25/24. Needs CMR at follow up, relatively [...] summary of these recommendations was sent via [employer]. Kimberlee Logan, PharmD Medication Therapy Management Pharmacist [facility] Rhe[facility] Clinic Telemedicine Visit Details Type of [...] Adherence/Education Identified Date: 07/01/2024 Completed Date: 07/01/2024 MAKER documented in this encounter Plan of Treatment Upcoming Encounters Date Type Department Care Team (Late st Contact Info) Description 10/05/2024 1:00 PM CDT Virtual Visit [facility] [address] [place] [address] Farzana Sabillon MD [address] [place], [place] [address] 10/06/2024 1:00 PM CDT Office Visit [facility] for Lung Science and Health [address] [address] Jean Guerin MD [address] [address] 12/25/2024 10:30 AM CDT Office Visit [facility] [address] [facility] 200 [place] [address] Sobia Domingo MD [address] [facility] [address] [place] [address] documented as of this encounter Visit Diagnoses Diagnosis Systemic lupus erythematosus, unspecified SLE type, unspecified organ involvement status (H)- Primary documented in this encounter Additional Health Concerns Assessment Noted Time PHQ-9 Depression Total Score: 2 09/21/19 20 7:02 AM CDT documented as of this encounter Care Teams Dragline Engineer Relationship Specialty Start Date End Date Mehreen Toussaint NP [address] [address] PCP - General 03/07/23 Farzana Sabillon MD [address] [facility] 200 [place] [address] Assigned Endocrinology Provider 08/27/23 Jean Guerin MD [address] [place] [address] Critical Care 06/12/24 Sobia Domingo MD [address] [facility] [address] [place] [address] Assigned Rheumatology Provider 06/28/24 Carleen Garcia EP [facility] [address] [facility] [place] [place] [address] Cardiac Rehabilitation Therapist 06/30/24 Kimberlee Logan, [facility] Pharmacist Pharmacist 07/01/24 documented as of this encounter
--- OUTSIDE RECORDS SUMMARY | 2024-08-12 21:02 | XMS_ITS | Encounter Summary ---
Author Organization [place] Address [address] [place] [address] Care Team Providers Care Non Profit Financial Controller Name Role Phone Nilton Roach PA-C Primary Care Provider Nilton Roach PA-C Unavailable [phone] Betty Gupta MD Unavailable [phone] Gray Lora MD Unavailable [phone] Reginald Wen MD Unavailable [phone] Nik Bryan MD Unavailable Tracie Godinez MD Unavailable + [phone] Reginald Wen MD Unavailable +[phone] Keegan Mcdonald MD Unavailable [phone] Keegan Mcdonald MD Unavailable [phone] Jean Guerin MD Unavailable + [phone] Mehreen Toussaint NP Primary Care Provider Nilton Roach PA-C Unavailable [phone] Farzana Sabillon MD Unavailable [phone] Saroj Romeo MD Unavailable Jean Guerin MD Unavailable + [phone] Sobia Domingo MD Unavailable Carleen Garcia EP Unavailable Kimberlee Logan [facility] Unavailable Unavailable DesmondJdn Antonio [facility] Unavailable Unavailable Encounter Details Date Type Department Care Team (Late st Contact Info) Description 05/03/2020 MyC Medical Advice [facility] [place] [address] [address] [place] [address] Chana Gillette CMA Social History [...] Sex Assigned at Female 04/23/2018 4:04 PM BLASTING GANG MINER Legal Sex Female 9:39 AM BLASTING GANG MINER Gender Identity Female 04/23/2018 4:04 PM BLASTING GANG MINER Sexual Orientation Straight 04/23/2018 4: 04 PM BLASTING GANG MINER documented as of this encounter Plan of Treatment Upcoming Encounters Date Type Department Care Team (Late st Contact Info) Description 10/05/2024 1:00 PM CDT Virtual Visit [facility] [address] [facility] [address] [place] [address] Farzana Sabillon MD [address] [place] [address] 200 [place], [place] [address] 10/06/2024 1:00 PM CDT Office Visit [facility] [place] [facility] [address] [address] Jean Guerin MD [address] [address] 12/25/2024 10:30 AM CDT Office Visit [facility] [address] [place] [phone] Sobia Domingo MD [address] [address] documented as of this encounter Visit Diagnoses Not on filedocumented in this encounter Additional Health Concerns Infection Onset Date Last Indicated Resolved Time Rule Out COVID-19 09/12/2020 09/12/2020 09/13/2020 5:31 PM CDT Assessment Noted Time PHQ-9 Depression Total Score: 2 09/21/19 7:02 AM CDT documented as of this encounter Care Teams Non Profit Financial Controller Relationship Specialty Start Date End Date Nilton Raoch PA-C [address] [place] [address] PCP - General Physician Supervisor Communications And Signals 01/02/17 03/06/23 Mehreen Toussaint NP [address] [address] PCP - General 03/07/23 Nilton Roach PA-C [address] [place] [address] Assigned PCP 12/13/16 12/21/22 [place] [address] [place] [address] Assigned Rheumatology Provider 02/26/20 03/27/24 Gray Lora MD [address] [place] [address] Assigned Pulmonology Provider 02/26/20 05/27/21 Reginald Wen MD [address] [place] [address] Assigned Musculoskeletal Provider 05/29/20 07/19/20 Nik Bryan MD [address] [place] [address] Assigned Cancer Care Provider 02/26/20 11/17/21 Tracie Godinez MD [address] [address] Assigned Musculoskeletal Provider 05/22/20 05/28/20 Reginald Wen MD [address] [place] [address] Assigned Musculoskeletal Provider 02/26/20 05/21/20 Keegan Mcdonald MD [address] [place] [address] Assigned Pulmonology Provider 07/09/21 09/02/21 Keegan Mcdonald MD [address] [place] [address] Assigned Pulmonology Provider 12/30/21 05/03/23 Jean Gueirn MD [address] [place] [address] Assigned PCP 12/22/22 05/29/23 Nilton Roach PA-C [address] [address] Assigned PCP 05/30/23 02/25/24 Farzana Sabillon MD [address] 200 [place] [address] Assigned Endocrinology Provider 08/27/23 [place] [address] [place] [address] Assigned Rheumatology Provider 03/28/24 06/27/24 Jean Guerin MD [address] [facility] [place] [address] Critical Care 06/12/24 Sobia Domingo MD [address] [address] Assigned Rheumatology Provider 06/28/24 Carleen Garcia EP [facility] [address] [place] [address] Cardiac Rehabilitation Therapist 06/30/24 Kimberlee Logan RP Pharmacist Pharmacist 07/01/24 Kimberlee Logan RPH Assigned MTM Pharmacist 07/26/24 documented as of this encounter
--- OUTSIDE RECORDS SUMMARY | 2024-08-12 21:02 | XMS_ITS | Encounter Summary ---
Author Organization [place] Address [facility] [place] [address] Care Team Providers Care Construction Quality Control Manager Name Role Phone Mehreen Toussaint NP Primary Care Provider Farzana Sabillon MD Unavailable [phone] Jean Guerin MD Unavailable [phone] Sobia Domingo MD Unavailable Carleen Garcia Unavailable Kimberlee Logan [facility] Unavailable Unavailable Reason for Visit * Reason Onset Date Comments Prior Auth - Medication 07/02/2024 Benlysta Encounter Details Date Type Department Care Team (Late st Contact Info) Description 07/02/2024 Telephone [facility] Specialty [address] [place] [address] Sobia Domingo MD [address] [place] [address] Prior Auth - Medication (Benlysta) [...] Sex Assigned at Female 04/23/2018 4:04 PM CANDY WRAPPING MACHINE OPERATOR Legal Sex Female 9:39 AM CANDY WRAPPING MACHINE OPERATOR Gender Identity Female 04/23/2018 4:04 PM CANDY WRAPPING MACHINE OPERATOR Sexual Orientation Straight 04/23/2018 4: 04 PM CANDY WRAPPING MACHINE OPERATOR documented as of this encounter Miscellaneous Notes * Telephone Encounter - Carol Lloyd - 07/07/2024 9:33 AM CST She is okay with the total cost, no M3P or FPAP needed Y WRAPPING MACHINE OPERATOR * Telephone Encounter - Carol Lloyd - 07/06/2024 4:01 PM CST Prior Authorization Approval Medication: BENLYSTA 200 MG/ML [place] SOAJ Authorization Effective Date: 07/06/2024 Authorization Expiration Date: 07/03/2025 Approved Dose/Quantity: 4 Reference #: [id number] Insurance Company: Medicare Blue - Expected CoPay: $ CoPay Card Available: No Financial Assistance Needed: reached out to pt Which Pharmacy is filling the prescription: [facility] - [place] [phone] [address] [facility] Pharmacy Notified: yes Patient Notified: yes Y WRAPPING MACHINE OPERATOR * Telephone Encounter - Carol Lloyd - 07/02/2024 4:14 PM CST PA Initiation Medication: BENLYSTA 200 MG/ML [place] SOAJ Insurance Company: Medicare Blue - Pharmacy Filling the Rx: [facility]IL[facility]SPECIALTY [facility]Y - [address] Filling Pharmacy Phone: Filling Pharmacy Fax: Start Date: 07/02/2024 BXPYUXAK Y WRAPPING MACHINE OPERATOR documented in this encounter Plan of Treatment Upcoming Encounters Date Type Department Care Team (Late st Contact Info) Description 10/05/2024 1:00 PM CDT Virtual Visit [facility] [address] [place] [phone] Farzana Sabillon MD [address] [place] [address] 10/06/2024 1:00 PM CDT Office Visit [facility] for Lung Science and [address] [phone] Jean Guerin MD [address] [place] [address] 12/25/2024 10:30 AM CDT Office Visit [address] [phone] Sobia Domingo MD [address] [address] [place], [place] [address] documented as of this encounter Visit Diagnoses Not on filedocumented in this encounter Additional Health Concerns Assessment Noted Time PHQ-9 Depression Total Score: 2 09/21/19 20 7:02 AM CDT documented as of this encounter Care Teams Construction Quality Control Manager Relationship Specialty Start Date End Date Mehreen Toussaint NP [facility] [address] [place] [address] PCP - General 03/07/23 Farzana Sabillon MD [address] [place] [address] Assigned Endocrinology Provider 08/27/23 Jean Guerin MD [address] [address] Critical Care 06/12/24 Sobia Domingo MD [address] [facility] [address] [place] [address] Assigned Rheumatology Provider 06/28/24 Carleen Garcia EP [facility] [address] [address] Cardiac Rehabilitation Therapist 06/30/24 Kimberlee Logan [facility] Pharmacist Pharmacist 07/01/24 documented as of this encounter
--- OUTSIDE RECORDS SUMMARY | 2024-08-12 21:02 | XMS_ITS | Encounter Summary ---
Author Organization [place] Address [address] [place] [address] Care Team Providers Care Lab Clerk Name Role Phone Mehreen Toussaint NP Primary Care Provider Farzana Sabillon MD Unavailable [phone] Jean Guerin MD Unavailable [phone] Sobia Domingo MD Unavailable Encounter Details Date [...] Sex Assigned at Female 04/23/2018 4:04 PM HULLER OPERATOR Legal Sex Female 9:39 AM HULLER OPERATOR Gender Identity Female 04/23/2018 4:04 PM HULLER OPERATOR Sexual Orientation Straight 04/23/2018 4: 04 PM HULLER OPERATOR documented as of this encounter Plan of Treatment Upcoming Encounters Date Type Department Care Team (Late st Contact Info) Description 10/05/2024 1:00 PM CDT Virtual Visit [facility] [address] [place] [address] Farzana Sabillon MD [address] [place] [address] 10/06/2024 1:00 PM CDT Office Visit [facility] for [facility] Clinic [address] [phone] Jean Guerin MD [address] [place] [address] 12/25/2024 10:30 AM CDT Office Visit [facility] [address] [facility] 200 [place] [phone] Sobia Domingo MD [address] [address] documented as of this encounter Visit Diagnoses Not on filedocumented in this encounter Additional Health Concerns Assessment Noted Time PHQ-9 Depression Total Score: 2 09/21/19 20 7:02 AM CDT documented as of this encounter Care Teams Lab Clerk Relationship Specialty Start Date End Date Mehreen Toussaint NP [address] [address] PCP - General 03/07/23 Farzana Sabillon MD [address] [place] [address] Assigned Endocrinology Provider 08/27/23 Jean Guerin MD [address] [place] [address] Critical Care 06/12/24 Sobia Domingo MD [address] [address] Assigned Rheumatology Provider 06/28/24 documented as of this encounter
--- OUTSIDE RECORDS SUMMARY | 2024-08-12 21:03 | XMS_ITS | Encounter Summary ---
Author Organization [place] Address [address] [place] [address] Care Team Providers Care Stadium Manager Name Role Phone Mehreen Toussaint NP Primary Care Provider Farzana Sabillon MD Unavailable [phone] Jean Guerin MD Unavailable + [phone] Sobia Domingo MD Unavailable Carleen Garcia Unavailable [phone] DesmondKimberlee balbuena [facility] Unavailable Unavailable DesmondKimberlee [facility] Unavailable Unavailable Reason for Visit * Rehab Therapy Cardiac Therapy (Routine: Next available opening) - Authorized Specialty Diagnoses / Procedures Referred By Contac t Referred To Contact CARDIAC REHAB Diagnoses Stage 4 very severe COPD by GOLD classification (H) [facility] [address] [place] [address] Phone: tel: Referral ID Status Reason Start Date Expiration Date V isits Requested Visits Authorized [id number] Authorized 06/26/2024 05/05/2025 72 72 Encounter Details Date Type Department Care Team (Latest Contact Info) Description 07/28/2024 10:18 AM CDT - 07/28/2024 11:59 PM CDT Hospital Encounter [facility] Cardiac and Pulmonary Rehabilitation [address] [place] [address] Jean Guerin MD [address] [address] 1, Rh Pulmonary Rehab Discharge Disposition: Home [...] Assigned at Female 04/23/2018 4:04 PM CARE TECH Legal Sex Female 9:39 AM CARE TECH Gender Identity Female 04/23/2018 4:04 PM CARE TECH Sexual Orientation Straight 04/23/2018 4: 04 PM CARE TECH documented as of this encounter Medications at [...] Description 10/05/2024 1:00 PM CDT Virtual Visit [facility] [address] [place] [address] Farzana Sabillon MD [address] [facility] 200 [place] [address] 10/06/2024 1:00 PM CDT Office Visit [facility] [address] [address] Jean Guerin MD [address] [place] [address] 12/25/2024 10:30 AM CDT Office Visit [facility] [place] [address] [facility] 200 [place] [phone] Sobia Domingo MD [address] [place], [place] [address] documented as of this encounter Visit Diagnoses Not on filedocumented in this encounter Additional Health Concerns Assessment Noted Time PHQ-9 Depression Total Score: 2 09/21/19 20 7:02 AM CDT documented as of this encounter Care Teams Stadium Manager Relationship Specialty Start Date End Date Mehreen Toussaint NP [facility] [address] [place] [address] PCP - General 03/07/23 Farzana Sabillon MD [address] [facility] 200 [place] [address] Assigned Endocrinology Provider 08/27/23 Jean Guerin MD [address] [place] [address] Critical Care 06/12/24 Sobia Domingo MD [address] [place] [address] Assigned Rheumatology Provider 06/28/24 Carleen Garcia EP [facility] [address] [place] [address] Cardiac Rehabilitation Therapist 06/30/24 Kimberlee Logan RPH Pharmacist Pharmacist 07/01/24 Kimberlee Logan RPH Assigned MTM Pharmacist 07/26/24 documented as of this encounter
--- OUTSIDE RECORDS SUMMARY | 2024-08-12 21:03 | XMS_ITS | Encounter Summary ---
Author Organization [place] Address [address] [place] [address] Care Team Providers Care Receiving And Processing Supervisor Name Role Phone Nilton Roach PA-C Primary Care Provider Nilton Roach PA-C Unavailable [phone] Betty Gupta MD Unavailable +[phone] Gray Lora MD Unavailable [phone] Reginald Wen MD Unavailable +[phone] Nik Bryan MD Unavailable Tracie Godinez MD Unavailable + [phone] Reginald Wen MD Unavailable +[phone] Keegan Mcdonald MD Unavailable +[phone] Keegan Mcdonald MD Unavailable +[phone] Jean Guerin MD Unavailable + [phone] Mehreen Toussaint NP Primary Care Provider Nilton Roach PA-C Unavailable +[phone] Farzana Sabillon MD Unavailable +[phone] Saroj Romeo MD Unavailable Jean Guerin MD Unavailable + [phone] Sobia Domingo MD Unavailable Carleen Garcia EP Unavailable Kimberlee Logan [facility] Unavailable Unavailable Kimberlee Logan [facility] Unavailable Unavailable Encounter Details Date Type Department Care Team (Late Contact Info) Description 08/17/2019 MyC Medical Advice [facility] 290 [facility] 100 [place] [phone] Nilton Roach PA-C 290 [facility] 100 [place], [place] [address] Social History Tobacco Use Types Packs/Day Years Used Date Smoking Tobacco: Some Days Cigarettes 1 40 Smokeless Tobacco: Never Comments:Occasional Alcohol Use Standard Drinks/Week Comments No 0 (1 standard drink = 0.6 oz pur e alcohol) PHQ-2 Answer Date Recorded PHQ-2 Score 0 05/14/2018 Comments No Sex and Gender Information Value Date Recorded Sex Assigned at Female 04/23/2018 4:04 PM UTILITY MAINTENANCE WORKER Legal Sex Female 9:39 AM UTILITY MAINTENANCE WORKER Gender Identity Female 04/23/2018 4:04 PM UTILITY MAINTENANCE WORKER Sexual Orientation Straight 04/23/2018 4 :04 PM UTILITY MAINTENANCE WORKER COVID-19 Exposure Response Date Recorded In the last month, have you been in contact with someone who was confirmed or suspected to have Coronavirus / COVID-19? No / Unsure 08/07/2019 11:10 AM CDT documented as of this encounter Plan of Treatment Upcoming Encounters Date Type Department Care Team ([facility] Contact Info) Description 10/05/2024 1:00 PM CDT Virtual Visit [facility] [address] [place] [address] Farzana Sabillon MD [address] [facility] 200 [place], [place] [address] 10/06/2024 1:00 PM CDT Office Visit [facility] [address] [address] Jean Guerin MD [address] [place] [address] 12/25/2024 10:30 AM CDT Office Visit [facility] [place] [address] [facility] [address] [place] [phone] Sobia Domingo MD [address] [facility] 215 [place] [address] documented as of this encounter Visit Diagnoses Not on filedocumented in this encounter Additional Health Concerns Infection Onset Date Last Indicated Resolved Time Rule Out COVID-19 09/12/2020 09/12/2020 09/13/2020 5:31 PM CDT Assessment Noted Time PHQ-9 Depression Total Score: 1 05/30/19 20 7:03 AM UTILITY MAINTENANCE WORKER documented as of this encounter Care Teams Receiving And Processing Supervisor Relationship Specialty Start Date End Date Nilton Roach PA-C [address] [place] [address] PCP - General Physician Career Agent 01/02/17 03/06/23 Mehreen Toussaint NP [address] [address] PCP - General 03/07/23 Nilton Roach PA-C [address] [place] [address] Assigned PCP 12/13/16 12/21/22 [place] [address] [place] [address] Assigned Rheumatology Provider 02/26/20 03/27/24 Gray Lora MD 719 [place] [address] Assigned Pulmonology Provider 02/26/20 05/27/21 Reginald Wen MD 4000 [place] [address] Assigned Musculoskeletal Provider 05/29/20 07/19/20 Nik Bryan MD [address] [place] [address] Assigned Cancer Care Provider 02/26/20 11/17/21 Tracie Godinez MD [address] [address] Assigned Musculoskeletal Provider 05/22/20 05/28/20 Reginald Wen MD 4000 [place] [address] Assigned Musculoskeletal Provider 02/26/20 05/21/20 Keegan Mcdonald MD [address] [place] [address] Assigned Pulmonology Provider 07/09/21 09/02/21 Keegan Mcdonald MD [address] [place] [address] Assigned Pulmonology Provider 12/30/21 05/03/23 Jean Guerin MD [address] [place] [address] Assigned PCP 12/22/22 05/29/23 Nilton Roach PA-C [address] [place] [address] [place] [address] Assigned PCP 05/30/23 02/25/24 Farzana Sabillon MD [address] [place] 200 [place] [address] Assigned Endocrinology Provider 08/27/23 [place] [address] [place] [address] Assigned Rheumatology Provider 03/28/24 06/27/24 Jean Guerin MD [address] [facility] [place] [address] Critical Care 06/12/24 Sobia Domingo MD [address] [place] 215 [place] [address] Assigned Rheumatology Provider 06/28/24 Carleen Garcia EP [facility] [address] [place] [address] Cardiac Rehabilitation Therapist 06/30/24 Kimberlee Logan [facility] Pharmacist Pharmacist 07/01/24 Kimberlee Logan RPH Assigned MTM Pharmacist 07/26/24 documented as of this encounter
--- OUTSIDE RECORDS SUMMARY | 2024-08-12 21:03 | XMS_ITS | Encounter Summary ---
Author Organization [place] Address [address] [place] [address] Care Team Providers Care Basket Operator Name Role Phone Nilton Roach PA-C Primary Care Provider Nilton Roach PA-C Unavailable [phone] Nilton Roach PA-C Unavailable +[phone] Betty Gupta MD Unavailable +[phone] Gray Lora MD Unavailable +[phone] Reginald Wen MD Unavailable +[phone] Nik Bryan MD Unavailable Tracie Godinez MD Unavailable + [phone] Reginald Wen MD Unavailable +[phone] Keegan Mcdonald MD Unavailable +[phone] Keegan Mcdonald MD Unavailable +[phone] Jean Guerin MD Unavailable + [phone] Mehreen Toussaint NP Primary Care Provider Nilton Roach PA-C Unavailable +[phone] Farzana Sabillon MD Unavailable +[phone] Saroj Romeo MD Unavailable Jean Guerin MD Unavailable [phone] Sobia Doimngo MD Unavailable Carleen Garcia Unavailable [phone] Kimberlee Logan [facility] Unavailable Unavailable Kimberlee Logan [facility] Unavailable Unavailable Encounter Details Date Type Department Care Team (Late st Contact Info) Description 01/13/2018 [facility] Medical Advice [facility] Scheduling [address] [place] [phone] Milagro Tanner Social History Tobacco Use Types Packs/Day Years Used Date Smoking Tobacco: Some Days Cigarettes Smokeless Tobacco: Never Comments:Occasional Alcohol Use Standard Drinks/Week Comments No 0 (1 standard drink = 0.6 oz pur e alcohol) Comments No Sex and Gender Information Value Date Recorded Sex Assigned at Female 04/23/2018 4:04 PM DROP PRESS HAND Legal Sex Female 9:39 AM DROP PRESS HAND Gender Identity Female 04/23/2018 4:04 PM DROP PRESS HAND Sexual Orientation Straight 04/23/2018 4: 04 PM DROP PRESS HAND documented as of this encounter Plan of Treatment Upcoming Encounters Date Type Department Care Team (Late st Contact Info) Description 10/05/2024 1:00 PM CDT Virtual Visit [facility] [address] [facility] [address] [place] [phone] Farzana Sabillon MD [address] [place] 200 [place] [address] 10/06/2024 1:00 PM CDT Office Visit [facility] [address] [phone] Jean Guerin MD [address] [facility] [place] [address] 12/25/2024 10:30 AM CDT Office Visit [facility] [address] [place] [phone] Sobia Domingo MD [address] [facility] 215 [place] [address] documented as of this encounter Visit Diagnoses Not on filedocumented in this encounter Additional Health Concerns Infection Onset Date Last Indicated Resolved Time Rule Out COVID-19 09/12/2020 09/12/2020 09/13/2020 5:31 PM CDT Assessment Noted Time PHQ-9 Depression Total Score: 3 12/14/19 18 2:01 PM CDT documented as of this encounter Care Teams Basket Operator Relationship Specialty Start Date End Date Nilton Roach PA-C [address] [address] PCP - General Physician Appliance Service Technician 01/02/17 03/06/23 Nilton Roach PA-C [address] [address] PCP - Assigned PCP 12/13/16 07/08/18 Mehreen Toussaint NP [address] [address] PCP - General 03/07/23 Nilton Roach PA-C [address] [place] [address] Assigned PCP 12/13/16 12/21/22 [place] [address] [place] [address] Assigned Rheumatology Provider 02/26/20 03/27/24 Gray Lora MD 909 [place] [address] Assigned Pulmonology Provider 02/26/20 05/27/21 Reginald Wen MD 4000 [place], [place] [address] Assigned Musculoskeletal Provider 05/29/20 07/19/20 Nik Bryan MD [address] [place] [address] Assigned Cancer Care Provider 02/26/20 11/17/21 Tracie Godinez MD [address] 4[address] Assigned Musculoskeletal Provider 05/22/20 05/28/20 Reginald Wen MD 4000 [place] [address] Assigned Musculoskeletal Provider 02/26/20 05/21/20 Keegan Mcdonald MD [address] [place] [address] Assigned Pulmonology Provider 07/09/21 09/02/21 Keegan Mcdonald MD [address] [place] [address] Assigned Pulmonology Provider 12/30/21 05/03/23 Jean Guerin MD [address] [place] [address] Assigned PCP 12/22/22 05/29/23 Nilton Roach PA-C [address] [address] Assigned PCP 05/30/23 02/25/24 Farzana Sabillon MD [address] [place] 200 [place], [place] [address] Assigned Endocrinology Provider 08/27/23 [place] [address] [facility] [place] [address] Assigned Rheumatology Provider 03/28/24 06/27/24 Jean Guerin MD [address] [facility] [address] [place] [address] Critical Care 06/12/24 Sobia Domingo MD [address] [place] 215 [place] [address] Assigned Rheumatology Provider 06/28/24 Carleen Garcia EP [facility] [address] [facility] [place] [address] Cardiac Rehabilitation Therapist 06/30/24 Kimberlee Logan RP Pharmacist Pharmacist 07/01/24 Kimberlee Logan RPH Assigned MTM Pharmacist 07/26/24 documented as of this encounter
--- OUTSIDE RECORDS SUMMARY | 2024-08-12 21:03 | XMS_ITS | Clinical Summary ---
Author Organization [facility] Address [address] [place] [address] Care Team Providers Care Cricket Coach Name Role Phone Nilton Roach Primary Care Provider [phone] Allergies Active Allergy Reactions Criticality Noted Date [...] Comments Blood Pressure 131/80 06/30/2019 2:47 PM NURSES' ASSOCIATION COUNSELOR Pulse 102 06/30/2019 2:49 PM NURSES' ASSOCIATION COUNSELOR Temperature 36.7 C (98 F) 06/30/2019 2:49 PM NURSES' ASSOCIATION COUNSELOR Respiratory Rate 16 06/30/2019 2:49 PM NURSES' ASSOCIATION COUNSELOR Oxygen Saturation 91% 06/30/2019 2:49 PM NURSES' ASSOCIATION COUNSELOR Inhaled Oxygen Concentration - - Weight 44.1 kg (97 lb 4.8 oz) 06/30/2019 6:00 AM NURSES' ASSOCIATION COUNSELOR Height 152.4 cm (5') 06/27/2019 5:45 AM NURSES' ASSOCIATION COUNSELOR Body Mass Index 19 06/27/2019 5:45 AM NURSES' ASSOCIATION COUNSELOR Plan of Treatment Health Maintenance Due Date [...] 2024 Influenza Vaccine (Season Ended) 2025 Insurance [facility] [employer] [facility] Advance Directives For more information, please contact: [phone] * Full Code (Latest Code Status on File) Date Activated Date Inactivated Comments 06/27/2019 6:20 AM 06/30/2019 10:48 PM Question Answer Comments How was code status determined? Patient Care Teams Cricket Coach Relationship Specialty Start Date End Date Nilton Roach PA [address] [place] [address] 100 [place] [address] PCP - General 02/20/17
--- OUTSIDE RECORDS SUMMARY | 2024-08-12 21:03 | XMS_ITS | Encounter Summary ---
Author Organization [place] Address [address] [place] [address] Care Team Providers Care Server Name Role Phone Mehreen Toussaint NP Primary Care Provider Farzana Sabillon MD Unavailable [phone] Jean Guerin MD Unavailable + [phone] Sobia Domingo MD Unavailable Carleen Garcia Unavailable [phone] Kimberlee Logan [facility] Unavailable Unavailable Kimberlee Logan [facility] Unavailable Unavailable Encounter Details Date [...] Assigned at Female 04/23/2018 4:04 PM CORPORATE QUALITY ENGINEER Legal Sex Female 9:39 AM CORPORATE QUALITY ENGINEER Gender Identity Female 04/23/2018 4:04 PM CORPORATE QUALITY ENGINEER Sexual Orientation Straight 04/23/2018 4: 04 PM CORPORATE QUALITY ENGINEER documented as of this encounter Plan of Treatment Upcoming Encounters Date Type Department Care Team (Late st Contact Info) Description 10/05/2024 1:00 PM CDT Virtual Visit [facility] [address] [place] [phone] Farzana Sabillon MD [address] [facility] 200 [place] [address] 10/06/2024 1:00 PM CDT Office Visit [facility] [address] [phone] Jean Guerin MD [address] [place] [address] 12/25/2024 10:30 AM CDT Office Visit [address] [phone] Sobia Domingo MD [address] [place], [place] [address]E [facility] 215 [place], [place] [address] documented as of this encounter Visit Diagnoses Not on filedocumented in this encounter Additional Health Concerns Assessment Noted Time PHQ-9 Depression Total Score: 2 09/21/19 20 7:02 AM CDT documented as of this encounter Care Teams Server Relationship Specialty Start Date End Date Mehreen Toussaint NP [address] [address] PCP - General 03/07/23 Farzana Sabillon MD [address] [place] 200 [place] [address] Assigned Endocrinology Provider 08/27/23 Jean Guerin MD [address] [place] [address] Critical Care 06/12/24 Sobia Domingo MD [address] [facility] [address] [address] Assigned Rheumatology Provider 06/28/24 Carleen Garcia EP [facility] [address] [facility] [place] [address] Cardiac Rehabilitation Therapist 06/30/24 Kimberlee Logan RP Pharmacist Pharmacist 07/01/24 Kimberlee Logan RPH Assigned MTM Pharmacist 07/26/24 documented as of this encounter
--- OUTSIDE RECORDS SUMMARY | 2024-08-12 21:03 | XMS_ITS | Encounter Summary ---
Author Organization [place] Address [address] [place] [address] Care Team Providers Care Auto Adjudication Specialist Name Role Phone Mehreen Toussaint NP Primary Care Provider [phone] Farzana Sabillon MD Unavailable +[phone] Jean Guerin MD Unavailable + [phone] Sobia Domingo MD Unavailable Carleen Garcia Unavailable +[phone] DesmondKimberlee balbuena [facility] Unavailable Unavailable DesmondKimberlee [facility] Unavailable Unavailable Reason for Visit * Rehab Therapy Cardiac Therapy (Routine: Next available opening) - Authorized Specialty Diagnoses / Procedures Referred By Contac t Referred To Contact CARDIAC REHAB Diagnoses Stage 4 very severe COPD by GOLD classification (H) [facility] [address] [place] [phone] Phone: tel: Referral ID Status Reason Start Date Expiration Date V isits Requested Visits Authorized [id number] Authorized 06/26/2024 05/05/2025 72 72 Encounter Details Date Type Department Care Team (Latest Contact Info) Description 07/30/2024 10:29 AM CDT - 07/30/2024 11:59 PM CDT Hospital Encounter [facility] Cardiac and Pulmonary Rehabilitation [address] [place] [address] Jean Guerin MD [address] [place] [address] 1, Rh Pulmonary Rehab Discharge Disposition: Home [...] Assigned at Female 04/23/2018 4:04 PM INDUSTRIAL PHOTOGRAPHER Legal Sex Female 9:39 AM INDUSTRIAL PHOTOGRAPHER Gender Identity Female 04/23/2018 4:04 PM INDUSTRIAL PHOTOGRAPHER Sexual Orientation Straight 04/23/2018 4: 04 PM INDUSTRIAL PHOTOGRAPHER documented as of this encounter Medications at [...] Description 10/05/2024 1:00 PM CDT Virtual Visit [facility] [address] [place] [address] Farzana Sabillon MD [address] [facility] 200 [place] [address] 10/06/2024 1:00 PM CDT Office Visit [facility] [address] [address] Jean Guerin MD [address] [place] [address] 12/25/2024 10:30 AM CDT Office Visit [facility] [place] [address] [facility] 200 [place] [phone] Sobia Domingo MD [address] [place] [address] [place], [place] [address] documented as of this encounter Visit Diagnoses Not on filedocumented in this encounter Additional Health Concerns Assessment Noted Time PHQ-9 Depression Total Score: 2 09/21/19 20 7:02 AM CDT documented as of this encounter Care Teams Auto Adjudication Specialist Relationship Specialty Start Date End Date Mehreen Toussaint NP [facility] 225 [place] [address] PCP - General 03/07/23 Farzana Sabillon MD [address] [facility] 200 [place] [address] Assigned Endocrinology Provider 08/27/23 Jean Guerin MD [address] [place] [address] Critical Care 06/12/24 Sobia Domingo MD [address] [place] [address] [place] [address] Assigned Rheumatology Provider 06/28/24 Carleen Garcia EP [facility] [address] [place] [address] Cardiac Rehabilitation Therapist 06/30/24 Kimberlee Logan RPH Pharmacist Pharmacist 07/01/24 Kimberlee Logan RPH Assigned MTM Pharmacist 07/26/24 documented as of this encounter
--- OUTSIDE RECORDS SUMMARY | 2024-08-12 21:03 | XMS_ITS | Encounter Summary ---
Author Organization [place] Address [address] [place] [address] Care Team Providers Care Claims Vice President Name Role Phone Nilton Roach PA-C Primary Care Provider Nilton Roach PA-C Unavailable [phone] Nilton Roach PA-C Unavailable [phone] Betty Gupta MD Unavailable +[phone] Gray Lora MD Unavailable +[phone] Reginald Wen MD Unavailable +[phone] Nik Bryan MD Unavailable Tracie Godinez MD Unavailable + [phone] Reginald Wen MD Unavailable +[phone] Keegan Mcdonald MD Unavailable +[phone] Keegan Mcdonald MD Unavailable +[phone] Jean Guerin MD Unavailable + [phone] Mehreen Toussaint NP Primary Care Provider Nilton Roach PA-C Unavailable [phone] Farzana Sabillon MD Unavailable +[phone] Saroj Romeo MD Unavailable Jean Guerin MD Unavailable + [phone] Sobia Domingo MD Unavailable Carleen Garcia KP Unavailable [phone] DesmondKimberlee balbuena [facility] Unavailable Unavailable DesmondKimberlee balbuena [facility] Unavailable Unavailable Reason for Visit * Reason Comments Medication Refill Encounter Details Date Type Department Care Team (Late st Contact Info) Description 03/17/2018 Refill [facility] [address] [place] [address] [place] [address] [place] [address] Medication Refill Social History Tobacco Use Types Packs/Day Years Used Date Smoking Tobacco: Some Days Cigarettes Smokeless Tobacco: Never Comments:Occasional Alcohol Use Standard Drinks/Week Comments No 0 (1 standard drink = 0.6 oz pur e alcohol) Comments No Sex and Gender Information Value Date Recorded Sex Assigned at Female 04/23/2018 4:04 PM ANALYZER SALES Legal Sex Female 9:39 AM ANALYZER SALES Gender Identity Female 04/23/2018 4:04 PM ANALYZER SALES Sexual Orientation Straight 04/23/2018 4: 04 PM ANALYZER SALES documented as of this encounter Miscellaneous Notes * Telephone Encounter - Adrianne Garner RN - 03/18/2018 10:06 AM ANALYZER SALES Faxed refill request from: [facility] Medication requested: Plaquenil Prescription Written: 11/18/17, discontinued on 12/08/17 for allergic response Last qty: 60, one refill Pt's last office visit: 02/21/18 Next scheduled office visit: 05/21/18 Last ophthalmology visit: Per last note If she will be continued on Plaquenil long distance operator will do eye exam in 3 - [...] 07/10/2017 3.7 3.4 - 5.0 g/dL Final YZER SALES documented in this encounter Plan of Treatment Upcoming Encounters Date Type Department Care Team (Late st Contact Info) Description 10/05/2024 1:00 PM CDT Virtual Visit [facility] [address] [facility] [address] [place] [address] Farzana Sabillon MD [address] [place] [address] [place], [place] [address] 10/06/2024 1:00 PM CDT Office Visit [facility] [address] [address] Jean Guerin MD [address] [place] [id number] 12/25/2024 10:30 AM CDT Office Visit [facility] Specialty [address] [place] [phone] Sobia Domingo MD [address] [facility] 215 [place] [address] documented as of this encounter Visit Diagnoses Diagnosis Systemic lupus erythematosus, unspecified SLE type, unspecified organ involvement status (H) documented in this encounter Additional Health Concerns Infection Onset Date Last Indicated Resolved Time Rule Out COVID-19 09/12/2020 09/12/2020 09/13/2020 5:31 PM CDT Assessment Noted Time PHQ-9 Depression Total Score: 3 12/14/19 18 2:01 PM CDT documented as of this encounter Care Teams Claims Vice President Relationship Specialty Start Date End Date Nilton Roach PA-C [address] [address] PCP - General Physician Lab Coordinator 01/02/17 03/06/23 Nilton Roach PA-C [address] [address] PCP - Assigned PCP 12/13/16 07/08/18 Mehreen Toussaint NP [address] [address] PCP - General 03/07/23 Nilton Roach PA-C [address] [address] Assigned PCP 12/13/16 12/21/22 [place] [address] [place] [address] Assigned Rheumatology Provider 02/26/20 03/27/24 Gray Lora MD [address] [place] [address] Assigned Pulmonology Provider 02/26/20 05/27/21 Reginald Wen MD [address] [place] [address] Assigned Musculoskeletal Provider 05/29/20 07/19/20 Nik Bryan MD [address] [place] [address] Assigned Cancer Care Provider 02/26/20 11/17/21 Tracie Godinez MD [address] [place] [address] Assigned Musculoskeletal Provider 05/22/20 05/28/20 Reginald Wen MD [address] [place] [address] Assigned Musculoskeletal Provider 02/26/20 05/21/20 Keegan Mcdonald MD [address] [address] Assigned Pulmonology Provider 07/09/21 09/02/21 Keegan Mcdonald MD [address] [place] [address] Assigned Pulmonology Provider 12/30/21 05/03/23 Jean Guerin MD [address] [place] [address] Assigned PCP 12/22/22 05/29/23 Nilton Roach PA-C [address] [place] [address] Assigned PCP 05/30/23 02/25/24 Farzana Sabillon MD [address] [place] [place] [address] Assigned Endocrinology Provider 08/27/23 [place] [address] [place] [address] Assigned Rheumatology Provider 03/28/24 06/27/24 Jean Guerin MD [address] [place] [address] Critical Care 06/12/24 Sobia Domingo MD [address] [place] [address] [place] [address] Assigned Rheumatology Provider 06/28/24 Carleen Garcia EP [facility] [address] [place] [address] Cardiac Rehabilitation Therapist 06/30/24 Kimberlee Logan RPH Pharmacist Pharmacist 07/01/24 Kimberlee Logan RPH Assigned MTM Pharmacist 07/26/24 documented as of this encounter
--- OUTSIDE RECORDS SUMMARY | 2024-08-12 21:03 | XMS_ITS | Referral Summary ---
Author Organization [facility] Address [address] [place] [address] Care Team Providers Care Mortgage Loan Specialist Name Role Phone Nilton Roach Primary Care Provider [phone] Allergies Active Allergy Reactions Criticality Noted Date [...] Comments Blood Pressure 131/80 06/30/2019 2:47 PM NAIL TECHNICIAN Pulse 102 06/30/2019 2:49 PM NAIL TECHNICIAN Temperature 36.7 C (98 F) 06/30/2019 2:49 PM NAIL TECHNICIAN Respiratory Rate 16 06/30/2019 2:49 PM NAIL TECHNICIAN Oxygen Saturation 91% 06/30/2019 2:49 PM NAIL TECHNICIAN Inhaled Oxygen Concentration - - Weight 44.1 kg (97 lb 4.8 oz) 06/30/2019 6:00 AM NAIL TECHNICIAN Height 152.4 cm (5') 06/27/2019 5:45 AM NAIL TECHNICIAN Body Mass Index 19 06/27/2019 5:45 AM NAIL TECHNICIAN Plan of Treatment Not on file Insurance [facility] [employer] [facility] Advance Directives For more information, please contact: [phone] * Full Code (Latest Code Status on File) Date Activated Date Inactivated Comments 06/27/2019 6:20 AM 06/30/2019 10:48 PM Question Answer Comments How was code status determined? Patient Care Teams Mortgage Loan Specialist Relationship Specialty Start Date End Date Nilton Roach PA [address] [place] [address] [address] [place] [address] PCP - General 02/20/17
--- OUTSIDE RECORDS SUMMARY | 2024-08-12 21:03 | XMS_ITS | Encounter Summary ---
Author Organization [facility] Address [address] [place] [address] Care Team Providers Care Protection Mgr Name Role Phone Mehreen Toussaint NP Primary Care Provider Farzana Sabillon MD Unavailable [phone] Jean Guerin MD Unavailable + [phone] Sobia Domingo MD Unavailable Carleen Garcia Unavailable [phone] Kimberlee Logan [facility] Unavailable Unavailable Kimberlee Logan [facility] Unavailable Unavailable Encounter Details Date [...] Sex Assigned at Female 04/23/2018 4:04 PM KNUCKLE STRAP SEWER Legal Sex Female 9:39 AM KNUCKLE STRAP SEWER Gender Identity Female 04/23/2018 4:04 PM KNUCKLE STRAP SEWER Sexual Orientation Straight 04/23/2018 4: 04 PM KNUCKLE STRAP SEWER documented as of this encounter Plan of Treatment Upcoming Encounters Date Type Department Care Team (Late st Contact Info) Description 10/05/2024 1:00 PM CDT Virtual Visit [facility] [address] [place] [phone] Farzana Sabillon MD [address] [facility] [address] [place] [address] 10/06/2024 1:00 PM CDT Office Visit [facility] [address] [phone] Jean Guerin MD [address] [place] [address] 12/25/2024 10:30 AM CDT Office Visit [address] [phone] Sobia Domingo MD [address] [place], [place] [address]E [facility] [address] [place], [place] [address] documented as of this encounter Visit Diagnoses Not on filedocumented in this encounter Additional Health Concerns Assessment Noted Time PHQ-9 Depression Total Score: 2 09/21/19 20 7:02 AM CDT documented as of this encounter Care Teams Protection Mgr Relationship Specialty Start Date End Date Mehreen Toussaint NP [address] [address] PCP - General 03/07/23 Farzana Sabillon MD [address] [place] [address] [place] [address] Assigned Endocrinology Provider 08/27/23 Jean Guerin MD [address] [place] [address] Critical Care 06/12/24 Sobia Domingo MD [address] [facility] [address] Assigned Rheumatology Provider 06/28/24 aCrleen Garcia EP [facility] [address] [facility] [place] [address] Cardiac Rehabilitation Therapist 06/30/24 Kimberlee Logan RP Pharmacist Pharmacist 07/01/24 Kimberlee Logan RPH Assigned MTM Pharmacist 07/26/24 documented as of this encounter
--- OUTSIDE RECORDS SUMMARY | 2024-08-12 21:03 | XMS_ITS | Encounter Summary ---
Author Organization [facility] Address [address] [place] [address] Care Team Providers Care Factory Superintendent Name Role Phone Mehreen Toussaint NP Primary Care Provider Farzana Sabillon MD Unavailable [phone] Jean Guerin MD Unavailable + [phone] Sobia Domingo MD Unavailable Carleen Garcia Unavailable [phone] Kimberlee Logan [facility] Unavailable Unavailable Reason for Visit * Rehab Therapy Cardiac Therapy (Routine: Next available opening) - Authorized Specialty Diagnoses / Procedures Referred By Contac t Referred To Contact CARDIAC REHAB Diagnoses Stage 4 very severe COPD by GOLD classification (H) [address] [address] Phone: tel: Referral ID Status Reason Start Date Expiration Date V isits Requested Visits Authorized [id number] Authorized 06/26/2024 05/05/2025 72 72 Encounter Details Date Type Department Care Team (Latest Contact Info) Description 07/07/2024 12:45 PM SAFE DEPOSIT CLERK - 07/07/2024 11:59 PM SAFE DEPOSIT CLERK [facility] Cardiac and Pulmonary Rehabilitation [address] [phone] Jean Guerin MD [address] [id number] 1, Rh Pulmonary Rehab Discharge Disposition: Home [...] Sex Assigned at Female 04/23/2018 4:04 PM SAFE DEPOSIT CLERK Legal Sex Female 9:39 AM SAFE DEPOSIT CLERK Gender Identity Female 04/23/2018 4:04 PM SAFE DEPOSIT CLERK Sexual Orientation Straight 04/23/2018 4: 04 PM SAFE DEPOSIT CLERK documented as of this encounter Medications at [...] Health [address] [place] [address] Farzana Sabillon MD [address] [place] [address] 200 [place] [address] 10/06/2024 1:00 PM CDT Office Visit [facility] [address] [phone] Jean Guerin MD [address] [place] [place] [address] 12/25/2024 10:30 AM CDT Office Visit [facility] [address] [facility] 200 [place] [phone] Sobia Domingo MD [address] [facility] [address] [place], [place] [address] documented as of this encounter Visit Diagnoses Not on filedocumented in this encounter Additional Health Concerns Assessment Noted Time PHQ-9 Depression Total Score: 2 09/21/19 20 7:02 AM CDT documented as of this encounter Care Teams Factory Superintendent Relationship Specialty Start Date End Date Mehreen Toussaint NP [facility] [address] [place] [address] PCP - General 03/07/23 Farzana Sabillon MD [address] [facility] [address] [place] [address] Assigned Endocrinology Provider 08/27/23 Jean Guerin MD [address] [place] [address] Critical Care 06/12/24 Sobia Domingo MD [address] [place], [place] [address] Assigned Rheumatology Provider 06/28/24 Carleen Garcia EP [facility] [address] [address] Cardiac Rehabilitation Therapist 06/30/24 Kimberlee Logan [facility] Pharmacist Pharmacist 07/01/24 documented as of this encounter
--- OUTSIDE RECORDS SUMMARY | 2024-08-12 21:03 | XMS_ITS | Encounter Summary ---
Author Organization [facility] Address [address] [place] [address] Care Team Providers Care Food Photographer Name Role Phone Mehreen Toussaint NP Primary Care Provider Farzana Sabillon MD Unavailable [phone] Jean Guerin MD Unavailable + [phone] Sobia Domingo MD Unavailable Carleen Garcia Unavailable [phone] Kimberlee Logan [facility] Unavailable Unavailable [...] Sex Assigned at Female 04/23/2018 4:04 PM FLEXO OPERATOR Legal Sex Female 9:39 AM FLEXO OPERATOR Gender Identity Female 04/23/2018 4:04 PM FLEXO OPERATOR Sexual Orientation Straight 04/23/2018 4: 04 PM FLEXO OPERATOR documented as of this encounter Plan of Treatment Upcoming Encounters Date Type Department Care Team (Late st Contact Info) Description 10/05/2024 1:00 PM CDT Virtual Visit [facility] [address] [place] [phone] Farzana Sabillon MD [address] [facility] 200 [place] [address] 10/06/2024 1:00 PM CDT Office Visit [facility] [address] [phone] Jean Guerin MD [address] [place] [id number] 12/25/2024 10:30 AM CDT Office Visit [address] [phone] Sobia Domingo MD [address] [place], [place] [address]E [facility] [address] [place], [place] [address] documented as of this encounter Visit Diagnoses Not on filedocumented in this encounter Additional Health Concerns Assessment Noted Time PHQ-9 Depression Total Score: 2 09/21/19 20 7:02 AM CDT documented as of this encounter Care Teams Food Photographer Relationship Specialty Start Date End Date Mehreen Toussaint NP [address] [address] PCP - General 03/07/23 Farzana Sabillon MD [address] [place] [address] [place] [address] Assigned Endocrinology Provider 08/27/23 Jean Guerin MD [address] [place] [address] Critical Care 06/12/24 Sobia Domingo MD [address] [facility] [address] [address] Assigned Rheumatology Provider 06/28/24 Carleen Garcia EP [facility] [address] [facility] [place] [address] Cardiac Rehabilitation Therapist 06/30/24 Kimberlee Logan RP Pharmacist Pharmacist 07/01/24 Kimberlee Lgoan RPH Assigned MTM Pharmacist 07/26/24 documented as of this encounter
--- OUTSIDE RECORDS SUMMARY | 2024-08-12 21:03 | XMS_ITS | Encounter Summary ---
Author Organization [facility] Address [address] [place] [address] Care Team Providers Care Loan Reviewer Name Role Phone Mehreen Toussaint NP Primary Care Provider [phone] Farzana Sabillon MD Unavailable [phone] Jean Guerin MD Unavailable + [phone] Sobia Domingo MD Unavailable Carleen Garcia Unavailable [phone] Kimberlee Logan [facility] Unavailable Unavailable Encounter [...] Sex Assigned at Female 04/23/2018 4:04 PM STUDENT ACCOUNTS COORDINATOR Legal Sex Female 9:39 AM STUDENT ACCOUNTS COORDINATOR Gender Identity Female 04/23/2018 4:04 PM STUDENT ACCOUNTS COORDINATOR Sexual Orientation Straight 04/23/2018 4: 04 PM STUDENT ACCOUNTS COORDINATOR documented as of this encounter Plan of Treatment Upcoming Encounters Date Type Department Care Team ( st Contact Info) Description 10/05/2024 1:00 PM CDT Virtual Visit [facility] [address] [place] [phone] Farzana Sabillon MD [address] [place] [place] [address] 10/06/2024 1:00 PM CDT Office Visit [facility] [address] [phone] Jean Guerin MD [address] [place] [address] 12/25/2024 10:30 AM CDT Office Visit [address] [phone] Sobia Domingo MD [address] [address] documented as of this encounter Visit Diagnoses Not on filedocumented in this encounter Additional Health Concerns Assessment Noted Time PHQ-9 Depression Total Score: 2 09/21/19 20 7:02 AM CDT documented as of this encounter Care Teams Loan Reviewer Relationship Specialty Start Date End Date Mehreen Toussaint NP [address] [address] PCP - General 03/07/23 Farzana Sabillon MD [address] [place] [address] Assigned Endocrinology Provider 08/27/23 Jean Guerin MD [address] [place] [address] Critical Care 06/12/24 Sobia Domingo MD [address] [facility] [address] Assigned Rheumatology Provider 06/28/24 Carleen Garcia EP [facility] [address] [facility] [place], [place] [address] Cardiac Rehabilitation Therapist 06/30/24 Kimberlee Logan [facility] Pharmacist Pharmacist 07/01/24 documented as of this encounter
--- OUTSIDE RECORDS SUMMARY | 2024-08-12 21:03 | XMS_ITS | Clinical Summary ---
Author Organization [facility] Address [address] [place] [address] Care Team Providers Care Corrections Sergeant Name Role Phone Mehreen Toussaint NP Primary Care Provider Farzana Sabillon MD Unavailable [phone] Jean Guerin MD Unavailable + [phone] Sobia Domingo MD Unavailable Carleen Garcia Unavailable [phone] DesmondKimberlee balbuena [facility] Unavailable Unavailable DesmondKimberlee [facility] Unavailable Unavailable Allergies Active Allergy Reactions Criticality [...] - 07/30/2024 11:59 PM CDT Hospital Encounter [facility] Cardiac [facility] Pul[facility] [address] [place] [phone] Jean Guerin MD 1, Pulmonary Rehab Discharge Disposition: Home or Self Care 07/30/2024 Travel 07/28/2024 10:18 AM CDT - 07/28/2024 11:59 PM CDT Hospital Encounter [facility] Cardiac [facility] [address] [place] [phone] Jean Guerin MD 1, Rh Pulmonary Rehab Discharge Disposition: Home or Self Care 07/28/2024 Travel 07/27/2024 Travel 07/14/2024 10:17 AM CDT - 07/14/2024 11:59 PM CDT Hospital Encounter [facility] Cardiac [facility] [address] [place] [phone] Jean Guerin MD 1, Rh Pulmonary Rehab Discharge Disposition: Home or Self Care 07/14/2024 Travel 07/10/2024 Travel 07/07/2024 12:45 PM TROUBLE SHOOTER - 07/07/2024 11:59 PM TROUBLE SHOOTER Hospital Encounter [facility] Cardiac [facility] Pulmonary Rehabilitation [address] [place] [phone] Jean Guerin MD 1, Rh Pulmonary Rehab Discharge Disposition: Home or Self Care 07/07/2024 Travel 07/06/2024 MyC Medical Advice [facility] [address] [place] [phone] Carol Lloyd 07/06/2024 Travel 07/02/2024 Telephone [facility] [address] [phone] Sobia Domingo MD Prior Auth - Medication (Benlysta) 07/01/2024 2:30 PM TROUBLE SHOOTER Virtual Visit [facility] Rheumatology [address] [place] [address] Sobia Domingo MD DesmondKimberlee balbuena M, [facility] Systemic lupus erythematosus, unspecified SLE type, unspecified organ involvement status (H) (Primary Dx) 06/30/2024 1:59 PM TROUBLE SHOOTER - 06/30/2024 11:59 PM TROUBLE SHOOTER Hospital Encounter [facility] Cardiac [facility] Pul[facility] [address] [place] [phone] Jean Guerin MD 2, Rh Pulmonary Rehab Discharge Disposition: Home or Self Care 06/30/2024 Travel 06/29/2024 Travel 06/26/2024 11:30 AM TROUBLE SHOOTER Lab [facility] [address] [place] [phone] Systemic lupus erythematosus, organ or system involvement unspecified (H); Antiphospholipid syndrome; Long-term use of high-risk medication; Hypocomplementemia (H) 06/26/2024 10:30 AM TROUBLE SHOOTER Office Visit [facility] Specialty [address] [place] [phone] Sobia Domingo MD Systemic lupus erythematosus, organ or system involvement unspecified (H) (Primary Dx); Antiphospholipid syndrome; Long-term use of high-risk medication; Hypocomplementemia (H) 06/26/2024 Travel 06/24/2024 Telephone [facility] Rheumatology [facility] [address] [phone] Saroj Romeo MD Appointment 06/17/2024 8:30 AM TROUBLE SHOOTER Office Visit [facility] [address] [phone] Jean Guerin MD Stage 4 [...] Sex Assigned at Female 04/23/2018 4:04 PM TROUBLE SHOOTER Legal Sex Female 9:39 AM TROUBLE SHOOTER Gender Identity Female 04/23/2018 4:04 PM TROUBLE SHOOTER Sexual Orientation Straight 04/23/2018 4: 04 PM TROUBLE SHOOTER Last Filed Vital Signs Vital Sign Reading Time Taken Comments Blood Pressure 146/88 06/26/2024 10:05 AM TROUBLE SHOOTER Pulse 114 06/26/2024 10:04 AM TROUBLE SHOOTER Temperature 37.1 C (98.7 F) 10/22/2023 2:00 PM CDT Respiratory Rate 24 06/26/2024 10:04 AM TROUBLE SHOOTER Oxygen Saturation 96% 06/26/2024 10:04 AM TROUBLE SHOOTER Inhaled Oxygen Concentration - - Weight 52.6 kg (116 lb) 06/26/2024 10:04 AM TROUBLE SHOOTER Height 152.4 cm (5') 10/22/2023 2:00 PM CDT Body Mass Index 22.65 10/22/2023 2:00 PM CDT Plan of Treatment Upcoming Encounters Date Type Department Care Team (Late st Contact Info) Description 10/05/2024 1:00 PM CDT Virtual Visit [facility] [address] [place] [phone] Farzana Sabillon MD [address] [place] [address] 10/06/2024 1:00 PM CDT Office Visit [facility] [place] [address] [place] [address] Jean Guerin MD [address] [place] [phone] 12/25/2024 10:30 AM CDT Office Visit [facility] Specialty [facility] [place] [address] [facility] [address] [place] [phone] Sobia Domingo MD [address] [facility] [address] [place] [address] Health Maintenance Due Date Last [...] PROTEIN RANDOM URINE Routine 06/26/2024 11:32 AM TROUBLE SHOOTER Systemic lupus erythematosus, organ or system involvement unspecified (H) Antiphospholipid syndrome Long-term use of high-risk medication Hypocomplementemia (H) CBC WITH PLATELETS & DIFFERENTIAL Routine 06/26/2024 11:28 AM TROUBLE SHOOTER Systemic lupus erythematosus, organ or system involvement unspecified (H) Antiphospholipid syndrome Long-term use of high-risk medication Hypocomplementemia (H) CBC WITH PLATELETS AND DIFFERENTIAL Routine 06/26/2024 11:28 AM TROUBLE SHOOTER Systemic lupus erythematosus, organ or system involvement unspecified (H) Antiphospholipid syndrome Long-term use of high-risk medication Hypocomplementemia (H) DNA DOUBLE STRANDED ANTIBODIES Routine 06/26/2024 11:28 AM TROUBLE SHOOTER Systemic lupus erythematosus, organ or system involvement unspecified (H) Antiphospholipid syndrome Long-term use of high-risk medication Hypocomplementemia (H) COMPLEMENT C4 Routine 06/26/2024 11:28 AM TROUBLE SHOOTER Systemic lupus erythematosus, organ or system involvement unspecified (H) Antiphospholipid syndrome Long-term use of high-risk medication Hypocomplementemia (H) COMPLEMENT C3 Routine 06/26/2024 11:28 AM TROUBLE SHOOTER Systemic lupus erythematosus, organ or system involvement unspecified (H) Antiphospholipid syndrome Long-term use of high-risk medication Hypocomplementemia (H) CRP INFLAMMATION Routine 06/26/2024 11:2 8 AM TROUBLE SHOOTER Systemic lupus erythematosus, organ or system involvement unspecified (H) Antiphospholipid syndrome Long-term use of high-risk medication Hypocomplementemia (H) ALT Routine 06/26/2024 11:28 AM TROUBLE SHOOTER Systemic lupus erythematosus, organ or system involvement unspecified (H) Antiphospholipid syndrome Long-term use of high-risk medication Hypocomplementemia (H) AST Routine 06/26/2024 11:28 AM TROUBLE SHOOTER Systemic lupus erythematosus, organ or system involvement unspecified (H) Antiphospholipid syndrome Long-term use of high-risk medication Hypocomplementemia (H) CREATININE Routine 06/26/2024 11:28 AM TROUBLE SHOOTER Systemic lupus erythematosus, organ or system involvement unspecified (H) Antiphospholipid syndrome Long-term use of high-risk medication Hypocomplementemia (H) CT CHEST LUNG CANCER SCREEN LOW DOSE WITHOUT Routine 12/24/2023 11:44 AM CDT Personal history of tobacco use PFT GENERAL LAB TESTING Routine 06/10/2023 2:03 PM TROUBLE SHOOTER Stage 4 very severe COPD by GOLD [...] CANCER SCREEN FIT Routine 06/26/2019 7:00 AM TROUBLE SHOOTER Colon cancer screening HPV HIGH RISK TYPES DNA CERVICAL Routine 05/29/2019 3:28 PM TROUBLE SHOOTER Screening for malignant neoplasm of cervix PAP IMAGED THIN LAYER SCREEN Routine 05/29/2019 3:17 PM TROUBLE SHOOTER Screening for malignant neoplasm of cervix HEPATITIS C SCREEN REFLEX TO HCV RNA QUANT AND GENOTYPE Routine 04/22/2019 4:32 PM TROUBLE SHOOTER Need for hepatitis C screening test from Last 3 Months or Most Recently Relevant to Health Maintenance Results * Protein random urine (06/26/2024 11:32 AM TROUBLE SHOOTER) Total Protein Urine mg/dL 6.7 mg/dL 06/26/2024 9:01 PM TROUBLE SHOOTER [facility] Comment:The reference ranges have not been established in urine protein. The results should be integrated into the clinical context for interpretation. Total Protein Urine mg/mg Creat 0.17 0.00 - 0.20 mg/mg Cr 06/26/2024 9:01 PM TROUBLE SHOOTER [facility] Creatinine Urine mg/dL 40.1 mg/dL 06/26/2024 9:01 PM TROUBLE SHOOTER [facility] Comment:The reference ranges have not been established in urine creatinine. The results should be integrated into the clinical context for interpretation. Urine URINE SPECIMEN OBTAINED BY CLEAN CATCH PROCEDURE / Unknown Non-blood Collection / Unknown 06/26/2024 11:32 AM TROUBLE SHOOTER 06/26/2024 11:32 AM TROUBLE SHOOTER us Sobia Domingo MD LAB - URINE ORDERABLES Final Res ult [facility] [employer] [facility] [address] [facility], [address] [place] [address] * CBC with platelets and differential (06/26/2024 11:28 AM TROUBLE SHOOTER) WBC Count 8.2 4.0 - 11.0 10e3/uL 06/26/2024 11:31 AM TROUBLE SHOOTER [facility] RBC Count 4.36 3.80 - 5.20 10e6/uL 06/26/2024 11:31 AM TROUBLE SHOOTER [facility] Hemoglobin 12.6 11.7 - 15.7 g/dL 06/26/2024 11:31 AM TROUBLE SHOOTER [facility] Hematocrit 39.7 35.0 - 47.0 % 06/26/2024 11:31 AM TROUBLE SHOOTER [facility] MCV 91 78 - 100 fL 06/26/2024 11:31 AM TROUBLE SHOOTER [facility] MCH 28.9 26.5 - 33.0 pg 06/26/2024 11:31 AM TROUBLE SHOOTER [facility] MCHC 31.7 31.5 - 36.5 g/dL 06/26/2024 11:31 AM TROUBLE SHOOTER [facility] RDW 12.9 10.0 - 15.0 % 06/26/2024 11:31 AM TROUBLE SHOOTER [facility] Platelet Count 239 150 - 450 10e3/uL 06/26/2024 11:31 AM TROUBLE SHOOTER [facility] % Neutrophils 75 % 06/26/2024 11:31 AM TROUBLE SHOOTER [facility] % Lymphocytes 13 % 06/26/2024 11:31 AM TROUBLE SHOOTER [facility] % Monocytes 11 % 06/26/2024 11:31 AM TROUBLE SHOOTER [facility] % Eosinophils 1 % 06/26/2024 11:31 AM TROUBLE SHOOTER [facility] % Basophils 1 % 06/26/2024 11:31 AM TROUBLE SHOOTER [facility] % Immature Granulocytes 0 % 06/26/2024 11:31 AM TROUBLE SHOOTER [facility] Absolute Neutrophils 6.1 1.6 - 8.3 10e3/uL 06/26/2024 11:31 AM TROUBLE SHOOTER [facility] Absolute Lymphocytes 1.1 0.8 - 5.3 10e3/uL 06/26/2024 11:31 AM TROUBLE SHOOTER [facility] Absolute Monocytes 0.9 0.0 - 1.3 10e3/uL 06/26/2024 11:31 AM TROUBLE SHOOTER [facility] Absolute Eosinophils 0.1 0.0 - 0.7 10e3/uL 06/26/2024 11:31 AM TROUBLE SHOOTER [facility] Absolute Basophils 0.0 0.0 - 0.2 10e3/uL 06/26/2024 11:31 AM TROUBLE SHOOTER [facility] Absolute Immature Granulocytes 0.0 <=0.4 10e3/uL 06/26/2024 11:31 AM TROUBLE SHOOTER [facility] Blood BLOOD SPECIMEN / Unknown Venipuncture / Unknown 06/26/2024 11:28 AM TROUBLE SHOOTER 06/26/2024 11:28 AM TROUBLE SHOOTER us Sobia Domingo MD LAB - BLOOD ORDERABLES Final Res ult LABORATORY [facility] [address] [facility] (no room number, 1st floor of clinic) [place] [address] * DNA double stranded antibodies (06/26/2024 11:28 AM TROUBLE SHOOTER) DNA (ds) Antibody 1.0 <10.0 IU/mL 06/29/2024 12:47 PM TROUBLE SHOOTER [facility] Comment:Negative Blood BLOOD SPECIMEN / Unknown Venipuncture / Unknown 06/26/2024 11:28 AM TROUBLE SHOOTER 06/26/2024 11:28 AM TROUBLE SHOOTER Narrative [facility]/END[facility] - 06/29/2024 12:47 PM TROUBLE SHOOTER Negative: Less than 10 Equivocal: 10-15 Positive: Greater than 15 us Sobia Domingo MD LAB - BLOOD ORDERABLES Final Res ult [facility]PROT/ENDO [facility]/Prot/Endo [address] [facility] [address] Building, [address] * CRP inflammation (06/26/2024 11:28 AM TROUBLE SHOOTER) CRP Inflammation <3.00 <5.00 mg/L 06/26/19 9:30 PM TROUBLE SHOOTER [facility] Blood BLOOD SPECIMEN / Unknown Venipuncture / Unknown 06/26/2024 11:28 AM TROUBLE SHOOTER 06/26/2024 11:28 AM TROUBLE SHOOTER Sobia Domingo MD LAB - BLOOD ORDERABLES Final Res ult [facility] [employer] [facility] [address] [facility], [address] * Creatinine (06/26/2024 11:28 AM TROUBLE SHOOTER) Creatinine 0.56 0.51 - 0.95 mg/dL 06/26/2024 9:30 PM TROUBLE SHOOTER [facility] GFR Estimate >90 >60 mL/min/1.7 3m2 06/26/2024 9:30 PM TROUBLE SHOOTER [facility] Comment:eGFR calculated us2020 CKD-EPI equation. Blood BLOOD SPECIMEN / Unknown Venipuncture / Unknown 06/26/2024 11:28 AM TROUBLE SHOOTER 06/26/2024 11:28 AM TROUBLE SHOOTER us Sobia Domingo MD LAB - BLOOD ORDERABLES Final Res ult [facility] [employer] [facility] [address] [facility], [address] * C4 (06/26/2024 11:28 AM TROUBLE SHOOTER) C4 Complement 24 13 - 39 mg/dL 06/29/2024 9:41 AM TROUBLE SHOOTER [facility] Blood BLOOD SPECIMEN / Unknown Venipuncture / Unknown 06/26/2024 11:28 AM TROUBLE SHOOTER 06/26/2024 11:28 AM TROUBLE SHOOTER Sobia Domingo MD LAB - BLOOD ORDERABLES Final Res ult [facility]/PROT/ENDO [facility] Core/Prot/Endo [address] [facility], [address] * C3 (06/26/2024 11:28 AM TROUBLE SHOOTER) C3 Complement 150 81 - 157 mg/dL 06/29/2024 9:41 AM TROUBLE SHOOTER [facility]END[facility] Blood BLOOD SPECIMEN / Unknown Venipuncture / Unknown 06/26/2024 11:28 AM TROUBLE SHOOTER 06/26/2024 11:28 AM TROUBLE SHOOTER us Sobia Domingo MD LAB - BLOOD ORDERABLES Final Res ult [facility]/PROT/ENDO [facility] Special[facility] Core/Prot/Endo [address] [facility] Building, [address] * AST (06/26/2024 11:28 AM TROUBLE SHOOTER) AST 20 0 - 45 U/L 06/26/2024 9:3 0 PM TROUBLE SHOOTER [facility] Blood BLOOD SPECIMEN / Unknown Venipuncture / Unknown 06/26/2024 11:28 AM TROUBLE SHOOTER 06/26/2024 11:28 AM TROUBLE SHOOTER us Sobia Domingo MD LAB - BLOOD ORDERABLES Final Res ult [facility] [employer] [facility] [address] [facility], [address] [place] [address] * ALT (06/26/2024 11:28 AM TROUBLE SHOOTER) ALT 22 0 - 50 U/L 06/26/2024 9:3 0 PM TROUBLE SHOOTER [facility] Blood BLOOD SPECIMEN / Unknown Venipuncture / Unknown 06/26/2024 11:28 AM TROUBLE SHOOTER 06/26/2024 11:28 AM TROUBLE SHOOTER us Sobia Domnigo MD LAB - BLOOD ORDERABLES Final Res ult [facility] [employer] [facility] [address] [facility], [address] * CT Chest Lung Cancer Scrn [...] site: http://www.acr.org/Quality-Safety/Resources/[email or web address] LAURA GRIFFIN MD SYSTEM ID: [id number] Narrative 12/24/2023 3:[address] CHEST [...] coronary artery calcifications. us Jean Guerin MD [facility] [place] [place] CT ORDERABLES Ed ited Result - Final * General PFT Lab (Please always keep checked) (06/10/2023 2:03 PM TROUBLE SHOOTER) FIO2-Pre 28.00 % [facility] PFT 06/10/2023 2:03 PM TROUBLE SHOOTER Narrative [facility]REEZE PFT - 06/13/2023 6:45 PM TROUBLE SHOOTER IMPRESSION: Hypoxemia with ambulation on room air. [...] 180 <200 mg/dL 08/05/2020 1:07 PM CDT [facility] Triglycerides 85 <150 mg/dL 08/05/2020 1:07 PM CDT [facility] HDL Cholesterol 92 >49 mg/dL 1:10 PM T [facility] LDL Cholesterol Calculated 71 <100 mg/dL 08/05/2020 1:10 PM T [facility] Comment:Desirable: <100 mg/d l Non HDL Cholesterol 88 <130 mg/dL 08/05/2020 1:10 PM T [facility] Blood 08/05/2020 8:55 AM CDT 08/05/2020 8:56 AM CDT us Nilton Medellin PA-C LAB - BLOOD ORDERABLES Final Result [facility] [address] [place] [address], [facility] [phone] * (ABNORMAL) Basic metabolic panel (08/05/2020 8:55 AM CDT) Sodium 140 133 - 144 mmol/L 08/05/2020 1:00 PM [facility] Potassium 4.9 3.4 - 5.3 mmol/L 08/05/2020 1:00 PM [facility] Chloride 109 94 - 109 mmol/L 08/05/2020 1:00 PM [facility] Carbon Dioxide 29 20 - 32 mmol/L 08/05/2020 1:07 PM [facility] Anion Gap 2(L) 3 - 14 mmol/L 08/05/2020 1:07 PM [facility] Glucose 107(H) 70 - 99 mg/dL 08/05/2020 1:07 PM [facility] Urea Nitrogen 10 7 - 30 mg/dL 08/05/2020 1:07 PM [facility] Creatinine 0.61 0.52 - 1.04 mg/dL 08/05/2020 1:07 PM [facility] GFR Estimate >90 >60 mL/min/{1. 73_m2} 08/05/2020 1:07 PM CDT [facility] Comment: Non GFR Calc Starting 04/22/2018, serum creatinine based estimated GFR (eGFR) will be calculated using the Chronic Kidney Disease Epidemiology Collaboration (CKD-EPI) equation. GFR Estimate If Black >90 >60 mL/min/{1. 73_m2} 08/05/2020 1:07 PM CDT [facility] Comment: GFR Calc Starting 04/22/2018, serum creatinine based estimated GFR (eGFR) will be calculated using the Chronic Kidney Disease Epidemiology Collaboration (CKD-EPI) equation. Calcium 9.5 8.5 - 10.1 mg/dL 08/05/2020 1:07 PM CDT [facility] 08/05/2020 8:55 AM CDT 08/05/2020 8:56 AM CDT us Nilton Medellin PA-C LAB - BLOOD ORDERABLES Final Result Performing Organization Address City/State/[facility] Co de Phone Number [address] [address], [facility] [phone] * COLONOSCOPY (12/31/2019 9:00 AM CDT) COLONOSCOPY [address] [address] [phone] Endoscopy Department Patient Name: Dusty Bello Procedure [...] was done by the physician, nurse and orthotics technician using the patient's name, date and medical [...] for the entire viewing portion of the exam.[facility] MD Yady Number of Addenda: 0 Note Initiated On: 12/31/2019 9:00 AM RADIOLOGY RESULTS 12/31/2019 9:00 AM CDT Nilton Medellin PA-C PROCEDURES Final R esult RADIOLOGY RESULTS * (ABNORMAL) Fecal colorectal cancer screen (FIT) (06/26/2019 7:00 AM TROUBLE SHOOTER) Occult Blood Scn FIT Positive(A ) NEG^Negati ve 06/29/2019 11:50 AM TROUBLE SHOOTER [facility] Stool specimen (specimen) 06/26/2019 7:00 AM TROUBLE SHOOTER 06/29/2019 10:28 AM TROUBLE SHOOTER Nilton Medellin PA-C LAB - STOOLS ORDERABLES Final Result Performing Organization Address City/[facility]/ZIP Co de Phone Number [facility] [address] [place] [address] * HPV High Risk Types DNA Cervical (05/29/2019 3:28 PM TROUBLE SHOOTER) HPV Source [facility] 05/29/2019 3:17 PM TROUBLE SHOOTER [facility] HPV 16 DNA Negative NEG^Nega tive 06/08/2019 9:24 AM TROUBLE SHOOTER [facility] HPV 18 DNA Negative NEG^Nega tive 06/08/2019 9:24 AM TROUBLE SHOOTER [facility] Other HR HPV Negative NEG^Nega tive 06/08/2019 9:24 AM TROUBLE SHOOTER [facility] Final Diagnosis This patient's sample is negative for HPV DNA. 06/08/2019 9:24 AM TROUBLE SHOOTER [facility] Comment: This test was developed and its performance characteristics determined by the [facility], Molecular Diagnostics Laboratory. It has not [...] Specimen Description Cervical Cells 05/29/2019 3:17 PM TROUBLE SHOOTER [facility] Comment:[id number] Cervical Cells 05/29/2019 3: 28 PM TROUBLE SHOOTER 2019 8:27 AM TROUBLE SHOOTER us Nilton Medellin PA-C LAB - BLOOD ORDERABLES Final Result [facility] [address] [place] [address] [address] * Pap imaged thin layer screen with HPV - recommended age 30 - 65 years (select HPV order below) (05/29/2019 3:17 PM TROUBLE SHOOTER) PAP SEBASTIAN Hernández Report Patient Name: DUSTY BELLO MR#: [id number] Specimen #: [id number] Collected: 05/29/2019 Received: 06/02/2019 Reported: 06/04/2019 14:00 [...] adenocarcinomas or other cancers. COLLECTION SITE: Client: [facility] Location: [facility] (P) The technical component of this testing was completed at the [facility], with the professional component performed at the [facility], [address] [place] [phone] ([phone]) COPATH Cytologic material (specimen) 05/29/2019 3:17 PM TROUBLE SHOOTER 06/02/2019 3:05 PM TROUBLE SHOOTER Nilton Medellin PA-C LAB - OPTIME CLINICAL S [facility] Final Result Performing Organization Address City/[facility]/ZIP Co de Phone Number COPATH * Hepatitis C Screen Reflex to HCV RNA Quant and Genotype (04/22/2019 4:32 PM TROUBLE SHOOTER) Hepatitis C Antibody Nonreactive NR^Nonre active 04/23/2019 9:09 AM TROUBLE SHOOTER [facility] Comment: Assay performance characteristics have not been established for newborns, infants, and children Blood specimen (specimen) 04/22/2019 4:32 PM TROUBLE SHOOTER 04/22/2019 4:33 PM TROUBLE SHOOTER Nilton Medellin PA-C LAB - BLOOD ORDERABLES Final Result [address] [address] from Last 3 Months or Most Recently Relevant to Health Maintenance Insurance [facility] [employer] MEDICARE [facility] [employer] MEDICARE * Guarantor: Dusty Bello Account Type Relation to Patient Date of Phone Billing Address Medication Therapy Self [address] [place] [id number] [facility] MEDICARE Advance Directives For more information, please contact: [phone] * Full Code (Latest Code Status on File) Date Activated Date Inactivated Comments 07/12/2017 8:57 AM 07/18/2018 6:43 AM * Full Code Date Activated Date Inactivated Comments 07/10/2017 7:49 PM 07/12/2017 8:57 AM Care Teams Corrections Sergeant Relationship Specialty Start Date End Date Mehreen Toussaint NP [facility] [address] [place] [address] PCP - General 03/07/23 Farzana Sabillon MD [address] [facility] [address] [place] [address] Assigned Endocrinology Provider 08/27/23 Jean Guerin MD [address] [facility] [address] Critical Care 06/12/24 Sobia Domingo MD [address] [address] [place] [address] Assigned Rheumatology Provider 06/28/24 Carleen Garcia EP [facility] [address] [place] [address] Cardiac Rehabilitation Therapist 06/30/24 Kimberlee Logan RP Pharmacist Pharmacist 07/01/24 Kimberlee Logan RPH Assigned MTM Pharmacist 07/26/24
--- OUTSIDE RECORDS SUMMARY | 2024-08-12 21:03 | XMS_ITS | Encounter Summary ---
Author Organization [place] Address [address] [place] [address] Care Team Providers Care Veterans Rehabilitation Counselor Name Role Phone Nilton Roach PA-C Primary Care Provider Nilton Roach PA-C Unavailable [phone] Nilton Roach PA-C Unavailable +[phone] Betty Gupta MD Unavailable +[phone] Gray Lora MD Unavailable +[phone] Reginald Wen MD Unavailable +[phone] Nik Bryan MD Unavailable Tracie Godinez MD Unavailable + [phone] Reginald Wen MD Unavailable +[phone] Keegan Mcdonald MD Unavailable +[phone] Keegan Mcdonald MD Unavailable +[phone] Jean Guerin MD Unavailable + [phone] Mehreen Toussaint NP Primary Care Provider Nilton Roach PA-C Unavailable +[phone] Farzana Sabillon MD Unavailable +[phone] Saroj Romeo MD Unavailable Jean Guerin MD Unavailable [phone] Sobia Domingo MD Unavailable Carleen Garcia KP Unavailable DesmondKimberlee [facility] Unavailable Unavailable Kimberlee Logan [facility] Unavailable Unavailable Reason for Visit * Reason Comments Medication Refill Duoneb Encounter Details Date Type Department Care Team (Late Contact Info) Description 04/24/2018 Refill [facility] [address] [place] [phone] Nilton Roach PA-C [address] [facility] [address] [place] [address] Medication Refill (Duoneb) Social History Tobacco Use Types Packs/Day Years Used Date Smoking Tobacco: Former Cigarettes Smokeless Tobacco: Never Comments:Occasional Alcohol Use Standard Drinks/Week Comments No 0 (1 standard drink = 0.6 oz pur e alcohol) Comments No Sex and Gender Information Value Date Recorded Sex Assigned at Female 04/23/2018 4:04 PM MENAGERIE SUPERINTENDENT Legal Sex Female 9:39 AM MENAGERIE SUPERINTENDENT Gender Identity Female 04/23/2018 4:04 PM MENAGERIE SUPERINTENDENT Sexual Orientation Straight 04/23/2018 4: 04 PM MENAGERIE SUPERINTENDENT documented as of this encounter Miscellaneous Notes * Telephone Encounter - Nilton Roach PA-C - 04/24/2018 5:21 PM MENAGERIE SUPERINTENDENT Refills sent. Nilton Roach PA-C GERIE SUPERINTENDENT * Telephone Encounter - Sandi Garcia RN - 04/24/2018 1:54 PM CST Duoneb Routing refill request to provider for review/approval because: Prescribed for Acute bronchitis and COPD exacerbation Sandi Garcia RN, BSN GERIE SUPERINTENDENT documented in this encounter Plan of Treatment Upcoming Encounters Date Type Department Care Team ([facility] Contact Info) Description 10/05/2024 1:00 PM CDT Virtual Visit [facility] [address] [place] [phone] Farzana Sabillon MD [address] [place] [address] 10/06/2024 1:00 PM CDT Office Visit [facility] [address] [phone] Jean Guerin MD [address] [place], [place] [address] 12/25/2024 10:30 AM CDT Office Visit [facility] [address] [facility] [address] [place] [phone] Sobia Domingo MD [address] [facility] 215 [place] [address] documented as of this encounter Visit Diagnoses Diagnosis Simple chronic bronchitis (H)- Primary Simple chronic bronchitis documented in this encounter Additional Health Concerns Infection Onset Date Last Indicated Resolved Time Rule Out COVID-19 09/12/2020 09/12/2020 09/13/2020 5:31 PM CDT Assessment Noted Time PHQ-9 Depression Total Score: 3 12/14/19 18 2:01 PM CDT documented as of this encounter Care Teams Veterans Rehabilitation Counselor Relationship Specialty Start Date End Date Nilton Roach PA-C [address] [facility] 100 [place] [address] PCP - General Physician Medical Billing Clerk 01/02/17 03/06/23 Nilton Roach PA-C [address] [place] [address] PCP - Assigned PCP 12/13/16 07/08/18 Mehreen Toussaint NP [address] [address] PCP - General 03/07/23 Nilton Roach PA-C [address] [address] Assigned PCP 12/13/16 12/21/22 [place] [address] [address] [place] [address] Assigned Rheumatology Provider 02/26/20 03/27/24 Gray Lora MD [address] [place] [address] 614935 Assigned Pulmonology Provider 02/26/20 05/27/21 Reginald Wen MD [address] [place], [place] 7[address] Assigned Musculoskeletal Provider 05/29/20 07/19/20 Nik Bryan MD [address] [place] [address] 603455 Assigned Cancer Care Provider 02/26/20 11/17/21 Tracie Godinez MD [address] [address] Assigned Musculoskeletal Provider 05/22/20 05/28/20 Reginald Wen MD [address] [place], [place] [address] Assigned Musculoskeletal Provider 02/26/20 05/21/20 Keegan Mcdonald MD [address] [place] [address] Assigned Pulmonology Provider 07/09/21 09/02/21 Keegan Mcdonald MD [address] [place] [address] Assigned Pulmonology Provider 12/30/21 05/03/23 Jean Guerin MD [address] [place] [address] Assigned PCP 12/22/22 05/29/23 Nilton Roach PA-C [address] [place] [address] Assigned PCP 05/30/23 02/25/24 Farzana Sabillon MD [address] [place], [place] [address] Assigned Endocrinology Provider 08/27/23 [place] [address] [facility] [id number] Assigned Rheumatology Provider 03/28/24 06/27/24 Jean Guerin MD [address] [place] [address] Critical Care 06/12/24 Sobia Domingo MD [address] [place] [address] Assigned Rheumatology Provider 06/28/24 Carleen Garcia EP [facility] [address] [place] [address] Cardiac Rehabilitation Therapist 06/30/24 Kimberlee Logan RP Pharmacist Pharmacist 07/01/24 Kimberlee Logan RP Assigned MTM Pharmacist 07/26/24 documented as of this encounter
--- OUTSIDE RECORDS SUMMARY | 2024-08-12 21:03 | XMS_ITS | Encounter Summary ---
Author Organization [place] Address [address] [place] [address] Care Team Providers Care Boilermaker Mechanic Name Role Phone Mehreen Toussaint NP Primary Care Provider Farzana Sabillon MD Unavailable [phone] Jean Guerin MD Unavailable + [phone] Sobia Domingo MD Unavailable Carleen Garcia Unavailable [phone] Kimberlee Logan [facility] Unavailable Unavailable Kimberlee Logan [facility] Unavailable Unavailable Encounter Details Date Type [...] Sex Assigned at Female 04/23/2018 4:04 PM COAT FELLER Legal Sex Female 9:39 AM COAT FELLER Gender Identity Female 04/23/2018 4:04 PM COAT FELLER Sexual Orientation Straight 04/23/2018 4: 04 PM COAT FELLER documented as of this encounter Plan of Treatment Upcoming Encounters Date Type Department Care Team (Late st Contact Info) Description 10/05/2024 1:00 PM CDT Virtual Visit [facility] [address] [place] [phone] Farzana Sabillon MD [address] [facility] 200 [place] [address] 10/06/2024 1:00 PM CDT Office Visit [facility] [address] [phone] Jean Guerin MD [address] [place] [address] 12/25/2024 10:30 AM CDT Office Visit [address] [phone] Sobia Domingo MD [address] [place], [place] [address]E [facility] 215 [place], [place] [address] documented as of this encounter Visit Diagnoses Not on filedocumented in this encounter Additional Health Concerns Assessment Noted Time PHQ-9 Depression Total Score: 2 09/21/19 20 7:02 AM CDT documented as of this encounter Care Teams Boilermaker Mechanic Relationship Specialty Start Date End Date Mehreen Toussaint NP [address] [address] PCP - General 03/07/23 Farzana Sabillon MD [address] [place] [address] Assigned Endocrinology Provider 08/27/23 Jean Guerin MD [address] [place] [address] Critical Care 06/12/24 Sobia Domingo MD [address] [facility] [address] [address] Assigned Rheumatology Provider 06/28/24 Carleen Garcia EP [facility] [address] [facility] [place] [address] Cardiac Rehabilitation Therapist 06/30/24 Kimberlee Logan RP Pharmacist Pharmacist 07/01/24 Kimberlee Logan RPH Assigned MTM Pharmacist 07/26/24 documented as of this encounter
--- OUTSIDE RECORDS SUMMARY | 2024-08-12 21:03 | XMS_ITS | Encounter Summary ---
Author Organization [place] Address [address] [place] [address] Care Team Providers Care Proposition Player Name Role Phone Mehreen Toussaint NP Primary Care Provider Farzana Sabillon MD Unavailable [phone] Jean Guerin MD Unavailable + [phone] Sobia Domingo MD Unavailable Carleen Garcia Unavailable [phone] Kimberlee Logan [facility] Unavailable Unavailable Reason for Visit * Rehab Therapy Cardiac Therapy (Routine: Next available opening) - Authorized Specialty Diagnoses / Procedures Referred By Contac t Referred To Contact CARDIAC REHAB Diagnoses Stage 4 very severe COPD by GOLD classification (H) [address] [address] Phone: tel: Referral ID Status Reason Start Date Expiration Date V isits Requested Visits Authorized [id number] Authorized 06/26/2024 05/05/2025 72 72 Encounter Details Date Type Department Care Team (Latest Contact Info) Description 07/14/2024 10:17 AM CDT - 07/14/2024 11:59 PM CDT Hospital Encounter [facility] Cardiac and Pulmonary Rehabilitation [address] [place] [address] Jean Guerin MD [address] [place] [id number] 1, Rh Pulmonary Rehab Discharge Disposition: Home [...] Sex Assigned at Female 04/23/2018 4:04 PM RETAIL STORE ASSISTANT Legal Sex Female 9:39 AM RETAIL STORE ASSISTANT Gender Identity Female 04/23/2018 4:04 PM RETAIL STORE ASSISTANT Sexual Orientation Straight 04/23/2018 4: 04 PM RETAIL STORE ASSISTANT documented as of this encounter Medications at [...] Description 10/05/2024 1:00 PM CDT Virtual Visit [facility] [address] [place] [address] Farzana Sabillon MD [address] [facility] 200 [place] [address] 10/06/2024 1:00 PM CDT Office Visit [facility] [address] [address] Jean Guerin MD [address] [place] [address] 12/25/2024 10:30 AM CDT Office Visit [facility] [address] [facility] 200 [place] [phone] Sobia Domingo MD [address] [facility] 215 [place], [place] [address] documented as of this encounter Visit Diagnoses Not on filedocumented in this encounter Additional Health Concerns Assessment Noted Time PHQ-9 Depression Total Score: 2 09/21/19 20 7:02 AM CDT documented as of this encounter Care Teams Proposition Player Relationship Specialty Start Date End Date Mehreen Toussaint NP [facility] 225 [place] [address] PCP - General 03/07/23 Farzana Sabillon MD [address] [facility] 200 [place] [address] Assigned Endocrinology Provider 08/27/23 Jean Guerin MD [address] [place] [address] Critical Care 06/12/24 Sobia Domingo MD [address] [place] [address] Assigned Rheumatology Provider 06/28/24 Carleen Garcia EP [facility] [address] [place] [place] [address] Cardiac Rehabilitation Therapist 06/30/24 Kimberlee Logan [facility] Pharmacist Pharmacist 07/01/24 documented as of this encounter
--- OUTSIDE RECORDS SUMMARY | 2024-08-12 21:03 | XMS_ITS | Encounter Summary ---
Author Organization [place] Address [address] [place] [address] Care Team Providers Care Cooking Casing And Drying Supervisor Name Role Phone Mehreen Toussaint NP Primary Care Provider Farzana Sabillon MD Unavailable [phone] Jean Guerin MD Unavailable + [phone] Sobia Domingo MD Unavailable Carleen Garcia Unavailable [phone] Kimberlee Logan [facility] Unavailable Unavailable Encounter Details Date Type Department [...] Sex Assigned at Female 04/23/2018 4:04 PM SWITCH CLEANER Legal Sex Female 9:39 AM SWITCH CLEANER Gender Identity Female 04/23/2018 4:04 PM SWITCH CLEANER Sexual Orientation Straight 04/23/2018 4: 04 PM SWITCH CLEANER documented as of this encounter Plan of Treatment Upcoming Encounters Date Type Department Care Team ( st Contact Info) Description 10/05/2024 1:00 PM CDT Virtual Visit [facility] [address] [place] [phone] Farzana Sabillon MD [address] [place] [address] 10/06/2024 1:00 PM CDT Office Visit [facility] [address] [phone] Jean Guerin MD [address] [place] [address] 12/25/2024 10:30 AM CDT Office Visit [address] [phone] Sobia Domingo MD [address] [address] documented as of this encounter Visit Diagnoses Not on filedocumented in this encounter Additional Health Concerns Assessment Noted Time PHQ-9 Depression Total Score: 2 09/21/19 20 7:02 AM CDT documented as of this encounter Care Teams Cooking Casing And Drying Supervisor Relationship Specialty Start Date End Date Mehreen Toussaint NP [address] [address] PCP - General 03/07/23 Farzana Sabillon MD [address] [place] [address] Assigned Endocrinology Provider 08/27/23 Jean Guerin MD [address] [place] [address] Critical Care 06/12/24 Sobia Domingo MD [address] [facility] [address] [address] Assigned Rheumatology Provider 06/28/24 Craleen Garcia EP [facility] [address] [facility] [place], [place] [address] Cardiac Rehabilitation Therapist 06/30/24 Kimberlee Logan [facility] Pharmacist Pharmacist 07/01/24 documented as of this encounter
--- OUTSIDE RECORDS SUMMARY | 2024-08-12 21:03 | XMS_ITS | Encounter Summary ---
Author Organization [place] Address [address] [place] [address] Care Team Providers Care Transition Program Manager Name Role Phone Mehreen Toussaint NP Primary Care Provider Farzana Sabillon MD Unavailable [phone] Jean Guerin MD Unavailable + [phone] Sobia Domingo MD Unavailable Carleen Garcia Unavailable [phone] Kimberlee Logan [facility] Unavailable Unavailable Encounter Details Date [...] Sex Assigned at Female 04/23/2018 4:04 PM ACID TANK CLEANER Legal Sex Female 9:39 AM ACID TANK CLEANER Gender Identity Female 04/23/2018 4:04 PM ACID TANK CLEANER Sexual Orientation Straight 04/23/2018 4: 04 PM ACID TANK CLEANER documented as of this encounter Plan of Treatment Upcoming Encounters Date Type Department Care Team ( st Contact Info) Description 10/05/2024 1:00 PM CDT Virtual Visit [facility] [address] [place] [phone] Farzana Sabillon MD [address] [place] [address] 10/06/2024 1:00 PM CDT Office Visit [facility] [address] [phone] Jean Guerin MD [address] [place] [address] 12/25/2024 10:30 AM CDT Office Visit [address] [phone] Sobia Domingo MD [address] [address] documented as of this encounter Visit Diagnoses Not on filedocumented in this encounter Additional Health Concerns Assessment Noted Time PHQ-9 Depression Total Score: 2 09/21/19 20 7:02 AM CDT documented as of this encounter Care Teams Transition Program Manager Relationship Specialty Start Date End Date Mehreen Toussaint NP [address] [address] PCP - General 03/07/23 Farzana Sabillon MD [address] [place] [address] Assigned Endocrinology Provider 08/27/23 Jean Guerin MD [address] [place] [address] Critical Care 06/12/24 Sobia Domingo MD [address] [facility] [address] [address] Assigned Rheumatology Provider 06/28/24 Carleen Garcia EP [facility] 6401 [facility] [place], [place] [address] Cardiac Rehabilitation Therapist 06/30/24 Kimberlee Logan [facility] Pharmacist Pharmacist 07/01/24 documented as of this encounter
--- OUTSIDE RECORDS SUMMARY | 2024-08-12 21:04 | XMS_ITS | Encounter Summary ---
Author Organization [place] Address [address] [place] [address] Care Team Providers Care Top Lift And Automatic Window Repairer Name Role Phone Nilton Roach PA-C Primary Care Provider Nilton Roach PA-C Unavailable [phone] Betty Gupta MD Unavailable [phone] Gray Lora MD Unavailable [phone] Nik Bryan MD Unavailable Keegan Mcdonald MD Unavailable Keegan Mcdonald MD Unavailable [phone] Jean Guerin MD Unavailable + [phone] Mehreen Toussaint NP Primary Care Provider Nilton Roach PA-C Unavailable +[phone] Farzana Sabillon MD Unavailable [phone] Saroj Romeo MD Unavailable Jean Guerin MD Unavailable + [phone] Sobia Domingo MD Unavailable Carleen Garcia Unavailable +[phone] Kimberlee Logan RP Unavailable Unavailable Kimberlee Logan RP Unavailable Unavailable Reason for Visit * Reason Onset Date Comments Immunization 01/17/2021 Encounter Details Date Type Department Care Team (Late Contact Info) Description 01/17/2021 MyC Medical Advice [facility] [address] [facility] [address] [place] [phone] Nilton Roach PA-C [address] [facility] [address] [place] [address] Immunization Social History Tobacco Use Types Packs/Day [...] Sex Assigned at Female 04/23/2018 4:04 PM LECTURER IN COMPUTER SCIENCE Legal Sex Female 9:39 AM LECTURER IN COMPUTER SCIENCE Gender Identity Female 04/23/2018 4:04 PM LECTURER IN COMPUTER SCIENCE Sexual Orientation Straight 04/23/2018 4: 04 PM LECTURER IN COMPUTER SCIENCE COVID-19 Exposure Response Date Recorded In the [...] [facility] [address] [place] [address] Farzana Sabillon MD [address] [facility] 200 [place], [place] [address] 10/06/2024 1:00 PM CDT Office Visit [facility] [address] [address] Jean Guerin MD [address] [place] [address] 12/25/2024 10:30 AM CDT Office Visit [address] [place] [phone] Sobia Domingo MD [address] [facility] 215 [place] [address] documented as of this encounter Visit Diagnoses Not on filedocumented in this encounter Additional Health Concerns Assessment Noted Time PHQ-9 Depression Total Score: 2 09/21/19 7:02 AM CDT documented as of this encounter Care Teams Top Lift And Automatic Window Repairer Relationship Specialty Start Date End Date Nilton Roach PA-C [address] [place] [address] PCP - General Physician Exploration Engineer 01/02/17 03/06/23 Mehreen Toussaint NP [address] [address] PCP - General 03/07/23 Nilton Roach PA-C [address] [place] [address] Assigned PCP 12/13/16 12/21/22 [place] [address] [place] [address] Assigned Rheumatology Provider 02/26/20 03/27/24 Gray Lora MD [address] [place] [address] Assigned Pulmonology Provider 02/26/20 05/27/21 Nik Bryan MD [address] [place] [address] Assigned Cancer Care Provider 02/26/20 11/17/21 Keegan Mcdonald MD [address] [place] [address] Assigned Pulmonology Provider 07/09/21 09/02/21 Keegan Mcdonald MD [address] [place] [address] Assigned Pulmonology Provider 12/30/21 05/03/23 Jean Guerin MD [address] [place] [address] Assigned PCP 12/22/22 05/29/23 Nilton Roach PA-C [address] [facility] [address] [place] [address] Assigned PCP 05/30/23 02/25/24 Farzana Sabillon MD [address] [place] [address] 200 [place] [address] Assigned Endocrinology Provider 08/27/23 [place] [address] [place] [address] Assigned Rheumatology Provider 03/28/24 06/27/24 Jean Guerin MD [address] [place] [address] Critical Care 06/12/24 Sobia Domingo MD [address] [address] Assigned Rheumatology Provider 06/28/24 Carleen Garcia EP [facility] 6401 [facility] [place] [address] Cardiac Rehabilitation Therapist 06/30/24 Kimberlee Logan RP Pharmacist Pharmacist 07/01/24 Kimberlee Logan RPH Assigned MTM Pharmacist 07/26/24 documented as of this encounter
--- OUTSIDE RECORDS SUMMARY | 2024-08-12 21:04 | XMS_ITS | Encounter Summary ---
Author Organization [place] Address [address] [place] [address] Care Team Providers Care Guest Experience Captain Name Role Phone Betty Gupta MD Unavailable [phone] Mehreen Toussaint NP Primary Care Provider Nilton Roach PA-C Unavailable [phone] Farzana Sabillon MD Unavailable [phone] Saroj Romeo MD Unavailable Jean Guerin MD Unavailable +- [phone] Sobia Domingo MD Unavailable Carleen Garcia Unavailable [phone] Kimberlee Logan [facility] Unavailable Unavailable Kimberlee Logan [facility] Unavailable Unavailable Encounter Details Date Type Department Care Team (Late st Contact Info) Description 10/01/2023 MyC Medical Advice [facility] [address] [place] [address] Aranza Morales, MADAN Social History [...] Sex Assigned at Female 04/23/2018 4:04 PM SYSTEMS INTEGRATION ENGINEER Legal Sex Female 9:39 AM SYSTEMS INTEGRATION ENGINEER Gender Identity Female 04/23/2018 4:04 PM SYSTEMS INTEGRATION ENGINEER Sexual Orientation Straight 04/23/2018 4: 04 PM SYSTEMS INTEGRATION ENGINEER documented as of this encounter Plan of Treatment Upcoming Encounters Date Type Department Care Team (Late st Contact Info) Description 10/05/2024 1:00 PM CDT Virtual Visit [facility] [address] [place] [phone] Farzana Sabillon MD [address] [facility] 200 [place], [place] [address] 10/06/2024 1:00 PM CDT Office Visit [facility] [address] [phone] Jean Guerin MD [address]01 [place] [address] 12/25/2024 10:30 AM CDT Office Visit [facility] [address] [phone] Sobia Domingo MD 606 [address] 215 [place], [place] [address] documented as of this encounter Visit Diagnoses Not on filedocumented in this encounter Additional Health Concerns Assessment Noted Time PHQ-9 Depression Total Score: 2 09/21/19 20 7:02 AM CDT documented as of this encounter Care Teams Guest Experience Captain Relationship Specialty Start Date End Date Mehreen Toussaint NP [address] [address] PCP - General 03/07/23 [place] [address] [place] [address] Assigned Rheumatology Provider 02/26/20 03/27/24 Nilton Roach PA-C [address] [place] [address] Assigned PCP 05/30/23 02/25/24 Farzana Sabillon MD [address] [place], [place] [address] Assigned Endocrinology Provider 08/27/23 [place] [address] [place] [address] Assigned Rheumatology Provider 03/28/24 06/27/24 Jean Guerin MD [address] [place] [address] Critical Care 06/12/24 Sobia Domingo MD [address] [place] [address] Assigned Rheumatology Provider 06/28/24 Carleen Garcia EP [facility] [address] [address] Cardiac Rehabilitation Therapist 06/30/24 Kimberlee Logan RP Pharmacist Pharmacist 07/01/24 Kimberlee Logan RPH Assigned MTM Pharmacist 07/26/24 documented as of this encounter
--- OUTSIDE RECORDS SUMMARY | 2024-08-12 21:04 | XMS_ITS | Encounter Summary ---
Author Organization [facility] Address [address] [place] [address] Care Team Providers Care Engrosser Name Role Phone Nilton Roach PA-C Primary Care Provider Nilton Roach PA-C Unavailable [phone] Betty Gupta MD Unavailable +[phone] Gray Lora MD Unavailable +[phone] Nik Bryan MD Unavailable Keegan Mcdonald MD Unavailable Keegan Mcdonald MD Unavailable +[phone] Jean Guerin MD Unavailable + [phone] Mehreen Toussaint NP Primary Care Provider Nilton Roach PA-C Unavailable +[phone] Farzana Sabillon MD Unavailable +[phone] Saroj Romeo MD Unavailable Jean Guerin MD Unavailable + [phone] Sobia Domingo MD Unavailable Carleen Garcia Unavailable +[phone] [facility] Unavailable Unavailable Kimberlee Logan RP Unavailable Unavailable Encounter Details Date Type Department Care Team (Late st Contact Info) Description 05/03/2021 MyC Medical Advice [facility] [place] [id number] [employer] 200 [place] [address] [place] [address] [place] [address] Social History Tobacco Use Types Packs/Day Years Used Date Smoking Tobacco: Former Cigarettes 1 40 0 06/06/1979 - 06/06/2019 Smokeless Tobacco: Never Comments:Occasional Alcohol Use Standard Drinks/Week Comments No 0 (1 standard drink = 0.6 oz pur e alcohol) PHQ-2 Answer Date Recorded PHQ-2 Score 0 04/05/2021 Comments No Sex and Gender Information Value Date Recorded Sex Assigned at Female 04/23/2018 4:04 PM SCREW MACHINE HAND Legal Sex Female 9:39 AM SCREW MACHINE HAND Gender Identity Female 04/23/2018 4:04 PM SCREW MACHINE HAND Sexual Orientation Straight 04/23/2018 4: 04 PM SCREW MACHINE HAND COVID-19 Exposure Response Date Recorded In the last month, have you been in contact with someone who was confirmed or suspected to have Coronavirus / COVID-19? No / Unsure 04/05/2021 3:25 PM SCREW MACHINE HAND documented as of this encounter Plan of Treatment Upcoming Encounters Date Type Department Care Team (Late Contact Info) Description 10/05/2024 1:00 PM CDT Virtual Visit [facility] [address] [facility] [address] [place] [address] Farzana Sabillon MD [address] [address] [place], [place] [address] 10/06/2024 1:00 PM CDT Office Visit [facility] [address] [address] Jean Guerin MD 6401 [place], [place] [address] 12/25/2024 10:30 AM CDT Office Visit [facility] [place] [address] [place] [address] [address] [place] [address] Sobia Domingo MD [address] [address] documented as of this encounter Visit Diagnoses Not on filedocumented in this encounter Additional Health Concerns Assessment Noted Time PHQ-9 Depression Total Score: 2 09/21/19 20 7:02 AM CDT documented as of this encounter Care Teams Engrosser Relationship Specialty Start Date End Date Nilton Roach PA-C [address] [place] [address] PCP - General Physician Vp Software Engineering 01/02/17 03/06/23 Mehreen Toussaint NP [address] [address] PCP - General 03/07/23 Nilton Roach PA-C [address] [place] [address] Assigned PCP 12/13/16 12/21/22 [place] [address] [place] [address] Assigned Rheumatology Provider 02/26/20 03/27/24 Gray Lora MD [address] [place] [address] Assigned Pulmonology Provider 02/26/20 05/27/21 Nik Bryan MD [address] [place] [address] Assigned Cancer Care Provider 02/26/20 11/17/21 Keegan Mcdonald MD [address] [place] [address] Assigned Pulmonology Provider 07/09/21 09/02/21 Keegan Mcdonald MD [address] [place] [address] Assigned Pulmonology Provider 12/30/21 05/03/23 Jean Guerin MD [address] [place] [address] Assigned PCP 12/22/22 05/29/23 Nilton Roach PA-C [address] [place] [address] Assigned PCP 05/30/23 02/25/24 Farzana Sabillon MD [address] [place] [address] Assigned Endocrinology Provider 08/27/23 [place] [address] [place] [address] Assigned Rheumatology Provider 03/28/24 06/27/24 Jean Guerin MD [address] [place] [address] Critical Care 06/12/24 Sobia Domingo MD [address] [place] [address] Assigned Rheumatology Provider 06/28/24 Carleen Garcia EP [place] [address] [place] [address] Cardiac Rehabilitation Therapist 06/30/24 Kimberlee Logan RP Pharmacist Pharmacist 07/01/24 Kimberlee Logan RPH Assigned MTM Pharmacist 07/26/24 documented as of this encounter
--- OUTSIDE RECORDS SUMMARY | 2024-08-12 21:04 | XMS_ITS | Encounter Summary ---
Author Organization [facility] Address [address] [place] [address] Care Team Providers Care Engine Head Repairer Name Role Phone Nilton Roach PA-C Primary Care Provider Nilton Roach PA-C Unavailable [phone] Nilton Roach PA-C Unavailable +[phone] Betty Gupta MD Unavailable +[phone] Gray Lora MD Unavailable +[phone] Reginald Wen MD Unavailable +[phone] Nik Bryan MD Unavailable Tracie Godinez MD Unavailable + [phone] Reginald Wen MD Unavailable +[phone] Keegan Mcdonald MD Unavailable +[phone] Keegan Mcdonald MD Unavailable +[phone] Jean Guerin MD Unavailable + [phone] Mehreen Toussaint NP Primary Care Provider Nilton Roach PA-C Unavailable [phone] Farzana Sabillon MD Unavailable +[phone] Saroj Romeo MD Unavailable Jean Guerin MD Unavailable + [phone] Sobia Domingo MD Unavailable Carleen Garcia KP Unavailable +[phone] Kimberlee Logan [facility] Unavailable Unavailable DesmondKimberlee balbuena [facility] Unavailable Unavailable Encounter Details Date Type Department Care Team (Late st Contact Info) Description 09/23/2017 MyC Medical Advice [facility] [address] [place] [address] [facility] Social History Tobacco Use Types Packs/Day Years Used Date Smoking Tobacco: Some Days Cigarettes Smokeless Tobacco: Never Comments:Occasional Alcohol Use Standard Drinks/Week Comments No 0 (1 standard drink = 0.6 oz pur e alcohol) Comments No Sex and Gender Information Value Date Recorded Sex Assigned at Female 04/23/2018 4:04 PM SUPERVISOR COMPOSING ROOM Legal Sex Female 9:39 AM SUPERVISOR COMPOSING ROOM Gender Identity Female 04/23/2018 4:04 PM SUPERVISOR COMPOSING ROOM Sexual Orientation Straight 04/23/2018 4: 04 PM SUPERVISOR COMPOSING ROOM documented as of this encounter Plan of Treatment Upcoming Encounters Date Type Department Care Team (Late st Contact Info) Description 10/05/2024 1:00 PM CDT Virtual Visit [facility] [address] [place] [address] Farzana Sabillon MD [address] [place], [place] [address] 10/06/2024 1:00 PM CDT Office Visit [facility] [address] [phone] Jean Guerin MD [address] [place] [address] 12/25/2024 10:30 AM CDT Office Visit [facility] [address] 200 [place] [address] Sobia Domingo MD [address] [place] [address] documented as of this encounter Visit Diagnoses Not on filedocumented in this encounter Additional Health Concerns Infection Onset Date Last Indicated Resolved Time Rule Out COVID-19 09/12/2020 09/12/2020 09/13/2020 5:31 PM CDT documented as of this encounter Care Teams Engine Head Repairer Relationship Specialty Start Date End Date Nilton Roach PA-C [address] [address] PCP - General Physician Ballet Company Member 01/02/17 03/06/23 Nilton Roach PA-C [address] [address] PCP - Assigned PCP 12/13/16 07/08/18 Mehreen Toussaint NP [address] [address] PCP - General 03/07/23 Nilton Roach PA-C [address] [address] Assigned PCP 12/13/16 12/21/22 [place] [address] [place] [address] Assigned Rheumatology Provider 02/26/20 03/27/24 Gray Lora MD 909 [place] [address] Assigned Pulmonology Provider 02/26/20 05/27/21 Reginald Wen MD 4000 [place], [place] [address] Assigned Musculoskeletal Provider 05/29/20 07/19/20 Nik Bryan MD 909 [place], [place] [address] Assigned Cancer Care Provider 02/26/20 11/17/21 Tracie Godinez MD [address] 2076[address] Assigned Musculoskeletal Provider 05/22/20 05/28/20 Reginald Wen MD [address] [place] [address] Assigned Musculoskeletal Provider 02/26/20 05/21/20 Keegan Mcdonald MD [address] [place], [place] [address] Assigned Pulmonology Provider 07/09/21 09/02/21 Keegan Mcdonald MD [address] [place], [place] [address] Assigned Pulmonology Provider 12/30/21 05/03/23 Jean Guerin MD [address] [place] [address] Assigned PCP 12/22/22 05/29/23 Nilton Roach PA-C [address], [place] [address] Assigned PCP 05/30/23 02/25/24 Farzana Sabillon MD [address] [place], [place] [address] Assigned Endocrinology Provider 08/27/23 [place] [address] [place] [address] Assigned Rheumatology Provider 03/28/24 06/27/24 Jean Guerin MD [address] [place] [address] Critical Care 06/12/24 Sobia Domingo MD [address] [place] [address] Assigned Rheumatology Provider 06/28/[address] [facility] [address] [place] [address] Cardiac Rehabilitation Therapist 06/30/24 Kimberlee Logan RP Pharmacist Pharmacist 07/01/24 Kimberlee Logan RP Assigned MTM Pharmacist 07/26/24 documented as of this encounter
--- OUTSIDE RECORDS SUMMARY | 2024-08-12 21:04 | XMS_ITS | Encounter Summary ---
Author Organization [facility] Address [address] [place] [address] Care Team Providers Care Stone Operator Name Role Phone Betty Gupta MD Unavailable [phone] Mehreen Toussaint NP Primary Care Provider Nilton Roach PA-C Unavailable +[phone] Farzana Sabillon MD Unavailable [phone] Saroj Romeo MD Unavailable Jean Guerin MD Unavailable +[phone] Sobia Domingo MD Unavailable Carleen Garcia Unavailable [phone] Kimberlee Logan [facility] Unavailable Unavailable Kimberlee Logan [facility] Unavailable Unavailable Encounter Details Date Type Department Care Team (Late st Contact Info) Description 08/13/2023 MyC Medical Advice [facility] [address] [place] [address] Aranza Morales, MADAN Social History [...] Assigned at Female 04/23/2018 4:04 PM SENIOR UX DEVELOPER Legal Sex Female 9:39 AM SENIOR UX DEVELOPER Gender Identity Female 04/23/2018 4:04 PM SENIOR UX DEVELOPER Sexual Orientation Straight 04/23/2018 4: 04 PM SENIOR UX DEVELOPER documented as of this encounter Plan of Treatment Upcoming Encounters Date Type Department Care Team (Late st Contact Info) Description 10/05/2024 1:00 PM CDT Virtual Visit [facility] [address] [place] [phone] Farzana Sabillon MD [address] [facility] 200 [place], [place] [address] 10/06/2024 1:00 PM CDT Office Visit [facility] [address] [phone] Jean Guerin MD 6401 [place] [address] 12/25/2024 10:30 AM CDT Office Visit [facility] [address] [phone] Sobia Domingo MD 606 [address] 215 [place], [place] [address] documented as of this encounter Visit Diagnoses Not on filedocumented in this encounter Additional Health Concerns Assessment Noted Time PHQ-9 Depression Total Score: 2 09/21/19 20 7:02 AM CDT documented as of this encounter Care Teams Stone Operator Relationship Specialty Start Date End Date Mehreen Toussaint NP [address] [address] PCP - General 03/07/23 [place] [address] [place] [address] Assigned Rheumatology Provider 02/26/20 03/27/24 Nilton Roach PA-C [address] [place] [address] Assigned PCP 05/30/23 02/25/24 Farzana Sabillon MD [address] [place], [place] [address] Assigned Endocrinology Provider 08/27/23 [place] [address] [place] [address] Assigned Rheumatology Provider 03/28/24 06/27/24 Jean Guerin MD [address] [place] [address] Critical Care 06/12/24 Sobia Domingo MD [address] [place] [address] Assigned Rheumatology Provider 06/28/24 Carleen Garcia EP [facility] [address] [place] [address] Cardiac Rehabilitation Therapist 06/30/24 Kimberlee Logan RP Pharmacist Pharmacist 07/01/24 Kimberlee Logan RPH Assigned MTM Pharmacist 07/26/24 documented as of this encounter
--- OUTSIDE RECORDS SUMMARY | 2024-08-12 21:04 | XMS_ITS | Encounter Summary ---
Author Organization [facility] Address [address] [place] [address] Care Team Providers Care Hand Edge Bander Name Role Phone Nilton Roach PA-C Primary Care Provider Nilton oRach PA-C Unavailable [phone] Betty Gupta MD Unavailable [phone] Gray Lora MD Unavailable +[phone] Nik Bryan MD Unavailable Keegan Mcdonald MD Unavailable +[phone] Keegan Mcdonald MD Unavailable +[phone] Jean Guerin MD Unavailable + [phone] Mehreen Toussaint NP Primary Care Provider [phone] Nilton Roach PA-C Unavailable [phone] Farzana Sabillon MD Unavailable +[phone] Saroj Romeo MD Unavailable Jean Guerin MD Unavailable + [phone] Sobia Domingo MD Unavailable Carleen Garcia Unavailable +[phone] Kimberlee Logan [facility] Unavailable Unavailable Kimberlee Logan RP Unavailable Unavailable Encounter Details Date Type Department Care Team (Late st Contact Info) Description 11/11/2020 MyC Medical Advice [address] [phone] Liliane Toro, [facility] Social History Tobacco Use Types Packs/Day [...] Assigned at Female 04/23/2018 4:04 PM MECHANICAL TECH Legal Sex Female 9:39 AM MECHANICAL TECH Gender Identity Female 04/23/2018 4:04 PM MECHANICAL TECH Sexual Orientation Straight 04/23/2018 4: 04 PM MECHANICAL TECH documented as of this encounter Plan of Treatment Upcoming Encounters Date Type Department Care Team (Late st Contact Info) Description 10/05/2024 1:00 PM CDT Virtual Visit [facility] [address] [facility] [address] [place] [phone] Farzana Sabillon MD [address] 200 [place], [place] [address] 10/06/2024 1:00 PM CDT Office Visit [facility] [address] [phone] Jean Guerin MD 6401 [place] [address] 12/25/2024 10:30 AM CDT Office [facility] [place] 65[address] [facility] 200 [place] [phone] Sobia Domingo MD [address] 215 [place], [place] [address] documented as of this encounter Visit Diagnoses Not on filedocumented in this encounter Additional Health Concerns Assessment Noted Time PHQ-9 Depression Total Score: 2 09/21/19 20 7:02 AM CDT documented as of this encounter Care Teams Hand Edge Bander Relationship Specialty Start Date End Date Nilton Roach PA-C [address] [place] [address] PCP - General Physician Hospitality Manager 01/02/17 03/06/23 Mehreen Toussaint NP [address] [address] PCP - General 03/07/23 Nilton Roach PA-C [address] [address] Assigned PCP 12/13/16 12/21/22 [place] [address] [place] [address] Assigned Rheumatology Provider 02/26/20 03/27/24 Gray Lora MD [address] [place] [address] Assigned Pulmonology Provider 02/26/20 05/27/21 Nik Bryan MD 909 [place], [place] [address] Assigned Cancer Care Provider 02/26/20 11/17/21 Keegan Mcdonald MD 6401 [place] [address] Assigned Pulmonology Provider 07/09/21 09/02/21 Keegan Mcdonald MD [address] [place] [address] Assigned Pulmonology Provider 12/30/21 05/03/23 Jean Guerin MD [address] [place] [address] Assigned PCP 12/22/22 05/29/23 Nilton Roach PA-C [address] [place], [place] [address] Assigned PCP 05/30/23 02/25/24 Farzana Sabillon MD [address] [place], [place] [address] Assigned Endocrinology Provider 08/27/23 [place] [address] [place] [address] Assigned Rheumatology Provider 03/28/24 06/27/24 Jean Guerin MD [address] [place] [address] Critical Care 06/12/24 Sobia Domingo MD [address] [place] [address] Assigned Rheumatology Provider 06/28/24 Carleen Garcia EP [facility] [address] [place] [address] Cardiac Rehabilitation Therapist 06/30/24 Kimberlee Logan RPH Pharmacist Pharmacist 07/01/24 Kimberlee Logan RPH Assigned MTM Pharmacist 07/26/24 documented as of this encounter
--- OUTSIDE RECORDS SUMMARY | 2024-08-12 21:04 | XMS_ITS | Encounter Summary ---
Author Organization [facility] Address [address] [place] [address] Care Team Providers Care Timber Repairer Name Role Phone Nilton Roach PA-C Primary Care Provider Nilton Roach PA-C Unavailable [phone] Nilton Roach PA-C Unavailable [phone] Betty Gupta MD Unavailable [phone] Gray Lora MD Unavailable +[phone] Reginald Wen MD Unavailable +[phone] Nik Bryan MD Unavailable Tracie Godinez MD Unavailable + [phone] Reginald Wen MD Unavailable +[phone] Keegan Mcdonald MD Unavailable +[phone] Keegan Mcdonald MD Unavailable [phone] Jean Guerin MD Unavailable + [phone] Mehreen Toussaint NP Primary Care Provider Nilton Roach PA-C Unavailable +[phone] Farzana Sabillon MD Unavailable +[phone] Saroj Romeo MD Unavailable Jean Guerin MD Unavailable + [phone] Sobia Domingo MD Unavailable Carleen Gracia EP Unavailable DesmondKimberlee balbuena [facility] Unavailable Unavailable DesmondKimberlee balbuena [facility] Unavailable Unavailable Reason for Visit * Reason Onset Date Comments Refill Request 10/13/2017 Ipratropium Encounter Details Date Type Department Care Team (Late st Contact Info) Description 10/13/2017 MyC Refill [facility] Emergency Dept [address] [place] [phone] Robin Espinal MD [address] [place] [address] Refill Request (Ipratropium) Social History Tobacco Use Types Packs/Day Years Used Date Smoking Tobacco: Some Days Cigarettes Smokeless Tobacco: Never Comments:Occasional Alcohol Use Standard Drinks/Week Comments No 0 (1 standard drink = 0.6 oz pur e alcohol) Comments No Sex and Gender Information Value Date Recorded Sex Assigned at Female 04/23/2018 4:04 PM LVN Legal Sex Female 9:39 AM LVN Gender Identity Female 04/23/2018 4:04 PM LVN Sexual Orientation Straight 04/23/2018 4: 04 PM LVN documented as of this encounter Miscellaneous Notes * Telephone Encounter - Sandi Garcia RN - 10/14/2017 2:20 PM CDT Ipratropium Prescription approved per [facility] Refill Protocol. Sandi Garcia RN, BSN * Telephone Encounter - Hortensia Hardy MA - 10/14/2017 8:[address] [facility]: Original authorizing provider: MD Keila Prater would like a refill of the following medications: ipratropium - albuterol 0.5 mg/2.5 mg/3 mL (DUONEB) 0.5-2.5 (3) MG/3ML neb solution [Robin Espinal MD] Preferred pharmacy: [facility] [id number] [facility] [place] [place] [address] [place] Comment: Medication renewals requested in this message routed to other providers: albuterol (PROAIR HFA/PROVENTIL HFA/VENTOLIN HFA) 108 (90 BASE) MCG/ACT Inhaler [Nilton Roach PA-C] documented in this encounter Plan of Treatment Upcoming Encounters Date Type Department Care Team (Late st Contact Info) Description 10/05/2024 1:00 PM CDT Virtual Visit [facility] [address] [facility] [address] [place] [address] Farzana Sabillon MD [address] [place], [place] [address] 10/06/2024 1:00 PM CDT Office Visit [facility] [address] [address] Jean Guerin MD 2000 [place] [address] 12/25/2024 10:30 AM CDT Office Visit [facility] [address] 200 [place] [phone] Soiba Domingo MD [address] [address] [place], [place] [address] documented as of this encounter Visit Diagnoses Diagnosis COPD exacerbation (H) Obstructive chronic bronchitis with exacerbation documented in this encounter Additional Health Concerns Infection Onset Date Last Indicated Resolved Time Rule Out COVID-19 09/12/2020 09/12/2020 09/13/2020 5:31 PM CDT documented as of this encounter Care Teams Timber Repairer Relationship Specialty Start Date End Date Nilton Roach PA-C [address] [address] PCP - General Physician Carpet Inspector Finished 01/02/17 03/06/23 Nilton Roach PA-C [address] [address] PCP - Assigned PCP 12/13/16 07/08/18 Mehreen Toussaint, GURJIT [address] [address] PCP - General 03/07/23 Nilton Roach PA-C [address] [address] Assigned PCP 12/13/16 12/21/22 [place] [address] [place] [address] Assigned Rheumatology Provider 02/26/20 03/27/24 Gray Lora MD [address] [place] [address] Assigned Pulmonology Provider 02/26/20 05/27/21 Reginald Wen MD [address] [place], [place] [address] Assigned Musculoskeletal Provider 05/29/20 07/19/20 Nik Bryan MD [address] [place] [address] Assigned Cancer Care Provider 02/26/20 11/17/21 Tracie Godinez MD [address] [facility] 100 [place] [address] Assigned Musculoskeletal Provider 05/22/20 05/28/20 Reginald Wen MD 4000 [place], [place] [address] Assigned Musculoskeletal Provider 02/26/20 05/21/20 Keegan Mcdonald MD [address] [place] [address] Assigned Pulmonology Provider 07/09/21 09/02/21 Keegan Mcdonald MD [address] [place] [address] Assigned Pulmonology Provider 12/30/21 05/03/23 Jean Guerin MD [address] [place] [address] Assigned PCP 12/22/22 05/29/23 Nilton Roach PA-C [address] [address] Assigned PCP 05/30/23 02/25/24 Farzana Sabillon MD [address] [place], [place] [address] Assigned Endocrinology Provider 08/27/23 [place] [address] [place] [address] Assigned Rheumatology Provider 03/28/24 06/27/24 Jean Guerin MD [address] [place] [address] Critical Care 06/12/24 Sobia Domingo MD [address] [place] [address] Assigned Rheumatology Provider 06/28/24 Carleen Garcia EP [facility] [address] [place] [address] Cardiac Rehabilitation Therapist 06/30/24 Kimberlee Logan [facility] Pharmacist Pharmacist 07/01/24 Kimberlee Logan [facility] Assigned MTM Pharmacist 07/26/24 documented as of this encounter
--- OUTSIDE RECORDS SUMMARY | 2024-08-12 21:04 | XMS_ITS | Encounter Summary ---
Author Organization [facility] Address [address] [place] [address] Care Team Providers Care Shoe Maker Name Role Phone Nilton Roach PA-C Primary Care Provider Nilton Roach PA-C Unavailable [phone] Betty Gupta MD Unavailable [phone] Gray Lora MD Unavailable [phone] Nik Bryan MD Unavailable Keegan Mcdonald MD Unavailable [phone] Keegan Mcdonald MD Unavailable [phone] Jean Guerin MD Unavailable + [phone] Mehreen Toussaint NP Primary Care Provider Nilton Roach PA-C Unavailable [phone] Farzana Sabillon MD Unavailable [phone] Saroj Romeo MD Unavailable Jean Guerin MD Unavailable + [phone] Sobia Domingo MD Unavailable Carleen Garcia Unavailable [phone] Kimberlee Logan [facility] Unavailable Unavailable Kimberlee Logan [facility] Unavailable Unavailable Reason for Referral * Consultation (Routine) - Closed Specialty Diagnoses / Procedures Referred By Contac t Referred To Contact Ophthalmology Diagnoses Long-term use of Plaquenil Betty Gupta MD [address] [place] [address] Phone: tel: fax: [address] [address] Phone: tel: Referral ID Status Reason Start Date Expiration Date Visits Re quested Visits Authorized [id number] Closed 10/18/2020 10/18/2021 1 1 Question Answer Referral Type: Optometry/Ophthalmology Reason for Referral: Other My Clinical Question Is: Plaquenil toxicity screening Preferred Locations: [facility] Scheduling Instructions: [facility] will call you to coordinate your care as prescribed by the provider. If you don t hear from a sales representative raw fibers within 2 business days, please call the number listed above. Comments Please be aware that coverage of these services is subject to the terms and limitations of your health insurance plan. Call member services at your health plan with any benefit or coverage questions. [facility] will call you to coordinate your care as prescribed by the provider. If you don t hear from a sales representative raw fibers within 2 business days, please call the number listed above. Encounter Details Date Type Department Care Team (Late st Contact Info) Description 10/18/2020 MyC Medical Advice [address] [address] Betty Gupta MD [address] [place] [address] Long-term use of Plaquenil (Primary Dx) [...] Sex Assigned at Female 04/23/2018 4:04 PM MOLDED GRID AND PARTS INSPECTOR Legal Sex Female 9:39 AM MOLDED GRID AND PARTS INSPECTOR Gender Identity Female 04/23/2018 4:04 PM MOLDED GRID AND PARTS INSPECTOR Sexual Orientation Straight 04/23/2018 4: 04 PM MOLDED GRID AND PARTS INSPECTOR documented as of this encounter Plan of Treatment Upcoming Encounters Date Type Department Care Team (Late st Contact Info) Description 10/05/2024 1:00 PM CDT Virtual Visit [facility] [address] [place] [phone] Farzana Sabillon MD [address] [facility] 200 [place], [place] [address] 10/06/2024 1:00 PM CDT Office Visit [facility] [address] [phone] Jean Guerin MD [address]01 [place] [address] 12/25/2024 10:30 AM CDT Office Visit [address] [phone] Sobia Domingo MD 606 [facility] 215 [place], [place] [address] Scheduled Referrals Name Type Priority Associated Diagnoses Orde r Schedule EYE ADULT REFERRAL Referral Routine Long-term use of Plaquenil Expected: 10/18/2020, Expires: 10/18/2021 documented as of this encounter Visit Diagnoses Diagnosis Long-term use of Plaquenil- Primary documented in this encounter Additional Health Concerns Assessment Noted Time PHQ-9 Depression Total Score: 2 09/21/19 20 7:02 AM CDT documented as of this encounter Care Teams Shoe Maker Relationship Specialty Start Date End Date Nilton Roach PA-C [address] [place] [address] PCP - General Physician Child Development Associate Teacher 01/02/17 03/06/23 Mehreen Toussaint NP [address] [address] PCP - General 03/07/23 Nilton Roach PA-C [address] [place] [address] Assigned PCP 12/13/16 12/21/22 [place] [address] [place] [address] Assigned Rheumatology Provider 02/26/20 03/27/24 Gray Lora MD [address] [place], [place] [address] Assigned Pulmonology Provider 02/26/20 05/27/21 Nik [place] MD [address] [place], [place] 524405 Assigned Cancer Care Provider 02/26/20 11/17/21 Keegan Mcdonald MD [address] [place] [id number] Assigned Pulmonology Provider 07/09/21 09/02/21 Keegan Mcdonald MD [address] [place] [id number] Assigned Pulmonology Provider 12/30/21 05/03/23 Jean Guerin MD [address] [place] [address] Assigned PCP 12/22/22 05/29/23 Nilton Roach PA-C [address] [place] [address] Assigned PCP 05/30/23 02/25/24 Farzana Sabillon MD [address] [place] [address] Assigned Endocrinology Provider 08/27/23 [place] [address] [place] [address] Assigned Rheumatology Provider 03/28/24 06/27/24 Jean Guerin MD [address] [place] [address] Critical Care 06/12/24 Sobia Domingo MD [address] [place] [address] Assigned Rheumatology Provider 06/28/24 Carleen Garcia [facility] [address] [place] [address] Cardiac Rehabilitation Therapist 06/30/24 Kimberlee Logan [facility] Pharmacist Pharmacist 07/01/24 Kimberlee Logan [facility] Assigned MTM Pharmacist 07/26/24 documented as of this encounter
--- OUTSIDE RECORDS SUMMARY | 2024-08-12 21:04 | XMS_ITS | Encounter Summary ---
Author Organization [facility] Address [address] [place] [address] Care Team Providers Care Weight Loss Consultant Name Role Phone Nilton Roach PA-C Primary Care Provider Nilton Roach PA-C Unavailable [phone] Betty Gupta MD Unavailable [phone] Gray Lora MD Unavailable [phone] Nik [place] MD Unavailable Keegan Mcdonald MD Unavailable Keegan Mcdonald MD Unavailable [phone] Jean Guerin MD Unavailable + [phone] Mehreen Toussaint NP Primary Care Provider Nilton Roach PA-C Unavailable [phone] Farzana Sabillon MD Unavailable [phone] Saroj Romeo MD Unavailable Jean Guerin MD Unavailable + [phone] Sobia Domingo MD Unavailable Carleen Garcia Unavailable [phone] Kimberlee Logan [facility] Unavailable Unavailable Kimberlee Logan RP Unavailable Unavailable Encounter Details Date Type Department Care Team (Late st Contact Info) Description 05/11/2021 MyC Medical Advice [facility] [place] [address] [facility], [address] [place] [phone] Chana Barker Social History Tobacco Use Types [...] Sex Assigned at Female 04/23/2018 4:04 PM GUIDE PLANT Legal Sex Female 9:39 AM GUIDE PLANT Gender Identity Female 04/23/2018 4:04 PM GUIDE PLANT Sexual Orientation Straight 04/23/2018 4: 04 PM GUIDE PLANT documented as of this encounter Plan of Treatment Upcoming Encounters Date Type Department Care Team (Late st Contact Info) Description 10/05/2024 1:00 PM CDT Virtual Visit [facility] [address] [place] [phone] Farzana Sabillon MD [address] [facility] 200 [place], [place] [address] 10/06/2024 1:00 PM CDT Office Visit [facility] [place] [place] [facility] [address] [phone] Jean Guerin MD 6401 [place] [address] 12/25/2024 10:30 AM CDT Office Visit [facility] [place] [address] [place] [address] [address] [place] [phone] Sobia Domingo MD [address] [place] [address] 215 [place], [place] [address] documented as of this encounter Visit Diagnoses Not on filedocumented in this encounter Additional Health Concerns Assessment Noted Time PHQ-9 Depression Total Score: 2 09/21/19 20 7:02 AM CDT documented as of this encounter Care Teams Weight Loss Consultant Relationship Specialty Start Date End Date Nilton Roach PA-C [address] [address] PCP - General Physician Qa Intern 01/02/17 03/06/23 Mehreen Toussaint NP [address] [address] PCP - General 03/07/23 Nilton Roach PA-C [address] [address] Assigned PCP 12/13/16 12/21/22 [place] [address] [facility] [place] [address] Assigned Rheumatology Provider 02/26/20 03/27/24 Gray Lora MD [address] [place] [address] Assigned Pulmonology Provider 02/26/20 05/27/21 Nik [place] MD [address] [place], [place] 6[address] Assigned Cancer Care Provider 02/26/20 11/17/21 Keegan Mcdonald MD [address] [place] [address] Assigned Pulmonology Provider 07/09/21 09/02/21 Keegan Mcdonald MD [address] [place] [address] Assigned Pulmonology Provider 12/30/21 05/03/23 Jean Guerin MD [address] [place] [address] Assigned PCP 12/22/22 05/29/23 Nilton Roach PA-C [address] [place], [place] [address] Assigned PCP 05/30/23 02/25/24 Farzana Sabillon MD [address] [place], [place] [address] Assigned Endocrinology Provider 08/27/23 [place] [address] [place] [address] Assigned Rheumatology Provider 03/28/24 06/27/24 Jean Guerin MD [address] [place] [address] Critical Care 06/12/24 Sobia Domingo MD [address] [place] [address] Assigned Rheumatology Provider 06/28/24 Carleen Garcia [facility] [address] [place] [address] Cardiac Rehabilitation Therapist 06/30/24 Kimberlee Logan RPH Pharmacist Pharmacist 07/01/24 Kimberlee Logan RPH Assigned MTM Pharmacist 07/26/24 documented as of this encounter
[2024-08-12 21:12] LABS: PCR FLU A Negative PCR FLU A (Negative); PCR FLU B Negative PCR FLU B (Negative); PCR RSV Negative PCR RSV (Negative); SARS PCR* Negative SARS-CoV-2 (Negative)
[2024-08-12 21:18] LABS: C Reactive Protein* 18.2 mg/dL (0.5-1.0); NT Pro B Type NatriureticPept* 106 pg/mL; Troponin I* < 0.01 ng/mL (0.01-0.04)
[2024-08-12] MEDS: IPRAT-ALBUT 0.5-2.5 MG/3 ML NEB 1 NEB IH (22:04)
[2024-08-12] MEDS: DOXYCYCLINE HYCLATE 100 MG PO (22:04)
[2024-08-12] MEDS: METHYLPREDNISOLONE SOD SUCC 62.5 MG/ML (125) 125 MG IVP (22:04)
[2024-08-12] MEDS: cefTRIAXone 1 GM in 0.9 % SODIUM CHLORIDE Mini-bag 100 ML IVPB (22:04)
[2024-08-13] VITALS (22 sets, daily range): BP systolic 98–151; BP diastolic 62–99; PULSE 71–100; RESP 11–31; TEMP 36.6–37.3; O2SAT 92–99; BMI 20.1
[2024-08-13] MEDS: IPRAT-ALBUT 0.5-2.5 MG/3 ML NEB 1 NEB IH ×2 (05:44→12:39)
[2024-08-13] MEDS: predniSONE 20 MG TABLET 60 MG PO (09:05)
--- NOTE | 2024-08-13 11:15 | PM.IMHP1 ---
Assessment and Plan Assessment and plan (1) Acute and chronic respiratory failure: Problem comment: - acute on chronic hypoxic respiratory failure, presumably combination of CAP and COPD exacerbation - steroids, nebs, Ceftriaxone and Doxycycline (08/12), symptomatic supplemental oxygen, RT referral Status: Acute (2) Community acquired pneumonia: Problem comment: - per above Status: Acute (3) COPD (chronic obstructive pulmonary disease): Problem comment: - history of severe emphysema, on thrice weekly Azithromycin + Dulera and Spiriva - follows with Dr. Guerin, Pulmonology, at [facility] Status: Acute (4) Anti-phospholipid syndrome: Problem comment: - history of DVT and PE, on lifelong Rivaroxaban Status: Acute (5) Lupus: Problem comment: - follows with [facility] Rheumatology, on Benlysta every Saturday Status: Acute (6) Elevated LFTs: Problem comment: - mildly elevated AST/ALT, asymptomatic - ddx: CHAVEZ, congestive hepatopathy, mild elevation 2/2 acute illness - follow Status: Acute Plan - per above - requires inpatient level of care given acute on chronic hypoxic respiratory failure, severe symptomatic dyspnea, comorbidities and immunosuppressed status Hospitalist- H&P: HPI History of Present Illness Date Seen: 08/13/24 Chief complaint: right chest pain/weak, cannot breathe Narrative: Keila Bello is a 64 year old female who presented to our ER last night for dyspnea. She has a history of oxygen dependent COPD and had had breathing difficulties for a few days. No fevers, no chest pain. No obvious alleviating or aggravating factors. ER Course and Findings: - presented with tachypnea, labored breathing, and O2 saturation of 84% on 4L NC - negative viral swab - WBC 16 with PMN predominance, negative procalcitonin - no acidosis on VBG, CO2 of 48 - RLL infiltrate on CXR; given IV Ceftriaxone and oral Doxycycline - boarded overnight until bed available on the floor this morning Upon arrival to the floor, patient continues to have dyspnea at rest. Histories updated below, PCP is Mehreen Toussaint in [place]. Review of Systems Narrative: - down approximately 6kg in the past year (thinks this started with increased exercise during a course of Pulmonary rehab) - no abdominal pain or nausea, + appetite - no chest pain or LE edema [facility] Medical History (Updated 08/13/24 @ 12:02 by Kaylin Hu MD) Palpitations ?R00.2 - Palpitations (ICD-10) Lupus ?M32.9 - Systemic lupus erythematosus, unspecified (ICD-10) SVT (supraventricular tachycardia) ?I47.10 - Supraventricular tachycardia, unspecified (ICD-10) Thoracic back pain ?M54.6 - Pain in thoracic spine (ICD-10) Anti-phospholipid syndrome ?D68.61 - Antiphospholipid syndrome (ICD-10) Asthma ?J45.909 - Unspecified asthma, uncomplicated (ICD-10) Lumbar degenerative disc disease ?M51.36 - Other intervertebral disc degeneration, lumbar region (ICD-10) COPD (chronic obstructive pulmonary disease) ?J44.9 - Chronic obstructive pulmonary disease, unspecified (ICD-10) Chronic low back pain ?M54.50 - Low back pain, unspecified (ICD-10) ?G89.29 - Other chronic pain (ICD-10) Left hip pain ?M25.552 - Pain in left hip (ICD-10) Lumbar back pain with radiculopathy affecting left lower extremity ?M54.16 - Radiculopathy, lumbar region (ICD-10) Dyslipidemia ?E78.5 - Hyperlipidemia, unspecified (ICD-10) Productive cough ?R05.8 - Other specified cough (ICD-10) Osteoporosis ?M81.0 - Age-related osteoporosis without current pathological fracture (ICD-10) History of stress test ?Z92.89 - Personal history of other medical treatment (ICD-10) Polyarthralgia ?M25.50 - Pain in unspecified joint (ICD-10) Seasonal allergies ?J30.2 - Other seasonal allergic rhinitis (ICD-10) Lung nodules ?R91.8 - Other nonspecific abnormal finding of lung field (ICD-10) Hx pulmonary embolism ?Z86.711 - Personal history of pulmonary embolism (ICD-10) History of positive PPD ?Z92.89 - Personal history of other medical treatment (ICD-10) Surgical History History of colonoscopy ?Z98.890 - Other specified postprocedural states (ICD-10) History of tubal ligation ?Z98.51 - Tubal ligation status (ICD-10) History of orthopedic surgery ?Z98.890 - Other specified postprocedural states (ICD-10) Family History Mother Diabetes Heart failure Leukemia Brother Coronary artery disease Father Kidney disease Diabetes Social History (Updated 08/13/24 @ 11:47 by Kaylin Hu MD) Narrative: , 2 children, no formal exercise Former smoker, no concerning ETOH or drug use, requests Full Code status. What is your current living situation?: I presently have a place to live Problems where you live: no known problems Problems where you live details: none In the past 12 months, utilities in danger of being shut off: no In past 12 months, lack of transportation kept you from medical appts, meetings, work, or getting things needed for daily living: no In the past 12 mos, have been you worried that your food would run out before you had money to buy more?: never true In the past 12 mos, the food you bought just didn't last and you didn't have money to buy more?: never true Highest level of school completed/degree received: Associate degree: occupational, technical, vocational program Smoking Status: Former smoker Do you use any of these nicotine containing products: None Second hand tobacco smoke exposure: No How often do you have a drink containing alcohol: never How often do you have six or more drinks on one occasion: Never AUDIT-C Alcohol total score: 0 Non-prescribed substance use: denies use Caffeine: Yes How often does anyone, including family, friends and others, physically hurt you: never How often does anyone, including family, friends and others, insult or talk down to you: never How often does anyone, including family, friends and others, threaten you with harm: never How often does anyone, including family, friends and others, scream or curse at you: never service: No Meds Home Medications and Allergies Home Medications ?Medication ?Instructions ?Recorded ?Confirmed ?Type cholecalciferol (vitamin D3) 125 125 mcg PO HS 11/15/23 08/13/24 History mcg (5,000 unit) capsule vitamin B comp and C no.3 15 mg-10 1 cap PO HS 06/02/24 08/13/24 History mg-50 mg-5 mg-300 mg capsule (B Complex Plus Vitamin C) azithromycin 250 mg tablet 250 mg PO 3XW 08/13/24 08/13/24 History belimumab 200 mg/mL subcutaneous 200 mg subcut Q7D 08/13/24 08/13/24 History auto-injector (Benlysta) calcium carbonate (Oyster Shell 500 mg PO HS 08/13/24 08/13/24 History Calcium) ipratropium 0.5 mg-albuterol 3 mg 3 ml inhalation QID PRN 08/13/24 08/13/24 History (2.5 mg base)/3 mL nebulization soln magnesium oxide 400 mg PO HS 08/13/24 08/13/24 History mometasone-formoterol HFA 200 2 puff inhalation BID 08/13/24 08/13/24 History mcg-5 mcg/actuation aerosol inhaler (Dulera) rivaroxaban 20 mg tablet (Xarelto) 20 mg PO HS 08/13/24 08/13/24 History simvastatin 10 mg tablet 10 mg PO HS 08/13/24 08/13/24 History tiotropium bromide 18 mcg capsule 1 cap inhalation DAILY 08/13/24 08/13/24 History with inhalation device (Spiriva with HandiHaler) tizanidine 2 mg tablet 2 mg PO TID PRN for low back pain 08/13/24 08/13/24 History tizanidine 4 mg tablet 4 mg PO HS muscle spasticity 08/13/24 08/13/24 History triamcinolone acetonide 0.1 % 1 applic topical BID PRN 08/13/24 08/13/24 History topical cream turmeric 400 mg capsule 400 mg PO HS 08/13/24 08/13/24 History Allergies Allergy/AdvReac Type Severity Reaction Status Date / Time acetaminophen (From Tylenol) Allergy Hives Verified 08/13/24 11:43 warfarin (From Coumadin) Allergy Hives Verified 08/13/24 05:35 Exam Narrative: Exam Narrative: GEN: Alert and answering questions appropriately, 3-4 word dyspnea HEENT: EOMIs bilaterally, no scleral icterus CV: RRR, No concerning murmurs R: Decreased bibasilar breath sounds, apical wheeze bilaterally, RR 26-28 during my exam Ab: Soft, no ttp, no HSM Ext: wwp, no concerning edema Skin: No concerning skin lesions or rashes on exposed skin Neuro: Nonfocal Psych: Appropriate Const: Vital Signs, click to edit/add: Vital Signs - 24 hr 08/12/24 20:22 08/12/24 20:38 08/12/24 20:39 Temperature 98.1 F Pulse Rate 120 H 118 H Pulse Rate [Pulse Oximeter] 114 H Respiratory Rate 32 H Blood Pressure 95/78 Blood Pressure [Ri ght Arm] Blood Pressure [Ri ght Upper Arm] 153/82 H Pulse Oximetry 84 L 94 96 Oxygen Delivery Me thod Nasal Cannula Oxygen Flow Rate 4 08/12/24 20:42 08/12/24 20:43 08/12/24 20:44 Temperature Pulse Rate 118 H Pulse Rate [Pulse Oximeter] Respiratory Rate Blood Pressure 123/63 Blood Pressure [Ri ght Arm] Blood Pressure [Ri ght Upper Arm] Pulse Oximetry 97 96 96 Oxygen Delivery Me thod OxyMask Oxygen Flow Rate 08/12/24 20:45 08/12/24 21:00 08/12/24 21:01 Temperature Pulse Rate 119 H 114 H 114 H Pulse Rate [Pulse Oximeter] Respiratory Rate Blood Pressure 120/81 Blood Pressure [Ri ght Arm] Blood Pressure [Ri ght Upper Arm] Pulse Oximetry 97 99 99 Oxygen Delivery Me thod Oxygen Flow Rate 08/12/24 21:15 08/12/24 21:21 08/12/24 21:30 Temperature Pulse Rate 105 H 103 H 101 H Pulse Rate [Pulse Oximeter] Respiratory Rate 23 20 22 Blood Pressure 112/69 Blood Pressure [Ri ght Arm] Blood Pressure [Ri ght Upper Arm] Pulse Oximetry 97 98 99 Oxygen Delivery Me thod Oxygen Flow Rate 08/12/24 21:41 08/12/24 21:45 08/12/24 22:00 Temperature Pulse Rate 102 H 101 H 103 H Pulse Rate [Pulse Oximeter] Respiratory Rate 15 11 L Blood Pressure 108/64 Blood Pressure [Ri ght Arm] Blood Pressure [Ri ght Upper Arm] Pulse Oximetry 99 98 96 Oxygen Delivery Me thod Oxygen Flow Rate 08/12/24 22:01 08/12/24 22:15 08/12/24 22:21 Temperature Pulse Rate 102 H 100 98 Pulse Rate [Pulse Oximeter] Respiratory Rate 26 H 19 16 Blood Pressure 121/74 105/66 Blood Pressure [Ri ght Arm] Blood Pressure [Ri ght Upper Arm] Pulse Oximetry 95 97 96 Oxygen Delivery Me thod Oxygen Flow Rate 08/12/24 22:30 08/12/24 22:41 08/12/24 22:45 Temperature Pulse Rate 97 99 99 Pulse Rate [Pulse Oximeter] Respiratory Rate 21 17 16 Blood Pressure 113/68 Blood Pressure [Ri ght Arm] Blood Pressure [Ri ght Upper Arm] Pulse Oximetry 96 95 95 Oxygen Delivery Me thod Oxygen Flow Rate 08/12/24 23:02 08/12/24 23:31 08/13/24 00:01 Temperature Pulse Rate 98 97 99 Pulse Rate [Pulse Oximeter] Respiratory Rate 18 14 11 L Blood Pressure 119/78 115/93 H 116/62 Blood Pressure [Ri ght Arm] Blood Pressure [Ri ght Upper Arm] Pulse Oximetry 96 97 96 Oxygen Delivery Me thod Oxygen Flow Rate 08/13/24 01:01 08/13/24 02:01 08/13/24 03:01 Temperature Pulse Rate 100 97 93 Pulse Rate [Pulse Oximeter] Respiratory Rate 24 27 H 20 Blood Pressure 127/71 112/78 110/73 Blood Pressure [Ri ght Arm] Blood Pressure [Ri ght Upper Arm] Pulse Oximetry 97 98 99 Oxygen Delivery Me thod OxyMask Oxygen Flow Rate 3 08/13/24 04:01 08/13/24 05:01 08/13/24 06:01 Temperature Pulse Rate 87 90 95 Pulse Rate [Pulse Oximeter] Respiratory Rate 22 23 15 Blood Pressure 115/72 113/75 99/76 Blood Pressure [Ri ght Arm] Blood Pressure [Ri ght Upper Arm] Pulse Oximetry 98 98 96 Oxygen Delivery Me thod OxyMask Oxygen Flow Rate 3 08/13/24 07:00 08/13/24 07:01 08/13/24 07:30 Temperature Pulse Rate 87 86 93 Pulse Rate [Pulse Oximeter] Respiratory Rate 21 21 16 Blood Pressure 98/68 Blood Pressure [Ri ght Arm] Blood Pressure [Ri ght Upper Arm] Pulse Oximetry 98 98 97 Oxygen Delivery Me thod Oxygen Flow Rate 08/13/24 08:00 08/13/24 08:01 08/13/24 08:01 Temperature Pulse Rate 89 88 88 Pulse Rate [Pulse Oximeter] Respiratory Rate 20 17 17 Blood Pressure 109/74 109/74 Blood Pressure [Ri ght Arm] Blood Pressure [Ri ght Upper Arm] Pulse Oximetry 97 97 97 Oxygen Delivery Me thod Oxygen Flow Rate 08/13/24 08:30 08/13/24 09:00 08/13/24 09:01 Temperature Pulse Rate 88 84 91 Pulse Rate [Pulse Oximeter] Respiratory Rate 25 H 21 31 H Blood Pressure 110/82 Blood Pressure [Ri ght Arm] Blood Pressure [Ri ght Upper Arm] Pulse Oximetry 95 95 97 Oxygen Delivery Me thod Oxygen Flow Rate 08/13/24 10:50 Temperature Pulse Rate Pulse Rate [Pulse Oximeter] Respiratory Rate 22 Blood Pressure Blood Pressure [Ri ght Arm] 151/99 H Blood Pressure [Ri ght Upper Arm] Pulse Oximetry 94 Oxygen Delivery Me thod OxyMask Oxygen Flow Rate 2.5 Hospitalist - H&P: Result Labs Labs: Short CBC 08/12/24 Range/Units 20:20 WBC 16.19 H (4.50-11.00) K/uL Hgb 11.8 L (12.0-16.0) gm/dL Hct 37.4 (33.0-51.0) % Plt Count 420 (140-440) K/uL BMP 08/12/24 20:20 Sodium 137 Potassium 4.2 Chloride 100 Carbon Dioxide 26 BUN 10 Creatinine 0.5 Glucose 118 H Calcium 9.4 Cardiac Enzymes 08/12/24 Range/Units 20:20 Troponin I < 0.01 (0.01-0.04) ng/mL Liver Function 08/12/24 Range/Units 20:20 Total Bilirubin 0.7 (0.1-1.5) mg/dL Direct Bilirubin 0.4 (0.0-0.5) mg/dL AST 37 H (12-35) U/L ALT 46 H (4-35) U/L Alkaline Phosphatase 82 (40-150) U/L Albumin 4.4 (3.3-5.0) g/dL
[2024-08-13] MEDS: ALBUTEROL SULFATE 2.5 MG/3 ML VIAL.NEB NEB ×3 (11:35→20:51)
--- NOTE | 2024-08-13 11:44 | REH.PT ---
Hold PT/OT gabe's until tomorrow per
[2024-08-13] MEDS: guaiFENesin 600 MG TAB.ER.12H 1200 MG PO ×2 (12:03→20:53)
--- NOTE | 2024-08-13 13:09 | PC.NURSE ---
End of Shift Note: Patient was admitted from the ER around mid morning. Came in d/t shortness of breath and has a H/O COPD x-ray shows possibly pneumonia. Upon arrival she was very short of breath could only get a few words out at a time and would need to take a breath wait a little bit and then continue. With activity have noted she does drop her oxygen sat to 84% with the O2 nasal cannula at 2L. She did ambulate to the bathroom x1 so far. She is alert and orientated. Has received a couple of nebs and this has improved her breathing and she is able to get complete sentence out now and is coughing up green phlegm per her report. She also requested an aerobika which has been given and she is also using this. Has chronic back pain which she does not like to take medications for pain as she says she is very sensitive to medications. She requested a heating pad which have sent up a aqua-k pad for her and she says its helping with this. Will continue to monitor until next shift arrives.
--- NOTE | 2024-08-13 18:53 | PC.NURSE ---
End of Shift: Patient pleasant and cooperative, A&O. VSS, afebrile. SpO2 remained above 90% on 2.5L NC. Patient denies pain this shift. PRN medication given for SOB. Patient denies chest pain. Tolerating regular diet. SBA.
[2024-08-13] MEDS: DOXYCYCLINE HYCLATE 100 MG PO (20:52)
[2024-08-13] MEDS: SIMVASTATIN 10 MG TABLET PO (20:52)
[2024-08-13] MEDS: TIZANIDINE HCL 4 MG TABLET PO (20:52)
[2024-08-13] MEDS: RIVAROXABAN 10 MG TABLET 20 MG PO (20:53)
[2024-08-13] MEDS: SODIUM CHLORIDE 0.9 % (FLUSH) 10 ML SYRINGE 5 ML IVF (20:54)
[2024-08-13] MEDS: cefTRIAXone 1 GM in 0.9 % SODIUM CHLORIDE Mini-bag 100 ML IVPB (20:54)
[2024-08-14] VITALS (8 sets, daily range): BP systolic 108–137; BP diastolic 69–94; PULSE 79–100; RESP 18–20; TEMP 36.6–37.3; O2SAT 95–97
[2024-08-14] MEDS: IPRAT-ALBUT 0.5-2.5 MG/3 ML NEB 1 NEB IH ×4 (01:01→19:58)
--- NOTE | 2024-08-14 05:24 | PC.NURSE ---
Shift note: Patient continue to be on 2.5L of oxygen throughout the shift. O2 has been above 95%, however, patient was complained of having difficulty catching breath at 2 separate occasion at 2110 and 0230, Albuterol and DuoNeb given respectively. Temperature at 2300 slightly elevated to 99.9. Other v/s were stable. Occasional cough and SOB noted.
[2024-08-14 06:17] LABS: HCO3 VBG 30 mmol/L (21-28); PCO2 VBG 45 mmHG (40-50); PO2 VBG 47.3 mmHG (25-47); pH VBG 7.422 (7.32-7.43)
[2024-08-14] MEDS: OMEPRAZOLE 20 MG CAPSULE DR PO (06:20)
[2024-08-14 06:23] LABS: Basophils Percent Auto 0.1 % (0.0-3.0); Hematocrit 30.5 % (33.0-51.0); Hemoglobin* 9.8 gm/dL (12.0-16.0); Immature Granulocytes Pct Auto 0.2 %; Lymphocytes Percent Auto 6.7 % (20-44); Mean Corpuscular HGB Conc 32 gm/dL (32-36); Mean Corpuscular Hemoglobin 29 pg (26-34); Mean Corpuscular Volume 89 fL (80-100); Monocytes Percent Auto 8.3 % (0.0-11.0); Neutrophils Percent Auto 84.7 % (42.0-72.0); Platelet Count* 386 K/uL (140-440); RDW Coefficient of Variation % 13.1 % (11.5-15.5); Red Blood Count 3.44 m/uL (4.00-5.20); White Blood Count* 14.27 K/uL (4.50-11.00)
[2024-08-14 06:30] LABS: Slide Review Reflex No
[2024-08-14 06:41] LABS: Albumin* 3.5 g/dL (3.3-5.0); Chloride* 104 mmol/L (96-114); Sodium* 139 mmol/L (135-149)
[2024-08-14 06:44] LABS: Alanine Aminotransferase* 49 U/L (4-35); Alkaline Phosphatase* 68 U/L (40-150); Anion Gap 5 mEq/L (7-15); Aspartate Amino Transferase* 43 U/L (12-35); Bilirubin Total* 0.3 mg/dL (0.1-1.5); Blood Urea Nitrogen* 17 mg/dL (7-30); Calcium* 9.1 mg/dL (8.4-10.6); Carbon Dioxide* 30 mmol/L (20-32); Creatinine* 0.5 mg/dL (0.5-1.5); Est. Creatinine Clearance* 40.82; Estimated Glomerular Filt Rate 105 ml/min; Glucose* 136 mg/dL (60-115); Total Protein* 6.4 g/dL (6.0-8.3)
--- NOTE | 2024-08-14 07:15 | PM.IMPN1 ---
Assessment and Plan Assessment and plan (1) Acute and chronic respiratory failure: Problem comment: - acute on chronic hypoxic respiratory failure, presumably combination of CAP and COPD exacerbation - steroids, nebs, Ceftriaxone and Doxycycline (08/12), symptomatic supplemental oxygen, RT following Status: Acute (2) Community acquired pneumonia: Problem comment: - per above Status: Acute (3) COPD (chronic obstructive pulmonary disease): Problem comment: - history of severe emphysema, on thrice weekly Azithromycin + Dulera and Spiriva - follows with Dr. Guerin, Pulmonology, at [facility] Status: Acute (4) Anti-phospholipid syndrome: Problem comment: - history of DVT and PE, on lifelong Rivaroxaban Status: Acute (5) Lupus: Problem comment: - follows with [facility] Rheumatology, on Benlysta every Saturday Status: Acute (6) Elevated LFTs: Problem comment: - mildly elevated AST/ALT, asymptomatic - ddx: CHAVEZ, congestive hepatopathy, mild elevation 2/2 acute illness - tolerating po intake, plan for outpatient f/u Status: Acute (7) Anemia: Problem comment: - normocytic, no evidence of acute bleeding - Hgb 11.8 on 08/12, down to 9.8 on 08/14 - normal BUN, on PPI, continue to follow Status: Acute Plan - per above (continue treatments for COPD and CAP, follow Hgb) - expect d/c home tomorrow if continues to clinically improve Subjective Date Seen: 08/14/24 Interval history: Keila was admitted to the hospital on 08/13/24 for acute on chronic hypoxic respiratory failure in the setting of chronic emphysema and acute CAP. Receiving antibiotics (IV Ceftriaxone and oral Doxycycline), nebulizer treatments, steroids, supplemental oxygen. Upon admission, had 2-3 word dyspnea, difficulty with ADLs. This morning, improved but not yet back to baseline. Oxygen needs have decreased. Objective data: Tmax 99.1, WBC 14 (16 on admission). Mild drop in Hgb from 11.8 --> 9.8, BUN normal. Mild increase in AST/ALT(40s), normal bilirubin and alk phos Exam Narrative: Exam Narrative: GEN: Alert and oriented, able to speak in longer phrases today during our visit HEENT: EOMIs bilaterally, no scleral icterus CV: RRR, distant heart sounds R: Decreased bibasilar breath sounds, apical wheezing from admission has improved Ext: wwp, no concerning edema Skin: No concerning skin lesions or rashes on exposed skin Neuro: Nonfocal Psych: Appropriate Const: Vital Signs, click to edit/add: Vital Signs - 24 hr 08/13/24 07:30 08/13/24 08:00 08/13/24 08:01 Temperature Pulse Rate 93 89 88 Pulse Rate [Pulse Oximeter] Respiratory Rate 16 20 17 Blood Pressure 109/74 Blood Pressure [Ri ght Arm] Pulse Oximetry 97 97 97 Oxygen Delivery Me thod Oxygen Flow Rate 08/13/24 08:01 08/13/24 08:30 08/13/24 09:00 Temperature Pulse Rate 88 88 84 Pulse Rate [Pulse Oximeter] Respiratory Rate 17 25 H 21 Blood Pressure 109/74 Blood Pressure [Ri ght Arm] Pulse Oximetry 97 95 95 Oxygen Delivery Me thod Oxygen Flow Rate 08/13/24 09:01 08/13/24 10:50 08/13/24 10:50 Temperature Pulse Rate 91 Pulse Rate [Pulse Oximeter] Respiratory Rate 31 H 22 24 Blood Pressure 110/82 Blood Pressure [Ri ght Arm] 151/99 H Pulse Oximetry 97 94 92 Oxygen Delivery Me thod OxyMask OxyMask Oxygen Flow Rate 2.5 2.5 08/13/24 12:59 08/13/24 15:00 08/13/24 15:00 Temperature 99.1 F Pulse Rate 99 Pulse Rate [Pulse Oximeter] 99 Respiratory Rate 18 18 Blood Pressure Blood Pressure [Ri ght Arm] 134/95 H Pulse Oximetry 92 92 Oxygen Delivery Me thod Room Air Nasal Cannula Oxygen Flow Rate 2.5 08/13/24 15:00 08/13/24 15:00 08/13/24 19:00 Temperature 98.6 F Pulse Rate 97 Pulse Rate [Pulse Oximeter] 99 95 Respiratory Rate 18 18 Blood Pressure Blood Pressure [Ri ght Arm] 128/81 Pulse Oximetry 97 Oxygen Delivery Me thod Nasal Cannula Oxygen Flow Rate 2.5 08/13/24 22:13 08/13/24 22:16 08/13/24 22:16 Temperature 98 F Pulse Rate Pulse Rate [Pulse Oximeter] 85 85 Respiratory Rate 18 18 18 Blood Pressure Blood Pressure [Ri ght Arm] 101/71 Pulse Oximetry 96 96 Oxygen Delivery Me thod Nasal Cannula Nasal Cannula Oxygen Flow Rate 2.5 2.5 08/13/24 23:00 08/14/24 03:00 Temperature 97.8 F Pulse Rate 71 Pulse Rate [Pulse Oximeter] 85 Respiratory Rate 18 Blood Pressure Blood Pressure [Ri ght Arm] 108/71 Pulse Oximetry 97 Oxygen Delivery Me thod Nasal Cannula Oxygen Flow Rate 2.5 Labs Labs: Laboratory Results - last 24 hr 08/14/24 06:05 WBC 14.27 H RBC 3.44 L Hgb 9.8 L Hct 30.5 L MCV 89 MCH 29 MCHC 32 RDW Coeff of Maria D 13.1 Plt Count 386 Neut % (Auto) 84.7 H Lymph % (Auto) 6.7 L [place] % (Auto) 8.3 Eos % (Auto) 0.0 Baso % (Auto) 0.1 Neut # (Auto) 12.10 H Lymph # (Auto) 1.00 [place] # (Auto) 1.20 H Eos # (Auto) 0.00 Baso # (Auto) 0.00 Abs Immat Gran (auto) 0.00 Imm/Tot Granulo (auto) 0.2 VBG pH 7.422 VBG pCO2 45 VBG pO2 47.3 H VBG HCO3 30 H Sodium 139 Potassium 4.0 Chloride 104 Carbon Dioxide 30 Anion Gap 5 L BUN 17 Creatinine 0.5 Estimated Creat Clear 40.82 Estimated GFR 105 Glucose 136 H Calcium 9.1 Total Bilirubin 0.3 AST 43 H ALT 49 H Alkaline Phosphatase 68 Total Protein 6.4 Albumin 3.5
[2024-08-14] MEDS: predniSONE 20 MG TABLET 40 MG PO (08:07)
[2024-08-14] MEDS: SODIUM CHLORIDE 0.9 % (FLUSH) 10 ML SYRINGE 5 ML IVF ×2 (09:23→21:16)
[2024-08-14] MEDS: DOXYCYCLINE HYCLATE 100 MG PO ×2 (09:23→21:15)
[2024-08-14] MEDS: guaiFENesin 600 MG TAB.ER.12H 1200 MG PO ×2 (09:23→21:15)
--- NOTE | 2024-08-14 10:04 | NUTR.NU ---
RDN with MD consult for recently weight loss. Patient admitted for COPD Exacerbation. Current weight 103 lbs; height 5ft; BMI 20.1 kg/m2. Per weight history, patient has lost about 10 lbs within 90 days, significant weight loss at 8.8%. Loss of 13 lbs within 1 year, 11.2%. Current diet is Regular. Meal intakes since admit have been adequate at 75%+. Visited with pt; Pt reports she has always had issues keeping her weight on. She reports its normal for her to weigh 90 lbs. She has tried multiple dietary interventions in the past, including high-protein, high-calorie diets and use of protein supplements TID. She reports nothing she has done has made a difference in her weight. She reports eating multiple times daily, 3 meals with snacks. She snacks on peanut butter pretzels, ice cream, yogurt. RDN offered diet education and/or scheduled nutrition supplements during hospital stay, however patient adamantly refused. RDN encouraged her to let staff know if she has any questions or concerns. No nutrition interventions at this time. RDN will continue to monitor.
[2024-08-14] MEDS: ALBUTEROL SULFATE 2.5 MG/3 ML VIAL.NEB NEB (10:17)
--- NOTE | 2024-08-14 10:31 | RESP.RT ---
Respiratory Therapy Assessment: The patient was assessed today by respiratory therapy. She reports feeling much better subjectively. Her respiratory distress is rated at 3 out of 10, which is near her baseline. The patient requested a DuoNeb treatment after breakfast and stated that she typically uses approximately five DuoNeb treatments daily at home. She is using her Aerobika device independently and frequently. Her SpO2 is 94% on 2.5 L/min of oxygen, consistent with her home use. The patient expressed concerns regarding her maintenance inhaler, which are currently being addressed by the attending physician and pharmacy. Additionally, she requested an expectorant be added to her regimen, as she uses one at home. Respiratory therapy will continue to follow and be available as needed.
--- NOTE | 2024-08-14 10:35 | RESP.RT ---
Respiratory Therapy Assessment: The patient was assessed today by respiratory therapy for evaluation of oxygen needs. She is currently on room air with an SpO? saturation of 98%. The patient is not in respiratory distress and appears in good spirits. She expressed hope that she will be able to discharge home today. Findings were reported to the attending physician. Respiratory therapy will continue to follow and remain available as needed.
--- NOTE | 2024-08-14 13:31 | REH.PT ---
Orders for PT Eval & Treat received, chart reviewed. Pt up self ambulating in room upon approach without an AD and self managing oxygen tubing. Pt on 1.5 L o2 at rest with spo2 >90%. After amb ~50 feet sp02 drops to 84% and recovers to >88% with 30 sec of seated rest. Pt appears at her baseline with regards to functional mobility at this time. Understands energy conservation techniques and self monitors her spo2. No further skilled PT warranted. D/C PT.
--- NOTE | 2024-08-14 14:30 | PC.NURSE ---
End of Shift ([id number]): Patient pleasant and cooperative, A&O. VSS, afebrile. SpO2 maintained above 90% on 1.5L O2 via NC. Patient reports SOB this shift, managed with PRN medications, see MAR. Patient reports pain in her back this shift, managed with aqua-K pad. Tolerating regular diet. SBA. ?
[2024-08-14] MEDS: Tiotropium Bromide [Spiriva With Handihaler] 18 mcg capsule 1 EACH IH (17:38)
--- NOTE | 2024-08-14 19:37 | PC.NURSE ---
Patient alert and oriented x4. Remains on 2LNC however patient states that she is on 2LNC at baseline at home. The patient also states that she adjusts her 02 with ambulation at home. Denies feeling SOB. Other vital signs stable. NSR on tele.
[2024-08-14] MEDS: cefTRIAXone 1 GM in 0.9 % SODIUM CHLORIDE Mini-bag 100 ML IVPB (21:14)
[2024-08-14] MEDS: RIVAROXABAN 10 MG TABLET 20 MG PO (21:15)
[2024-08-14] MEDS: TIZANIDINE HCL 4 MG TABLET PO (21:15)
[2024-08-14] MEDS: SIMVASTATIN 10 MG TABLET PO (21:15)
[2024-08-15 03:00] VITALS: BP 99/66; PULSE 84; RESP 20; TEMP 36.5; O2SAT 97
[2024-08-15] MEDS: IPRAT-ALBUT 0.5-2.5 MG/3 ML NEB 1 NEB IH ×2 (03:33→08:52)
--- NOTE | 2024-08-15 05:40 | PC.NURSE ---
Shift note: Pt pleasant, alert and oriented. Continue on 2L oxygen. O2 has been between 94 and 97. She denied any pain. SBA to and from BR. Vitally stable. X2 DuoNeb given tonight. Patient had adequate sleep.
[2024-08-15 06:51] LABS: HCO3 VBG 31 mmol/L (21-28); PCO2 VBG 50 mmHG (40-50); PO2 VBG 42.5 mmHG (25-47); pH VBG 7.406 (7.32-7.43)
[2024-08-15 07:00] LABS: Basophils Absolute Auto 0.02 K/uL (0.00-0.30); Basophils Percent Auto 0.2 % (0.0-3.0); Eosinophils Absolute Auto 0.02 K/uL (0.00-0.50); Eosinophils Percent Auto 0.2 % (0.0-7.0); Hematocrit 31.7 % (33.0-51.0); Hemoglobin* 9.9 gm/dL (12.0-16.0); Immature Granulocytes Abs Auto 0.02 K/uL (0.00-0.30); Immature Granulocytes Pct Auto 0.2 %; Lymphocytes Percent Auto 15.2 % (20-44); Mean Corpuscular HGB Conc 31 gm/dL (32-36); Mean Corpuscular Hemoglobin 28 pg (26-34); Mean Corpuscular Volume 90 fL (80-100); Monocytes Percent Auto 10.8 % (0.0-11.0); Neutrophils Percent Auto 73.4 % (42.0-72.0); Platelet Count* 434 K/uL (140-440); Red Blood Count 3.53 m/uL (4.00-5.20); White Blood Count* 10.19 K/uL (4.50-11.00)
[2024-08-15 07:07] LABS: Slide Review Reflex No
[2024-08-15 07:10] LABS: Albumin* 3.5 g/dL (3.3-5.0); Chloride* 104 mmol/L (96-114); Sodium* 140 mmol/L (135-149)
[2024-08-15 07:11] LABS: Potassium* 3.8 mmol/L (3.6-5.1)
[2024-08-15 07:13] LABS: Alanine Aminotransferase* 60 U/L (4-35); Alkaline Phosphatase* 73 U/L (40-150); Anion Gap 5 mEq/L (7-15); Aspartate Amino Transferase* 37 U/L (12-35); Bilirubin Total* 0.3 mg/dL (0.1-1.5); Blood Urea Nitrogen* 18 mg/dL (7-30); Carbon Dioxide* 31 mmol/L (20-32); Creatinine* 0.6 mg/dL (0.5-1.5); Est. Creatinine Clearance* 40.82; Estimated Glomerular Filt Rate 100 ml/min; Total Protein* 6.2 g/dL (6.0-8.3)
[2024-08-15 07:14] LABS: Calcium* 9.1 mg/dL (8.4-10.6); Glucose* 88 mg/dL (60-115)
[2024-08-15 07:45] VITALS: PULSE 86; RESP 18; O2SAT 98
[2024-08-15 07:53] VITALS: PULSE 81
[2024-08-15 08:15] VITALS: BP 110/84; PULSE 86; RESP 18; TEMP 36.6; O2SAT 98
--- NOTE | 2024-08-15 08:26 | PM.DS1 ---
DS: Providers Provider Date Seen: 08/15/24 Date of admission: 08/13/24 11:08 Primary care physician: Mehreen Toussaint APRN, [employer] Admitting Clinician: Lucas Colunga MD Consults: Nutrition, PT, OT Attending Physician on discharge: Kaylin Hu MD Date of Discharge: 08/15/24 DS: Diagnosis Discharge Diagnosis (1) Acute and chronic respiratory failure: Status: Acute Problem details: - acute on chronic hypoxic respiratory failure, presumably combination of CAP and COPD exacerbation - steroids, nebs, Ceftriaxone and Doxycycline (08/12), symptomatic supplemental oxygen, RT followed during stay (2) Community acquired pneumonia: Status: Acute Problem details: - per above (3) COPD (chronic obstructive pulmonary disease): Status: Acute Problem details: - history of severe emphysema, on thrice weekly Azithromycin, Dulera, and Spiriva - follows with Dr. Guerin, Pulmonology, at [facility] (4) Anti-phospholipid syndrome: Status: Acute Problem details: - history of DVT and PE, on lifelong Rivaroxaban (5) Lupus: Status: Acute Problem details: - follows with [facility] Rheumatology, on Benlysta every Saturday (6) Elevated LFTs: Status: Acute Problem details: - mildly elevated AST/ALT, asymptomatic - ddx: CHAVEZ, congestive hepatopathy, mild elevation 2/2 acute illness - tolerating po intake, plan for outpatient f/u (7) Anemia: Status: Acute Problem details: - normocytic, no evidence of acute bleeding - Hgb 11.8 on 08/12, down to 9.8 on 08/14 - normal BUN, on PPI, continue to follow DS: Summary Time Spent with Patient Time attestation: Total time spent providing and/or coordinating discharge services: Exam Const: Vital Signs, click to edit/add: Vital Signs - 24 hr 08/14/24 11:00 08/14/24 15:28 08/14/24 15:40 Temperature 98.6 F 99.2 F Pulse Rate 97 Pulse Rate [Pulse Oximeter] 92 97 Respiratory Rate 18 20 Blood Pressure [Ri ght Arm] 117/69 133/84 Pulse Oximetry 95 97 Oxygen Delivery Me thod Nasal Cannula Nasal Cannula Oxygen Flow Rate 1.5 2 08/14/24 15:40 08/14/24 15:40 08/14/24 19:00 Temperature 98.6 F Pulse Rate Pulse Rate [Pulse Oximeter] 97 100 Respiratory Rate 20 20 20 Blood Pressure [Nv ght Arm] 137/94 H Pulse Oximetry 97 95 Oxygen Delivery Me thod Nasal Cannula Nasal Cannula Oxygen Flow Rate 2 2 08/14/24 22:03 08/14/24 23:00 08/14/24 23:00 Temperature 97.8 F Pulse Rate 79 Pulse Rate [Pulse Oximeter] 92 92 Respiratory Rate 20 20 [facility] 127/84 Pulse Oximetry 95 Oxygen Delivery Me thod Nasal Cannula Oxygen Flow Rate 2 08/14/24 23:00 08/15/24 03:00 08/15/24 08:15 Temperature 97.7 F 97.9 F Pulse Rate Pulse Rate [Pulse Oximeter] 84 86 Respiratory Rate 20 20 18 Blood Pressure [facility]] 99/66 110/84 Pulse Oximetry 95 97 98 Oxygen Delivery Me thod Nasal Cannula Nasal Cannula Room Air Oxygen Flow Rate 2 2 DS: Data Data Completed and Pending Labs on day of discharge: Labs from last 24 hours 08/15/24 06:07 WBC 10.19 RBC 3.53 L Hgb 9.9 L Hct 31.7 L MCV 90 MCH 28 MCHC 31 L RDW Coeff of Maria D 13.0 Plt Count 434 Neut % (Auto) 73.4 H Lymph % (Auto) 15.2 L [place] % (Auto) 10.8 Eos % (Auto) 0.2 Baso % (Auto) 0.2 Neut # (Auto) 7.50 H Lymph # (Auto) 1.50 [place] # (Auto) 1.10 H Eos # (Auto) 0.02 Baso # (Auto) 0.02 Abs Immat Gran (auto) 0.02 Imm/Tot Granulo (auto) 0.2 VBG pH 7.406 VBG pCO2 50 VBG pO2 42.5 VBG HCO3 31 H Sodium 140 Potassium 3.8 Chloride 104 Carbon Dioxide 31 Anion Gap 5 L BUN 18 Creatinine 0.6 Estimated Creat Clear 40.82 Estimated GFR 100 Glucose 88 Calcium 9.1 Total Bilirubin 0.3 AST 37 H ALT 60 H Alkaline Phosphatase 73 Total Protein 6.2 Albumin 3.5 Discharge Plan Discharge Disposition: Home, Self-Care Date of Admission: 08/13/24 11:08 Attending Provider on Discharge: Kaylin Hu Primary Care Provider: Mehreen Toussaint Condition: Improved Anticipated Discharge Date/Time: 08/15/24 08:19 Discharge Medications: New omeprazole 20 mg Capsule,Delayed Release(Dr/Ec) 20 mg PO DAILY@0700 Qty: 30 0RF doxycycline hyclate 100 mg Tablet 100 mg PO BID 12 Days Qty: 24 0RF prednisone 10 mg tablet 10 mg PO DIRECTED Qty: 41 0RF Rx Instructions: 4 tabs x4 days, then 2 tabs x7 days, then 1 tab x7 days, then 1/2 tab x8 days, then stop Continued albuterol sulfate 90 mcg/actuation HFA aerosol inhaler 2 puff inhalation Q4-6H PRN (Reason: shortness of breath or wheezing) 30 Days Qty: 8.5 11RF cholecalciferol (vitamin D3) 125 mcg (5,000 unit) capsule 125 mcg PO HS B Complex Plus Vitamin C 44-60-79-5-300 mg capsule 1 cap PO HS Rx Instructions: give with food (meal/snack) Benlysta 200 mg/mL auto-injector 200 mg subcut Q7D Patient Comments: SATURDAY HS Dulera 200-5 mcg/actuation HFA aerosol inhaler 2 puff inhalation BID azithromycin 250 mg tablet 250 mg PO 3XW Patient Comments: MON, WED, FRI calcium carbonate [Oyster Shell Calcium] 500 mg calcium (1,250 mg) tablet 500 mg PO HS magnesium oxide 400 mg magnesium tablet 400 mg PO HS turmeric 400 mg capsule 400 mg PO HS triamcinolone acetonide 0.1 % cream 1 applic topical BID PRN tizanidine 2 mg tablet 2 mg PO TID PRN (Reason: for low back pain) tizanidine 4 mg tablet 4 mg PO HS simvastatin 10 mg tablet 10 mg PO HS tiotropium bromide [Spiriva with HandiHaler] 18 mcg capsule, w/inhalation device 1 cap inhalation DAILY Xarelto 20 mg tablet 20 mg PO HS ipratropium-albuterol 0.5 mg-3 mg(2.5 mg base)/3 mL solution for nebulization 3 ml inhalation QID PRN Discharge Orders: Discharge Order (Routine); Ordered 08/15/24 Ordered By: Kaylin Hu Additional Instructions: Long Prednisone taper and Doxycycline sent to [facility]. You should also take Omeprazole while on Prednisone (to decrease risk of GI bleeding) since you also take Xarelto. I also sent one month of this to [facility]. Hold Benlysta for at least one week, your Cloth Handler and Angel Luis can help you know when to restart. Try [facility] for your RSV immunization, their phone number is [phone]. Activity Level: Activity as Tolerated and No strenuous activity Discharge Diet: Regular Follow Up Appointments: Mehreen Toussaint APRN, [employer] WORKER [Primary Care Provider] - (5-7 days for hospital d/c f/u) Forms: [email or web address] Info Instructions
[2024-08-15] MEDS: predniSONE 20 MG TABLET 40 MG PO (08:49)
[2024-08-15] MEDS: DOXYCYCLINE HYCLATE 100 MG PO (08:49)
[2024-08-15] MEDS: guaiFENesin 600 MG TAB.ER.12H 1200 MG PO (08:49)
[2024-08-15] MEDS: SODIUM CHLORIDE 0.9 % (FLUSH) 10 ML SYRINGE 5 ML IVF (08:51)
[2024-08-15] MEDS: OMEPRAZOLE 20 MG CAPSULE DR PO (09:04)
--- NOTE | 2024-08-15 10:58 | PC.NURSE ---
Pt doing well, shortness of breath with activity improving. Up independently in room. VSS. Denies pain. Patient belongings and discharge form signed. Education reviewed, no questions or concerns at this time. Pt discharged home via at 10:15am.
== END 2024-08-15 10:15 | disposition home or self-care (01) | DRG 189 ==
LOC: ED 08-13 07:35 → MEDSURG 08-13 10:43
PROVIDERS: Admitting Provider Family Medicine; Emergency Provider Family Medicine; PCP Nurse Practitioner Family; Visit Provider Family Medicine
DX: J96.21 Acute and chronic respiratory failure with hypoxia (principal); J18.9 Pneumonia, unspecified organism; J44.1 Chronic obstructive pulmonary disease with (acute) exacerbation; J44.0 Chronic obstructive pulmonary disease with (acute) lower respiratory infection; D68.61 Antiphospholipid syndrome; D84.9 Immunodeficiency, unspecified; Z87.891 Personal history of nicotine dependence; M32.9 Systemic lupus erythematosus, unspecified; Z86.711 Personal history of pulmonary embolism; E78.5 Hyperlipidemia, unspecified; Z79.01 Long term (current) use of anticoagulants; R79.89 Other specified abnormal findings of blood chemistry; D64.9 Anemia, unspecified; Z99.81 Dependence on supplemental oxygen
CPT/HCPCS: 36415; 71045; 80053; 82248; 82803; 83605; 83735; 83880; 84145; 84484; 85025; 86140; 87631; 93005; 94640; 94761; 97165; 99283; 99285; A9270; J0696; J2919; J7512

== ENCOUNTER 2024-08-20 18:46 | Outpatient (CLI) | payer MEDICARE, BC, SELFPAY | END 2024-08-20 18:47 | disposition home or self-care (01) | PROVIDERS: PCP Nurse Practitioner Family; Visit Provider Nurse Practitioner Family | DX: E78.5 Hyperlipidemia, unspecified (principal); D72.829 Elevated white blood cell count, unspecified | CPT/HCPCS: 80053; 80061; 85025 ==

== ENCOUNTER 2024-09-17 10:25 | Outpatient (CLI) | payer MEDICARE, BC, SELFPAY | END 2024-09-17 10:26 | disposition home or self-care (01) | LOC: KYNREF 10:34 | PROVIDERS: PCP Nurse Practitioner Family; Visit Provider Nurse Practitioner Family | DX: R05.8 Other specified cough (principal) | CPT/HCPCS: 85025 ==

== ENCOUNTER 2024-11-11 11:18 | Outpatient (CLI) | payer MEDICARE, BC, SELFPAY ==
--- NOTE | 2024-11-11 11:30 | CRLHL7_ITS ---
For Patients: As a result of the Century Cures Act, medical imaging exams and procedure reports are released immediately into your electronic medical record. You may view this report before your referring provider. If you have questions, please contact your health care provider. INDICATION: BILATERAL SCREENING MAMMOGRAM, ASYMPTOMATIC 64 Y/O FEMALE COMPARISON: 04/10/2023, 08/18/2020, 04/11/2018 TECHNIQUE: Digital mammogram in CC and MLO projections including computer-aided detection (CAD) and tomosynthesis. BREAST COMPOSITION: There are scattered areas of fibroglandular density. FINDINGS: No suspicious findings. ASSESSMENT: BI-RADS 1 Negative RECOMMENDATION: Annual screening mammogram. A lay language report of this examination will be provided to the patient. Dictated by: Reginald Harper MD @ 11/11/2024 13:09:11 (Electronically Signed)
== END 2024-11-11 11:19 | disposition home or self-care (01) ==
LOC: MAMMO 11:18
PROVIDERS: PCP Nurse Practitioner Family; Visit Provider Nurse Practitioner Family
DX: Z12.31 Encounter for screening mammogram for malignant neoplasm of breast (principal)
CPT/HCPCS: 77063; 77067

== ENCOUNTER 2024-11-24 14:10 | Outpatient (CLI) | payer MEDICARE, BC, SELFPAY | END 2024-11-24 14:11 | disposition home or self-care (01) | PROVIDERS: PCP Nurse Practitioner Family; Visit Provider Nurse Practitioner Family | DX: E78.5 Hyperlipidemia, unspecified (principal) | CPT/HCPCS: 80061; 80076 ==

== ENCOUNTER 2025-01-29 15:06 | Outpatient (CLI) | payer MEDICARE, BC, SELFPAY | END 2025-01-29 15:07 | disposition home or self-care (01) | PROVIDERS: PCP Nurse Practitioner Family; Visit Provider Nurse Practitioner Family | DX: E78.5 Hyperlipidemia, unspecified (principal); R00.0 Tachycardia, unspecified; Z82.49 Family history of ischemic heart disease and other diseases of the circulatory system | CPT/HCPCS: 80061; 83695 ==

== ENCOUNTER 2025-02-11 08:37 | Outpatient (CLI) | payer MEDICARE, BC, SELFPAY ==
--- NOTE | 2025-02-11 09:00 | CRLHL7_ITS ---
For Patients: As a result of the Century Cures Act, medical imaging exams and procedure reports are released immediately into your electronic medical record. You may view this report before your referring provider. If you have questions, please contact your health care provider. INDICATION: INDENTION ON TOP OF HEAD NOTICED 3 WEEKS AGO. COMPARISON: none TECHNIQUE: A CT volumetric acquisition was performed of the brain without IV contrast. Please note that all CT scans at this facility use dose modulation, iterative reconstruction, and/or weight-based dosing when appropriate to reduce radiation dose to as low as reasonably achievable. FINDINGS: The CT images reveal a normal appearance of the cerebral ventricles and basal cisterns. There is no evidence of intracranial hemorrhage, tissue infarction or mass effect. The mastoid air cells and middle ear cavities are clear. The calvarium appears intact. Tiny mucous retention cysts are located in both maxillary sinuses. Atrophy of the nasal turbinate mucosa noted with paradoxical turn of the middle turbinates. Narrowing and spurring at the temporomandibular joints. Opacification of 1 of the posterior left ethmoid air cells. IMPRESSION: No intracranial abnormality. Mild sinus disease. Chronic atrophic changes to the nasal turbinate mucosa. No calvarial defect. Please note that all CT scans at this facility use dose modulation, iterative reconstruction, and/or weight-based dosing when appropriate to reduce radiation dose to as low as reasonably achievable. Dictated by Reginald Harper MD @ 02/11/2025 10:17:42 AM (Electronically Signed)
== END 2025-02-11 08:38 | disposition home or self-care (01) ==
LOC: CT 08:37
PROVIDERS: PCP Nurse Practitioner Family; Visit Provider Nurse Practitioner Family
DX: M95.2 Other acquired deformity of head (principal)
CPT/HCPCS: 70450

== ENCOUNTER 2025-04-15 14:15 | Outpatient (CLI) | payer MEDICARE, BC, SELFPAY ==
--- NOTE | 2025-04-15 14:30 | CRLHL7_ITS ---
For Patients: As a result of the Cures Act, medical imaging exams and procedure reports are released immediately into your electronic medical record. You may view this report before your referring provider. If you have questions, please contact your health care provider. INDICATION: Low back pain. TECHNIQUE: Multisequence multiplanar MRI of the lumbar spine without the use of intravenous contrast. COMPARISON: MRI lumbar spine dated 01/28/2023. FINDINGS: Normal vertebral alignment, stature, and intrinsic marrow signal intensity. Similar mild multilevel disc desiccation and height loss. The conus medullaris terminates normally at the L1-L2 level. T12-L1: Shallow symmetric disc bulge. No significant spinal canal or neural foraminal stenosis. L1-L2: Symmetric disc bulge. No significant spinal canal or neural foraminal stenosis. L2-L3 and L3-L4: No significant spinal canal or neural foraminal stenosis. L4-L5: Shallow symmetric disc bulge. Similar tiny left foraminal disc extrusion questionably contacting the exiting L4 nerve root (series 3, image 13). Mild facet joint arthrosis. No significant spinal canal or neural foraminal stenosis. L5-S1: Symmetric disc bulge. Mild facet joint arthrosis. No significant spinal canal or neural foraminal stenosis. IMPRESSION: 1. At L4-L5, similar tiny left foraminal disc extrusion questionably contacting the exiting L4 nerve root (series 3, image 13). 2. Similar mild degenerative changes at the remaining levels without significant spinal canal or neural foraminal stenosis. Dictated by Jesus Guidry MD @ 04/16/2025 4:34:20 PM (Electronically Signed)
--- NOTE | 2025-04-15 15:30 | CRLHL7_ITS ---
For Patients: As a result of the Century Cures Act, medical imaging exams and procedure reports are released immediately into your electronic medical record. You may view this report before your referring provider. If you have questions, please contact your health care provider. DXA BONE MINERAL DENSITY STUDY Current height (in): 60. Weight (lb): 119. Menopause age: 40. Ethnicity: White. 1. Have you had a previous hip or vertebral fracture? Yes. 2. Have you had any fractures during your adult life which did not result from significant trauma (e.g., auto accident)? Yes. 3. Did either of your parents have a hip fracture? Yes. 4. Do you smoke? No. 5. Have you ever taken Glucocorticoids? Yes. 6. Do you have rheumatoid arthritis? No. 7. Do you have secondary osteoporosis? No. 8. Do you drink 3 or more alcoholic drinks per day? No. 9. Are you being treated for osteoporosis? Yes. 10. Have you ever taken any of the following medications: Actonel, Evista, Fosamax, Miacalcin, Reclast, Boniva, Forteo, HRT (i.e. estrogen/hormone therapy), Protelos, Prolia, Vitamin D, Calcium, other ??? please specify. ANSWER: Yes, Fosamax, Reclast, vitamin D, calcium. 11. Do you have any of the following medical conditions: Anorexia or bulimia, asthma or emphysema, end stage renal disease, hyperparathyroidism, any seizure disorders, cancer, inflammatory bowel diseases, hysterectomy, other ??? please specify. ANSWER: Yes, asthma or emphysematous, lupus. 12. What was your maximum height (inches)? 62. 13. Do you perform weight bearing exercise regularly? Yes. 14. Do you regularly consume dairy products? Yes. 15. Do you drink caffeinated beverages? Yes. 16. At what age did your period start? 16. 17. Are you premenopausal? No. 18. How many full term pregnancies have you had? 2. 19. Have you ever missed your period for more than 6 months in a row (not including or menopause)? No. TECHNIQUE: Bone mineral density study was performed using the [employer]. FINDINGS: The results of the study expressed as bone mineral density (BMD) are as follows: Lumbar spine L1 to L4: BMD: 0.686 g/cm2. T-score: -3.3. Z-score: -1.5. Neck Left: BMD: 0.468 g/cm2. T-score: -3.4. Z-score: -1.9. Right: BMD: 0.516 g/cm2. T-score: -3.0. Z-score: -1.5. Total Left: BMD: 0.596 g/cm2. T-score: -2.8. Z-score: -1.6. Right: BMD: 0.596 g/cm2. T-score: -2.8. Z-score: -1.6. IMPRESSION: Osteoporosis. *Comparison exams done prior to 10/2019 were performed on different unit, TiVo. COMPARISON: Compared with scan of 04/10/2023, the bone mineral density has increased by 1.0 percent at the spine and increased by 18.4 percent at the hip. Reginald Harper M.D. Diagnostic Radiologist [email or web address] [place]/Dictated by: Reginald Harper MD @ 04/16/2025 9:45:00 AM (Electronically Signed)
== END 2025-04-15 14:16 | disposition home or self-care (01) ==
LOC: MRI 14:16
PROVIDERS: PCP Nurse Practitioner Family; Visit Provider Nurse Practitioner Family
DX: M54.50 Low back pain, unspecified (principal); M51.26 Other intervertebral disc displacement, lumbar region; M47.816 Spondylosis without myelopathy or radiculopathy, lumbar region
CPT/HCPCS: 72148; 77080